=== PATIENT | female | born 1990 | race Caucasian/White ===

== ENCOUNTER → 2022-12-24 | Outpatient (CLI) | payer OTHER, SELFPAY ==
--- NOTE | 2022-12-24 15:18 | US_ITS ---
STUDY: ULTRASOUND OF THE FEMALE PELVIS - COMPLETE REASON FOR EXAM: Female, 32 years old. infertility LMP: TECHNIQUE: Transabdominal and transvaginal TECHNICAL QUALITY: Adequate. COMPARISON: None. FINDINGS: The uterus is anteverted and is in a midline position. The uterus measures 8.6 x 4.8 x 3.4 cm. Normal uterine cervix. The endometrium measures 10 mm in thickness, and is hyperechoic. There is no demonstrated endometrial mass. There is a small posterior fibroid measuring 2.1 x 1.8 x 1.2 cm. I.U.D. - The patient does not have an I.U.D. The right ovary is visualized. The right ovary measures 4.7 x 3.2 x 3 cm. There is no right ovarian cyst or ovarian mass. Small complex cyst measuring 2.1 x 2.1 x 2 cm . There is normal arterial and normal venous vascularity. The left ovary is visualized. The left ovary measures 3.1 x 2.1 x 1.7 cm cm. Small left ovarian cyst measuring 1.2 x 1 x 0.6 cm. There is no visualized left adnexal mass or complex lesion. There is normal arterial and normal venous vascularity. There is mild fluid in the cul-de-sac. The pre void volume of the bladder was 328.19 ml. US/Pelvic w/ Transvaginal IMPRESSION: Small complex right ovarian cyst and smaller simple cyst in left ovary Mild fluid in the cul-de-sac possibly due to ovulation. Electronically Signed: Sai Grissom MD at 16:58 EDT ,
== END | disposition home or self-care (01) ==
PROVIDERS: PCP Nurse Practitioner Family; Referring Provider Obstetrics & Gynecology; Visit Provider Obstetrics & Gynecology
DX: N97.9 Female infertility, unspecified (principal)
CPT/HCPCS: 76830; 76856

== ENCOUNTER → 2023-02-02 | Outpatient (CLI) | payer OTHER, SELFPAY ==
[2023-02-02 10:17] LABS: hCG Titer Quant., Serum 1074 mIU/mL (1-3)
== END | disposition home or self-care (01) ==
LOC: PAVLAB 09:16
PROVIDERS: PCP Nurse Practitioner Family; Referring Provider Nurse Practitioner Women's Health; Visit Provider Nurse Practitioner Women's Health
DX: N91.2 Amenorrhea, unspecified (principal)
CPT/HCPCS: 36415; 84702

== ENCOUNTER → 2023-02-04 | Outpatient (CLI) | payer OTHER, SELFPAY ==
[2023-02-04 12:03] LABS: hCG Titer Quant., Serum 2393 mIU/mL (1-3)
== END | disposition home or self-care (01) ==
LOC: PAVLAB 10:44
PROVIDERS: PCP Nurse Practitioner Family; Referring Provider Nurse Practitioner Women's Health; Visit Provider Nurse Practitioner Women's Health
DX: N91.2 Amenorrhea, unspecified (principal)
CPT/HCPCS: 36415; 84702

== ENCOUNTER → 2023-02-11 | Outpatient (CLI) | payer OTHER, SELFPAY ==
--- NOTE | 2023-02-11 14:15 | US_ITS ---
STUDY: FIRST TRIMESTER OBSTETRICAL ULTRASOUND REASON FOR EXAM: Female, 32 years old confirm RICHARD LMP: December 12, 2022. TECHNIQUE: Transvaginal TECHNICAL QUALITY: Adequate. PRIOR ULTRASOUND: None. FINDINGS: There is visualization of a single gestational sac in a normal intrauterine position. The mean sac diameter (MSD) measures 1.85 cm, indicating an estimated gestational age (EGA) of 6 weeks, 6 days. The gestational sac shape is within normal limits. There is a visualized yolk sac. The yolk sac measures 4.5 mm. The placenta is non-visualized. There is visualization of a live embryo. The crown-rump length (CRL) measures 5.2 mm, indicating an estimated gestational age (EGA) of 6 weeks, 3 days. There is demonstrated cardiac activity with a heart rate of 78 bpm. The estimated gestation age (EGA) by LMP is 6 weeks, 1 days. The estimated date of delivery (RICHARD) by LMP is October 06, 2023. The estimated gestation age (EGA) by US is 6 weeks, 5 days. The estimated date of delivery (RICHARD) by US is October 02, 2023. The uterus measures 9.4 cm x 5.3 cm x 4.3 cm. This is 1.6 cm x 1.6 cm x 1.2 cm fibroid. Findings suggestive of a partially septated uterus. The cervix is closed. The right ovary measures 2.4 cm x 2.6 x 1.8 cm. There is no right ovarian cyst. There is no visualized right adnexal mass or complex lesion. The left ovary measures 4.8 cm x 3.3 cm x 2.6 cm. There is no left ovarian cyst. There is no visualized left adnexal mass or complex lesion. There is no fluid in the cul de sac. US/Transvaginal w/Preg US IMPRESSION: Single live intrauterine gestation with a mean gestational age of 6 weeks and 3 days. Embryonic heart rate of 78bpm Electronically Signed: Pedrito Wong MD at 13:39 EDT ,
== END | disposition home or self-care (01) ==
LOC: US 14:10
PROVIDERS: PCP Nurse Practitioner Family; Referring Provider Nurse Practitioner Women's Health; Visit Provider Nurse Practitioner Women's Health
DX: Z34.90 Encounter for supervision of normal pregnancy, unspecified, unspecified trimester (principal)
CPT/HCPCS: 76817

== ENCOUNTER → 2023-02-18 | Outpatient (CLI) | payer OTHER, SELFPAY ==
--- NOTE | 2023-02-18 16:38 | US_ITS ---
STUDY: FIRST TRIMESTER OBSTETRICAL ULTRASOUND REASON FOR EXAM: Female, 32 years old patient with early . LMP: December 30, 2022. TECHNIQUE: Transvaginal TECHNICAL QUALITY: Adequate. PRIOR ULTRASOUND: Pelvic ultrasound dated February 11, 2023. FINDINGS: There is visualization of a single gestational sac in a normal intrauterine position. The mean sac diameter (MSD) measures 2.6 cm, indicating an estimated gestational age (EGA) of 7 weeks, 4 days. The gestational sac shape is within normal limits. There is a visualized yolk sac. The yolk sac measures 3.7 mm. The placenta is non-visualized. There is visualization of a live embryo. The crown-rump length (CRL) measures 7.2 mm, indicating an estimated gestational age (EGA) of 6 weeks, 5 days. There is demonstrated cardiac activity with a heart rate of 121 bpm and 132 bpm. The estimated gestation age (EGA) by LMP is 7 weeks, 1 days. The estimated date of delivery (RICHARD) by LMP is October 06, 2023. The estimated gestation age (EGA) by US is 7 weeks, 1 days. The estimated date of delivery (RICHARD) by US is October 06, 2023.. The uterus measures 9.9 x 5.2 x 6.6 cm. There is a small hypoechoic nodule within the posterior uterine myometrium measuring 1.4 x 1 x 1.7 cm. This is probably a small leiomyoma. The cervix is closed. The right ovary measures . There is no right ovarian cyst. There is no visualized right adnexal mass or complex lesion. The left ovary measures 3.9 x 2.3 x 2.8 cm. There is left ovarian cyst measuring 1.7 x 1.8 x 2.1 cm. There may be a corpus luteum as well arising from the left ovary measuring 1.8 x 1.5 x 1.7 cm. There is no visualized left adnexal mass or complex lesion. Color Doppler documents blood flow to both ovaries. There is no fluid in the cul de sac. US/Transvaginal w/Preg US IMPRESSION: Single living intrauterine gestation with estimated gestational age by size 7 weeks 1 day. Electronically Signed: India Hall MD at 1:46 EDT ,
== END | disposition home or self-care (01) ==
LOC: OPUS 16:35 → US 16:37
PROVIDERS: PCP Nurse Practitioner Family; Referring Provider Nurse Practitioner Women's Health; Visit Provider Nurse Practitioner Women's Health
DX: Z34.90 Encounter for supervision of normal pregnancy, unspecified, unspecified trimester (principal)
CPT/HCPCS: 76817

== ENCOUNTER → 2023-02-24 | Outpatient (CLI) | payer OTHER, SELFPAY ==
[2023-02-24 14:20] LABS: Absolute Lymphocyte Count 2.51 X10^3/uL (0.83-4.51); Absolute Neutrophil Count 7.6 X10^3/uL (2.0-7.7); Basophil# 0.05 X10^3/uL; Basophil% 0.5 % (0-1); Eosinophil# 0.11 X10^3/uL; Hematocrit 39.5 % (37-47); Hemoglobin 13.2 g/dL (12.0-15.0); Lymphocyte # 2.51 X10^3/ul (0.83-4.51); Lymphocyte % 22.9 % (19-41); Mean Corp Hgb Conc 33.4 g/dL (32-36); Mean Corpuscular Hgb 28.3 pg (27.0-32.0); Mean Corpuscular Volume 84.8 fL (81-99); Mean Platelet Vol. 9.5 fl (6.2-12.0); Monocyte# 0.67 X10^3/uL; Monocyte% 6.1 % (0-10); NRBC Flagged by Analyzer 0 % (0-5); Neutrophil # 7.58 X10^3/uL (2.7-7.7); Neutrophil % 69.2 % (47-70); Platelet Count 323 K/mm3 (150-450); RBC Distribution Width CV 12.7 % (11.6-14.6); RBC Distribution Width SD 38.9 fl (35.1-43.9); Red Blood Count 4.66 M/mm3 (4.2-5.4)
[2023-02-24 15:50] LABS: HIV - WCH Non-Reactive (Nonreactive); Hepatitis B Surface Antigen Non-Reactive (Nonreactive); Hepatitis C Antibody Non-Reactive (Nonreactive); Rubella IgG Reactive (Nonreactive); Syphilis Antibodies Non-reactive
== END | disposition home or self-care (01) ==
PROVIDERS: PCP Nurse Practitioner Family; Referring Provider Obstetrics & Gynecology; Visit Provider Obstetrics & Gynecology
DX: Z34.90 Encounter for supervision of normal pregnancy, unspecified, unspecified trimester (principal)
CPT/HCPCS: 36415; 84702; 85025; 86703; 86762; 86780; 86803; 86850; 86900; 86901; 87340

== ENCOUNTER → 2023-02-26 | Outpatient (CLI) | payer OTHER, SELFPAY | END | disposition home or self-care (01) | LOC: PAVLAB 14:15 | PROVIDERS: PCP Nurse Practitioner Family; Referring Provider Obstetrics & Gynecology; Visit Provider Obstetrics & Gynecology | DX: O26.859 Spotting complicating pregnancy, unspecified trimester (principal); Z3A.00 Weeks of gestation of pregnancy not specified | CPT/HCPCS: 36415; 84702 ==

== ENCOUNTER → 2023-03-05 | Outpatient (CLI) | payer OTHER, SELFPAY ==
[2023-03-07 14:12] LABS: Chlamydia By Nucleic Acid AMP Negative (Negative); Gonococcus By Nucleic Acid AMP Negative (Negative)
== END | disposition home or self-care (01) ==
LOC: LABSPEC 10:38
PROVIDERS: PCP Nurse Practitioner Family; Referring Provider Obstetrics & Gynecology; Visit Provider Obstetrics & Gynecology
DX: O09.90 Supervision of high risk pregnancy, unspecified, unspecified trimester (principal); Z3A.00 Weeks of gestation of pregnancy not specified
CPT/HCPCS: 87086; 87491; 87591

== ENCOUNTER → 2023-03-30 | Outpatient (CLI) | payer OTHER, SELFPAY ==
[2023-03-30 13:03] LABS: Glucose Challenge Gest 1H 50g 132 mg/dL (70-140)
== END | disposition home or self-care (01) ==
PROVIDERS: PCP Nurse Practitioner Family; Referring Provider Obstetrics & Gynecology; Visit Provider Obstetrics & Gynecology
DX: O09.90 Supervision of high risk pregnancy, unspecified, unspecified trimester (principal); Z3A.00 Weeks of gestation of pregnancy not specified
CPT/HCPCS: 36415; 82950

== ENCOUNTER 2023-04-24 10:38 | Outpatient (CLI) | payer OTHER, SELFPAY ==
[2023-04-24] MEDS: 0.9% NaCl Peripheral Flush Adult/Peds IV (11:03)
[2023-04-24] MEDS: Dextrose 5%-Lactated Ringers 1,000 ML 999 ML IV (11:03)
[2023-04-24] MEDS: Metoclopramide 10 MG/2 ML Vial IV (11:04)
[2023-04-24 11:10] VITALS: BP 127/76; PULSE 74; RESP 16; TEMP 36.3; O2SAT 97; BMI 31.7
[2023-04-24 12:18] VITALS: BP 109/65; PULSE 74
== END 2023-04-24 10:39 | disposition home or self-care (01) ==
LOC: MEDOUTP 10:38
PROVIDERS: PCP Nurse Practitioner Family; Referring Provider Obstetrics & Gynecology; Visit Provider Obstetrics & Gynecology
DX: E86.0 Dehydration (principal)
CPT/HCPCS: 96365; 96375; A4216

== ENCOUNTER → 2023-07-02 | Outpatient (CLI) | payer OTHER, SELFPAY ==
[2023-07-02 09:42] LABS: Absolute Lymphocyte Count 2.23 X10^3/uL (0.83-4.51); Absolute Neutrophil Count 6.8 X10^3/uL (2.0-7.7); Basophil# 0.03 X10^3/uL; Basophil% 0.3 % (0-1); Hematocrit 35.7 % (37-47); Lymphocyte # 2.23 X10^3/ul (0.83-4.51); Lymphocyte % 23.2 % (19-41); Mean Corp Hgb Conc 33.6 g/dL (32-36); Mean Corpuscular Hgb 28.8 pg (27.0-32.0); Mean Corpuscular Volume 85.6 fL (81-99); Mean Platelet Vol. 9.2 fl (6.2-12.0); Monocyte# 0.45 X10^3/uL; Monocyte% 4.7 % (0-10); NRBC Flagged by Analyzer 0 % (0-5); Neutrophil # 6.76 X10^3/uL (2.7-7.7); Neutrophil % 70.4 % (47-70); Platelet Count 324 K/mm3 (150-450); RBC Distribution Width CV 12.6 % (11.6-14.6); RBC Distribution Width SD 39.3 fl (35.1-43.9); Red Blood Count 4.17 M/mm3 (4.2-5.4); White Blood Count 9.6 K/mm3 (4.4-11.0)
[2023-07-02 10:18] LABS: Glucose Challenge Gest 1H 50g 120 mg/dL (70-140)
[2023-07-02 10:51] LABS: HIV - WCH Non-Reactive (Nonreactive); Syphilis Antibodies Non-reactive
== END | disposition home or self-care (01) ==
LOC: PAVLAB 08:58
PROVIDERS: PCP Nurse Practitioner Family; Referring Provider Obstetrics & Gynecology; Visit Provider Obstetrics & Gynecology
DX: O09.90 Supervision of high risk pregnancy, unspecified, unspecified trimester (principal); Z13.1 Encounter for screening for diabetes mellitus; Z3A.00 Weeks of gestation of pregnancy not specified
CPT/HCPCS: 36415; 82950; 85025; 86703; 86780; 86850; 86900; 86901

== ENCOUNTER 2023-08-03 14:55 | Outpatient (CLI) | payer OTHER, SELFPAY ==
[2023-08-03] VITALS (14 sets, daily range): BP systolic 120; BP diastolic 86; PULSE 78–100; TEMP 36.9; O2SAT 97–99; BMI 33.1
--- NOTE | 2023-08-03 15:17 | US_ITS ---
STUDY: OBSTETRICAL ULTRASOUND - BIOPHYSICAL PROFILE REASON FOR EXAM: Female, 32 years old nonreassuring FHR LMP: 12/30/2022 PRIOR ULTRASOUND: 02/18/2023. TECHNIQUE: Transabdominal TECHNICAL QUALITY: Adequate. FINDINGS: There is a single intrauterine fetus. The fetus is in a cephalic presentation. There is demonstrated cardiac activity with a heart rate of 152 bpm. There is a normal amniotic fluid volume. The largest amniotic fluid pocket measures 6.5 cm. The amniotic fluid index (PARVEZ) is 18.1 cm. The placenta is posterior in location and is not low lying. There are Grade 1 placental changes. Age by LMP: 30 weeks, 6 days. RICHARD by LMP: 10/06/2023. BIOPHYSICAL PROFILE: Breathing Movements (FBM): 2 Gross Body Movements (GBM): 2 Tone (FT): 2 Amniotic Fluid Volume (AFV): 2 TOTAL SCORE: US/Biophysical Prof W/O Non Stres IMPRESSION: Normal biophysical profile of 02/17. Electronically Signed: Rakesh Yeboah MD at 17:40 EST ,
--- OUTSIDE RECORDS SUMMARY | 2023-08-03 15:35 | XMS RPT_ITS | CCD ---
Author Name Unknown Address [address] [place] [address] Organization [facility] Care Team Providers Care Quality Controller Name Role Phone Tizzano, Mateo P Unavailable Unavailable Tizzano, Mateo P Unavailable Unavailable No Doctor Assigned, Nodr Unavailable Unavail able Tizzano, Mateo P Unavailable Unavailable Tizzano, Mateo P Unavailable Unavailable No Doctor Assigned, Nodr Unavailable Unavail able Tizzano, Mateo P Unavailable Unavailable No Doctor Assigned, Nodr Unavailable Unavail able Inverness, Radha D Unavailable Unavailable Inverness, Radha D Unavailable Unavailable Inverness, Radha D Unavailable Unavailable Inverness, Radha D Unavailable Unavailable Mervin, Radha D Unavailable Unavailable Inverness, Radha D Unavailable Unavailable Inverness, Radha D Unavailable Unavailable Mervin, Radha D Unavailable Unavailable Inverness, Radha D Unavailable Unavailable Mervin, Radha D Unavailable Unavailable Inverness, Radha D Unavailable Unavailable Mervin, Radha D Unavailable Unavailable Inverness, Radha D Unavailable Unavailable Mervin, Radha D Unavailable Unavailable Inverness, Radha D Unavailable Unavailable Mervin, Radha D Unavailable Unavailable Mervin, Radha D Unavailable Unavailable Mervin, Radha D Unavailable Unavailable Ezike, Duane A Unavailable Unavailable Ezike, Duane A Unavailable Unavailable Inverness, Radha D Unavailable Unavailable Shakir, Guru W Unavailable Unavailable Shakir, Guru W Unavailable Unavailable Inverness, Radha D Unavailable Unavailable Mervin, Radha D Unavailable Unavailable Inverness, Radha D Unavailable Unavailable Mervin, Radha D Unavailable Unavailable Mervin, Radha D Unavailable Unavailable Mervin, Radha D Unavailable Unavailable Tizzano, Mateo P Unavailable Unavailable Inverness, Radha D Unavailable Unavailable Tizzano, Mateo P Unavailable Unavailable Tizzano, Mateo P Unavailable Unavailable Mervin, Radha D Unavailable Unavailable Tizzano, Mateo P Unavailable Unavailable Inverness, Radha D Unavailable Unavailable Tizzano, Mateo P Unavailable Unavailable Inverness, Radha D Unavailable Unavailable Tizzano, Mateo P Unavailable Unavailable Inverness, Radha D Unavailable Unavailable Tizzano, Mateo P Unavailable Unavailable Mervin, Radha D Unavailable Unavailable GUEVARA GILLIAM Unavailable Unavailable MERVIN, RADHA D. Unavailable Unavailable Noemi Strange CNP Primary Care Provider [phone] Noemi Strange Unavailable Unavailable Unavailable NewtonRommelsparkle Vizcarra Unavailable Free, Text Entry Unavailable Unavailable Noemi Strange Unavailable Rafa Glez Unavailable Unavailable Bryce Jaquez Unavailable Unavailable ISAAC, LOUIE F Attending Unavailable NOEMI STRANGE Primary Care Unavailable LADARIUS, SIMÓN S Referring Unavailable GRAY, LOUIE F Attending Unavailable NOEMI STRANGE Primary Care Unavailable JOCELIN DURANDY S Referring Unavailable NOEMI STRANGE Primary Care Unavailable MAYRA GOTTLIEB Referring Unavailabl SUBHASH Duncan Attending Unavailable Allergies Allergy Classification Reported Allergen(s) Allergy Type Date of Onset Reaction(s) Facility Opioid Agonists (7 sources) Codeine; Translations: [codeine] Drug Allergy 1 Nausea and Vomiting [facility] Sulfonamides (antibiotic) (4 sources) Sulfonamides (Antibiotic); Translations: [Sulfa Drugs] Drug Allergy Unknown [facility] Work Phone: (8 sources) codeine; Translations: [codeine] Drug Allergy AOF, Vomiting [facility] Repository (9 sources) Sulfonamides (Antibiotic); Translations: [sulfa drugs] Propensity to adverse reactions to drug (disorder) AOF, Unknown [facility] Repository Medications Current Medications Medication Drug Class(es) Dates Sig (Normalized) Sig (Original) ondansetron 4 mg disintegrating oral tablet (11 sources) Serotonin-3 Receptor Antagonist Start: 08-01-2022 End: 08-04-2022 take 1 tablet by mouth three times daily ondansetron 4 mg oral tablet, disintegrating ; 1 tab(s) orally 3 times a day Quantity: 12 Refills: 0 Ordered: 01-Aug-2022 Bryce Jaquez Start: 01-Aug-2022 End: 04-Aug-2022 Generic Substitution Allowed Completed/Discontinued Medications Medication Drug Class(es) Dates Sig (Normalized) Sig (Original) azithromycin 250 mg oral tablet (3 sources) Macrolide Antimicrobial Start: 11-26-2021 End: 01-20-2022 Azithromycin 250 MG Oral Tablet TAKE 2 TABLETS ON DAY 1 THEN TAKE 1 TABLET A DAY FOR 4 DAYS. Quantity: 1 Refills: 0 Ordered: 26-Nov-2021 Rafa Chou Start : 26-Nov-2021 End : 20-Jan-2022 Complete cholecalciferol 0.05 mg oral capsule (2 sources) Vitamin D Start: 01-20-2022 take 1 capsule by mouth once daily QC Vitamin D3 50 MCG (1999 UT) Oral Capsule TAKE 1 CAPSULE Daily Quantity: 0 Refills: 0 Ordered: 20-Jan-2022 Rafa Chou Start : 20-Jan-2022 Active dextromethorphan hydrobromide 20 mg / guaiFENesin 400 mg oral tablet (3 sources) Uncompetitive R-iqujzx-M-aspartat e Receptor Antagonist, Sigma-1 Agonist Start: 11-26-2021 End: 01-20-2022 take 1 tablet by mouth every four hours as needed Dextromethorphan- guaiFENesin 20-400 MG Oral Tablet TAKE 1 TABLET EVERY 4 HOURS NEEDED. Quantity: 28 Refills: 0 Ordered: 26-Nov-2021 Rafa Chou Start : 26-Nov-2021 End : 20-Jan-2022 Complete hydrOXYzine hydrochloride 10 mg oral tablet (12 sources) Antihistamine Start: 07-26-2020 take 1-2 tablets by mouth every four to six hours as needed hydrOXYzine HCl - 10 MG Oral Tablet 1-2 tabs every 4-6 hours prn Quantity: 40 Refills: 1 Ordered: 18-Jan-2021 Gema Lipscomb Start : 26-Jul-2020 Active levonorgestrel 0.688482 mg/hr intrauterine system (6 sources) Progestin, Progestin-containin g Intrauterine Device Mirena (52 MG) 20 MCG/24HR Intrauterine Intrauterine Device Quantity: 0 Refills: 0 Ordered: 24-Oct-2020 DO Active Magnesium (4 sources) Magnesium TABS Quantity: 0 Refills: 0 Ordered: 18-Jan-2021 DO Active naratriptan 2.5 mg oral tablet (5 sources) Serotonin-1b and Serotonin-1d Receptor Agonist Start: 12-18-2020 Naratriptan HCl - 2.5 MG Oral Tablet Quantity: 9 Refills: 0 Ordered: 18-Dec-2020 DO Start : 18-Dec-2020 Active Problems Active Problems Problem Classification Problem Date Documented Date Episodic/Chronic Anxiety disorders (11 sources) Generalized anxiety disorder; Translations: [Generalized anxiety disorder] Chronic Cardiac dysrhythmias (4 sources) Tachycardia; Translations: [Tachycardia, unspecified] Onset: 08-01-2022 08-01-2022 Episodic Contraceptive and procreative management (13 sources) Intrauterine contraceptive device in situ; Translations: [Presence of intrauterine contraceptive device] Resolved: 04-23-2021 Episodic Past or Other Problems Problem Classification Problem Date Documented Da te Episodic/Chronic Unclassified (11 sources) Finding of menstrual bleeding; Translations: [Menstruation] Results Test Name Value Interpretation Reference Range Facil ity Vital Signs Date Time Vital Sign Value Performing Clinician Facility 08-04-2022 09:50-0500 Body height 170.18 cm Rafa Egand Work Phone: [facility] Work Phone: 08-04-2022 09:50-0500 Body mass index (BMI) [Ratio] 33.12 kg/m2 Rafa Egand Work Phone: [facility] Work Phone: 08-04-2022 09:50-0500 Body surface area Derived from formula 2.07 m2 Rafa Egand Work Phone: [facility] Work Phone: 08-04-2022 09:50-0500 Body weight 95.91 kg Rafa Vizcarra Newton Work Phone: [facility] Work Phone: 08-04-2022 09:50-0500 Diastolic blood pressure 80 mm[Hg] Rafa Vizcarra Newton Work Phone: [facility] Work Phone: 08-04-2022 09:50-0500 Heart rate 95 /min Rafa Glez Work Phone: [facility] Work Phone: 08-04-2022 09:50-0500 Systolic blood pressure 126 mm[Hg] Rafa Glez Work Phone: [facility] Work Phone: 08-01-2022 19:00-0500 Diastolic blood pressure 95 mm[Hg] Text Entry [facility] 08-01-2022 19:00-0500 Heart rate 84 /min Text Entry [facility] 08-01-2022 19:00-0500 Respiratory rate 18 /min Text Entry [facility] 08-01-2022 19:00-0500 SaO2% (BldA) [Mass fraction] 97 % Text Entry [facility] 08-01-2022 19:00-0500 Systolic blood pressure 120 mm[Hg] Text Entry [facility] 08-01-2022 15:43-0500 Body height 172.7 cm Text Entry [facility] 08-01-2022 15:43-0500 Body temperature 97.7 [degF] Text Entry [facility] 08-01-2022 15:43-0500 Body weight 95.5 kg Text Entry [facility] 01-20-2022 08:38-0400 Body height 170.18 cm Rafa Glez Work Phone: [facility] Work Phone: 01-20-2022 08:38-0400 Body mass index (BMI) [Ratio] 33.21 kg/m2 Rafa Glez Work Phone: [facility] Work Phone: 01-20-2022 08:38-0400 Body surface area Derived from formula 2.07 m2 Rafa Glez Work Phone: [facility] Work Phone: 01-20-2022 08:38-0400 Body weight 96.19 kg Rafa Egand Work Phone: [facility] Work Phone: 01-20-2022 08:38-0400 Diastolic blood pressure 84 mm[Hg] Rafa Vizcarra Crocheron Work Phone: [facility] Work Phone: 01-20-2022 08:38-0400 Heart rate 79 /min Rafa Vizcarra Crocheron Work Phone: [facility] Work Phone: 01-20-2022 08:38-0400 Systolic blood pressure 130 mm[Hg] Rafa Egand Work Phone: [facility] Work Phone: 11-26-2021 09:42-0400 Body height 170.18 cm Rafa Egand Work Phone: [facility] Work Phone: 11-26-2021 09:42-0400 Body mass index (BMI) [Ratio] 33.07 kg/m2 Rafa Egand Work Phone: [facility] Work Phone: 11-26-2021 09:42-0400 Body surface area Derived from formula 2.07 m2 Rafa Egand Work Phone: [facility] Work Phone: 11-26-2021 09:42-0400 Body weight 95.77 kg Rafa Egand Work Phone: [facility] Work Phone: 11-26-2021 09:42-0400 Diastolic blood pressure 76 mm[Hg] Rafa Vizcarra Crocheron Work Phone: [facility] Work Phone: 11-26-2021 09:42-0400 Systolic blood pressure 126 mm[Hg] Rafa Glez Work Phone: [facility] Work Phone: 06-17-2021 11:02-0500 Body height 170.18 cm Noemi Strange Work Phone: [place] [address] [place] Work Phone: 06-17-2021 11:02-0500 Body mass index (BMI) [Ratio] 32.49 kg/m2 Noemi Strange Work Phone: [place] [address] [place] Work Phone: 06-17-2021 11:02-0500 Body surface area Derived from formula 2.05 m2 Noemi Strange Work Phone: [place] [address] [place] Work Phone: 06-17-2021 11:02-0500 Body temperature 97.1 [degF] Noemi Strange Work Phone: [place] [address] [place] Work Phone: 06-17-2021 11:02-0500 Body weight 94.1 kg Noemi Strange Work Phone: [place] [address] [address] Work Phone: 06-17-2021 11:02-0500 Diastolic blood pressure 80 mm[Hg] Noemi Strange Work Phone: [place] [address] [address] Work Phone: 06-17-2021 11:02-0500 Systolic blood pressure 120 mm[Hg] Noemi L Celena Work Phone: [place] [address] [address] Work Phone: 04-23-2021 09:54-0400 Body height 170.18 cm Noemi Strange Work Phone: [place] [address] [address] Work Phone: 04-23-2021 09:54-0400 Body mass index (BMI) [Ratio] 32.56 kg/m2 Noemi Strange Work Phone: [place] [address] [address] Work Phone: 04-23-2021 09:54-0400 Body surface area Derived from formula 2.06 m2 Noemi Strange Work Phone: [address] Work Phone: 04-23-2021 09:54-0400 Body temperature 98.2 [degF] Noemi Strange Work Phone: [address] Work Phone: 04-23-2021 09:54-0400 Body weight 94.3 kg Noemi Strange Work Phone: [address] Work Phone: 04-23-2021 09:54-0400 Diastolic blood pressure 78 mm[Hg] Noemi L Celena Work Phone: [address] Work Phone: 04-23-2021 09:54-0400 Systolic blood pressure 118 mm[Hg] Noemi L Celena Work Phone: [address] Work Phone: 02-15-2021 15:26-0400 Body height 170.18 cm Noemi L Celena Work Phone: [facility] Work Phone: 02-15-2021 15:26-0400 Body mass index (BMI) [Ratio] 32.89 kg/m2 Noemi L Celena Work Phone: [facility] Work Phone: 02-15-2021 15:26-0400 Body surface area Derived from formula 2.06 m2 Noemi L Celena Work Phone: [facility] Work Phone: 02-15-2021 15:26-0400 Body weight 95.26 kg Noemi L Celena Work Phone: [facility] Work Phone: 02-15-2021 15:26-0400 Diastolic blood pressure 80 mm[Hg] Noemi L Celena Work Phone: [facility] Work Phone: 02-15-2021 15:26-0400 Heart rate 72 /min Noemi L Celena Work Phone: [facility] Work Phone: 02-15-2021 15:26-0400 Systolic blood pressure 122 mm[Hg] Noemi L Celena Work Phone: [facility] Work Phone: 01-18-2021 10:08-0400 Body height 170.18 cm Noemi L Celena Work Phone: [facility] Work Phone: 01-18-2021 10:08-0400 Body mass index (BMI) [Ratio] 32.65 kg/m2 Noemi L Celena Work Phone: [facility] Work Phone: 01-18-2021 10:08-0400 Body surface area Derived from formula 2.06 m2 Noemi Strange Work Phone: [facility] Work Phone: 01-18-2021 10:08-0400 Body weight 94.55 kg Noemi L Celena Work Phone: [facility] Work Phone: 01-18-2021 10:08-0400 Diastolic blood pressure 80 mm[Hg] Noemi L Celena Work Phone: [facility] Work Phone: 01-18-2021 10:08-0400 Heart rate 76 /min Noemi L Celena Work Phone: [facility] Work Phone: 01-18-2021 10:08-0400 Systolic blood pressure 118 mm[Hg] Noemi Strange Work Phone: [facility] Work Phone: 12-18-2020 09:24-0400 Body height 172.7 cm Erma Raedy DO Work Phone: [facility] 12-18-2020 09:24-0400 Body mass index (BMI) [Ratio] 31.6 kg/m2 Erma Raedy DO Work Phone: [facility] 12-18-2020 09:24-0400 Body temperature 98.29 [degF] Erma Raedy DO Work Phone: [facility] 12-18-2020 09:24-0400 Body weight 94.26 kg Erma Raedy DO Work Phone: [facility] 12-18-2020 09:24-0400 Diastolic blood pressure 90 mm[Hg] Erma Raedy DO Work Phone: [facility] 12-18-2020 09:24-0400 Heart rate 75 /min Erma Raedy DO Work Phone: [facility] 12-18-2020 09:24-0400 Respiratory rate 16 /min Erma Raedy DO Work Phone: [facility] 12-18-2020 09:24-0400 SaO2% (BldA) [Mass fraction] 98 % Erma Raedy DO Work Phone: [facility] 12-18-2020 09:24-0400 Systolic blood pressure 135 mm[Hg] Erma Raedy DO Work Phone: [facility] 11-02-2020 09:47-0400 Body height 172.7 cm Erma Raedy DO Work Phone: [facility] 11-02-2020 09:47-0400 Body mass index (BMI) [Ratio] 31.79 kg/m2 Erma Raedy DO Work Phone: [facility] 11-02-2020 09:47-0400 Body temperature 98.6 [degF] Erma Raedy DO Work Phone: [facility] 11-02-2020 09:47-0400 Body weight 94.85 kg Erma Raedy DO Work Phone: [facility] 11-02-2020 09:47-0400 Diastolic blood pressure 90 mm[Hg] Erma Raedy DO Work Phone: [facility] 11-02-2020 09:47-0400 Heart rate 86 /min Erma Raedy DO Work Phone: [facility] 11-02-2020 09:47-0400 Respiratory rate 16 /min Erma Raedy DO Work Phone: [facility] 11-02-2020 09:47-0400 SaO2% (BldA) [Mass fraction] 100 % Erma Raedy DO Work Phone: [facility] 11-02-2020 09:47-0400 Systolic blood pressure 135 mm[Hg] Erma Raedy DO Work Phone: [facility] Encounters Encounter Date Encounter Type Care Provider Facility Start: 07-14-2023 End: 07-14-2023 ambulatory NOEMI STRANGE [facility] Start: 06-08-2023 End: 06-08-[address] [facility] Start: 05-11-2023 End: 05-11-[address] [facility] Start: 08-04-2022 Office outpatient vi sit 15 minutes Rafa Glez Work Phone: [facility] Work Phone: Start: 08-01-2022 End: 08-01-2022 Emergency department patient visit Bryce Jaquez [facility] Emergency 04 Start: 01-20-2022 Office outpatient vi sit 15 minutes Rafa Glez Work Phone: [facility] Work Phone: Start: 11-27-2021 Chart Update Rafa Egand Work Phone: [facility] Work Phone: Start: 11-26-2021 Office outpatient vi sit 15 minutes Rafa Egand Work Phone: [facility] Work Phone: Start: 06-17-2021 Patient encounter procedure Noemi Vizcarra Seitz Work Phone[facility] Work Phone: Start: 05-25-2021 Chart Update Noemi Strange Work Phone: [facility] Work Phone: Start: 04-23-2021 Periodic preventive med est patient 18-39 yrs Noemi Vizcarra Seitz Work Phone: [facility] Work Phone: Start: 02-15-2021 Office outpatient vi sit 10 minutes Noemi Strange Work Phone: [facility] Work Phone: Start: 01-18-2021 Office outpatient vi sit 15 minutes Noemi Strange Work Phone: [facility] Work Phone: Start: 12-18-2020 End: 12-18-2020 Office outpatient visit 15 minutes Erma Haskins DO Work Phone: [facility] Neurology Procedures Date Procedure Procedure Detail Performing Clinician Start: 08-01-2022 End: 08-01-2022 EKG impression Bryce Jaquez Insertion of intraut erine contraceptive device Noemi Vizcarra Celena Work Phone: Plan of Treatment Date Care Activity Detail Author Start: 01-26-2023 EPV, Provider: Rafa Glez, Status: Pen, Time: 8:15 AM EPV, Provider: Rafa Glez, Status: Pen, Time: 8:15 AM [facility] Work Phone: Start: 01-26-2023 Patient encounter procedure [facility] Start: 01-20-2022 EPV, Provider: Rafa Glez, Status: Pen, Time: 8:45 AM EPV, Provider: Rafa Glez, Status: Pen, Time: 8:45 AM [facility] Work Phone: Start: 01-20-2022 EPV, Provider: Gema Ponce, Status: Pen, Time: 8:30 AM EPV, Provider: Gema Ponce, Status: Pen, Time: 8:30 AM [facility] Work Phone: Start: 06-17-2021 IUDRMVL, Provider: Richardson Mary, Status: Pen, Time: 11:00 AM [facility], Provider: Richardson Mary, Status: Pen, Time: 11:[address] Work Phone: Start: 04-23-2021 Patient encounter procedure ANNUAL, Provider: Richardson Mary, Status: Pen, Time: 9:45 AM [facility] Work Phone: Start: 04-19-2021 End: 04-19-2021 Patient encounter procedure 04/19/2021 Office Visit Neurology Erma Haskins [place] [address] [place] [address] [phone] [facility] Neurology Start: 03-13-2021 Influenza vaccination INFLUENZ A VACCINE (Season Ended) [facility] Start: 12-18-2020 End: 12-18-2020 Patient encounter procedure 12/18/2020 Office Visit Neurology Erma Haskins [place] [address] [place] [address] [phone] [facility] Start: 2009 Screening for malign ant neoplasm of cervix CERVICAL CANCER SCREENING DISCUSSION [facility] Start: 10-22-2007 Third diphtheria, te tanus and acellular pertussis (DTaP) vaccination TDAP (ADULT) [facility] Start: 2006 Tetanus vaccination TETANUS [facility] Start: 2004 COVID-19 VACCINE (1) COVID-19 VACCIN E (1) [facility] Start: 10-22-2003 HIV screening HIV SCREENING DISCUSSION [facility] Start: 2001 HIV screening HIV SCREENING DISCUSSION [facility] Start: 1988 Hepatitis C antibody , confirmatory test HEPATITIS C VIRUS SCREENING [facility] Immunizations Immunization Date Immunization Notes Care Provider Fa cility 10-26-2020 Pfizer-BioNTech COVI D-19 Vacc 30 MCG/0.3ML Intramuscular Suspension Noemi Strange Work Phone: [facility] Work Phone: 09-27-2020 Pfizer-BioNTech COVI D-19 Vacc 30 MCG/0.3ML Intramuscular Suspension Noemi Strange Work Phone: [facility] Work Phone: Payers Date Payer Category Payer Private Health Insurance NALLELY DEL ROSARIO [id number] 2020-Present [id number] 2017 Private Health Insurance [id number] 2017 Private Health Insurance 1988 Unknown [id number] 1988 Unknown [id number] 1988 Unknown [id number] Unknown Unknown [id number] Social History Date Type Detail [facility] Start: 1990 Sex Assigned At Not on file [employer] Exposure to SARS-CoV -2 (event) Not sure [facility] [address] [facility] End: 04-23-2021 Never smoker Never smoker [facility] Work Phone: Goals Date Patient Goal Desired Activity /State Clinical Notes 09-13-2009 to 08-01-2022 Erma Haskins, DO - 12/18/2020 9:40 AM EDTPatient InstructionsErma Haskins, DO - 11/02/2020 10:00 AM EDTPatient Instructions Note Date & Type Note Facility 08-01-2022 History of Present illness Narrative Anahy is a 31 yo female, her etoday for ER follow up. She was treated in ER on 08/01/2022 for nausea and rapid HR. Testing was negative for acuet disease process, she was treated for dehydration with 1 liter of IVF and Zofran for nausea.She continues to complain of nausea and reports pain/pressure under breast bone (points to epigastric), reports she gets a burning sensation with eating.sometime pain radiates to right upper abdomen.reports nauseaDenies: vomiting, constipation or diarrheaReviewed labs and ER work up including: troponin, lipase, liver panel, BMP, CBC, PT/INR, UA, CXR, and blood cultures. All tests were normal. [facility] Work Phone: 11-23-2021 History of Present illness Narrative Anahy is a 31 yo female here today with complaints of severe cough, sore throat, and sinus drainage. She reports Sx onset; sore throat on Thursday, cough started on Thursday, hoarseness started on Thursday. 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 Unsure if been around anyone else ill.Is COVID vaccinated and boosted times 1. She has not had COVID, is unaware if she has been around anyone with COVID [facility] Work Phone: 04-23-2021 Note 32 Date of Procedure: 04/23/2021 Pathologist: [facility], Cytology Date Reported: 05/01/2021 Date Received: 04/24/2021 Submitting Physician: RICHARDSON JEANIE BRANT, DO FINAL CYTOLOGICAL INTERPRETATION A. THINPREP PAP CERVICAL: Specimen adequacy: SATISFACTORY FOR EVALUATION. Quality Indicator: Endocervical/transformation zone component is present. Quality Indicator: Partially obscuring inflammation. General Categorization: NEGATIVE FOR INTRAEPITHELIAL LESION OR MALIGNANCY. HIGH RISK HPV TEST RESULT: HPV GENOTYPE 16 NEGATIVE HPV GENOTYPE 18 NEGATIVE HPV GENOTYPE OTHER NEGATIVE Reference Range: Negative Testing for high-risk (HR) type of human papilloma virus (HPV) is performed by the [employer] sid HPV Test. The sid HPV Test is a qualitative polymerase chain reaction that amplifies DNA of HPV16, HPV18 and 12 other high-risk HPV types (31, 33, 35, 39, 45, 51, 52, 56, 58, 59, 66, and 68) associated with cervical cancer and its precursor lesions. A positive result indicates the presence of HPV DNA due to one or more of the 14 genotypes: 16, 18, 31, 33, 35, 39, 45, 51, 52, 56, 58, 59, 66, and 68. Negative results indicate HPV DNA concentrations are undetectable or below the pre-set threshold for detection. False negative results may be associated with unoptimized sampling. A negative HR HPV result does not exclude the possibility of future cytologic HSIL or underlying CIN2-3 or cancer. This test is approved for cervical specimens by the US Food and Drug Administration. Results of this test should be interpreted in conjunction with the patient?s Pap test results. Please refer to ASCCP current guidelines for the use of HPV DNA testing, result interpretation, and patient management. The performance of this test was verified by the [facility] at [facility]. The lab is certified under the Clinical Laboratory Amendments of 1988 (CLIA 88) as qualified to perform high complexity clinical laboratory testing. This specimen has been analyzed by the [employer] Energy[employer] Imaging System ([employer] an automated imaging and review system, which assists the laboratory in evaluating cells on ThinPrep Pap tests. Following automated imaging, selected leonard from every slide were reviewed by a bicycle mechanic and/or pathologist. Electronically Signed Out By [facility], Cytology//ELC By the signature on this report, the individual or group listed as making the Final Interpretation/Diagnosis certifies that they have reviewed this case. Educational Note: Cervical cytology is a screening procedure primarily for squamous cancers and precursors and has associated false-negative and false-positive results as evidenced by published data. Your patient?s test should be interpreted in this context, together with patient?s history and clinical findings. Regular sampling and follow-up of unexplained clinical signs and symptoms are recommended to minimize false negative results. Clinical History Date of Last Menstrual Period: IUD Other Clinical Conditions: COTEST HPV(Genotype) except for ASC-H, HSIL, Carcinoma - Include HPV Genotype testing Annual Clinical Diagnosis History: Screening for cervical cancer - (Z12.4) Source of Specimen A: THINPREP PAP CERVICAL [facility] Department of Pathology [id number] [facility] Diagnosis Temporomandibular disorder- Primary Temporomandibular joint disorders, unspecified Occipital neuralgia of right side Intractable migraine with aura with status migrainosus Migraine with aura, with intractable migraine, so stated, with status migrainosus [facility] [id number] y.o. female presents for possible Lyme disease. She was at a jew outing where several youths found a tick on their body. She denies seeing a tick on her person. She has a bruise on her left thigh that resembles a bullseye appearance described in Lyme disease so she is concerned. She denies feeling ill.[facility] Work Phone: History of Present illness [id number] G0 presents for annual exam. Patient safe at home denies abuse. Patient has migraines improving with adjustment of meds and finding out there is an occiput component. Patient working on physical activity. Patient COVID vaccinated. Patient does have breast exams no new lumps bumps masses. Patient notes she has an IUD and that they are thinking about conception here in the next couple mo nths. Patient already started vitamins. Patient is no acute concerns [employer] [employer] Work Phone: History of Present illness [id number] presents for IUD removal. Considering fertility in the near future. Been taking vitamins. Patient has no acute [facility] Work Phone: History of Present illness Narrative* The last health maintenance visit was unknown year(s) ago. Concerns raised today include: fatigue and decrease in appetite. The patient's health since the last visit is described as good. There are no interval changes in the patient's PMH, PSH, and current medications. There are no interval changesin the patient's social and family history. She does not have regular dental visits. She complains of vision problems. Vision care includes wearing glasses, an eye examination more than a year ago and 06/2020 last exam. She denies hearing loss. Immunizations status: up to date. * Lifestyle: She consumes a diverse and healthy diet. She has weight concerns. Weight control issues:overweight. She exercises regularly. She exercises yoga 3-4 times a week. She does not use tobacco.She consumes alcohol. She reports drinking 1 drinks per week. She typically drinks wine. denies illicit drug use. * Reproductive health: she reports normal menses. she uses no contraception. she is sexually active. [facility]: 12/28/21. * History: 0. * Cervical cancer screening: cancer screening reviewed and current . patient has no history of an abnormal pap smear. * Metabolic screening: lipid profile performed within the past five years. * Anahy is a 31 yo female here today for annual wellness. She reports her health as good, she complains of increase in fatigue and poor appetite, no weight loss. She sees psychiatry every 3 months,[employer] annually. * denies any SI or HI. * No other health concerns [facility] Work Phone: Summary Purpose Family History No Family History Records FoundUnknown Family Member Name Dates Details No pertinent family history: Mother(V49.89, Z78.9) Status:Active Family history of Graves' di sease: Father(V18.19, Z83.49) Status:Active Unknown Family Member Name Dates Details No pertinent family history: Mother(V49.89, Z78.9) Status:Active Family history of Graves' di sease: Father(V18.19, Z83.49) Status:Active Unknown Family Member Name Dates Details No pertinent family history: Mother(V49.89, Z78.9) Status:Active Family history of Graves' di sease: Father(V18.19, Z83.49) Status:Active Unknown Family Member Name Dates Details No pertinent family history: Mother(V49.89, Z78.9) Status:Active Family history of Graves' di sease: Father(V18.19, Z83.49) Status:Active Unknown Family Member Name Dates Details No pertinent family history: Mother(V49.89, Z78.9) Status:Active Family history of Graves' di sease: Father(V18.19, Z83.49) Status:Active Unknown Family Member Name Dates Details No pertinent family history: Mother(V49.89, Z78.9) Status:Active Family history of Graves' di sease: Father(V18.19, Z83.49) Status:Active Unknown Family Member Name Dates Details No pertinent family history: Mother(V49.89, Z78.9) Status:Active Family history of Graves' di sease: Father(V18.19, Z83.49) Status:Active Unknown Family Member Name Dates Details No pertinent family history: Mother(V49.89, Z78.9) Status:Active Family history of Graves' di sease: Father(V18.19, Z83.49) Status:Active Unknown Family Member Name Dates Details No pertinent family history: Mother(V49.89, Z78.9) Status:Active Family history of Graves' di sease: Father(V18.19, Z83.49) Status:Active Unknown Family Member Name Dates Details No pertinent family history: Mother(V49.89, Z78.9) Status:Active Family history of Graves' di sease: Father(V18.19, Z83.49) Status:Active Advance Directives No Advanced Directives Records FoundNo Advanced Directives Records FoundNo Advanced Directives Records FoundNo Advanced Directives Records FoundNo Advanced Directives Records FoundNo Advanced Directives Records Found Reason for Referral Status Reason Specialty Diagnoses / Procedures Referred By Contact Referred To Contact New Request Physical Therapy Diagnoses Temporomandibular disorder Erma Haskins, DO [address] [place] [address] [facility] [address] [place] [address] Scheduling Instructions . Status Reason Specialty Diagnoses / Procedures Referred By Contact Referred To Contact New Request Physical Therapy Diagnoses Temporomandibular disorder Occipital neuralgia of right side Erma Haskins, DO [address] [place] [address] [facility] [address] [place] [address] Chief Complaint 3 month med check.3 month med check.3 month med check.Bruise/rash consistent with lymes disease.PT IS HERE TODAY FOR A ANNUAL EXAM. LAST PAP 11/2017. HAS NO CONCERNS. DOES A SELF BREAST CHECK OCCASIONALLY. LMP: IUDPT IS HERE TODAY FOR THE REMOVAL OF THE IUD. PT STATES IS NOT INTERESTED IN ANY CONTROL. HAS NO CONCERNS. LMP: IUDPATIENT HERE TODAY WITH COMPLAINTS OF A SORE THROAT, COUGH, SINUS DRAINAGE, AND RIGHT EAR DISCOMFORT.Med refill - doesn't need anything today.ER follow-up. Additional Source Comments INFORMATION SOURCE (unrecogn ized section and content) DATE CREATED AUTHOR AUTHOR'S ORGANIZ ATION 12/31/2017 [facility] DATE CREATED AUTHOR AUTHOR'S ORGANIZ ATION 11/29/2021 [facility] DATE CREATED AUTHOR AUTHOR'S ORGANIZ ATION 01/20/2022 [employer] DATE CREATED AUTHOR AUTHOR'S ORGANIZ ATION 01/20/2022 [facility] DATE CREATED AUTHOR AUTHOR'S ORGANIZ ATION 07/15/2023 [facility] Reason for Visit (unrecogniz ed section and content) Reason Comments Follow-up Migraine <item> Privacy Markings (unrecogniz ed section and content) Section Author: Nica Gregory PROHIBITION ON REDISCLOSURE OF CONFIDENTIAL INFORMATION This notice accompanies a disclosure of information concerning a client made to you with the consent of such client. FOR RECORDS PERTAINING TO PATIENTS WHO ARE OR HAVE BEEN ENROLLED IN A CHEMICAL DEPENDENCY/SUBSTANCEABUSE PROGRAM, SOME INFORMATION MAY BE OMITTED. This clinical summary was aggregated from multiple sources. Caution should be exercised in using it in the provision of clinical care. This summary normalizes information from multiple sources, and as a consequence, information in this document may materially change the coding, format and clinical context of patient data. In addition, data may be omitted in some cases. CLINICAL DECISIONS SHOULD BE BASED ON THE PRIMARY CLINICAL RECORDS. [facility] [employer] [facility]. provides no warranty or guarantee of the accuracy or completeness of information in this document.
[2023-08-03] MEDS: Lactated Ringers 1,000 ML 999 ML IV (16:00)
--- NOTE | 2023-08-03 18:33 | OB.TRI.HP_ITS ---
HPI - General General Date of Admission: 08/03/23 HPI Narrative JUWAN SHIPLEY, is a 32 y/o G1 at 30 weeks who presents to L&D due to audible decels in office. NST here shows some spontaneous low amplitude changes in baseline down to 80 for less than 5 seconds. BPP was 8/8 with an PARVEZ of 18. Patient feels good movement Maternal Data Information RICHARD Calculator Estimated Delivery Date Method Current WG Current Estimate 10/06/23 LMP (Certain) 30w 6d Other Estimates 10/08/23 Ultrasound #1 30w 4d PFSH PFSH Home Medications sertraline 50 mg tablet (Zoloft) 75 mg PO DAILY 12/18/22 [History Last Taken Unknown] multivitamin no.47-iron fum 27 mg-folate no.1 1 mg-dha 300 mg capsule (PNV-DHA) 1 cap PO DAILY 02/24/23 [History Last Taken Unknown] ondansetron HCl 4 mg tablet 4 mg PO Q6H 02/24/23 [History Last Taken Unknown] Allergy/AdvReac Type Severity Reaction Status Date / Time codeine Allergy Severe Vomiting Verified 08/03/23 17:01 Family History Grandmother Breast cancer Father Graves disease Other Heart disease Surgical History History of placement of ear tubes History of tonsillectomy [place] teeth removed Social History adopted: No household members: spouse current occupational status: employed 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 current occupational exposures/hazards: No pets and animals: Yes pets and animals: dog(s) history of recent travel: No sexually active: Yes Smoking Status: Never smoker alcohol intake: never substance use type: does not use well-balanced diet: daily or most days caffeine: Yes Type: coffee Number of servings: 1 eating out: 1-3 times/week during the past year weight has: remained stable what type of physical activity do you participate in: walking and yoga frequency: 3-4 times per week duration: 30-45 minutes/day marie/baptist: Judaism seatbelt use: always do you feel safe at home: Yes additional social history: Spouse - Renato ( [employer]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 LARC form signed: yes Problem list reviewed and updated with the most current plan of care details and appropriate orders placed. Relevant counseling for the gestational age provided. Continue routine care and follow up unless otherwise noted in visit n otes/problem list details OB Flowsheet Initial Weight: Not Recorded Date -?-?-?-?-?-?-?-?-?-?--?-?- EGA Weight BP Urine Prot -?-?-?-?-?-?-?-?-?-?-?-?- Glucose FHR FuHt Pres Dilation -?-?-?-?-?-?-?-?-?-?-?-?- Effaced St Visit Note 03/05/23 -?-?-?-?-?-?-?-?-?-?-?-?- 9w 2d 213 lb 6 oz 135/95 -?-?-?-?-?-?-?-?-?-?-?-?- 160 -?-?-?-?-?-?-?-?-?-?-?-?- SM- CRL 2 cm con s with LMP 04/03/23 -?-?-?-?-?-?-?-?-?-?-?-?- 13w 3d 210 lb 8 oz 130/78 Nega tive -?-?-?-?-?-?-?-?-?-?-?-?- Negative -?-?-?-?-?-?-?-?-?-?-?-?- KW- no vb/crampi ng. flu shot today. no concerns. FHT visualized with handheld US. 10/24/23 -?-?-?-?-?-?-?-?-?-?-?-?- 18w 0d 209 lb 8 oz 122/82 Nega tive -?-?-?-?-?-?-?-?-?-?-?-?- Negative 144 -?-?-?-?-?-?-?-?-?-?-?-?- MH-Nausea persis ts, managing better with reglan and zofran. Needs anatomy US scheduled. No VB. No flutters yet. Active IUP on brief US 06/03/23 -?-?-?-?-?-?-?-?-?-?-?-?- 22w 1d 214 lb 8 oz 138/82 Nega tive -?-?-?-?-?-?-?-?-?-?-?-?- Negative 145 -?-?-?-?-?-?-?-?-?-?-?-?- SM- no vb mild c ramping, nausea improving 07/03/23 -?-?-?-?-?-?-?-?-?-?-?-?- 26w 3d 214 lb 8 oz 115/72 Nega tive -?-?-?-?-?-?-?-?-?-?-?-?- Negative 140 27 -?-?-?-?-?-?-?-?-?-?-?-?- JV- no lof, vagi nal bleeding, or dec fm. no complaints. is rh negative also so will not need rhogam. normal 28 week labs. 07/20/23 -?-?-?-?-?-?-?-?-?-?-?-?- 28w 6d 219 lb 4 oz 112/72 Nega tive -?-?-?-?-?-?-?-?-?-?-?-?- Negative 131 28 -?-?-?-?-?-?-?-?-?-?-?-?- MH-no VB, LOF. G ood Fm. tdap, larc. 08/03/23 -?-?-?-?-?-?-?-?-?-?-?-?- 30w 6d 218 lb 112/70 -?-?-?-?-?-?-?-?-?-?-?-?- 140 30 -?-?-?-?-?-?-?-?-?-?-?-?- LC- no vb/ctx/lo f. good fm. decreased fluids today. LC- no vb/ctx/lof. good fm. decreased PO fluids today. had audible decel in the office x3, NST with variable. sent to for IV hydration, monitoring and BPP. NST FHR Rate Baby A Baseline: 120 Variability:: Moderate Accelerations:: 10 x 10 Decelerations:: Variable NST Reactive:: Yes FHR Category:: Category I Uterine Activity:: no contractions Assessment & Plan (1) COVID-19 affecting in second trimester: COMMENT: asa 81 mg daily (2) Low lying placenta nos or without hemorrhage, second trimester: COMMENT: pelvic rest, repeat US with MFM to reevaluate blood vessels also due to concern for maternal or vessel around cervix- was unclear at initial scan; persists at 22 wk, repeat 28 wk; Growth at 47% Vessels and low placenta all resolved. Growth 07/14/23 62% (3) Rh negative status during : QUALIFIERS: Trimester: second trimester Qualified Code(s): O26.892 - Other specified related conditions, second trimester; Z67.91 - Unspecified blood type, Rh negative COMMENT: NO rhogam. negative/lab scanned to her chart (4) Nausea/vomiting in : COMMENT: supportive care ordered, failed doxylamine, doing well with zofran (5) Depression: QUALIFIERS: Depression Type: other depression Qualified Code(s): F32.89 - Other specified depressive episodes COMMENT: zoloft, counseling encouraged. stable (6) Supervision of high-risk : QUALIFIERS: Trimester: third trimester Qualified Code(s): O09.93 - Supervision of high risk , unspecified, third trimester COMMENT: PRR , RICHARD 10/06/23, surprise Renato (7) : QUALIFIERS: Weeks of gestation: 28 weeks Qualified Code(s): Z3A.28 - 28 weeks gestation of COMMENT: declined genetic, ntd, & carrier testing. anatomy reviewed, normal anatomy PLAN: Plan 70-75% of baby's on the nst will show some very low amplitude spontaneous decelerations. These changes are are believed to be related with smaller amout of nikki's jelly a in the umbilical cord and great contractile force of the heart owing to the lesser degree of development of the myocardium. Her biophysical profie was reassuring and PARVEZ is 18- patient feels comfortable with this information and plans to continue kick counts at home and follow up in our office.
== END 2023-08-03 18:10 | disposition home or self-care (01) ==
LOC: WPOUT 14:57 → WP 14:58
PROVIDERS: PCP Nurse Practitioner Family; Referring Provider Registered Nurse; Visit Provider Registered Nurse
DX: O36.8330 Maternal care for abnormalities of the fetal heart rate or rhythm, third trimester, not applicable or unspecified (principal); Z3A.30 30 weeks gestation of pregnancy
CPT/HCPCS: 96360; 36415; 59025; 59050; 76819; J7120

== ENCOUNTER → 2023-08-05 | Outpatient (CLI) | payer OTHER, SELFPAY ==
[2023-08-05 12:43] LABS: Absolute Lymphocyte Count 1.84 X10^3/uL (0.83-4.51); Absolute Neutrophil Count 6.4 X10^3/uL (2.0-7.7); Basophil# 0.03 X10^3/uL; Basophil% 0.3 % (0-1); Eosinophil# 0.08 X10^3/uL; Eosinophils% 0.9 % (0-5); Hemoglobin 12.2 g/dL (12.0-15.0); Lymphocyte # 1.84 X10^3/ul (0.83-4.51); Lymphocyte % 20.6 % (19-41); Mean Corp Hgb Conc 33.9 g/dL (32-36); Mean Corpuscular Hgb 28.9 pg (27.0-32.0); Mean Corpuscular Volume 85.3 fL (81-99); Mean Platelet Vol. 9.9 fl (6.2-12.0); Monocyte# 0.52 X10^3/uL; Monocyte% 5.8 % (0-10); NRBC Flagged by Analyzer 0 % (0-5); Neutrophil # 6.43 X10^3/uL (2.7-7.7); Platelet Count 283 K/mm3 (150-450); RBC Distribution Width CV 12.9 % (11.6-14.6); RBC Distribution Width SD 39.6 fl (35.1-43.9); Red Blood Count 4.22 M/mm3 (4.2-5.4); White Blood Count 8.9 K/mm3 (4.4-11.0)
[2023-08-05 13:15] LABS: Vitamin B12 342 pg/mL (211-911)
[2023-08-05 13:34] LABS: ALB/GLOB Ratio 0.8 RATIO (0.9-2.4); AST(SGOT) 11 U/L (15-37); Alanine Aminotransfer ALT/SGPT 12 U/L (13-56); Alkaline Phosphatase 59 U/L (45-117); Anion Gap 7 (5-15); BUN 6 mg/dL (7-18); BUN/Creat Ratio 15.1 RATIO (10-20); Calcium,Total 8.8 mg/dL (8.5-10.1); Chloride 109 mmol/L (98-107); EST Glomerular Filtration Rate 194 mL/min (>60); Est Glom Filt Rate - Afr Amer 235 mL/min (>60); Globulin 3.6 g/dL (2.2-4.2); Glucose 80 mg/dL (74-106); Potassium 3.7 mmol/L (3.5-5.1); Protein, Total 6.6 g/dL (6.4-8.2); Sodium Level 137 mmol/L (136-145); Thyroid Stim Hormone (TSH) 0.83 uIU/mL (0.358-3.74)
[2023-08-10 02:07] LABS: Vitamin B1, Thiamine 89.2 nmol/L (66.5-200.0)
== END | disposition home or self-care (01) ==
LOC: LAB 11:56
PROVIDERS: PCP Nurse Practitioner Family; Referring Provider Obstetrics & Gynecology; Visit Provider Obstetrics & Gynecology
DX: R42 Dizziness and giddiness (principal)
CPT/HCPCS: 36415; 80053; 82607; 82652; 84425; 84443; 85025

== ENCOUNTER → 2023-08-24 | Outpatient (CLI) | payer OTHER, SELFPAY ==
[2023-08-24 08:40] LABS: Absolute Lymphocyte Count 2.67 X10^3/uL (0.83-4.51); Absolute Neutrophil Count 6.2 X10^3/uL (2.0-7.7); Basophil# 0.04 X10^3/uL; Basophil% 0.4 % (0-1); Eosinophil# 0.19 X10^3/uL; Hematocrit 36.5 % (37-47); Hemoglobin 12.4 g/dL (12.0-15.0); Lymphocyte # 2.67 X10^3/ul (0.83-4.51); Lymphocyte % 27.5 % (19-41); Mean Corpuscular Hgb 29.7 pg (27.0-32.0); Mean Corpuscular Volume 87.3 fL (81-99); Mean Platelet Vol. 9.8 fl (6.2-12.0); Monocyte# 0.55 X10^3/uL; Monocyte% 5.7 % (0-10); NRBC Flagged by Analyzer 0 % (0-5); Neutrophil # 6.21 X10^3/uL (2.7-7.7); Platelet Count 228 K/mm3 (150-450); RBC Distribution Width CV 13.1 % (11.6-14.6); RBC Distribution Width SD 41.2 fl (35.1-43.9); Red Blood Count 4.18 M/mm3 (4.2-5.4); White Blood Count 9.7 K/mm3 (4.4-11.0)
[2023-08-24 08:51] LABS: ALB/GLOB Ratio 0.8 RATIO (0.9-2.4); AST(SGOT) 8 U/L (15-37); Alanine Aminotransfer ALT/SGPT 14 U/L (13-56); Albumin, Serum 2.8 g/dL (3.2-5.0); Alkaline Phosphatase 67 U/L (45-117); Anion Gap 6 (5-15); BUN 5 mg/dL (7-18); Calcium,Total 8.9 mg/dL (8.5-10.1); Chloride 108 mmol/L (98-107); Creatinine, Serum 0.56 mg/dL (0.55-1.02); EST Glomerular Filtration Rate 132 mL/min (>60); Est Glom Filt Rate - Afr Amer 160 mL/min (>60); Globulin 3.5 g/dL (2.2-4.2); Glucose 85 mg/dL (74-106); Potassium 3.8 mmol/L (3.5-5.1); Protein, Total 6.3 g/dL (6.4-8.2); Sodium Level 138 mmol/L (136-145)
--- OUTSIDE RECORDS SUMMARY | 2023-08-24 09:09 | XMS RPT_ITS | CCD ---
Author Name Unknown Address [address] [place] [address] Organization [facility] Care Team Providers Care General Warehouse Associate Name Role Phone Tizzano, Mateo P Unavailable Unavailable Tizzano, Mateo P Unavailable Unavailable No Doctor Assigned, Nodr Unavailable Unavail able Tizzano, Mateo P Unavailable Unavailable Tizzano, Mateo P Unavailable Unavailable No Doctor Assigned, Nodr Unavailable Unavail able Tizzano, Mateo P Unavailable Unavailable No Doctor Assigned, Nodr Unavailable Unavail able [place], Radha D Unavailable Unavailable Mervin, Radha D Unavailable Unavailable [place], Radha D Unavailable Unavailable [place], Radha D Unavailable Unavailable [place], Radha D Unavailable Unavailable Mervin, Radha D Unavailable Unavailable [place], Radha D Unavailable Unavailable [place], Radha D Unavailable Unavailable [place], Radha D Unavailable Unavailable [place], Radha D Unavailable Unavailable [place], Radha D Unavailable Unavailable [place], Radha D Unavailable Unavailable Mervin, Radha D Unavailable Unavailable Mervin, Radha D Unavailable Unavailable [place], Radha D Unavailable Unavailable [place], Radha D Unavailable Unavailable Mervin, Radha D Unavailable Unavailable [place], Radha D Unavailable Unavailable Ezike, Duane A Unavailable Unavailable Ezike, Duane A Unavailable Unavailable [place], Radha D Unavailable Unavailable [place], Guru W Unavailable Unavailable [place], Guru W Unavailable Unavailable [place], Radha D Unavailable Unavailable Mervin, Radha D Unavailable Unavailable Mervin, Radha D Unavailable Unavailable Mervin, Radha D Unavailable Unavailable Mervin, Radha D Unavailable Unavailable [place], Radha D Unavailable Unavailable Tizzano, Mateo P [...] Unavailable Unavailable Mervin, Radha D Unavailable Unavailable GILLIAMAGGIE McginnisS VENKATA Unavailable Unavailable MERVIN, RADHA D. Unavailable Unavailable Noemi Strange CNP Primary Care Provider Noemi Strange Unavailable Unavailable Unavailable [place] Rafa Vizcarra Unavailable Free, Text Entry Unavailable Unavailable Noemi Strange L Unavailable Rafa Glez Unavailable Unavailable Bryce Jaquez Unavailable Unavailable NOEMI STRANGE L Primary Care Unavailable SUBHASH CHAPIN Attending Unavailable MAYRA GOTTLIEB Referring UnavailNOEMI Troncoso Primary Care Unavailable GRAY, LOUIE F Attending Unavailable LADARIUS, SIMÓN S Referring Unavailable ALIE NOEMI L Primary Care Unavailable GRAY, LOUIE F Attending Unavailable LADARIUS, SIMÓN S Referring Unavailable ALIE NOEMI L Primary Care Unavailable DESTINY VACA Attending Unavailable ALIE NOEMI L Referring Unavailable Allergies Allergy Classification Reported Allergen(s) Allergy Type Date of Onset Reaction(s) Facility Opioid Agonists (7 sources) Codeine; Translations: [codeine] Drug Allergy 1 Nausea and Vomiting [facility] Sulfonamides (antibiotic) (4 sources) Sulfonamides (Antibiotic); Translations: [Sulfa Drugs] Drug Allergy Unknown [facility] Work Phone: (9 sources) codeine; Translations: [codeine] Drug Allergy 4 AOF, Vomiting [facility] Repository (9 sources) Sulfonamides (Antibiotic); Translations: [sulfa drugs] Propensity to adverse reactions to drug (disorder) AOF, Unknown [facility]ository Medications Current Medications Medication Drug Class(es) [...] 400 mg oral tablet (3 sources) Uncompetitive B-crheoi-E-aspartat e Receptor Antagonist, Sigma-1 Agonist Start: 11-26-2021 [...] Gema Lipscomb Start : 26-Jul-2020 Active levonorgestrel 0.630986 mg/hr intrauterine system (6 sources) Progestin, Progestin-containin [...] 08-04-2022 09:50-0500 Body height 170.18 cm Rafa Zackery Glez Work Phone: [facility] Work Phone: 08-04-2022 09:50-0500 Body mass index (BMI) [Ratio] 33.12 kg/m2 Rafa Glez Work Phone: [facility] Work Phone: 08-04-2022 09:50-0500 Body surface area Derived from formula 2.07 m2 Rafa Glez Work Phone: [facility] Work Phone: 08-04-2022 09:50-0500 Body weight 95.91 kg Rafa Glez Work Phone: [facility] Work Phone: 08-04-2022 09:50-0500 Diastolic blood pressure 80 mm[Hg] Rafa Glez Work Phone: [facility] Work Phone: 08-04-2022 09:50-0500 Heart rate 95 /min Rafa Glez Work Phone: [facility] Work Phone: 08-04-2022 09:50-0500 Systolic blood pressure 126 mm[Hg] Rafa Glez Work Phone: [facility] Work Phone: 08-01-2022 19:00-0500 Diastolic blood pressure 95 mm[Hg] Text Entry [facility] 08-01-2022 19:00-0500 Heart rate 84 /min Text Entry [facility] 08-01-2022 19:00-0500 Respiratory rate 18 /min Text Entry [facility] 08-01-2022 19:00-0500 SaO2% (BldA) [Mass fraction] 97 % Text Entry [facility] 08-01-2022 19:00-0500 Systolic blood pressure 120 mm[Hg] Text Entry [facility] 08-01-2022 15:43-0500 Body height 172.7 cm Text Entry [facility] 08-01-2022 15:43-0500 Body temperature 97.7 [degF] Text Entry [facility] 08-01-2022 15:43-0500 Body weight 95.5 kg Text Entry [facility] 01-20-2022 08:38-0400 Body height 170.18 cm Rafa Glez Work Phone: [facility] Work Phone: 01-20-2022 08:38-0400 Body mass index (BMI) [Ratio] 33.21 kg/m2 Rafa Egand Work Phone: [facility] Work Phone: 01-20-2022 08:38-0400 Body surface area Derived from formula 2.07 m2 Rafa Vizcarra [place] Work Phone: [facility] Work Phone: 01-20-2022 08:38-0400 Body weight 96.19 kg Rafa Vizcarra [place] Work Phone: [facility] Work Phone: 01-20-2022 08:38-0400 Diastolic blood pressure 84 mm[Hg] Rafa Vizcarra [place] Work Phone: [facility] Work Phone: 01-20-2022 08:38-0400 Heart rate 79 /min Rafa Vizcarra [place] Work Phone: [facility] Work Phone: 01-20-2022 08:38-0400 Systolic blood pressure 130 mm[Hg] Rafa Vizcarra [place] Work Phone: [facility] Work Phone: 11-26-2021 09:42-0400 Body height 170.18 cm Rafa Vizcarra [place] Work Phone: [facility] Work Phone: 11-26-2021 09:42-0400 Body mass index (BMI) [Ratio] 33.07 kg/m2 Rafa Vizcarra [place] Work Phone: [facility] Work Phone: 11-26-2021 09:42-0400 Body surface area Derived from formula 2.07 m2 Rafa Vizcarra [place] Work Phone: [facility] Work Phone: 11-26-2021 09:42-0400 Body weight 95.77 kg Rafa Vizcarra [place] Work Phone: [facility] Work Phone: 11-26-2021 09:42-0400 Diastolic blood pressure 76 mm[Hg] Rafa L [place] Work Phone: [facility] Work Phone: 11-26-2021 09:42-0400 Systolic blood pressure 126 mm[Hg] Rafa Glez Work Phone: [facility] Work Phone: 06-17-2021 11:02-0500 Body height 170.18 cm Noemi L Alie Work Phone: [address] Work Phone: 06-17-2021 11:02-0500 Body mass index (BMI) [Ratio] 32.49 kg/m2 Noemi L Alie Work Phone: [address] Work Phone: 06-17-2021 11:02-0500 Body surface area Derived from formula 2.05 m2 Noemi L Alie Work Phone: [address] Work Phone: 06-17-2021 11:02-0500 Body temperature 97.1 [degF] Noemi L Alie Work Phone: [address] Work Phone: 06-17-2021 11:02-0500 Body weight 94.1 kg Noemi L Alie Work Phone: [address] Work Phone: 06-17-2021 11:02-0500 Diastolic blood pressure 80 mm[Hg] Noemi L Alie Work Phone: [address] Work Phone: 06-17-2021 11:02-0500 Systolic blood pressure 120 mm[Hg] Noemi L Alie Work Phone: [address] Work Phone: 04-23-2021 09:54-0400 Body height 170.18 cm Noemi L Alie Work Phone: [address] Work Phone: 04-23-2021 09:54-0400 Body mass index (BMI) [Ratio] 32.56 kg/m2 Noemi Strange Work Phone: [address] Work Phone: 04-23-2021 09:54-0400 Body surface area Derived from formula 2.06 m2 Noemi Strange Work Phone: [address] Work Phone: 04-23-2021 09:54-0400 Body temperature 98.2 [degF] Noemi Strange Work Phone: [address] Work Phone: 04-23-2021 09:54-0400 Body weight 94.3 kg Noemi Strange Work Phone: [address] Work Phone: 04-23-2021 09:54-0400 Diastolic blood pressure 78 mm[Hg] Noemi Strange Work Phone: [address] Work Phone: 04-23-2021 09:54-0400 Systolic blood pressure 118 mm[Hg] Noemi Strange Work Phone: [address] Work Phone: 02-15-2021 15:26-0400 Body height 170.18 cm Noemi Strange Work Phone: [facility] Work Phone: 02-15-2021 15:26-0400 Body mass index (BMI) [Ratio] 32.89 kg/m2 Noemi Strange Work Phone: [facility] Work Phone: 02-15-2021 15:26-0400 Body surface area Derived from formula 2.06 m2 Noemi Strange Work Phone: [facility] Work Phone: 02-15-2021 15:26-0400 Body weight 95.26 kg Noemi L Alie Work Phone: [facility] Work Phone: 02-15-2021 15:26-0400 Diastolic blood pressure 80 mm[Hg] Noemi L Alie Work Phone: [facility] Work Phone: 02-15-2021 15:26-0400 Heart rate 72 /min Noemi Strange Work Phone: [facility] Work Phone: 02-15-2021 15:26-0400 Systolic blood pressure 122 mm[Hg] Noemi L Alie Work Phone: [facility] Work Phone: 01-18-2021 10:08-0400 Body height 170.18 cm Noemi Strange Work Phone: [facility] Work Phone: 01-18-2021 10:08-0400 Body mass index (BMI) [Ratio] 32.65 kg/m2 Noemi Strange Work Phone: [facility] Work Phone: 01-18-2021 10:08-0400 Body surface area Derived from formula 2.06 m2 Noemi Strange Work Phone: [facility] Work Phone: 01-18-2021 10:08-0400 Body weight 94.55 kg Noemi L Alie Work Phone: [facility] Work Phone: 01-18-2021 10:08-0400 Diastolic blood pressure 80 mm[Hg] Noemi L Alie Work Phone: [facility] Work Phone: 01-18-2021 10:08-0400 Heart rate 76 /min Noemi Strange Work Phone: [facility] Work Phone: 01-18-2021 10:08-0400 Systolic blood pressure 118 mm[Hg] Noemi Strange Work Phone: [facility] Work Phone: 12-18-2020 09:24-0400 Body height 172.7 cm Erma Raedy DO Work Phone: [facility] 12-18-2020 09:24-0400 Body mass index (BMI) [Ratio] 31.6 kg/m2 Erma Raedy DO Work Phone: [facility] 12-18-2020 09:24-0400 Body temperature 98.29 [degF] Erma Raedy DO Work Phone: [facility] 12-18-2020 09:24-0400 Body weight 94.26 kg Erma Raedy DO Work Phone: [facility] 12-18-2020 09:24-0400 Diastolic blood pressure 90 mm[Hg] Erma Raedy DO Work Phone: [facility] 12-18-2020 09:24-0400 Heart rate 75 /min Erma Raedy DO Work Phone: [facility] 12-18-2020 09:24-0400 Respiratory rate 16 /min Erma Raedy DO Work Phone: [facility] 12-18-2020 09:24-0400 SaO2% (BldA) [Mass fraction] 98 % Erma Raedy DO Work Phone: [facility] 12-18-2020 09:24-0400 Systolic blood pressure 135 mm[Hg] Erma Raedy DO Work Phone: [facility] 11-02-2020 09:47-0400 Body height 172.7 cm Erma Raedy DO Work Phone: [facility] 11-02-2020 09:47-0400 Body mass index (BMI) [Ratio] 31.79 kg/m2 Erma Raedy DO Work Phone: [facility] 11-02-2020 09:47-0400 Body temperature 98.6 [degF] Erma Raedy DO Work Phone: [facility] 11-02-2020 09:47-0400 Body weight 94.85 kg Erma Raedy DO Work Phone: [facility] 11-02-2020 09:47-0400 Diastolic blood pressure 90 mm[Hg] Erma Raedy DO Work Phone: [facility] 11-02-2020 09:47-0400 Heart rate 86 /min Erma Raedy DO Work Phone: [facility] 11-02-2020 09:47-0400 Respiratory rate 16 /min Erma Raedy DO Work Phone: [facility] 11-02-2020 09:47-0400 SaO2% (BldA) [Mass fraction] 100 % Erma Raedy DO Work Phone: [facility] 11-02-2020 09:47-0400 Systolic blood pressure 135 mm[Hg] Erma Raedy DO Work Phone: [facility] Encounters Encounter Date Encounter Type Care Provider Facility Start: 08-06-2023 End: 08-06-[address] [facility] Start: 07-14-2023 End: 07-14-[address] [facility] Start: 06-08-2023 End: 06-08-[address] [facility] Start: 05-11-2023 End: 05-11-[address] [facility] Start: 08-04-2022 Office outpatient vi sit 15 minutes Rafa Glez Work Phone: [facility] Work Phone: Start: 08-01-2022 End: 08-01-2022 Emergency department patient visit Bryce Jaquez [facility] Emergency 04 Start: 01-20-2022 Office outpatient vi sit 15 minutes Rafa Glez Work Phone: [facility] Work Phone: Start: 11-27-2021 Chart Update Rafa Glez Work Phone: [facility] Work Phone: Start: 11-26-2021 Office outpatient vi sit 15 minutes Rafa Glez Work Phone: [employer] Work Phone: Start: 06-17-2021 Patient encounter procedure Noemi Strange Work Phone: [facility] Work Phone: Start: 05-25-2021 Chart Update Noemi Strange Work Phone: [facility] Work Phone: Start: 04-23-2021 Periodic preventive med est patient 18-39 yrs Noemi Strange Work Phone: [facility] Work Phone: Start: 02-15-2021 Office outpatient vi sit 10 minutes Noemi Strange Work Phone: [employer] Work Phone: Start: 01-18-2021 Office outpatient vi sit 15 minutes Noemi Strange Work Phone: [employer] Work Phone: Start: 12-18-2020 End: 12-18-2020 Office outpatient visit 15 minutes Erma Haskins DO Work Phone: [facility] Procedures Date Procedure Procedure Detail Performing Clinician Start: 08-01-2022 End: 08-01-2022 EKG impression Bryce Jaquez Insertion of intraut erine contraceptive device Noemi Strange Work Phone: Plan of Treatment Date Care Activity Detail Author Start: 01-26-2023 EPV, Provider: Rafa Glez, Status: Pen, Time: 8:15 AM EPV, Provider: Rafa Glez, Status: Pen, Time: 8:15 AM [facility] Work Phone: Start: 01-26-2023 Patient encounter procedure [facility] Start: 01-20-2022 EPV, Provider: Rafa Glez, Status: Pen, Time: 8:45 AM EPV, Provider: Rafa Glez, Status: Pen, Time: 8:45 AM [facility] Work Phone: Start: 01-20-2022 EPV, Provider: Gema Ponce, Status: Pen, Time: 8:30 AM EPV, Provider: Gema Ponce, Status: Pen, Time: 8:30 AM [facility] Work Phone: Start: 06-17-2021 IUDRMVL, Provider: Richardson Guo, Status: Pen, Time: 11:00 AM [facility], Provider: Richardson Guo, Status: Pen, Time: 11:[address] Work Phone: Start: 04-23-2021 Patient encounter procedure ANNUAL, Provider: Richardson Guo, Status: Pen, Time: 9:45 AM [facility] Work Phone: Start: 04-19-2021 End: 04-19-2021 Patient encounter procedure 04/19/2021 Office Visit Neurology Erma Haskins F, DO [address] [place] [address] [phone] [facility] Start: 03-13-2021 Influenza vaccination INFLUENZ A VACCINE (Season Ended) [facility] Start: 12-18-2020 End: 12-18-2020 Patient encounter procedure 12/18/2020 Office Visit Neurology Jozef Erma F, DO [address] [id number] [facility] [place] Start: 2009 Screening for malign ant neoplasm of cervix CERVICAL CANCER SCREENING DISCUSSION [facility] Start: 10-22-2007 Third diphtheria, te tanus and acellular pertussis (DTaP) vaccination TDAP (ADULT) [facility] Start: 2006 Tetanus vaccination TETANUS [facility] Start: 2004 COVID-19 VACCINE (1) COVID-19 VACCIN E (1) [facility] Start: 10-22-2003 HIV screening HIV SCREENING DISCUSSION [facility] Start: 2001 HIV screening HIV SCREENING DISCUSSION [facility] Start: 1988 Hepatitis C antibody , confirmatory test HEPATITIS C VIRUS SCREENING [facility] Immunizations Immunization Date Immunization Notes Care Provider Fa cili 10-26-2020 Pfizer-BioNTech COVI D-19 Vacc 30 MCG/0.3ML Intramuscular Suspension Noemi Strange Work Phone: [facility] Work Phone: 09-27-2020 Pfizer-BioNTech COVI D-19 Vacc 30 MCG/0.3ML Intramuscular Suspension Noemi Strange Work Phone: [facility] Work Phone: Payers Date Payer Category Payer Private Health Insurance NALLELY DEL ROSARIO [id number] 2020-Present [id number] 2017 Private Health Insurance [id number] 2017 Private Health Insurance 1988 Unknown [id number] 1988 Unknown [id number] 1988 Unknown [id number] 1988 Unknown [id number] Unknown Unknown [id number] Social History Date Type Detail Facility Tobacco smoking stat [facility] Unknown if ever smoked [facility] Start: 1988 Sex Assigned At Not on file [employer] Exposure to SARS-CoV -2 (event) Not sure [facility] End: 04-23-2021 Never smoker Never smoker [facility] Work Phone: Goals Date Patient Goal Desired Activity /State Clinical Notes 09-13-2009 to 08-06-2023 Erma Haskins, DO - 12/18/2020 9:40 AM EDTPatient InstructionsErma Haskins, DO - 11/02/2020 10:00 AM EDTPatient Instructions Note Date & Type Note Facility 08-06-2023 Note Anahy Shipley is a new patient who's primary care provider is Noemi Strange APRN-CNP here for evaluation of heart. Chief Complaint Patient presents with ECHO echo History of Presenting Problem HPI Thank you for consulting us regarding Anahy Shipley. She is referred to the cardiology clinic at [facility] for evaluation of the heart. I saw this patient in the echocardiogram clinic on 08/06/2023. Patient was referred to the echocardiographic clinic for a echocardiogram since there was a question/suspicion of arrhythmia on OB exam. Cardiac ROS Review of Systems See the full note Past Medical History History reviewed. No pertinent past medical history. Past Surgical History: Procedure Laterality Date TONSILLECTOMY TYMPANOSTOMY TUBE PLACEMENT Medications: Outpatient Encounter Medications as of 08/06/2023 Medication Sig Dispense Refill aspirin EC (ECOTRIN LOW STRENGTH) 81 MG EC tablet Take by mouth daily ondansetron in NaCl 0.9% IV Infuse intravenously sertraline (ZOLOFT) 50 MG tablet Take by mouth daily No facility-administered encounter medications on file as of 08/06/2023. Allergies: Allergies Allergen Reactions Codeine Nausea And Vomiting Family Medical History: History reviewed. No pertinent family history. Social History: Social History Socioeconomic History Marital status: Spouse name: None Number of children: None Years of education: None Highest education level: None Tobacco Use Smoking status: Never Smokeless tobacco: Never Substance and Sexual Activity Alcohol use: Never Drug use: Never Physical Exam: Vitals: 08/06/23 1345 BP: 134/67 Growth %ile SmartLinks can only be used for patients less than 20 years old. Weight - Scale: (!) 98.4 kg Facility age limit for growth %mary is 20 years. Height: 172.7 cm Facility age limit for growth %mary is 20 years. Physical Exam Patient is here for the echocardiogram. Physical exam was deferred. Studies: echocardiogram: Position; Vertex. 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 Atrioventricular and ventriculoarterial concordance seen. Atria: Normal left and right atrial size. There was a large patent foramen ovale with [id number] shunt. Tricuspid valve: There was normal tricuspid valve. There was normal Doppler across the tricuspid valve. Mitral valve: Normal mitral valve. There was normal Doppler across the mitral valve. Right ventricle: There was normal size and systolic function. Left ventricle: There was normal size and systolic function. Aortic valve: Normal aortic valve. There was normal Doppler across the aortic valve seen. Pulmonary valve: Normal pulmonary valve. There was normal Doppler across the pulmonary valve seen. Ventricular septum: There was no obvious ventricular septal defect seen. Main pulmonary artery: Normal main pulmonary artery. Pulmonary arteries: Good size branch pulmonary arteries. Pulmonary veins: There were at least 2/4 pulmonary veins seen entering into the left atrium. Systemic venous return: There was normal systemic venous return seen. Aortic arch: Aortic arch was not well seen, however normal 3-vessel view. Ductal arch: Patent Ductal arch. 3-vessel view: There was normal 3-vessel view. Ductus venosus: There was normal flow pattern seen in the ductus venosus. Umbilical artery and umbilical vein. There was normal pulse Doppler in umbilical artery and umbilical vein. Rhythm: There was sinus rhythm. There was no arrhythmia noted. M-mode could not be obtained in this study. Impression and recommendations. 1)Technically difficult study due to limited acoustic windows, movements and maternal body habitus. 2) Aortic arch was not well seen, however normal 3-vessel view. Otherwise normal echocardiogram. There was no arrhythmia noted. 3) I have discussed the limitations of echocardiographic examination, that is likely to miss small ventricular septal defects as well as mild semilunar valve stenosis. Patent foramen ovale and patent ductus arteriosus are normal findings in utero. Coarctation of aorta is difficult to diagnose pre natally in the presence of patent ductus arteriosus. 4) I have also discussed echocardiographic findings in detail including circulation, pathophysiology of Patent foramen ovale and patent ductus arteriosus, prognosis, medical and surgical treatments, follow up echocardiograms and follow ups. 5) I would like to see in cardiology clinic here at [facility], 1-2 months after the or earlier if cardiac condition/status changes in any way. Counseling and/or coordination of care was greater than 35 minutes which is more than 50% of the total time of 60 minutes spent on the enco (more content not included)... [facility] 08-01-2022 History of Present illness Narrative Anahy [...] and blood cultures. All tests were normal. -[facility] Work Phone: 11-23-2021 History of [...] she has been around anyone with COVID [facility] Work Phone: 04-23-2021 Note 32 Date of Procedure: 04/23/2021 Pathologist: [facility], Cytology Date Reported: 05/01/2021 Date Received: 04/24/2021 Submitting Physician: RICHARDSON GUO, DO FINAL CYTOLOGICAL INTERPRETATION A. THINPREP PAP [...] verified by the Molecular Diagnostic Laboratory at [facility]. The lab is certified under the Clinical Laboratory Amendments of 1988 (CLIA 88) as qualified to perform high complexity clinical laboratory testing. This specimen has been analyzed by the [email or web address] Imaging System ([employer] an automated imaging and review system, which assists the laboratory in evaluating cells on ThinPrep Pap tests. Following automated imaging, selected leonard from every slide were reviewed by a exercise equipment repair technician and/or pathologist. Electronically Signed Out By [facility], Cytology//ELC By the signature on this report, [...] Source of Specimen A: THINPREP PAP CERVICAL [facility] Department of Pathology [id number] [place] [address] documented [facility] this [facility] Diagnosis Temporomandibular disorder- Primary Temporomandibular joint disorders, unspecified Occipital neuralgia of right side Intractable migraine with aura with status migrainosus Migraine with aura, with intractable migraine, so stated, with status migrainosus documented in this [facility] [id number] y.o. female presents for possible Lyme disease. She was at a rastafarian outing where several youths found a tick on their body. She denies seeing a tick on her person. She has a bruise on her left thigh that resembles a bullseye appearance described in Lyme disease so she is concerned. She denies feeling ill.[facility] Work Phone: History of Present illness [id number] G0 presents for annual exam. Patient safe [...] started vitamins. Patient is no acute concerns [address] Work Phone: History of Present illness [id number] presents for IUD removal. Considering fertility in the near future. Been taking vitamins. Patient has no acute concern[address] Work Phone: History of Present illness Narrative* [...] uses no contraception. she is sexually active. [facility] [place]. * History: 0. * Cervical cancer [...] weight loss. 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 * denies any SI or HI. * No other health concerns [facility] Work Phone: Summary Purpose Family History [...] Diagnoses Temporomandibular disorder Erma Haskins, DO [address] [place] [address] [facility] [address] [place] [address] Scheduling Instructions . Status Reason Specialty Diagnoses / Procedures Referred By Contact Referred To Contact New Request Physical Therapy Diagnoses Temporomandibular disorder Occipital neuralgia of right side Erma Haskins, DO [address] [place] [address] [facility] [address] [place] [address] Chief Complaint 3 month med check.3 month [...] DATE CREATED AUTHOR AUTHOR'S ORGANIZ ATION 12/31/2017 [facility] DATE CREATED AUTHOR AUTHOR'S ORGANIZ ATION 11/29/2021 [facility] DATE CREATED AUTHOR AUTHOR'S ORGANIZ ATION 01/20/2022 [facility] DATE CREATED AUTHOR AUTHOR'S ORGANIZ ATION 01/20/2022 [facility] DATE CREATED AUTHOR AUTHOR'S ORGANIZ ATION 08/08/[address] [facility] Reason for Visit (unrecogniz ed section and [...] BE BASED ON THE PRIMARY CLINICAL RECORDS. [employer] [facility]. provides no warranty or guarantee of the accuracy or completeness of information in this document.
== END | disposition home or self-care (01) ==
PROVIDERS: PCP Nurse Practitioner Family; Referring Provider Nurse Practitioner Women's Health; Visit Provider Nurse Practitioner Women's Health
DX: R42 Dizziness and giddiness (principal); Z13.1 Encounter for screening for diabetes mellitus
CPT/HCPCS: 36415; 80053; 85025

== ENCOUNTER → 2023-09-08 | Outpatient (CLI) | payer OTHER, SELFPAY ==
[2023-09-08 19:01] LABS: Group B Strep DNA By PCR Negative (Negative); Internal Control PASS; Probe Check PASS; Specimen Processing Control PASS
== END | disposition home or self-care (01) ==
LOC: LABSPEC 16:23
PROVIDERS: PCP Nurse Practitioner Family; Referring Provider Advanced Practice Midwife; Visit Provider Advanced Practice Midwife
DX: Z34.90 Encounter for supervision of normal pregnancy, unspecified, unspecified trimester (principal)
CPT/HCPCS: 87081; 87653

== ENCOUNTER → 2023-09-14 | Outpatient (CLI) | payer OTHER, SELFPAY ==
[2023-09-14 15:01] LABS: ROM Internal Control Test YES-OK TO RESULT pt. (Internal QC); ROM Patient Test Negative (Negative)
[2023-09-14 15:19] LABS: Absolute Lymphocyte Count 2.09 X10^3/uL (0.83-4.51); Absolute Neutrophil Count 6.3 X10^3/uL (2.0-7.7); Basophil# 0.03 X10^3/uL; Basophil% 0.3 % (0-1); Eosinophil# 0.11 X10^3/uL; Eosinophils% 1.2 % (0-5); Hematocrit 36.6 % (37-47); Lymphocyte # 2.09 X10^3/ul (0.83-4.51); Mean Corp Hgb Conc 32.8 g/dL (32-36); Mean Corpuscular Hgb 28.1 pg (27.0-32.0); Mean Corpuscular Volume 85.7 fL (81-99); Mean Platelet Vol. 10.1 fl (6.2-12.0); Monocyte# 0.54 X10^3/uL; Monocyte% 5.9 % (0-10); NRBC Flagged by Analyzer 0 % (0-5); Neutrophil # 6.28 X10^3/uL (2.7-7.7); Neutrophil % 69.2 % (47-70); Platelet Count 240 K/mm3 (150-450); RBC Distribution Width CV 13.1 % (11.6-14.6); RBC Distribution Width SD 40.1 fl (35.1-43.9); Red Blood Count 4.27 M/mm3 (4.2-5.4); White Blood Count 9.1 K/mm3 (4.4-11.0)
[2023-09-14 15:55] LABS: ALB/GLOB Ratio 0.8 RATIO (0.9-2.4); AST(SGOT) 14 U/L (15-37); Alanine Aminotransfer ALT/SGPT 10 U/L (13-56); Albumin, Serum 2.9 g/dL (3.2-5.0); Alkaline Phosphatase 88 U/L (45-117); Anion Gap 8 (5-15); BUN 5 mg/dL (7-18); BUN/Creat Ratio 8.1 RATIO (10-20); Calcium,Total 8.9 mg/dL (8.5-10.1); Chloride 108 mmol/L (98-107); Creatinine, Serum 0.62 mg/dL (0.55-1.02); EST Glomerular Filtration Rate 117 mL/min (>60); Est Glom Filt Rate - Afr Amer 142 mL/min (>60); Globulin 3.5 g/dL (2.2-4.2); Glucose 114 mg/dL (74-106); Potassium 3.7 mmol/L (3.5-5.1); Protein, Total 6.4 g/dL (6.4-8.2); Sodium Level 138 mmol/L (136-145); Uric Acid 3.8 mg/dL (2.6-6.0)
[2023-09-14 16:02] LABS: Protein, Urine (Random) < 6.0 mg/dL (<11.9)
--- OUTSIDE RECORDS SUMMARY | 2023-09-14 16:50 | XMS RPT_ITS | CCD ---
Author Name Unknown Address [address] [place] [address] Organization [facility] Care Team Providers Care Law Examiner Name Role Phone Tizzano, Mateo P Unavailable Unavailable Tizzano, Mateo P Unavailable Unavailable No Doctor Assigned, Nodr Unavailable Unavail able Tizzano, Mateo P Unavailable Unavailable Tizzano, Mateo P Unavailable Unavailable No Doctor Assigned, Nodr Unavailable Unavail able Tizzano, Mateo P Unavailable Unavailable No Doctor Assigned, Nodr Unavailable Unavail able Floyd, Radha D Unavailable Unavailable Mervin, Radha D Unavailable Unavailable Mervin, Radha D Unavailable Unavailable Mervin, Radha D Unavailable Unavailable Mervin, Radha D Unavailable Unavailable Floyd, Radha D Unavailable Unavailable Floyd, Radha D Unavailable Unavailable Floyd, Radha D Unavailable Unavailable Mervin, Radha D Unavailable Unavailable Floyd, Radha D Unavailable Unavailable Floyd, Radha D Unavailable Unavailable Floyd, Radha D Unavailable Unavailable Floyd, Radha D Unavailable Unavailable Floyd, Radha D Unavailable Unavailable Mervin, Radha D Unavailable Unavailable Mervin, Radha D Unavailable Unavailable Mervin, Radha D Unavailable Unavailable Mervin, Radha D Unavailable Unavailable Ezike, Duane A Unavailable Unavailable Ezike, Duane A Unavailable Unavailable Floyd, Radha D Unavailable Unavailable Shakir, Guru W Unavailable Unavailable Maramec, Guru W Unavailable Unavailable Floyd, Radha D Unavailable Unavailable Mervin, Radha D Unavailable Unavailable Mervin, Radha D Unavailable Unavailable Mervin, Radha D Unavailable Unavailable Floyd, Radha D Unavailable Unavailable Floyd, Radha D Unavailable Unavailable Tizzano, Mateo P Unavailable Unavailable Floyd, Radha D Unavailable Unavailable Tizzano, Mateo P Unavailable Unavailable Tizzano, Mateo P Unavailable Unavailable Floyd, Radha D Unavailable Unavailable Tizzano, Mateo P Unavailable Unavailable Mervin, Radha D Unavailable Unavailable Tizzano, Mateo P Unavailable Unavailable Mervin, Radha D Unavailable Unavailable Tizzano, Mateo P Unavailable Unavailable Floyd, Radha D Unavailable Unavailable Tizzano, Mateo P Unavailable Unavailable Floyd, Radha D Unavailable Unavailable GILLIAMAGGIE McginnisS VENKATA [...] [codeine] Drug Allergy 1 Nausea and Vomiting [facility] Sulfonamides (antibiotic) (4 sources) Sulfonamides (Antibiotic); Translations: [Sulfa Drugs] Drug Allergy Unknown [facility] Work Phone: (9 sources) codeine; Translations: [codeine] Drug Allergy 4 AOF, Vomiting [facility] Repository (9 sources) Sulfonamides (Antibiotic); Translations: [sulfa drugs] Propensity to adverse reactions to drug (disorder) AOF, Unknown [facility] Repository Medications Current Medications Medication Drug [...] 400 mg oral tablet (3 sources) Uncompetitive P-exwvzw-X-aspartat e Receptor Antagonist, Sigma-1 Agonist Start: 11-26-2021 [...] Gema Lipscomb Start : 26-Jul-2020 Active levonorgestrel 0.575117 mg/hr intrauterine system (6 sources) Progestin, Progestin-containin [...] 170.18 cm Rafa Zackery Glez Work Phone: [facility] Work Phone: 08-04-2022 09:50-0500 Body mass index (BMI) [Ratio] 33.12 kg/m2 Rafa Glez Work Phone: [facility] Work Phone: 08-04-2022 09:50-0500 Body surface area Derived from formula 2.07 m2 Rafa Glez Work Phone: [facility] Work Phone: 08-04-2022 09:50-0500 Body weight 95.91 kg Rafa Glez Work Phone: [facility] Work Phone: 08-04-2022 09:50-0500 Diastolic blood pressure 80 mm[Hg] Rafa Glez Work Phone: [facility] Work Phone: 08-04-2022 09:50-0500 Heart rate 95 /min Rafa Glez Work Phone: [facility] Work Phone: 08-04-2022 09:50-0500 Systolic blood pressure 126 mm[Hg] Rafa Glez Work Phone: [facility] Work Phone: 08-01-2022 19:00-0500 Diastolic blood pressure 95 mm[Hg] Text Entry [facility] 08-01-2022 19:00-0500 Heart rate 84 /min Text Entry [facility] 08-01-2022 19:00-0500 Respiratory rate 18 /min Text Entry [facility] 08-01-2022 19:00-0500 SaO2% (BldA) [Mass fraction] 97 % Text Entry [facility] 08-01-2022 19:00-0500 Systolic blood pressure 120 mm[Hg] Text Entry [facility] 08-01-2022 15:43-0500 Body height 172.7 cm Text Entry [facility] 08-01-2022 15:43-0500 Body temperature 97.7 [degF] Text Entry [facility] 08-01-2022 15:43-0500 Body weight 95.5 kg Text Entry [facility] 01-20-2022 08:38-0400 Body height 170.18 cm Rafa Glez Work Phone: [facility] Work Phone: 01-20-2022 08:38-0400 Body mass index (BMI) [Ratio] 33.21 kg/m2 Rafa Egand Work Phone: [facility] Work Phone: 01-20-2022 08:38-0400 Body surface area Derived from formula 2.07 m2 Rafa Vizcarra Newton Work Phone: [facility] Work Phone: 01-20-2022 08:38-0400 Body weight 96.19 kg Rafa Vizcarra Merced Work Phone: [facility] Work Phone: 01-20-2022 08:38-0400 Diastolic blood pressure 84 mm[Hg] Rafa Vizcarra Newton Work Phone: [facility] Work Phone: 01-20-2022 08:38-0400 Heart rate 79 /min Rafa Vizcarra Merced Work Phone: [facility] Work Phone: 01-20-2022 08:38-0400 Systolic blood pressure 130 mm[Hg] Rafa Vizcarra Newton Work Phone: [facility] Work Phone: 11-26-2021 09:42-0400 Body height 170.18 cm Rafa Vizcarra Merced Work Phone: [facility] Work Phone: 11-26-2021 09:42-0400 Body mass index (BMI) [Ratio] 33.07 kg/m2 Rafa Vizcarra Newton Work Phone: [facility] Work Phone: 11-26-2021 09:42-0400 Body surface area Derived from formula 2.07 m2 Rafa Vizcarra Merced Work Phone: [facility] Work Phone: 11-26-2021 09:42-0400 Body weight 95.77 kg Rafa Vizcarra Newton Work Phone: [facility] Work Phone: 11-26-2021 09:42-0400 Diastolic blood pressure 76 mm[Hg] Rafa L Newton Work Phone: [facility] Work Phone: 11-26-2021 09:42-0400 Systolic blood pressure 126 mm[Hg] Rafa Glez Work Phone: [facility] Work Phone: 06-17-2021 11:02-0500 Body height 170.18 cm Noemi L Alie Work Phone: [address] Work Phone: 06-17-2021 11:02-0500 Body mass index (BMI) [Ratio] 32.49 kg/m2 Noemi L Alie Work Phone: [address] Work Phone: 06-17-2021 11:02-0500 Body surface area Derived from formula 2.05 m2 Noemi L Alie Work Phone: [address] Work Phone: 06-17-2021 11:02-0500 Body temperature 97.1 [degF] Noemi L Alie Work Phone: [address] Work Phone: 06-17-2021 11:02-0500 Body weight 94.1 kg Noemi L Alie Work Phone: [address] Work Phone: 06-17-2021 11:02-0500 Diastolic blood pressure 80 mm[Hg] Noemi L Alie Work Phone: [address] Work Phone: 06-17-2021 11:02-0500 Systolic blood pressure 120 mm[Hg] Noemi L Alie Work Phone: [address] Work Phone: 04-23-2021 09:54-0400 Body height 170.18 cm Noemi L Alie Work Phone: [address] Work Phone: 04-23-2021 09:54-0400 Body mass index (BMI) [Ratio] 32.56 kg/m2 Noemi Strange Work Phone: [address] Work Phone: 04-23-2021 09:54-0400 Body surface area Derived from formula 2.06 m2 Noemi Strange Work Phone: [address] Work Phone: 04-23-2021 09:54-0400 Body temperature 98.2 [degF] Noemi Strange Work Phone: [address] Work Phone: 04-23-2021 09:54-0400 Body weight 94.3 kg Noemi Strange Work Phone: [address] Work Phone: 04-23-2021 09:54-0400 Diastolic blood pressure 78 mm[Hg] Noemi Strange Work Phone: [address] Work Phone: 04-23-2021 09:54-0400 Systolic blood pressure 118 mm[Hg] Noemi Strange Work Phone: [address] Work Phone: 02-15-2021 15:26-0400 Body height 170.18 cm Noemi Strange Work Phone: [facility] Work Phone: 02-15-2021 15:26-0400 Body mass index (BMI) [Ratio] 32.89 kg/m2 Noemi Strange Work Phone: [facility] Work Phone: 02-15-2021 15:26-0400 Body surface area Derived from formula 2.06 m2 Noemi Strange Work Phone: [facility] Work Phone: 02-15-2021 15:26-0400 Body weight 95.26 kg Noemi L Alie Work Phone: [facility] Work Phone: 02-15-2021 15:26-0400 Diastolic blood pressure 80 mm[Hg] Noemi L Alie Work Phone: [facility] Work Phone: 02-15-2021 15:26-0400 Heart rate 72 /min Noemi Strange Work Phone: [facility] Work Phone: 02-15-2021 15:26-0400 Systolic blood pressure 122 mm[Hg] Noemi L Alie Work Phone: [facility] Work Phone: 01-18-2021 10:08-0400 Body height 170.18 cm Noemi Strange Work Phone: [facility] Work Phone: 01-18-2021 10:08-0400 Body mass index (BMI) [Ratio] 32.65 kg/m2 Noemi Strange Work Phone: [facility] Work Phone: 01-18-2021 10:08-0400 Body surface area Derived from formula 2.06 m2 Noemi Strange Work Phone: [facility] Work Phone: 01-18-2021 10:08-0400 Body weight 94.55 kg Noemi L Alie Work Phone: [facility] Work Phone: 01-18-2021 10:08-0400 Diastolic blood pressure 80 mm[Hg] Noemi L Alie Work Phone: [facility] Work Phone: 01-18-2021 10:08-0400 Heart rate 76 /min Noemi Strange Work Phone: [facility] Work Phone: 01-18-2021 10:08-0400 Systolic blood pressure 118 mm[Hg] Noemi Strange Work Phone: [facility] Work Phone: 12-18-2020 09:24-0400 Body height 172.7 cm Erma Raedy DO Work Phone: [facility] 12-18-2020 09:24-0400 Body mass index (BMI) [Ratio] 31.6 kg/m2 Erma Raedy DO Work Phone: [facility] 12-18-2020 09:24-0400 Body temperature 98.29 [degF] Erma Raedy DO Work Phone: [facility] 12-18-2020 09:24-0400 Body weight 94.26 kg Erma Raedy DO Work Phone: [facility] 12-18-2020 09:24-0400 Diastolic blood pressure 90 mm[Hg] Erma Raedy DO Work Phone: [facility] 12-18-2020 09:24-0400 Heart rate 75 /min Erma Raedy DO Work Phone: [facility] 12-18-2020 09:24-0400 Respiratory rate 16 /min Erma Raedy DO Work Phone: [facility] 12-18-2020 09:24-0400 SaO2% (BldA) [Mass fraction] 98 % Erma Raedy DO Work Phone: [facility] 12-18-2020 09:24-0400 Systolic blood pressure 135 mm[Hg] Erma Raedy DO Work Phone: [facility] 11-02-2020 09:47-0400 Body height 172.7 cm Erma Raedy DO Work Phone: [facility] 11-02-2020 09:47-0400 Body mass index (BMI) [Ratio] 31.79 kg/m2 Erma Raedy DO Work Phone: [facility] 11-02-2020 09:47-0400 Body temperature 98.6 [degF] Erma Raedy DO Work Phone: [facility] 11-02-2020 09:47-0400 Body weight 94.85 kg Erma Raedy DO Work Phone: [facility] 11-02-2020 09:47-0400 Diastolic blood pressure 90 mm[Hg] Erma Raedy DO Work Phone: [facility] [employer] [facility] 11-02-2020 09:47-0400 Heart rate 86 /min Erma Raedy DO Work Phone: [facility] 11-02-2020 09:47-0400 Respiratory rate 16 /min Erma Raedy DO Work Phone: [facility] 11-02-2020 09:47-0400 SaO2% (BldA) [Mass fraction] 100 % Erma Raedy DO Work Phone: [facility] 11-02-2020 09:47-0400 Systolic blood pressure 135 mm[Hg] Erma Raedy DO Work Phone: [facility] Encounters Encounter Date Encounter Type Care Provider Facility Start: 08-06-2023 End: 08-06-2023 ambulatory [facility] Start: 07-14-2023 End: 07-14-2023 ambulatory [facility] Start: 06-08-2023 End: 06-08-2023 ambulatory [facility] Start: 05-11-2023 End: 05-11-2023 ambulatory [facility] Start: 08-04-2022 Office outpatient vi sit 15 minutes Rafa Glez Work Phone: [employer] Work Phone: Start: 08-01-2022 End: 08-01-2022 Emergency department patient visit Bryce Jaquez [facility] Emergency 04 Start: 01-20-2022 Office outpatient vi sit 15 minutes Rafa Glez Work Phone: [employer] Work Phone: Start: 11-27-2021 Chart Update Rafa Glez Work Phone: [employer] Work Phone: Start: 11-26-2021 Office outpatient vi sit 15 minutes Rafa Glez Work Phone: [email or web address] Work Phone: Start: 06-17-2021 Patient encounter procedure Noemi Strange Work Phone: [email or web address] Work Phone: Start: 05-25-2021 Chart Update Noemi Strange Work Phone: [employer] Work Phone: Start: 04-23-2021 Periodic preventive med est patient 18-39 yrs Noemi Strange Work Phone: [email or web address] Work Phone: Start: 02-15-2021 Office outpatient vi sit 10 minutes Noemi Strange Work Phone: [employer] Work Phone: Start: 01-18-2021 Office outpatient vi sit 15 minutes Noemi Strange Work Phone: [employer] Work Phone: Start: 12-18-2020 End: 12-18-2020 Office outpatient visit 15 minutes Erma Haskins DO Work Phone: [facility] Neurology Procedures Date Procedure Procedure Detail Performing Clinician Start: 08-01-2022 End: 08-01-2022 EKG impression Bryce Jaquez Insertion of intraut erine contraceptive device Noemi Strange Work Phone: Plan of Treatment Date Care Activity Detail Author Start: 01-26-2023 EPV, Provider: Rafa Glez, Status: Pen, Time: 8:15 AM EPV, Provider: Rafa Glez, Status: Pen, Time: 8:15 AM [facility] Work Phone: Start: 01-26-2023 Patient encounter procedure [facility] Start: 01-20-2022 EPV, Provider: Rafa Glez, Status: Pen, Time: 8:45 AM EPV, Provider: Rafa Glez, Status: Pen, Time: 8:45 AM [facility] Work Phone: Start: 01-20-2022 EPV, Provider: Gema Ponce, Status: Pen, Time: 8:30 AM EPV, Provider: Gema Ponce, Status: Pen, Time: 8:30 AM [facility] Work Phone: Start: 06-17-2021 IUDRMVL, Provider: Richardson Guo, Status: Pen, Time: 11:00 AM [facility], Provider: Richardson Guo, Status: Pen, Time: 11:[address] Work Phone: Start: 04-23-2021 Patient encounter procedure ANNUAL, Provider: Richardson Guo, Status: Pen, Time: 9:45 AM [facility] Work Phone: Start: 04-19-2021 End: 04-19-2021 Patient encounter procedure 04/19/2021 Office Visit Neurology Erma Haskins F, DO [address] [place] [address] [phone] [facility] Neurology Start: 03-13-2021 Influenza vaccination INFLUENZ A VACCINE (Season Ended) [facility] Start: 12-18-2020 End: 12-18-2020 Patient encounter procedure 12/18/2020 Office Visit Neurology Jozef Erma F, DO [address] [place] [id number] [facility] [place] Start: 2009 Screening for malign ant neoplasm of cervix CERVICAL CANCER SCREENING DISCUSSION [facility] Start: 10-22-2007 Third diphtheria, te tanus and acellular pertussis (DTaP) vaccination TDAP (ADULT) [facility] Start: 2006 Tetanus vaccination TETANUS [facility] Start: 2004 COVID-19 VACCINE (1) COVID-19 VACCIN E (1) [facility] Start: 10-22-2003 HIV screening HIV SCREENING DISCUSSION [facility] Start: 2001 HIV screening HIV SCREENING DISCUSSION [facility] Start: 1988 Hepatitis C antibody , confirmatory test HEPATITIS C VIRUS SCREENING [facility] Immunizations Immunization Date Immunization Notes Care Provider Fa cili 10-26-2020 Pfizer-BioNTech COVI D-19 Vacc 30 MCG/0.3ML Intramuscular Suspension Noemi Strange Work Phone: [facility] Work Phone: 09-27-2020 Pfizer-BioNTech COVI D-19 Vacc 30 MCG/0.3ML Intramuscular Suspension Noemi Strange Work Phone: [facility] Work Phone: Payers Date Payer Category Payer Private Health Insurance NALLELY [employer] ROSAR[employer] [id number] 2020-Present [id number] 2017 Private Health Insurance [id number] 2017 Private Health Insurance 1988 Unknown [id number] 1988 Unknown [id number] 1988 Unknown [id number] 1988 Unknown [id number] Unknown Unknown [id number] Social History Date Type Detail Facility Tobacco smoking stat [facility] Unknown if ever smoked [employer] Start: 1988 Sex Assigned At Not on file [facility] [employer] Exposure to SARS-CoV -2 (event) Not sure [employer] End: 04-23-2021 Never smoker Never smoker [facility] Work Phone: Goals Date Patient Goal [...] is referred to the cardiology clinic at [facility] for evaluation of the heart. I saw [...] was a large patent foramen ovale with [id number] shunt. Tricuspid valve: There was normal tricuspid [...] to see in cardiology clinic here at [facility], 1-2 months after the or earlier if cardiac condition/status changes in any way. Counseling and/or coordination of care was greater than 35 minutes which is more than 50% of the total time of 60 minutes spent on the enco (more content not included)... [facility] 08-01-2022 History of Present illness Narrative Anahy [...] and blood cultures. All tests were normal. -[facility] Work Phone: 11-23-2021 History of Present illness [...] she has been around anyone with COVID [facility] Work Phone: 04-23-2021 Note 32 Date of Procedure: 04/23/2021 Pathologist: [facility], Cytology Date Reported: 05/01/2021 Date Received: [...] verified by the Molecular Diagnostic Laboratory at [facility]. The lab is certified under the Clinical Laboratory Amendments of 1988 (CLIA 88) as qualified to perform high complexity clinical laboratory testing. This specimen has been analyzed by the [employer] System ([employer] an automated imaging and review system, which assists the laboratory in evaluating cells on ThinPrep Pap tests. Following automated imaging, selected leonard from every slide were reviewed by a writing manager and/or pathologist. Electronically Signed Out By [facility], Cytology//ELC By the signature on this [...] Source of Specimen A: THINPREP PAP CERVICAL [facility] Department of Pathology [id number] [place] [address] documented in this encounter [facility]* Diagnosis Temporomandibular disorder- Primary Temporomandibular joint disorders, unspecified Occipital neuralgia of right side Intractable migraine with aura with status migrainosus Migraine with aura, with intractable migraine, so stated, with status migrainosus documented in this encounter [facility] System[facility] [id number] y.o. female presents for possible Lyme disease. She was at a pentecostalism outing where several youths found a tick on their body. She denies seeing a tick on her person. She has a bruise on her left thigh that resembles a bullseye appearance described in Lyme disease so she is concerned. She denies feeling ill.[facility] Work Phone: History of Present illness [id number] G0 presents for annual exam. Patient safe [...] started vitamins. Patient is no acute concerns [address] Work Phone: History of Present illness [id number] presents for IUD removal. Considering fertility in the near future. Been taking vitamins. Patient has no acute concern[address] Work Phone: History of Present illness [...] uses no contraception. she is sexually active. [facility] [place]. * History: 0. * Cervical cancer [...] weight loss. 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 * denies any SI or HI. * No other health concerns [facility] Work Phone: Summary Purpose Family History [...] Diagnoses Temporomandibular disorder Erma Haskins, DO [address] [place] [address] [facility] Physical Therapy [address] [place] [address] Scheduling Instructions . Status Reason Specialty Diagnoses / Procedures Referred By Contact Referred To Contact New Request Physical Therapy Diagnoses Temporomandibular disorder Occipital neuralgia of right side Erma Haskins, DO [address] [place] [address] [facility] Physical [facility] [address] [place] [address] Chief Complaint 3 month med check.3 month [...] DATE CREATED AUTHOR AUTHOR'S ORGANIZ ATION 12/31/2017 [facility] DATE CREATED AUTHOR AUTHOR'S ORGANIZ ATION 11/29/2021 [facility] DATE CREATED AUTHOR AUTHOR'S ORGANIZ ATION 01/20/2022 [employer] DATE CREATED AUTHOR AUTHOR'S ORGANIZ ATION 01/20/2022 [facility] DATE CREATED AUTHOR AUTHOR'S ORGANIZ ATION 08/08/2023 [facility] Reason for Visit (unrecogniz ed section and [...] BE BASED ON THE PRIMARY CLINICAL RECORDS. [employer] [facility]. provides no warranty or guarantee of the accuracy or completeness of information in this document.
== END | disposition home or self-care (01) ==
PROVIDERS: PCP Nurse Practitioner Family; Referring Provider Obstetrics & Gynecology; Visit Provider Obstetrics & Gynecology
DX: O26.899 Other specified pregnancy related conditions, unspecified trimester (principal); O89.8 Other complications of anesthesia during the puerperium
CPT/HCPCS: 36415; 80053; 82570; 84112; 84156; 84550; 85025

== ENCOUNTER 2023-09-21 14:36 | Outpatient (CLI) | payer OTHER, SELFPAY ==
[2023-08-03 15:27] VITALS: RESP 16
[2023-09-21 14:55] VITALS: BP 137/83; PULSE 83; RESP 16; TEMP 36.7
--- NOTE | 2023-09-21 15:11 | US_ITS ---
STUDY: OBSTETRICAL ULTRASOUND - BIOPHYSICAL PROFILE REASON FOR EXAM: Female, 32 years old tachycardia and variables in the office. LMP: 12/30/2022 PRIOR ULTRASOUND: 08/03/2023 TECHNIQUE: Transabdominal TECHNICAL QUALITY: Adequate. FINDINGS: There is a single intrauterine fetus. The fetus is in a cephalic presentation. There is demonstrated cardiac activity with a heart rate of 127 bpm. There is a normal amniotic fluid volume. The largest amniotic fluid pocket measures 5.7 cm. The amniotic fluid index (PARVEZ) is 17.2 cm. The placenta is posterior in location and is not low lying. There are Grade 1 placental changes. Age by LMP: 37 weeks, 6 days. RICHARD by LMP: 10/06/2023. BIOPHYSICAL PROFILE: Breathing Movements (FBM): 0 Gross Body Movements (GBM): 2 Tone (FT): 2 Amniotic Fluid Volume (AFV): 2 TOTAL SCORE: US/Biophysical Prof W/O Non Stres IMPRESSION: biophysical profile of 12/18. Electronically Signed: Remigio Maguire MD at 19:39 EDT ,
[2023-09-21 15:26] VITALS: PULSE 78; O2SAT 97
[2023-09-21 16:43] VITALS: BP 126/80; PULSE 82
[2023-09-21 18:21] VITALS: BP 127/84; PULSE 94; O2SAT 97
--- NOTE | 2023-09-21 19:29 | OB.TRI.HP_ITS ---
HPI - General General Date of Service: 09/21/23 Chief Complaint: non reactive nst in office HPI Narrative JUWAN SHIPLEY, is a 32 F who presents at 37.6 presented with non reactive nst for prolonged monitoring and bpp. Maternal Data Information RICHARD Calculator Estimated Delivery Date Method Current WG Current Estimate 10/06/23 LMP (Certain) 37w 6d Other Estimates 10/08/23 Ultrasound #1 37w 4d PFSH PFSH Home Medications sertraline 50 mg tablet (Zoloft) 75 mg PO DAILY 12/18/22 [History Last Taken Unknown] multivitamin no.47-iron fum 27 mg-folate no.1 1 mg-dha 300 mg capsule (PNV-DHA) 1 cap PO DAILY 02/24/23 [History Last Taken Unknown] ondansetron HCl 4 mg tablet 4 mg PO Q6H 02/24/23 [History Last Taken Unknown] Allergy/AdvReac Type Severity Reaction Status Date / Time codeine Allergy Severe Vomiting Verified 09/21/23 13:22 Family History Grandmother Breast cancer Father Graves disease Other Heart disease Surgical History History of placement of ear tubes History of tonsillectomy [place] teeth removed Social History adopted: No household members: spouse current occupational status: employed 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[employer] current occupational exposures/hazards: No pets and animals: Yes pets and animals: dog(s) history of recent travel: No sexually active: Yes Smoking Status: Never smoker alcohol intake: never substance use type: does not use well-balanced diet: daily or most days caffeine: Yes Type: coffee Number of servings: 1 eating out: 1-3 times/week during the past year weight has: remained stable what type of physical activity do you participate in: walking and yoga frequency: 3-4 times per week duration: 30-45 minutes/day marie/yarsani: Jewish seatbelt use: always do you feel safe at home: Yes additional social history: Spouse - Renato ( [employer]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 cut cord/dad catch: maybe : yes PP control planned: discussed discussed possible routes of delivery and associated risks: [] special requests: [] Plans Covid status: + test 06/22/23 Flu vaccine: given Tdap vaccine: given Rhogam: no/ Rh neg. LARC form signed: yes movement and labor precautions reviewed. Problem list reviewed and updated with the most current plan of care details and appropriate orders placed. Relevant counseling for the gestational age provided. Continue routine care and follow up unless otherwise noted in visit notes/problem list details OB Flowsheet Initial Weight: Not Recorded Date -?-?-?-?--?-?-?-?-?-?-?-?- EGA Weight BP Urine Prot -?-?-?-?-?-?-?-?-?-?-?-?- Glucose FHR FuHt Pres Dilation -?-?-?-?-?-?-?-?-?-?-?-?- Effaced St Visit Note 03/05/23 -?-?-?-?-?-?-?-?-?-?-?-?- 9w 2d 213 lb 6 oz 135/95 -?-?-?-?-?-?-?-?-?-?-?-?- 160 -?-?-?-?-?-?-?-?-?-?-?-?- SM- CRL 2 cm con s with LMP 04/03/23 -?-?-?-?-?-?-?-?-?-?-?-?- 13w 3d 210 lb 8 oz 130/78 Nega tive -?-?-?-?-?-?-?-?-?-?-?-?- Negative -?-?-?-?-?-?-?-?-?-?-?-?- KW- no vb/crampi ng. flu shot today. no concerns. FHT visualized with handheld US. 05/05/23 -?-?-?-?-?-?-?-?-?-?-?-?- 18w 0d 209 lb 8 oz 122/82 Nega tive -?-?-?-?-?-?-?-?-?-?-?-?- Negative 144 -?-?-?-?-?-?-?-?-?-?-?-?- MH-Nausea persis ts, managing better with reglan and zofran. Needs anatomy US scheduled. No VB. No flutters yet. Active IUP on brief US 06/03/23 -?-?-?-?-?-?-?-?-?-?-?-?- 22w 1d 214 lb 8 oz 138/82 Nega tive -?-?-?-?-?-?-?-?-?-?-?-?- Negative 145 -?-?-?-?-?-?-?-?-?-?-?-?- SM- no vb mild c ramping, nausea improving 07/03/23 -?-?-?-?-?-?-?-?-?-?-?-?- 26w 3d 214 lb 8 oz 115/72 Nega tive -?-?-?-?-?-?-?-?-?-?-?-?- Negative 140 27 -?-?-?-?-?-?-?-?-?-?-?-?- JV- no lof, vagi nal bleeding, or dec fm. no complaints. is rh negative also so will not need rhogam. normal 28 week labs. 07/20/23 -?-?-?-?-?-?-?-?-?-?-?-?- 28w 6d 219 lb 4 oz 112/72 Nega tive -?-?-?-?-?-?-?-?-?-?-?-?- Negative 131 28 -?-?-?-?-?-?-?-?-?-?-?-?- MH-no VB, LOF. G ood Fm. tdap, larc. 08/03/23 -?-?-?-?-?-?-?-?-?-?-?-?- 30w 6d 218 lb 112/70 Negative -?-?-?-?-?-?-?-?-?-?-?-?- Negative 140 30 -?-?-?-?-?-?-?-?-?-?-?-?- LC- no vb/ctx/lo f. good fm. decreased fluids today. LC- no vb/ctx/lof. good fm. decreased PO fluids today. had audible decel in the office x3, NST with variable. sent to for IV hydration, monitoring and BPP. 08/05/23 -?-?-?-?-?-?-?-?-?-?-?-?- 31w 1d 217 lb 2 oz 126/86 -?-?-?-?-?-?-?-?-?-?-?-?- 140 -?-?-?-?-?-?-?-?-?-?-?-?- JV- pt seen toda y for dizziness and tension headache like feeling that started yesterday. heart tones are regular rate without audible decels but sounds slightly irregular sounding. ordering for MFM evaluation and possible echo of baby. ordering labs (cbc, cmp, vit d, thiamine, tsh, b12) 08/17/23 -?-?-?-?-?-?-?-?-?-?-?-?- 32w 6d 222 lb 2 oz 122/75 Nega tive -?-?-?-?--?-?-?-?-?-?-?-?- Negative 168 32 -?-?-?-?-?-?-?-?-?-?-?-?- JV- no lof, vagi nal bleeding, or dec fm. She is a little tearful today about weight gain and beka -moralez contractions. doing better with compression stockings and 100 oz of fluid a day. 08/24/23 -?-?-?-?-?-?-?-?-?-?-?-?- 33w 6d 223 lb 6 oz 126/82 Nega tive -?--?-?-?-?-?-?-?-?-?-?-?- Negative 145 33 -?-?-?-?-?-?-?-?-?-?-?-?- MH-NO VB, LOF. G ood FM. Last 2 days very dizzy, nauseous. Feeling extremely thirsty. No reg CTX. Headache off and on . No vision changes. Labs ordered. 08/31/23 -?-?-?-?-?-?-?-?-?-?-?-?- 34w 6d 222 lb 143/83 131/85 Negative -?-?-?-?-?-?-?-?-?-?-?-?- Negative 160 35 Cephalic 0 .5 -?-?-?-?-?-?-?-?-?-?-?-?- Sm- no vb lof go od fm co irregular ctx 09/08/23 -?-?-?-?-?-?-?-?-?-?-?-?- 36w 0d 225 lb 138/89 119/80 Negative -?-?-?-?-?-?-?-?-?-?-?-?- Negative 140 36 Cephalic 0 -?-?-?-?-?-?-?-?-?-?-?-?- kw- no vb/lof/ct x. good fm. no ambrose/dizziness/bv. 09/14/23 -?-?-?-?-?-?-?-?-?-?-?-?- 36w 6d 226 lb 2 oz 130/85 Nega tive -?-?-?-?-?-?-?-?-?-?-?-?- Negative 130 37 Cephalic -?-?-?-?-?-?-?-?--?-?-?-?- AngieV- juwan co mplains of dizziness, stars in eyes, and headaches again. They had stopped for a couple of weeks and back again. she also feels wet most of the time. rom plus collected and pIH labs repeated. pt declines cervix check. 09/21/23 -?-?-?-?-?-?-?-?-?-?-?-?- 37w 6d 226 lb 2 oz 130/85 -?-?-?-?-?-?-?-?-?-?-?-?- 180 38 Cephalic -?-?-?-?-?-?-?-?-?-?-?-?- SM- no vb lof go od fm no regular ctx, nst FOR TACHYCARDIA NST FHR Rate Baby A Baseline: 115-120 Variability:: Moderate Accelerations:: 15 x 15 Decelerations:: Variable (resolved) NST Reactive:: Yes FHR Category:: Category I Assessment & Plan (1) : QUALIFIERS: Weeks of gestation: 37 weeks Qualified Code(s): Z3A.37 - 37 weeks gestation of COMMENT: Neg GBS declined genetic, ntd, & carrier testing. anatomy reviewed, normal anatomy (2) Supervision of high-risk : QUALIFIERS: Trimester: third trimester Qualified Code(s): O09.93 - Supervision of high risk , unspecified, third trimester COMMENT: PRR , RICHARD 10/06/23, surprise Renato (3) tachycardia: PLAN: Plan Patient presents for triage evaluation secondary to non reassuring NSt in office. BPP 6/8 with reactive NST in WP. having irregular contractions without cervical change FHT: Moderate variability reactive no decelerations category I tracing Yeadon: irreg Contractions Assessment and plan: Reactive NST, reassuring maternal and status patient discharged to home to follow-up in office next week and prn. See problem list details for additional plan information. Charges/Coding Procedures Urinary/Genital [id number]: 32372-46 non-stress test Interp
== END 2023-09-21 19:20 | disposition home or self-care (01) ==
LOC: WPOUT 14:36 → WP 14:37
PROVIDERS: PCP Nurse Practitioner Family; Referring Provider Registered Nurse; Visit Provider Registered Nurse
DX: O36.8930 Maternal care for other specified fetal problems, third trimester, not applicable or unspecified (principal); Z3A.37 37 weeks gestation of pregnancy
CPT/HCPCS: 59025; 59050; 76819; 99221; G0378

== ENCOUNTER 2023-09-24 13:40 | Inpatient (IN) | payer OTHER, SELFPAY ==
[2023-09-24] VITALS (11 sets, daily range): BP systolic 120–139; BP diastolic 67–89; PULSE 82–120; RESP 16–18; TEMP 36.4–37.2; O2SAT 97; BMI 34.0
[2023-09-24] MEDS: Lactated Ringers 1,000 ML 50 ML IV (14:50)
[2023-09-24 15:35] LABS: Absolute Lymphocyte Count 2.19 X10^3/uL (0.83-4.51); Absolute Neutrophil Count 6.7 X10^3/uL (2.0-7.7); Basophil# 0.03 X10^3/uL; Basophil% 0.3 % (0-1); Eosinophil# 0.08 X10^3/uL; Eosinophils% 0.8 % (0-5); Hematocrit 38.3 % (37-47); Hemoglobin 12.7 g/dL (12.0-15.0); Lymphocyte # 2.19 X10^3/ul (0.83-4.51); Lymphocyte % 22.7 % (19-41); Mean Corp Hgb Conc 33.2 g/dL (32-36); Mean Corpuscular Hgb 28.1 pg (27.0-32.0); Mean Corpuscular Volume 84.7 fL (81-99); Mean Platelet Vol. 10.1 fl (6.2-12.0); Monocyte# 0.57 X10^3/uL; Monocyte% 5.9 % (0-10); NRBC Flagged by Analyzer 0 % (0-5); Neutrophil # 6.74 X10^3/uL (2.7-7.7); Neutrophil % 69.8 % (47-70); Platelet Count 236 K/mm3 (150-450); RBC Distribution Width CV 13.1 % (11.6-14.6); RBC Distribution Width SD 39.7 fl (35.1-43.9); Red Blood Count 4.52 M/mm3 (4.2-5.4); White Blood Count 9.7 K/mm3 (4.4-11.0)
[2023-09-24] MEDS: LACTATED RINGERS 500 ML 999 ML IV (16:12)
[2023-09-24 16:13] LABS: Syphilis Antibodies Non-reactive
--- NOTE | 2023-09-24 20:21 | HP.PCM.OB_ITS ---
HPI - General General Date of Admission: 09/24/23 HPI Narrative JUWAN SHIPLEY, is a 32 F who presents in early labor, with decreased movement and intermittent variables. now resolving into a category I tracing. Maternal Data Information RICHARD Calculator Estimated Delivery Date Method Current WG Current Estimate 10/06/23 LMP (Certain) 38w 2d Other Estimates 10/08/23 Ultrasound #1 38w 0d PFSH PFSH Medical History (Updated 09/24/23 @ 20:[address] Ivette Cornell MD) Headache Home Medications sertraline 50 mg tablet (Zoloft) 75 mg PO DAILY depression 12/18/22 [History Last Taken 09/23/23 21:00] multivitamin no.47-iron fum 27 mg-folate no.1 1 mg-dha 300 mg capsule (PNV-DHA) 1 cap PO DAILY 02/24/23 [History Last Taken 09/23/23 21:00] aspirin 81 mg tablet,delayed release (Adult Aspirin Regimen) 81 mg PO DAILY hx covid 09/24/23 [History Last Taken 09/23/23 21:00] Allergy/AdvReac Type Severity Reaction Status Date / Time codeine Allergy Severe Vomiting Verified 09/24/23 14:29 Family History Grandmother Breast cancer Father Graves disease Other Heart disease Surgical History History of placement of ear tubes History of tonsillectomy [place] teeth removed Social History adopted: No household members: spouse current occupational status: employed 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 current occupational exposures/hazards: No pets and animals: Yes pets and animals: dog(s) history of recent travel: No sexually active: Yes Smoking Status: Never smoker alcohol intake: never substance use type: does not use well-balanced diet: daily or most days caffeine: Yes Type: coffee Number of servings: 1 eating out: 1-3 times/week during the past year weight has: remained stable what type of physical activity do you participate in: walking and yoga frequency: 3-4 times per week duration: 30-45 minutes/day marie/yazidi: Rastafari seatbelt use: always do you feel safe at home: Yes additional social history: Spouse - 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 cut cord/dad catch: maybe : yes PP control planned: discussed discussed possible routes of delivery and associated risks: [] special requests: [] Plans Covid status: + test 06/22/23 Flu vaccine: given Tdap vaccine: given Rhogam: no/ Rh neg. LARC form signed: yes movement and labor precautions reviewed. Problem list reviewed and updated with the most current plan of care details and appropriate orders placed. Relevant counseling for the gestational age provided. Continue routine care and follow up unless otherwise noted in visit notes/problem list details OB Flowsheet Initial Weight: Not Recorded Date -?-?-?-?-?-?-?-?-?-?-?-?- EGA Weight BP Urine Prot -?-?-?-?-?-?-?-?-?-?-?-?- Glucose FHR FuHt Pres Dilation -?-?-?-?-?-?-?-?-?-?-?-?- Effaced St Visit Note 03/05/23 -?-?-?-?-?-?-?-?-?-?-?-?- 9w 2d 213 lb 6 oz 135/95 -?-?-?-?-?-?-?-?-?-?-?-?- 160 -?-?-?-?-?-?-?-?-?-?-?-?- SM- CRL 2 cm con s with LMP 04/03/23 -?-?-?-?-?-?-?-?-?-?-?-?- 13w 3d 210 lb 8 oz 130/78 Nega tive -?-?-?-?-?-?--?-?-?-?-?-?- Negative -?-?-?-?-?-?-?-?-?-?-?-?- KW- no vb/crampi ng. flu shot today. no concerns. FHT visualized with handheld US. 05/05/23 -?-?-?-?-?-?-?-?-?-?-?-?- 18w 0d 209 lb 8 oz 122/82 Nega tive -?-?-?-?-?-?-?-?-?-?-?-?- Negative 144 -?-?-?-?-?-?-?-?-?-?-?-?- MH-Nausea persis ts, managing better with reglan and zofran. Needs anatomy US scheduled. No VB. No flutters yet. Active IUP on brief US 06/03/23 -?-?-?-?-?-?-?-?-?-?-?-?- 22w 1d 214 lb 8 oz 138/82 Nega tive -?-?-?-?-?-?-?-?-?-?-?-?- Negative 145 -?-?-?-?-?-?-?-?-?-?-?-?- SM- no vb mild c ramping, nausea improving 07/03/23 -?-?-?-?-?-?-?-?-?-?-?-?- 26w 3d 214 lb 8 oz 115/72 Nega tive -?-?-?-?-?-?-?-?-?-?-?-?- Negative 140 27 -?-?-?-?-?-?-?-?-?-?-?-?- JV- no lof, vagi nal bleeding, or dec fm. no complaints. is rh negative also so will not need rhogam. normal 28 week labs. 07/20/23 -?-?-?-?-?-?-?-?-?-?-?-?- 28w 6d 219 lb 4 oz 112/72 Nega tive -?-?-?-?-?-?-?-?-?-?-?-?- Negative 131 28 -?-?-?-?-?-?-?-?-?-?-?-?- MH-no VB, LOF. G ood Fm. tdap, larc. 08/03/23 -?-?-?-?-?--?-?-?-?-?-?-?- 30w 6d 218 lb 112/70 Negative -?-?-?-?-?-?-?-?-?-?-?-?- Negative 140 30 -?-?-?-?-?-?-?-?-?-?-?-?- LC- no vb/ctx/lo f. good fm. decreased fluids today. LC- no vb/ctx/lof. good fm. decreased PO fluids today. had audible decel in the office x3, NST with variable. sent to for IV hydration, monitoring and BPP. 08/05/23 -?-?-?-?-?-?-?-?-?-?-?-?- 31w 1d 217 lb 2 oz 126/86 -?-?-?-?-?-?-?-?-?-?-?-?- 140 -?-?-?-?-?-?-?-?-?-?-?-?- JV- pt seen toda y for dizziness and tension headache like feeling that started yesterday. heart tones are regular rate without audible decels but sounds slightly irregular sounding. ordering for MFM evaluation and possible echo of baby. ordering labs (cbc, cmp, vit d, thiamine, tsh, b12) 08/17/23 -?-?-?-?-?-?-?-?-?-?-?-?- 32w 6d 222 lb 2 oz 122/75 Nega tive -?-?-?-?-?-?-?-?-?-?-?-?- Negative 168 32 -?-?-?-?-?-?-?-?-?-?-?-?- JV- no lof, vagi nal bleeding, or dec fm. She is a little tearful today about weight gain and beka -moralez contractions. doing better with compression stockings and 100 oz of fluid a day. 08/24/23 -?-?-?-?-?-?-?-?-?-?-?-?- 33w 6d 223 lb 6 oz 126/82 Nega tive -?-?-?-?-?-?-?-?-?-?-?-?- Negative 145 33 -?-?-?-?-?-?-?-?-?-?-?-?- MH-NO VB, LOF. G ood FM. Last 2 days very dizzy, nauseous. Feeling extremely thirsty. No reg CTX. Headache off and on . No vision changes. Labs ordered. 08/31/23 -?-?-?-?-?-?-?-?-?-?-?-?- 34w 6d 222 lb 143/83 131/85 Negative -?-?-?-?-?-?-?-?-?-?-?-?- Negative 160 35 Cephalic 0 .5 -?-?-?-?-?-?-?-?-?-?-?-?- Sm- no vb lof go od fm co irregular ctx 09/08/23 -?-?-?-?-?-?-?-?-?-?-?-?- 36w 0d 225 lb 138/89 119/80 Negative -?-?-?-?-?-?-?-?-?-?-?-?- Negative 140 36 Cephalic 0 -?-?-?-?-?-?-?-?-?-?-?-?- kw- no vb/lof/ct x. good fm. no ambrose/dizziness/bv. 09/14/23 -?-?-?-?-?-?-?-?-?-?-?-?- 36w 6d 226 lb 2 oz 130/85 Nega tive -?-?-?-?-?-?-?-?-?-?-?-?- Negative 130 37 Cephalic -?-?-?-?-?-?-?-?-?-?-?-?- ELINA- juwan co mplains of dizziness, stars in eyes, and headaches again. They had stopped for a couple of weeks and back again. she also feels wet most of the time. rom plus collected and pIH labs repeated. pt declines cervix check. 09/21/23 -?-?-?-?-?-?-?-?-?-?-?-?- 37w 6d 226 lb 2 oz 130/85 -?-?-?-?-?-?-?-?-?-?-?-?- 180 38 Cephalic -?-?-?-?-?-?-?-?-?-?-?-?- SM- no vb lof go od fm no regular ctx, nst FOR TACHYCARDIA NST FHR Rate Baby A Baseline: 150 Variability:: Moderate Accelerations:: 15 x 15 Decelerations:: None NST Reactive:: Yes FHR Category:: Category II (initially with intermittent variables) Uterine Activity:: q3-5 ROS Constitutional Constitutional: Reports systems reviewed and no addt'l complaints, except as documented ENT HEENT: Reports systems reviewed and no addt'l complaints, except as documented Cardiovascular Cardiovascular: Reports systems reviewed and no addt'l complaints, except as documented Respiratory/Chest Respiratory/Chest: Reports systems reviewed and no addt'l complaints, except as documented Gastrointestinal Gastrointestinal: Reports systems reviewed and no addt'l complaints, except as documented and nausea; Denies abdominal pain Genitourinary Genitourinary: Reports systems reviewed and no addt'l complaints, except as documented, contractions Details: present and frequency (regular ) and movement Details: present Musculoskeletal Musculoskeletal: Reports systems reviewed and no addt'l complaints, except as documented Integumentary Integumentary: Reports as per HPI Neurologic Neurologic: Reports systems reviewed and no addt'l complaints, except as documented Endocrine Endocrinology: Reports systems reviewed and no addt'l complaints, except as documented Vital Signs Vital Signs Vital Signs: 09/24/23 13:05 09/24/23 13:05 09/24/23 13:06 Temperature Temperature Source Pulse Rate 120 H 108 H Respiratory Rate Blood Pressure 120/81 H BP Systolic 120 BP Diastolic 81 Pulse Ox 09/24/23 13:06 09/24/23 15:09 09/24/23 15:09 Temperature Temperature Source Pulse Rate 96 Respiratory Rate Blood Pressure 132/89 H BP Systolic 132 BP Diastolic 89 Pulse Ox 97 09/24/23 15:09 09/24/23 15:10 09/24/23 15:09 Temperature Temperature Source Temporal Pulse Rate 103 H Respiratory Rate 18 Blood Pressure BP Systolic BP Diastolic Pulse Ox 09/24/23 15:10 09/24/23 15:09 09/24/23 16:19 Temperature 98.9 F Temperature Source Pulse Rate Respiratory Rate Blood Pressure 127/75 H BP Systolic 127 BP Diastolic 75 Pulse Ox 97 09/24/23 16:19 09/24/23 16:19 09/24/23 16:19 Temperature Temperature Source Temporal Pulse Rate 86 Respiratory Rate Blood Pressure BP Systolic BP Diastolic Pulse Ox 97 09/24/23 16:19 09/24/23 16:19 09/24/23 16:19 Temperature 97.8 F Temperature Source Temporal Pulse Rate Respiratory Rate 18 Blood Pressure BP Systolic BP Diastolic Pulse Ox 09/24/23 16:19 09/24/23 16:19 09/24/23 17:57 Temperature 97.8 F Temperature Source Temporal Pulse Rate Respiratory Rate 18 Blood Pressure BP Systolic BP Diastolic Pulse Ox 09/24/23 17:57 09/24/23 17:57 09/24/23 17:57 Temperature Temperature Source Pulse Rate 91 Respiratory Rate 18 Blood Pressure 138/67 H BP Systolic 138 BP Diastolic 67 Pulse Ox 09/24/23 17:57 09/24/23 19:32 09/24/23 19:33 Temperature 98.1 F Temperature Source Pulse Rate 94 Respiratory Rate Blood Pressure 139/84 H BP Systolic 139 BP Diastolic 84 Pulse Ox 09/24/23 19:32 09/24/23 19:33 09/24/23 19:29 Temperature Temperature Source Temporal Pulse Rate 86 Respiratory Rate Blood Pressure BP Systolic BP Diastolic Pulse Ox 97 09/24/23 19:29 09/24/23 19:29 Temperature 97.5 F L Temperature Source Pulse Rate Respiratory Rate 16 Blood Pressure BP Systolic BP Diastolic Pulse Ox Weight Weight: 224 lb 3.362 oz Body Mass Index (BMI) 34.0 Physical Exam Const alert, oriented x3 and healthy appearing Constitutional Narrative: uncomfortable with contractions HEENT normocephalic and moist oral mucous membranes Head and Scalp: atraumatic Neck full ROM, no lymphadenopathy, supple and thyroid normal General: trachea midline Thyroid: thyroid normal Lymph Lymphatic: no lymphadenopathy noted Chest inspection of chest normal Resp normal respiratory effort Cardio regular rate GI normal to inspection, nondistended, normoactive bowel sounds, soft to palpation and non-tender Inspection: gravid external exam normal Bimanual Exam - Vag & Uterus: uterus non-tender Manual OB Exam: estimated gestational size appropriate, presentation cephalic, dilated, effaced and station Extremity normal to inspection General Extremity: Negative for edema Skin no rashes or lesions noted Neuro deep tendon reflexes 2+ bilaterally Motor Exam: strength 5/5 throughout and clonus absent Psych mental status grossly normal Labs Labs Labs: Blood Type A NEGATIVE Antibody Screen NEGATIVE Hct 38.3 % (37-47) Hgb 12.7 g/dL (12.0-15.0) Pap Smear Negative Obstetrics Ultrasound Syphilis Total Ab Non-reactive Rubella IgG Antibody Reactive (Nonreactive) Hep Bs Antigen Non-Reactive (Nonreactive) Hepatitis C Antibody Non-Reactive (Nonreactive) Chlamydia DNA (TRISTIAN) Negative (Negative) N.gonorrhoeae DNA (TRISTIAN) Negative (Negative) HIV 1&2 Antibody Non-Reactive (Nonreactive) Glucose 1 Hr 50 gm 120 mg/dL (70-140) Group B Strep DNA Negative (Negative) Assessment & Plan (1) COVID-19 affecting in second trimester: COMMENT: asa 81 mg daily (2) Rh negative status during : QUALIFIERS: Trimester: second trimester Qualified Code(s): O26.892 - Other specified related conditions, second trimester; Z67.91 - Unspecified blood type, Rh negative COMMENT: NO rhogam. negative/lab scanned to her chart (3) Nausea/vomiting in : COMMENT: supportive care ordered, failed doxylamine, doing well with zofran (4) Depression: QUALIFIERS: Depression Type: other depression Qualified Code(s): F32.89 - Other specified depressive episodes COMMENT: zoloft, counseling encouraged. stable (5) Supervision of high-risk : QUALIFIERS: Trimester: third trimester Qualified Code(s): O09.93 - Supervision of high risk , unspecified, third trimester COMMENT: PRR , RICHARD 10/06/23, surprise Renato (6) : QUALIFIERS: Weeks of gestation: 37 weeks Qualified Code(s): Z3A.37 - 37 weeks gestation of COMMENT: Neg GBS declined genetic, ntd, & carrier testing. anatomy reviewed, normal anatomy (7) Variable heart rate decelerations, antepartum: COMMENT: proceed with delivery (8) Decreased movements in third trimester: PLAN: Plan exp management followed by kohler bulb placed due to minimal change, and pitocin PRN. gbs neg
[2023-09-24] MEDS: 0.9% Normal Saline Single 100 ML IV.SOLN. INTRA-UTER (20:38)
[2023-09-25] VITALS (74 sets, daily range): BP systolic 101–150; BP diastolic 50–86; PULSE 81–150; RESP 16–20; TEMP 35.9–38.9; O2SAT 87–99
--- NOTE | 2023-09-25 | PLAC_PTH ---
PATIENT: JUWAN SHIPLEY LOC: [facility] U#:[id number] AGE/SX: 32/F ROOM: WP010 RE09/24/[address]: Dr. Lizzeth Abarca DO : 1990 BED: 1 DIS: 09/27/2023 SPEC #: [id number] RECD: 09/26/23 00:18 STATUS: CHERYL MERY #: [id number] TIERRA: 09/25/23 00:[address]: Lizzeth Abarca DEPT: SURGICAL PATHOLOGY RECD BY: Heladio Singh ENTERED: 09/28/23 10:28 SP TYPE: PLACENTA OTHR DR: Noemi Dallas, SQL ETL DEVELOPER-C Tissues: Placenta, NOS Procedures: Surgery Specimen Level V HEADER OPERATION: Vaginal delivery PRE-OP DIAGNOSIS: Suspected Chorioamnionitis TISSUE SUBMITTED: Placenta MICROSCOPIC DIAGNOSIS Martínez placenta (555 gm): Umbilical cord - Trivascular with no inflammation Placental membranes - Acute chorionitis and acute deciduitis Placental disc - Deepa-Josue change, intravillous congestion and mild chronic deciduitis. AM: 09/29/23 MICROSCOPIC DESCRIPTION Slides are reviewed. GROSS DESCRIPTION SPECIMEN: PLACENTA / CLINICAL INFORMATION: A. Weight: 3.144 kg B. Gestational Age: 38 weeks C. Sex: Male PLACENTAL WEIGHT (POST FIXATION): 555gm PLACENTAL DIMENSIONS: 21.0x21.0x3.0cm PLACENTAL SHAPE: Usual ovoid PLACENTAL WEIGHT FOR GESTATIONAL AGE: Within 10-99th percentile MEMBRANES - Present A. Insertion: Marginal B. Site of rupture from edge: 3.0cm from edge of placental disc C. Color of membrane: Loya-rodriguez D. Abnormalities: None UMBILICAL CORD - Present A. Color: Loya-rodriguez B. Insertion: Central C. Length: 27cm D. Diameter: 1.0cm E. Number of vessels: Three F. Abnormalities: None PLACENTAL DISC - Present A. Color of surface: Loya-rodriguez B. surface abnormalities: None C. Maternal cotyledons: Intact with minimal tears D. Attached retro placental clot: No clot E. Cut surface: Dark red and spongy F. Lesions: None G. Separate clot: Also present in the container is multiple fragments of blood clot weighing 36 grams and measuring in aggregate 9.0x7.0x2.0cm. SECTIONS SUBMITTED: 1. Membrane roll 2. Cord, maternal end 3. Cord, end 4. Placental disc, and maternal surfaces 5. Placental disc, and maternal surfaces 6. Placental disc, and maternal surfaces SJ/mr 09/28/23 TC:2 CPT: 05926
[2023-09-25] MEDS: Oxytocin 15 Units/NS 250ml 15 UNITS/250 ML IV.SOLN 2 UNITS IV (02:07)
[2023-09-25] MEDS: Lactated Ringers 1,000 ML 50 ML IV (06:36)
[2023-09-25] MEDS: Ondansetron 4 MG/2 ML Vial IV ×3 (09:59→22:46)
[2023-09-25] MEDS: LACTATED RINGERS 500 ML 999 ML IV (10:48)
[2023-09-25] MEDS: fentaNYL-bupivacaine (epidural) 100 ML BAG EPIDURAL ×3 (11:11→19:48)
--- NOTE | 2023-09-25 12:51 | PCM.PN.OB ---
Subjective Subjective pt is comfortable with epidural. current tracing: FHT: Moderate variability reactive no current decelerations category I tracing [place]: q 2-4 min Contractions MVU 200-220 Cx: tight 3-4/80/-1 clear fluid present. A/P: 38 weeks, iol for decel and persistent decreased movement. increasing pitocin now. arom was at 6:30 today and pit was started at 2 am. it has been 6 hours since arom and 11 hours of pitocin with no cervical change. will re-evaluate in 2 hours. Objective Data Objective Data Vital Signs: Vital Signs Temp Pulse Resp BP Pulse Ox 96.7 F L 90 18 115/70 98 09/25/23 11:30 09/25/23 12:45 09/25/23 11:30 09/25/23 12:45 09/25/23 11:41 Weight: 224 lb 3.362 oz Body Mass Index (BMI) 34.0 Intake & Output: Intake and Output for Last 24 Hours 09/23/23 09/24/23 09/25/23 23:59 23:59 23:59 Intake Total 500 / 500 810.09 / 810.09 Output Total 1200 / 1200 1350 / 1350 Balance -700 / -700 -539.91 / -539.91 Lab / Micro Data 09/24/23 14:50 Labs: Laboratory Results - last 24 hr 09/24/23 14:50: WBC 9.7, RBC 4.52, Hgb 12.7, Hct 38.3, MCV 84.7, MCH 28.1, MCHC 33.2, RDW Std Deviation 39.7, RDW Coeff of Linnea 13.1, Plt Count 236, MPV 10.1, Immature Gran % (Auto) 0.500, Neut % (Auto) 69.8, Lymph % (Auto) 22.7, [place] % (Auto) 5.9, Eos % (Auto) 0.8, Baso % (Auto) 0.3, Absolute Neuts (auto) 6.7, Absolute Lymphs (auto) 2.19, Nucleated RBC % 0, Syphilis Total Ab Non-reactive, Blood Type A NEGATIVE, Antibody Screen NEGATIVE
[2023-09-25] MEDS: Amnioinfusion- 0.9% NS 1,000 ML IV.SOLN. 300 ML INTRA-UTER (15:15)
--- NOTE | 2023-09-25 17:04 | PCM.PN.OB ---
Subjective Subjective pt is sitting up in bed. still very comfortable. Since my last in person visit she started having variable decelerations and an amnioinfusion was ordered. Since then the tracing is improved current tracing: FHT: Moderate variability reactive mild variable decelerations, not persistent category II tracing [place]: Q1 min- 5min Contractions cx: /-1 reviewed tracing abnormalities since last note: improved variable decels A/P: pitocin was stopped and restarted at half (currently at 10) continue current management. Objective Data Objective Data Vital Signs: Vital Signs Temp Pulse Resp BP Pulse Ox 98.3 F 90 18 124/68 H 98 09/25/23 16:55 09/25/23 16:57 09/25/23 16:55 09/25/23 16:57 09/25/23 13:56 Weight: 224 lb 3.362 oz Body Mass Index (BMI) 34.0 Intake & Output: Intake and Output for Last 24 Hours 09/23/23 09/24/23 09/25/23 23:59 23:59 23:59 Intake Total 500 / 500 941.12 / 941.12 Output Total 1200 / 1200 1350 / 1350 Balance -700 / -700 -408.88 / -408.88 Lab / Micro Data 09/24/23 14:50
[2023-09-25] MEDS: Lactated Ringers 1,000 ML 200 ML IV (18:03)
[2023-09-25] MEDS: Oxytocin 15 Units/NS 250ml 15 UNITS/250 ML IV.SOLN 16 UNITS IV (21:48)
[2023-09-25] MEDS: Methylergonovine 0.2 MG/ML Ampul IM (22:40)
[2023-09-25] MEDS: Carboprost Tromethamine 250 MCG/ML Ampul IM (22:42)
--- NOTE | 2023-09-25 23:17 | EX.PCM.OBRPT ---
Assessment & Plan (1) Decreased movements in third trimester: (2) Variable heart rate decelerations, antepartum: COMMENT: proceed with delivery (3) COVID-19 affecting in second trimester: COMMENT: asa 81 mg daily (4) Rh negative status during : QUALIFIERS: Trimester: second trimester Qualified Code(s): O26.892 - Other specified related conditions, second trimester; Z67.91 - Unspecified blood type, Rh negative COMMENT: NO rhogam. negative/lab scanned to her chart (5) Nausea/vomiting in : COMMENT: supportive care ordered, failed doxylamine, doing well with zofran (6) Depression: QUALIFIERS: Depression Type: other depression Qualified Code(s): F32.89 - Other specified depressive episodes COMMENT: zoloft, counseling encouraged. stable (7) Supervision of high-risk : QUALIFIERS: Trimester: third trimester Qualified Code(s): O09.93 - Supervision of high risk , unspecified, third trimester COMMENT: PRR , RICHARD 10/06/23, surprise Renato (8) : QUALIFIERS: Weeks of gestation: 37 weeks Qualified Code(s): Z3A.37 - 37 weeks gestation of COMMENT: Neg GBS declined genetic, ntd, & carrier testing. anatomy reviewed, normal anatomy (9) Chorioamnionitis: Maternal Data Information RICHARD Calculator Estimated Delivery Date Method Current WG Current Estimate 10/06/23 LMP (Certain) 38w 3d Other Estimates 10/08/23 Ultrasound #1 38w 1d Final RICHARD Source: LMP Gestational age: 38 weeks 3 days Alpha Doctor Who Attended Delivery: Joshua Ontiveros Vaginal Delivery Maternal Presentation Maternal Presentation: Medically Indicated Induction Type of Induction: Pitocin, Kohler Bulb and Amniotomy Operative Information Date of Procedure: 09/25/23 Pre-Operative Diagnosis: 32 y/o @ 38 weeks 3 days, decelerations, decreased movement, suspected chorioamnionitis in labor, maternal exhaustion Post-Operative Diagnosis: 32 y/o @ 38 weeks 3 days, decelerations, decreased movement, suspected chorioamnionitis in labor, maternal exhaustion Type of Anesthesia: Epidural Drain: Kohler to straight drain Estimated Blood Loss: 500cc Time of Delivery: 22:46 Findings Description of Procedure: This is a 32 year old woman who was admitted to labor and delivery for decelerations in the office on 09/24/23. Induction was initiated with a kohler bulb only then arom and pitocin was started 6:30 am on 09/25/23. There was clear fluid present. The patient progressed to complete and patient pushed for an hour but was tearful stating that she did not feel well and needed help. At that time her extremities felt warm to touch but temp was only 98 degrees F. The tracing was overall reassuring and was receiving an amnioinfusion from prior variable decelerations. The decision was made to perform a vacuum extraction due to poor maternal effort with pushing, exhaustion, and per maternal request. The risk benefits and alternatives of the procedure were discussed with the patient and verbal consent was obtained. The infant was noted to be at a +2 station, the cervix was completely dilated. The infant's head was noted to be in the right occiput anterior presentation. The vacuum was placed in the correct placement in front of the posterior fontanelle. This was confirmed digitally. With the patient's next contraction, the vacuum was inflated and a gentle downward pressure was used to assist with bringing the baby's head to a +3 station. With 2 pull and 0 pop offs. The head was delivered atraumatically. a tight nuchal cord was noted. And reduced by doubly clamping and cutting. The anterior shoulder followed by the posterior shoulder were delivered without difficulty. The was handed off to the patient's chest. The was found to be vigorous and crying and moving of all 4 extremities. The mouth and nares were bulb suctioned. After 60 second delay the cord was clamped and cut and the infant was handed off to the awaiting nurses for routine assessment. The placenta was delivered with gentle traction and uterine massage. Inspection of the vagina cervix and perineum was performed. There were no lacerations to the vagina or to the cervix. The peritoneum was found to have a 2nd degree perineal laceration. The perineal laceration was closed using a 2-0 Vicryl in the usual sterile fashion. During the repair she started bleeding briskly. IM methergine and hemabate were given and her temperature was found to be 102 orally. Antibiotics were ordered as well as a stat cbc and fluids. Sponge lap and needle counts were correct x2. She is now recovering in stable condition. Presentation: Vertex Amniotic Membrane Rupture Type: Artificial Time of Membrane Rupture: 6:30 Amniotic Fluid Description: Clear Placental Delivery Description: Spontaneous Placenta Disposition: Sent to Pathology Cord Vessel Description: 3 Vessels Cord Entanglement: Around neck x 1, tight Nuchal Cord Compression: With compression Infant A Gender: Male (1 minute): 7 (5 minute): 7 Delayed Cord Clamping: No Post Vaginal Delivery Medications Given After Delivery: IV Pitocin, IM Methergin and IM Hemabate Episiotomy Description: None Laceration: 2nd degree Complication Complications: - (suspected chorioamnionitis upon delivery ) Multi Select Codes Urinary/Genital Urinary/Genital CPT Codes: 12379 Vaginal Delivery [facility]
[2023-09-25] MEDS: Oxytocin 15 Units/NS 250ml 15 UNITS/250 ML IV.SOLN 83 UNITS IV (23:23)
--- NOTE | 2023-09-25 23:28 | PCM.DC ---
Discharge Instructions Diet Discharge Diet: No restrictions Activity Discharge Activity: Return to Normal Activity, May Not Drive (while taking narcotic pain medications.) and May Shower May resume sexual activity in: 4-6 weeks Dressing / Incision Call your doctor if your incision/area has: Continuous Slow Oozing, Sudden Increased Bleeding, Increased Pain/ Swelling, Increased Redness and Foul Smelling Discharge Follow Up Care Please Follow Up With: Lizzeth Abarca, DO When: Call [phone] to make an appointment with your doctor in 6 weeks. If you had elevated blood pressure or 4th degree laceration, you will need to be seen in 2 weeks. Test Results: Test results from this visit will be discussed in further detail at your follow-up appointment, if applicable. Discharge Plan Admission Admit Date/Time: 09/24/23 13:40 Attending Provider: Lizzeth Abarca Primary Care Provider: Noemi Dallas NP Discharge Orders/Prescriptions Prescriptions: No Action sertraline [Zoloft] 50 mg tablet 75 mg PO DAILY PNV-DHA 27 mg iron-1 mg -300 mg capsule 1 cap PO DAILY aspirin [Adult Aspirin Regimen] 81 mg tablet,delayed release (DR/EC) 81 mg PO DAILY Referrals / Follow Up: Noemi Dallas NP, DIRECTOR OF DESIGN-C [Primary Care Provider] -
[2023-09-25 23:46] LABS: Absolute Neutrophil Count 17.3 X10^3/uL (2.0-7.7); Basophil# 0.05 X10^3/uL; Basophil% 0.3 % (0-1); Eosinophil# 0.01 X10^3/uL; Eosinophils% 0.1 % (0-5); Hemoglobin 11.1 g/dL (12.0-15.0); Lymphocyte % 6.1 % (19-41); Mean Corp Hgb Conc 33.6 g/dL (32-36); Mean Corpuscular Hgb 28.9 pg (27.0-32.0); Mean Corpuscular Volume 85.9 fL (81-99); Mean Platelet Vol. 10.1 fl (6.2-12.0); Monocyte# 1.03 X10^3/uL; Monocyte% 5.2 % (0-10); NRBC Flagged by Analyzer 0 % (0-5); Neutrophil % 87.7 % (47-70); Platelet Count 199 K/mm3 (150-450); RBC Distribution Width CV 13.2 % (11.6-14.6); RBC Distribution Width SD 40.5 fl (35.1-43.9); Red Blood Count 3.84 M/mm3 (4.2-5.4); White Blood Count 19.7 K/mm3 (4.4-11.0)
[2023-09-25] MEDS: Loperamide 2 MG Capsule PO (23:48)
[2023-09-25] MEDS: Gentamicin IV 320 MG in Dextrose 5%-Water (50mL Bag) 50 ML 100 MG IVPB (23:53)
[2023-09-26] VITALS (21 sets, daily range): BP systolic 107–124; BP diastolic 61–84; PULSE 80–136; RESP 16–18; TEMP 36.6–37.3; O2SAT 95–100
[2023-09-26] MEDS: Lactated Ringers 1,000 ML 200 ML IV
[2023-09-26 00:33] LABS: Pathology Specimen OB SEE PATHOLOGY REPORT
[2023-09-26] MEDS: Ampicillin 2 GM in 0.9% Normal Saline (100mL MB+) 100 ML IV ×4 (00:39→18:06)
[2023-09-26] MEDS: Acetaminophen 500 MG Tablet 1000 MG PO ×2 (05:55→18:01)
[2023-09-26] MEDS: Lactated Ringers 1,000 ML 30 ML IV (06:44)
[2023-09-26] MEDS: 0.9% Saline Lock 10 ML Syringe IV ×3 (07:46→18:05)
--- NOTE | 2023-09-26 09:57 | PN.OBGYN_ITS ---
Subjective Subjective Patient doing well without complaints. Tolerating PO. Ambulating and voiding without difficulty. Feeding well. Denies chest pain, shortness of breath, calf pain/swelling, fevers, chills, lightheadedness. Objective Data Objective Data Vital Signs: Vital Signs Temp Pulse Resp BP Pulse Ox O2 Del Method 99.1 F 85 16 107/74 97 Room Air 09/26/23 07:49 09/26/23 07:49 09/26/23 07:49 09/26/23 07:49 09/26/23 07:49 09/26/23 07:49 Oxygen Delivery Method Room Air Weight: 224 lb 3.362 oz Body Mass Index (BMI) 34.0 Intake & Output: Intake and Output for Last 24 Hours 09/24/23 09/25/23 09/26/23 23:59 23:59 23:59 Intake Total 500 / 500 3817.16 / 3817.16 908 / 908 Output Total 1200 / 1200 2150 / 2150 1700 / 1700 Balance -700 / -700 1667.16 / 1667.16 -792 / -792 Lab / Micro Data 09/25/23 23:30 Labs: Laboratory Results - last 24 hr 09/25/23 23:30: WBC 19.7 H, RBC 3.84 L, Hgb 11.1 L, Hct 33.0 L, MCV 85.9, MCH 28.9, MCHC 33.6, RDW Std Deviation 40.5, RDW Coeff of Linnea 13.2, Plt Count 199, MPV 10.1, Immature Gran % (Auto) 0.600, Neut % (Auto) 87.7 H, Lymph % (Auto) 6.1 L, [place] % (Auto) 5.2, Eos % (Auto) 0.1, Baso % (Auto) 0.3, Absolute Neuts (auto) 17.3 H, Absolute Lymphs (auto) 1.20, Nucleated RBC % 0 ROS Constitutional Constitutional: Denies chills, fatigue, fever(s), poor appetite or weakness Eyes Eyes: Denies blurry vision, change in vision, seeing flashes or spots in vision ENT HEENT: Denies dizziness, headache(s), loss taste/smell or sore throat Cardiovascular Cardiovascular: Denies chest pain, dizziness, dyspnea, irregular heart rhythm, palpitations or rapid heart rate Respiratory/Chest Respiratory/Chest: Denies chest tightness, cough, dyspnea or breast pain Gastrointestinal Gastrointestinal: Denies abdominal pain, constipation or vomiting Genitourinary Genitourinary: Denies dysuria or flank pain Musculoskeletal Musculoskeletal: Denies difficulty walking, joint pain, limited range of motion or numbness Neurologic Neurologic: Denies abnormal movements, abnormal speech, dizziness, numbness, seizure-like activity or syncope Psychiatric Psychiatric: Denies anxiety, behavioral changes, change in appetite, confusion, depression or suicidal thoughts Physical Exam Const alert, oriented x3 and no apparent distress General Appearance: cooperative and comfortable Resp normal respiratory effort Cardio regular rate GI normal to inspection, nondistended, normoactive bowel sounds GI Narrative: uterus is firm below umbilicus Palpation: soft Back/Spine no CVA tenderness and thoraco-lumbar ROM normal Extremity normal to inspection, no clubbing, cyanosis or edema, no calf tenderness and no pedal edema Psych mental status grossly normal, thought process normal, cooperative, affect normal, speech normal, activity/motor behavior normal, denies homicidal ideation and denies suicidal ideation Assessment & Plan (1) Status post vaginal delivery: (2) Chorioamnionitis: (3) Rh negative status during : QUALIFIERS: Trimester: second trimester Qualified Code(s): O26.892 - Other specified related conditions, second trimester; Z67.91 - Unspecified blood type, Rh negative COMMENT: NO rhogam. negative/lab scanned to her chart (4) Depression: QUALIFIERS: Depression Type: other depression Qualified Code(s): F32.89 - Other specified depressive episodes COMMENT: zoloft, counseling encouraged. stable PLAN: Plan s/p PPD # 1 1. routine post delivery care- plan to continue ampicillin for rest of today to complete 24 hours- for chorioamnionitis (2 more doses) 2. breast feeding- support given 3. rh negative- rhogam workup ordered 4. rubella immune 5. continue zoloft
[2023-09-26] MEDS: Ibuprofen 600 MG Tablet PO ×2 (10:07→14:58)
[2023-09-26] MEDS: Senna/Docusate Sodium 1 Tablet PO (10:08)
--- NOTE | 2023-09-26 13:29 | CASEMGMT ---
Social Work Assessment Labor and Delivery Unit Patient Address:[address] [place] [address] [place] [address] Phone number: [phone] Date of Referral: 09/26/23 Time of Referral:? [phone] Referred By: Lizzeth Abarca Date of Intervention: ??09/26/23 Time of Intervention:? 1300 Reason for Referral:? on zoloft Sw completed chart review and acknowledges social work consult entered due to mother of baby (MOB- Anahy) being on zoloft. Sw presented to bedside and introduced self to MOB and father of baby (FOB- Renato). Sw explained sw role during hospitalization and completed psychosocial assessment. FOB present for second half of conversation. History obtained from: medical records, MOB and FOB Household composition: Residing in the home at this time is MOB, CAHNTAL, their dog and now baby when ready for d/c Patient's parent/guardian status:? 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 MICHELLE denies domestic violence or intimate partner violence. Medical History: ?MICHELLE is 32 year old female who is 1, para 0- now 1 following labor and delivery. MICHELLE received routine care with [facility] throughout . MICHELLE presented to hospital for induction of labor and delivered baby on 09/25/23 via vaginal delivery at 38 weeks gestation. Baby boy, named Víctor, was born weighing 7lb 9oz and his apgars were 7, 7, and 8 at one, five and ten minutes of life, respectfully. Baby will be followed by Dr. Epperson for pediatrics. MICHELLE states that she is breast feeding and think this is going okay. Baby requiring admission to [facility] Nurs[facility] due to respiratory distress at this time. Educational Status:? Both parents obtained college degrees, MOB also went on to obtain her PHD. Financial Status: Both parents are gainfully employed outside of the home. 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 Infant Supplies:??Parents have obtained all necessary baby supplies, including: car seat, safe sleep space, clothes, diapers and wipes. Childcare/Caregiver(s):? When both parents are working, MOB has the availability to take baby to work with her. Transportation:?? No barriers Programs/Agencies Involved: ?Parents are not connected to any resources that help them fiancially. MICHELLE is connected to psychiatry and counseling services through [facility]. ?? Children Services/Legal Issues:??? no history of involvement, no issues or concerns warranting referral to be made at this time. Behavioral Health Issues: ??Mental Health History:??FOB denies mental health history. MICHELLE states that she has been diagnosed with generalized anxiety disorder and major depressive disorder. MICHELLE is prescribed zoloft to help her manager of marketing he mental health symptoms. MOB states that she is familiar with signs and symptoms of baby blues and to be on the lookout for. MOB states that she already has a follow up appointment with her psychiatrist. ? Substance Use History:?No drug use prior to or during . ? Family History: Parents deny family history of addiction/ drug use or significant mental health diagnoses. ? Drug Screens: ??No drug screens observed during chart review. Family/Social Stressors:? Parents deny any issues, concerns or stressors at this time. Support Systems: Both sets of grandparents are identified as strong supports for parents. Depression/Shaken Baby/Safe Sleeping:? Sw educated parents on signs and symptoms of baby blues and depression and anxiety to be on the lookout for. Parents express understanding. Sw educated parents on shaken baby prevention, ABCs of safe sleep and Help Me Grow. Parents express understanding. ASSESSMENT:? MOB and baby admitted following labor and delivery of . Baby admitted to [facility] Care Nurs[facility] at this time due to respiratory distress. MICHELLE has obtained all necessary baby supplies and states she has a lot of natural supports in place. FOB states that he would be able to recognize if MICHELLE struggled with her mental health during this period and would know how to help and support her. Parents were talkative and open to support and education. MOB on zoloft and connected to community mental health supports and services. PLAN:? MOB and baby to be discharged when medically ready. ?No other services requested or indicated. Barbie Espinoza, ER REGISTRAR, EMERGENCY WORKER
[2023-09-26] MEDS: Benzocaine/Lanolin/Aloe Vera 1 SPRAY EACH TOPICAL (19:01)
[2023-09-26] MEDS: Sertraline 50 MG Tablet 75 MG PO (19:44)
[2023-09-27] MEDS: 0.9% Saline Lock 10 ML Syringe IV (00:03)
[2023-09-27] MEDS: Acetaminophen 500 MG Tablet 1000 MG PO ×2 (00:03→08:39)
[2023-09-27] MEDS: Ampicillin 2 GM in 0.9% Normal Saline (100mL MB+) 100 ML IV (00:04)
[2023-09-27 01:00] VITALS: BP 120/61; PULSE 97; RESP 16; TEMP 36.8; O2SAT 99
[2023-09-27] MEDS: Ibuprofen 600 MG Tablet PO ×2 (04:55→10:36)
[2023-09-27 08:40] VITALS: BP 118/76; PULSE 75; RESP 16; TEMP 36.8; O2SAT 98
[2023-09-27] MEDS: Senna/Docusate Sodium 1 Tablet PO (08:45)
--- NOTE | 2023-09-27 09:38 | DS.PCM_ITS ---
Providers Date of Admission: 09/24/23 Primary Care Physician: SPEEDY Taylor Reason For Visit: VAGINAL DELIVERY Diagnosis Discharge Diagnosis (1) Status post vaginal delivery: Status: Acute (2) Chorioamnionitis: Status: Acute Code(s): O41.1290 - Chorioamnionitis, unspecified trimester, not applicable or unspecified (3) Rh negative status during : Status: Acute Code(s): O26.899 - Other specified related conditions, unspecified trimester; Z67.91 - Unspecified blood type, Rh negative Qualifiers: Trimester: second trimester Qualified Code(s): O26.892 - Other specified related conditions, second trimester; Z67.91 - Unspecified blood type, Rh negative (4) Depression: Status: Acute Code(s): F32.A - Depression, unspecified Qualifiers: Depression Type: other depression Qualified Code(s): F32.89 - Other specified depressive episodes Plan s/p PPD # 1 1. routine post delivery care- plan to continue ampicillin for rest of today to complete 24 hours- for chorioamnionitis (2 more doses) 2. breast feeding- support given 3. rh negative- rhogam workup ordered 4. rubella immune 5. continue zoloft Medications at Discharge Home Medications sertraline 50 mg tablet (Zoloft) 75 mg PO DAILY depression 12/18/22 multivitamin no.47-iron fum 27 mg-folate no.1 1 mg-dha 300 mg capsule (PNV-DHA) 1 cap PO DAILY 02/24/23 aspirin 81 mg tablet,delayed release (Adult Aspirin Regimen) 81 mg PO DAILY hx covid 09/24/23 Hospital Course Operations None Procedures - (vacuum assisted vaginal delivery ) Summary of Care Provided Minutes Spent on Discharge: 25 Hospital Course: The patient was admitted on 09/24/23 for induction of labor due to decelerations in the office. She delivered on 09/25/23 via vacuum assisted deli very due to exhaustion. On post day #1 she was recovering well but requiring assistance with breast feeding. On post day #2 she was tearful due to some difficulty and mild perineal pain but ready for discharge to [facility] status while baby is still being monitored in the NICU Physical Exam Const alert, oriented x3 and no apparent distress General Appearance: cooperative and comfortable Resp normal respiratory effort Cardio regular rate GI normal to inspection, nondistended, normoactive bowel sounds GI Narrative: uterus is firm below umbilicus Palpation: soft Back/Spine no CVA tenderness and thoraco-lumbar ROM normal Extremity normal to inspection, no clubbing, cyanosis or edema, no calf tenderness and no pedal edema Psych mental status grossly normal, thought process normal, cooperative, affect normal, speech normal, activity/motor behavior normal, denies homicidal ideation and denies suicidal ideation Weight / BMI Weight Weight: 224 lb 3.362 oz Body Mass Index (BMI) 34.0 ABG / Lab / Microbiology Data 09/25/23 23:30 D/C Instructions Discharge Diet: No restrictions May resume sexual activity in: 4-6 weeks Call your doctor if your incision/area has: Continuous Slow Oozing, Sudden Increased Bleeding, Increased Pain/ Swelling, Increased Redness and Foul Smelling Discharge Please Follow Up With: Lizzeth Abarca, DO When: Call [phone] to make an appointment with your doctor in 6 weeks. If you had elevated blood pressure or 4th degree laceration, you will need to be seen in 2 weeks. Meaningful Use Info Meaningful Use Diagnoses (Choose all that apply): None applicable Discharge Plan Admission Admit Date/Time: 09/24/23 13:40 Attending Provider: Lizzeth Abarca Primary Care Provider: Noemi Dallas NP Discharge Orders/Prescriptions Prescriptions: Continued sertraline [Zoloft] 50 mg tablet 75 mg PO DAILY PNV-DHA 27 mg iron-1 mg -300 mg capsule 1 cap PO DAILY aspirin [Adult Aspirin Regimen] 81 mg tablet,delayed release (DR/EC) 81 mg PO DAILY Referrals / Follow Up: Noemi Dallas NP, BOILER WASHER-C [Primary Care Provider] - Disposition Disposition (needs filled in before D/C Order can be placed): Home, Self Care
[2023-09-27 12:50] VITALS: BP 128/83; PULSE 85; RESP 16; TEMP 36.7; O2SAT 97
== END 2023-09-27 13:00 | disposition home or self-care (01) | DRG 805 ==
LOC: WPOUT 13:43 → WP 13:43
PROVIDERS: Obstetrics & Gynecology; Admitting Provider Obstetrics & Gynecology; PCP Nurse Practitioner Family; Visit Provider Obstetrics & Gynecology
DX: O75.81 Maternal exhaustion complicating labor and delivery (principal); Z37.0 Single live birth; O41.1230 Chorioamnionitis, third trimester, not applicable or unspecified; O99.344 Other mental disorders complicating childbirth; F32.A Depression, unspecified; O36.8130 Decreased fetal movements, third trimester, not applicable or unspecified; O69.2XX0 Labor and delivery complicated by other cord entanglement, with compression, not applicable or unspecified; O70.1 Second degree perineal laceration during delivery; Z3A.38 38 weeks gestation of pregnancy; Z79.82 Long term (current) use of aspirin; O76 Abnormality in fetal heart rate and rhythm complicating labor and delivery; Z86.16 Personal history of COVID-19; Z67.91 Unspecified blood type, Rh negative; O26.893 Other specified pregnancy related conditions, third trimester
CPT/HCPCS: 59025; 59050; 85025; 86780; 86850; 86900; 86901; 88307; J7030; J7120; A4216; J2405

== ENCOUNTER → 2023-10-02 | Outpatient (CLI) | payer OTHER, SELFPAY ==
[2023-10-02 17:04] LABS: Absolute Lymphocyte Count 2.84 X10^3/uL (0.83-4.51); Absolute Neutrophil Count 5.5 X10^3/uL (2.0-7.7); Basophil# 0.07 X10^3/uL; Basophil% 0.7 % (0-1); Eosinophil# 0.12 X10^3/uL; Eosinophils% 1.3 % (0-5); Hematocrit 32.7 % (37-47); Hemoglobin 10.5 g/dL (12.0-15.0); Lymphocyte # 2.84 X10^3/ul (0.83-4.51); Lymphocyte % 30.2 % (19-41); Mean Corp Hgb Conc 32.1 g/dL (32-36); Mean Corpuscular Hgb 28.1 pg (27.0-32.0); Mean Corpuscular Volume 87.4 fL (81-99); Mean Platelet Vol. 8.9 fl (6.2-12.0); Monocyte# 0.81 X10^3/uL; Monocyte% 8.6 % (0-10); NRBC Flagged by Analyzer 0 % (0-5); Neutrophil # 5.46 X10^3/uL (2.7-7.7); Neutrophil % 58.1 % (47-70); Platelet Count 548 K/mm3 (150-450); RBC Distribution Width CV 13.3 % (11.6-14.6); RBC Distribution Width SD 42.3 fl (35.1-43.9); Red Blood Count 3.74 M/mm3 (4.2-5.4); White Blood Count 9.4 K/mm3 (4.4-11.0)
[2023-10-02 17:24] LABS: T4 Free Direct 1.14 ng/dL (0.76-1.46); Thyroid Stim Hormone (TSH) 1.14 uIU/mL (0.358-3.74)
== END | disposition home or self-care (01) ==
LOC: LAB 16:09
PROVIDERS: PCP Nurse Practitioner Family; Referring Provider Obstetrics & Gynecology; Visit Provider Obstetrics & Gynecology
DX: R68.83 Chills (without fever) (principal)
CPT/HCPCS: 36415; 84439; 84443; 85025

== ENCOUNTER → 2023-11-05 | Outpatient (CLI) | payer OTHER, SELFPAY ==
[2023-11-11 00:07] LABS: HPV APTIMA, High Risk Negative (Negative)
== END | disposition home or self-care (01) ==
LOC: LABSPEC 17:14
PROVIDERS: PCP Nurse Practitioner Family; Referring Provider Obstetrics & Gynecology; Visit Provider Obstetrics & Gynecology
DX: Z12.4 Encounter for screening for malignant neoplasm of cervix (principal)
CPT/HCPCS: 87624; 88175; G0145

== ENCOUNTER 2023-12-08 11:57 | Emergency (ER) | payer OTHER, SELFPAY ==
[2023-12-08 11:57] VITALS: BP 136/91; PULSE 88; RESP 14; TEMP 37.2; O2SAT 98; BMI 30.6
--- NOTE | 2023-12-08 12:32 | CT_ITS ---
STUDY: CT ABDOMEN AND PELVIS WITH CONTRAST REASON FOR EXAM: Female, 33 years old. LLQ pain. Fever. RADIATION DOSAGE (If Supplied By Facility): CTDIvol = ( 15.72 ) mGy, DLP = ( 1128.96 ) mGycm TECHNIQUE: Transaxial images were obtained from the dome of the diaphragm to the symphysis pubis without oral contrast. IV 100mL Isovue-300 was administered. Sagittal and coronal images were reconstructed. Individualized dose optimization techniques were used for this CT. COMPARISON: None. FINDINGS: The visualized lung bases are unremarkable. The visualized portions of the heart are within normal limits. Normal liver. Normal gallbladder and extrahepatic biliary system. Normal spleen. Normal pancreas. Normal bilateral adrenal glands. Normal right kidney. Normal left kidney. Normal visualized stomach. Normal small intestine. There are scattered colonic diverticula consistent with diverticulosis. The appendix is visualized and appears normal. Normal abdominal aorta. Normal inferior vena cava. Normal retroperitoneum. Normal urinary bladder. Small follicles are seen in both ovaries. There is a small umbilical hernia containing fat. Small benign-appearing bilateral inguinal lymph nodes. Normal osseous structures. CT/Abdomen/Pelvis W IV Cont ONLY IMPRESSION: Sigmoid diverticulosis with no radiographic evidence of diverticulitis. Small follicles are seen in both ovaries. Electronically Signed: Pedrito Wong MD at 14:24 EDT ,
[2023-12-08 12:46] LABS: Bacteria 0 SEEN /hpf (None Seen); Mucous, Urine 0 SEEN /hpf (<or=2+); Red Blood Cells-Urine 0 SEEN /hpf (0-5)
[2023-12-08 12:50] LABS: Absolute Lymphocyte Count 1.31 X10^3/uL (0.83-4.51); Absolute Neutrophil Count 8.6 X10^3/uL (2.0-7.7); Basophil# 0.07 X10^3/uL; Basophil% 0.6 % (0-1); Eosinophil# 0.07 X10^3/uL; Eosinophils% 0.6 % (0-5); Hematocrit 40.4 % (37-47); Hemoglobin 13.4 g/dL (12.0-15.0); Lymphocyte # 1.31 X10^3/ul (0.83-4.51); Lymphocyte % 11.6 % (19-41); Mean Corp Hgb Conc 33.2 g/dL (32-36); Mean Corpuscular Hgb 28.4 pg (27.0-32.0); Mean Corpuscular Volume 85.6 fL (81-99); Mean Platelet Vol. 9.6 fl (6.2-12.0); Monocyte# 1.13 X10^3/uL; NRBC Flagged by Analyzer 0 % (0-5); Neutrophil # 8.64 X10^3/uL (2.7-7.7); Neutrophil % 76.8 % (47-70); Platelet Count 354 K/mm3 (150-450); RBC Distribution Width CV 12.3 % (11.6-14.6); RBC Distribution Width SD 38.5 fl (35.1-43.9); Red Blood Count 4.72 M/mm3 (4.2-5.4); White Blood Count 11.3 K/mm3 (4.4-11.0)
[2023-12-08 12:52] LABS: Color, Urine Straw (Yellow); Glucose, Dipstick Normal (Normal); Ketone-Dipstick Negative (Negative); Leukocyte Esterase-Dipstick 25 /ul (Negative); Nitrite-Dipstick Negative (Negative); Occult Blood-Urine Negative /ul (Negative); Protein-Dipstick Negative (Negative); Specific Gravity, Urine 1.005 (1.002-1.030); Urine Bilirubin Dipstick Negative (Negative); Urine Clarity Clear (Clear); Urine Urobilinogen Normal (Normal)
[2023-12-08 13:01] LABS: Internal QC Validated? YES +Cl - CLEAR BKGD; Pregnancy, Serum, hCG Quali. NEGATIVE Negative
[2023-12-08 13:08] LABS: Anion Gap 6 (5-15); BUN 5 mg/dL (7-18); BUN/Creat Ratio 6.2 RATIO (10-20); Chloride 105 mmol/L (98-107); Creatinine, Serum 0.81 mg/dL (0.55-1.02); EST Glomerular Filtration Rate 86 mL/min (>60); Est Glom Filt Rate - Afr Amer 104 mL/min (>60); Estimated Creatinine Clearance 114.62 ml/min; Glucose 89 mg/dL (74-106); Potassium 3.8 mmol/L (3.5-5.1); Sodium Level 138 mmol/L (136-145)
[2023-12-08 13:29] LABS: Squamous Epithelial Cells - UA 0-5 SEEN /hpf (5-10); White Blood Cells 0-5 SEEN /hpf (0-5)
[2023-12-08 13:55] VITALS: BP 124/85; PULSE 74; RESP 16; O2SAT 98
[2023-12-08 15:00] VITALS: BP 125/74; PULSE 72; RESP 16; O2SAT 98
--- NOTE | 2023-12-08 15:11 | EX.ED.DYSGE1 ---
HPI History of Present Illness Chief Complaint: Abd Pain Informant: patient Onset/Context/Timing Onset: Days Context: Gradual Onset Timing: Waxes and wanes Current Severity: Mild Maximum Severity: Moderate Narrative Narrative: Patient presents secondary to left lower quadrant abdominal pain. She is currently 10 weeks from vaginal delivery. She is no longer having any vaginal bleeding. She reported had a fever up to 103 over the weekend and was seen at urgent care. She had a swab for COVID and flu that was negative. She been having some intermittent left lower quadrant pain. She was sent down by her [facility] office today for further workup. She has not had significant urinary symptoms. Her recently was diagnosed with an ear infection and pinkeye. [facility] Medical History Headache Rh negative status during Home Medications ?Medication ?Instructions ?Recorded ?Last Taken ?Type multivitamin no.47-iron fum 27 1 cap PO DAILY 02/24/23 09/23/23 21:00 History mg-folate no.1 1 mg-dha 300 mg capsule (PNV-DHA) sertraline 100 mg tablet 100 mg PO DAILY depression #30 10/02/23 Unknown Rx tabs lactic acid 1.8 %-citric ac 1 1 appful vaginal PER PKG DIR #60 11/05/23 Unknown Rx %-potassium bitartate 0.4 % grams vaginal gel (Phexxi) Allergy/AdvReac Type Severity Reaction Status Date / Time codeine AdvReac Severe Vomiting Verified 12/08/23 12:35 Family History Grandmother Breast cancer Father Graves disease Other Heart disease Surgical History Status post vaginal delivery History of tonsillectomy [place] teeth removed History of placement of ear tubes Social History adopted: No household members: spouse current occupational status: employed 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 current occupational exposures/hazards: No pets and animals: Yes pets and animals: dog(s) history of recent travel: No sexually active: Yes Smoking Status: Never smoker alcohol intake: never substance use type: does not use well-balanced diet: daily or most days caffeine: Yes Type: coffee Number of servings: 1 eating out: 1-3 times/week during the past year weight has: remained stable what type of physical activity do you participate in: walking and yoga frequency: 3-4 times per week duration: 30-45 minutes/day marie/moravian: Religion seatbelt use: always do you feel safe at home: Yes additional social history: Spouse - 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 ROS ROS ED Constitutional Constitutional ED: Reports fever(s); Denies chills Eyes Eyes: Denies change in vision or discharge from eye(s) ENT ENT ED: Denies discharge from eye(s), rhinorrhea or sore throat Cardiovascular Cardiovascular: Denies chest pain or palpitations Respiratory/Chest Respiratory/Chest: Reports cough; Denies dyspnea Gastrointestinal Gastrointestinal: Reports abdominal pain; Denies diarrhea, nausea or vomiting Genitourinary Genitourinary ED: Denies difficulty urinating or dysuria Musculoskeletal Musculoskeletal: Denies back pain or extremity pain Integumentary Denies Abrasions or rash Neurologic Neurologic: Denies headache(s) or weakness Psychiatric Psychiatric: Denies anxiety or depression Allergic/Immunologic Allergic/Immunologic ED: Denies lip swelling or urticaria EXAM Physical Exam Const Vital Signs: 12/08/23 11:57 12/08/23 13:55 12/08/23 15:00 Temperature 98.9 F Temperature Source Temporal Pulse Rate 88 74 72 Respiratory Rate 14 16 16 Blood Pressure 136/91 H 124/85 H 125/74 H Blood Pressure Mean 106 98 91 Pulse Ox 98 98 98 Oxygen Delivery Method Room Air Room Air Room Air 12/08/23 15:16 Temperature 97.2 F L Temperature Source Pulse Rate 71 Respiratory Rate 15 Blood Pressure 128/67 H Blood Pressure Mean 87 Pulse Ox 98 Oxygen Delivery Method Positive well nourished and well developed General Appearance ED: well developed HEENT Reports moist mucous membranes Eyes EOMs intact bilaterally Chest Wall inspection of chest normal and palpation of chest normal Resp normal respiratory effort and clear to auscultation bilaterally Cardio regular rate and regular rhythm GI GI Narrative: Abdomen soft with mild tenderness in the left lower quadrant. No guarding or rebound. No palpable masses. Extremity normal to inspection Neuro oriented x3 and no sensory deficits noted Motor Exam: strength 5/5 throughout Psych mental status grossly normal Skin no rashes or lesions noted MDM MDM MDM Narrative Medical decision making narrative: IV line established. Labwork obtained to evaluate for leukocytosis, anemia, and electrolyte derangement. Urinalysis obtained to evaluate for infection/hematuria. CT scan of the abdomen pelvis with IV contrast obtained to evaluate for potential renal stone or diverticulitis. Patient declined anything for pain while the emergency room. 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 Labs: Laboratory Results - last 24 hr 12/08/23 12/08/23 11:50 12:10 WBC 11.3 H RBC 4.72 Hgb 13.4 Hct 40.4 MCV 85.6 MCH 28.4 MCHC 33.2 RDW Std Deviation 38.5 RDW Coeff of Linnea 12.3 Plt Count 354 MPV 9.6 Immature Gran % (Auto) 0.400 Neut % (Auto) 76.8 H Lymph % (Auto) 11.6 L Glenn % (Auto) 10.0 Eos % (Auto) 0.6 Baso % (Auto) 0.6 Absolute Neuts (auto) 8.6 H Absolute Lymphs (auto) 1.31 Nucleated RBC % 0 Sodium 138 Potassium 3.8 Chloride 105 Carbon Dioxide 27.0 Anion Gap 6 BUN 5 L Creatinine 0.81 Estim Creat Clear Calc 114.62 Est GFR (MDRD) Af Amer 104 Est GFR (MDRD) Non-Af 86 BUN/Creatinine Ratio 6.2 L Glucose 89 Calcium 10.0 Serum , Qual NEGATIVE Urine Color Straw Urine Clarity Clear Urine pH 6.0 Ur Specific Carpenter 1.005 Urine Protein Negative Urine Glucose (UA) Normal Urine Ketones Negative Urine Occult Blood Negative Urine Nitrite Negative Urine Bilirubin Negative Urine Urobilinogen Normal Ur Leukocyte Esterase 25 H Urine RBC 0 SEEN Urine WBC 0-5 SEEN Ur Squamous Epith Cells 0-5 SEEN Urine Bacteria 0 SEEN Urine Mucus 0 SEEN Radiography Diagnostic Testing: Clinical Impression(s) from Imaging Studies Abdomen/Pelvis CT 12/08/23 12:32 IMPRESSION: Sigmoid diverticulosis with no radiographic evidence of diverticulitis. Small follicles are seen in both ovaries. Electronically Signed: Pedrito Wong MD at 14:24 EDT , Treatment and Re-Evaluation :: CBC reveals white count slightly elevated 11.3 with 76% neutrophils. Hemoglobin is normal at 13.4. Chemistry studies are unremarkable with normal renal function. test negative. Urinalysis reveals no evidence of infection. CT scan of the abdomen pelvis reveals sigmoid diverticulosis without evidence of diverticulitis. Small follicles are seen in the ovaries. On repeat evaluation patient resting comfortably. Test results are discussed with her. With her having recent viral type symptoms I do suspect she may have viral illness causing her reported fever. Workup at this time is unremarkable and patient will continue supportive care at home. She is comfortable to plan and return instructions have been reviewed. Discharge Plan Triage Chief Complaint: Abd Pain ED Provider: Lizzeth Fatima Dx/Rx/DC Orders Clinical Impression: Abdominal pain Instructions: ED Abdominal Pain Unkn Cause Fem Prescriptions: No Action PNV-DHA 27 mg iron-1 mg -300 mg capsule 1 cap PO DAILY Phexxi 1.8-1-0.4 % gel 1 appful vaginal PER PKG DIR Qty: 60 12RF Rx Instructions: insert 1 applicatorful vaginally within 1 hour before each act of vaginal intercourse sertraline 100 mg tablet 100 mg PO DAILY Qty: 30 12RF Primary Care Provider: Noemi Dallas NP Referrals: Ivette Cornell MD [Med Staff - Active Staff] - As Needed Noemi Dallas NP, REIMBURSEMENT COORDINATOR-C [Primary Care Provider] - 1 Week if not improving Print Language: Peruvian Disposition Disposition: Home, Self Care Discharge Date/Time: 12/08/23 15:17
[2023-12-08 15:16] VITALS: BP 128/67; PULSE 71; RESP 15; TEMP 36.2; O2SAT 98
== END 2023-12-08 15:17 | disposition home or self-care (01) ==
PROVIDERS: Emergency Provider Emergency Medicine; PCP Nurse Practitioner Family; Visit Provider Emergency Medicine
DX: R10.32 Left lower quadrant pain (principal)
CPT/HCPCS: 74177; 80048; 81001; 84703; 85025; 87086; 87088; 99282; Q9967

== ENCOUNTER → 2024-07-08 | Outpatient (CLI) | payer OTHER, SELFPAY ==
--- NOTE | 2024-07-08 13:07 | US_ITS ---
HISTORY: viability, spotting in early . LMP 05/19/2024. TECHNIQUE: [No pelvic ultrasound was performed. 83 images. COMPARISON: CT 12/08/2023. FINDINGS: UTERUS: 9.8 x 6.2 x 5.2 cm. Cervix closed. RIGHT OVARY: 1.7 x 1.9 x 3.1 cm. No adnexal masses. LEFT OVARY: 2.1 x 2.5 x 4.2 cm. 2.1 cm corpus luteal cyst. FREE FLUID: None. INTRAUTERINE GESTATIONAL SAC: Single. Mean sac diameter 2 cm corresponding to 6 weeks 6 days. YOLK SAC: 3 mm. POLE: [place] rump length 5 mm corresponding to 6 weeks 3 days. ESTIMATED DELIVERY DATE: 02/26/2025. HEART MOTION: 116 bpm. US/Transvaginal w/Preg US IMPRESSION: Intrauterine with an estimated gestational age of 6 weeks 3 days and heart motion demonstrated. Small left ovarian corpus luteal cyst. Electronically Signed: Monique Montez MD at 15:02 EST ,
== END | disposition home or self-care (01) ==
LOC: OPUS 13:06
PROVIDERS: PCP Nurse Practitioner Family; Referring Provider Obstetrics & Gynecology; Visit Provider Obstetrics & Gynecology
DX: O26.851 Spotting complicating pregnancy, first trimester (principal); Z3A.01 Less than 8 weeks gestation of pregnancy
CPT/HCPCS: 76817

== ENCOUNTER → 2024-07-28 | Outpatient (CLI) | payer OTHER, SELFPAY ==
[2024-07-28 10:56] LABS: Absolute Lymphocyte Count 1.93 X10^3/uL (0.83-4.51); Absolute Neutrophil Count 5.1 X10^3/uL (2.0-7.7); Basophil# 0.03 X10^3/uL; Basophil% 0.4 % (0-1); Eosinophil# 0.06 X10^3/uL; Eosinophils% 0.8 % (0-5); Hematocrit 39.6 % (37-47); Hemoglobin 13.4 g/dL (12.0-15.0); Lymphocyte # 1.93 X10^3/ul (0.83-4.51); Lymphocyte % 25.5 % (19-41); Mean Corp Hgb Conc 33.8 g/dL (32-36); Mean Corpuscular Volume 82.8 fL (81-99); Monocyte# 0.39 X10^3/uL; Monocyte% 5.2 % (0-10); NRBC Flagged by Analyzer 0 % (0-5); Neutrophil # 5.13 X10^3/uL (2.7-7.7); Neutrophil % 67.8 % (47-70); Platelet Count 321 K/mm3 (150-450); RBC Distribution Width CV 12.5 % (11.6-14.6); Red Blood Count 4.78 M/mm3 (4.2-5.4); White Blood Count 7.6 K/mm3 (4.4-11.0)
[2024-07-28 12:03] LABS: HIV - WCH Non-Reactive (Nonreactive); Hepatitis B Surface Antigen Non-Reactive (Nonreactive); Hepatitis C Antibody Non-Reactive (Nonreactive); Rubella IgG Reactive (Nonreactive); Syphilis Antibodies Non-reactive
[2024-07-28 19:38] LABS: Hemoglobin A1c 5.2 % (3.8-5.6)
[2024-07-30 06:08] LABS: Chlamydia By Nucleic Acid AMP Negative (Negative); Gonococcus By Nucleic Acid AMP Negative (Negative)
== END | disposition home or self-care (01) ==
LOC: BWCLAB 09:40
PROVIDERS: PCP Nurse Practitioner Family; Referring Provider Advanced Practice Midwife; Visit Provider Advanced Practice Midwife
DX: Z34.90 Encounter for supervision of normal pregnancy, unspecified, unspecified trimester (principal)
CPT/HCPCS: 36415; 83036; 85025; 86703; 86762; 86780; 86803; 86850; 86900; 86901; 87086; 87340; 87491; 87591

== ENCOUNTER 2025-02-14 10:44 | Outpatient (CLI) | payer OTHER, SELFPAY ==
[2025-02-14 10:53] VITALS: BMI 33.1
[2025-02-14 11:00] VITALS: RESP 18; TEMP 36.4
[2025-02-14 11:02] VITALS: PULSE 102; O2SAT 98
[2025-02-14 11:03] VITALS: BP 134/87; PULSE 97
[2025-02-14 11:16] VITALS: BP 131/81; PULSE 96
[2025-02-14 11:48] LABS: ROM Internal Control Test YES-OK TO RESULT pt. (Internal QC); ROM Patient Test Negative (Negative); Record Kit Lot#, ROM+ 962302
--- NOTE | 2025-02-14 17:21 | OB.TRI.HP_ITS ---
HPI - General General Date of Admission: 02/14/25 Date of Service: 02/14/25 Chief Complaint: contractions HPI Narrative JUWAN SHIPLEY, is a 34 F who presents 2 para 1 who presents at 38-5/7 weeks gestation complaining contractions. Maternal Data Information Final RICHARD: 02/23/25 Gestational age: 38 5/7 [facility] Medical History Rh negative status during Viral illness Chills Abdominal pain Encounter for preconception consultation Spotting affecting Headache Home Medications ?Medication ?Instructions ?Recorded ?Last Taken ?Type multivitamin no.47-iron fum 27 1 cap PO DAILY pregnanc y 02/24/23 02/13/25 21:30 History mg-folate no.1 1 mg-dha 300 mg 1 cap capsule (PNV-DHA) sertraline 100 mg tablet 100 mg PO DAILY depression #30 10/02/23 02/13/25 21:30 Rx tabs 100 mg aspirin 81 mg chewable tablet 1 tab PO DAILY 02/14/25 02/13/25 21:30 History (Aspirin Childrens) 1 TAB Allergy/AdvReac Type Severity Reaction Status Date / Time Sulfa (Sulfonamide Allergy Unknown PT UNSURE Verified 02/14/25 11:18 Antibiotics) OF REACTION codeine AdvReac Severe Vomiting Verified 10/20/24 09:45 Family History Grandmother Breast cancer Father Graves disease Other Heart disease Surgical History Status post vaginal delivery History of tonsillectomy [place] teeth removed History of placement of ear tubes Social History adopted: No household members: spouse and children number of children: 1 current occupational status: employed 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 current occupational exposures/hazards: No pets and animals: No history of recent travel: No sexually active: Yes Smoking Status: Never smoker alcohol intake: never substance use type: does not use well-balanced diet: daily or most days caffeine: Yes Type: coffee Number of servings: 1 eating out: 1-3 times/week during the past year weight has: decreased > 10 lbs what type of physical activity do you participate in: walking and yoga frequency: 3-4 times per week duration: 30-45 minutes/day marie/zoroastrianism: Episcopalian seatbelt use: always do you feel safe at home: Yes 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 Date Name GA/Weeks Outcome Route Bth Weight Gen Labor Lgth Anesthesia Del Locatn Provider FOB 09/25/23 Víctor 38 live - full term vacuum 7#10 Male epid ural H Radha Gross Delivery Date: 09/25/23 Last Updated by: Estrellita Chávez Vaccum delivery 2nd degree tear NST FHR Rate Baby A Baseline: 130 Variability:: Moderate Accelerations:: 15 x 15 Decelerations:: Variable NST Reactive:: Yes FHR Category:: Category I (for > 20 min before discharge) Uterine Activity:: ctxs q2-4 min Assessment & Plan (1) Obesity affecting : QUALIFIERS: Trimester: second trimester Obesity type affecting : unspecified obesity Qualified Code(s): O99.212 - Obesity complicating , second trimester COMMENT: BMI 31.2; HgBA1C ordered (2) AMA (advanced maternal age) multigravida 35+: QUALIFIERS: Trimester: second trimester Qualified Code(s): O09.522 - Supervision of elderly multigravida, second trimester COMMENT: declined genetic testing. growth US 36 weeks. (3) Supervision of high-risk : QUALIFIERS: Trimester: second trimester Qualified Code(s): O09.92 - Supervision of high risk , unspecified, second trimester COMMENT: PRR, , RICHARD 02/23/25, PC: Víctor, : Renato (4) 38 weeks gestation of : (5) False labor after 37 completed weeks of gestation: PLAN: Plan No evidence of active labor. Patient is comfortable being discharged home and returning should the contractions increase in intensity or with rupture of membranes.
== END 2025-02-14 13:35 | disposition home or self-care (01) ==
LOC: WPOUT 10:45 → WP 10:46
PROVIDERS: PCP Nurse Practitioner Family; Referring Provider Obstetrics & Gynecology; Visit Provider Obstetrics & Gynecology
DX: O47.1 False labor at or after 37 completed weeks of gestation (principal); Z3A.38 38 weeks gestation of pregnancy
CPT/HCPCS: 59025; 59050; 84112; 99221; G0378

== ENCOUNTER 2025-02-16 11:15 | Outpatient (CLI) | payer OTHER, SELFPAY ==
[2025-02-16 11:22] VITALS: BP 130/79; PULSE 91; RESP 18; TEMP 36.8
[2025-02-16 11:26] VITALS: BP 126/76; PULSE 90
[2025-02-16 11:29] VITALS: BMI 33.1
--- NOTE | 2025-02-16 20:19 | OB.TRI.HP_ITS ---
HPI - General General Date of Admission: 02/16/25 Date of Service: 02/16/25 Chief Complaint: DFM and contractions HPI Narrative JUWAN SHIPLEY, is a 34 F who presents intermittent decreased movement and frequent contractions. No bleeding or leaking. Sent from office for prolonged monitoring. noted in triage with reactive tracing. Frequent contractions with no cervical change. Patient scheduled for IOL Maternal Data Information Final RICHARD: 02/23/25 Gestational age: 39 PFSH PFSH Medical History (Updated 02/16/25 @ 20:[address] Lizzeth Ramos MD) Low lying placenta, antepartum Rh negative status during Viral illness Chills Abdominal pain Encounter for preconception consultation Spotting affecting Headache Home Medications ?Medication ?Instructions ?Recorded ?Last Taken ?Type multivitamin no.47-iron fum 27 1 cap PO DAILY pregnanc y 02/24/23 02/13/25 21:30 History mg-folate no.1 1 mg-dha 300 mg 1 cap capsule (PNV-DHA) sertraline 100 mg tablet 100 mg PO DAILY depression #30 10/02/23 02/13/25 21:30 Rx tabs 100 mg aspirin 81 mg chewable tablet 1 tab PO DAILY 02/14/25 02/13/25 21:30 History (Aspirin Childrens) 1 TAB Allergy/AdvReac Type Severity Reaction Status Date / Time Sulfa (Sulfonamide Allergy Unknown PT UNSURE Verified 02/14/25 11:18 Antibiotics) OF REACTION codeine AdvReac Severe Vomiting Verified 10/20/24 09:45 Family History Grandmother Breast cancer Father Graves disease Other Heart disease Surgical History Status post vaginal delivery History of tonsillectomy [place] teeth removed History of placement of ear tubes Social History adopted: No household members: spouse and children number of children: 1 current occupational status: employed 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 current occupational exposures/hazards: No pets and animals: No history of recent travel: No sexually active: Yes Smoking Status: Never smoker alcohol intake: never substance use type: does not use well-balanced diet: daily or most days caffeine: Yes Type: coffee Number of servings: 1 eating out: 1-3 times/week during the past year weight has: decreased > 10 lbs what type of physical activity do you participate in: walking and yoga frequency: 3-4 times per week duration: 30-45 minutes/day marie/buddhist: Corey seatbelt use: always do you feel safe at home: Yes 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 Date Name GA/Weeks Outcome Route Bth Weight Infant Gen Labor Lgth Anesthesia Del Locatn Provider FOB 09/25/23 Víctor 38 live - full term vacuum 7#10 Male epid ural [facility] Radha Gross Delivery Date: 09/25/23 Last Updated by: Estrellita Chávez Vaccum delivery 2nd degree tear NST FHR Rate Baby A Variability:: Moderate Accelerations:: 15 x 15 Decelerations:: None NST Reactive:: Yes Uterine Activity:: q3 Assessment & Plan (1) AMA (advanced maternal age) multigravida 35+: QUALIFIERS: Trimester: second trimester Qualified Code(s): O09.522 - Supervision of elderly multigravida, second trimester COMMENT: declined genetic testing. growth US 36 weeks. (2) Decreased movement: QUALIFIERS: Fetus number: single or unspecified fetus Trimester: third trimester Qualified Code(s): O36.8130 - Decreased movements, third trimester, not applicable or unspecified (3) 39 weeks gestation of : PLAN: Plan IOL scheduled for tomorrow
== END 2025-02-16 13:56 | disposition home or self-care (01) ==
LOC: WPOUT 11:19 → WP 11:20
PROVIDERS: PCP Nurse Practitioner Family; Referring Provider Obstetrics & Gynecology; Visit Provider Obstetrics & Gynecology
DX: O36.8130 Decreased fetal movements, third trimester, not applicable or unspecified (principal); Z3A.39 39 weeks gestation of pregnancy
CPT/HCPCS: 59025; 59050; 99221; G0378

== ENCOUNTER 2025-02-17 07:17 | Inpatient (IN) | payer OTHER, SELFPAY ==
[2025-02-17] VITALS (75 sets, daily range): BP systolic 116–154; BP diastolic 62–90; PULSE 80–107; RESP 16–18; TEMP 35.9–37.6; O2SAT 91–100; BMI 33.1
--- OUTSIDE RECORDS SUMMARY | 2025-02-17 06:33 | XMS RPT_ITS | CCD ---
Author Organization [facility] Care Team Providers Care Concreter Name Role Phone Tizzano, Cori P Unavailable Unavailable Tizzano, Cori P Unavailable Unavailable No Doctor Assigned, Nodr Unavailable Unavail able Tizzano, Cori P Unavailable Unavailable Tizzano, Cori P Unavailable Unavailable No Doctor Assigned, Nodr Unavailable Unavail able Tizzano, Cori P Unavailable Unavailable No Doctor Assigned, Nodr Unavailable Unavail able Mervin, Clarice D Unavailable Unavailable Mervin, Clarice D Unavailable Unavailable Mervin, Clarice D Unavailable Unavailable Mervin, Clarice D Unavailable Unavailable [place], Clarice D Unavailable Unavailable [place], Clarice D Unavailable Unavailable [place], Clarice D Unavailable Unavailable Mervin, Clarice D Unavailable Unavailable [place], Clarice D Unavailable Unavailable Mervin, Clarice D Unavailable Unavailable Mervin, Clarice D Unavailable Unavailable [place], Clarice D Unavailable Unavailable [place], Clarice D Unavailable Unavailable Mervin, Clarice D Unavailable Unavailable [place], Clarice D Unavailable Unavailable Mervin, Clarice D Unavailable Unavailable Mervin, Clarice D Unavailable Unavailable Mervin, Clarice D Unavailable Unavailable Ezike, Duane A Unavailable Unavailable Ezike, Duane A Unavailable Unavailable Mervin, Clarice D Unavailable Unavailable Shakir, Guru W Unavailable Unavailable Shakir, Guru W Unavailable Unavailable Mervin, Clarice D Unavailable Unavailable Mervin, Clarice D Unavailable Unavailable [place], Clarice D Unavailable Unavailable [place], Clarice D Unavailable Unavailable Mervin, Clarice D Unavailable Unavailable [place], Clarice D Unavailable Unavailable Tizzano, Cori P Unavailable Unavailable Mervin, Clarice D Unavailable Unavailable Tizzano, Cori P Unavailable Unavailable Tizzano, Cori P Unavailable Unavailable [place], Clarice D Unavailable Unavailable Tizzano, Cori P Unavailable Unavailable [place], Clarice D Unavailable Unavailable Tizzano, Cori P Unavailable Unavailable [place], Clarice D Unavailable Unavailable Tizzano, Cori P Unavailable Unavailable Mervin, Clarice D Unavailable Unavailable Tizzano, Cori P Unavailable Unavailable Mervin, Clarice D Unavailable Unavailable GUEVARA GILLIAM Unavailable Unavailable MERVIN, CLARICE D. Unavailable Unavailable Alie 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, Noemi Primary Care Provider AlieLuizahy L Unavailable Unavailable Unavailable DelanoJose L Unavailable Free, Text Entry Unavailable Unavailable AlieLuizahy L Unavailable NewtonJose L Unavailable Unavailable Bryce Jaquez Unavailable Unavailable Dr. Ivette Cornell Attending Provider [phone] Alie TIRE SORTER, TIRE SORTER-C Noemi Primary Care Provider [phone] Alie TIRE SORTER, TIRE SORTER-C Noemi Referring Provider [phone] Alie TIRE SORTER, TIRE SORTER-C Noemi Primary Care Provider [phone] Alie TIRE SORTER, TIRE SORTER-C Noemi Referring Provider [phone] Dr. Ivette Cornell Attending Provider [phone] SUZANNE Marinelli Attending Provider [phone] Tomi CHAMBERLAIN, TIRE SORTER-C Batsheva Attending Provider [phone] Alie TIRE SORTER, TIRE SORTER-C Noemi Primary Care Provider [phone] Aile TIRE SORTER, TIRE SORTER-C Noemi Referring Provider [phone] Dr. Ivette Cornell Attending Provider [phone] Dr. Lizzeth Abarca Attending Provider [phone] SUZANNE Peña Attending Provider SUZANNE Peña Referring Provider SUZANNE Peña Other Provider Alie TIRE SORTER, TIRE SORTER-C Noemi Referring Provider [phone] Alie TIRE SORTER, TIRE SORTER-C Noemi Primary Care Provider [phone] Tomi CHAMBERLAIN, TIRE SORTER-C Batsheva Attending Provider [phone] SUZANNE Marinelli Attending Provider [phone] Alie TIRE SORTER, TIRE SORTER-C Noemi Referring Provider [phone] Ivette Cornell Attending Provider [phone] Dr. Lizzeth Abarca Attending Provider [phone] Alie TIRE SORTER, TIRE SORTER-C Noemi Primary Care Provider [phone] Tomi TIRE SORTER, TIRE SORTER-C Batsheva Attending Provider [phone] SUZANNE Peña Attending Provider Casey, SUZANNE Rootsay Referring Provider Casey, SUZANNE Alma Rosa Other Provider SUZANNE Marinelli Attending Provider [phone] Dr. Ivette Cornell Admit Provider [phone] Dr. Ivette Cornell Referring Provider [phone] Dr. Ivette Cornell Other Provider [phone] Dr. Lizzeth Abarca Admit Provider Dr. Lizzeth Abarca Other Provider Alie TIRE SORTER, TIRE SORTER-C Noemi Referring Provider [phone] Dr. Ivette Cornell Attending Provider [phone] Marco Antonio TIRE SORTER, TIRE SORTER-C Fauzia Attending Provider [phone] Alie TIRE SORTER, TIRE SORTER-C Noemi Primary Care Provider [phone] Alie TIRE SORTER, TIRE SORTER-C Noemi Referring Provider [phone] Dr. Lizzeth Abarca Attending Provider [phone] Unavailable Primary Care Provider UnavailRAZ Thakkar Attending Unavailable JESUS MARINELLI Referring Unavailable ALIE, NOEMI L Primary Care Unavailable HARLEY SEO Attending Unavailable JESUS MARINELLI Referring Unavailable ALIE, NOEMI L Primary Care Unavailable PAULINE KING Attending Unavailable PAULINE KING Referring Unavailable PRABHA QUEVEDO Attending Unavailable PAULINE KING Referring Unavailable LIZZETH RAMOS Attending Unavailable SHADE ALEXANDER Attending Unavailable CHANDA HUFFMAN Attending Unavail able PRABHA QUEVEDO Attending Unavailable PAULINE NORWOOD Attending Unavailable SHADE ALEXANDER Attending Unavailable PRABHA QUEVEDO Referring Unavailable PRABHA QUEVEDO Referring Unavailable LIZZETH RAMOS Attending Unavailable Alie TIRE SORTER-C, Noemi Primary Care Provider [phone] Alie TIRE SORTER-C, Noemi Referring Provider [phone] Radha Rodriguez DO, Dr. Moreau Attending Provider Oliver REYNOLDS, Dr. Scruggs Attending Provider Oliver REYNOLDS, Dr. Scruggs Referring Provider Richard REYNOLDS, Dr. Moreau Attending Provider Richard REYNOLDS, Dr. Moreau Referring Provider [phone] Jesus Marinelli Attending Unavailable Alie TIRE SORTER, Noemi Primary Care Unavailable Alie TIRE SORTER, Noemi Referring Unavailable Ivette Cornell Attending Unavailable Alie TIRE SORTER, Noemi Primary Care Unavailable Alie TIRE SORTER, Noemi Referring Unavailable Alie TIRE SORTER, Noemi Primary Care Unavailable Alie TIRE SORTER, Noemi Referring Unavailable [place] TIRE SORTER, Batsheva Attending Unavailable Alie TIRE SORTER, Noemi Primary Care Unavailable Radha Jackson Attending Unavailable Alie TIRE SORTER, Noemi Primary Care Unavailable Alie TIRE SORTER, Noemi Referring Unavailable Lizzeth Abarca Attending UnavailShade Crenshaw Attending Unavailable Shade Alexander Referring Unavailable Alie TIRE SORTER, Noemi Primary Care Unavailable Alie TIRE SORTER, Noemi Primary Care Unavailable Lizzeth Abarca Admitting UnavailLizzeth Escobar Attending UnavailIvette Woods Attending Unavailable Ivette Cornell Referring Unavailable Alie TIRE SORTER, Noemi Primary Care Unavailable Alie TIRE SORTER, Noemi Primary Care Unavailable Jesus Marinelli Attending Unavailable Jesus Marinelli Referring Unavailable Alie TIRE SORTER, Noemi Primary Care Unavailable Lizzeth Ramos Attending Unavailable Lizzeth Ramos Referring Unavailable Allergies Allergy Classification Reported Allergen(s) Allergy Type Date of Onset Reaction(s) Facility Opioid Agonists (7 sources) Codeine; Translations: [codeine] Drug Allergy 1 Nausea and Vomiting [facility] Sulfonamides (antibiotic) (4 sources) Sulfonamides (Antibiotic); Translations: [Sulfa Drugs] Drug Allergy Unknown [facility] Work Phone: (20 sources) codeine; Translations: [codeine] Drug Allergy 3 Vomiting [facility] Repository (9 sources) Sulfonamides (Antibiotic); Translations: [sulfa drugs] Propensity to adverse reactions to drug (disorder) AOF, Unknown [facility] Repository (14 sources) Sulfonamides (Antibiotic); Translations: [SULFA (SULFONAMIDE ANTIBIOTICS)] Propensity to adverse reactions 8 [facility] Work Phone: (2 sources) Sulfonamides (Antibiotic) Allergy to substance 5 PT UNSURE OF REACTION [facility] (1 source) Sulfonamides (Antibiotic) Drug allergy (disorder) 5 [facility] Repository Medications Current Medications Medication Drug Class(es) Dates Sig (Normalized) Sig (Original) amoxicillin 875 mg oral tablet (2 sources) Penicillin-class Antibacterial Start: 12-07-2024 End: 12-14-2024 take 1 tablet by mouth twice daily amoxicillin (AMOXIL) 875 mg tablet Take 1 tablet by mouth two times a day for 7 days. 14 tablet 12/07/2024 12/14/2024 Active aspirin 81 mg chewable tablet (20 sources) Platelet Aggregation Inhibitor, Nonsteroidal Anti-inflammatory Drug Start: 02-14-2025 take 1 tablet by mouth once daily Aspirin (Aspirin Childrens) 81 mg tablet,chewable Active 1 {tbl} PO DAILY February 14, 2025 12:00am Start: 11-15-2024 End: 11-16-2024 take 1 tablet by mouth once daily aspirin, enteric coated (ECOTRIN LOW STRENGTH) 81 mg EC tablet Take 1 tablet by mouth once daily. 90 tablet 3 11/16/2024 Active Start: 09-24-2023 End: 09-28-2023 take 1 tablet by mouth once daily Aspirin (Adult Aspirin Regimen) 81 mg tablet,delayed release (DR/EC) Discontinued 81 mg PO DAILY September 24, 2023 12:00am September 28, 2023 1:38pm hx covid Multivit 49-Rgre-Dbkowb 1-Dh a (Pnv-Dha) 27 mg iron-1 mg -300 mg capsule (15 sources) Start: 02-24-2023 Multivit 47-Ir on-Folate 1-Dha (Pnv-Dha) 27 mg iron-1 mg -300 mg capsule Active 1 NMA PO DAILY February 24, 2023 12:00am Start: 02-24-2023 take 1 capsule by mo [facility] once daily Multivit 32-Jvwx-Gmdudw 1-Dha (Pnv-Dha) 27 mg iron-1 mg -300 mg capsule Active 1 CAP PO DAILY February 24, 2023 12:00am Start: 02-24-2023 take 1 capsule by mo [facility] once daily Multivit 74-Xfwa-Jcfvjr 1-Dha (Pnv-Dha) 27 mg iron-1 mg -300 mg capsule Active 1 CAP PO DAILY February 23, 2023 11:00pm Start: 02-24-2023 Multivit 47-Ir on-Folate 1-Dha (Pnv-Dha) 27 mg iron-1 mg -300 mg capsule Active 1 CAP PO February 24, 2023 12:00am Start: 02-24-2023 Multivit 47-Ir on-Folate 1-Dha (Pnv-Dha) 27 mg iron-1 mg -300 mg capsule Active CAP PO February 24, 2023 12:00am PNV no.95/ferrous fum/folic ac ( ORAL) (13 sources) take 1 tablet by mouth once daily before mealtime PNV no.95/ferrous fum/folic ac ( ORAL) Take 1 tablet by mouth once daily. Active rimegepant 75 mg disintegrating oral tablet (1 source) Start: 12-19-19 21 take 1 tablet by mouth two times weekly for headache Rimegepant Sulfate (Nurtec) 75 MG Tab Dispersible Take 75 mg by mouth See admin instructions. Take 1 for prevention of headache. 2 times a week 4 tablet 0 12/18/2020 Active sertraline 100 mg oral tablet (20 sources) Serotonin Reuptake Inhibitor Start: 10-02-19 24 take 1 tablet by mouth once daily Sertraline 100 mg tablet Active 100 mg PO DAILY 11 07October 02, 2023 3:42pm depression Start: 12-18-2022 End: 10-02-2023 Sertraline (Zoloft) 50 mg ta blet Discontinued 75 mg PO DAILY December 18, 2022 12:00am October 02, 2023 3:47pm depression Start: 01-11-2021 Sertraline HCl - 50 MG Oral Tablet TAKE 1 AND 1/2 TABLETS DAILY. Quantity: 45 Refills: 6 Ordered: 11-Jan-2021 DO Start : 11-Jan-2021 Active Start: 10-17-2020 sertraline 100 MG tablet Take 75 mg by mouth daily. 0 10/17/2020 Active Start: 07-26-2020 End: 01-18-2021 take 1 tablet by mouth once daily Sertraline HCl - 100 MG Oral Tablet TAKE 1 TABLET DAILY. Quantity: 30 Refills: 5 Ordered: 27-Sep-2020 DO Start : 26-Jul-2020 End : 18-Jan-2021 Complete take 1.5 tablets by mouth once daily sertraline 50 mg oral tablet ; 1.5 tab(s) orally once a day Quantity: 0 Refills: 0 Ordered: 01-Aug-2022 Rusiska, Sandy Generic Substitution Allowed verapamil hydrochloride 40 mg oral tablet (3 sources) Calcium Channel Rex Start: 11-02-2020 verapamil 40 MG tablet 1/2 po x 7 days then 1/2 po bid 30 tablet 1 11/02/2020 Active Completed/Discontinued Medications Medication Drug Class(es) Dates Sig (Normalized) Sig (Original) azithromycin 250 mg oral tablet (3 sources) Macrolide Antimicrobial Start: 11-26-2021 End: 01-20-2022 Azithromycin 250 MG Oral Tablet TAKE 2 TABLETS ON DAY 1 THEN TAKE 1 TABLET A DAY FOR 4 DAYS. Quantity: 1 Refills: 0 Ordered: 26-Nov-2021 Jose Chou Start : 26-Nov-2021 End : 20-Jan-2022 Complete busPIRone hydrochloride 5 mg oral tablet (4 sources) Start: 10-02-2023 End: 11-05-2023 take 1 tablet by mouth twice daily Buspirone 5 mg tablet Discontinued 5 mg PO TWICE A DAY 60 October 02, 2023 12:00am November 05, 2023 3:28pm cholecalciferol 0.05 mg oral capsule (2 sources) Vitamin D Start: 01-20-2022 take 1 capsule by mouth once daily QC Vitamin D3 50 MCG (1999 UT) Oral Capsule TAKE 1 CAPSULE Daily Quantity: 0 Refills: 0 Ordered: 20-Jan-2022 Jose Chou Start : 20-Jan-2022 Active citric acid 0.01 mg/mg / lactic acid 0.018 mg/mg / potassium bitartrate 0.004 mg/mg vaginal gel (3 sources) Calculi Dissolution Agent, Anti-coagulant Start: 11-05-2023 End: 07-15-2024 Lactic Tbyc-Cdhllr-Cxqgbr ium (Phexxi) 1.8-1-0.4 % gel Discontinued 1 NMA VAGINAL per package directions 60 November 05, 2023 12:00am July 15, 2024 9:30am insert 1 applicatorful vaginally within 1 hour before each act of vaginal intercourse Start: 11-05-2023 Lactic Acid-Ci tric-Potassium (Phexxi) 1.8-1-0.4 % gel Active 1 APPFUL VAGINAL per package directions November 05, 2023 12:00am insert 1 applicatorful vaginally within 1 hour before each act of vaginal intercourse COMPOUNDED PRESCRIPTION (1 source) Start: 06-20-2008 End: 11-16-2024 COMPOUNDED PRESCRIPTION pristig 50 mg. take one daily 0 06/20/2008 11/16/2024 Discontinued (Discontinued by Patient) dextromethorphan hydrobromide 20 mg / guaiFENesin 400 mg oral tablet (3 sources) Uncompetitive G-rjjwzv-W-aspartat e Receptor Antagonist, Sigma-1 Agonist Start: 11-26-2021 End: 01-20-2022 take 1 tablet by mouth every four hours as needed Dextromethorphan-g uaiFENesin 20-400 MG Oral Tablet TAKE 1 TABLET EVERY 4 HOURS NEEDED. Quantity: 28 Refills: 0 Ordered: 26-Nov-2021 Jose Chou Start : 26-Nov-2021 End : 20-Jan-2022 Complete eszopiclone 3 mg oral tablet (1 source) Start: 06-20-2008 End: 11-16-2024 eszopiclone(LUNEST A 3 MG TAB) take one daily 0 06/20/2008 11/16/2024 Discontinued (Discontinued by Patient) hydrOXYzine hydrochloride 10 mg oral tablet (12 sources) Antihistamine Start: 07-26-2020 take 1-2 tablets by mouth every four to six hours as needed hydrOXYzine HCl - 10 MG Oral Tablet 1-2 tabs every 4-6 hours prn Quantity: 40 Refills: 1 Ordered: 18-Jan-2021 Ross GENE-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Gema Start : 26-Jul-2020 Active levonorgestrel 0.204330 mg/hr intrauterine system (6 sources) Progestin, Progestin-containin g Intrauterine Device Mirena (52 MG) 20 MCG/24HR Intrauterine Intrauterine Device Quantity: 0 Refills: 0 Ordered: 24-Oct-2020 DO Active LORazepam 1 mg oral tablet (1 source) Benzodiazepine Start: 06-20-2008 End: 11-16-2024 lorazepam(ATIVAN 1 MG TAB) Take one(1) tablet every day 0 06/20/2008 11/16/2024 Discontinued (Discontinued by Patient) Magnesium (4 sources) Magnesium TABS Quantity: 0 Refills: 0 Ordered: 18-Jan-2021 DO Active metoclopramide 10 mg oral tablet (11 sources) Dopamine-2 Receptor Antagonist Start: 04-24-2023 End: 08-03-2023 take 1 tablet by mouth three times daily Metoclopramide Hcl (Reglan) 10 mg tablet Discontinued 10 mg PO THREE TIMES A DAY April 24, 2023 12:00am August 03, 2023 6:02pm nausea naratriptan 2.5 mg oral tablet (5 sources) Serotonin-1b and Serotonin-1d Receptor Agonist Start: 12-18-2020 Naratriptan HCl - 2.5 MG Oral Tablet Quantity: 9 Refills: 0 Ordered: 18-Dec-2020 DO Start : 18-Dec-2020 Active Start: 12-18-2020 naratriptan (A merge) 2.5 MG tablet 1 po prn migraine max 5mg/day; may repeat in 4 hr x1 8 tablet 4 12/18/2020 Active ondansetron 4 mg disintegrating oral tablet (20 sources) Serotonin-3 Receptor Antagonist Start: 06-30-2024 End: 02-14-2025 take 1 tablet by mouth every eight hours for nausea and vomiting Ondansetron 4 mg tablet,disintegrating Discontinued 4 mg PO Q8H as needed for nausea and vomiting 09 10June 30, 2024 1:00am February 14, 2025 11:19am do not take at same time as other antiemetics Start: 02-24-2023 End: 09-24-2023 take 1 tablet by mouth every six hours Ondansetron Hcl 4 mg tablet Discontinued 4 mg PO EVERY 6 HOURS February 24, 2023 12:00am September 24, 2023 2:31pm Start: 08-01-2022 End: 08-04-2022 take 1 tablet by mouth three times daily ondansetron 4 mg oral tablet, disintegrating ; 1 tab(s) orally 3 times a day Quantity: 12 Refills: 0 Ordered: 01-Aug-2022 Bryce Jaquez Start: 01-Aug-2022 End: 04-Aug-2022 Generic Substitution Allowed Start: 01-15-2021 Ondansetron HC l - 4 MG Oral Tablet Quantity: 15 Refills: 0 Ordered: 15-Jan-2021 DO Start : 15-Jan-2021 Active Start: 11-02-2020 take 1 tablet by jay th every eight hours as needed for nausea ondansetron 4 MG tablet 1 po q 8 hours prn nausea 15 tablet 1 11/02/2020 Active pantoprazole 40 mg delayed release oral tablet (1 source) Proton Pump Inhibitor Start: 08-04-2022 take 1 tablet by mouth once daily Pantoprazole Sodium 40 MG Oral Tablet Delayed Release take 1 tablet by mouth once daily Quantity: 30 Refills: 5 Ordered: 04-Aug-2022 Jose Chou Start : 04-Aug-2022 Active predniSONE 10 mg oral tablet (3 sources) Start: 10-11-2020 End: 01-18-2021 predniSONE 10 MG Oral Tablet TAKE 3 TABLETS FOR 3 DAYS, 2 TABLETS FOR 3 DAYS, 1 TABLET FOR 3DAYS AND THEN STOP Quantity: 18 Refills: 0 Ordered: 11-Oct-2020 Noemi Pastor Start : 11-Oct-2020 End : 18-Jan-2021 Complete prochlorperazine 5 mg oral tablet (2 sources) Phenothiazine Start: 06-29-2024 End: 02-14-2025 take 1 tablet by mouth every six hours as needed for nausea Prochlorperazine Maleate (Compazine) 5 mg tablet Discontinued 5 mg PO EVERY 6 HOURS as needed for nausea and vomiting 12 June 29, 2024 1:00am February 14, 2025 11:19am Take as needed every 6 hours for nausea promethazine hydrochloride 25 mg rectal suppository (2 sources) Phenothiazine Start: 08-30-2024 End: 02-14-2025 Promethazine 25 mg suppository Discontinued 25 mg RC EVERY 6 HOURS as needed for nausea and vomiting 12 0 August 30, 2024 1:00am February 14, 2025 11:19am rizatriptan 10 mg oral tablet (7 sources) Serotonin-1b and Serotonin-1d Receptor Agonist Start: 11-02-2020 Rizatriptan Benzoate 10 MG Oral Tablet Quantity: 12 Refills: 0 Ordered: 29-Nov-2020 DO Start : 29-Nov-2020 Active Vitamin B Complex CAPS (4 sources) Vitamin B Comple x CAPS Quantity: 0 Refills: 0 Ordered: 18-Jan-2021 DO Active Vitamin D TABS (10 sources) End: 01-20-2022 Vitamin D TABS Quantity: 0 Refills: 0 Ordered: 20-Jan-2022 DO End : 20-Jan-2022 Complete Vitamin D TABS Q uantity: 0 Refills: 0 Ordered: 18-Jan-2021 DO Active Womens Multivitamin Plus TAB S (11 sources) Womens Multivita min Plus TABS Quantity: 0 Refills: 0 Ordered: 24-Oct-2020 DO Active Problems Active Problems Problem Classification Problem Date Documented Date Episodic/Chronic Abdominal pain (4 sources) Abdominal pain; Translations: [Unspecified abdominal pain] 07-15-2024 Episodic Comment on above: fevere over the week end and persistent, recommend ER evaluation Anxiety disorders (11 sources) Generalized anxiety disorder; Translations: [Generalized anxiety disorder] Chronic Cardiac dysrhythmias (4 sources) Tachycardia; Translations: [Tachycardia, unspecified] Onset: 08-01-2022 08-01-2022 Episodic Conditions associated with dizziness or vertigo (20 sources) Dizziness; Translations: [Dizziness and giddiness] 08-05-2023 Episodic Comment on above: labs Contraceptive and procreative management (15 sources) Intrauterine contraceptive device in situ; Translations: [Presence of intrauterine contraceptive device] Resolved: 04-23-2021 07-15-2024 Episodic Comment on above: 11/2017, BY DR WILFREDO Villaseñor; Diabetes mellitus without complication (13 sources) Increased glucose level; Translations: [Other abnormal glucose] Onset: 12-08-2024 12-12-2024 Episodic Disorders of teeth and jaw (3 sources) Temporomandibular joint disorder; Translations: [Unspecified temporomandibular joint disorder, unspecified side] Episodic Early or threatened labor (3 sources) False labor at or after 37 completed weeks of gestation; Translations: [False labor at or after 37 completed weeks of gestation] Onset: 02-15-2025 02-14-2025 Episodic Esophageal disorders (1 source) Gastroesophageal reflux disease; Translations: [Esophageal reflux] Chronic Female infertility (20 sources) Female infertility; Translations: [Female infertility, unspecified] 12-18-2022 Chronic Comment on above: OVA kit, ultrasound, SA abnormal motility and morphology Headache; including migraine (20 sources) Refractory migraine with aura; Translations: [Migraine with aura, intractable, with status migrainosus] Onset: 11-02-2020 Chronic Headache; including migraine (11 sources) Headache; Translations: [Headache] 09-14-2023 Episodic Hemorrhage during ; abruptio placenta; placenta previa (20 sources) Low lying placenta; Translations: [Low lying placenta NOS or without hemorrhage, second trimester] Onset: 11-16-2024 07-20-2023 Episodic Comment on above: RESOLVED pelvic rest , repeat US with MFM to reevaluate blood vessels also due to concern for maternal or vessel around cervix- was unclear at initial scan; persists at 22 wk, repeat 28 wk; Growth at 47% Vessels and low placenta all resolved. Growth 07/14/23 62% repeat scan at 28 we eks Immunizations and screening for infectious disease (8 sources) Suspected disease caused by 2019-nCoV; Translations: [Contact with or exposure to other viral diseases] Onset: 12-07-2024 12-07-2024 Episodic Malaise and fatigue (2 sources) Fatigue; Translations: [Other malaise and fatigue] Episodic Menopausal disorders (3 sources) Atrophy of vagina; Translations: [Postmenopausal atrophic vaginitis] Onset: 07-28-2024 08-24-2024 Chronic Comment on above: estrogen cream vagin ally Mood disorders (20 sources) Depressive disorder; Translations: [Depressive disorder, not elsewhere classified] Onset: 08-24-2024 02-24-2023 Chronic Comment on above: zoloft, counseling e ncouraged. stable Nausea and vomiting (3 sources) Nausea; Translations: [Nausea alone] 08-01-2022 Episodic Nutritional deficiencies (2 sources) Vitamin D deficiency; Translations: [Unspecified vitamin D deficiency] Chronic Other complications of ; puerperium affecting management of mother (2 sources) Other disorders of breast associated with and the puerperium; Translations: [Other and unspecified disorder of breast associated with childbirth, condition or complication] 09-27-2023 Episodic Other complications of (19 sources) Maternal obesity complicating , childbirth and the puerperium, antepartum; Translations: [Obesity complicating , second trimester] Onset: 11-16-2024 11-16-2024 Chronic Comment on above: BMI 31.2; HgBA1C ord ered Other complications of (2 sources) Obesity complicating , second trimester; Translations: [Obesity affecting in second trimester, unspecified obesity type (HCC)] Onset: 11-16-2024 Chronic Other complications of (1 source) Obesity complicating , unspecified trimester; Translations: [Obesity complicating , unspecified trimester] Onset: 08-24-2024 Chronic Other complications of (20 sources) High risk ; Translations: [Supervision of high risk , unspecified, unspecified trimester] Onset: 11-16-2024 02-24-2023 Episodic Comment on above: PRR, , RICHARD , PC: Víctor, : Renato PRR , RICHARD , surprise Renato Other complications of (15 sources) Spotting per vagina in ; Translations: [Spotting complicating , unspecified trimester] 02-24-2023 Episodic Other complications of (11 sources) Nausea and vomiting; Translations: [Vomiting of , unspecified] 03-05-2023 Episodic Other complications of (20 sources) RhD negative; Translations: [Other specified related conditions, unspecified trimester] Onset: 11-16-2024 03-05-2023 Episodic Comment on above: NO rhogam. n egative/lab scanned to her chart Other complications of (20 sources) Vomiting of , unspecified; Translations: [Unspecified vomiting of , unspecified as to episode of care or not applicable] 03-05-2023 Episodic Comment on above: supportive care orde red, failed doxylamine, doing well with zofran Other complications of (20 sources) Other specified related conditions, unspecified trimester; Translations: [Other specified complications of , antepartum condition or complication] Onset: 11-16-2024 03-05-2023 Episodic Other complications of (10 sources) Disease caused by 2019-nCoV; Translations: [Other viral diseases complicating , second trimester] 06-22-2023 Episodic Comment on above: asa 81 mg daily Other complications of (20 sources) Other viral diseases complicating , second trimester; Translations: [Other viral diseases in the mother, antepartum condition or complication] 07-03-2023 Episodic Other complications of (6 sources) Reduced movement; Translations: [Decreased movements, third trimester, not applicable or unspecified] 09-26-2023 Episodic Other complications of (5 sources) Variable heart decelerations; Translations: [Maternal care for abnormalities of the heart rate or rhythm, unspecified trimester, not applicable or unspecified] 09-26-2023 Episodic Comment on above: proceed with deliver y Other complications of (4 sources) Decreased movements, third trimester, not applicable or unspecified; Translations: [Decreased movements, affecting management of mother, antepartum condition or complication] Onset: 02-01-2025 09-27-2023 Episodic Other complications of (3 sources) Maternal care for abnormalities of the heart rate or rhythm, unspecified trimester, not applicable or unspecified; Translations: [Abnormality in heart rate or rhythm, antepartum condition or complication] 09-27-2023 Episodic Other complications of (20 sources) Multigravida of advanced maternal age; Translations: [Supervision of elderly multigravida, second trimester] Onset: 11-16-2024 11-16-2024 Episodic Comment on above: declined genetic david ting. growth US 36 weeks. Other complications of (5 sources) Uterine size for dates discrepancy; Translations: [Uterine size-date discrepancy, third trimester] 01-04-2025 Episodic Other complications of (1 source) Supervision of elderly multigravida, third trimester; Translations: [Multigravida of advanced maternal age in third trimester ([facility])] Onset: 11-16-2024 Episodic Other complications of (1 source) Uterine size-date discrepancy, third trimester; Translations: [Uterine size-date discrepancy, third trimester ([facility])] Onset: 01-04-2025 Episodic Other complications of (2 sources) Supervision of elderly multigravida, second trimester; Translations: [Multigravida of advanced maternal age in second trimester ([facility])] Onset: 11-16-2024 Episodic Other complications of (1 source) Supervision of high risk , unspecified, second trimester; Translations: [Supervision of high risk , unspecified, second trimester] Onset: 02-15-2025 Episodic Other ear and sense organ disorders (2 sources) Otalgia, right ear; Translations: [Otalgia, unspecified] Onset: 12-07-2024 12-07-2024 Episodic Other female genital disorders (6 sources) History of past delivery; Translations: [Status post vaginal delivery] 09-26-2023 Episodic Other injuries and conditions due to external causes (8 sources) Contusion; Translations: [Contusion of unspecified site] Episodic Other lower respiratory disease (4 sources) Cough; Translations: [Cough] Episodic Other nutritional; endocrine; and metabolic disorders (3 sources) Obese class I; Translations: [Obesity, unspecified] Onset: 11-02-2020 11-02-2020 Chronic Other nutritional; endocrine; and metabolic disorders (2 sources) Decrease in appetite; Translations: [Anorexia] Episodic Other conditions (14 sources) tachycardia; Translations: [ tachycardia] 09-21-2023 Episodic Other conditions (14 sources) H/O: problem; Translations: [History of infection] 11-16-2024 Episodic Other screening for suspected conditions (not mental disorders or infectious disease) (18 sources) Patient encounter status; Translations: [Breast screening, unspecified] Onset: 11-16-2024 11-16-2024 Episodic Other upper respiratory infections (8 sources) Upper respiratory infection; Translations: [Acute upper respiratory infections of unspecified site] Episodic Otitis media and related conditions (2 sources) Acute right otitis media; Translations: [Otitis media, unspecified, right ear] Onset: 12-07-2024 12-07-2024 Episodic Polyhydramnios and other problems of amniotic cavity (8 sources) Chorioamnionitis; Translations: [Chorioamnionitis, unspecified trimester, not applicable or unspecified] 09-25-2023 Episodic Residual codes; unclassified (4 sources) Chill; Translations: [Chills (without fever)] 10-02-2023 Episodic Residual codes; unclassified (2 sources) Chills (without fever); Translations: [Chills (without fever)] 10-02-2023 Episodic Residual codes; unclassified (19 sources) H/O: previous delivery by vacuum extraction; Translations: [Personal history of other complications of , childbirth and the puerperium] Onset: 11-16-2024 11-16-2024 Episodic Residual codes; unclassified (2 sources) Gestation period, 28 weeks; Translations: [28 weeks gestation of ] 12-07-2024 Episodic Residual codes; unclassified (1 source) Gestation period, 30 weeks; Translations: [30 weeks gestation of ] 12-21-2024 Episodic Residual codes; unclassified (2 sources) Gestation period, 32 weeks; Translations: [32 weeks gestation of ] 01-04-2025 Episodic Residual codes; unclassified (2 sources) Gestation period, 34 weeks; Translations: [34 weeks gestation of ] 01-12-2025 Episodic Residual codes; unclassified (2 sources) Gestation period, 36 weeks; Translations: [36 weeks gestation of ] 01-27-2025 Episodic Residual codes; unclassified (3 sources) Gestation period, 38 weeks; Translations: [38 weeks gestation of ] 02-10-2025 Episodic Residual codes; unclassified (2 sources) 38 weeks gestation of ; Translations: [38 weeks gestation of (HCC)] Onset: 02-10-2025 Episodic Residual codes; unclassified (1 source) 36 weeks gestation of ; Translations: [36 weeks gestation of (HCC)] Onset: 01-27-2025 Episodic Residual codes; unclassified (1 source) 34 weeks gestation of ; Translations: [34 weeks gestation of (HCC)] Onset: 01-12-2025 Episodic Residual codes; unclassified (1 source) Personal history of other complications of , childbirth and the puerperium; Translations: [History of vacuum extraction assisted delivery] Onset: 11-16-2024 Episodic Residual codes; unclassified (1 source) 32 weeks gestation of ; Translations: [32 weeks gestation of (HCC)] Onset: 01-04-2025 Episodic Residual codes; unclassified (1 source) 30 weeks gestation of ; Translations: [30 weeks gestation of (HCC)] Onset: 12-21-2024 Episodic Residual codes; unclassified (1 source) 28 weeks gestation of ; Translations: [28 weeks gestation of (HCC)] Onset: 12-07-2024 Episodic Spondylosis; intervertebral disc disorders; other back problems (1 source) Cervico-occipital neuralgia; Translations: [Occipital neuralgia] Episodic Unclassified (2 sources) DIZZY LIGHTHEADED, HEART POUNDING, SHOULDER PAIN 08-01-2022 Comment on above: DIZZY LIGHTHEADED, H EART POUNDING, SHOULDER PAIN Unclassified (1 source) 1 YR 01-20-2022 Comment on above: 1 YR Unclassified (13 sources) [facility] Education - COMMON Onset: 11-15-2024 11-15-2024 Unclassified (13 sources) Education - [place] Onset: 11-15-2024 11-15-2024 Viral infection (2 sources) Viral disease; Translations: [Viral infection, unspecified] 07-15-2024 Episodic Past or Other Problems Problem Classification Problem Date Documented Date Episodic/Chronic Other complications of (20 sources) Supervision of high risk , unspecified, unspecified trimester; Translations: [Supervision of unspecified high-risk ] Onset: 08-24-2024 03-05-2023 Episodic Other complications of (2 sources) Supervision of elderly multigravida, unspecified trimester; Translations: [Encounter for supervision of high risk multigravida of advanced maternal age, antepartum (HCC)] Onset: 08-24-2024 Episodic Other complications of (1 source) Other specified related conditions, second trimester; Translations: [Other specified related conditions, second trimester] Onset: 10-20-2024 Episodic Other complications of (1 source) Spotting complicating , unspecified trimester; Translations: [Spotting complicating , unspecified trimester] Onset: 08-05-2024 Episodic Other and delivery including normal (20 sources) Early stage of ; Translations: [Encounter for supervision of normal , unspecified, unspecified trimester] Onset: 08-18-2024 02-04-2023 Episodic Comment on above: nl anatomy,Discussed genetic/carrier testing - declined. Requesting limited cervical examsRequesting lower epidural dosage no urge to push last time Neg GBS declined gen etic, ntd, & carrier testing. anatomy reviewed, normal anatomy Residual codes; unclassified (2 sources) Unspecified blood type, Rh negative; Translations: [Rh negative state in antepartum period (HCC)] Onset: 10-20-2024 Episodic Residual codes; unclassified (1 source) 13 weeks gestation of ; Translations: [13 weeks gestation of ] Onset: 08-24-2024 Episodic Residual codes; unclassified (1 source) 10 weeks gestation of ; Translations: [10 weeks gestation of ] Onset: 07-28-2024 Episodic Unclassified (11 sources) Finding of menstrual bleeding; Translations: [Menstruation] Comment on above: Onset age 10 years; Results Test Name Value Interpretation Reference Range Facility OB Triage Physician Noteon 0 02-16-2025 OB Triage Physician Note [facility] Medical Records Department [address] [place] [address] OB Triage Physician Note 02/16/252018 MR#: [id number] Acct: [id number] Name: ANAHY ESCALANTE Rep #: [id number] : 1990 34 From: Lizzeth Ramos MD PCP: SPEEDY Taylor Status:DEP CLI Y Location: [facility] HPI - General General Date of Admission: 02/16/25 Date of Service: 02/16/25 Chief Complaint: DFM and contractions HPI Narrative ANAHY ESCALANTE, is a 34 F who presents intermittent decreased movement and frequent contractions. No bleeding or leaking. Sent from office for prolonged monitoring. noted in triage with reactive tracing. Frequent contractions with no cervical change. Patient scheduled for IOL Maternal Data Information Final RICHARD: 02/23/25 Gestational age: 39 PFSH PFSH Medical History (Updated 02/16/25 @ 20:[address] Lizzeth Ramos MD) Low lying placenta, antepartum Rh negative status during Viral illness Chills Abdominal pain Encounter for preconception consultation Spotting affecting Headache Home Medications ???Medication ???Instructions ???Recorded ???Last Taken ???Type multivitamin no.47-iron fum 27 1 cap PO DAILY 02/24/23 02/13/25 21:30 History mg-folate no.1 1 mg-dha 300 mg 1 cap capsule (PNV-DHA) sertraline 100 mg tablet 100 mg PO DAILY depression #30 02/13/25 21:30 Rx tabs 100 mg aspirin 81 mg chewable tablet 1 tab PO DAILY 02/14/25 02/13/25 2 1:30 History (Aspirin Childrens) 1 TAB Allergy/AdvReac Type Severity Reaction Status Date / Time Sulfa (Sulfonamide Allergy Unknown PT UNSURE Verified 02/14/25 11:18 Antibiotics) OF REACTION codeine AdvReac Severe Vomiting Verified 10/20/24 09:45 Family History Grandmother Breast cancer Father Graves disease Other Heart disease Surgical History Status post vaginal delivery History of tonsillectomy [place] teeth removed History of placement of ear tubes Social History adopted: No household members: spouse and children number of children: 1 current occupational status: employed 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 current occupational exposures/hazards: No pets and animals: No history of recent travel: No sexually active: Yes Smoking Status: Never smoker alcohol intake: never substance use type: does not use well-balanced diet: daily or most days caffeine: Yes Type: coffee Number of servings: 1 eating out: 1-3 times/week during the past year weight has: decreased > 10 lbs what type of physical activity do you participate in: walking and yoga frequency: 3-4 times per week duration: 30-45 minutes/day marie/yarsani: Catholic seatbelt use: always do you feel safe at home: Yes 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 Date Name GA/Weeks Outcome Route Bth Weight Gen Labor Lgth Anesthesia Del Locatn Provider FOB 09/25/23 Víctor 38 live - full term vacuum 7#10 Male epidural [facility] Lee Harrison Delivery Date: 09/25/23 Last Updated by: Estrellita Chávez Vaccsoy delivery 2nd degree tear NST FHR Rate Baby A Variability:: Moderate Accelerations:: 15 x 15 Decelerations:: None NST Reactive:: Yes Uterine Activity:: q3 Assessment Plan (1) AMA (advanced maternal age) multigravida 35+: QUALIFIERS: Trimester: second trimester Qualified Code(s): O09.522 - Supervision of elderly multigravida, second trimester COMMENT: declined genetic testing. growth US 36 weeks. (2) Decreased movement: QUALIFIERS: Fetus number: single or unspecified fetus Trimester: third trimester Qualified Code(s): O36.8130 - Decreased movements, third trimester, not applicable or unspecified (3) 39 weeks gestation of : PLAN: Plan IOL scheduled for tomorrow 02/16/252022 Date Lizzeth Ramos MD Cosigner Signature (if applicable): Date CC: SPEEDY [place]; Dr. Lizzeth Ramos MD Signed Normal [facility] (ROM) Rupture Of Membraneson 02-14-2025 ROM Negative Normal Negative [facility] Comment on above: Result Comment: Amni otic fluid not present indicates No Rupture of Membranes at time of specimen collection. Performed By: #### L 205.1000 ####[facility] [id number] [facility] [place], [address] OB Triage Physician Noteon 0 02-14-2025 OB Triage Physician Note [facility] Medical Records Department [address] [place] [address] OB Triage Physician Note 02/14/25 1721 MR#: [id number] Acct: [id number] Name: ANAHY ESCALANTE Rep #: [id number] : 1990 34 From: Shade Alexander MD PCP: SPEEDY Taylor Status:DEP CLI Y Location: [facility] HPI - General General Date of Admission: 02/14/25 Date of Service: 02/14/25 Chief Complaint: contractions HPI Narrative ANAHY ESCALANTE, is a 34 F who presents 2 para 1 who presents at 38-5/7 weeks gestation complaining contractions. Maternal Data Information Final RICHARD: 02/23/25 Gestational age: 38 5/7 PFSH [facility] Medical History Rh negative status during Viral illness Chills Abdominal pain Encounter for preconception consultation Spotting affecting Headache Home Medications ???Medication ???Instructions ???Recorded ???Last Taken ???Type multivitamin no.47-iron fum 27 1 cap PO DAILY 02/24/23 02/13/25 21:30 History mg-folate no.1 1 mg-dha 300 mg 1 cap capsule (PNV-DHA) sertraline 100 mg tablet 100 mg PO DAILY depression #30 02/13/25 21:30 Rx tabs 100 mg aspirin 81 mg chewable tablet 1 tab PO DAILY 02/14/25 02/13/25 2 1:30 History (Aspirin Childrens) 1 TAB Allergy/AdvReac Type Severity Reaction Status Date / Time Sulfa (Sulfonamide Allergy Unknown PT UNSURE Verified 02/14/25 11:18 Antibiotics) OF REACTION codeine AdvReac Severe Vomiting Verified 10/20/24 09:45 Family History Grandmother Breast cancer Father Graves disease Other Heart disease Surgical History Status post vaginal delivery History of tonsillectomy [place] teeth removed History of placement of ear tubes Social History adopted: No household members: spouse and children number of children: 1 current occupational status: employed 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 current occupational exposures/hazards: No pets and animals: No history of recent travel: No sexually active: Yes Smoking Status: Never smoker alcohol intake: never substance use type: does not use well-balanced diet: daily or most days caffeine: Yes Type: coffee Number of servings: 1 eating out: 1-3 times/week during the past year weight has: decreased > 10 lbs what type of physical activity do you participate in: walking and yoga frequency: 3-4 times per week duration: 30-45 minutes/day marie/yarsani: Catholic seatbelt use: always do you feel safe at home: Yes 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 Date Name GA/Weeks Outcome [facility] Víctor 38 live - full term vacuum 7#10 Male epidural [facility] Michael Gross Delivery Date: 09/25/23 Last Updated by: Estrellita Chávez Vaccum delivery 2nd degree tear NST FHR Rate Baby A Baseline: 130 Variability:: Moderate Accelerations:: 15 x 15 Decelerations:: Variable NST Reactive:: Yes FHR Category:: Category I (for > 20 min before discharge) Uterine Activity:: ctxs q2-4 min Assessment Plan (1) Obesity affecting : QUALIFIERS: Trimester: second trimester Obesity type affecting : unspecified obesity Qualified Code(s): O99.212 - Obesity complicating , second trimester COMMENT: BMI 31.2; HgBA1C ordered (2) AMA (advanced maternal age) multigravida 35+: QUALIFIERS: Trimester: second trimester Qualified Code(s): O09.522 - Supervision of elderly multigravida, second trimester COMMENT: declined genetic testing. growth US 36 weeks. (3) Supervision of high-risk : QUALIFIERS: Trimester: second trimester Qualified Code(s): O09.92 - Supervision of high risk , unspecified, second trimester COMMENT: PRR, , RICHARD 02/23/25, PC: Víctor, : Renato (4) 38 weeks gestation of : (5) False labor after 37 completed weeks of gestation: PLAN: Plan No evidence of active labor. Patient is comfortable being discharged home and returning should the contractions increase in intensity or with rupture of membranes. 02/14/25 1729 Date Shade Alexander MD Cosigner Signature (if applicable): Date CC: SPEEDY [place]; Dr. Shade Alexander MD Signed Normal [facility] URINE OB DIP B/Oon 5 Glucose Ql (U) Negative Neg mg/dL [facility] Interpretation and review of laboratory results Normal [facility] Protein.monoclonal (U) [Mass/Vol] Negative Neg mg/dL [facility] URINE OB DIP B/Oon 5 Glucose Ql (U) Negative Neg mg/dL [facility] Interpretation and review of laboratory results Normal [facility] Protein.monoclonal (U) [Mass/Vol] Negative Neg mg/dL [facility] ROUTINE, GROUP B ST REPTOCOCCUS BY PCRon 01-27-2025 ROUTINE, GROUP B STREPTOCOCCUS BY PCR Not detected Normal [facility] Comment on above: Performed By: #### T SPN, ABORH #### CC [facility] BLOOD BANK [facility] [id number] [address] [place] [address] OF [facility] URINE OB DIP B/Oon 5 Glucose Ql (U) Negative Neg mg/dL [facility] Interpretation and review of laboratory results Normal [facility] Protein.monoclonal (U) [Mass/Vol] Negative Neg mg/dL [facility] Examination level ultrasound on 01-12-2025 Indication Detailed anatomic survey Advanced maternal age, Transfer of care, Maternal obesity, BMI >30 Impression The patient is referred for a detailed anatomic survey. - Single, live, intrauterine . - biometry is consistent with the established gestational age. - No malformations were visualized on a detailed anatomic survey, although some anatomical structures were suboptimally seen as detailed below due to late gestational age. - The amniotic fluid volume is normal amount. - The placenta is posterior, fundal. - Not all structural malformations can be detected by ultrasound examination. Recommendations Additional follow-up as clinically indicated. Maternal Assessment Height 173 cm Height (ft) 5 ft Height (in) 8 in Physical Exam Initial weight (lb) 210 lb Initial BMI 31.93 kg/m Maternal assessment other: 2 Para 1 REMOTE READ Method Transabdominal ultrasound examination. View: Suboptimal view: limited by late gestational age Rivas . Number of fetuses: 1 Dating GA by prior assessment 34 w + 0 d RICHARD by prior assessment: 02/23/2025 Ultrasound examination on: 01/12/2025 GA by U/S based upon: AC, BPD, Femur, HC GA by U/S 34 w + 2 d RICHARD by U/S: 02/21/2025 Assigned: based on stated RICHARD, selected on 01/12/2025 Assigned GA 34 w + 0 d Assigned RICHARD: 02/23/2025 General Evaluation Cardiac activity present. FHR 158 bpm. movements: present. Presentation: cephalic Placenta: Placental site: posterior, fundal Umbilical cord: Cord vessels: 3 vessel cord Amniotic fluid: Amount of AF: normal amount. MVP 5.8 cm. PARVEZ 18.9 cm. Q1 5.1 cm, Q2 3.3 cm, Q3 5.8 cm, Q4 4.7 cm Growth Overview Exam date GA BPD (mm) HC (mm) AC (mm) FL (mm) HL (mm) EFW (g) 01/12/2025 34w 0d 86.6 74% 308.8 41% 311.7 83% 64.9 49% 59.1 67% 2441 58% Biometry Standard BPD 86.6 mm 35w 0d 74% Hadlock OFD 107.1 mm 32w 0d 25% Nicolaides HC 308.8 mm 33w 4d 41% Joseluis AC 311.7 mm 35w 1d 83% Hadlock Femur 64.9 mm 33w 2d 49% Joseluis Humerus 59.1 mm 34w 2d 67% Joseluis EFW 2,441 g 34w 2d 58% Hadlock EFW (lb) 5 lb EFW (oz) 6 oz EFW by: Hadlock (HC-AC-FL) Extended Warp Dresser 7.2 mm Extremities / Bony Struc FL / HC 0.21 Other Structures FHR 158 bpm Anatomy Cranium: normal Lateral ventricles: normal Choroid plexus: normal Midline falx: normal Cavum septi pellucidi: normal Cerebellum: normal Cisterna magna: normal Head / Neck Vermis: suboptimally visualized Neck: suboptimally visualized Nuchal fold: suboptimally visualized Lips: normal Profile: normal Nose: normal Face Maxilla: normal Mandible: normal Orbits: normal Lens: normal 4-chamber view: normal RVOT view: normal LVOT view: normal 3-vessel view: normal 4-mucrrs-inatcet view: normal Heart / Thorax Situs: situs solitus (normal) Aortic arch view: normal SVC: normal IVC: normal Cardiac axis: normal Rt lung: normal Lt lung: normal Diaphragm: normal Cord insertion: suboptimally visualized Stomach: normal Kidneys: normal Bladder: normal Genitals: normal Abdomen Abdom. wall: suboptimally visualized Cervical spine: normal Thoracic spine: normal Lumbar spine: normal Sacral spine: normal Arms: normal Legs: normal Rt upper arm: normal Rt forearm: normal Rt hand: normal Rt fingers: normal Lt upper arm: normal Lt forearm: normal Lt hand: normal Lt fingers: normal Rt upper leg: normal Rt lower leg: normal Rt foot: normal Lt upper leg: normal Lt lower leg: normal Lt foot: normal sex: female Wants to know sex: yes Maternal Structures Uterus / Cervix Uterus: Visualized Cervix: Not visualized Ovaries / Tubes / Adnexa Rt ovary: Visualized Lt ovary: Not visualized Performed By: Jennifer Ledesma RDMS, RVT Read By: Alem Nelson M.D. MATERNAL MEDICINE [facility] Radiology Study observation (narrative) [facility] GLUCOSE GESTATIONAL, 1 HOURo n 12-09-2024 Glucose 1 Hr post Unsp challenge [Mass/Vol] 131 mg/dL Normal [address] [facility] Comment on above: Order Comment: Speci men Type: BLOOD SPECIMEN Ordering Facility: [facility] Address: [address] [place] [address] Result Comment: [facility]st[facility]ians and Gynecologists (Harry/Nohemi) guidelines state gestational diabetes mellitus is present when 2 or more of the plasma glucose concentrations meet or exceed the following levels: fastin mg/dl, 1 hr: 180 mg/dl, 2 hr: 155 mg/dl, and 3 hr: 140 mg/dl. Performed By: #### T SPN, ABORH #### CC MAIN BLOOD BANK CLIA [id number] [address] [place] [address] [place] GLUCOSE GESTATIONAL, 2 HOURo n 12-09-2024 Glucose 2 Hr post Unsp challenge [Mass/Vol] 112 mg/dL Normal 74[address] [facility] Comment on above: Order Comment: Speci men Type: BLOOD SPECIMEN Ordering Facility: [facility] Address: [address] [place] [address] Result Comment: [facility] [employer] of [facility]stetricians and Gynecologists (Mcdonald/Coustan) guidelines state gestational diabetes mellitus is present when 2 or more of the plasma glucose concentrations meet or exceed the following levels: fastin mg/dl, 1 hr: 180 mg/dl, 2 hr: 155 mg/dl, and 3 hr: 140 mg/dl. Performed By: #### T SPN, ABORH #### CC MAIN BLOOD BANK CLIA [id number] [place] [address] [place] GLUCOSE GESTATIONAL, 3 HOURo n 12-09-2024 Glucose 3 Hr post Unsp challenge [Mass/Vol] 102 mg/dL Normal 74-[address] [facility] Comment on above: Order Comment: Speci men Type: BLOOD SPECIMEN Ordering Facility: [facility] Address: [address] [place] [address] Result Comment: [facility] Congress of Obstetricians and Gynecologists (Mcdonald/Coustan) guidelines state gestational diabetes mellitus is present when 2 or more of the plasma glucose concentrations meet or exceed the following levels: fastin mg/dl, 1 hr: 180 mg/dl, 2 hr: 155 mg/dl, and 3 hr: 140 mg/dl. Performed By: #### T SPN, ABORH #### [facility] CLIA [id number] [address] [place] [address] [place] GLUCOSE GESTATIONAL, FASTING on 12-09-2024 Glucose post fast [Mass/Vol] 85 mg/dL Normal 74-[address] [facility] Comment on above: Order Comment: Speci men Type: BLOOD SPECIMEN Ordering Facility: [facility] Address: [address] [place] [address] Result Comment: [facility] Congress of Obstetricians and Gynecologists (Harry/Nohemi) guidelines state gestational diabetes mellitus is present when 2 or more of the plasma glucose concentrations meet or exceed the following levels: fastin mg/dl, 1 hr: 180 mg/dl, 2 hr: 155 mg/dl, and 3 hr: 140 mg/dl. Performed By: #### G TGSTF #### [facility] CLIA [id number] [address] [place] [address] [place] ABO AND RH ONLYon 12-07-2024 ABO A Normal [facility] Comment on above: Order Comment: Speci men Type: BLOOD SPECIMEN Ordering Facility: [facility] Address: [address] [place] [address] Performed By: #### T SPN, ABORH #### [facility] CLIA [id number] [address] [place] [address] [place] Rh Nom (Bld) Negative Normal [facility] Comment on above: Order Comment: Speci men Type: BLOOD SPECIMEN Ordering Facility: [facility] Address: [address] [place] [address] Performed By: #### T SPN, ABORH #### [facility] CLIA [id number] [address] [place] [address] [place] CBC W Auto Differential pane l (Bld)on 12-07-2024 Basophils (Bld) [#/Vol] 10*3/uL Normal <0.[address] [facility] Comment on above: Order Comment: Speci men Type: BLOOD SPECIMEN Ordering Facility: [facility] Address: [address] [place] [address] Performed By: #### T SPN, ABORH #### [facility] CLIA [id number] [address] [place] [address] [place] Basophils/100 WBC (Bld) 0.2 % Normal [facility] Comment on above: Order Comment: Speci men Type: BLOOD SPECIMEN Ordering Facility: [facility] Address: [address] [place] [address] Performed By: #### T SPN, ABORH #### [facility] CLIA [id number] [address] [place] [address] [place] Differential cell count method Nom (Bld) Auto Normal [facility] Comment on above: Order Comment: Speci men Type: BLOOD SPECIMEN Ordering Facility: [facility] Address: [address] [place] [address] Performed By: #### T SPN, ABORH #### [facility] CLIA [id number] [address] [place] [address] [place] Eosinophils (Bld) [#/Vol] 0.04 10*3/uL Normal <0.[address] [facility] Comment on above: Order Comment: Speci men Type: BLOOD SPECIMEN Ordering Facility: [facility] Address: [address] [place] [address] Performed By: #### T SPN, ABORH #### [facility] CLIA [id number] [address] [place] [address] [place] Eosinophils/100 WBC (Bld) 0.3 % Normal [facility] Comment on above: Order Comment: Speci men Type: BLOOD SPECIMEN Ordering Facility: [facility] Address: [address] [place] [address] Performed By: #### T SPN, ABORH #### [facility] CLIA [id number] [address] [place] [address] [place] Erythrocyte distribution width (RBC) [Ratio] 13.1 % Normal 11.5-15.[address] [facility] Comment on above: Order Comment: Speci men Type: BLOOD SPECIMEN Ordering Facility: [facility] Address: [address] [place] [address] Performed By: #### T SPN, ABORH #### [facility] CLIA [id number] [address] [place] [address] [place] Hematocrit (Bld) [Volume fraction] 33.0 % Low 36.0-46.[address] [facility] Comment on above: Order Comment: Speci men Type: BLOOD SPECIMEN Ordering Facility: [facility] Address: [address] [place] [address] Performed By: #### T SPN, ABORH #### [facility] CLIA [id number] [address] [place] [address] [place] Hemoglobin (Bld) [Mass/Vol] 11.3 g/dL Low 11.5-15.[address] [facility] Comment on above: Order Comment: Speci men Type: BLOOD SPECIMEN Ordering Facility: [facility] Address: [address] [place] [address] Performed By: #### T SPN, ABORH #### [facility] CLIA [id number] [address] [place] [address] [place] Immature granulocytes (Bld) [#/Vol] 0.04 10*3/uL Normal <0.[address] [facility] Comment on above: Order Comment: Speci men Type: BLOOD SPECIMEN Ordering Facility: [facility] Address: [address] [place] [address] Performed By: #### T SPN, ABORH #### [facility] CLIA [id number] [address] [place] [address] [place] Immature granulocytes/100 WBC (Bld) 0.3 % Normal [facility] Comment on above: Order Comment: Speci men Type: BLOOD SPECIMEN Ordering Facility: [facility] Address: [address] [place] [address] Performed By: #### T SPN, ABORH #### [facility] CLIA [id number] [address] [place] [address] [place] Lymphocytes (Bld) [#/Vol] 1.44 10*3/uL Normal 1.00-4.[address] [facility] Comment on above: Order Comment: Speci men Type: BLOOD SPECIMEN Ordering Facility: [facility] Address: [address] [place] [address] Performed By: #### T SPN, ABORH #### [facility] CLIA [id number] [address] [place] [address] [place] Lymphocytes/100 WBC (Bld) 11.9 % Normal [facility] Comment on above: Order Comment: Speci men Type: BLOOD SPECIMEN Ordering Facility: [facility] Address: [address] [place] [address] Performed By: #### T SPEmmanuel, ABORH #### [facility] CLIA [id number] [address] [place] [address] [place] MCH (RBC) [Entitic mass] 29.0 pg Normal 26.0-34.[address] [facility] Comment on above: Order Comment: Speci men Type: BLOOD SPECIMEN Ordering Facility: [facility] Address: [address] [place] [address] Performed By: #### T SPN, ABORH #### [facility] CLIA [id number] [address] [place] [address] [place] MCHC (RBC) [Mass/Vol] 34.2 g/dL Normal 30.5-36.0 [facility] Comment on above: Order Comment: Speci men Type: BLOOD SPECIMEN Ordering Facility: [facility] Address: [address] [place] [address] Performed By: #### T SPN, ABORH #### [facility] CLIA [id number] [address] [place] [address] [place] MCV (RBC) [Entitic vol] 84.8 fL Normal 80.0-100.[address] [facility] Comment on above: Order Comment: Speci men Type: BLOOD SPECIMEN Ordering Facility: [facility] Address: [address] [place] [address] Performed By: #### T SPN, ABORH #### [facility] CLIA [id number] [address] [place] [address] [place] Monocytes (Bld) [#/Vol] 0.91 10*3/uL High <0.[address] [facility] Comment on above: Order Comment: Speci men Type: BLOOD SPECIMEN Ordering Facility: [facility] Address: [address] [place] [address] Performed By: #### T SPN, ABORH #### [facility] CLIA [id number] [address] [place] [address] [place] Monocytes/100 WBC (Bld) 7.5 % Normal [facility] Comment on above: Order Comment: Speci men Type: BLOOD SPECIMEN Ordering Facility: [facility] Address: [address] [place] [address] Performed By: #### T SPN, ABORH #### [facility] CLIA [id number] [address] [place] [address] [place] Neutrophils (Bld) [#/Vol] 9.61 10*3/uL High 1.45-7.[address] [facility] Comment on above: Order Comment: Speci men Type: BLOOD SPECIMEN Ordering Facility: [facility] Address: [address] [place] [address] Performed By: #### T SPN, ABORH #### [facility] CLIA [id number] [address] [place] [address] [place] Neutrophils/100 WBC (Bld) 79.8 % Normal [facility] Comment on above: Order Comment: Speci men Type: BLOOD SPECIMEN Ordering Facility: [facility] Address: [address] [place] [address] Performed By: #### T SPN, ABORH #### [facility] CLIA [id number] [address] [place] [address] [place] Nucleated RBC (Bld) [#/Vol] 10*3/uL Normal <0.[address] [facility] Comment on above: Order Comment: Speci men Type: BLOOD SPECIMEN Ordering Facility: [facility] Address: [address] [place] [address] Performed By: #### T SPEmmanuel, ABORH #### [facility] CLIA [id number] [address] [place] [address] [place] Nucleated RBC/100 WBC (Bld) [Ratio] 0.0 /[address] [facility] Comment on above: Order Comment: Speci men Type: BLOOD SPECIMEN Ordering Facility: [facility] Address: [address] [place] [address] Performed By: #### T RIGO, ABORH #### [facility] CLIA [id number] [address] [place] [address] [place] Platelet mean volume (Bld) [Entitic vol] 9.2 fL Normal 9.0-12.[address] [facility] Comment on above: Order Comment: Speci men Type: BLOOD SPECIMEN Ordering Facility: [facility] Address: [address] [place] [address] Performed By: #### T RIGO, ABORH #### [facility] CLIA [id number] [address] [place] [address] [place] Platelets (Bld) [#/Vol] 270 10*3/uL Normal 150-[address] [facility] Comment on above: Order Comment: Speci men Type: BLOOD SPECIMEN Ordering Facility: [facility] Address: [address] [place] [address] Performed By: #### T SPN, ABORH #### [facility] CLIA [id number] [address] [place] [address] [place] RBC (Bld) [#/Vol] 3.89 10*6/uL Low 3.90-5.20 [facility] Comment on above: Order Comment: Speci men Type: BLOOD SPECIMEN Ordering Facility: [facility] Address: [address] [place] [address] Performed By: #### T SPN, ABORH #### [facility] CLIA [id number] [address] [place] [address] [place] WBC (Bld) [#/Vol] 12.06 10*3/uL High 3.70-11.00 [facility] Comment on above: Order Comment: Speci men Type: BLOOD SPECIMEN Ordering Facility: [facility] Address: [address] [place] [address] Performed By: #### T SPN, ABORH #### [facility] CLIA [id number] [address] [place] [address] [place] CNOVon 12-07-2024 [facility] ----- ANAHY ESCALANTE ([id number]) 1990 F Date Time Provider Department 12/07/24 7:15 AM PAULINE [facility] During your visit today, we recorded the following information about you: Temperature Pulse Respiration Blood pressure 98.2 degrees 100/minute 18/minute 120/68 Weight 94.7 kg Pauline Norwood, G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 12/07/2024 7:47 AM Signed [facility] Subjective Anahy Escalante is a 34 year old female. Patient presents with: Ear Pain: right x 5 days, started with sinus pressure Ear Pain Sinus Congestion and Right Ear Pain: - Onset of sinus congestion approximately 5 days ago. - Developed really intense right ear pain last night. - Denies rhinorrhea, pharyngitis, ocular symptoms, cough, nausea, emesis, fever, or chills. - Tried Mucinex and Tylenol with some relief. : - Currently 28 weeks with second . - Receiving care. PAST MEDICAL HISTORY Diagnosis Date Depression History of infection 09/25/2023 History of depression September 2023 Post depression PAST SURGICAL HISTORY Procedure Laterality Date PAST SURGICAL HISTORY OF Ear tube insertion and tonsilectomy ALLERGIES Codeine and Sulfa (Sulfonamide Antibiotics) MEDICATIONS aspirin, enteric coated (ECOTRIN LOW STRENGTH) 81 mg EC tablet Take 1 tablet by mouth once daily. sertraline (ZOLOFT) 100 mg tablet Take 100 mg by mouth once daily. PNV no.95/ferrous fum/folic ac ( ORAL) Take 1 tablet by mouth once daily. amoxicillin (AMOXIL) 875 mg tablet Take 1 tablet by mouth two times a day for 7 days. FAMILY HISTORY Problem Relation Age of Onset Thyroid Father Graves disease Social History Tobacco Use Smoking status: Never Smokeless tobacco: Never Vaping Use Vaping status: Never Used Substance Use Topics Alcohol use: No Drug use: Never Review of Systems Constitutional: (-) fever, (-) chills Eyes: (-) eye complaints Ears/Nose/Mouth/Throat: (+) right otalgia, (+) sinus congestion, (-) sore throat Respiratory: (-) cough Gastrointestinal: (-) nausea, (-) vomiting Objective BP 120/68 Pulse 100 Temp 36.8 ?C (98.2 ?F) Resp 18 Wt 94.7 kg (208 lb 12.4 oz) LMP 05/19/2024 SpO2 98% BMI 31.74 kg/m? Physical Exam Vitals and nursing note reviewed. Constitutional: General: She is not in acute distress. Appearance: Normal appearance. She is normal weight. She is not ill-appearing, toxic-appearing or diaphoretic. HENT: Head: Normocephalic and atraumatic. Right Ear: Ear canal and external ear normal. Left Ear: Ear canal and external ear normal. Ears: Comments: Right TM erythematous and bulging Nose: Nose normal. No congestion or rhinorrhea. Mouth/Throat: Mouth: Mucous membranes are moist. Pharynx: No oropharyngeal exudate or posterior oropharyngeal erythema. Eyes: General: Right eye: No discharge. Left eye: No discharge. Extraocular Movements: Extraocular movements intact. Conjunctiva/sclera: Conjunctivae normal. Pupils: Pupils are equal, round, and reactive to light. Cardiovascular: Rate and Rhythm: Normal rate and regular rhythm. Pulses: Normal pulses. Heart sounds: Normal heart sounds. No murmur heard. No friction rub. Pulmonary: Effort: Pulmonary effort is normal. No respiratory distress. Breath sounds: Normal breath sounds. No stridor. No wheezing, rhonchi or rales. Chest: Chest wall: No tenderness. Abdominal: General: Abdomen is flat. There is no distension. Palpations: Abdomen is soft. There is no mass. Tenderness: There is no abdominal tenderness. There is no right CVA tenderness, left CVA tenderness, guarding or rebound. Hernia: No hernia is present. Musculoskeletal: General: No swelling, tenderness, deformity or signs of injury. Normal range of motion. Cervical back: Normal range of motion and neck supple. No rigidity. Right lower leg: No edema. Left lower leg: No edema. Lymphadenopathy: Cervical: Cervical adenopathy present. Skin: General: Skin is warm and dry. Coloration: Skin is not jaundiced or pale. Findings: No bruising, erythema, lesion or rash. Neurological: General: No focal deficit present. Mental Status: She is alert and oriented to person, place, and time. Cranial Nerves: No cranial nerve deficit. Sensory: No sensory deficit. Motor: No weakness. Coordination: Coordination normal. Gait: Gait normal. Psychiatric: Mood and Affect: Mood normal. Behavior: Behavior normal. Thought Content: Thought content normal. Judgment: Judgment normal. {1. 28 weeks gestation of ([facility]) (Z3A.28) - Currently 28 weeks gestation, second . - Receiving care. - Provided a list of medications safe during , including options for cold, cough, and congestion relief such as warm salt water gargles and saline (more content not included)... Normal [facility] GESTATIONAL GLUCOSE SCREEN, 1-HOUR, 50 GRAM, NON-FASTINGon 12-07-2024 Glucose [Mass/Vol] 137 mg/dL High 74-134 [facility] Comment on above: Order Comment: Speci men Type: BLOOD SPECIMEN Ordering Facility: [facility] Address: [address] [place] [id number] Result Comment: [facility] Congress of Obstetricians and Gynecologists (Harry/Nohemi) guidelines state a gestational diabetes mellitus positive screen is made, in women not previously diagnosed with overt diabetes, when the 1 hr plasma glucose level is equal to or above 140 mg/dL. [facility] recommends a 135 mg/dL cutoff. Performed By: #### T SPN, ABORH #### [facility] CLIA [id number] [address] [place] [address] [place] Reagin and Treponema pallidu m IgG and IgM [Interp]on 12-07-2024 T. pallidum IgG+IgM IA Ql (S) Non-Reactive Normal Nonreactive [facility] Comment on above: Order Comment: Speci men Type: BLOOD SPECIMEN Ordering Facility: [facility] Address: [address] [place] [address] Performed By: #### T SPN, ABORH #### [facility] CLIA [id number] [address] [place] [address] [place] Reagin+T pallidum IgG+IgM Se rPl-Impon 12-07-2024 Reagin and Treponema pallidum IgG and IgM [Interp] Cannot exclude recent Treponemal infection if specimen collected within 7-10 days after appearance of suspect lesions or 2-3 weeks after an exposure. Clinical correlation is required. Normal [facility] Comment on above: Order Comment: Speci men Type: BLOOD SPECIMEN Ordering Facility: [facility] Address: [address] [place] [address] Performed By: #### T SPN, ABORH #### [facility] CLIA [id number] [address] [place] [address] [place] TYPE + SCREEN PRENATALon ABO Invalid result Normal [facility] Comment on above: Order Comment: Speci men Type: BLOOD SPECIMEN Ordering Facility: [facility] Address: [address] [place] [address] Performed By: #### T SPN, ABORH #### [facility] CLIA [id number] Rh Nom (Bld) Invalid result Normal [facility] Comment on above: Order Comment: Speci men Type: BLOOD SPECIMEN Ordering Facility: [facility] Address: [address] [place] [address] Performed By: #### T SPN, ABORH #### [facility] CLIA [id number] [address] [place] [address] TYPE AND SCREEN EXPIRATION 12/10/2024 23:[address] [facility] Comment on above: Order Comment: Speci men Type: BLOOD SPECIMEN Ordering Facility: [facility] Address: [address] [place] [address] Performed By: #### T SPN, ABORH #### [facility] CLIA [id number] [address] [place] [address] [place] 11-03-2024 CNPN Telephone (OBGYWM) ----- ANAHY ESCALANTE ([id number]) 1990 F Date Time Provider Department 11/03/24 PRABHA QUEVEDO During your visit today, we recorded the following information about you: Estephania Yee RN 11/03/2024 4:52 PM Addendum Records received from [facility]. Since it is 229 pages placed behind all chart prep folders for 11/16 NOB appt with CP (it is not specifically in CP's folder). Estephania Yee RN Allergies As of Date: 11/03/2024 Noted Allergy Reaction SULFA (SULFONAMIDE ANTIBIOTICS) 06/20/2008 Date Reviewed: 06/20/2008 Reviewed by: Michelle Coates LPN - Reviewed Reason for Visit: Received Outside Medical Records [0880] Prescriptions as of 11/03/2024 - COMPOUNDED PRESCRIPTION pristig 50 mg. take one daily - eszopiclone(LUNESTA 3 MG TAB) take one daily - lorazepam(ATIVAN 1 MG TAB) Take one(1) tablet every day Problem List As Of Date: 11/03/2024 (None) Encounter Status:Closed by ESTEPHANIA YEE on 11/03/[address] [facility] Laboratory - Chemistry and C hemistry - challengeOrdered By: Lizzeth Rodriguez on 10-20-2024 Glucose Ql (U) Negative [facility] - UrinalysisOrder ed By: Lizzeth Rodriguez on 10-20-2024 Protein Ql (U) Negative [facility] Registry Nurse Office Visit Reporton 10-20-2024 Registry Nurse Office Visit Report [facility] [address], [address] [place] [address] OFFICE VISIT Date of Service: 10/20/24 MR#: [id number] Acct: [id number] Name: ANAHY ESCALANTE Rep #: [id number] : 1990 Provider: Dr. Lizzeth Jones DO Age/Sex: 33/F [place] [facility]: Signed with Addenda ADDENDUM by Dr. Lizzeth Abarca DO on 10/20/24 at 1505 Assessment and Plan Assessment and Plan (1) Low lying placenta, antepartum: Status: Acute Comment: repeat scan at 28 weeks (2) Obesity affecting : Status: Acute Qualifiers: Trimester: second trimester Obesity type affecting : unspecified obesity Qualified Code(s): O99.212 - Obesity complicating , second trimester Comment: BMI 31.2; HgBA1C ordered (3) AMA (advanced maternal age) multigravida 35+: Status: Acute Qualifiers: Trimester: second trimester Qualified Code(s): O09.522 - Supervision of elderly multigravida, second trimester Comment: declined genetic testing. growth US 36 weeks. (4) Rh negative status during : Status: Acute Qualifiers: Trimester: second trimester Qualified Code(s): O26.892 - Other specified related conditions, second trimester; Z67.91 - Unspecified blood type, Rh negative Comment: NO rhogam. negative/lab scanned to her chart (5) Supervision of high-risk : Status: Acute Qualifiers: Trimester: second trimester Qualified Code(s): O09.92 - Supervision of high risk , unspecified, second trimester Comment: PRR, , RICHARD 02/23/25, PC: Víctor, : Renato (6) : Status: Acute Qualifiers: Weeks of gestation: 17 weeks Qualified Code(s): Z3A.17 - 17 weeks gestation of Comment: nl anatomy,Discussed genetic/carrier testing - declined. Requesting limited cervical exams Requesting lower epidural dosage no urge to push last time (7) Depression: Status: Acute Qualifiers: Depression Type: other depression Qualified Code(s): F32.89 - Other specified depressive episodes Comment: zoloft, counseling encouraged. stable Orders: Orders POC Urinalysis 2 Dip (Clinic) Today CBC W/Diff, Automated Today O09.92 - Supervision of high risk , unspecified, second trimester Type Screen Today O09.92 - Supervision of high risk , unspecified, second trimester, O26.892 - Other specified related conditions, second trimester, Z67.91 - Unspecified blood type, Rh negative Glucose Challenge Gest 1H 50g Today O09.92 - Supervision of high risk , unspecified, second trimester, Z13.1 - Encounter for screening for diabetes mellitus HIV Today O09.92 - Supervision of high risk , unspecified, second trimester Syphilis Antibodies Today O09.92 - Supervision of high risk , unspecified, second trimester Addendum The statement above about PTSD was entered in the side notes based on the having some flashbacks and experience of an unfavorable experience with her last labor. It was entered in short hand for the soul purpose of remembering his experience in order to offer a better experience next time. It is not an official diagnosis that was given to him by myself, and it is not within my knowledge that he was given this diagnosis by any other physician. 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 Is patient in pain?: No Allergies codeine Adverse Reaction (Severe, Verified 10/20/24 09:45) Vomiting Medications ???Medication ???Instructions ???Recorded ???Confirmed ???Type multivitamin no.47-iron fum 27 1 cap PO DAILY 02/24/23 10/20/24 History mg-folate no.1 1 mg-dha 300 mg capsule (PNV-DHA) sertraline 100 mg tablet 100 mg PO DAILY depression #30 10/20/24 Rx tabs prochlorperazine maleate 5 mg 5 mg PO Q6H PRN nausea and 4 10/20/24 Rx tablet (Compazine) vomiting #12 tabs ondansetron 4 mg disintegrating 4 mg PO Q8H PRN nausea and 4 10/20/24 Rx tablet vomiting #30 tabs promethazine 25 mg rectal 25 mg SC Q6H PRN nausea and 10/20/24 Rx suppository vomiting #12 ea Last Menstrual Period: 05/19/24 Zika: Zika virus screening: Negative : No PFSH PFSH Medical History Rh negative status during Viral illness Chills Abdominal pain Encounter for preconception consultation Spotting affecting Headache Surgical History (Reviewed 0 (more content not included)... Normal [facility] Registry Nurse Office Visit Reporton 09-21-2024 Registry Nurse Office Visit Report [facility]'s [address], [address] [place] [address] OFFICE VISIT Date of Service: 09/21/24 MR#: [id number] Acct: [id number] Name: QUINTENANAHYZEINA REID Rep #: [id number] : 1990 Provider: SPEEDY harrington Age/Sex: 33/F [place] [facility] [place] Status: Signed Intake Vital Signs 07/28/24 08:53 08/24/24 15:45 09/21/24 13:30 Height 5 ft 8 in 5 ft 8 in 5 ft 8 in Weight: 206 lb 4 oz BMI 31.4 BP 124/80 H Intake Visit Reasons: 18 wk ob Chief Complaint: 18 Week OB 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 Is patient in pain?: No Allergies codeine Adverse Reaction (Severe, Verified 09/21/24 13:31) Vomiting Medications ???Medication ???Instructions ???Recorded ???Confirmed ???Type multivitamin no.47-iron fum 27 1 cap PO DAILY 02/24/23 09/21/24 History mg-folate no.1 1 mg-dha 300 mg capsule (PNV-DHA) sertraline 100 mg tablet 100 mg PO DAILY depression #30 09/21/24 Rx tabs prochlorperazine maleate 5 mg 5 mg PO Q6H PRN nausea and 4 09/21/24 Rx tablet (Compazine) vomiting #12 tabs ondansetron 4 mg disintegrating 4 mg PO Q8H PRN nausea and 4 09/21/24 Rx tablet vomiting #30 tabs promethazine 25 mg rectal 25 mg SC Q6H PRN nausea and 09/21/24 Rx suppository vomiting #12 ea Last Menstrual Period: 05/19/24 Zika: Zika virus screening: Negative : No PFSH PFSH Medical History Rh negative status during Viral illness Chills Abdominal pain Encounter for preconception consultation Spotting affecting Headache Surgical History Status post vaginal delivery History of tonsillectomy [place] teeth removed History of placement of ear tubes Family History Grandmother Breast cancer Father Graves disease Other Heart disease Social History adopted: No household members: spouse and children number of children: 1 current occupational status: employed 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 current occupational exposures/hazards: No pets and animals: No history of recent travel: No sexually active: Yes Smoking Status: Never smoker alcohol intake: never substance use type: does not use well-balanced diet: daily or most days caffeine: Yes Type: coffee Number of servings: 1 eating out: 1-3 times/week during the past year weight has: decreased > 10 lbs what type of physical activity do you participate in: walking and yoga frequency: 3-4 times per week duration: 30-45 minutes/day marie/yarsani: Catholic seatbelt use: always do you feel safe at home: Yes 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 Date Name GA/Weeks Outcome Route Bth Weight Infant Gen Labor Lgth Anesthesia Del Locatn Provider FOB 09/25/23 Víctor 38 live - full term vacuum 7#10 Male epidural [facility] [place] Delivery Date: 09/25/23 Last Updated by: Estrellita Chávez Vaccum delivery 2nd degree tear HPI 18 wk ob Details: ANAHY ESCALANTE is a 33 year old who presents for routine OB visit. OB Visit RICHARD Calculator Estimated Delivery Date Method Current Current Estimate 02/23/25 LMP (Certain) 17w 6d Other Estimates 02/28/25 Ultrasound #1 17w 1d 02/28/25 Ultrasound #2 17w 1d Expected Delivery Route/Plan Labor Preferences- CB/BF classes: [] labor support person: [] labor intervention preferences: [] pain management options preferred: [] cut cord/dad catch: [] : [] PP control planned: [] discussed possible routes of delivery and associated risks: [] special requests: [] Specific Issue/Plans Covid status: [] Flu vaccine: [] Tdap vaccine: [] Rhogam: No rhogam as both patient and negative LARC form signed: [] Problem list reviewed and updated with the most current plan of care details and appropriate orders placed. Relevant counseling for the gestational age provided. Continue routine care and follow up unless otherwise noted in visit notes/problem list details Initial Weight: 209 lb Date -???-???-???-???-???-???- ???-???-???-???-???-???- EGA Weight BP Urine Prot -???-???-???-???-???-???- ???-???-???-???-???-???- Glucose FHR FuHt Pres Dilation -???-???-???-???-???-???- ???-???-???-???-???-???- Effaced St Visit Note 07/28/24 -???-???-???-???-???-???- ??? (more content not included)... Normal [facility] Registry Nurse Office Visit Reporton 08-24-2024 Registry Nurse Office Visit Report [facility] [address], [address] [place] [address] OFFICE VISIT Date of Service: 08/24/24 MR#: [id number] Acct: [id number] Name: ANAHY ESCALANTE Rep #: [id number] : 1990 Provider: Dr. 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 Is patient in pain?: No Feel stressed/tense/nervous/an xious/difficulty sleeping: not at all Allergies codeine Adverse Reaction (Severe, Verified 08/24/24 15:44) Vomiting Medications ???Medication ???Instructions ???Recorded ???Confirmed ???Type multivitamin no.47-iron fum 27 1 cap PO DAILY 02/24/23 08/24/24 History mg-folate no.1 1 mg-dha 300 mg capsule (PNV-DHA) sertraline 100 mg tablet 100 mg PO DAILY depression #30 08/24/24 Rx tabs prochlorperazine maleate 5 mg 5 mg PO Q6H PRN nausea and 4 08/24/24 Rx tablet (Compazine) vomiting #12 tabs ondansetron 4 mg disintegrating 4 mg PO Q8H PRN nausea and 4 08/24/24 Rx tablet vomiting #30 tabs Last Menstrual Period: 05/19/24 Zika: Zika virus screening: Negative : No Have you fallen in the past year?: No PFSH PFSH Medical History Rh negative status during Viral illness Chills Abdominal pain Encounter for preconception consultation Spotting affecting Headache Surgical History Status post vaginal delivery History of tonsillectomy [place] teeth removed History of placement of ear tubes Family History Grandmother Breast cancer Father Graves disease Other Heart disease Social History adopted: No household members: spouse and children number of children: 1 current occupational status: employed 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 current occupational exposures/hazards: No pets and animals: No history of recent travel: No sexually active: Yes Smoking Status: Never smoker alcohol intake: never substance use type: does not use well-balanced diet: daily or most days caffeine: Yes Type: coffee Number of servings: 1 eating out: 1-3 times/week during the past year weight has: decreased > 10 lbs what type of physical activity do you participate in: walking and yoga frequency: 3-4 times per week duration: 30-45 minutes/day marie/yarsani: Catholic seatbelt use: always do you feel safe at home: Yes 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 Date Name GA/Weeks Outcome Route Bth Weight Gen Labor Lgth Anesthesia Del Locatn Provider FOB 09/25/23 Víctor 38 live - full term vacuum 7#10 Male epidural [facility] [place] Delivery Date: 09/25/23 Last Updated by: Estrellita Chávez Vaccum delivery 2nd degree tear HPI 14wk OB Details: ANAHY ESCALANTE is a 33 year old who presents for routine OB visit. OB Visit RICHARD Calculator Estimated Delivery Date Method Current WG Current Estimate 02/23/25 LMP (Certain) 13w 6d Other Estimates 02/28/25 Ultrasound #1 13w 1d 02/28/25 Ultrasound #2 13w 1d Expected Delivery Route/Plan Labor Preferences- CB/BF classes: [] labor support person: [] labor intervention preferences: [] pain management options preferred: [] cut cord/dad catch: [] : [] PP control planned: [] discussed possible routes of delivery and associated risks: [] special requests: [] Specific Issue/Plans Covid status: [] Flu vaccine: [] Tdap vaccine: [] Rhogam: [] LARC form signed: [] Problem list reviewed and updated with the most current plan of care details and appropriate orders placed. Relevant counseling for the gestational age provided. Continue routine care and follow up unless otherwise noted in visit notes/problem list details Initial Weight: 209 lb Date -???-???-???-???-???-???- ???-???-???-???-???-???- EGA Weight BP Urine Prot -???-???-???-???-???-???- ???-???-???-???-???-???- Glucose FHR FuHt Pres Dilation -???-???-???-???-???-???- ???-???-???-???-???-???- Effaced St Visit Note 07/28/24 -???-???-???-???-???-???- ???-???-???-???-???-???- 10w 0d 209 lb (+0 oz) 137/82 - (more content not included)... Normal [facility] Chlamydia/GC TRISTIAN aptimaon CHLAMY,NUC ACID Negative Normal Negative [facility] Comment on above: Performed By: #### L 7000.1800, M100.2200 #### [facility] [address] [place], [place], [address] GC BY NUC ACID Negative Normal Negative [facility] Comment on above: Result Comment: Perf ormed at: =G - [facility] [address] [place], [place] [id number] Central Service Tech: Ning Humphreys MD, Phone: [phone] Performed By: #### L 7000.1800, M100.2200 #### [facility] [address] [place], [address] Urine Cultureon 07-29-2024 URC Culture exhibits no growth. Normal [facility] Comment on above: Performed By: #### L 7000.1800, M100.2200 #### [facility] [address] [place], [address] ABORh Blood Type, Patienton 07-28-2024 ABO and Rh group Nom (Bld) Blood group A Rh(D) negative Normal [facility] Comment on above: Order Comment: PN Performed By: #### L 3890.6100, L509.8000, L3890.6300, L509.4005, L501.9985, BTS, BtABORH, L100.0100, L3890.6005, [id number] #### [facility] [address] [place], [address] CBC W/Diff, Automatedon 07-13 Absolute Lymph 1.93 X10 3/uL Normal 0.83-4.51 [facility] Comment on above: Performed By: #### L 3890.6100, L509.8000, L3890.6300, L509.4005, L501.9985, BTS, BtABORH, L100.0100, L3890.6005, [id number] #### [facility] [address] [place], [address] Absolute Neut 5.1 X10 3/uL Normal 2.0-7.7 [facility] Comment on above: Performed By: #### L 3890.6100, L509.8000, L3890.6300, L509.4005, L501.9985, BTS, BtABORH, L100.0100, L3890.6005, [id number] #### [facility] [address] [place], [address] Basophils/100 WBC (Bld) 0.4 % Normal 0-1 [facility] Comment on above: Performed By: #### L 3890.6100, L509.8000, L3890.6300, L509.4005, L501.9985, BTS, BtABORH, L100.0100, L3890.6005, [id number] #### [facility] [address] [place], [address] Eosinophils/100 WBC (Bld) 0.8 % Normal 0-5 [facility] Comment on above: Performed By: #### L 3890.6100, L509.8000, L3890.6300, L509.4005, L501.9985, BTS, BtABORH, L100.0100, L3890.6005, [id number] #### [facility] [address] [place], [address] Erythrocyte distribution width (RBC) [Ratio] 12.5 % Normal 11.6-14.6 [facility] Comment on above: Performed By: #### L 3890.6100, L509.8000, L3890.6300, L509.4005, L501.9985, BTS, BtABORH, L100.0100, L3890.6005, [id number] #### [facility] [address] [place], [address] Hematocrit (Bld) [Volume fraction] 39.6 % Normal 37-47 [facility] Comment on above: Performed By: #### L 3890.6100, L509.8000, L3890.6300, L509.4005, L501.9985, BTS, BtABORH, L100.0100, L3890.6005, [id number] #### [facility] [address] [place], [address] ( Hemoglobin (Bld) [Mass/Vol] 13.4 g/dL Normal 12.0-15.0 [facility] Comment on above: Performed By: #### L 3890.6100, L509.8000, L3890.6300, L509.4005, L501.9985, BTS, BtABORH, L100.0100, L3890.6005, [id number] #### [facility] [address] [place], [address] IG% 0.300 Normal 0.0-0.9 [facility] Comment on above: Result Comment: IG% - Immature Granulocytes (promyelocytes, myelocytes and metamyelocytes) > 1% indicates that a LEFT SHIFT is Present. Performed By: #### L 3890.6100, L509.8000, L3890.6300, L509.4005, L501.9985, BTS, BtABORH, L100.0100, L3890.6005, [id number] #### [facility] [address] [place], [address] Lymphocytes/100 WBC (Bld) 25.5 % Normal 19-41 [facility] Comment on above: Performed By: #### L 3890.6100, L509.8000, L3890.6300, L509.4005, L501.9985, BTS, BtABORH, L100.0100, L3890.6005, [id number] #### [facility] [address] [place], [address] MCH (RBC) [Entitic mass] 28.0 pg Normal 27.0-32.0 [facility] Comment on above: Performed By: #### L 3890.6100, L509.8000, L3890.6300, L509.4005, L501.9985, BTS, BtABORH, L100.0100, L3890.6005, [id number] #### [facility] [address] [place], [address] MCHC (RBC) [Mass/Vol] 33.8 g/dL Normal 32-36 [facility] Comment on above: Performed By: #### L 3890.6100, L509.8000, L3890.6300, L509.4005, L501.9985, BTS, BtABORH, L100.0100, L3890.6005, [id number] #### [facility] [address] [place], [address] MCV (RBC) [Entitic vol] 82.8 fL Normal 81-99 [facility] Comment on above: Performed By: #### L 3890.6100, L509.8000, L3890.6300, L509.4005, L501.9985, BTS, BtABORH, L100.0100, L3890.6005, [id number] #### [facility] [address] [place], [address] Monocytes/100 WBC (Bld) 5.2 % Normal 0-10 [facility] Comment on above: Performed By: #### L 3890.6100, L509.8000, L3890.6300, L509.4005, L501.9985, BTS, BtABORH, L100.0100, L3890.6005, [id number] #### [facility] [address] [place], [address] Neutrophils/100 WBC (Bld) 67.8 % Normal 47-70 [facility] Comment on above: Performed By: #### L 3890.6100, L509.8000, L3890.6300, L509.4005, L501.9985, BTS, BtABORH, L100.0100, L3890.6005, [id number] #### [facility] [address] [place], [address] Nucleated RBC (Bld) [#/Vol] 0 10*3/uL Normal 0-5 [facility] Comment on above: Performed By: #### L 3890.6100, L509.8000, L3890.6300, L509.4005, L501.9985, BTS, BtABORH, L100.0100, L3890.6005, [id number] #### [facility] [address] [place], [address] Platelet mean volume (Bld) [Entitic vol] 10.0 fL Normal 6.2-12.0 [facility] Comment on above: Performed By: #### L 3890.6100, L509.8000, L3890.6300, L509.4005, L501.9985, BTS, BtABORH, L100.0100, L3890.6005, [id number] #### [facility] [address] [place], [address] Platelets (Bld) [#/Vol] 321 10*3/uL Normal 150-450 [facility] Comment on above: Performed By: #### L 3890.6100, L509.8000, L3890.6300, L509.4005, L501.9985, BTS, BtABORH, L100.0100, L3890.6005, [id number] #### [facility] [address] [place], [address] RBC (Bld) [#/Vol] 4.78 10*6/uL Normal 4.2-5.4 [facility] Comment on above: Performed By: #### L 3890.6100, L509.8000, L3890.6300, L509.4005, L501.9985, BTS, BtABORH, L100.0100, L3890.6005, [id number] #### [facility] [address] [place], [address] RDW SD 38.0 fl Normal 35.1-43.9 [facility] Comment on above: Performed By: #### L 3890.6100, L509.8000, L3890.6300, L509.4005, L501.9985, BTS, BtABORH, L100.0100, L3890.6005, [id number] #### [facility] [address] [place], [address] WBC (Bld) [#/Vol] 7.6 10*3/uL Normal 4.4-11.[address] [facility] Comment on above: Performed By: #### L 3890.6100, L509.8000, L3890.6300, L509.4005, L501.9985, BTS, BtABORH, L100.0100, L3890.6005, [id number] #### [facility] [address] [place], [address] HIV - WCHon 07-28-2024 HIV Non-Reactive Normal Nonreactive [facility] Comment on above: Order Comment: Reaso n for Exam: Performed By: #### L 3890.6100, L509.8000, L3890.6300, L509.4005, L501.9985, BTS, BtABORH, L100.0100, L3890.6005, [id number] ####[facility] [address] [place], [place], [address] Hemoglobin A1con 07-28-2024 HbA1c (Bld) [Mass fraction] 5.2 % Normal 3.8-5.6 [facility] Comment on above: Result Comment: Norm al < 5.7 % Prediabetic 5.7 - 6.4 % Diabetic >or= 6.5 % Please note range changes. Performed By: #### L 3890.6100, L509.8000, L3890.6300, L509.4005, L501.9985, BTS, BtABORH, L100.0100, L3890.6005, [id number] ####[facility] [address] [place], [place], [address] Hepatitis B Surface Antigeno n 07-28-2024 HEP B Surf Ag Non-Reactive Normal Nonreactive [facility] Comment on above: Order Comment: Reaso n for Exam: Performed By: #### L 3890.6100, L509.8000, L3890.6300, L509.4005, L501.9985, BTS, BtABORH, L100.0100, L3890.6005, [id number] ####[facility] [address] [place], [place], [address] Hepatitis C Antibodyon 07-28 Hepatitis C AB Non-Reactive Normal Nonreactive [facility] Comment on above: Order Comment: Reaso n for Exam: Result Comment: Non Reactive: < 0.8 Equivocal: >/= 0.8 to < 1.0 Reactive: >/= 1.0 The CDC requires that a reactive/equivocal HCV antibody result be sent out for confirmation. HCV Quant by PCR testing. Performed By: #### L 3890.6100, L509.8000, L3890.6300, L509.4005, L501.9985, BTS, BtABORH, L100.0100, L3890.6005, [id number] ####[facility] [address] [place], [address] L509.8000on 07-28-2024 Syphilis Abs Non-Reactive Normal [facility] Comment on above: Order Comment: Elidia badillo for Exam: Performed By: #### L 3890.6100, L509.8000, L3890.6300, L509.4005, L501.9985, BTS, BtABORH, L100.0100, L3890.6005, [id number] ####[facility] [address] 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 Is patient in pain?: No Allergies codeine Adverse Reaction (Severe, Verified 07/28/24 08:43) Vomiting Medications ???Medication ???Instructions ???Recorded ???Confirmed ???Type multivitamin no.47-iron fum 27 1 cap PO DAILY 02/24/23 07/28/24 History mg-folate no.1 1 mg-dha 300 mg capsule (PNV-DHA) sertraline 100 mg tablet 100 mg PO DAILY depression #30 10/02/23 07/28/24 Rx tabs prochlorperazine maleate 5 mg 5 mg PO Q6H PRN nausea and 06/29/24 07/28/24 Rx tablet (Compazine) vomiting #12 tabs ondansetron 4 mg disintegrating 4 mg PO Q8H PRN nausea and 06/30/24 07/28/24 Rx tablet vomiting #30 tabs Last Menstrual Period: 05/19/24 Zika: Zika virus screening: Negative : Yes Have you fallen in the past year?: No PFSH PFSH Medical History Rh negative status during Viral illness Chills Abdominal pain Encounter for preconception consultation Spotting affecting Headache Surgical History Status post vaginal delivery History of tonsillectomy [place] teeth removed History of placement of ear tubes Family History Grandmother Breast cancer Father Graves disease Other Heart disease Social History adopted: No household members: spouse and children number of children: 1 current occupational status: employed 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 current occupational exposures/hazards: No pets and animals: No history of recent travel: No sexually active: Yes Smoking Status: Never smoker alcohol intake: never substance use type: does not use well-balanced diet: daily or most days caffeine: Yes Type: coffee Number of servings: 1 eating out: 1-3 times/week during the past year weight has: decreased > 10 lbs what type of physical activity do you participate in: walking and yoga frequency: 3-4 times per week duration: 30-45 minutes/day marie/yarsani: Catholic seatbelt use: always do you feel safe at home: Yes 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 Date Name GA/Weeks Outcome Route Bth Weight Infant Gen Labor Lgth Anesthesia Del Locatn Provider FOB 09/25/23 Vcítor 38 live - full term vacuum 7#10 Male epidural [facility] [place] Delivery Date: 09/25/23 Last Updated by: Estrellita Chávez Vaccum delivery 2nd degree tear HPI NOB LMP 05/19 Details: ANAHY ESCALANTE is a 33 year old who presents for New OB visit. OB Visit RICHARD Calculator Estimated Delivery Date Method Current WG Current Estimate 02/23/25 LMP (Certain) 10w 0d Other Estimates 02/28/25 Ultrasound #1 9w 2d 02/28/25 Ultrasound #2 9w 2d Estimated Due Date: 02/23/25 Expected Delivery Route/Plan Labor Preferences- CB/BF classes: [] labor support person: [] labor intervention preferences: [] pain management options preferred: [] cut cord/dad catch: [] : [] PP control planned: [] discussed possible routes of delivery and associated risks: [] special requests: [] Specific Issue/Plans Covid status: [] Flu vaccine: [] Tdap vaccine: [] Rhogam: [] LARC form signed: [] Problem list reviewed and updated with the most current plan of care details and appropriate orders placed. Relevant counseling for the gestational age provided. Continue routine care and follow up unless otherwise noted in visit notes/problem list details Initial Weight: 209 lb Date -???-???-???-???-???-???- ???-???-???-???-???-???- EGA Weight BP Urine Prot -???-???-???-???-???-???- ???-???-???-???-???-???- Glucose FHR FuHt Pres Dilation -???-???-???-???-???-???- ???-???-???-???-???-???- Effaced St Visit Note 07/28/24 -???-???-???-???-???-???- ???-???-???-???-???-???- 10w 0d 209 lb (+0 oz) 137/82 -???-???-???-???-???-???- ???-???-???-???-???-???- 180 -???-??? (more content not included)... Normal [facility] Rubella IgGon 07-28-2024 Rubella IgG Reactive Normal Nonreactive [facility] Comment on above: Order Comment: Reaso n for Exam: Result Comment: Anti body Results Interpretation of Immune Status Non Reactive Presumed Non-Immune Equivocal Equivocal Reactive Presumed Immune Performed By: #### L 3890.6100, L509.8000, L3890.6300, L509.4005, L501.9985, BTS, BtABORH, L100.0100, L3890.6005, [id number] ####[facility] [address] [place], [place], [id number] Type AND Screenon 07-28-2024 Ab SCREEN GEL TNP Normal [facility] Comment on above: Performed By: #### L 3890.6100, L509.8000, L3890.6300, L509.4005, L501.9985, BTS, BtABORH, L100.0100, L3890.6005, [id number] #### [facility] [address] [place], [place], [id number] ABO and Rh group Nom (Bld) TNP Normal [facility] Comment on above: Performed By: #### L 3890.6100, L509.8000, L3890.6300, L509.4005, L501.9985, BTS, BtABORH, L100.0100, L3890.6005, [id number] #### [facility] [address] [place], [place], [id number] Transvaginal w/Preg USon Transvaginal w/Preg US [facility] Imaging Services [address] [place], [place] [id number] Transvaginal w/Preg US MR#: [id number] Acct: [id number] Name: QUINTENANAHYZEINA REID Rep #: [id number] : 1990 F 33 From: Monique badillo MD PCP: SPEEDY Taylor Status: REG CLI Study: Transvaginal w/Preg US Date of Exam: 07/08/24 Exam# [id number] Ordering Dr: Ivette Cornell [id number] HISTORY: viability, spotting in early . LMP 05/19/2024. TECHNIQUE: [No pelvic ultrasound was performed. 83 images. COMPARISON: CT 12/08/2023. FINDINGS: UTERUS: 9.8 x 6.2 x 5.2 cm. Cervix closed. RIGHT OVARY: 1.7 x 1.9 x 3.1 cm. No adnexal masses. LEFT OVARY: 2.1 x 2.5 x 4.2 cm. 2.1 cm corpus luteal cyst. FREE FLUID: None. INTRAUTERINE GESTATIONAL SAC: Single. Mean sac diameter 2 cm corresponding to 6 weeks 6 days. YOLK SAC: 3 mm. POLE: [place] rump length 5 mm corresponding to 6 weeks 3 days. ESTIMATED DELIVERY DATE: 02/26/2025. HEART MOTION: 116 bpm. US/Transvaginal w/Preg US IMPRESSION: Intrauterine with an estimated gestational age of 6 weeks 3 days and heart motion demonstrated. Small left ovarian corpus luteal cyst. Electronically Signed: Monique Montez MD at 15:02 EST Reading Location ID and State: [facility] / [place] Tel , Service support , CC: TIRE SORTER-C Noemi [place]; Dr. Ivette Cornell MD Cutting Table Operator First: Signed Normal [facility] Absolute lymphocyte countOrd ered By: Ivette Cornell on 10-02-2023 Lymphocytes Auto (Unsp spec) [#/Vol] 2.84 10*3/uL 0.83-4.51 [facility] Automated lymphocyte count a s percentage of total leukocytesOrdered By: Ivette Cornell on 10-02-2023 Lymphocytes/100 WBC Auto (Unsp spec) 30.2 % 19-41 [facility] Basophil percentageOrdered B y: Ivette Cornell on 10-02-2023 Basophils/100 WBC (Bld) 0.7 % 0-1 [facility] Eosinophils/100 WBC (Bld) 1.3 % 0-5 [facility] Hemoglobin (Bld) [Mass/Vol] 10.5 g/dL 12.0-15.0 [facility] Monocytes/100 WBC (Bld) 8.6 % 0-10 [facility] Neutrophils (Bld) [#/Vol] 5.5 10*3/uL 2.0-7.7 [facility] Neutrophils/100 WBC (Bld) 58.1 % 47-70 [facility] WBC (Bld) [#/Vol] 9.4 10*3/uL 4.4-11.[address] [facility] Determination of erythrocyte mean corpuscular volume (MCV)Ordered By: Ivette Cornell on 10-02-2023 MCV (RBC) [Entitic vol] 87.4 fL 81-99 [facility] Erythrocyte distribution wid th ratioOrdered By: Ivette Cornell on 10-02-2023 Erythrocyte distribution width (RBC) [Ratio] 13.3 % 11.6-14.6 [facility] Erythrocyte distribution wid th standard deviationOrdered By: Ivette Cornell on 10-02-2023 Erythrocyte distribution width (RBC) [Entitic vol] 42.3 fL 35.1-43.9 [facility] Hematocrit Auto (Bld) [Volum e fraction]Ordered By: Ivette Cornell on 10-02-2023 Hematocrit (Bld) [Volume fraction] 32.7 % 37-47 [facility] Immature granulocytes/100 WB C Auto (Bld)Ordered By: Ivette Cornell on 10-02-2023 Immature granulocytes/100 WBC (Bld) 1.100 % 0.0-0.9 [facility] Comment on above: IG% - Immature Granu locytes (promyelocytes, myelocytes and metamyelocytes) > 1% indicates that a LEFT SHIFT is Present. Laboratory - Hematology and Cell countsOrdered By: Ivette Cornell on 10-02-2023 MCH (RBC) [Entitic mass] 28.1 pg 27.0-32.0 [facility] MCHC (RBC) [Mass/Vol] 32.1 g/dL 32-36 [facility] Nucleated RBC/100 WBC (Bld) [Ratio] 0 % 0-5 [facility] Platelet mean volume (Bld) [Entitic vol] 8.9 fL 6.2-12.0 [facility] Platelets (Bld) [#/Vol] 548 10*3/uL 150-450 [facility] RBC Auto (Bld) [#/Vol]Ordere d By: Ivette Cornell on 10-02-2023 RBC (Bld) [#/Vol] 3.74 10*6/uL 4.2-5.4 [facility] Serum or plasma thyroid stim ulating hormone (TSH) measurement (units/volume)Ordered By: Ivette Cornell on 10-02-2023 TSH Qn 1.14 uIU/mL 0.358-3.74 [facility] Thin prep Papanicolaou smear with manual screeningOrdered By: Ivette Cornell on 10-02-2023 Thin prep Papanicolaou smear with manual screening 1.14 ng/dL 0.76-1.46 [facility] Absolute lymphocyte countOrd ered By: Lizzeth Rodriguez on 09-25-2023 Lymphocytes Auto (Unsp spec) [#/Vol] 1.20 10*3/uL 0.83-4.51 [facility] Automated lymphocyte count a s percentage of total leukocytesOrdered By: Lizzeth Rodriguez on 09-25-2023 Lymphocytes/100 WBC Auto (Unsp spec) 6.1 % 19-41 [facility] Basophil percentageOrdered B y: Lizzeth Rodriguez on 09-25-2023 Basophils/100 WBC (Bld) 0.3 % 0-1 [facility] Eosinophils/100 WBC (Bld) 0.1 % 0-5 [facility] Hemoglobin (Bld) [Mass/Vol] 11.1 g/dL 12.0-15.0 [facility] Monocytes/100 WBC (Bld) 5.2 % 0-10 [facility] Neutrophils (Bld) [#/Vol] 17.3 10*3/uL 2.0-7.7 [facility] Neutrophils/100 WBC (Bld) 87.7 % 47-70 [facility] WBC (Bld) [#/Vol] 19.7 10*3/uL 4.4-11.0 [facility] Determination of erythrocyte mean corpuscular volume (MCV)Ordered By: Lizzeth Rodriguez on 09-25-2023 MCV (RBC) [Entitic vol] 85.9 fL 81-99 [facility] Erythrocyte distribution wid th ratioOrdered By: Lizzeth Rodriguez on 09-25-2023 Erythrocyte distribution width (RBC) [Ratio] 13.2 % 11.6-14.6 [facility] Erythrocyte distribution wid th standard deviationOrdered By: Lizzeth Rodriguez on 09-25-2023 Erythrocyte distribution width (RBC) [Entitic vol] 40.5 fL 35.1-43.9 [facility] Hematocrit Auto (Bld) [Volum e fraction]Ordered By: Lizzeth Rodriguez on 09-25-2023 Hematocrit (Bld) [Volume fraction] 33.0 % 37-47 [facility] Immature granulocytes/100 WB C Auto (Bld)Ordered By: Lizzeth Rodriguez on 09-25-2023 Immature granulocytes/100 WBC (Bld) 0.600 % 0.0-0.9 [facility] Comment on above: IG% - Immature Granu locytes (promyelocytes, myelocytes and metamyelocytes) > 1% indicates that a LEFT SHIFT is Present. Laboratory - Hematology and Cell countsOrdered By: Lizzeth Rodriguez on 09-25-2023 MCH (RBC) [Entitic mass] 28.9 pg 27.0-32.0 [facility] MCHC (RBC) [Mass/Vol] 33.6 g/dL 32-36 [facility] Nucleated RBC/100 WBC (Bld) [Ratio] 0 % 0-5 [facility] Platelet mean volume (Bld) [Entitic vol] 10.1 fL 6.2-12.0 [facility] Platelets (Bld) [#/Vol] 199 10*3/uL 150-450 [facility] RBC Auto (Bld) [#/Vol]Ordere d By: Lizzeth Rodriguez on 09-25-2023 RBC (Bld) [#/Vol] 3.84 10*6/uL 4.2-5.4 [facility] Serum Treponema species anti body detectionOrdered By: Ivette Cornell on 09-24-2023 Treponema sp Ab Ql (S) Non-Reactive [facility] Absolute lymphocyte countOrd ered By: Lizzeth Ardonrangel on 09-14-2023 Lymphocytes Auto (Unsp spec) [#/Vol] 2.09 10*3/uL 0.83-4.51 [facility] Automated lymphocyte count a s percentage of total leukocytesOrdered By: Lizzeth Michael on 09-14-2023 Lymphocytes/100 WBC Auto (Unsp spec) 23.0 % 19-41 [facility] Basophil percentageOrdered B y: Lizzeth Michael on 09-14-2023 Basophils/100 WBC (Bld) 0.3 % 0-1 [facility] Bilirubin [Mass/Vol] 0.50 mg/dL 0.20-1.00 [facility] Comment on above: For patients on eltr ombopag therapy, use of Dimension [place] TBIL is not recommended. Chloride [Moles/Vol] 108 mmol/L 98-107 [facility] Eosinophils/100 WBC (Bld) 1.2 % 0-5 [facility] Glucose [Mass/Vol] 114 mg/dL 74-[address] [facility] Comment on above: Fasting Glucose resu lt from 100 to 125 mg/dL suggests IMPAIRED HOMEOSTASIS per A.D.A. criteria. Hemoglobin (Bld) [Mass/Vol] 12.0 g/dL 12.0-15.0 [facility] Monocytes/100 WBC (Bld) 5.9 % 0-10 [facility] Neutrophils (Bld) [#/Vol] 6.3 10*3/uL 2.0-7.7 [facility] Neutrophils/100 WBC (Bld) 69.2 % 47-70 [facility] Potassium [Moles/Vol] 3.7 mmol/L 3.5-5.1 [facility] Protein [Mass/Vol] 6.4 g/dL 6.4-8.[address] [facility] Sodium [Moles/Vol] 138 mmol/L 136-[address] [facility] WBC (Bld) [#/Vol] 9.1 10*3/uL 4.4-11.[address] [facility] Determination of erythrocyte mean corpuscular volume (MCV)Ordered By: Lizzeth Rodriguez on 09-14-2023 MCV (RBC) [Entitic vol] 85.7 fL 81-99 [facility] Erythrocyte distribution wid th ratioOrdered By: Lizzeth Rodriguez on 09-14-2023 Erythrocyte distribution width (RBC) [Ratio] 13.1 % 11.6-14.6 [facility] Erythrocyte distribution wid th standard deviationOrdered By: Lizzeth Rodriguez on 09-14-2023 Erythrocyte distribution width (RBC) [Entitic vol] 40.1 fL 35.1-43.9 [facility] Hematocrit Auto (Bld) [Volum e fraction]Ordered By: Lizzeth Rodriguez on 09-14-2023 Hematocrit (Bld) [Volume fraction] 36.6 % 37-47 [facility] Immature granulocytes/100 WB C Auto (Bld)Ordered By: Lizzeth Rodriguez on 09-14-2023 Immature granulocytes/100 WBC (Bld) 0.400 % 0.0-0.9 [facility] Comment on above: IG% - Immature Granu locytes (promyelocytes, myelocytes and metamyelocytes) > 1% indicates that a LEFT SHIFT is Present. Laboratory - Chemistry and C hemistry - challengeOrdered By: Lizzeth Rodriguez on 09-14-2023 Albumin/Globulin [Mass ratio] 0.8 {ratio} 0.9-2.4 [facility] ALP [Catalytic activity/Vol] 88 U/L 45-117 [facility] ALT [Catalytic activity/Vol] 10 U/L 13-56 [facility] CO2 [Moles/Vol] 22.0 mmol/L 21.0-32.0 [facility] Globulin (S) [Mass/Vol] 3.5 g/dL 2.2-4.2 [facility] Urea nitrogen/Creatinine [Mass ratio] 8.1 mg/mg 10-20 [facility] - Chemistry and C hemistry - challengeon 09-14-2023 Glucose Ql (U) Negative [facility] - Hematology and Cell countsOrdered By: Lizzeth Rodriguez on 09-14-2023 MCH (RBC) [Entitic mass] 28.1 pg 27.0-32.0 [facility] MCHC (RBC) [Mass/Vol] 32.8 g/dL 32-36 [facility] Nucleated RBC/100 WBC (Bld) [Ratio] 0 % 0-5 [facility] Platelet mean volume (Bld) [Entitic vol] 10.1 fL 6.2-12.0 [facility] Platelets (Bld) [#/Vol] 240 10*3/uL 150-450 [facility] - Urinalysison Protein Ql (U) Negative [facility] No Panel InformationOrdered By: Lizzeth Rodriguez on 09-14-2023 Vaginal Amniotic Fluid Detection Negative Negative [facility] Comment on above: Amniotic fluid not p resent indicates No Rupture of FetalMembranes at time of specimen collection. Estimated GFR (MDRD) Amer 142 mL/min >60 [facility] Comment on above: GFR Calc Estimated GFR (MDRD) Non-Af Amer 117 mL/min >60 [facility] Comment on above: Non- GFR Calc RBC Auto (Bld) [#/Vol]Ordere d By: Lizzeth Rodriguez on 09-14-2023 RBC (Bld) [#/Vol] 4.27 10*6/uL 4.2-5.4 [facility] Serum or plasma calcium rachael urement (mass/volume)Ordered By: Lizzeth Rodriguez on 09-14-2023 Calcium [Mass/Vol] 8.9 mg/dL 8.5-10.[address] [facility] Serum or plasma creatinine m easurement (mass/volume)Ordered By: Lizzeth Rodriguez on 09-14-2023 Creatinine [Mass/Vol] 0.62 mg/dL 0.55-1.02 [facility] Comment on above: The validity of the calculated GFR & GFRAA in patients over 70 years has not been determined. Clinical correlation is essential. Serum or plasma urea nitroge n measurement (mass/volume)Ordered By: Lizzeth Rodriguez on 09-14-2023 Urea nitrogen [Mass/Vol] 5 mg/dL 7-18 [facility] Serum or plasma uric acid me asurement (mass/volume)Ordered By: Lizzeth Rodriguez on 09-14-2023 Urate [Mass/Vol] 3.8 mg/dL 2.6-6.0 [facility] Comment on above: The drugs N-Acetylcy steine and Metamizole may falsely depress this assay. Thin prep Papanicolaou smear with manual screeningOrdered By: Lizzeth Rodriguez on 09-14-2023 Thin prep Papanicolaou smear with manual screening < 6.0 mg/dL 0.0-11.8 [facility] Thin prep Papanicolaou smear with manual screening 2.9 g/dL 3.2-5.0 [facility] Thin prep Papanicolaou smear with manual screening 14 U/L 15-37 [facility] Thin prep Papanicolaou smear with manual screening 8 5-15 [facility] Urine creatinine measurement (mass/volume)Ordered By: Lizzeth Rodriguez on 09-14-2023 Creatinine (U) [Mass/Vol] 18.50 mg/dL NO RANGE EST. [facility] Urine protein/creatinine mas s ratioOrdered By: Lizzeth Rodriguez on 09-14-2023 Protein/Creatinine (U) [Mass ratio] TNP [facility] Comment on above: Test not performed Laboratory - Chemistry and C hemistry - challengeon 09-08-2023 Glucose Ql (U) Negative [facility] - Urinalysison Protein Ql (U) Negative [facility] No Panel InformationOrdered By: Jesus Marinelli on 09-08-2023 Group B Streptococcus Culture Group B Beta Streptococcus is not isolated. [facility] Group B Streptococcus Culture Group B Beta Streptococcus is not isolated. [facility] Specimen Comment (Misc) Not Reportable [facility] Thin prep Papanicolaou smear with manual screeningOrdered By: Jesus Marinelli on 09-08-2023 Thin prep Papanicolaou smear with manual screening Negative Negative [facility] - Chemistry and C hemistry - challengeon 08-31-2023 Glucose Ql (U) Negative [facility] - Urinalysison Protein Ql (U) Negative [facility] Absolute lymphocyte countOrd ered By: Batsheva Krishna on 08-24-2023 Lymphocytes Auto (Unsp spec) [#/Vol] 2.67 10*3/uL 0.83-4.51 [facility] Automated lymphocyte count a s percentage of total leukocytesOrdered By: Batsheva Krishna on 08-24-2023 Lymphocytes/100 WBC Auto (Unsp spec) 27.5 % 19-41 [facility] Basophil percentageOrdered B y: Batsheva Krishna on 08-24-2023 Basophils/100 WBC (Bld) 0.4 % 0-1 [facility] Bilirubin [Mass/Vol] 0.30 mg/dL 0.20-1.00 [facility] Comment on above: For patients on eltr ombopag therapy, use of Dimension [place] TBIL is not recommended. Chloride [Moles/Vol] 108 mmol/L 98-107 [facility] Eosinophils/100 WBC (Bld) 2.0 % 0-5 [facility] Glucose [Mass/Vol] 85 mg/dL 74-[address] [facility] Hemoglobin (Bld) [Mass/Vol] 12.4 g/dL 12.0-15.0 [facility] Monocytes/100 WBC (Bld) 5.7 % 0-10 [facility] Neutrophils (Bld) [#/Vol] 6.2 10*3/uL 2.0-7.7 [facility] Neutrophils/100 WBC (Bld) 64.0 % 47-70 [facility] Potassium [Moles/Vol] 3.8 mmol/L 3.5-5.1 [facility] Protein [Mass/Vol] 6.3 g/dL 6.4-8.[address] [facility] Sodium [Moles/Vol] 138 mmol/L 136-[address] [facility] WBC (Bld) [#/Vol] 9.7 10*3/uL 4.4-11.[address] [facility] Determination of erythrocyte mean corpuscular volume (MCV)Ordered By: Batsheva Krishna on 08-24-2023 MCV (RBC) [Entitic vol] 87.3 fL 81-99 [facility] Erythrocyte distribution wid th ratioOrdered By: Batshevachaz Krishna on 08-24-2023 Erythrocyte distribution width (RBC) [Ratio] 13.1 % 11.6-14.6 [facility] Erythrocyte distribution wid th standard deviationOrdered By: Batsheva Krishna on 08-24-2023 Erythrocyte distribution width (RBC) [Entitic vol] 41.2 fL 35.1-43.9 [facility] Hematocrit Auto (Bld) [Volum e fraction]Ordered By: Batsheva Krishna on 08-24-2023 Hematocrit (Bld) [Volume fraction] 36.5 % 37-47 [facility] Immature granulocytes/100 WB C Auto (Bld)Ordered By: Batsheva Krishna on 08-24-2023 Immature granulocytes/100 WBC (Bld) 0.400 % 0.0-0.9 [facility] Comment on above: IG% - Immature Granu locytes (promyelocytes, myelocytes and metamyelocytes) > 1% indicates that a LEFT SHIFT is Present. Laboratory - Chemistry and C hemistry - challengeon 08-24-2023 Glucose Ql (U) Negative [facility] - Chemistry and C hemistry - challengeOrdered By: Batsheva Krishna on 08-24-2023 Albumin/Globulin [Mass ratio] 0.8 {ratio} 0.9-2.4 [facility] ALP [Catalytic activity/Vol] 67 U/L 45-117 [facility] ALT [Catalytic activity/Vol] 14 U/L 13-56 [facility] CO2 [Moles/Vol] 24.0 mmol/L 21.0-32.0 [facility] Globulin (S) [Mass/Vol] 3.5 g/dL 2.2-4.2 [facility] Urea nitrogen/Creatinine [Mass ratio] 9.0 mg/mg 10-20 [facility] - Hematology and Cell countsOrdered By: Batsheva Krishna on 08-24-2023 MCH (RBC) [Entitic mass] 29.7 pg 27.0-32.0 [facility] MCHC (RBC) [Mass/Vol] 34.0 g/dL 32-36 [facility] Nucleated RBC/100 WBC (Bld) [Ratio] 0 % 0-5 [facility] Platelet mean volume (Bld) [Entitic vol] 9.8 fL 6.2-12.0 [facility] Platelets (Bld) [#/Vol] 228 10*3/uL 150-450 [facility] - Urinalysison Protein Ql (U) Negative [facility] No Panel InformationOrdered By: Batsheva Krishna on 08-24-2023 Estimated GFR (MDRD) Amer 160 mL/min >60 [facility] Comment on above: GFR Calc Estimated GFR (MDRD) Non-Af Amer 132 mL/min >60 [facility] Comment on above: Non- GFR Calc RBC Auto (Bld) [#/Vol]Ordere d By: Batsheva Krishna on 08-24-2023 RBC (Bld) [#/Vol] 4.18 10*6/uL 4.2-5.4 [facility] Serum or plasma calcium rachael urement (mass/volume)Ordered By: Batsheva Krishna on 08-24-2023 Calcium [Mass/Vol] 8.9 mg/dL 8.5-10.[address] [facility] Serum or plasma creatinine m easurement (mass/volume)Ordered By: Batsheva Krishna on 08-24-2023 Creatinine [Mass/Vol] 0.56 mg/dL 0.55-1.02 [facility] Comment on above: The validity of the calculated GFR & GFRAA in patients over 70 years has not been determined. Clinical correlation is essential. Serum or plasma urea nitroge n measurement (mass/volume)Ordered By: Batsheva Krishna on 08-24-2023 Urea nitrogen [Mass/Vol] 5 mg/dL 7-18 [facility] Thin prep Papanicolaou smear with manual screeningOrdered By: Batsheva Krishna on 08-24-2023 Thin prep Papanicolaou smear with manual screening 2.8 g/dL 3.2-5.0 [facility] Thin prep Papanicolaou smear with manual screening 8 U/L 15-37 [facility] Thin prep Papanicolaou smear with manual screening 6 5-15 [facility] Laboratory - Chemistry and C hemistry - challengeon 08-17-2023 Glucose Ql (U) Negative [facility] - Urinalysison Protein Ql (U) Negative [facility] Absolute lymphocyte countOrd ered By: Lizzeth Rodriguez on 08-05-2023 Lymphocytes Auto (Unsp spec) [#/Vol] 1.84 10*3/uL 0.83-4.51 [facility] Automated lymphocyte count a s percentage of total leukocytesOrdered By: Lizzeth Rodriguez on 08-05-2023 Lymphocytes/100 WBC Auto (Unsp spec) 20.6 % 19-41 [facility] Basophil percentageOrdered B y: Lizzeth Rodriguez on 08-05-2023 Basophils/100 WBC (Bld) 0.3 % 0-1 [facility] Bilirubin [Mass/Vol] 0.30 mg/dL 0.20-1.00 [facility] Comment on above: For patients on eltr ombopag therapy, use of Dimension [place] TBIL is not recommended. Chloride [Moles/Vol] 109 mmol/L 98-107 [facility] Eosinophils/100 WBC (Bld) 0.9 % 0-5 [facility] Glucose [Mass/Vol] 80 mg/dL 74-[address] [facility] Hemoglobin (Bld) [Mass/Vol] 12.2 g/dL 12.0-15.0 [facility] Monocytes/100 WBC (Bld) 5.8 % 0-10 [facility] Neutrophils (Bld) [#/Vol] 6.4 10*3/uL 2.0-7.7 [facility] Neutrophils/100 WBC (Bld) 72.0 % 47-70 [facility] Potassium [Moles/Vol] 3.7 mmol/L 3.5-5.1 [facility] Protein [Mass/Vol] 6.6 g/dL 6.4-8.[address] [facility] Sodium [Moles/Vol] 137 mmol/L 136-[address] [facility] WBC (Bld) [#/Vol] 8.9 10*3/uL 4.4-11.[address] [facility] Determination of erythrocyte mean corpuscular volume (MCV)Ordered By: Lizzeth Rodriguez on 08-05-2023 MCV (RBC) [Entitic vol] 85.3 fL 81-99 [facility] Erythrocyte distribution wid th ratioOrdered By: Lizzeth Rodriguez on 08-05-2023 Erythrocyte distribution width (RBC) [Ratio] 12.9 % 11.6-14.6 [facility] Erythrocyte distribution wid th standard deviationOrdered By: Lizzeth Rodriguez on 08-05-2023 Erythrocyte distribution width (RBC) [Entitic vol] 39.6 fL 35.1-43.9 [facility] Hematocrit Auto (Bld) [Volum e fraction]Ordered By: Lizzeth Rodriguez on 08-05-2023 Hematocrit (Bld) [Volume fraction] 36.0 % 37-47 [facility] Immature granulocytes/100 WB C Auto (Bld)Ordered By: Lizzeth Rodriguez on 08-05-2023 Immature granulocytes/100 WBC (Bld) 0.400 % 0.0-0.9 [facility] Comment on above: IG% - Immature Granu locytes (promyelocytes, myelocytes and metamyelocytes) > 1% indicates that a LEFT SHIFT is Present. Laboratory - Chemistry and C hemistry - challengeOrdered By: Lizzeth Rodriguez on 08-05-2023 Albumin/Globulin [Mass ratio] 0.8 {ratio} 0.9-2.4 [facility] ALP [Catalytic activity/Vol] 59 U/L 45-117 [facility] ALT [Catalytic activity/Vol] 12 U/L 13-56 [facility] CO2 [Moles/Vol] 21.0 mmol/L 21.0-32.0 [facility] Cobalamin (Vitamin B12) [Mass/Vol] 342 pg/mL 211-911 [facility] Globulin (S) [Mass/Vol] 3.6 g/dL 2.2-4.2 [facility] Urea nitrogen/Creatinine [Mass ratio] 15.1 mg/mg 10-20 [facility] Laboratory - Hematology and Cell countsOrdered By: Lizzeth Rodriguez on 08-05-2023 MCH (RBC) [Entitic mass] 28.9 pg 27.0-32.0 [facility] MCHC (RBC) [Mass/Vol] 33.9 g/dL 32-36 [facility] Nucleated RBC/100 WBC (Bld) [Ratio] 0 % 0-5 [facility] Platelets (Bld) [#/Vol] 283 10*3/uL 150-450 [facility] No Panel InformationOrdered By: Lizzeth Rodriguez on 08-05-2023 Estimated GFR (MDRD) Amer 235 mL/min >60 [facility] Comment on above: GFR Calc Estimated GFR (MDRD) Non-Af Amer 194 mL/min >60 [facility] Comment on above: Non- GFR Calc Platelet mean volume Willian-Ec ker (Bld) [Entitic vol]Ordered By: Lizzeth Rodriguez on 08-05-2023 Platelet mean volume (Bld) [Entitic vol] 9.9 fL 6.2-12.0 [facility] RBC Auto (Bld) [#/Vol]Ordere d By: Lizzeth Rodriguez on 08-05-2023 RBC (Bld) [#/Vol] 4.22 10*6/uL 4.2-5.4 [facility] Serum or plasma calcitriol m easurement (mass/volume)Ordered By: Lizzeth Rodriguez on 08-05-2023 1,25-dihydroxyvitamin D3 [Mass/Vol] 119.0 pg/mL 24.8-81.5 [facility] [facility] Comment on above: Performed at: [employer] [id number] Director: Carrington Granados MD, Phone: [phone] Serum or plasma calcium rachael urement (mass/volume)Ordered By: Lizzeth Rodriguez on 08-05-2023 Calcium [Mass/Vol] 8.8 mg/dL 8.5-10.[address] [facility] Serum or plasma creatinine m easurement (mass/volume)Ordered By: Lizzeth Rodriguez on 08-05-2023 Creatinine [Mass/Vol] 0.40 mg/dL 0.55-1.02 [facility] Comment on above: The validity of the calculated GFR & GFRAA in patients over 70 years has not been determined. Clinical correlation is essential. Serum or plasma thiamine gerald surement (mass/volume)Ordered By: Lizzeth Rodriguez on 08-05-2023 Thiamine [Mass/Vol] 89.2 nmol/L 66.5-200.0 [facility] Comment on above: Performed at: [facility] [place], [place] [id number] Director: Carrington Granados MD, Phone: [phone] Serum or plasma thyroid stim ulating hormone (TSH) measurement (units/volume)Ordered By: Lizzeth Rodriguez on 08-05-2023 TSH Qn 0.83 uIU/mL 0.358-3.74 [facility] Serum or plasma urea nitroge n measurement (mass/volume)Ordered By: Lizzeth Ardonrangel on 08-05-2023 Urea nitrogen [Mass/Vol] 6 mg/dL 7-18 [facility] Thin prep Papanicolaou smear with manual screeningOrdered By: Lizzeth Ardonrangel on 08-05-2023 Thin prep Papanicolaou smear with manual screening 3.0 g/dL 3.2-5.0 [facility] Thin prep Papanicolaou smear with manual screening 11 U/L 15-37 [facility] Thin prep Papanicolaou smear with manual screening 7 5-15 [facility] Laboratory - Chemistry and C hemistry - challengeon 08-03-2023 Glucose Ql (U) Negative [facility] Laboratory - Urinalysison Protein Ql (U) Negative [facility] Laboratory - Chemistry and C hemistry - challengeon 07-20-2023 Glucose Ql (U) Negative [facility] Laboratory - Urinalysison Protein Ql (U) Negative [facility] Laboratory - Chemistry and C hemistry - challengeon 07-03-2023 Glucose Ql (U) Negative [facility] Laboratory - Urinalysison Protein Ql (U) Negative [facility] Absolute lymphocyte countOrd ered By: Ivette Huangcori on 07-02-2023 Lymphocytes Auto (Unsp spec) [#/Vol] 2.23 10*3/uL 0.83-4.51 [facility] Basophil percentageOrdered B y: Ivette Huangcori on 07-02-2023 Basophils/100 WBC (Bld) 0.3 % 0-1 [facility] Eosinophils/100 WBC (Bld) 1.0 % 0-5 [facility] Neutrophils (Bld) [#/Vol] 6.8 10*3/uL 2.0-7.7 [facility] Neutrophils/100 WBC (Bld) 70.4 % 47-70 [facility] WBC (Bld) [#/Vol] 9.6 10*3/uL 4.4-11.[address] [facility] Blood erythrocytes count (nu mber/volume)Ordered By: Ivette Cornell on 07-02-2023 RBC (Bld) [#/Vol] 4.17 10*6/uL 4.2-5.4 [facility] Blood hemoglobin measurement (mass/volume)Ordered By: Ivette Cornell on 07-02-2023 Hemoglobin (Bld) [Mass/Vol] 12.0 g/dL 12.0-15.0 [facility] Blood lymphocytes/100 leukoc ytesOrdered By: Ivette Cornell on 07-02-2023 Lymphocytes/100 WBC (Bld) 23.2 % 19-41 [facility] Blood monocytes/100 leukocyt esOrdered By: Ivette Cornell on 07-02-2023 Monocytes/100 WBC (Bld) 4.7 % 0-10 [facility] Blood platelet mean volumeOr dered By: Ivette Cornell on 07-02-2023 Platelet mean volume (Bld) [Entitic vol] 9.2 fL 6.2-12.0 [facility] Determination of erythrocyte mean corpuscular volume (MCV)Ordered By: Ievtte Cornell on 07-02-2023 MCV (RBC) [Entitic vol] 85.6 fL 81-99 [facility] Gestational diabetes screen 1-hour screen with 50g oral glucose loadOrdered By: Ivette Cornell on 07-02-2023 Glucose 1 Hr post 50 g glucose PO [Mass/Vol] 120 mg/dL 70-140 [facility] HIV 1 and HIV-2 antibody ass ay with HIV-1 p24 antigen detectionOrdered By: Ivette Cornell on 07-02-2023 HIV 1+2 Ab+HIV1 p24 Ag IA Ql Non-Reactive Nonreactive [facility] Hematocrit Auto (Bld) [Volum e fraction]Ordered By: Ivette Cornell on 07-02-2023 Hematocrit (Bld) [Volume fraction] 35.7 % 37-47 [facility] Laboratory - Hematology and Cell countsOrdered By: Ivette Cornell on 07-02-2023 Erythrocyte distribution width (RBC) [Entitic vol] 39.3 fL 35.1-43.9 [facility] Erythrocyte distribution width (RBC) [Ratio] 12.6 % 11.6-14.6 [facility] Immature granulocytes/100 WBC (Bld) 0.400 % 0.0-0.9 [facility] Comment on above: IG% - Immature Granu locytes (promyelocytes, myelocytes and metamyelocytes) > 1% indicates that a LEFT SHIFT is Present. MCH (RBC) [Entitic mass] 28.8 pg 27.0-32.0 [facility] Nucleated RBC/100 WBC (Bld) [Ratio] 0 % 0-5 [facility] MCHC Auto (RBC) [Mass/Vol]Or dered By: Ivette Cornell on 07-02-2023 MCHC (RBC) [Mass/Vol] 33.6 g/dL 32-36 [facility] Platelets bldOrdered By: Markie Cornell on 07-02-2023 Platelets (Bld) [#/Vol] 324 10*3/uL 150-450 [facility] Serum Treponema species anti body detectionOrdered By: Ivette Cornell on 07-02-2023 Treponema sp Ab Ql (S) Non-Reactive [facility] Laboratory - Chemistry and C hemistry - challengeon 06-03-2023 Glucose Ql (U) Negative [facility] Laboratory - Urinalysison Protein Ql (U) Negative [facility] Laboratory - Chemistry and C hemistry - challengeon 05-05-2023 Glucose Ql (U) Negative [facility] Laboratory - Urinalysison Protein Ql (U) Negative [facility] Laboratory - Chemistry and C hemistry - challengeon 04-03-2023 Glucose Ql (U) Negative [facility] Laboratory - Urinalysison Protein Ql (U) Negative [facility] Gestational diabetes screen 1-hour screen with 50g oral glucose loadOrdered By: Ivette Cornell on 03-30-2023 Glucose 1 Hr post 50 g glucose PO [Mass/Vol] 132 mg/dL 70-140 [facility] Chlamydia trachomatis rRNA d etection by probe and target amplification methodOrdered By: Ivette Cornell on 03-05-2023 C. trachomatis rRNA TRISTIAN+probe Ql (Unsp spec) Negative Negative [facility] Culture, urineOrdered By: Rob Cornell on 03-05-2023 Bacteria identified Cx Nom (U) Culture exhibits no growth. [facility] Laboratory - Microbiology an d Antimicrobial susceptibilityOrdered By: Ivette Cornell on 03-05-2023 N. gonorrhoeae DNA TRISTIAN+probe Ql (Unsp spec) Negative Negative [facility] Comment on above: Performed at: [address] [id number] Director: Ning Humphreys MD, Phone: [phone] Serum or plasma choriogonado tropin detectionOrdered By: Ivette Cornell on 02-26-2023 HCG ( [place]) [place] [address] mIU/mL <4 [facility] Comment on above: hCG levels with Gest ational AgeGestational Age hCG mIU/mL (IU/L)0.2 - 1 week 5 - 501-2 weeks 50 - 5002-3 weeks 100 - 02564-6 weeks 500 - 174434-7 weeks 1000 - 579675-8 weeks 84370 - 100,0006-8 weeks 98323 - 200,0002-3 months 68407 - 100,000 Absolute lymphocyte countOrd ered By: Ivette Cornell on 02-24-2023 Lymphocytes Auto (Unsp spec) [#/Vol] 2.51 10*3/uL 0.83-4.51 [facility] Basophil percentageOrdered B y: Ivette Cornell on 02-24-2023 Basophils/100 WBC (Bld) 0.5 % 0-1 [facility] Eosinophils/100 WBC (Bld) 1.0 % 0-5 [facility] Neutrophils (Bld) [#/Vol] 7.6 10*3/uL 2.0-7.7 [facility] Neutrophils/100 WBC (Bld) 69.2 % 47-70 [facility] WBC (Bld) [#/Vol] 11.0 10*3/uL 4.4-11.0 [facility] Blood erythrocytes count (nu mber/volume)Ordered By: Ivette Cornell on 02-24-2023 RBC (Bld) [#/Vol] 4.66 10*6/uL 4.2-5.4 [facility] Blood hemoglobin measurement (mass/volume)Ordered By: Ivette Cornell on 02-24-2023 Hemoglobin (Bld) [Mass/Vol] 13.2 g/dL 12.0-15.0 [facility] Blood lymphocytes/100 leukoc ytesOrdered By: Ivette Cornell on 02-24-2023 Lymphocytes/100 WBC (Bld) 22.9 % 19-41 [facility] Blood monocytes/100 leukocyt esOrdered By: Ivette Cornell on 02-24-2023 Monocytes/100 WBC (Bld) 6.1 % 0-10 [facility] Blood platelet mean volumeOr dered By: Ivette Cornell on 02-24-2023 Platelet mean volume (Bld) [Entitic vol] 9.5 fL 6.2-12.0 [facility] Determination of erythrocyte mean corpuscular volume (MCV)Ordered By: Ivette Cornell on 02-24-2023 MCV (RBC) [Entitic vol] 84.8 fL 81-99 [facility] HIV 1 and HIV-2 antibody ass ay with HIV-1 p24 antigen detectionOrdered By: Ivetet Cornell on 02-24-2023 HIV 1+2 Ab+HIV1 p24 Ag IA Ql Non-Reactive Nonreactive [facility] Hematocrit Auto (Bld) [Volum e fraction]Ordered By: Ivette Cornell on 02-24-2023 Hematocrit (Bld) [Volume fraction] 39.5 % 37-47 [facility] Laboratory - Hematology and Cell countsOrdered By: Ivette Cornell on 02-24-2023 Erythrocyte distribution width (RBC) [Entitic vol] 38.9 fL 35.1-43.9 [facility] Erythrocyte distribution width (RBC) [Ratio] 12.7 % 11.6-14.6 [facility] Immature granulocytes/100 WBC (Bld) 0.300 % 0.0-0.9 [facility] Comment on above: IG% - Immature Granu locytes (promyelocytes, myelocytes and metamyelocytes) > 1% indicates that a LEFT SHIFT is Present. MCH (RBC) [Entitic mass] 28.3 pg 27.0-32.0 [facility] Nucleated RBC/100 WBC (Bld) [Ratio] 0 % 0-5 [facility] MCHC Auto (RBC) [Mass/Vol]Or dered By: Ivette Cornell on 02-24-2023 MCHC (RBC) [Mass/Vol] 33.4 g/dL 32-36 [facility] No Panel InformationOrdered By: Ivette Cornell on 02-24-2023 Hepatitis B Surface Antigen Non-Reactive Nonreactive [facility] Hepatitis C Antibody Non-Reactive Nonreactive [facility] Comment on above: Non Reactive: < 0.8 Equivocal: >/= 0.8 to < 1.0 Reactive: >/= 1.0The CDC recommends that a reactive/equivocal HCV antibody result be followed up by the HCV Nucleic Acid Amplificationtest (880794) Rubella IgG Antibody Reactive Nonreactive [facility] Comment on above: Antibody Results Int erpretation of Immune Status Non Reactive Presumed Non-Immune Equivocal Equivocal Reactive Presumed Immune Platelets bldOrdered By: Markie Cornell on 02-24-2023 Platelets (Bld) [#/Vol] 323 10*3/uL 150-450 [facility] Serum Treponema species anti body detectionOrdered By: Ivette Cornell on 02-24-2023 Treponema sp Ab Ql (S) Non-Reactive [facility] Serum or plasma choriogonado tropin detectionOrdered By: Ivette Corenll on 02-24-2023 HCG ( test) [place]l [address] mIU/mL <4 [facility] Comment on above: hCG levels with Gest ational AgeGestational Age hCG mIU/mL (IU/L)0.2 - 1 week 5 - 501-2 weeks 50 - 5002-3 weeks 100 - 26582-1 weeks 500 - 680337-5 weeks 1000 - 869235-2 weeks 95188 - 100,0006-8 weeks 52238 - 200,0002-3 months 57717 - 100,000 Serum or plasma choriogonado tropin detectionOrdered By: Batsheva Krishna on 02-04-2023 HCG ( test) Ql 2393 mIU/mL <4 [facility] Comment on above: hCG levels with Gest ational AgeGestational Age hCG mIU/mL (IU/L)0.2 - 1 week 5 - 501-2 weeks 50 - 5002-3 weeks 100 - 38504-6 weeks 500 - 736178-5 weeks 1000 - 310090-8 weeks 86917 - 100,0006-8 weeks 06039 - 200,0002-3 months 22684 - 100,000 Serum or plasma choriogonado tropin detectionOrdered By: Batsheva Krishna on 02-02-2023 HCG ( test) Ql 1074 mIU/mL <4 [facility] Comment on above: hCG levels with Gest ational AgeGestational Age hCG mIU/mL (IU/L)0.2 - 1 week 5 - 501-2 weeks 50 - 5002-3 weeks 100 - 34089-2 weeks 500 - 621043-8 weeks 1000 - 864436-6 weeks 63148 - 100,0006-8 weeks 72554 - 200,0002-3 months 63224 - 100,000 Tobacco Screening.on 023 Tobacco use status CPHS b) No [facility] Work Phone: Complete Blood Count + Diffe rentialon 08-01-2022 Basophils/100 WBC (Bld) 0.5 % 0.0 - 2.0 [facility] Work Phone: Erythrocyte distribution width (RBC) [Ratio] 12.4 % See Below [facility] Work Phone: Comment on above: Reference Range: 11. 5 - 14.5 Hematocrit (Bld) [Volume fraction] 41.9 % See Below [facility] Work Phone: Comment on above: Reference Range: 36. 0 - 46.0 Hemoglobin (Bld) [Mass/Vol] 13.9 g/dL See Below [facility] Work Phone: Comment on above: Reference Range: 12. 0 - 16.0 Lymphocytes/100 WBC (Bld) 27.0 % See Below [facility] Work Phone: Comment on above: Reference Range: 13. 0 - 44.0 MCHC (RBC) [Mass/Vol] 33.2 g/dL See Below [facility] Work Phone: Comment on above: Reference Range: 32. 0 - 36.0 MCV (RBC) [Entitic vol] 84 fL 80 - 100 [facility] Work Phone: [phone] Monocytes/100 WBC (Bld) 7.1 % 2.0 - 10.0 [facility] Work Phone: [phone] Neutrophils/100 WBC (Bld) 64.0 % See Below [facility] Work Phone: Comment on above: Reference Range: 40. 0 - 80.0 Platelets (Bld) [#/Vol] 348 10*3/uL 150 - 450 [facility] Work Phone: [phone] RBC (Bld) [#/Vol] 4.98 {x10E12/L} See Below [facility] Work Phone: Comment on above: Reference Range: 4.0 0 - 5.20 WBC (Bld) [#/Vol] 8.6 10*3/uL 4.4 - 11.3 [facility] Work Phone: [phone] Complete Blood Count + Differential 0.04 {x10E9/L} See Below [facility] Work Phone: Comment on above: Reference Range: 0.0 0 - 0.10 Complete Blood Count + Differential 0.10 {x10E9/L} See Below [facility] Work Phone: Comment on above: Reference Range: 0.0 0 - 0.70 Complete Blood Count + Differential 0.61 {x10E9/L} See Below [facility] Work Phone: Comment on above: Reference Range: 0.1 0 - 1.00 Complete Blood Count + Differential 2.32 {x10E9/L} See Below [facility] Work Phone: Comment on above: Reference Range: 1.2 0 - 4.80 Complete Blood Count + Differential 5.50 {x10E9/L} See Below [facility] Work Phone: Comment on above: Reference Range: 1.2 0 - 7.70 Percent differential counts (%) should be interpreted in the context of the absolute cell counts (cells/L). Complete Blood Count + Differential 1.2 % 0.0 - 6.0 [facility] Work Phone: Complete Blood Count + Differential 0.2 % 0.0 - 0.9 [facility] Work Phone: Comment on above: Immature Granulocyte Count (IG) includes promyelocytes, myelocytes and metamyelocytes but does not include bands. Percent differential counts (%) should be interpreted in the context of the absolute cell counts (cells/L). Cult, Bloodon 08-01-2022 Bacteria identified Cx Nom (Bld) [facility] Work Phone: Bacteria identified Cx Nom (Bld) [facility] Work Phone: Hepatic Function Panelon Albumin BCP dye [Mass/Vol] 4.6 g/dL 3.4 - 5.0 [facility] Work Phone: ALP [Catalytic activity/Vol] 52 U/L 33 - 110 [facility] Work Phone: ALT With P-5'-P [Catalytic activity/Vol] 16 U/L 7 - 45 [facility] Work Phone: Comment on above: Patients treated wit h Sulfasalazine may generate falsely decreased results for ALT. AST With P-5'-P [Catalytic activity/Vol] 15 U/L 9 - 39 [facility] Work Phone: Bilirubin [Mass/Vol] 0.4 mg/dL 0.0 - 1.2 [facility] Work Phone: Bilirubin.direct [Mass/Vol] 0.0 mg/dL 0.0 - 0.3 [facility] Work Phone: Protein [Mass/Vol] 7.1 g/dL 6.4 - 8.2 [facility] Work Phone: INFLUENZA A/B, COVID 2019 PC R,SYMPTOMATICon 08-01-2022 INFLUENZA A/B, COVID 2019 PCR,SYMPTOMATIC Not detected See Below [facility] Work Phone: Comment on above: Reference Range: Not Detected.This test has received FDA Emergency Use Authorization (EUA) and has been verified by [facility]. This test is only authorized for the duration of time that circumstances exist to justify the authorization of the emergency use of in vitro diagnostic tests for the detection of SARS-CoV-2 virus and/or diagnosis of COVID-19 infection under section 564(b)(1) of the Act, 21 U.S.C. 360bbb-3(b)(1), unless the authorization is terminated or revoked sooner. [facility] is certified under CLIA-88 as qualified to perform high complexity testing. Testing is performed in the [facility] laboratory located at [address] [place] [address].SARS-CoV-2/Flu/RSV Multiplex Test: Fact sheet for providers: https://www.fda.gov/media/011960/downloadFact sheet for patients: https://www.fda.gov/media/152149/download Reference Range: Not Detected Respiratory virus testing is performed routinely by PCR for Influenza A/B and RSV. Not Detected results do not preclude Influenza A/B or RSV infections since the adequacy of sample collection or low viral burden may impact the clinical sensitivity of this test method. SOURCE: Nasal, Nasop haryngealReference Range: Not Detected Respiratory virus testing is performed routinely by PCR for Influenza A/B and RSV. Not Detected results do not preclude Influenza A/B or RSV infections since the adequacy of sample collection or low viral burden may impact the clinical sensitivity of this test method. Laboratory - Chemistry and C hemistry - challengeon 08-01-2022 Anion gap [Moles/Vol] 12 mmol/L 10 - 20 [facility] Work Phone: Calcium [Mass/Vol] 9.3 mg/dL 8.6 - 10.3 [facility] Work Phone: Chloride [Moles/Vol] 104 mmol/L 98 - 107 [facility] Work Phone: CO2 [Moles/Vol] 26 mmol/L 21 - 32 [facility] Work Phone: Creatinine [Mass/Vol] 0.67 mg/dL See Below [facility] Work Phone: Comment on above: Reference Range: 0.5 0 - 1.05 Glucose [Mass/Vol] 93 mg/dL 74 - 99 [facility] Work Phone: Potassium [Moles/Vol] 3.7 mmol/L 3.5 - 5.3 [facility] Work Phone: [phone] Sodium [Moles/Vol] 138 mmol/L 136 - 145 [facility] Work Phone: [phone] Urea nitrogen [Mass/Vol] 9 mg/dL 6 - 23 [facility] Work Phone: Laboratory - Coagulationon 0 08-01-2022 INR Coag (PPP) [Relative time] 1.0 {INR} 0.9 - 1.1 [facility] Work Phone: PT Coag (PPP) [Time] 11.8 s 9.8 - 13.4 [facility] Work Phone: Lipase, Serumon 08-01-2022 Lipase [Catalytic activity/Vol] 22 U/L 9 - 82 [facility] Work Phone: Comment on above: Venipuncture immedia tely after or during the administration of Metamizole may lead to falsely low results. Testing should be performed immediately prior to Metamizole dosing. P-yixdwj-i-benzoquinone imine (metabolite of Acetaminophen) will generate erroneously low results in samples for patients that have taken toxic doses of acetaminophen. No Panel Informationon 08-01 >90 >90 [facility] Work Phone: Comment on above: CALCULATIONS OF VANDANA MATED GFR ARE PERFORMED USING THE 2020 CKD-EPI STUDY REFIT EQUATION WITHOUT THE RACE VARIABLE FOR THE IDMS-TRACEABLE CREATININE METHODS.https://jasn.asnjournals.org/content//A SN.4294664557 Radiologyon 01-20-2023 XR Chest Single view Normal [facility] Work Phone: TROPONIN I, HIGH SENSITIVITY on 08-01-2022 Tropinin I.cardiac panel High sensitivity method <3 0 - 13 [facility] Work Phone: Comment on above: .Less than 99th perc entile of normal range cutoff-Female and children under 18 years old <14 ng/L; Male <21 ng/L: NegativeRepeat testing should be performed if clinically indicated. .Female and children under 18 years old 14-50 ng/L; Male 21-50 ng/L:Consistent with possible cardiac damage and possible increased clinical risk. Serial measurements may help to assess extent of myocardial damage. .>50 ng/L: Consistent with cardiac damage, increased clinical risk andmyocardial infarction. Serial measurements may help assess extent of myocardial damage. . NOTE: Children less than 1 year old may have higher baseline troponin levels and results should be interpreted in conjunction with the overall clinical context. .NOTE: Troponin I testing is performed using a different testing methodology at [facility] than at other [facility]. Direct result comparisons should only be made within the same method. URINALYSIS WITH CULTURE IF I NDICATEDon 08-01-2022 Color (U) Straw See Below [facility] Work Phone: Comment on above: Reference Range: STR AW,YELLOW Glucose Ql (U) Negative NEGATIVE [facility] Work Phone: Ketones Ql (U) Negative NEGATIVE [facility] Work Phone: Leukocyte esterase Test strip Ql (U) Negative NEGATIVE [facility] Work Phone: pH (U) 6.0 [pH] 5.0 - 8.0 [facility] Work Phone: Protein (U) [Mass/Vol] Negative NEGATIVE [facility] Work Phone: RBC (U) [#/Vol] Negative NEGATIVE [facility] Work Phone: Specific gravity (U) [Rel density] 1.006 1 See Below [facility] Work Phone: Comment on above: Reference Range: 1.0 05 - 1.035 URINALYSIS WITH CULTURE IF INDICATED Negative NEGATIVE [facility] Work Phone: URINALYSIS WITH CULTURE IF INDICATED <2.0 0.0 - 1.9 [facility] Work Phone: URINALYSIS WITH CULTURE IF INDICATED CLEAR CLEAR [facility] Work Phone: Urine Teston 08-01 HCG ( test) Ql (U) Negative Negative [facility] Work Phone: CBCon 01-20-2022 Erythrocyte distribution width (RBC) [Ratio] 13.2 % Normal 11.5 - 14.5 [facility] Comment on above: Performed By: #### C BC #### [address] [address] Hematocrit (Bld) [Volume fraction] 42.1 % Normal 36.0 - 46.0 [facility] Comment on above: Performed By: #### C BC #### [address] [address] Hemoglobin (Bld) [Mass/Vol] 14.2 g/dL Normal 12.0 - 16.0 [facility] Comment on above: Performed By: #### C BC #### [address] [address] MCHC (RBC) [Mass/Vol] 33.8 g/dL Normal 32.0 - 36.0 [facility] Comment on above: Performed By: #### C BC #### [address] [address] MCV (RBC) [Entitic vol] 84 fL Normal 80 - 100 [facility] Comment on above: Performed By: #### C BC #### [address] [address] Platelets (Bld) [#/Vol] 315 10*3/uL Normal 150 - 450 [facility] Comment on above: Performed By: #### C BC #### [address] [address] RBC 5.01 x10E12/L Normal 4.00 - 5.20 [facility] Comment on above: Performed By: #### C BC #### [address] [address] WBC (Bld) [#/Vol] 7.0 10*3/uL Normal 4.4 - 11.3 [facility] Comment on above: Performed By: #### C BC #### [address] [address] Laboratory - Chemistry and C hemistry - challengeon 01-20-2022 TSH Qn 1.84 m[IU]/L See Below [facility] Work Phone: Comment on above: Reference Range: 0.4 4 - 3.98 TSH testing is performed using different testing methodology at [facility] than at other [facility]. Direct result comparisons should only be made within the same method. Laboratory - Hematology and Cell countson 01-20-2022 Erythrocyte distribution width (RBC) [Ratio] 13.2 % See Below [facility] Work Phone: Comment on above: Reference Range: 11. 5 - 14.5 Hematocrit (Bld) [Volume fraction] 42.1 % See Below [facility] Work Phone: Comment on above: Reference Range: 36. 0 - 46.0 Hemoglobin (Bld) [Mass/Vol] 14.2 g/dL See Below [facility] Work Phone: Comment on above: Reference Range: 12. 0 - 16.0 MCHC (RBC) [Mass/Vol] 33.8 g/dL See Below [facility] Work Phone: [phone] Comment on above: Reference Range: 32. 0 - 36.0 MCV (RBC) [Entitic vol] 84 fL 80 - 100 [facility] Work Phone: Platelets (Bld) [#/Vol] 315 10*3/uL 150 - 450 [facility] Work Phone: [phone] RBC (Bld) [#/Vol] 5.01 {x10E12/L} See Below [facility] Work Phone: Comment on above: Reference Range: 4.0 0 - 5.20 WBC (Bld) [#/Vol] 7.0 10*3/uL 4.4 - 11.3 [facility] Work Phone: [facility] Follow-up visit Diagnoses/Problems Fatigue, unspecified type (780.79) (R53.83) Poor appetite (783.0) (R63.0) Depression (311) (F32.A) Generalized anxiety disorder (300.02) (F41.1) Orders Fatigue, unspecified type Complete Blood Count; Status:Active; Requested for:[id number]; Follow-up visit in 1 year Outpatient Follow-up Status: Hold For - Scheduling Requested for: [id number] TSH WITH REFLEX TO FREE T4 IF ABNORMAL; Status:Active; Requested for:[id number]; Vitamin D 25-Hydroxy; Status:Active; Requested for:[id number]; Provider Impressions Fatigue: will check lab for TSH, CBC, and Vitamin D. Poor appetite: may be related to medication, will check lab as above. Depression with Anxiety: Well controlled, follow with psychiatry. Return in 1 year for annual wellness or as needed for illness. Chief Complaint Med refill - doesn't need anything today. History of Present Illness The last health maintenance visit was unknown year(s) ago. Concerns raised today include: fatigue and decrease in appetite. The patient's health since the last visit is described as good. There are no interval changes in the patient's PMH, PSH, and current medications. There are no interval changes in the patient's social and family history. She does not have regular dental visits. She complains of vision problems. Vision care includes wearing glasses, an eye examination more than a year ago and 06/2020 last exam. She denies hearing loss. Immunizations status: up to date. Lifestyle: She consumes a diverse and healthy diet. She has weight concerns. Weight control issues: overweight. She exercises regularly. She exercises yoga 3-4 times a week. She does not use tobacco. She consumes alcohol. She reports drinking 1 drinks per week. She typically drinks wine. denies illicit drug use. Reproductive health: she reports normal menses. she uses no contraception. she is sexually active. [facility]: 12/28/21. History: 0. Cervical cancer screening: cancer screening reviewed and current . patient has no history of an abnormal pap smear. Metabolic screening: lipid profile performed within the past five years. Anahy is a 31 yo female here today for annual wellness. She reports her health as good, she complains of increase in fatigue and poor appetite, no weight loss. She sees psychiatry every 3 months, MANNEQUIN [employer]OLD [employer]KER annually. denies any SI or HI. No other health concerns 'Scores and Scales' FARRAH-7 [id number] 21 FARRAH-7 Total Score3 17 17 Feeling nervous, anxious or on edgeSeveral days - 1 Nearly every day - 3 Nearly every day - 3 Not being able to stop or control worryingNot at all - 0 Nearly every day - 3 Nearly every day - 3 Worrying too much about different thingsNot at all - 0 Nearly every day - 3 Nearly every day - 3 Trouble relaxingSeveral days - 1 Over half the days - 2 Nearly every day - 3 Being so restless that it's hard to sit stillSeveral days - 1 Over half the days - 2 Several days - 1 Becoming easily annoyed or irritableNot at all - 0 Over half the days - 2 Over half the days - 2 Feeling afraid as if something awful might happenNot at all - 0 Over half the days - 2 Over half the days - 2 Review of Systems Constitutional: no chills, no fever and no night sweats. Eyes: no blurred vision and no eyesight problems. ENT: no hearing loss, no nasal congestion, no nasal discharge, no hoarseness and no sore throat. Neck: no mass(es) and no swelling. Cardiovascular: no chest pain, no intermittent leg claudication, no lower extremity edema, no palpitations and no syncope. Respiratory: no cough, no shortness of breath during exertion, no shortness of breath at rest and no wheezing. The patient presents with complaints of nausea (nausea due to decrease in appetite). Genitourinary: no dysuria, no change in urinary frequency, no urinary hesitancy, no feelings of urinary urgency and no vaginal discharge. Musculoskeletal: no arthralgias, no back pain and no myalgias. Integumentary: no new skin lesions and no rashes. Neurological: no difficulty walking, no headache, no limb weakness, no numbness and no tingling. Psychiatric: no anxiety, no depression, no anhedonia and no substance use disorders. Endocrine: no recent weight gain and no recent weight loss. Active Problems Acute cough (786.2) (R05.1) Bruise (924.9) (T14.8XXA) Depression (311) (F32.A) Encounter for removal of intrauterine contraceptive device (IUD) (V25.12) (Z30.432) Generalized anxiety disorder (300.02) (F41.1) Headache (784.0) (R51.9) Headache, migraine (346.90) (G43.909) Screening for breast cancer (V76.10) (Z12.39) Screening for cervical cancer (V76.2) (Z12.4) Sore throat (462) (J02.9) Suspected COVID-19 virus infection (V01.79) (Z20.822) Upper respiratory infection (465.9) (J06.9) Women's annual routine gynecological examination (V72.31) (Z01.419) Past Medical History History of Menstruation Onset age 10 years History of Pap test, as part of 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 Normal [facility] TSH WITH REFLEX TO FREE T4 I F ABNORMALon 01-20-2022 TSH Qn 1.84 m[IU]/L Normal 0.44 - 3.98 [facility] Comment on above: Result Comment: TSH testing is performed using different testing methodology at [facility] than at other [facility]. Direct result comparisons should only be made within the same method. Performed By: #### T [facility] #### [place] [address] Tobacco Screening.on 022 Tobacco use status HS b) No [facility] Work Phone: VITAMIN D, 25-HYDROXYon 01-10 VITAMIN D, 25-HYDROXY 25 ng/mL Abnormal [facility] Comment on above: Result Comment: . DEFICIENCY: < 20 NG/ML INSUFFICIENCY: 20-29 NG/ML SUFFICIENCY: 30-100 NG/ML THIS ASSAY ACCURATELY QUANTIFIES THE SUM OF VITAMIN D3, 25-HYDROXY AND VIT D2,25-HYDROXY. Performed By: #### V TDOH #### [facility] [address] [place] [address] Vitamin D 25-Hydroxyon 01-20 25-hydroxyvitamin D3 [Mass/Vol] 25 ng/mL Abnormal [facility] Work Phone: Comment on above: .DEFICIENCY: < 20 NG /MLINSUFFICIENCY: 20-29 NG/MLSUFFICIENCY: 30-100 NG/MLTHIS ASSAY ACCURATELY QUANTIFIES THE SUM OFVITAMIN D3, 25-HYDROXY AND VIT D2,25-HYDROXY. CHEST 2 VIEW PA AND LATon CHEST 2 VIEW PA AND LAT Patient Name: ANAHY ESCALANTE STUDY: TH CHEST 2 VIEW PA AND LAT; 11/26/2021 10:36 am INDICATION: cough, occasional SOB, low grade fever Z20.822: Suspected COVID-19 virus infection R05.1: Acute cough. COMPARISON: 09/11/2018 ACCESSION NUMBER(S): [id number] ORDERING CLINICIAN: JOSE LEWIS FINDINGS: CARDIOMEDIASTINAL SILHOUETTE: Cardiomediastinal silhouette is normal in size and configuration. LUNGS: There are no focal areas of consolidation or pleural effusions noted. ABDOMEN: No remarkable upper abdominal findings. BONES: No acute osseous changes. IMPRESSION: 1. No evidence of acute cardiopulmonary process. Electronically signed by: XIANG HAINES MD [facility] Covid 19 Resultson 2 SARS-CoV-2 (COVID-19) RNA TRISTIAN+probe Ql (Unsp spec) NEGATIVE COVID-19 Test Coronaviruses are common world-wide and are the cause of many common colds. SARS-COV2 is a new coronavirus that began circulating worldwide in 2019 so we are calling it COVID-19. It has been estimated that four out of five patients with COVID-19 will recover at home without the need for medical attention. Symptoms of COVID-19 may include cough, fever, shortness of breath, loss of taste or smell and other flu-like symptoms including chills, sore muscles, sore throat, and headache. Severe illness is more common in older people and people with other health problems such as high blood pressure, obesity, and immune system problems. If the test is positive, you have COVID-19. You will be contacted by the ordering physicians office and instructed to remain on home isolation, in accordance with CDC guidelines. You may also be contacted by the [facility] to see if any of your close contacts may have been exposed to the virus and need to quarantine. If the test is negative, you likely do not have COVID-19 at this time, but you still may have a different illness that can spread to other people (like Influenza, or the Flu) and could still be at risk for getting COVID-19. We recommend that you stay away from other people to limit the spread of illness until your symptoms are improving and you are fever-free for 24 hours without the use of fever lowering medications such as acetaminophen or ibuprofen. No test is 100% accurate so if you are still concerned you may have COVID-19, talk to your doctor about the need to continue to stay away from others. Medicines Unless your provider told you not to use the following: Acetaminophen (Tylenol and others) is generally safe. Anti-inflammatory medications, such as Ibuprofen (Advil or Motrin) or Naproxen (Aleve) can also be used. Lhhe-iam-ukwmdas cough and cold medicines can be used according to the instructions on the package. Some iffz-kzz-eflabit medicines also contain acetaminophen. Make sure you are not taking more than your recommended dose. For those not hospitalized, there is no specific treatment available for this illness. Antibiotics do not treat Coronaviruses. Follow-Up Follow up with your doctor by scheduling a virtual visit or consider follow-up at one of our urgent care fever clinics. If you are having difficulty breathing, or are very weak and having difficulty standing, this is a medical emergency. Call 911 or have someone take you to the nearest emergency room immediately. If possible, wear a facemask. Additional guidance from the CDC for patients who tested POSITIVE for COVID-19 How to isolate: Isolate yourself in a specific room at home and limit your contact with others. Use a separate bathroom from other members of the household, when possible. Leave home only to get essential medical care. Do not go to work, school or public areas. Avoid using public transportation, ride-sharing, or taxis. Restrict contact with pets and other animals. If you must care for your pet or be around animals while you are sick, wash your hands before and after your interaction and wear a facemask. Make sure that shared spaces in the home have good airflow, such as by an air conditioner or an opened window, weather permitting. Personal Hygiene Procedures: Wear a face mask when in the same room as other people or pets. If a face mask interferes with your breathing, others should wear a mask when sharing space with you. Frequent hand-washing: wash your hands with soap and water for at least 20 seconds. If soap and water are not available, use alcohol-based hand research & insights executive. Avoid touching your eyes, nose, and mouth with unwashed hands. Household Hygiene Procedures: Avoid sharing personal household items such as dishes, glassware, cups, eating utensils, towels or bedding with other people or pets in your home. After use, these items should be washed with soap and hot water. Disinfect all high-touch surfaces every day with antibacterial cleaning solutions such as Lysol wipes, bleach, cleansers, etc. High-touch surfaces include tabletops, doorknobs, bathroom fixtures, toilets, phones, keyboards, tablets and bedside tables. Immediately clean any surfaces that may have blood, poop or body fluids on them, using antibacterial cleaning solutions such as Lysol wipes, bleach, cleansers, etc. If clothing or bedding come into contact with blood, poop or body fluids, they should be washed immediately. Follow the directions on the laundry detergent and clothing labels but hot water is recommended when possible. Stopping home isolation precautions: If possible, consult your doctor before stopping home isolation precautions. According to the CDC, you can discontinue home isolation precautions when you have met both of these criteria: Your fever and respiratory symptoms have been gone for 24 terrence (more content not included)... Normal [facility] INFLUENZA A/B, COVID 2019 PC R,SYMPTOMATICon 11-26-2021 INFLUENZA A, PCR Not detected Normal Not Detected [facility] Comment on above: Result Comment: Resp iratory virus testing is performed routinely by PCR for Influenza A/B and RSV. If Influenza and RSV PCR are negative, testing for parainfluenza 1,2,3 viruses and adenovirus is routinely performed for oncology inpatients and intensive care unit patients at [facility] and is available on request on other patients by calling Laboratory Client Services at [phone]. Not Detected results do not preclude Influenza A/B or RSV infections since the adequacy of sample collection or low viral burden may impact the clinical sensitivity of this test method. Performed By: #### C OINP #### [facility] [address] [place] [address] INFLUENZA B, PCR Not detected Normal Not Detected [facility] Comment on above: Result Comment: Resp iratory virus testing is performed routinely by PCR for Influenza A/B and RSV. If Influenza and RSV PCR are negative, testing for parainfluenza 1,2,3 viruses and adenovirus is routinely performed for oncology inpatients and intensive care unit patients at [facility] and is available on request on other patients by calling Laboratory Client Services at [phone] Not Detected results do not preclude Influenza A/B or RSV infections since the adequacy of sample collection or low viral burden may impact the clinical sensitivity of this test method. . The TaqManTM SARS-CoV-2, Flu A, Flu B Multiplex Assay is a multiplex, real-time RT-PCR assay for the detection of RNA from the SARS-CoV-2, Influenza A, and Influenza B viruses. A negative result does not preclude the possibility of SARS-CoV-2, Influenza A, or Influenza B infections, and should not be used as the sole basis for patient management decision as a negative result may be caused by very low levels of infection, collection errors, or testing errors. . This test was developed and its performance characteristics were determined by the Microbiology Laboratory, Department of Pathology, [facility], [place], [place]. It has not been cleared or approved by the US Food and Drug Administration; however, FDA clearance or approval is not currently required for clinical use. This test should not be regarded as investigational or for research purposes. Performed By: #### C OINP #### [facility] [address] [place] [address] SARS-CoV-2 (COVID-19) RNA TRISTIAN+probe Ql (Unsp spec) Not detected Normal Not Detected [facility] Comment on above: Result Comment: . This assay is designed to detect the N, ORF1ab and/or S genes of SARS-CoV-2 via nucleic acid amplification. A Negative (NOT DETECTED) result does not preclude 2019-nCoV infection since the adequacy of sample collection and/or low viral burden may result in presence of viral nucleic acids below the clinical sensitivity of this test method. Negative (NOT DETECTED) result should not be used as the sole basis for treatment or other patient management decisions. Rather negative results should be combined with clinical observations, patient history, and epidemiological information to make patient management decisions. Fact sheet for providers: https://www.fda.gov/media/752311/download Fact sheet for patients: https://www.fda.gov/media/300764/download This test has received FDA Emergency Use Authorization (EUA) and has been verified by [facility] ([facility]). This test is only authorized for the duration of time that circumstances exist to justify the authorization of the emergency use of in vitro diagnostic tests for the detection of SARS-CoV-2 virus and/or diagnosis of COVID-19 infection under section 564(b)(1) of the Act, 21 U.S.C. 360bbb-3(b)(1), unless the authorization is terminated or revoked sooner. [facility] is certified under CLIA-88 as qualified to perform high complexity testing. Testing is performed in the [facility] laboratories located at [address] [place] [address]. Performed By: #### C OINP #### [place] [address] Lab Specimen Source Nasal, Nasopharyngeal Normal [facility] Comment on above: Performed By: #### C OINP #### [place] [address] INFLUENZA A/B, COVID 2019 PCR,SYMPTOMATIC Not detected See Below -[facility] Work Phone: Comment on above: Reference Range: Not Detected.This assay is designed to detect the N, ORF1ab and/or S genes of SARS-CoV-2 via nucleic acid amplification. A Negative (NOT DETECTED) result does not preclude 2019-nCoV infection since the adequacy of sample collection and/or low viral burden may result in presence of viral nucleic acids below the clinical sensitivity of this test method. Negative (NOT DETECTED) result should not be used as the sole basis for treatment or other patient management decisions. Rather negative results should be combined with clinical observations, patient history, and epidemiological information to make patient management decisions.Fact sheet for providers: https://www.fda.gov/media/022526/downloadFact sheet for patients: https://www.fda.gov/media/267464/downloadThis test has received FDA Emergency Use Authorization (EUA) and has been verified by [facility] ([facility]). This test is only authorized for the duration of time that circumstances exist to justify the authorization of the emergency use of in vitro diagnostic tests for the detection of SARS-CoV-2 virus and/or diagnosis of COVID-19 infection under section 564(b)(1) of the Act, 21 U.S.C. 360bbb-3(b)(1), unless the authorization is terminated or revoked sooner. [facility] is certified under CLIA-88 as qualified to perform high complexity testing. Testing is performed in the [facility] laboratories located at [address] [place] [address]. Reference Range: Not Detected Respiratory virus testing is performed routinely by PCR for Influenza A/B and RSV. If Influenza and RSV PCR are negative, testing for parainfluenza 1,2,3 viruses and adenovirus is routinely performed for oncology inpatients and intensive care unit patients at [facility] and is available on request on other patients by calling Laboratory Client Services at [phone] Not Detected results do not preclude Influenza A/B or RSV infections since the adequacy of sample collection or low viral burden may impact the clinical sensitivity of this test method..The TaqManTM SARS-CoV-2, Flu A, Flu B Multiplex Assay is a multiplex, real-time RT-PCR assay for the detection of RNA from the SARS-CoV-2, Influenza A, and Influenza B viruses. A negative result does not preclude the possibility of SARS-CoV-2, Influenza A, or Influenza B infections, and should not be used as the sole basis for patient management decision as a negative result may be caused by very low levels of infection, collection errors, or testing errors. .This test was developed and its performance characteristics were determined by the Microbiology Laboratory, Department of Pathology, [facility], [place], [place]. It has not been cleared or approved by the US Food and Drug Administration; however, FDA clearance or approval is not currently required for clinical use. This test should not be regarded as investigational or for research purposes. SOURCE: Nasal, Nasop haryngealReference Range: Not Detected Respiratory virus testing is performed routinely by PCR for Influenza A/B and RSV. If Influenza and RSV PCR are negative, testing for parainfluenza 1,2,3 viruses and adenovirus is routinely performed for oncology inpatients and intensive care unit patients at [facility] and is available on request on other patients by calling Laboratory Client Services at [phone]. Not Detected results do not preclude Influenza A/B or RSV infections since the adequacy of sample collection or low viral burden may impact the clinical sensitivity of this test method. Office Visit ([facility]on 11-26-2021 Follow-up visit Diagnoses/Problems Acute cough (786.2) (R05.1) Upper respiratory infection (465.9) (J06.9) Sore throat (462) (J02.9) Headache (784.0) (R51.9) Suspected COVID-19 virus infection (V01.79) (Z20.822) Orders Acute cough Start: Dextromethorphan-guaiFENe sin 20-400 MG Oral Tablet; TAKE 1 TABLET EVERY 4 HOURS NEEDED Acute cough, Headache, Sore throat INFLUENZA A/B, COVID 2019 PCR,SYMPTOMATIC; Status:Active; Requested for:26Nov2021; Acute cough, Suspected COVID-19 virus infection Xray Chest 2 View PA + Lateral; Status:Hold For - Scheduling; Requested for:26Nov2021; Radiologist to Determine Optimal Study : Y What are the patient's signs and symptoms? : cough, occasional SOB, low grade fever Acute cough, Upper respiratory infection Start: Azithromycin 250 MG Oral Tablet (Zithromax Z-Rahul); TAKE 2 TABLETS ON DAY 1 THEN TAKE 1 TABLET A DAY FOR 4 DAYS Provider Impressions Suspect COVID 19: will complete PCV COVID test with influenza A/B URI: Start taking Z-Rahul if COVID test negative, will obtain CXR to rule out pneumonia, start taking Dextromethorphan/guaifene sin every 4 hours as needed fro cough. May take Tylenol or Ibuprofen OTC as needed for pain or fever. Will call with xray and lab results. Remain home avoid others until COVID test results available. Chief Complaint PATIENT HERE TODAY WITH COMPLAINTS OF A SORE THROAT, COUGH, SINUS DRAINAGE, AND RIGHT EAR DISCOMFORT. History of Present Illness Anahy is a 31 yo female here today with complaints of severe cough, sore throat, and sinus drainage. She reports Sx onset; sore throat on Thursday, cough started on Thursday, hoarseness started on Thursday. Low grade temp 100.2 on Thursday. 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 Unsure if been around anyone else ill. Is COVID vaccinated and boosted times 1. She has not had COVID, is unaware if she has been around anyone with COVID 'Scores and Scales' FARRAH-7 [id number] 21 FARRAH-7 Total Score3 17 17 Feeling nervous, anxious or on edgeSeveral days - 1 Nearly every day - 3 Nearly every day - 3 Not being able to stop or control worryingNot at all - 0 Nearly every day - 3 Nearly every day - 3 Worrying too much about different thingsNot at all - 0 Nearly every day - 3 Nearly every day - 3 Trouble relaxingSeveral days - 1 Over half the days - 2 Nearly every day - 3 Being so restless that it's hard to sit stillSeveral days - 1 Over half the days - 2 Several days - 1 Becoming easily annoyed or irritableNot at all - 0 Over half the days - 2 Over half the days - 2 Feeling afraid as if something awful might happenNot at all - 0 Over half the days - 2 Over half the days - 2 Review of Systems Constitutional: chills, feeling poorly, feeling tired and fever, but no night sweats. Eyes: no eyesight problems. ENT: earache, nasal congestion, rhinorrhea , sinus pressure, hoarseness and sore throat, but as noted in HPI. Respiratory: shortness of breath during exertion, but as noted in HPI and no wheezing The patient presents with complaints of sudden onset of constant episodes of severe cough, described as tight, dry and non-productive. Gastrointestinal: no abdominal pain, no blood in stools, no constipation, no diarrhea, no melena, no nausea, no rectal pain and no vomiting. Genitourinary: no dysuria, no change in urinary frequency, no urinary hesitancy, no feelings of urinary urgency and no vaginal discharge. Psychiatric: no anxiety, no depression, no anhedonia and no substance use disorders. Active Problems Bruise (924.9) (T14.8XXA) Depression (311) (F32.A) Encounter for removal of intrauterine contraceptive device (IUD) (V25.12) (Z30.432) Generalized anxiety disorder (300.02) (F41.1) Headache, migraine (346.90) (G43.909) Screening for breast cancer (V76.10) (Z12.39) Screening for cervical cancer (V76.2) (Z12.4) Suspected COVID-19 virus infection (V01.79) (Z20.822) Women's annual routine gynecological examination (V72.31) (Z01.419) Past Medical History History of Menstruation Onset age 10 years History of Pap test, as part of routine gynecological examination (V76.2) (Z01.419) 04/23/2021; COTEST NEG November 2017 Surgical History History of Intrauterine device placement 11/2017 History of Tonsillectomy with adenoidectomy 2004 History of Tympanoplasty Family History No pertinent family history Family history of Graves' disease (V18.19) (Z83.49) Social History Does not have living will 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 Normal [employer] Radiologyon 11-26-2021 XR Chest 2 Views Please click on the link to view the study images Normal -[facility] Work Phone: XR Chest 2 Views Normal [facility] Work Phone: Tobacco Screening.on 022 Tobacco use status [facility] b) No [facility] Work Phone: LMPon 06-17-2021 Last menstrual period start date IUD [facility] [place] Work Phone: RN CLINICAL TRIALS - Procedure Visiton 1 08-18-2020 RN CLINICAL TRIALS - Procedure Visit Diagnoses/Problems Encounter for removal of intrauterine contraceptive device (IUD) (V25.12) (Z30.432) Orders Encounter for removal of intrauterine contraceptive device (IUD) Follow-up PRN Outpatient Follow-up Status: Active Requested for: [id number] Unlinked Stop: Mirena (52 MG) 20 MCG/24HR Intrauterine Intrauterine Device Provider Impressions 1) encounter for IUD removal-IUD removed without complication noted above. Patient tolerated procedure well. Precautions for return. Chief Complaint PT IS HERE TODAY FOR THE REMOVAL OF THE IUD. PT STATES IS NOT INTERESTED IN ANY CONTROL. HAS NO CONCERNS. LMP: IUD History of Present Squbqcz05-nnwu-lbn presents for IUD removal. Considering fertility in the near future. Been taking vitamins. Patient has no acute concern Review of Systems Constitutional: No fevers, chills Eye:no vision changes Respiratory: no SOB Cardiovascular: no chest pain Gastrointestinal: No nausea, vomiting, diarrhea, constipation, abdominal pain Genitourinary:no dysuria Gynecology: See HPI Active Problems Problems Bruise (924.9) (T14.8XXA) Depression (311) (F32.A) Encounter for removal of intrauterine contraceptive device (IUD) (V25.12) (Z30.432) Generalized anxiety disorder (300.02) (F41.1) Headache, migraine (346.90) (G43.909) Screening for breast cancer (V76.10) (Z12.39) Screening for cervical cancer (V76.2) (Z12.4) Suspected COVID-19 virus infection (V01.79) (Z20.822) Women's annual routine gynecological examination (V72.31) (Z01.419) Past Medical History Problems History of Menstruation Onset age 10 years History of Pap test, as part of routine gynecological examination (V76.2) (Z01.419) 04/23/2021; COTEST NEG November 2017 Surgical History Problems History of Intrauterine device placement 11/2017 History of Tonsillectomy with adenoidectomy 2004 History of Tympanoplasty Family History Mother No pertinent family history Father Family history of Graves' disease (V18.19) (Z83.49) Social History Problems Does not have living will 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 Vitamin D TABS Womens Multivitamin Plus TABS Vitals Vital Signs Recorded: [id number] 11:02AM Wvsjosxnmlq77.1 F Ymspudgm635 Onkelysat86 Height5 ft 7 in Yautil338 lb 7.20 oz BMI Brdedhyzgf88.49 kg/m2 BSA Calculated2.05 LMPIUD Physical Exam General: None acute distress Eye: Intraocular movements are intact HEENT: Normocephalic Cardiovascular: Regular rate Respiratory: Respirations are nonlabored Gastrointestinal: Nondistended Musculoskeletal: Normal range of motion Neurologic: Alert and oriented x3 Psychiatric: Cooperative appropriate mood and affect. Procedure IUD Removal Procedure: removal of Mirena IUD. Indications for the procedure include desired fertility. Risks, benefits and alternatives were discussed with the patient. Written consent was obtained prior to the procedure and is detailed in the patient's record. Procedure Note: IUD removed without difficulty. Post-Procedure: Patient Status: the patient tolerated the procedure well. Complications: there were no complications. Follow-up in the office as needed. Signatures Electronically signed by : Richardson Guo DO; Jun 17 2021 11:11AM EST (Author) Normal [employer] CORONAVIRUS 2019 BY Jay SARS-CoV-2 (COVID-19) RNA TRISTIAN+probe Ql (Unsp spec) Not detected Normal Not Detected [facility] Comment on above: Result Comment: . This assay is designed to detect the N, ORF1ab and/or S genes of SARS-CoV-2 via nucleic acid amplification. A Negative (NOT DETECTED) result does not preclude 2019-nCoV infection since the adequacy of sample collection and/or low viral burden may result in presence of viral nucleic acids below the clinical sensitivity of this test method. Negative (NOT DETECTED) result should not be used as the sole basis for treatment or other patient management decisions. Rather negative results should be combined with clinical observations, patient history, and epidemiological information to make patient management decisions. Fact sheet for providers: https://www.fda.gov/media/817976/download Fact sheet for patients: https://www.fda.gov/media/374805/download This test has received FDA Emergency Use Authorization (EUA) and has been verified by [facility] ([facility]). This test is only authorized for the duration of time that circumstances exist to justify the authorization of the emergency use of in vitro diagnostic tests for the detection of SARS-CoV-2 virus and/or diagnosis of COVID-19 infection under section 564(b)(1) of the Act, 21 U.S.C. 360bbb-3(b)(1), unless the authorization is terminated or revoked sooner. [facility] is certified under CLIA-88 as qualified to perform high complexity testing. Testing is performed in the [facility] laboratories located at [address] [place] [address]. Performed By: #### C OV19 #### [address] [place] [address] Covid 19 Resultson SARS-CoV-2 (COVID-19) RNA TRISTIAN+probe Ql (Unsp spec) NEGATIVE COVID-19 Test Coronaviruses are common world-wide and are the cause of many common colds. SARS-COV2 is a new coronavirus that began circulating worldwide in 2019 so we are calling it COVID-19. It has been estimated that four out of five patients with COVID-19 will recover at home without the need for medical attention. Symptoms of COVID-19 may include cough, fever, shortness of breath, loss of taste or smell and other flu-like symptoms including chills, sore muscles, sore throat, and headache. Severe illness is more common in older people and people with other health problems such as high blood pressure, obesity, and immune system problems. If the test is positive, you have COVID-19. You will be contacted by the ordering physicians office and instructed to remain on home isolation, in accordance with CDC guidelines. You may also be contacted by the [facility] to see if any of your close contacts may have been exposed to the virus and need to quarantine. If the test is negative, you likely do not have COVID-19 at this time, but you still may have a different illness that can spread to other people (like Influenza, or the Flu) and could still be at risk for getting COVID-19. We recommend that you stay away from other people to limit the spread of illness until your symptoms are improving and you are fever-free for 24 hours without the use of fever lowering medications such as acetaminophen or ibuprofen. No test is 100% accurate so if you are still concerned you may have COVID-19, talk to your doctor about the need to continue to stay away from others. Medicines Unless your provider told you not to use the following: Acetaminophen (Tylenol and others) is generally safe. Anti-inflammatory medications, such as Ibuprofen (Advil or Motrin) or Naproxen (Aleve) can also be used. Obpm-leb-qquhxae cough and cold medicines can be used according to the instructions on the package. Some ohps-hbl-bpfvpjl medicines also contain acetaminophen. Make sure you are not taking more than your recommended dose. For those not hospitalized, there is no specific treatment available for this illness. Antibiotics do not treat Coronaviruses. Follow-Up Follow up with your doctor by scheduling a virtual visit or consider follow-up at one of our urgent care fever clinics. If you are having difficulty breathing, or are very weak and having difficulty standing, this is a medical emergency. Call 911 or have someone take you to the nearest emergency room immediately. If possible, wear a facemask. Additional guidance from the CDC for patients who tested POSITIVE for COVID-19 How to isolate: Isolate yourself in a specific room at home and limit your contact with others. Use a separate bathroom from other members of the household, when possible. Leave home only to get essential medical care. Do not go to work, school or public areas. Avoid using public transportation, ride-sharing, or taxis. Restrict contact with pets and other animals. If you must care for your pet or be around animals while you are sick, wash your hands before and after your interaction and wear a facemask. Make sure that shared spaces in the home have good airflow, such as by an air conditioner or an opened window, weather permitting. Personal Hygiene Procedures: Wear a face mask when in the same room as other people or pets. If a face mask interferes with your breathing, others should wear a mask when sharing space with you. Frequent hand-washing: wash your hands with soap and water for at least 20 seconds. If soap and water are not available, use alcohol-based hand research & insights executive. Avoid touching your eyes, nose, and mouth with unwashed hands. Household Hygiene Procedures: Avoid sharing personal household items such as dishes, glassware, cups, eating utensils, towels or bedding with other people or pets in your home. After use, these items should be washed with soap and hot water. Disinfect all high-touch surfaces every day with antibacterial cleaning solutions such as Lysol wipes, bleach, cleansers, etc. High-touch surfaces include tabletops, doorknobs, bathroom fixtures, toilets, phones, keyboards, tablets and bedside tables. Immediately clean any surfaces that may have blood, poop or body fluids on them, using antibacterial cleaning solutions such as Lysol wipes, bleach, cleansers, etc. If clothing or bedding come into contact with blood, poop or body fluids, they should be washed immediately. Follow the directions on the laundry detergent and clothing labels but hot water is recommended when possible. Stopping home isolation precautions: If possible, consult your doctor before stopping home isolation precautions. According to the CDC, you can discontinue home isolation precautions when you have met both of these criteria: Your fever and respiratory symptoms have been gone for 24 terrence (more content not included)... Normal [facility] CORONAVIRUS 2019 BY PCRon DATE OF SYMPTOM ONSET [YYYYMMDD]? [id number] Normal [facility] Comment on above: Performed By: #### C OV19 #### [facility] [address] [facility] [address] Lab Specimen Source Nasal, Nasopharyngeal Normal [facility] Comment on above: Performed By: #### C OV19 #### [facility] [address] [place] [address] Coronavirus 2019 RNA by PCR, Symptomaticon 05-24-2021 Date and time of symptom onset [id number] 1 -[facility] Work Phone: Coronavirus 2019 RNA by PCR, Symptomatic Not detected Normal See Below -[facility] Work Phone: Comment on above: SOURCE: Nasal, Nasop haryngealReference Range: Not Detected.This assay is designed to detect the N, ORF1ab and/or S genes of SARS-CoV-2 via nucleic acid amplification. A Negative (NOT DETECTED) result does not preclude 2019-nCoV infection since the adequacy of sample collection and/or low viral burden may result in presence of viral nucleic acids below the clinical sensitivity of this test method. Negative (NOT DETECTED) result should not be used as the sole basis for treatment or other patient management decisions. Rather negative results should be combined with clinical observations, patient history, and epidemiological information to make patient management decisions.Fact sheet for providers: https://www.fda.gov/media/741150/downloadFact sheet for patients: https://www.fda.gov/media/305427/downloadThis test has received FDA Emergency Use Authorization (EUA) and has been verified by [facility] ([facility]). This test is only authorized for the duration of time that circumstances exist to justify the authorization of the emergency use of in vitro diagnostic tests for the detection of SARS-CoV-2 virus and/or diagnosis of COVID-19 infection under section 564(b)(1) of the Act, 21 U.S.C. 360bbb-3(b)(1), unless the authorization is terminated or revoked sooner. [facility] is certified under CLIA-88 as qualified to perform high complexity testing. Testing is performed in the [facility] laboratories located at [address] [place] [address] [place] [address]. Office Visit (Family Cesaredu daria)on 05-24-2021 Follow-up visit Diagnoses/Problems Suspected COVID-19 virus infection (V01.79) (Z20.822) Acute A/ Symptoms started 05/20 after being exposed 05/17. Pfizer booser on 05/14. Negative Binax 05/21. P/ PCR testing. Discussed MAB infusion. She would like to pursue of PCR is positive. Will notify of results. Orders Suspected COVID-19 virus infection Coronavirus 2019 RNA by PCR, Symptomatic; Status:Active; Requested for:24May2021; ? : No RESIDENT IN CONGREGATE CARE SETTING? : No ICU? : No HOSPITALIZED (OR PLANNED TO BE ADMITTED)? : No EMPLOYED IN HEALTHCARE? : No FIRST COVID NASAL SWAB TEST? : No Other symptoms: : Fever Symptom 2 : Sore throat Symptom 1 : Headache DATE OF SYMPTOM ONSET? : 20May2021 IS THE PATIENT SYMPTOMATIC DEFINED BY THE CDC (FEVER>100, NEW WORSENING COUGH OR SHORTNESS OF BREATH, NEW LOSS OF TASTE OR SMELL, SORE THROAT, DIARRHEA, BODY ACHES/MALAISE, HEADACHE, NAUSEA/VOMITING, OR RUNNY NOSE/CONGESTION)? : Yes Follow-up PRN Outpatient Follow-up Status: Active Requested for: 24May2021 Provider Impressions Follow-up PRN Chief Complaint Covid symptoms since thursday. An interactive audio and video telecommunication system which permits real time communications between the patient (at the originating site) and provider (at the distant site) was utilized to provide this telehealth service. Verbal consent was requested and obtained from ANAHY ESCALANTE on this date, 05/24/2021 09:00 AM , for a telehealth visit. History of Present Illness 30 y.o. female presents via VV d/t COVID symptoms that started 05/20 with extreme fatigue, malaise, and throbbing headache, then 05/21 she continued to feel fatigued, nauseous, ST, and headache. She has been sleeping 14-15 hours/night. She started a dry cough with exertion the evening of 05/21 and since become constant. Temp. 100.1 F has been the highest since symptoms started. She currently has a diffuse throbbing headache rated 3/10. She was exposed to COVID 05/17. Binax Home test on 05/21 was negative. She has taken ibuprofen 400mg once a day since symptoms started to relieve malaise sx. The ibuprofen was mildly effective. Denies CP or SOB. She had the [employer] booster 05/14/2021. 'Scores and Scales' FARRAH-7 [id number] 21 FARRAH-7 Total Score3 17 17 Feeling nervous, anxious or on edgeSeveral days - 1 Nearly every day - 3 Nearly every day - 3 Not being able to stop or control worryingNot at all - 0 Nearly every day - 3 Nearly every day - 3 Worrying too much about different thingsNot at all - 0 Nearly every day - 3 Nearly every day - 3 Trouble relaxingSeveral days - 1 Over half the days - 2 Nearly every day - 3 Being so restless that it's hard to sit stillSeveral days - 1 Over half the days - 2 Several days - 1 Becoming easily annoyed or irritableNot at all - 0 Over half the days - 2 Over half the days - 2 Feeling afraid as if something awful might happenNot at all - 0 Over half the days - 2 Over half the days - 2 Review of Systems Constitutional: chills, feeling poorly, feeling tired and fever, but as noted in HPI. Eyes: no blurred vision and no eyesight problems. ENT: sore throat, but as noted in HPI and no nasal congestion. Cardiovascular: no chest pain, no intermittent leg claudication, no lower extremity edema, no palpitations and no syncope. Respiratory: cough, but as noted in HPI, no shortness of breath during exertion and no shortness of breath at rest. Gastrointestinal: nausea, but as noted in HPI. Genitourinary: no dysuria, no change in urinary frequency, no urinary hesitancy, no feelings of urinary urgency and no vaginal discharge. Musculoskeletal: myalgias, but as noted in HPI. Integumentary: no new skin lesions and no rashes. Neurological: headache, but as noted in HPI and no syncope. Psychiatric: no anxiety, no depression, no anhedonia and no substance use disorders. Endocrine: no recent weight gain and no recent weight loss. Active Problems Bruise (924.9) (T14.8XXA) Depression (311) (F32.A) Generalized anxiety disorder (300.02) (F41.1) Headache, migraine (346.90) (G43.909) History of Presence of IUD (V45.51) (Z97.5) Screening for breast cancer (V76.10) (Z12.39) Screening for cervical cancer (V76.2) (Z12.4) Women's annual routine gynecological examination (V72.31) (Z01.419) Past Medical History History of IUD (intrauterine device) in place (V45.51) (Z97.5) 11/2017, BY DR HALL History of Menstruation Onset age 10 years History of Pap test, as part of routine gynecological examination (V76.2) (Z01.419) 04/23/2021; COTEST NEG November 2017 Surgical History History of Intrauterine device placement 11/2017 History of Tonsillectomy with adenoidectomy 2004 History of Tympanoplasty Family History No pertinent family history Family history of Graves' disease (V18.19) (Z83.49) Social History Does not have living will 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 [employer] (more content not included)... Normal [employer] RN CLINICAL TRIALS - Office Visiton 04-12 RN CLINICAL TRIALS - Office Visit Diagnoses/Problems Assessed Women's annual routine gynecological examination (V72.31) (Z01.419) Screening for cervical cancer (V76.2) (Z12.4) Screening for breast cancer (V76.10) (Z12.39) Orders PAP MANNEQUIN MOLD [employer]KER, Cytology; Status:In Progress - Specimen/Data Collected,Retrospective Authorization; Done: 23Apr2021 Last Menstrual Period (LMP): : IUD PAP - Site : CERVICAL Cytology Order : ThinPrep PAP, Screening, HPV CoTest - Include Genotyping Follow-up visit in 12 months Outpatient Follow-up Status: Hold For - Scheduling Requested for: 23Apr2021 Provider Impressions 1) annual Exam-Cervical,colon and breast cancer screening guidelines reviewed. CBE benign. Colon cancer screening is up to date. Pap obtained today. Reviewed HPV vaccine and guidelines, counseled. Discussed safe sex practices. Discussed diet and exercise. Reviewed bone health, namely exercise with vitamin D/calcium. Reviewed fertility goals, plan for iud removal in near future. Pt has PNV. Reviewed timing of sex. Reviewed hereditary cancer screening. Discussed that patient is not at increased risk. All questions answered. Chief Complaint PT IS HERE TODAY FOR A ANNUAL EXAM. LAST PAP 11/2017. HAS NO CONCERNS. DOES A SELF BREAST CHECK OCCASIONALLY. LMP: IUD History of Present Epacsor78-bznj-jzz G0 presents for annual exam. Patient safe at home denies abuse. Patient has migraines improving with adjustment of meds and finding out there is an occiput component. Patient working on physical activity. Patient COVID vaccinated. Patient does have breast exams no new lumps bumps masses. Patient notes she has an IUD and that they are thinking about conception here in the next couple months. Patient already started vitamins. Patient is no acute concerns Review of Systems Constitutional: No fevers, chills Eye:no vision changes Respiratory: no SOB Cardiovascular: no chest pain Breast: No lump/mass or discharge Gastrointestinal: No nausea, vomiting, diarrhea, constipation, abdominal pain Genitourinary:no dysuria Gynecology: See HPI Endocrine: No heat or cold intolerance Musculoskeletal: No decreased ROM Skin:No rash Neurologic: No numbness tingling Psychiatric: No anxiety, depression All other: all other systems reviewed and negative for complaint Active Problems Problems Bruise (924.9) (T14.8XXA) Depression (311) (F32.A) Generalized anxiety disorder (300.02) (F41.1) Headache, migraine (346.90) (G43.909) History of Presence of IUD (V45.51) (Z97.5) Screening for breast cancer (V76.10) (Z12.39) Screening for cervical cancer (V76.2) (Z12.4) Women's annual routine gynecological examination (V72.31) (Z01.419) Past Medical History Problems History of IUD (intrauterine device) in place (V45.51) (Z97.5) History of Menstruation Onset age 10 years History of Pap test, as part of routine gynecological examination (V76.2) (Z01.419) November 2017 Surgical History Problems History of Intrauterine device placement 11/2017 History of Tonsillectomy with adenoidectomy 2004 History of Tympanoplasty Family History Mother No pertinent family history Father Family history of Graves' disease (V18.19) (Z83.49) Social History Problems Does not have living will 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 Vitamin D TABS Womens Multivitamin Plus TABS Vitals Vital Signs Recorded: 23Apr2021 09:54AM Nnbrqexstlv04.2 F Mavfekli116 Qhpoyvvsb71 Height5 ft 7 in Tlesic074 lb 14.24 oz BMI Lyrfrzhgfz55.56 kg/m2 BSA Calculated2.06 Tobacco Useb) No Fall Screeninga) No falls within the last year LMPIUD Physical Exam General: None acute distress Eye: Intraocular movements are intact HEENT: Normocephalic Cardiovascular: Regular rate rhythm Respiratory: Lungs are clear to auscultation, respirations are nonlabored Breast: No masses no tenderness no discharge no adenopathy or skin changes Gastrointestinal: Soft nontender nondistended normal bowel sounds Gynecology: External genitalia within normal limits for age. Urethral meatus normal bladder nontender. Vagina without discharge. No vaginal bleeding. Small nulliparous cervix with IUD strings noted. No lesions. No CMT. Uterus mobile midline nontender. No levator ani tenderness. No adnexal tenderness. No adnexal masses Musculoskeletal: Normal range of motion (more content not included)... Normal [employer] Tobacco Screening.on 021 Fall risk assessment a) No falls within the last year [employer] Work Phone: Last menstrual period start date IUD [employer] Work Phone: Tobacco use status [facility] b) No [employer] Work Phone: Office Visit (Family Dariela huff)on 02-15-2021 Follow-up visit Diagnoses/Problems Encounter for preventive health examination (V70.0) (Z00.00) Bruise (924.9) (T14.8XXA) Acute-stable A: Pt. noted a bullseye appearing bruise on her left thigh. She is concerned about Lyme disease as she was recently at a restorationist outing where others found ticks. The area is a faded bruise that does not resemble Lyme disease. P: Follow-up as needed. Orders Health Maintenance Follow-up PRN Outpatient Follow-up Status: Active Requested for: [id number] Provider Impressions Educated on Lyme disease appearance. Follow-up PRN Chief Complaint Bruise/rash consistent with lymes disease. History of Present Illness 30 y.o. female presents for possible Lyme disease. 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 She denies seeing a tick on her person. She has a bruise on her left thigh that resembles a bullseye appearance described in Lyme disease so she is concerned. She denies feeling ill. 'Scores and Scales' FARRAH-7 [id number] 21 FARRAH-7 Total Score3 17 17 Feeling nervous, anxious or on edgeSeveral days - 1 Nearly every day - 3 Nearly every day - 3 Not being able to stop or control worryingNot at all - 0 Nearly every day - 3 Nearly every day - 3 Worrying too much about different thingsNot at all - 0 Nearly every day - 3 Nearly every day - 3 Trouble relaxingSeveral days - 1 Over half the days - 2 Nearly every day - 3 Being so restless that it's hard to sit stillSeveral days - 1 Over half the days - 2 Several days - 1 Becoming easily annoyed or irritableNot at all - 0 Over half the days - 2 Over half the days - 2 Feeling afraid as if something awful might happenNot at all - 0 Over half the days - 2 Over half the days - 2 Review of Systems Constitutional: no chills, not feeling poorly, not feeling tired and no fever. Eyes: no blurred vision and no eyesight problems. Neck: no mass(es) and no swelling. Cardiovascular: no chest pain, no intermittent leg claudication, no lower extremity edema, no palpitations and no syncope. Respiratory: no cough, no shortness of breath during exertion, no shortness of breath at rest and no wheezing. Gastrointestinal: no abdominal pain, no blood in stools, no constipation, no diarrhea, no melena, no nausea, no rectal pain and no vomiting. Genitourinary: no dysuria, no change in urinary frequency, no urinary hesitancy, no feelings of urinary urgency and no vaginal discharge. Musculoskeletal: no arthralgias, no back pain and no myalgias. Integumentary: as noted in HPI, no new skin lesions and no rashes. Neurological: no difficulty walking, no headache, no limb weakness, no numbness and no tingling. Psychiatric: no anxiety, no depression, no anhedonia and no substance use disorders. Endocrine: no recent weight gain and no recent weight loss. Hematologic/Lymphatic: no tendency for easy bruising and no swollen glands. 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 Never smoker No illicit drug use Occasional alcohol use Presence of IUD (V45.51) (Z97.5) Sexually active Allergies codeine Vomiting; Recorded By: Columba Perez; 07/26/2020 12:58:16 PM Sulfa Drugs Unknown; Recorded By: Columba Perez; 07/26/2020 12:58:16 PM Current Meds Medication NameInstructionReason hydrOXYzine HCl - 10 MG Oral Tablet1-2 tabs every 4-6 hours prnGeneralized anxiety disorder Magnesium TABSHealth Maintenance Vitamin B Complex CAPSHealth Maintenance Vitamin D TABSHealth Maintenance Womens Multivitamin Plus TABSHealth Maintenance Mirena (52 MG) 20 MCG/24HR Intrauterine Intrauterine Device Naratriptan HCl - 2.5 MG Oral Tablet Ondansetron HCl - 4 MG Oral Tablet Rizatriptan Benzoate 10 MG Oral Tablet Sertraline HCl - 50 MG Oral TabletTAKE 1 AND 1/2 TABLETS DAILY. Vitals Vital Signs Recorded: [id number] 03:26PM Heart Rate72 Uuddwdnj610 Fzrltctoe52 Height5 ft 7 in Clqtxd778 lb BMI Cwcwyujlxu01.89 kg/m2 BSA Calculated2.06 Tobacco Useb) No Physical Exam Constitutional: Alert and in no acute distress. Well developed, well nourished. Head and Face: Head and face: Normal. Eyes: Normal external exam. Ears, Nose, Mouth, and Throat: External inspection of ears and nose: Normal. Cardiovascular: Heart rate and rhythm were normal, normal S (more content not included)... Normal [employer] Tobacco Screening.on Tobacco use status [facility] b) No [facility] Work Phone: Tobacco Screening.on 021 Tobacco use status [facility] b) No [facility] Work Phone: US Abdomen, Limitedon 2017 INR Coag RelTime (Bld) Exam Date/Time: 07:12 EDTReason for Exam:ABD PAIN ATTN : RUQ;Abdominal painReportPROCEDURE: US Abdomen, Limited, 11/02/2017 6:54 AMCLINICAL INDICATIONS: Right upper quadrant abdominal pain and nauseaCOMPARISON: CT abdomen and pelvis 10/11/2017.TECHNIQUE: Right upper quadrant abdominal sonogramFINDINGS: Visualized pancreas is unremarkable. No ductal dilatation is seen.Hepatic parenchyma is normal in morphology and echogenicity. Hepatic contour issmooth. Focal hepatic abnormality is not seen.Common bile duct 0.2 cm. The gallbladder is normal in size. Gallbladdercalculus, wall thickening, or pain in the region is not elicited.Visualized right kidney is unremarkable.Free fluid is not evident.IMPRESSION:No acute right upper quadrant abdominal pathology. FINAL REPORT Dictated: 11/02/2017 9:29 am Buddy Cabrera MDgned (Electronic Signature): 11/02/2017 9:29 amSigned by: Buddy Cabrera MD Technologist: BS Normal [facility] Chlamydia GC by PCRon 2017 Chlamydia by PCR. Not Detected Normal Not Detected [facility] Comment on above: Result Comment: Xper t CT/NG Assay performance has not been evaluated in patients less than 14 years of age. Performed By: #### 2 [id number] ####JAYLENE [address] [place] [address] Gonorrhoeae by PCR Not Detected Normal Not Detected [facility] Comment on above: Result Comment: Xper t CT/NG Assay performance has not been evaluated in patients less than 14 years of age. Performed By: #### 2 [id number] ####JAYLENE [address]uz[address] [place] [address] Auto Diffon 10-12-2017 Basophils Auto #/vol (Bld) 0.1 E3/mcL Normal 0.0-0.2 [facility] Comment on above: Order Comment: Order Added by Discern Expert. Performed By: #### 2 [id number] ####JAYLENE [address] [place] [address] Basophils/100 WBC Auto (Bld) 0.6 % Normal 0.0-2.0 [facility] Comment on above: Order Comment: Order Added by Discern Expert. Performed By: #### 2 712970 ####JAYLENE RileyO[address]Vxfn[address] [place] [address] Eos Absolute 0.1 E3/mcL Normal 0.0-0.7 [facility] Comment on above: Order Comment: Order Added by Discern Expert. Performed By: #### 2 574702 ####JAYLENE [address]Cx[address]Eckt[address] [place] [address] Eosinophils/100 leukocytes 0.9 % Normal 0.0-11.0 [facility] Comment on above: Order Comment: Order Added by Discern Expert. Performed By: #### 2 353016 ####JAYLENE RileyFtfTqee[address] [place] [address] Lymphocytes 3.8 E3/mcL High 1.2-3.4 [facility] Comment on above: Order Comment: Order Added by Discern Expert. Performed By: #### 2 185826 ####JAYLENE [address] [place] [address] Lymphocytes/100 leukocytes 43.4 % Normal 20.0-55.0 [facility] Comment on above: Order Comment: Order Added by Discern Expert. Performed By: #### 2 399086 ####JAYLENE [address] [place] [address] [place] Absolute 0.7 E3/mcL Normal 0.0-0.7 [facility] Comment on above: Order Comment: Order Added by Discern Expert. Performed By: #### 2 912774 ####JAYLENE [address] [place] [address] Monocytes/100 leukocytes 8.4 % Normal 0.0-10.0 [facility] Comment on above: Order Comment: Order Added by Discern Expert. Performed By: #### 2 431076 ####JAYLENE [address] [place] [address] Neutro Absolute 4.1 E3/mcL Normal 1.4-6.5 [facility] Comment on above: Order Comment: Order Added by Discern Expert. Performed By: #### 2 606807 ####JAYLENE [address] [place] [address] Neutro Auto 46.7 % Normal 37.0-75.0 [facility] Comment on above: Order Comment: Order Added by Amarjit Expert. Performed By: #### 2 079672 ####JAYLENE [address] [place] [address] BMPon 10-12-2017 BUN/Creatinine Ratio 18.6 ratio Normal 5.4-30.0 [facility] Comment on above: Performed By: #### 2 157488 ####JAYLENE [address] [place] [address] Creatinine 0.7 mg/dL Normal 0.6-1.3 [facility] Comment on above: Performed By: #### 2 291925 ####JAYLENE [address] [place] [id number] Urea nitrogen 13 mg/dL Normal 7-18 [facility] Comment on above: Performed By: #### 2 652066 ####JAYLENE [address] [place] [address] Calcium 9.2 mg/dL Normal 8.4-10.2 [facility] Comment on above: Performed By: #### 2 433063 ####JAYLENE [address] [place] [address] Chloride 105 mmol/L Normal 98-107 [facility] Comment on above: Performed By: #### 2 732231 ####JAYLENE [address] [place] [address] CO2 22.8 mmol/L Low 24.0-30.0 [facility] Comment on above: Performed By: #### 2 892942 ####JAYLENE [address] [place] [address] Glucose mass conc 94 mg/dL Normal 70-99 [facility] Comment on above: Performed By: #### 2 671734 ####JAYLENE [address] [place] [address] Potassium molar conc 3.9 mmol/L Normal 3.5-5.1 [facility] Comment on above: Performed By: #### 2 899609 ####JAYLENE [address] [place] [id number] Sodium 136 mmol/L Normal 136-145 [facility] Comment on above: Performed By: #### 2 046638 ####JAYLENE [address] [place] [address] CBC w/ Auto Diffon 8 Erythrocyte distribution width Auto Ratio (RBC) 12.8 % Normal 11.5-14.5 [facility] Comment on above: Performed By: #### 2 353468 ####JAYLENE [address] [place] [address] Erythrocytes (RBC) 4.54 E6/mcL Normal 3.90-5.40 [facility] Comment on above: Performed By: #### 2 508368 ####JAYLENE [address]mrTzsv[address] [place] [address] Hematocrit (HCT) 38.9 % Normal 36.0-48.0 [facility] Comment on above: Performed By: #### 2 732754 ####JAYLENE [address] [place] [id number] Hemoglobin mass conc (Bld) 13.3 g/dL Normal 12.0-16.0 [facility] Comment on above: Performed By: #### 2 286717 ####JAYLENE [address] [place] [address] MCH 29.3 pg Normal 27.0-31.0 [facility] Comment on above: Performed By: #### 2 233772 ####JAYLENE [address] [place] [address] MCHC mass conc (RBC) 34.2 g/dL Normal 33.0-37.0 [facility] Comment on above: Performed By: #### 2 202988 ####JAYLENE [address] [place] [address] MCV 85.7 fL Normal 78.0-100.0 [facility] Comment on above: Performed By: #### 2 663058 ####JAYLENE [address] [place] [address] Platelet mean volume (PMV) 8.1 fL Normal 7.4-11.0 [facility] Comment on above: Performed By: #### 2 153422 ####JAYLENE [address] [place] [id number] Platelets 293 E3/mcL Normal 130-400 [facility] Comment on above: Performed By: #### 2 312035 ####JAYLENE [address] [place] [address] WBC (Leukocytes) 8.8 E3/mcL Normal 3.6-11.0 [facility] Comment on above: Performed By: #### 2 730040 ####JAYLENE [address]IctAslv[address] [place] [address] CT Abdomen/Pelvis w/ Contras ton 10-12-2017 CT Abdomen/Pelvis w/ Contrast Exam Date/Time:10/11/2017 23:27 EDTReason for Exam:Abdominal Pain;Other (please specify)ReportCT SCAN ABDOMEN AND PELVIS:CLINICAL HISTORY: Right upper quadrant pain, low-grade fever x two months.COMPARISON: None.TECHNIQUE: Following the uneventful administration of 100 mL of Omnipaque 300IV contrast helical imaging of the abdomen and pelvis is performed. Multiplanarreconstruction s are submitted.Dose reduction techniques were achieved by using: automated exposure controland/or adjustment of mA and /or kV according to patient size and/or use ofiterative reconstruction technique.FINDINGS:ABDOME N: Atelectasis in the lingula is seen. The imaged lung bases areotherwise clear. The liver, spleen, adrenals, kidneys, pancreas, gallbladder,and biliary ducts are normal. No renal or ureteric stones are present. There isno hydronephrosis. There is no free fluid, fluid collection, or adenopathy.The stomach, proximal small bowel, and imaged colon are normal in course andcaliber. No bowel wall thickening is seen. The aorta and IVC are within normallimits. No acute osseous lesion is seen.PELVIS: The distal ureters, urinary bladder, rectosigmoid colon, distal smallbowel loops, appendix, uterus and adnexa are normal. Pelvic vasculature isnormal. There is no free fluid, fluid collection or adenopathy. No acuteosseous abnormality is present.IMPRESSION:1. No acute abdominal or pelvic inflammatory process.2. No adenopathy.3. Normal appendix. FINAL REPORT Dictated: 10/12/2017 0:16 am Tae Carbone MD KSigned (Electronic Signature): 10/12/2017 0:16 amSigned by: Tae Carbone MD Technologist: BOWEN Normal [facility] Hep Func Panelon 10-12-2017 Alanine aminotransferase (ALT) 14 Int._Unit/L Normal 10-40 [facility] Comment on above: Performed By: #### 2 015365 ####JAYLENE [address] [place] [address] Albumin 4.3 g/dL Normal 3.2-5.0 [facility] Comment on above: Performed By: #### 2 729288 ####JAYLENE [address]ZmoTudc[address] [place] [address] Albumin/Globulin Ratio 1.5 {ratio} Normal 1.1-1.9 [facility] Comment on above: Performed By: #### 2 797250 ####JAYLENE [address] [place] [address] Alk Phos 33 Int._Unit/L Low 42-121 [facility] Comment on above: Performed By: #### 2 468930 ####JAYLENE [address] [place] [address] Aspartate aminotransferase (AST) 19 Int._Unit/L Normal 10-42 [facility] Comment on above: Performed By: #### 2 713992 ####JAYLENE [address] [place] [address] Bili Direct <.10 Normal .00-.20 [facility] Comment on above: Performed By: #### 2 096510 ####JAYLENE [address] [place] [address] Bili Indirect >0.3 Normal [facility] Comment on above: Result Comment: No e stablished ranges available for the Indirect Biliruben. Performed By: #### 2 355957 ####JAYLENE [address] [place] [address] Bili Total 0.4 mg/dL Normal 0.2-1.0 [facility] Comment on above: Performed By: #### 2 042931 ####JAYLENE [address] [place] [address] Globulin 2.9 g/dL Normal 2.0-4.0 [facility] Comment on above: Performed By: #### 2 569118 ####JAYLENE [address] [place] [address] Protein 7.2 g/dL Normal 6.4-8.3 [facility] Comment on above: Performed By: #### 2 295238 ####JAYLENE [address] [place] [address] Lipase Levelon 10-12-2017 Lipase Lvl 21 U/L Normal 8-57 [facility] Comment on above: Performed By: #### 2 884926 ####JAYLENE [address] [place] [address] U BhCG Qlton 10-12-2017 HCG.beta subunit Qn Negative Normal Neg [facility] Comment on above: Performed By: #### 2 805533 ####JAYLENE [address]WnlSyrx[address] [place] [address] UA Completeon 10-12-2017 UA Blood Negative Normal Negative [facility] Comment on above: Performed By: #### 2 178749 ####JAYLENE [address] [place] [address] UA Bacteria Trace Abnormal None [facility] Comment on above: Performed By: #### 2 125851 ####JAYLENE [address]Cfhx[address] [place] [address] UA Clarity Clear Normal Clear [facility] Comment on above: Performed By: #### 2 384017 ####JAYLENE [address]jlLugi[address] [place] [address] UA Leuk Est Trace Normal Negative [facility] Comment on above: Performed By: #### 2 713551 ####JAYLENE FepGkjd[address] [place] [address] UA Mucous Trace Abnormal Trace [facility] Comment on above: Performed By: #### 2 158163 ####JAYLENE ClxIhno[address] [place] [address] UA Nitrite Negative Normal Negative [facility] Comment on above: Performed By: #### 2 798380 ####JAYLENE YjoXmzl[address] [place] [address] UA pH 5.0 Normal 4.6-8.0 [facility] Comment on above: Performed By: #### 2 884167 ####JAYLENE [address]Peau[address] [place] [address] UA Protein Negative Normal Negative [facility] Comment on above: Performed By: #### 2 532257 ####JAYLENE [address]Nyak[address] [place] [address] UA Spec Grav 1.010 Normal 1.003-1.030 [facility] Comment on above: Performed By: #### 2 093789 ####JAYLENERas [address]BzhWgbg[address] [place] [address] UA Squam Epithelial 0-5 Normal 0-5 [facility] Comment on above: Performed By: #### 2 113033 ####JAYLENE [address] [place] [address] UA Urobilinogen Negative Normal [facility] Comment on above: Performed By: #### 2 283393 ####JAYLENE [address] [place] [address] UA WBC 0-5 Normal 0-5 [facility] Comment on above: Performed By: #### 2 641527 ####JAYLENE [address] [place] [address] Urine, color Straw Normal Yellow [facility] Comment on above: Performed By: #### 2 486373 ####JAYLENE [address] [place] [address] Urine, erythrocytes 0-3 Normal 0-3 [facility] Comment on above: Performed By: #### 2 677826 ####JAYLENE [address] [place] [address] Urine, glucose Negative Normal Negative [facility] Comment on above: Performed By: #### 2 465757 ####JAYLENE [address] [place] [address] Urine, ketones presence Negative Normal Negative [facility] Comment on above: Performed By: #### 2 365178 ####JAYLENE [address] [place] [address] Urine, urobilinogen Negative Normal Negative [facility] Comment on above: Performed By: #### 2 402844 ####JAYLENE [address] [place] [address] eGFRon 10-12-2017 eGFR (non-black) mL/min/{1.73_m2} Normal [facility] Comment on above: Order Comment: Order added by Discern Expert. Performed By: #### 2 727838 ####JAYLENE [address] [place] [address] Hep A,B, C Panelon 8 BSA (Body Surface Area) Negative Normal Negative [facility] Comment on above: Performed By: #### 2 804597 ####JAYLENE [address]WllHncw[address] [place] [address] Hep A IgM Negative Normal Negative [facility] Comment on above: Performed By: #### 2 626028 ####JAYLENE RileyBfcPoog[address] [place] [address] Hep B Core IgM Negative Normal Negative [facility] Comment on above: Performed By: #### 2 704636 ####JAYLENE [address] [place] [address] Hep C Ab <0.1 Normal 0.0-0.9 [facility] Comment on above: Result Comment: Nega tive: < 0.8 Indeterminate: 0.8 - 0.9 Positive: > 0.9 The CDC recommends that a positive HCV antibody result be followed up with a HCV Nucleic Acid Amplification test (189382).Performed At: [facility] [address] [id number] Vincent PhD Ph:[phone] Performed By: #### 2 488802 ####JAYLENE RileyYhaPfnn[address] [place] [address] Lab Miscellaneouson 09-26-19 18 Status See Ref Lab Report [facility] Comment on above: Order Comment: CMV I gM Performed By: #### 2 943679 ####JAYLENE [address]XhfBxhq[address] [place] [address] Status See Ref Lab Report [facility] Comment on above: Order Comment: CMV I gG Performed By: #### 2 928676 ####JAYLENE [address]UasGiae[address] [place] [address] Status See Ref Lab Report [facility] Comment on above: Order Comment: EBV p benton Performed By: #### 2 082935 ####JAYLENE [address]AbrTyet[address] [place] [address] Lab Miscellaneouson 09-25-19 Test Name LC [id number] [facility] Comment on above: Order Comment: CMV I gG Performed By: #### 2 738676 ####JAYLENE RileyMeuWfvy[address] [place] [address] Test Name LC [id number] [facility] Comment on above: Order Comment: CMV I gM Performed By: #### 2 127174 ####JAYLENE [address] [place] [id number] Test Name SHELLIE [id number] Normal [facility] Comment on above: Order Comment: EBV p benton Performed By: #### 2 853303 ####JAYLENE [address]SoyNfku[address] [place] [id number] MRI Brain w/ + w/o Contrasto n 09-17-2017 MRI Brain w/ + w/o Contrast Exam Date/Time:09/17/2017 13:07 ESTReason for Exam:HEADACHE FEVER OF UNKNOWN ORIGIN;HeadacheReportMRI OF THE BRAIN WITH AND WITHOUT CONTRASTCLINICAL HISTORY: Headache of unknown originThere are no previous brain images available.TECHNIQUE: Sagittal and axial T1 with axial T2 and FLAIR imaging wassupplemented with gadolinium-enhanced studies. The patient received 17 mL ofMultiHance for the contrast enhanced portion of the study.FINDINGS: No intracranial hemorrhage or extraaxial fluid collections areidentified. Bill-white matter differentiation is preserved without a focus ofabnormal hyperintensity. The ventricular system maintains its usual size,shape, and position without midline shift. Flow-voids are patent at the skullbase. This sulcal pattern is symmetrical over the convexities. There is a smallmucus retention cyst within the left maxillary sinusGadolinium-enhanced images show no abnormal intraaxial or extraaxial enhancingmass.SUMMARY:1. No acute hemorrhage, focal edema, or mass-effect.2. There is no evidence of an enhancing intracranial mass. FINAL REPORT Dictated: 09/17/2017 1:30 pm Holden Ponce DO WSigned (Electronic Signature): 09/17/2017 1:30 pmSigned by: Holden Ponce DO Technologist: KATHERIN Normal [facility] Auto Diffon 09-11-2017 Basophils Auto #/vol (Bld) 0.0 E3/mcL Normal 0.0-0.2 [facility] Comment on above: Order Comment: Order Added by Discern Expert. Performed By: #### 2 951734 ####JAYLENE [address]woDdlj[address] [place] [id number] Basophils/100 WBC Auto (Bld) 0.6 % Normal 0.0-2.0 [facility] Comment on above: Order Comment: Order Added by Discern Expert. Performed By: #### 2 164487 ####JAYLENE [address]AvpTtpo[address] [place] [address] Eos Absolute 0.0 E3/mcL Normal 0.0-0.7 [facility] Comment on above: Order Comment: Order Added by Discern Expert. Performed By: #### 2 520157 ####JAYLENE [address]Eqmq[address] [place] [address] Eosinophils/100 leukocytes 0.5 % Normal 0.0-11.0 [facility] Comment on above: Order Comment: Order Added by Discern Expert. Performed By: #### 2 [id number] ####JAYLENE SrfRmbh9940 [place] [address] Lymphocytes 1.7 E3/mcL Normal 1.2-3.4 [facility] Comment on above: Order Comment: Order Added by Discern Expert. Performed By: #### 2 [id number] ####JAYLENE QjxXhqo1112 [place] [address] Lymphocytes/100 leukocytes 33.0 % Normal 20.0-55.0 [facility] Comment on above: Order Comment: Order Added by Discern Expert. Performed By: #### 2 [id number] ####JAYLENE RileyMlhSuot7323 [place] [address] [place] Absolute 0.4 E3/mcL Normal 0.0-0.7 [facility] Comment on above: Order Comment: Order Added by Discern Expert. Performed By: #### 2 [id number] ####JAYLENE RileyPgtKwzi1562 [place] [address] Monocytes/100 leukocytes 7.0 % Normal 0.0-10.0 [facility] Comment on above: Order Comment: Order Added by Discern Expert. Performed By: #### 2 [id number] ####JAYLENE RileyKlnFohr2586 [place] [address] Neutro Absolute 3.1 E3/mcL Normal 1.4-6.5 [facility] Comment on above: Order Comment: Order Added by Discern Expert. Performed By: #### 2 [id number] ####JAYLENE RileyPhkGbhc9021 [place] [address] Neutro Auto 58.9 % Normal 37.0-75.0 [facility] Comment on above: Order Comment: Order Added by Discern Expert. Performed By: #### 2 [id number] ####JAYLENE ExhOhlw3727 [place] [address] BhCG Quanton 09-11-2017 HCG.beta subunit Qn m[IU]/mL Normal [facility] Comment on above: Result Comment: FEMA LE (NON-) & MALE <3 BORDERLINE 3 - 5 SUGGEST REPEAT TESTING FEMALE () 1 D - 1 WK 5 - 50 1 - 2 WK 50 - 500 2 - 3 WK 100 - 5000 3 - 4 WK 500 - 24994 4 - 5 WK 1000 - 09509 5 - 6 WK 32647 - 604230 6 - 8 WK 16366 - 120398 2 - 3 [place] [address] - 053977 Performed By: #### 2 [id number] ####JAYLENERas RileyLqrRggi2925 [place] [address] CBC w/ Auto Diffon 8 Erythrocyte distribution width Auto Ratio (RBC) 13.0 % Normal 11.5-14.5 [facility] Comment on above: Performed By: #### 2 [id number] ####JAYLENERas RileySeyClkh9536 [place] [address] Erythrocytes (RBC) 4.74 E6/mcL Normal 3.90-5.40 [facility] Comment on above: Performed By: #### 2 [id number] ####JAYLENERas RlieyHnvHxip7195 [place] [address] Hematocrit (HCT) 40.9 % Normal 36.0-48.0 [facility] Comment on above: Performed By: #### 2 [id number] ####JAYLENERas RileyWjaEksd8268 [place] [address] Hemoglobin mass conc (Bld) 14.5 g/dL Normal 12.0-16.0 [facility] Comment on above: Performed By: #### 2 [id number] ####JAYLENERas RileyRciEbbz5959 [place] [address] MCH 30.5 pg Normal 27.0-31.0 [facility] Comment on above: Performed By: #### 2 [id number] ####JAYLENE RileyPjqGwbo1039 [place] [address] MCHC mass conc (RBC) 35.3 g/dL Normal 33.0-37.0 [facility] Comment on above: Performed By: #### 2 [id number] ####JAYLENE Shepherdo1025 [place] [address] MCV 86.3 fL Normal 78.0-100.0 [facility] Comment on above: Performed By: #### 2 [id number] ####JAYLENE [address]pherdo[address] [place] [address] Platelet mean volume (PMV) 7.5 fL Normal 7.4-11.0 [facility] Comment on above: Performed By: #### 2 [id number] ####JAYLENE [address] [place] [address] Platelets 295 E3/mcL Normal 130-400 [facility] Comment on above: Performed By: #### 2 [id number] ####JAYLENE [address] [place] [address] WBC (Leukocytes) 5.2 E3/mcL Normal 3.6-11.0 [facility] Comment on above: Performed By: #### 2 [id number] ####JAYLENE [address] [place] [address] CMPon 09-11-2017 Alanine aminotransferase (ALT) 23 Int._Unit/L Normal 10-40 [facility] Comment on above: Performed By: #### 2 [id number] ####JAYLENE [address]GwiAvaj1456 [place] [address] Albumin 4.3 g/dL Normal 3.2-5.0 [facility] Comment on above: Performed By: #### 2 [id number] ####JAYLENE RileyGpiBtbp5640 [place] [address] Albumin/Globulin Ratio 1.5 {ratio} Normal 1.1-1.9 [facility] Comment on above: Performed By: #### 2 [id number] ####JAYLENE RileyHnfLjrw9622 [place] [address] Alk Phos 34 Int._Unit/L Low 42-121 [facility] Comment on above: Performed By: #### 2 [id number] ####JAYLENE XsbQnhx9666 [place] [address] Aspartate aminotransferase (AST) 24 Int._Unit/L Normal 10-42 [facility] Comment on above: Performed By: #### 2 286592 ####JAYLENE LfqLewe7222 [place] [address] Bili Total 0.6 mg/dL Normal 0.2-1.0 [facility] Comment on above: Performed By: #### 2 292812 ####JAYLENE BsdFkgg8896 [place] [address] BUN/Creatinine Ratio 18.3 ratio Normal 5.4-30.0 [facility] Comment on above: Performed By: #### 2 [id number] ####JAYLENE CfuFtad0956 [place] [address] Calcium 9.2 mg/dL Normal 8.4-10.2 [facility] Comment on above: Performed By: #### 2 215250 ####JAYLENE ByfSnwi7607 [place] [address] Chloride 105 mmol/L Normal 98-107 [facility] Comment on above: Performed By: #### 2 [id number] ####JAYLENE PfsSsjx0660 [place] [address] CO2 24.3 mmol/L Normal 24.0-30.0 [facility] Comment on above: Performed By: #### 2 092595 ####JAYLENE UbtQxxg1005 [place] [address] Creatinine 0.6 mg/dL Normal 0.6-1.3 [facility] Comment on above: Performed By: #### 2 [id number] ####JAYLENE TofRqjr4402 [place] [address] Globulin 2.8 g/dL Normal 2.0-4.0 [facility] Comment on above: Performed By: #### 2 [id number] ####JAYLENE SmnTvhg4334 [place] [address] Glucose mass conc 92 mg/dL Normal 70-99 [facility] Comment on above: Performed By: #### 2 [id number] ####JAYLENE RileyFjbXnor4588 [place] [address] Potassium molar conc 3.8 mmol/L Normal 3.5-5.1 [facility] Comment on above: Performed By: #### 2 [id number] ####JAYLENE HbqUsjo7579 [place] [address] Protein 7.1 g/dL Normal 6.4-8.3 [facility] Comment on above: Performed By: #### 2 488324 ####JAYLENE PfiUhna7237 [place] [address] Sodium 137 mmol/L Normal 136-145 [facility] Comment on above: Performed By: #### 2 [id number] ####JAYLENE YhoEvks2921 [place] [address] Urea nitrogen 11 mg/dL Normal 7-18 [facility] Comment on above: Performed By: #### 2 201417 ####JAYLENE CfzLkcm4314 [place] [address] TSHon 09-11-2017 Thyroid stimulating hormone (TSH) 1.52 mIU/m Normal 0.30-5.60 [facility] Comment on above: Performed By: #### 2 234250 ####JAYLENE JouWqrn5[address] [place] [id number] UA Completeon 09-11-2017 UA Blood Negative Normal Negative [facility] Comment on above: Performed By: #### 8 [id number] ####JAYLENE Urinalysis Automated Atgszkcwvr7942 [place] [address] UA Clarity Clear Normal Clear [facility] Comment on above: Performed By: #### 8 [id number] ####JAYLENE Urinalysis Automated Cjlixfxsjk4781 [place] [address] UA Leuk Est Trace Normal Negative [facility] Comment on above: Performed By: #### 8 [id number] ####JAYLENE Urinalysis Automated Amghtueurs0159 [place] [address] UA Mucous Trace Abnormal Trace [facility] Comment on above: Performed By: #### 8 [id number] ####JAYLENE Urinalysis Automated Lbusunpfqt76[address] [place] [id number] UA Nitrite Negative Normal Negative [facility] Comment on above: Performed By: #### 8 [id number] ####JAYLENE Urinalysis Automated Ufdeovhuvr3626 [place] [address] UA pH 5.0 Normal 4.6-8.0 [facility] Comment on above: Performed By: #### 8 [id number] ####JAYLENE Urinalysis Automated Owvixipvky6129 [place] [address] UA Protein Negative Normal Negative [facility] Comment on above: Performed By: #### 8 [id number] ####JAYLENE Urinalysis Automated Akajjmxmoi9956 [place] [address] UA Spec Grav 1.016 Normal 1.003-1.030 [facility] Comment on above: Performed By: #### 8 [id number] ####JAYLENE Urinalysis Automated Mcjglrkyss8045 [place] [address] UA Squam Epithelial 0-5 Normal 0-5 [facility] Comment on above: Performed By: #### 8 [id number] ####JAYLENE Urinalysis Automated Szufmdnphe2774 [place] [address] UA Urobilinogen Negative Normal [facility] Comment on above: Performed By: #### 8 [id number] ####JAYLENE Urinalysis Automated Yrwtrudrnk0072 [place] [address] UA WBC 0-5 Normal 0-5 [facility] Comment on above: Performed By: #### 8 [id number] ####JAYLENE Urinalysis Automated Eeccxvbzrj3157 [place] [address] Urine, color Yellow Normal Yellow [facility] Comment on above: Performed By: #### 8 [id number] ####JAYLENE Urinalysis Automated [address]omby[address] [place] [id number] Urine, glucose Negative Normal Negative [facility] Comment on above: Performed By: #### 8 [id number] ####JAYLENE Urinalysis Automated Dghbgxrrha5246 [place] [address] Urine, ketones presence Negative Normal Negative [facility] Comment on above: Performed By: #### 8 [id number] ####JAYLENE Urinalysis Automated Oyberkibqz0294 [place] [address] Urine, urobilinogen Negative Normal Negative [facility] Comment on above: Performed By: #### 8 [id number] ####JAYLENE Urinalysis Automated Rmcvbpgzko9585 [place] [id number] XR Chest 2 Viewson 8 XR Chest 2 Views Exam Date/Time: 018 10:28 ESTReason for Exam:Other (please specify)ReportEXAM: XR Chest 2 ViewsDATE: 09/11/2017, 11:54 AMACCESSION: [id number].HISTO RY: Intermittent fever.COMPARISON: None.FINDINGS: Heart and mediastinum are within normal limits. Lungs are clearbilaterally. Skeleton is age appropriate.IMPRESSION:No acute disease by radiography. FINAL REPORT Dictated: 09/11/2017 12:01 pm Eh Hernandez MDSigned (Electronic Signature): 09/11/2017 12:01 pmSigned by: Eh Hernandez MD Technologist: GLP Normal [facility] eGFRon 09-11-2017 eGFR (non-black) mL/min/{1.73_m2} Normal [facility] Comment on above: Order Comment: Order added by Discern Expert. Performed By: #### 1 [id number] ####JAYLENE NxfAljg4349 [place] [address] Lab Miscellaneouson 01-24-20 17 Status See Ref Lab Report Normal [facility] Comment on above: Order Comment: Pap w ith HPV Performed By: #### 1 [id number] ####JAYLENE Send Outs [address]riesrnc[address] [place] [id number] Lab Miscellaneouson 01-20-20 17 Test Name Pap Smear Normal [facility] Comment on above: Order Comment: Pap w ith HPV Performed By: #### 1 [id number] ####JAYLENE Send Outs Qyahmuiapv5092 [place] [id number] Vital Signs Date Time Vital Sign Value Performing Clinician Facility 02-16-2025 11:29-0400 Body height 172.72 cm Noemi RUFF Work Phone: [facility] 02-16-2025 11:29-0400 Body mass index (BMI) [Ratio] 33.1 kg/m2 Noemi Guillenitz [employer] Work Phone: [facility] 02-16-2025 11:29-0400 Body weight 98.88 kg Noemi Guillenitz [employer] Work Phone: [facility] 02-16-2025 11:26-0400 Diastolic blood pressure 76 mm[Hg] Noemi Alie [employer] Work Phone: [facility] 02-16-2025 11:26-0400 Heart rate 90 /min Noemi Guillenitz [employer] Work Phone: [facility] 02-16-2025 11:26-0400 Systolic blood pressure 126 mm[Hg] Noemi Guillenitz [employer] Work Phone: [facility] 02-16-2025 11:22-0400 Body temperature 98.3 [degF] Noemiayush Dallas [employer] Work Phone: [facility] 02-16-2025 11:22-0400 Respiratory rate 18 /min Noemi Guillenitz [employer] Work Phone: [facility] 02-14-2025 11:16-0400 Diastolic blood pressure 81 mm[Hg] Noemi Guillenitz [employer] Work Phone: [facility] 02-14-2025 11:16-0400 Heart rate 96 /min Noemi Alie [employer] Work Phone: [facility] 02-14-2025 11:16-0400 Systolic blood pressure 131 mm[Hg] Noemi Guillenitz [employer] Work Phone: [facility] 02-14-2025 11:02-0400 SaO2% (BldA) [Mass fraction] 98 % Noemi Dallas [employer] Work Phone: [facility] 02-14-2025 11:00-0400 Body temperature 97.6 [degF] Noemi Dallas [employer] Work Phone: [facility] 02-14-2025 11:00-0400 Respiratory rate 18 /min Noemi Guillenitz [employer] Work Phone: [facility] 02-14-2025 10:53-0400 Body height 172.72 cm Noemi Dallas [employer] Work Phone: [facility] 02-14-2025 10:53-0400 Body mass index (BMI) [Ratio] 33.1 kg/m2 Noemi Dallas [employer] Work Phone: [facility] 02-14-2025 10:53-0400 Body weight 98.9 kg Noemi Dallas [employer] Work Phone: [facility] 02-10-2025 09:01-0400 Body mass index (BMI) [Ratio] 32.84 kg/m2 Chanda Santana MD Work Phone: [facility] 02-10-2025 09:01-0400 Body weight 97.98 kg Chanda Santana MD Work Phone: [facility] 02-10-2025 09:01-0400 Diastolic blood pressure 78 mm[Hg] Chanda Santana MD Work Phone: [facility] 02-10-2025 09:01-0400 Systolic blood pressure 118 mm[Hg] Chanda Santana MD Work Phone: [facility] 02-01-2025 13:44-0400 Body mass index (BMI) [Ratio] 32.93 kg/m2 Shade Alexander MD Work Phone: [facility] 02-01-2025 13:44-0400 Body weight 98.25 kg Shade Alexander MD Work Phone: [facility] 02-01-2025 13:44-0400 Diastolic blood pressure 88 mm[Hg] Shade Alexander MD Work Phone: [facility] 02-01-2025 13:44-0400 Systolic blood pressure 124 mm[Hg] Shade Alexander MD Work Phone: [facility] 01-27-2025 10:54-0400 Body mass index (BMI) [Ratio] 32.69 kg/m2 Lizzeth Ramos MD Work Phone: [facility] 01-27-2025 10:54-0400 Body weight 97.52 kg Lizzeth Ramos MD Work Phone: [facility] 01-27-2025 10:54-0400 Diastolic blood pressure 68 mm[Hg] Lizzeth Ramos MD Work Phone: [facility] 01-27-2025 10:54-0400 Systolic blood pressure 118 mm[Hg] Lizzeth Ramos MD Work Phone: [facility] 01-12-2025 12:06-0400 Diastolic blood pressure 75 mm[Hg] Prabha Plotts DISABILITY CASE MANAGER.CNM Work Phone: [facility] Comment on above: ANTHONY BP Average 01-12-2025 12:06-0400 Systolic blood pressure 123 mm[Hg] Prabha Plotts DISABILITY CASE MANAGER.CNM Work Phone: [facility] Comment on above: ANTHONY BP Average 01-12-2025 11:23-0400 Body mass index (BMI) [Ratio] 32.36 kg/m2 Prabha Plotts DISABILITY CASE MANAGER.CNM Work Phone: [facility] 01-12-2025 11:23-0400 Body weight 96.53 kg Prabha Plotts DISABILITY CASE MANAGER.CNM Work Phone: [facility] 01-04-2025 13:32-0400 Body mass index (BMI) [Ratio] 32.39 kg/m2 Pauline King DISABILITY CASE MANAGER.CNM Work Phone: [facility] 01-04-2025 13:32-0400 Body weight 96.62 kg Pauline King DISABILITY CASE MANAGER.CNM Work Phone: [facility] 01-04-2025 13:32-0400 Diastolic blood pressure 80 mm[Hg] Pauline King DISABILITY CASE MANAGER.CNM Work Phone: [facility] 01-04-2025 13:32-0400 Systolic blood pressure 120 mm[Hg] Pauline King APRN.CNM Work Phone: [facility] 12-21-2024 13:24-0400 Body mass index (BMI) [Ratio] 32.08 kg/m2 Lizzeth Ramos MD Work Phone: [facility] 12-21-2024 13:24-0400 Body weight 95.71 kg Lizzeth Ramos MD Work Phone: [facility] 12-21-2024 13:24-0400 Diastolic blood pressure 74 mm[Hg] Lizzeth Ramos MD Work Phone: [facility] 12-21-2024 13:24-0400 Systolic blood pressure 126 mm[Hg] Lizzeth Ramos MD Work Phone: [facility] 12-07-2024 13:08-0400 Body mass index (BMI) [Ratio] 31.47 kg/m2 Shade Alexander MD Work Phone: [facility] 12-07-2024 13:08-0400 Body weight 93.89 kg Shade Alexander MD Work Phone: [facility] 12-07-2024 13:08-0400 Diastolic blood pressure 78 mm[Hg] Shade Alexander MD Work Phone: [facility] 12-07-2024 13:08-0400 Systolic blood pressure 130 mm[Hg] Shade Alexander MD Work Phone: [facility] 12-07-2024 07:22-0400 Body mass index (BMI) [Ratio] 31.74 kg/m2 Pauline Norwood DISABILITY CASE MANAGER.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 Work Phone: [facility] 12-07-2024 07:22-0400 Body temperature 98.2 [degF] Pauline Norwood DISABILITY CASE MANAGER.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 Work Phone: [facility] 12-07-2024 07:22-0400 Body weight 94.7 kg Pauline Norwood DISABILITY CASE MANAGER.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 Work Phone: [facility] 12-07-2024 07:22-0400 Diastolic blood pressure 68 mm[Hg] Pauline Norwood DISABILITY CASE MANAGER.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 Work Phone: [facility] 12-07-2024 07:22-0400 Heart rate 100 /min Pauline Norwood DISABILITY CASE MANAGER.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 Work Phone: [facility] 12-07-2024 07:22-0400 Respiratory rate 18 /min Pauline Norwood DISABILITY CASE MANAGER.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 Work Phone: [facility] 12-07-2024 07:22-0400 SaO2% (BldA) [Mass fraction] 98 % Pauline Norwood DISABILITY CASE MANAGER.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 Work Phone: [facility] 12-07-2024 07:22-0400 Systolic blood pressure 120 mm[Hg] Pauline Norwood DISABILITY CASE 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.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 Work Phone: [facility] 11-16-2024 12:58-0400 Body height 172.7 cm Prabha Plotts DISABILITY CASE MANAGER.CNM Work Phone: [facility] 11-16-2024 12:58-0400 Body mass index (BMI) [Ratio] 32.23 kg/m2 Prabha Plotts DISABILITY CASE MANAGER.CNM Work Phone: [facility] 11-16-2024 12:58-0400 Body weight 96.16 kg Prabha Plotts DISABILITY CASE MANAGER.CNM Work Phone: [facility] 11-16-2024 12:58-0400 Diastolic blood pressure 70 mm[Hg] Prabha Plotts DISABILITY CASE MANAGER.CNM Work Phone: [facility] 11-16-2024 12:58-0400 Systolic blood pressure 118 mm[Hg] Prabha Plotts DISABILITY CASE MANAGER.CNM Work Phone: [facility] 10-20-2024 09:45-0400 Body mass index (BMI) [Ratio] 31.3 kg/m2 Noemi MENDEZC Work Phone: [facility] 10-20-2024 09:45-0400 Body weight 93.49 kg Noemiayush [place] [employer]TER[employer]C Work Phone: [facility] 10-20-2024 09:45-0400 Diastolic blood pressure 75 mm[Hg] Noemi Alie [employer] S[employer]TER-C Work Phone: [facility] 10-20-2024 09:45-0400 Systolic blood pressure 114 mm[Hg] Noemi Alie [employer] S[employer]TER-C Work Phone: [facility] 11-05-2023 15:24-0400 Body height 172.72 cm TIRE SORTER-C Noemi Alie TIRE SORTER Work Phone: [facility] 11-05-2023 15:23-0400 Body mass index (BMI) [Ratio] 30.9 kg/m2 [employer]C Noemi Alie TIRE SORTER Work Phone: [facility] 11-05-2023 15:23-0400 Body weight 92.19 kg TIRE SORTER-C Noemiayush [place] [employer] SORTER Work Phone: [facility] 11-05-2023 15:23-0400 Diastolic blood pressure 85 mm[Hg] TIRE SORTER-C Noemi Alie TIRE SORTER Work Phone: [facility] 11-05-2023 15:23-0400 Systolic blood pressure 128 mm[Hg] TIRE SORTER-C Noemi Alie TIRE SORTER Work Phone: [facility] 10-02-2023 15:10-0400 Body height 172.72 cm TIRE SORTER-C Noemi Alie TIRE SORTER Work Phone: [facility] 10-02-2023 15:10-0400 Diastolic blood pressure 82 mm[Hg] TIRE SORTER-C Noemi Alie TIRE SORTER Work Phone: [facility] 10-02-2023 15:10-0400 Systolic blood pressure 129 mm[Hg] TIRE SORTER-C Noemi Alie TIRE SORTER Work Phone: [facility] 10-02-2023 15:09-0400 Body mass index (BMI) [Ratio] 31.4 kg/m2 [employer]C Noemi Alie TIRE SORTER Work Phone: [facility] 10-02-2023 15:09-0400 Body weight 93.89 kg TIRE SORTER-C Noemi Alie TIRE SORTER Work Phone: [facility] 09-27-2023 12:50-0400 Body temperature 98.1 [degF] TIRE SORTER-C Noemiayush Dallas [employer]RE SORTER Work Phone: [facility] 09-27-2023 12:50-0400 Diastolic blood pressure 83 mm[Hg] TIRE SORTER-C Noemiayush [place] TIRE SORTER Work Phone: [facility] 09-27-2023 12:50-0400 Heart rate 85 /min TI[employer] S[employer]TER-C Noemiayush [place] TIRE SORTER Work Phone: [facility] 09-27-2023 12:50-0400 Respiratory rate 16 /min [employer]TER[employer]C Noemi Dallas [employer] SORTER Work Phone: [facility] 09-27-2023 12:50-0400 SaO2% (BldA) [Mass fraction] 97 % TI[employer] SORTER-C Noemiayush [place] TIRE SORTER Work Phone: [facility] 09-27-2023 12:50-0400 Systolic blood pressure 128 mm[Hg] TIRE SORTER-C Noemiayush [place] TIRE SORTER Work Phone: [facility] 09-24-2023 13:01-0400 Body height 172.72 cm TIRE SORTER-C Noemi Dallas TIRE SORTER Work Phone: [facility] 09-24-2023 13:01-0400 Body mass index (BMI) [Ratio] 34 kg/m2 TI[employer] S[employer]TER-C Noemiayush Dallsa TIRE SORTER Work Phone: [facility] 09-24-2023 13:01-0400 Body weight 101.7 kg TIRE SORTER-C Noemiayush [place] TIRE SORTER Work Phone: [facility] 09-21-2023 18:21-0400 Diastolic blood pressure 84 mm[Hg] TIRE SORTER-C Noemiayush Dallas TIRE SORTER Work Phone: [facility] 09-21-2023 18:21-0400 Heart rate 94 /min TI[employer] S[employer]TER-C Noemiayush [place] TIRE SORTER Work Phone: [facility] 09-21-2023 18:21-0400 SaO2% (BldA) [Mass fraction] 97 % TIRE SORTER-C Noemi Dallas TIRE SORTER Work Phone: [facility] 09-21-2023 18:21-0400 Systolic blood pressure 127 mm[Hg] TIRE SORTER-C Noemi Dallas TIRE SORTER Work Phone: [facility] 09-21-2023 14:55-0400 Body temperature 98.1 [degF] TIRE SORTER-C Noemi Dallas TIRE SORTER Work Phone: [facility] 09-21-2023 14:55-0400 Respiratory rate 16 /min [employer] S[employer]TER-C Noemi Dallas TIRE SORTER Work Phone: [facility] 09-21-2023 13:24-0400 Body height 172.72 cm TIRE SORTER-C Noemi Dallas TIRE SORTER Work Phone: [facility] 09-21-2023 13:22-0400 Body mass index (BMI) [Ratio] 34.4 kg/m2 [employer] S[employer]TER[employer]C Noemi Dallas [employer]RE SORTER Work Phone: [facility] 09-21-2023 13:22-0400 Body weight 102.56 kg TIRE SORTER-C Noemi Dallas TIRE SORTER Work Phone: [facility] 09-21-2023 13:22-0400 Diastolic blood pressure 85 mm[Hg] TIRE SORTER-C Noemi Dallas TIRE SORTER Work Phone: [facility] 09-21-2023 13:22-0400 Systolic blood pressure 130 mm[Hg] TIRE SORTER-C Noemi Dallas TIRE SORTER Work Phone: [facility] 09-14-2023 13:38-0500 Body height 172.72 cm TIRE SORTER-C Noemi Dallas TIRE SORTER Work Phone: [facility] 09-14-2023 13:38-0500 Body mass index (BMI) [Ratio] 34.4 kg/m2 [employer] S[employer]TER-C Noemi Dallas [employer]RE SORTER Work Phone: [facility] 09-14-2023 13:38-0500 Body weight 102.56 kg TIRE SORTER-C Noemi Alie TIRE SORTER Work Phone: [facility] 09-14-2023 13:38-0500 Diastolic blood pressure 85 mm[Hg] TIRE SORTER-C Noemi Alie TIRE SORTER Work Phone: [facility] 09-14-2023 13:38-0500 Systolic blood pressure 130 mm[Hg] TIRE SORTER-C Noemi Alie TIRE SORTER Work Phone: [facility] 09-08-2023 14:06-0500 Diastolic blood pressure 80 mm[Hg] TIRE SORTER-C Noemi Alie TIRE SORTER Work Phone: [facility] 09-08-2023 14:06-0500 Systolic blood pressure 119 mm[Hg] TIRE SORTER-C Noemi Alie TIRE SORTER Work Phone: [facility] 09-08-2023 13:48-0500 Body height 172.72 cm TIRE SORTER-C Noemi Alie TIRE SORTER Work Phone: [facility] 09-08-2023 13:48-0500 Body mass index (BMI) [Ratio] 34.2 kg/m2 TI[employer] S[employer]TER-C Noemi Alie TIRE SORTER Work Phone: [facility] 09-08-2023 13:48-0500 Body weight 102.05 kg TIRE SORTER-C Noemi Alie TIRE SORTER Work Phone: [facility] 08-31-2023 14:26-0500 Diastolic blood pressure 85 mm[Hg] TIRE SORTER-C Noemi Alie TIRE SORTER Work Phone: [facility] 08-31-2023 14:26-0500 Systolic blood pressure 131 mm[Hg] TIRE SORTER-C Noemi Alie TIRE SORTER Work Phone: [facility] 08-31-2023 14:25-0500 Body mass index (BMI) [Ratio] 33.7 kg/m2 [employer] S[employer]TER[employer]C Noemi Alie TIRE SORTER Work Phone: [facility] 08-31-2023 14:25-0500 Body weight 100.69 kg TIRE SORTER-C Noemi Alie TIRE SORTER Work Phone: [facility] 08-24-2023 08:25-0500 Body height 172.72 cm TIRE SORTER-C Noemi Alie TIRE SORTER Work Phone: [facility] 08-24-2023 08:25-0500 Body mass index (BMI) [Ratio] 34 kg/m2 TIRE SORTER-C Noemi Alie TIRE SORTER Work Phone: [facility] 08-24-2023 08:25-0500 Body weight 101.32 kg TIRE SORTER-C Noemi Alie TIRE SORTER Work Phone: [facility] 08-24-2023 08:25-0500 Diastolic blood pressure 82 mm[Hg] TIRE SORTER-C Noemi Alie TIRE SORTER Work Phone: [facility] 08-24-2023 08:25-0500 Systolic blood pressure 126 mm[Hg] TIRE SORTER-C Noemiayush [place] TIRE SORTER Work Phone: [facility] 08-17-2023 09:33-0500 Body mass index (BMI) [Ratio] 33.7 kg/m2 TIRE SORTER-C Noemi Alie TIRE SORTER Work Phone: [facility] 08-17-2023 09:33-0500 Body weight 100.75 kg TIRE SORTER-C Noemi Alie TIRE SORTER Work Phone: [facility] 08-17-2023 09:33-0500 Diastolic blood pressure 75 mm[Hg] TIRE SORTER-C Noemi Alie TIRE SORTER Work Phone: [facility] 08-17-2023 09:33-0500 Systolic blood pressure 122 mm[Hg] TIRE SORTER-C Noemi Alie TIRE SORTER Work Phone: [facility] 08-05-2023 11:24-0500 Body height 172.72 cm TIRE SORTER-C Noemi Alie TIRE SORTER Work Phone: [facility] 08-05-2023 11:24-0500 Body mass index (BMI) [Ratio] 33 kg/m2 TIRE SORTER-C Noemi Alie TIRE SORTER Work Phone: [facility] 08-05-2023 11:24-0500 Body weight 98.48 kg TIRE SORTER-C Noemiayush [place] TIRE SORTER Work Phone: [facility] 08-05-2023 11:24-0500 Diastolic blood pressure 86 mm[Hg] TIRE SORTER-C Noemiayush [place] TIRE SORTER Work Phone: [facility] 08-05-2023 11:24-0500 Systolic blood pressure 126 mm[Hg] TIRE SORTER-C Noemiayush [place] TIRE SORTER Work Phone: [facility] 08-03-2023 18:04-0500 Heart rate 84 /min TIRE SORTER-C Noemi [place] TIRE SORTER Work Phone: [facility] 08-03-2023 18:04-0500 SaO2% (BldA) [Mass fraction] 98 % TIRE SORTER-C Noemi [place] TIRE SORTER Work Phone: [facility] 08-03-2023 16:59-0500 Body mass index (BMI) [Ratio] 33.1 kg/m2 TIRE SORTER-C Noemi [place] TIRE SORTER Work Phone: [facility] 08-03-2023 16:59-0500 Body weight 98.79 kg TIRE SORTER-C Noemi [place] TIRE SORTER Work Phone: [facility] 08-03-2023 15:27-0500 Body temperature 98.4 [degF] TIRE SORTER-C Noemi [place] TIRE SORTER Work Phone: [facility] 08-03-2023 15:26-0500 Diastolic blood pressure 86 mm[Hg] TIRE SORTER-C Noemi [place] TIRE SORTER Work Phone: [facility] 08-03-2023 15:26-0500 Systolic blood pressure 120 mm[Hg] TIRE SORTER-C Noemiayush [place] TIRE SORTER Work Phone: [facility] 08-03-2023 13:37-0500 Body mass index (BMI) [Ratio] 33.1 kg/m2 TIRE SORTER-C Noemi [place] TIRE SORTER Work Phone: [facility] 08-03-2023 13:37-0500 Body weight 98.88 kg TIRE SORTER-C Noemi Alie TIRE SORTER Work Phone: [facility] 08-03-2023 13:37-0500 Diastolic blood pressure 70 mm[Hg] TIRE SORTER-C Noemi Alie TIRE SORTER Work Phone: [facility] 08-03-2023 13:37-0500 Systolic blood pressure 112 mm[Hg] TIRE SORTER-C Noemi Alie TIRE SORTER Work Phone: [facility] 07-20-2023 15:24-0500 Body mass index (BMI) [Ratio] 33.3 kg/m2 TIRE SORTER-C Noemi Alie TIRE SORTER Work Phone: [facility] 07-20-2023 15:24-0500 Body weight 99.45 kg TIRE SORTER-C Noemi Alie TIRE SORTER Work Phone: [facility] 07-20-2023 15:24-0500 Diastolic blood pressure 72 mm[Hg] TIRE SORTER-C Noemi Alie TIRE SORTER Work Phone: [facility] 07-20-2023 15:24-0500 Systolic blood pressure 112 mm[Hg] TIRE SORTER-C Noemi Alie TIRE SORTER Work Phone: [facility] 07-03-2023 13:03-0500 Body mass index (BMI) [Ratio] 32.5 kg/m2 TIRE SORTER-C Noemi Alie TIRE SORTER Work Phone: [facility] 07-03-2023 13:03-0500 Body weight 97.29 kg TIRE SORTER-C Noemi Alie TIRE SORTER Work Phone: [facility] 07-03-2023 13:03-0500 Diastolic blood pressure 72 mm[Hg] TIRE SORTER-C Noemi Alie TIRE SORTER Work Phone: [facility] 07-03-2023 13:03-0500 Systolic blood pressure 115 mm[Hg] TIRE SORTER-C Noemi Alie TIRE SORTER Work Phone: [facility] 06-03-2023 10:47-0500 Body mass index (BMI) [Ratio] 32.5 kg/m2 TIRE SORTER-C Noemi Alie TIRE SORTER Work Phone: [facility] 06-03-2023 10:47-0500 Body weight 97.29 kg TIRE SORTER-C Noemi Alie TIRE SORTER Work Phone: [facility] 06-03-2023 10:47-0500 Diastolic blood pressure 82 mm[Hg] TIRE SORTER-C Noemi Alie TIRE SORTER Work Phone: [facility] 06-03-2023 10:47-0500 Systolic blood pressure 138 mm[Hg] TIRE SORTER-C Noemi Alie TIRE SORTER Work Phone: [facility] 05-05-2023 12:44-0400 Body mass index (BMI) [Ratio] 31.8 kg/m2 TIRE SORTER-C Noemi Alie TIRE SORTER Work Phone: [facility] 05-05-2023 12:44-0400 Body weight 95.02 kg TIRE SORTER-C Noemi Alie TIRE SORTER Work Phone: [facility] 05-05-2023 12:44-0400 Diastolic blood pressure 82 mm[Hg] TIRE SORTER-C Noemi Alie TIRE SORTER Work Phone: [facility] 05-05-2023 12:44-0400 Systolic blood pressure 122 mm[Hg] TIRE SORTER-C Noemi Alie TIRE SORTER Work Phone: [facility] 04-24-2023 12:18-0400 Diastolic blood pressure 65 mm[Hg] TIRE SORTER-C Noemi Alie TIRE SORTER Work Phone: [facility] 04-24-2023 12:18-0400 Heart rate 74 /min TIRE SORTER-C Noemi Alie TIRE SORTER Work Phone: [facility] 04-24-2023 12:18-0400 Systolic blood pressure 109 mm[Hg] TIRE SORTER-C Noemi Alie TIRE SORTER Work Phone: [facility] 04-24-2023 11:10-0400 Body height 172.72 cm TIRE SORTER-C Noemi Alie TIRE SORTER Work Phone: [facility] 04-24-2023 11:10-0400 Body mass index (BMI) [Ratio] 31.7 kg/m2 TIRE SORTER-C Noemi Alie TIRE SORTER Work Phone: [facility] 04-24-2023 11:10-0400 Body temperature 97.4 [degF] TIRE SORTER-C Noemi Alie TIRE SORTER Work Phone: [facility] 04-24-2023 11:10-0400 Body weight 94.8 kg TIRE SORTER-C Noemi Alie TIRE SORTER Work Phone: [facility] 04-24-2023 11:10-0400 Respiratory rate 16 /min TIRE SORTER-C Noemiayush [place] TIRE SORTER Work Phone: [facility] 04-24-2023 11:10-0400 SaO2% (BldA) [Mass fraction] 97 % TIRE SORTER-C Noemi Guillenitz TIRE SORTER Work Phone: [facility] 04-03-2023 13:53-0400 Body mass index (BMI) [Ratio] 32 kg/m2 TIRE SORTER-C Noemi Alie TIRE SORTER Work Phone: [facility] 04-03-2023 13:53-0400 Body weight 95.48 kg TIRE SORTER-C Noemi Guillenitz TIRE SORTER Work Phone: [facility] 04-03-2023 13:53-0400 Diastolic blood pressure 78 mm[Hg] TIRE SORTER-C Noemi Guillenitz TIRE SORTER Work Phone: [facility] 04-03-2023 13:53-0400 Systolic blood pressure 130 mm[Hg] TIRE SORTER-C Noemi Alie TIRE SORTER Work Phone: [facility] 03-05-2023 09:24-0400 Body height 172.72 cm TIRE SORTER-C Noemi Alie TIRE SORTER Work Phone: [facility] 03-05-2023 09:22-0400 Body mass index (BMI) [Ratio] 32.4 kg/m2 TIRE SORTER-C Noemiayush [place] TIRE SORTER Work Phone: [facility] 03-05-2023 09:22-0400 Body weight 96.78 kg TIRE SORTER-C Noemi [place] TIRE SORTER Work Phone: [facility] 03-05-2023 09:22-0400 Diastolic blood pressure 95 mm[Hg] TIRE SORTER-C Noemi Alie TIRE SORTER Work Phone: [facility] 03-05-2023 09:22-0400 Systolic blood pressure 135 mm[Hg] TIRE SORTER-C Noemi Alie TIRE SORTER Work Phone: [facility] 12-18-2022 10:30-0400 Body height 172.72 cm TIRE SORTER-C Noemiayush [place] TIRE SORTER Work Phone: [facility] 12-18-2022 10:30-0400 Body mass index (BMI) [Ratio] 32.5 kg/m2 TIRE SORTER-C Noemiayush [place] TIRE SORTER Work Phone: [facility] 12-18-2022 10:30-0400 Body weight 97.23 kg TIRE SORTER-C Noemi [place] TIRE SORTER Work Phone: [facility] 12-18-2022 10:30-0400 Diastolic blood pressure 87 mm[Hg] TIRE SORTER-C Noemiayush [place] TIRE SORTER Work Phone: [facility] 12-18-2022 10:30-0400 Systolic blood pressure 136 mm[Hg] TIRE SORTER-C Noemiayush [place] TIRE SORTER Work Phone: [facility] 08-04-2022 09:50-0500 Body height 170.18 cm Jose Zackery Egand Work Phone: [facility] Work Phone: 08-04-2022 09:50-0500 Body mass index (BMI) [Ratio] 33.12 kg/m2 Jose L Delano Work Phone: [facility] Work Phone: 08-04-2022 09:50-0500 Body surface area Derived from formula 2.07 m2 Jose L Delano Work Phone: [facility] Work Phone: 08-04-2022 09:50-0500 Body weight 95.91 kg Jose Lewis Work Phone: [facility] Work Phone: 08-04-2022 09:50-0500 Diastolic blood pressure 80 mm[Hg] Jose Egand Work Phone: [facility] Work Phone: 08-04-2022 09:50-0500 Heart rate 95 /min Jose Egand Work Phone: [facility] Work Phone: 08-04-2022 09:50-0500 Systolic blood pressure 126 mm[Hg] Jose Egand Work Phone: [facility] Work Phone: 08-01-2022 19:00-0500 Diastolic blood pressure 95 mm[Hg] Text Entry Free [facility] 08-01-2022 19:00-0500 Heart rate 84 /min Text Entry Free [facility] 08-01-2022 19:00-0500 Respiratory rate 18 /min Text Entry Free [facility] 08-01-2022 19:00-0500 SaO2% (BldA) [Mass fraction] 97 % Text Entry Free [facility] 08-01-2022 19:00-0500 Systolic blood pressure 120 mm[Hg] Text Entry Free [facility] 08-01-2022 15:43-0500 Body height 172.7 cm Text Entry Free [facility] 08-01-2022 15:43-0500 Body temperature 97.7 [degF] Text Entry Free [facility] 08-01-2022 15:43-0500 Body weight 95.5 kg Text Entry Free [facility] 01-20-2022 08:38-0400 Body height 170.18 cm Jose Egand Work Phone: [facility] Work Phone: 01-20-2022 08:38-0400 Body mass index (BMI) [Ratio] 33.21 kg/m2 Jose Egand Work Phone: [facility] Work Phone: 01-20-2022 08:38-0400 Body surface area Derived from formula 2.07 m2 Jose Vizcarra Newton Work Phone: [facility] Work Phone: 01-20-2022 08:38-0400 Body weight 96.19 kg Jose Egand Work Phone: [facility] Work Phone: 01-20-2022 08:38-0400 Diastolic blood pressure 84 mm[Hg] Jose Egand Work Phone: [facility] Work Phone: 01-20-2022 08:38-0400 Heart rate 79 /min Jose Egand Work Phone: [facility] Work Phone: 01-20-2022 08:38-0400 Systolic blood pressure 130 mm[Hg] Jose Egand Work Phone: [facility] Work Phone: 11-26-2021 09:42-0400 Body height 170.18 cm Jose Egand Work Phone: [facility] Work Phone: 11-26-2021 09:42-0400 Body mass index (BMI) [Ratio] 33.07 kg/m2 Jose Egand Work Phone: [facility] Work Phone: 11-26-2021 09:42-0400 Body surface area Derived from formula 2.07 m2 Jose Egand Work Phone: [facility] Work Phone: 11-26-2021 09:42-0400 Body weight 95.77 kg Jose Egand Work Phone: [facility] Work Phone: 11-26-2021 09:42-0400 Diastolic blood pressure 76 mm[Hg] Jose Lewis Work Phone: [facility] Work Phone: 11-26-2021 09:42-0400 Systolic blood pressure 126 mm[Hg] Jose Lewis Work Phone: [facility] Work Phone: 06-17-2021 11:02-0500 Body height 170.18 cm Noemi [place] Work Phone: [address] Work Phone: 06-17-2021 11:02-0500 Body mass index (BMI) [Ratio] 32.49 kg/m2 Noemi [place] Work Phone: [address] Work Phone: 06-17-2021 11:02-0500 Body surface area Derived from formula 2.05 m2 Noemi [place] Work Phone: [address] Work Phone: 06-17-2021 11:02-0500 Body temperature 97.1 [degF] Noemi Dallas Work Phone: [address] Work Phone: 06-17-2021 11:02-0500 Body weight 94.1 kg Noemi Dallas Work Phone: [place] [address] [place] Work Phone: 06-17-2021 11:02-0500 Diastolic blood pressure 80 mm[Hg] Noemi L Alie Work Phone: [place] [address] [place] Work Phone: 06-17-2021 11:02-0500 Systolic blood pressure 120 mm[Hg] Noemi L Alie Work Phone: [address] Work Phone: 04-23-2021 09:54-0400 Body height 170.18 cm Noemi Dallas Work Phone: [address] Work Phone: 04-23-2021 09:54-0400 Body mass index (BMI) [Ratio] 32.56 kg/m2 Noemi Dallas Work Phone: [address] Work Phone: 04-23-2021 09:54-0400 Body surface area Derived from formula 2.06 m2 Noemi Dallas Work Phone: [address] Work Phone: 04-23-2021 09:54-0400 Body temperature 98.2 [degF] Noemi Dallas Work Phone: [address] Work Phone: 04-23-2021 09:54-0400 Body weight 94.3 kg Noemi Dallas Work Phone: [address] Work Phone: 04-23-2021 09:54-0400 Diastolic blood pressure 78 mm[Hg] Noemi L Alie Work Phone: [address] Work Phone: 04-23-2021 09:54-0400 Systolic blood pressure 118 mm[Hg] Noemi L Alie Work Phone: [address] Work Phone: 02-15-2021 15:26-0400 Body height 170.18 cm Noemi L Alie Work Phone: [facility] Work Phone: 02-15-2021 15:26-0400 Body mass index (BMI) [Ratio] 32.89 kg/m2 Noemi L Alie Work Phone: [facility] Work Phone: 02-15-2021 15:26-0400 Body surface area Derived from formula 2.06 m2 Noemi Dallas Work Phone: [facility] Work Phone: 02-15-2021 15:26-0400 Body weight 95.26 kg Noemi Dallas Work Phone: [facility] Work Phone: 02-15-2021 15:26-0400 Diastolic blood pressure 80 mm[Hg] Noemi L Alie Work Phone: [facility] Work Phone: 02-15-2021 15:26-0400 Heart rate 72 /min Noemi Dallas Work Phone: [facility] Work Phone: 02-15-2021 15:26-0400 Systolic blood pressure 122 mm[Hg] Noemi L Alie Work Phone: [facility] Work Phone: 01-18-2021 10:08-0400 Body height 170.18 cm Noemi Dallas Work Phone: [facility] Work Phone: 01-18-2021 10:08-0400 Body mass index (BMI) [Ratio] 32.65 kg/m2 Noemi Dallas Work Phone: [facility] Work Phone: 01-18-2021 10:08-0400 Body surface area Derived from formula 2.06 m2 Noemi Dallas Work Phone: [facility] Work Phone: 01-18-2021 10:08-0400 Body weight 94.55 kg Noemi L Alie Work Phone: [facility] Work Phone: 01-18-2021 10:08-0400 Diastolic blood pressure 80 mm[Hg] Noemi Dallas Work Phone: [facility] Work Phone: 01-18-2021 10:08-0400 Heart rate 76 /min Noemi Dallas Work Phone: [facility] Work Phone: 01-18-2021 10:08-0400 Systolic blood pressure 118 mm[Hg] Noemi Dallas Work Phone: [facility] Work Phone: 12-18-2020 09:24-0400 Body height 172.7 cm Erma Raedy DO Work Phone: [facility] 12-18-2020 09:24-0400 Body mass index (BMI) [Ratio] 31.6 kg/m2 Erma Raedy DO Work Phone: [facility] 12-18-2020 09:24-0400 Body temperature 98.29 [degF] Erma Raedy DO Work Phone: [facility] [employer] [facility] 12-18-2020 09:24-0400 Body weight 94.26 kg Erma Raedy DO Work Phone: [facility] [employer] [facility] 12-18-2020 09:24-0400 Diastolic blood pressure 90 mm[Hg] Erma Raedy DO Work Phone: [facility] 12-18-2020 09:24-0400 Heart rate 75 /min Erma Raedy DO Work Phone: [employer] [facility] 12-18-2020 09:24-0400 Respiratory rate 16 /min Erma Raedy DO Work Phone: [facility] 12-18-2020 09:24-0400 SaO2% (BldA) [Mass fraction] 98 % Erma Raedy DO Work Phone: [facility] 12-18-2020 09:24-0400 Systolic blood pressure 135 mm[Hg] Erma Raedy DO Work Phone: [facility] [employer] [facility] 11-02-2020 09:47-0400 Body height 172.7 cm Erma Raedy DO Work Phone: [facility] [employer] [facility] 11-02-2020 09:47-0400 Body mass index (BMI) [Ratio] 31.79 kg/m2 Erma Raedy DO Work Phone: [facility] [employer] [facility] 11-02-2020 09:47-0400 Body temperature 98.6 [degF] Erma Raedy DO Work Phone: [facility] 11-02-2020 09:47-0400 Body weight 94.85 kg Erma Raedy DO Work Phone: [facility] [employer] [facility] 11-02-2020 09:47-0400 Diastolic blood pressure 90 mm[Hg] Erma Raedy DO Work Phone: [facility] [employer] [facility] 11-02-2020 09:47-0400 Heart rate 86 /min Erma Raedy DO Work Phone: [facility] [employer] [facility] 11-02-2020 09:47-0400 Respiratory rate 16 /min Erma Raedy DO Work Phone: [facility] [employer] [facility] 11-02-2020 09:47-0400 SaO2% (BldA) [Mass fraction] 100 % Erma Raedy DO Work Phone: [facility] 11-02-2020 09:47-0400 Systolic blood pressure 135 mm[Hg] Erma Raedy DO Work Phone: [facility] Encounters Encounter Date Encounter Type Care Provider Facility Start: 02-16-2025 End: 02-16-2025 ambulatory Noemi Dallas TIRE SORTEREmiC Work Phone: -[facility] Start: 02-16-2025 End: 02-16-[address] Lizzeth Ramos MD -[facility] Work Phone: Start: 02-14-2025 End: 02-14-[address] Shade Alxeander MD -[facility] Work Phone: Start: 02-14-2025 End: 02-14-2025 ambulatory Noemi Dallas TIRE SORTER-C Work Phone: -[facility] Start: 02-10-2025 End: 02-10-2025 Patient encounter procedure Chanda Santana MD Work Phone: OB/Gynecology Comment on above: Encounter for superv ision of high risk multigravida of advanced maternal age, antepartum (HCC) (Primary Dx); History of vacuum extraction assisted delivery; Multigravida of advanced maternal age in third trimester ([facility]); Uterine size-date discrepancy, third trimester ([facility]); 38 weeks gestation of ([facility]) Start: 02-10-2025 End: 02-10-2025 ambulatory CHANDA SANTANA Facility:[facility] Start: 02-09-2025 End: 02-09-2025 ambulatory [facility] Start: 02-09-2025 End: 02-09-2025 [facility] Population Health Na vigation Outreach ( to PCP/OB/) Start: 02-01-2025 End: 02-01-2025 Patient encounter procedure Shade Alexander MD Work Phone: OB/Gynecology Comment on above: 36 weeks gestation o f ([facility]) (Primary Dx); Encounter for supervision of high risk multigravida of advanced maternal age, antepartum ([facility]); Decreased movements in third trimester, single or unspecified fetus ([facility]) Start: 02-01-2025 End: 02-01-2025 ambulatory SHADE ALEXANDER Facility:[facility] Start: 01-27-2025 End: 01-27-2025 Patient encounter procedure Lizzeth Ramos MD Work Phone: OB/Gynecology Comment on above: Encounter for superv ision of high risk multigravida of advanced maternal age, antepartum (HCC) (Primary Dx); History of vacuum extraction assisted delivery; Multigravida of advanced maternal age in third trimester (HCC); Uterine size-date discrepancy, third trimester (HCC); Major depressive disorder with current active episode, unspecified depression episode severity, unspecified whether recurrent; 36 weeks gestation of (HCC) Start: 01-27-2025 End: 01-27-2025 ambulatory LIZZETH RAMOS Facility:[facility] Start: 01-12-2025 End: 01-12-2025 Patient encounter procedure Prabha Quevedo APRN.CNM Work Phone: OB/Gynecology Comment on above: 34 weeks gestation o f (HCC) (Primary Dx); Encounter for supervision of high risk multigravida of advanced maternal age, antepartum (HCC); History of vacuum extraction assisted delivery; Multigravida of advanced maternal age in third trimester (HCC) Encounter for antena myron screening for malformation using ultrasound ([facility]) (Primary Dx); Encounter for supervision of high risk multigravida of advanced maternal age, antepartum (HCC); Uterine size-date discrepancy, third trimester (HCC); 34 weeks gestation of (HCC) Start: 01-12-2025 End: 01-12-[address] [facility] [place] PAULINE KING Facility:[facility] Start: 01-04-2025 End: 01-04-2025 Patient encounter procedure Pauline King APRN.SUZANNE Work Phone: OB/Gynecology Comment on above: Encounter for superv ision of high risk multigravida of advanced maternal age, antepartum (HCC) (Primary Dx); 32 weeks gestation of (HCC); History of vacuum extraction assisted delivery; Major depressive disorder with current active episode, unspecified depression episode severity, unspecified whether recurrent; Uterine size-date discrepancy, third trimester (HCC); Multigravida of advanced maternal age in second trimester ([facility]) Start: 01-04-2025 End: 01-04-2025 ambulatory PAULINE SHANNON Facility:[facility] Start: 12-21-2024 End: 12-21-2024 Patient encounter procedure Lizzeth Ramos MD Work Phone: OB/Gynecology Comment on above: Encounter for superv ision of high risk multigravida of advanced maternal age, antepartum (HCC) (Primary Dx); History of vacuum extraction assisted delivery; 30 weeks gestation of (HCC); Major depressive disorder with current active episode, unspecified depression episode severity, unspecified whether recurrent Start: 12-21-2024 End: 12-21-2024 ambulatory LIZZETH KRUGERWIN Facility:[facility] Start: 12-12-2024 End: 02-11-2025 Follow-up encounter Shade Alexander MD Work Phone: OB/Gynecology Start: 12-09-2024 End: 12-09-2024 ambulatory PRABHA QUEVEDO Facility:[facility] Start: 12-08-2024 End: 02-07-2025 Follow-up encounter Prabha Quevedo DISABILITY CASE MANAGER.CNM Work Phone: OB/Gynecology Start: 12-07-2024 End: 12-07-2024 Patient encounter procedure Shade Alexander MD Work Phone: OB/Gynecology Comment on above: Encounter for superv ision of high risk multigravida of advanced maternal age, antepartum (HCC) (Primary Dx); Need for vaccination; 28 weeks gestation of (HCC) Start: 12-07-2024 End: 12-07-2024 ambulatory PRABHA QUEVEDO Facility:[facility] Start: 12-07-2024 End: 12-07-2024 Patient encounter procedure Pauline Norwood APRN.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 Work Phone: [facility] Comment on above: 28 weeks gestation o f (HCC) (Primary Dx); Otalgia, right; Acute otitis media, right Start: 12-07-2024 End: 12-07-2024 ambulatory PAULINE NORWOOD Facility:[facility] Start: 12-01-2024 End: 12-01-2024 ambulatory [facility] Start: 11-16-2024 End: 11-16-2024 Patient encounter procedure Prabha Quevedo DISABILITY CASE MANAGER.CNM Work Phone: OB/Gynecology Comment on above: History of vacuum ex traction assisted delivery (Primary Dx); Low lying placenta nos or without hemorrhage, second trimester ([facility]); Obesity affecting in second trimester, unspecified obesity type ([facility]); Multigravida of advanced maternal age in second trimester ([facility]); Rh negative state in antepartum period ([facility]); Major depressive disorder with current active episode, unspecified depression episode severity, unspecified whether recurrent; Screening for diabetes mellitus; Encounter for supervision of high risk multigravida of advanced maternal age, antepartum ([facility]); History of infection; with care elsewhere in second trimester ([facility]) Start: 11-16-2024 End: 11-16-2024 ambulatory PRABHA QUEVEDO Facility:[facility] Start: 10-20-2024 End: 10-20-[address] Lizzeth Abarca DO [facility] Work Phone: Start: 10-20-2024 End: 10-20-2024 ambulatory Noemi [place] NP [place] [place]: 09-29-2024 End: 09-29-2024 ambulatory HARLEY D [facility] Start: 09-21-2024 End: 09-21-2024 ambulatory Noemi [place] NP [place]: 08-24-2024 End: 08-24-2024 ambulatory Ivette Cornell [place] Start: 07-28-2024 End: 07-28-2024 ambulatory Jesus Marinelli [place] [place] Start: 07-28-2024 End: 07-28-2024 ambulatory Noemi Dallas NP Facility:[facility] Start: 07-15-2024 ambulatory Noemi Dallas NP [place] Start: 07-08-2024 End: 07-08-2024 ambulatory Ivette Cornell Facility:[facility] Start: 11-05-2023 End: 11-05-2023 ambulatory TIRE SORTER-C Noemi Dallas NP Work Phone: [facility] Work Phone: Start: 11-05-2023 End: 11-05-2023 Patient encounter procedure TIRE SORTER-C Noemi Dallas NP Work Phone: [facility], Specimen Work Phone: Start: 11-05-2023 End: 11-05-2023 Patient encounter procedure TIRE SORTER-C Noemi Alie TIRE SORTER Work Phone: [facility] Work Phone: Start: 10-02-2023 End: 10-02-2023 ambulatory TIRE SORTER-C Noemi Alie TIRE SORTER Work Phone: [facility] Work Phone: Start: 10-02-2023 End: 10-02-2023 Patient encounter procedure TIRE SORTER-C Noemi Alie TIRE SORTER Work Phone: [facility] Work Phone: Start: 10-02-2023 End: 10-02-2023 Patient encounter procedure TIRE SORTER-C Noemi Alie TIRE SORTER Work Phone: [facility] Work Phone: Start: 09-30-2023 End: 09-30-2023 Patient encounter procedure TIRE SORTER-C Noemi Alie TIRE SORTER Work Phone: [facility] Work Phone: Start: 09-27-2023 End: 09-27-2023 Patient encounter procedure TIRE SORTER-C Noemi Alie TIRE SORTER Work Phone: [facility] Work Phone: Start: 09-27-2023 Non-patient / Non-visit TIRE SORTER-C Rina Dallas TIRE SORTER Work Phone: [facility] Start: 09-26-2023 Non-patient / Non-visit TIRE SORTER-C K chema Dallas TIRE SORTER Work Phone: [facility] Start: 09-25-2023 Non-patient / Non-visit TIRE SORTER-C K chema Dallas TIRE SORTER Work Phone: [facility] Start: 09-24-2023 Non-patient / Non-visit TIRE SORTER-C K chema Dallas TIRE SORTER Work Phone: [facility] Start: 09-24-2023 End: 09-27-2023 Evaluation and management of inpatient TIRE SORTER-C Noemi Dallas TIRE SORTER Work Phone: [facility] Work Phone: Start: 09-21-2023 Non-patient / Non-visit TIRE SORTER-C Rina Dallas TIRE SORTER Work Phone: [facility] Start: 09-21-2023 End: 09-21-2023 ambulatory TIRE SORTER-C Noemi Dallas TIRE SORTER Work Phone: [facility] Work Phone: Start: 09-21-2023 End: 09-21-2023 Patient encounter procedure TIRE SORTER-C Noemi Dallas TIRE SORTER Work Phone: [facility], Outpatients Work Phone: Start: 09-21-2023 End: 09-21-2023 Patient encounter procedure TIRE SORTER-C Noemi Dallas TIRE SORTER Work Phone: [facility] Work Phone: Start: 09-14-2023 End: 09-14-2023 ambulatory TIRE SORTER-C Noemi Alie TIRE SORTER Work Phone: [facility] Work Phone: Start: 09-14-2023 End: 09-14-2023 Patient encounter procedure TIRE SORTER-C Nomei Alie TIRE SORTER Work Phone: [facility] Work Phone: Start: 09-08-2023 End: 09-08-2023 ambulatory TIRE SORTER-C Noemi Dallas TIRE SORTER Work Phone: [facility] Work Phone: Start: 09-08-2023 End: 09-08-2023 Patient encounter procedure TIRE SORTER-C Noemi Dallas TIRE SORTER Work Phone: [facility], Specimen Work Phone: Start: 09-08-2023 End: 09-08-2023 Patient encounter procedure TIRE SORTER-Xiomara Dallas TIRE SORTER Work Phone: [facility] Work Phone: Start: 08-31-2023 End: 08-31-2023 Patient encounter procedure TIRE SORTER-Xiomara Dallas TIRE SORTER Work Phone: [facility] Work Phone: Start: 08-24-2023 End: 08-24-2023 ambulatory TIRE SORTER-C Noemi Dallas TIRE SORTER Work Phone: [facility] Work Phone: Start: 08-24-2023 End: 08-24-2023 Patient encounter procedure TIRE SORTER-Xiomara Dallas TIRE SORTER Work Phone: [facility] Work Phone: Start: 08-17-2023 End: 08-17-2023 Patient encounter procedure TIRE SORTER-Xiomara Dallas TIRE SORTER Work Phone: [facility] Work Phone: Start: 08-05-2023 End: 08-05-2023 ambulatory TIRE SORTER-C Noemi Dallas TIRE SORTER Work Phone: [facility] Work Phone: Start: 08-05-2023 End: 08-05-2023 Patient encounter procedure TIRE SORTER-Xiomara Dallas TIRE SORTER Work Phone: [facility] Work Phone: Start: 08-03-2023 Non-patient / Non-visit TIRE SORTER-Xiomara Dallas TIRE SORTER Work Phone: [facility] Start: 08-03-2023 End: 08-03-2023 Patient encounter procedure TIRE SORTER-Xiomara Dallas TIRE SORTER Work Phone: [facility], Outpatients Work Phone: Start: 08-03-2023 End: 08-03-2023 Patient encounter procedure TIRE SORTER-C Noemi Dallas TIRE SORTER Work Phone: [facility] Work Phone: Start: 07-20-2023 End: 07-20-2023 Patient encounter procedure TIRE SORTER-C Noemi Dallas TIRE SORTER Work Phone: [facility] Work Phone: Start: 07-03-2023 End: 07-03-2023 Patient encounter procedure TIRE SORTER-C Noemi Dallas TIRE SORTER Work Phone: [facility] Work Phone: Start: 07-02-2023 End: 07-02-2023 Patient encounter procedure TIRE SORTER-C Noemi Dallas TIRE SORTER Work Phone: [facility], Pavilion Start: 06-03-2023 End: 06-03-2023 Patient encounter procedure TIRE SORTER-C Noemi Dallas TIRE SORTER Work Phone: [facility] Work Phone: Start: 05-05-2023 End: 05-05-2023 Patient encounter procedure TIRE SORTER-C Noemi Dallas TIRE SORTER Work Phone: [facility] Work Phone: Start: 04-24-2023 End: 04-24-2023 ambulatory TIRE SORTER-C Noemi Dallas TIRE SORTER Work Phone: [facility] Work Phone: Start: 04-24-2023 End: 04-24-2023 Patient encounter procedure TIRE SORTER-C Noemi Dallas TIRE SORTER Work Phone: [facility]Medical Out Work Phone: Start: 04-03-2023 End: 04-03-2023 Patient encounter procedure TIRE SORTER-C Noemi Dallas TIRE SORTER Work Phone: [facility] Work Phone: Start: 03-30-2023 End: 03-30-2023 ambulatory TIRE SORTER-C Noemi Alie TIRE SORTER Work Phone: [facility] Work Phone: Start: 03-30-2023 End: 03-30-2023 Patient encounter procedure TIRE SORTER-C Noemi Dallas TIRE SORTER [facility] Start: 03-05-2023 End: 03-05-2023 ambulatory TIRE SORTER-C Noemi Dallas TIRE SORTER Work Phone: [facility] Work Phone: Start: 03-05-2023 End: 03-05-2023 Patient encounter procedure TIRE SORTER-C Noemi Dallas TIRE SORTER [facility] Work Phone: Start: 03-05-2023 End: 03-05-2023 Patient encounter procedure TIRE SORTER-C Noemi Alie TIRE SORTER Work Phone: [facility] Work Phone: Start: 02-26-2023 End: 02-26-2023 ambulatory TIRE SORTER-C Noemi Dallas TIRE SORTER Work Phone: [facility] Work Phone: Start: 02-26-2023 End: 02-26-2023 Patient encounter procedure TIRE SORTER-C Noemi Alie TIRE SORTER [facility] Start: 02-24-2023 End: 02-24-2023 Patient encounter procedure TIRE SORTER-C Noemi Alie TIRE SORTER [facility] Start: 02-18-2023 End: 02-18-2023 ambulatory TIRE SORTER-C Noemi Dallas TIRE SORTER Work Phone: [facility] Work Phone: Start: 02-18-2023 End: 02-18-2023 Patient encounter procedure TIRE SORTER-C Noemi Dallas TIRE SORTER Work Phone: [facility]-Ultrasound, [facility] Work Phone: Start: 02-11-2023 End: 02-11-2023 ambulatory TIRE SORTER-C Noemi Alie TIRE SORTER Work Phone: [facility] Work Phone: Start: 02-11-2023 End: 02-11-2023 Patient encounter procedure TIRE SORTER-C Noemi Alie TIRE SORTER Work Phone: [facility], [facility] Work Phone: Start: 02-04-2023 End: 02-04-2023 ambulatory TIRE SORTER-C Noemi Alie TIRE SORTER Work Phone: [facility] Work Phone: Start: 02-04-2023 End: 02-04-2023 Patient encounter procedure TIRE SORTER-C Noemi Alie TIRE SORTER Work Phone: [facility], [facility] Start: 02-02-2023 End: 02-02-2023 Patient encounter procedure TIRE SORTER-C Noemi Alie TIRE SORTER [facility] Start: 12-24-2022 End: 12-24-2022 ambulatory TIRE SORTER-C Noemi Dallas TIRE SORTER Work Phone: [facility] Work Phone: Start: 12-24-2022 End: 12-24-2022 Patient encounter procedure TIRE SORTER-C Noemi Dallas TIRE SORTER Work Phone: [facility]Ultrasound, [facility] Start: 12-18-2022 End: 12-18-2022 Patient encounter procedure TIRE SORTER-C Noemi Dallas TIRE SORTER Work Phone: [facility] Start: 08-04-2022 Office outpatient vi sit 15 minutes Jose Lewis Work Phone: [facility] [employer] Work Phone: Start: 08-01-2022 End: 08-01-2022 Emergency department patient visit Bryce Jaquez [facility] Emergency 04 Start: 01-20-2022 Office outpatient vi sit 15 minutes Jose Lewis Work Phone: [facility] Work Phone: Start: 11-27-2021 Chart Update Jose Lewis Work Phone: [facility] Work Phone: Start: 11-26-2021 Office outpatient vi sit 15 minutes Jose Lewis Work Phone: [facility] Work Phone: Start: 06-17-2021 Patient encounter procedure Noemi Dallas Work Phone: [facility] Work Phone: Start: 05-25-2021 Chart Update Noemi Dallas Work Phone: [facility] Work Phone: Start: 04-23-2021 Periodic preventive med est patient 18-39 yrs Noemi Dallas Work Phone: [employer] Work Phone: Start: 02-15-2021 Office outpatient vi sit 10 minutes Noemi Dallas Work Phone: [facility] Work Phone: Start: 01-18-2021 Office outpatient vi sit 15 minutes Noemi Dallas Work Phone: [facility] Work Phone: Start: 12-18-2020 End: 12-18-2020 Office outpatient visit 15 minutes Erma Haskins DO Work Phone: [facility] Comment on above: Temporomandibular di sorder (Primary Dx); Occipital neuralgia of right side; Intractable migraine with aura with status migrainosus Start: 11-02-2020 End: 11-02-2020 Office outpatient new 30 minutes Erma Haskins DO Work Phone: [facility] [place] Comment on above: Temporomandibular di sorder (Primary Dx); Intractable migraine with aura with status migrainosus Start: 12-28-2017 End: 12-29-2017 Ambulatory Cori Hall Facility:[facility] Start: 11-18-2017 Ambulatory GUEVARAAKASH HASTINGS [facility] Start: 11-18-2017 End: 11-18-2017 Ambulatory Cori Hall Facility:[facility] Start: 11-17-2017 End: 11-18-2017 Ambulatory Cori Hall Facility:[facility] Start: 11-09-2017 End: 11-10-2017 Ambulatory Cori Hall Facility:[facility] Start: 11-02-2017 End: 11-03-2017 Ambulatory Clarice Jeffries Facility:[facility] Start: 10-27-2017 End: 10-27-2017 Ambulatory Clarice Jeffries Facility:[facility] Start: 10-19-2017 End: 10-20-2017 Ambulatory Cori Hall Facility:[facility] Start: 10-19-2017 End: 10-20-2017 Ambulatory Cori Hall Facility:[facility] Start: 10-15-2017 End: 10-16-2017 Ambulatory Clarice Jeffries Facility:[facility] Start: 10-14-2017 End: 10-15-2017 Ambulatory Clarice Jeffries Facility:[facility] Start: 10-11-2017 End: 10-12-2017 Emergency department patient visit Clarice Jeffries Facility:[facility] Start: 09-24-2017 End: 09-25-2017 Ambulatory Clarice Jeffreis Facility:[facility] Start: 09-17-2017 End: 09-18-2017 Ambulatory Clarice Jeffries Facility:[facility] Start: 09-11-2017 End: 09-12-2017 Ambulatory Clarice Jeffries Facility:[facility] Start: 09-11-2017 End: 09-12-2017 Ambulatory Clarice Jeffries Facility:[facility] Start: 02-26-2017 End: 02-27-2017 Ambulatory Cori Arellanosimran Facility:[facility] Start: 01-19-2017 End: 01-20-2017 Ambulatory Cori Hall Facility:[facility] Start: 01-19-2017 End: 01-20-2017 Ambulatory Cori Hall Facility:[facility] Cancer cervix - scre ening done Noemi Dallas Work Phone: [facility] Work Phone: Comment on above: November 2017; Encounter for gynecological examination (general) (routine) without abnormal findings Noemi Dallas Work Phone: [place] [phone] [employer] Work Phone: Comment on above: November 2017; 04/23/2021; COTEST N Aimee 2018; Patient encounter procedure Noemi Dallas Work Phone: [place] [phone] [employer] Work Phone: Procedures Date Procedure Procedure Detail Performing Clinician Start: 02-14-2025 Measurement of pH in vaginal fluid specimen using nitrazine yellow for detection of rupture of amniotic membrane Noemi Dallas TIRE SORTER-C Work Phone: Comment on above: Amniotic fluid not p resent indicates No Rupture of FetalMembranes at time of specimen collection. Start: 02-10-2025 Urnls dip stick/tabl et rgnt non-auto w/o micrscp Chanda Santana MD Work Phone: Start: 02-01-2025 Urnls dip stick/tabl et rgnt non-auto w/o micrscp Shade Alexander MD Work Phone: Start: 01-27-2025 Urnls dip stick/tabl et rgnt non-auto w/o micrscp Lizzeth Ramos MD Work Phone: Start: 01-12-2025 Us preg uterus after 1st trimest 07/13 gestation Pauline King APRN.CNM Work Phone: Start: 12-07-2024 Antibody screen PAULINE KING Comment on above: Order Comment: Speci men Type: BLOOD SPECIMEN Ordering Facility: [facility] Address: [address] [place] [address] Performed By: #### T SPN, ABORH #### CC MAIN BLOOD BANK CLIA [id number] [facility] [id number] STATES [facility] Start: 07-28-2024 Antibody screen Jesus Prasad kelly Comment on above: Performed By: #### L [id number], [id number], [id number], [id number], [id number], BTS, BtABORH, [id number], [id number], [id number] #### [facility] [address] [place], [place], [id number] Start: 09-21-2023 Ultrasonography for biophysical profile without non-stress testing TIRE SORTER-Xiomara Dallas TIRE SORTER Work Phone: Start: 09-08-2023 Group B Streptococcu s Culture TIRE SORTER-Xiomara Dallas TIRE SORTER Work Phone: Start: 08-03-2023 Ultrasonography for biophysical profile without non-stress testing TIRE SORTER-Xiomara Dallas TIRE SORTER Work Phone: Start: 03-05-2023 Urine culture TIRE SORTER-C Alannah Dallas TIRE SORTER Work Phone: Start: 02-18-2023 Transvaginal obstetr ic ultrasonography TIRE SORTER-Xiomara Dallas TIRE SORTER Work Phone: Start: 02-11-2023 Transvaginal obstetr ic ultrasonography TIRE SORTER-Xiomara Dallas TIRE SORTER Work Phone: Start: 12-24-2022 Pelvic echography TIRE SORTER-Xiomara Dallas TIRE SORTER Work Phone: Start: 08-01-2022 End: 08-01-2022 EKG impression Bryce Somple Insertion of intraut erine contraceptive device Noemi Dallas Work Phone: Comment on above: 11/2017; Repair of middle ear Noemi Vizcarra Alie Work Phone: Tonsillectomy and adenoidectomy Noemi Dallas Work Phone: Comment on above: 2004; Plan of Treatment Date Care Activity Detail Author Start: 10-22-2063 RSV Vaccine (1 - 1-d ose 75+ series) RSV Vaccine (1 - 1-dose 75+ series) [facility] Start: 12-07-2034 Urine microalbumin profile DTaP,Tdap,Td Vaccine (10 - Td or Tdap) [facility] Start: 07-20-2033 Urine microalbumin profile DTaP,Tdap,Td Vaccine (9 - Td or Tdap) [facility] Start: 03-13-2025 Influenza vaccination Influenza Vacc ine (#1) [facility] Start: 02-16-2025 Nonstress test [facility] Start: 02-16-2025 Obstetric monitoring [facility] Start: 02-16-2025 Vital signs measurements [facility] Start: 02-16-2025 [facility] Start: 02-16-2025 End: 02-16-2025 Patient encounter procedure 02/16/2025 10:00 AM EDT Routine Office Visit OB/Gynecology [address] [place] [address] Lizzeth Ramos MD [address] [place] [address] OB OB/Gynecology Comment on above: OB Start: 02-16-2025 Patient discharge [facility] Start: 02-14-2025 Nonstress test [facility] Start: 02-14-2025 Obstetric monitoring [facility] Start: 02-14-2025 [facility] Start: 02-14-2025 Vital signs measurements [facility] Start: 02-14-2025 Patient discharge [facility] Start: 02-10-2025 End: 02-10-2025 Patient encounter procedure 02/10/2025 9:10 AM EDT Routine Office Visit OB/Gynecology [address] [place] [address] Chanda Huffman MD [address] [place] [address] OB OB/Gynecology Comment on above: OB Start: 02-01-2025 End: 02-01-2025 Patient encounter procedure 02/01/2025 1:50 PM EDT Routine Office Visit OB/Gynecology [address] [place] [address] Shade Alexander MD [address] [place] [address] OB OB/Gynecology Comment on above: OB Start: 01-27-2025 End: 01-27-2025 Patient encounter procedure 01/27/2025 10:40 AM EDT Routine Office Visit OB/Gynecology [address] [place] [address] Lizzeth Ramos MD [address] [place] [address] ob OB/Gynecology Comment on above: ob Start: 01-18-2025 End: 01-18-2025 Patient encounter procedure 01/18/2025 10:30 AM EDT Routine Office Visit OB/Gynecology [address] [place] [address] Lizzeth Ramos MD [address] [place] [address] OB OB/Gynecology Comment on above: OB Start: 01-12-2025 End: 01-12-2025 Patient encounter procedure 01/12/2025 11:00 AM EDT Routine Office Visit Maternal Medicine [address] [place] [address] anatomy us [facility] Comment on above: anatomy us Start: 01-04-2025 End: 01-04-2026 OBSTETRIC ULTRASOUND WHI OBSTETRIC ULTRASOUND WHI Anc Imaging Routine Encounter for supervision of high risk multigravida of advanced maternal age, antepartum (HCC) 32 weeks gestation of (HCC) Uterine size-date discrepancy, third trimester (HCC) Expected: 01/04/2025, Expires: 01/04/2026 [facility] Work Phone: Comment on above: Expected: 01/04/2025 , Expires: 01/04/2026 Start: 01-04-2025 End: 01-04-2025 Patient encounter procedure 01/04/2025 1:30 PM EDT Routine Office Visit OB/Gynecology [address] [place] [address] Lizzeth Ramos MD [address] [place], [place] [address] OB OB/Gynecology Comment on above: OB Start: 12-21-2024 End: 12-21-2024 Patient encounter procedure 12/21/2024 1:40 PM EDT Routine Office Visit OB/Gynecology [address] [place] [address] Lizzeth Ramos MD [address] [place] [address] OB OB/Gynecology Comment on above: OB Start: 12-07-2024 End: 12-07-2024 Patient encounter procedure OB/Gynecology Comment on above: OB OB - [facility] u/s from 12/01 in care everywhere Start: 12-07-2024 End: 12-07-2024 ambulatory 12/07/2024 12:45 PM EDT Results Only Javid Doherty [facility] [address] [place] [address] [facility] Start: 11-16-2024 End: 02-15-2025 ANEMIA REFLEX PANEL ANEMIA REFLEX PANEL Lab Routine History of vacuum extraction assisted delivery Low lying placenta nos or without hemorrhage, second trimester (HCC) Obesity affecting in second trimester, unspecified obesity type (HCC) Multigravida of advanced maternal age in second trimester (HCC) Rh negative state in antepartum period ([facility]) Major depressive disorder with current active episode, unspecified depression episode severity, unspecified whether recurrent Expected: 11/16/2024, Expires: 02/15/2025 [facility] Comment on above: Expected: 11/16/2024 , Expires: 02/15/2025 Start: 11-16-2024 End: 11-16-2025 GESTATIONAL GLUCOSE SCREEN, 1-HOUR, 50 GRAM, NON-FASTING GESTATIONAL GLUCOSE SCREEN, 1-HOUR, 50 GRAM, NON-FASTING Lab Routine History of vacuum extraction assisted delivery Low lying placenta nos or without hemorrhage, second trimester (HCC) Obesity affecting in second trimester, unspecified obesity type (HCC) Multigravida of advanced maternal age in second trimester (HCC) Rh negative state in antepartum period (HCC) Major depressive disorder with current active episode, unspecified depression episode severity, unspecified whether recurrent Screening for diabetes mellitus Expected: 11/16/2024, Expires: 11/16/2025 [facility] Work Phone: Comment on above: Expected: 11/16/2024 , Expires: 11/16/2025 Start: 11-16-2024 End: 11-16-2025 SYPHILIS TREPONEMAL W/REFLEX SYPHILIS TREPONEMAL W/REFLEX Lab Routine History of vacuum extraction assisted delivery Low lying placenta nos or without hemorrhage, second trimester (HCC) Obesity affecting in second trimester, unspecified obesity type (HCC) Multigravida of advanced maternal age in second trimester (HCC) Rh negative state in antepartum period (HCC) Major depressive disorder with current active episode, unspecified depression episode severity, unspecified whether recurrent Expected: 11/16/2024, Expires: 11/16/2025 [facility] Comment on above: Expected: 11/16/2024 , Expires: 11/16/2025 Start: 11-16-2024 End: 02-15-2025 TYPE + SCREEN TYPE + SCREEN Blood Bank Routine History of vacuum extraction assisted delivery Low lying placenta nos or without hemorrhage, second trimester (HCC) Obesity affecting in second trimester, unspecified obesity type (HCC) Multigravida of advanced maternal age in second trimester (HCC) Rh negative state in antepartum period (HCC) Major depressive disorder with current active episode, unspecified depression episode severity, unspecified whether recurrent Screening for diabetes mellitus Expected: 11/16/2024, Expires: 02/15/2025 [facility] Comment on above: Expected: 11/16/2024 , Expires: 02/15/2025 Start: 03-13-2024 Covid-19 Vaccine ( season) Covid-19 Vaccine () [facility] Start: 11-05-2023 Liquid based cervica l cytology screening [facility] Start: 09-27-2023 Patient discharge [facility] Start: 09-27-2023 Procedure related to [facility] Start: 09-26-2023 Consultation [facility] Start: 09-25-2023 Documentation procedure [facility] Start: 09-25-2023 Administration of bl ood product [facility] Start: 09-25-2023 Administration of medication [facility] Start: 09-25-2023 Application of ice collar, cap or bag [facility] Start: 09-25-2023 Catheterization of vein [facility] Start: 09-25-2023 Introduction of urin juan catheter [facility] Start: 09-25-2023 Measuring intake and output [facility] Start: 09-25-2023 Notification of physician [facility] Start: 09-25-2023 Procedure discontinued [facility] Start: 09-25-2023 Provision of activit y privileges [facility] Start: 09-25-2023 Vital signs measurements [facility] Start: 09-25-2023 End: 09-25-2023 [facility] Start: 09-25-2023 [facility] Start: 09-25-2023 Notification of physician [facility] Start: 09-25-2023 [facility] Start: 09-24-2023 Notification of physician [facility] Start: 09-24-2023 [facility] Start: 09-24-2023 acoustic stimulation test [facility] Start: 09-24-2023 Intrauterine catheterization [facility] Start: 09-24-2023 End: 09-24-2023 [facility] Start: 09-24-2023 Admission procedure [facility] Start: 09-24-2023 Anesthesia consultation [facility] Start: 09-24-2023 Application of intermittent pneumatic compression device [facility] Start: 09-24-2023 Insertion of cathete r into peripheral vein [facility] Start: 09-24-2023 Introduction of urin juan catheter [facility] Start: 09-24-2023 Obstetric monitoring [facility] Start: 09-24-2023 Provision of activit y privileges [facility] Start: 09-24-2023 Vital signs measurements [facility] Start: 09-24-2023 Nonstress test [facility] Start: 09-24-2023 Obstetric monitoring [facility] Start: 09-24-2023 Vital signs measurements [facility] Start: 09-24-2023 [facility] Start: 09-21-2023 Patient discharge [facility] Start: 08-05-2023 Thiamine measurement [facility] Start: 08-05-2023 Vitamin D, 1,25-dihy droxy measurement [facility] Start: 08-03-2023 Nonstress test [facility] Start: 08-03-2023 Obstetric monitoring [facility] Start: 08-03-2023 Vital signs measurements [facility] Start: 08-03-2023 [facility] Start: 08-03-2023 Iv infusion hydratio n initial 31 min-1 hour HYDRATION IV INFUSION [facility] Start: 08-03-2023 Catheterization of vein [facility] Start: 08-03-2023 Patient discharge [facility] Start: 04-24-2023 Iv infusion therapy/prophylaxis /dx 1st to 1 hr THER/PROPH/DIAG IV INF [facility] Start: 04-24-2023 Therapeutic injectio n iv push each new drug TX/PRO/DX INJ NEW DRUG [facility] Start: 01-26-2023 EPV, Provider: Jose Lewis, Status: Pen, Time: 8:15 AM EPV, Provider: Jose Lewis, Status: Pen, Time: 8:15 AM [facility] Work Phone: Start: 01-26-2023 Patient encounter procedure [facility] Start: 01-20-2022 EPV, Provider: Jose Lewis, Status: Pen, Time: 8:45 AM EPV, Provider: Jose Lewis, Status: Pen, Time: 8:45 AM [facility] Work Phone: Start: 01-20-2022 EPV, Provider: Gema Ponce, Status: Pen, Time: 8:30 AM EPV, Provider: Gema Ponce, Status: Pen, Time: 8:30 AM [facility] Work Phone: Start: 06-17-2021 IUDRMVL, Provider: Richardson Guo, Status: Pen, Time: 11:00 AM IUDRMVL, Provider: Richardson Guo, Status: Pen, Time: 11:[address] Work Phone: Start: 04-23-2021 Patient encounter procedure ANNUAL, Provider: Richardson Guo, Status: Pen, Time: 9:45 AM [facility] Work Phone: Start: 04-19-2021 End: 04-19-2021 Patient encounter procedure 04/19/2021 Office Visit Neurology Erma Haskins DO [address] [place] [address] [phone] [facility] Start: 03-13-2021 Influenza vaccination INFLUENZ A VACCINE (Season Ended) [facility] Start: 12-18-2020 End: 12-18-2020 Patient encounter procedure 12/18/2020 Office Visit Neurology Erma Haskins DO [address] [place] [address] [phone] [facility] Start: 2009 Screening for malign ant neoplasm of cervix [facility] Start: 10-22-2007 Third diphtheria, te tanus and acellular pertussis (DTaP) vaccination TDAP (ADULT) [facility] Start: 2006 Anxiety Screening Anxiety Screening [facility] Start: 2006 Depression Screening Depression Scre sofia [facility] Start: 2006 Hepatitis C screening Hepatitis C Or tiffanie [facility] Start: 2006 HIV screening HIV Screening [facility] Start: 2006 Tetanus vaccination TETANUS [facility] Start: 2004 COVID-19 VACCINE (1) COVID-19 VACCIN E (1) [facility] Start: 10-22-2003 HIV screening HIV SCREENING DISCUSSION [facility] Start: 2001 HIV screening HIV SCREENING DISCUSSION [facility] Start: 1988 Hepatitis C antibody , confirmatory test HEPATITIS C VIRUS SCREENING [facility] CBC W Auto Different ial panel - Blood [facility] Glucose [Mass/volume ] in Serum or Plasma --1 hour post 50 g glucose PO [facility] Measurement of gluco se 2 hours after glucose challenge for glucose tolerance test [facility] Path report.final Dx Spec [facility] Patient Education [facility] Work Phone: Patient referral [facility] Work Phone: ROUTINE, GR OUP B STREPTOCOCCUS BY PCR ROUTINE, GROUP B STREPTOCOCCUS BY PCR Microbiology Routine Encounter for supervision of high risk multigravida of advanced maternal age, antepartum (HCC) 36 weeks gestation of (HCC) 01/27/2025 11:13 AM EDT [facility] Work Phone: Serologic test for syphilis [facility] URINE OB DIP B/O URINE OB DIP B/ O Lab Routine 34 weeks gestation of (HCC) Encounter for supervision of high risk multigravida of advanced maternal age, antepartum (HCC) History of vacuum extraction assisted delivery Ordered: 01/12/2025 [facility] Work Phone: Comment on above: Ordered: 01/12/2025 [facility] Immunizations Immunization Date Immunization Notes Care Provider Flora abarca 12-07-2024 tetanus toxoid, redu efren diphtheria toxoid, and acellular pertussis vaccine, adsorbed Shade Alexander MD Work Phone: [facility] 05-16-2024 influenza, seasonal, injectable, preservative free Shade Alexander MD Work Phone: [facility] 05-16-2024 influenza virus vacc ine, unspecified formulation Prabha Quevedo DISABILITY CASE MANAGER.CNM Work Phone: [facility] 07-20-2023 tetanus toxoid, redu efren diphtheria toxoid, and acellular pertussis vaccine, adsorbed TIRE SORTER-C Noemi Dallas TIRE SORTER Work Phone: [facility] 04-03-2023 influenza, injectabl e, quadrivalent, preservative free TIRE SORTER-C Noemi Dallas TIRE SORTER Work Phone: [facility] 05-14-2021 influenza, injectabl e, quadrivalent, preservative free Shade Alxeander MD Work Phone: [facility] 10-26-2020 Pfizer-BioNTech COVI D-19 Vacc 30 MCG/0.3ML Intramuscular Suspension Noemi Dallas Work Phone: [facility] Work Phone: 09-27-2020 Pfizer-BioNTech COVI D-19 Vacc 30 MCG/0.3ML Intramuscular Suspension Noemi Dallas Work Phone: [facility] Work Phone: Comment on above: Series: 05-26-2020 influenza, injectabl e, quadrivalent, preservative free Noemi Dallas Work Phone: [facility] Work Phone: 04-07-2019 influenza, injectabl e, quadrivalent, preservative free Noemi Dallas Work Phone: [facility] Work Phone: 10-04-2018 tetanus toxoid, redu efren diphtheria toxoid, and acellular pertussis vaccine, adsorbed Noemi Dallas Work Phone: [facility] Work Phone: 05-16-2018 influenza, injectabl e, quadrivalent, preservative free Noemi Dallas Work Phone: [facility] Work Phone: 04-04-2017 influenza, injectabl e, quadrivalent, preservative free Noemi Dallas Work Phone: [facility] Work Phone: 03-16-2016 influenza, injectabl e, quadrivalent, preservative free Noemi Dallas Work Phone: [facility] Work Phone: 05-28-2009 novel influenza-H1N1 -09, preservative-free, injectable Noemi Dallas Work Phone: [facility] Work Phone: 10-02-2006 meningococcal polysaccharide vaccine (MPSV4) Noemi Dallas Work Phone: [facility] Work Phone: 10-02-2006 tetanus toxoid, redu efren diphtheria toxoid, and acellular pertussis vaccine, adsorbed Noemi Dallas Work Phone: [facility] Work Phone: 05-19-2001 hepatitis B vaccine, pediatric or pediatric/adolescent dosage Noemi Dallas Work Phone: [facility] Work Phone: 11-11-2000 hepatitis B vaccine, pediatric or pediatric/adolescent dosage Noemi Dallas Work Phone: [facility] Work Phone: 10-06-2000 hepatitis B vaccine, pediatric or pediatric/adolescent dosage Noemi Dallas Work Phone: [facility] Work Phone: 10-06-2000 measles, mumps and rubella virus vaccine Noemi Dallas Work Phone: [facility] Work Phone: 12-05-1993 diphtheria, tetanus toxoids and acellular pertussis vaccine, unspecified formulation Noemi Dallas Work Phone: [facility] Work Phone: 12-05-1993 poliovirus vaccine, inactivated Noemi Dallas Work Phone: [facility] Work Phone: 05-19-1990 diphtheria, tetanus toxoids and acellular pertussis vaccine, unspecified formulation Noemi Dallas Work Phone: [facility] Work Phone: 05-19-1990 poliovirus vaccine, inactivated Noemi Dallas Work Phone: [facility] Work Phone: 02-10-1990 haemophilus influenz ae type b vaccine, conjugate unspecified formulation Noemi Dallas Work Phone: [facility] Work Phone: 02-10-1990 measles, mumps and rubella virus vaccine Noemi Dallas Work Phone: [facility] Work Phone: 04-22-1989 diphtheria, tetanus toxoids and pertussis vaccine Noemi Dallas Work Phone: [facility] Work Phone: 02-26-1989 diphtheria, tetanus toxoids and pertussis vaccine Noemi Dallas Work Phone: [facility] Work Phone: 02-26-1989 poliovirus vaccine, inactivated Noemi Dallas Work Phone: [facility] Work Phone: 1988 diphtheria, tetanus toxoids and pertussis vaccine Noemi Dallas Work Phone: [facility] Work Phone: 1988 poliovirus vaccine, inactivated Noemi Dallas Work Phone: [facility] Work Phone: Payers Date Payer Category Payer Self-pay 2023 Unknown [id number] 2020 Private Health Insurance NALLELY DEL [employer]AR[employer] [id number] 2020-Present [id number] 2017 Private Health Insurance [id number] 2017 Private Health Insurance 1988 Unknown [id number] 1988 Unknown [id number] 9 Unknown Unknown [id number] Unknown [id number] 2 Unknown [id number] 2 Unknown [id number] 2 Unknown [id number] 2 Unknown [id number] 2 Unknown [id number] 2 Unknown [id number] 2 Unknown [id number] 2 Unknown [id number] 2 Unknown [id number] 2 Social History Date Type Detail Facility [facility] Start: 1990 Sex Assigned At Not on file [facility] [employer] [facility] Exposure to SARS-CoV -2 (event) Not sure [facility] Start: 11-16-2024 End: 12-07-2024 Never smoker Never smoker [facility] Work Phone: Comment on above: Noman Prado in [place]. 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; Start: 12-18-2022 End: 10-02-2023 Tobacco smoking consumption unknown [facility] Start: 1990 Sex Assigned At Female [facility] Start: 07-15-2024 End: 11-15-2024 Tobacco smoking status NHIS Never smoked tobacco [facility] Start: 11-15-2024 Tobacco use and exposure Smokeless tobacco non-user [facility] Start: 11-16-2024 End: 01-27-2025 Alcoholic beverage intake Current non-drinker of alcohol (finding) [facility] Start: 11-16-2024 End: 12-07-2024 Tobacco use panel [facility] Start: 11-15-2024 Education 20 [facility] Start: 06-02-2024 [facility] Start: 11-15-2024 Gender identity Identifies as female gender (finding) [facility] Start: 11-15-2024 Sexual orientation Heterosexual (fin ding) [facility] National Score (1-10 0), lower number is lower risk 51 [facility] Goals Date Patient Goal Desired Activity /State Personal health goal Comment on above: Formatting of this n ote might be different from the original. Patient will be independent in a home exercise program to improve/maintain cervical and thoracic ROM, postural flexibility, and muscular strength of the upper body in 6 weeks. Patient will have a decrease complaint of AMBROSE intensity and frequency to 0/10 or to an acceptable tolerable level in 6 weeks. Patient will be able to demonstrate cervical AROM in all planes of motion without pain and to normative values related to age, gender, and body type to allow the patient to perform normal ADL and recreational activities in 6 weeks. Patient will demonstrate improved strength of the deep neck flexors to normative values to provide greater active support of the head and neck in 6 weeks. Patient will have normal quaker of shoulder AROM/PROM and strength of the shoulder and scapular musculature to improve patient s ability use UE without symptoms in 6 weeks. Mental Status Date Assessment Result Facility 04-24-2023 Cognitive function Voice/Name [facility] Work Phone: Clinical Notes 09-13-2009 to 02-10-2025 Quick Notes - Chanda Huffman MD - 02/10/2025 9:13 AM EDTPrenatal Quick Notes - Chanda Huffman MD - 02/10/2025 9:13 AM EDTPatient InstructionsPatient Instructions Note Date & Type Note Facility 02-10-2025 Progress note Formatting of t his note might be different from the original. DM-Pt doing well. Denies vaginal Bleeding, Leaking fluid, or regular Contractions. Pt reports good movement Physical Exam: Gen: female in no apparent distress Abd: soft, Gravid. Non tender to palpation. See flow sheet @ 38.1 weeks Assessment & Plan Encounter for supervision of high risk multigravida of advanced maternal age, antepartum ([facility]) Orders: URINE OB DIP B/O History of vacuum extraction assisted delivery Orders: URINE OB DIP B/O Multigravida of advanced maternal age in third trimester ([facility]) Reviewed Elective IOL 39+ - declines at this time Orders: URINE OB DIP B/O Uterine size-date discrepancy, third trimester ([facility]) AGA per growth on 01/12/25 Orders: URINE OB DIP B/O 38 weeks gestation of ([facility]) Kick counts and labor reviewed RTO weekly Orders: URINE OB DIP B/O Chanda Lilly MD [facility] 02-10-2025 Miscellaneous Notes DM-Pt doing well. Denies vaginal Bleeding, Leaking fluid, or regular Contractions. Pt reports good movement Physical Exam: Gen: female in no apparent distress Abd: soft, Gravid. Non tender to palpation. See flow sheet @ 38.1 weeks Assessment & Plan Encounter for supervision of high risk multigravida of advanced maternal age, antepartum ([facility]) Orders: URINE OB DIP B/O History of vacuum extraction assisted delivery Orders: URINE OB DIP B/O Multigravida of advanced maternal age in third trimester ([facility]) Reviewed Elective IOL 39+ - declines at this time Orders: URINE OB DIP B/O Uterine size-date discrepancy, third trimester ([facility]) AGA per growth on 01/12/25 Orders: URINE OB DIP B/O 38 weeks gestation of ([facility]) Kick counts and labor reviewed RTO weekly Orders: URINE OB DIP B/O Chanda Lilly MD documented in this encounter [facility] 02-10-2025 Instructions Morteza Gifford LPN - 02/10/2025 8:57 AM EDT SEQUENTIAL SCREENINGS The [facility] offers sequential screenings for women who are interested in screenings for chromosomal abnormalities and certain defects during a . The sequential screen combines ultrasound and blood tests to determine the risk of chromosomal abnormalities, including Down's Syndrome (Trisomy 21) and Trisomy 18, as well as open neural tube defects including spina bifida. Ultrasound examination is performed between 11 weeks and 13 weeks gestational age. Blood tests are drawn after the ultrasound and again later in the between 15 and 21 weeks gestational age. Please let your physician know if you are interested in this testing. It will require an appointment with our fiberglass technician. This is not an ultrasound performed by a physician in our office during a routine visit. SIGNS AND SYMPTOMS OF LABOR 1. Contractions every 10 minutes or more often 2. Clear, pink, or brownish fluid (water) leaking from vagina 3. Feeling that baby is pushing down, pressure 4. Low, dull backache 5. Cramps that feel like a period 6. Cramps with or without diarrhea If you notice any of the above symptoms, contact our office at [phone] and ask to speak with a nurse. After hours, you can call doctors registry at [phone] OR call [facility] at [phone] and ask to have the doctor division order technician paged. If you consider this an emergency, dial [phone]- or go to your nearest emergency department. NEED HELP? Are you dealing with a violent or abusive relationship? Are you a victim of rape or sexual assult? Call [facility] ([place]) 24 hour Crisis Hotline: 949.618.5978 or 703-483-3247. MANUAL Your Guide to a Healthy manual is now on-line. Visit [email or web address] to download your free copy documented in this encounter [facility] 02-10-2025 Note HNO ID: [id number] Author: SVITLANA FAIRCHILD, ? Service: ? Author Type: Patient Zigzagger Type: Progress Notes Filed: 02/10/2025 08:47 Note Text: POPULATION HEALTH NAVIGATION OUTREACH Action/FYI 3rd attempt left message to add inspector raw quartz to ob provider field Reason for Outreach Medicaid OB/Peds Care Gaps due: N/A Patient Contacted: Unable or unnecessary to reach patient: Unable to reach patient Left message Navigation Signature: Svitlana Fairchild Population Health Navigator February 10, 2025 8:[address] [facility] 02-09-2025 Note HNO ID: [id number] Author: SVITLANA FAIRCHILD, ? Service: ? Author Type: Patient Zigzagger Type: Progress Notes Filed: 02/09/2025 08:14 Note Text: POPULATION HEALTH NAVIGATION OUTREACH Action/FYI Left message to add inspector raw quartz to OB provider field, My chart sent Reason for Outreach Medicaid OB/Peds Care Gaps due: N/A Patient Contacted: Unable or unnecessary to reach patient: Unable to reach patient Left message MyChart message sent Navigation Signature: Svitlana Fairchild Population Health Navigator February 09, 2025 8:[address] [facility] 02-09-2025 History of Presen t illness Narrative POPULATION HEALTH NAVIGATION OUTREACH Action/FYI Left message to add inspector raw quartz to OB provider field, My chart sent Reason for Outreach Medicaid OB/Peds Care Gaps due: N/A Patient Contacted: Unable or unnecessary to reach patient: Unable to reach patient Left message MyChart message sent Navigation Signature: Svitlana Fairchild Population Health Navigator February 09, 2025 8:13 AM documented in this encounter [facility] 02-09-2025 Note Patient Outreach (NE TNAV) QUINTENANAHY Mcginnis ([id number]) 1990 F Date Time Provider Department 02/09/25 SVITLANA FAIRCHILD During your visit today, we recorded the following information about you: Svitlana Fairchild 02/09/2025 8:14 AM Signed POPULATION HEALTH NAVIGATION OUTREACH Action/FYI Left message to add inspector raw quartz to OB provider field, My chart sent Reason for Outreach Medicaid OB/Peds Care Gaps due: N/A Patient Contacted: Unable or unnecessary to reach patient: Unable to reach patient Left message [employer] message sent Navigation Signature: Svitlana Fairchild Population Health Navigator February 09, 2025 8:13 AM Svitlana Fairchild 02/10/2025 8:47 AM Signed POPULATION HEALTH NAVIGATION OUTREACH Action/FYI 3rd attempt left message to add inspector raw quartz to ob provider field Reason for Outreach Medicaid OB/Peds Care Gaps due: N/A Patient Contacted: Unable or unnecessary to reach patient: Unable to reach patient Left message Navigation Signature: Svitlana Fairchild Population Health Navigator February 10, 2025 8:46 AM Allergies As of Date: 02/09/2025 Noted Allergy Reaction CODEINE 11/15/2024 11 - Vomiting SULFA (SULFONAMIDE ANTIBIOTICS) 06/20/2008 Date Reviewed: 02/01/2025 Reviewed by: Eugenio Dennis LPN - Fully Assessed Reason for Visit: Population Health Navigation Outreach [3910] Cmt: to PCP/OB Prescriptions as of 02/10/2025 - aspirin, enteric coated (ECOTRIN LOW STRENGTH) 81 mg EC tablet Take 1 tablet by mouth once daily. - sertraline (ZOLOFT) 100 mg tablet Take 100 mg by mouth once daily. - PNV no.95/ferrous fum/folic ac ( ORAL) Take 1 tablet by mouth once daily. Problem List As Of Date 02/09/2025 Noted Resolved History of vacuum extraction assisted delivery *11/16/2024 Rh negative state in antepartum period (HCC) [O*11/16/2024 Multigravida of advanced maternal age in second*11/16/2024 Obesity affecting in second trimester*11/16/2024 Low lying placenta nos or without hemorrhage, s*11/16/2024 Major depressive disorder with current active e*11/16/2024 History of infection [Z87.68] with care elsewhere in [facility]*11/16/2024 Elevated glucose [R73.09] 12/08/2024 Encounter Status:Closed by SVITLANA FAIRCHILD on 02/09/[address] [facility] 02-01-2025 Note HNO ID: [id number] Author: SHADE ALEXANDER MD Service: ? Author Type: Physician Type: Progress Notes Filed: 02/01/2025 14:39 Note Text: NST SUMMARY PROVIDER ASSESSMENT AND INTERPRETATION Anahy Escalante is a 34 year old female, , who is at 36w6d with an RICHARD of 02/23/2025, by Last Menstrual Period dating method. Indications for NST: Decreased Movement Baseline: 135 Variability: Moderate Accelerations: Present 15 X 15 Decelerations: None Contractions: TOCO: Irregular Interpretation: Reactive SIGNATURE: Shade Alexander MD [facility] 02-01-2025 History of Presen t illness Narrative NST SUMMARY PROVIDER ASSESSMENT AND INTERPRETATION Anahy Escalante is a 34 year old female, , who is at 36w6d with an RICHARD of 02/23/2025, by Last Menstrual Period dating method. Indications for NST: Decreased Movement Baseline: 135 Variability: Moderate Accelerations: Present 15 X 15 Decelerations: None Contractions: TOCO: Irregular Interpretation: Reactive SIGNATURE: Shade Alexander MD documented in this encounter [facility] 02-01-2025 Progress note Formatting of t his note might be different from the original. RR- VB No. LOF No. CTXS irreg. Movement: decreased. just todayOther c/o: No. Medication list reviewed. SENSITIVE EXAM: Sensitive exam not performed. Physical Exam See Flow Sheet Abd: soft, nontender, gravid Ext: edema: 1+ A/P 36w6d Estimated Date of Delivery: 02/23/25 Assessment & Plan 36 weeks gestation of (HCC) Orders: URINE OB DIP B/O Encounter for supervision of high risk multigravida of advanced maternal age, antepartum (HCC) Orders: URINE OB DIP B/O Decreased movements in third trimester, single or unspecified fetus (HCC) nst and howard counts reviewed Shade Alexander M.D. [facility] 02-01-2025 Miscellaneous Notes RR- VB No. LOF No. CTXS irreg. Movement: decreased. just todayOther c/o: No. Medication list reviewed. SENSITIVE EXAM: Sensitive exam not performed. Physical Exam See Flow Sheet Abd: soft, nontender, gravid Ext: edema: 1+ A/P 36w6d Estimated Date of Delivery: 02/23/25 Assessment & Plan 36 weeks gestation of (HCC) Orders: URINE OB DIP B/O Encounter for supervision of high risk multigravida of advanced maternal age, antepartum (HCC) Orders: URINE OB DIP B/O Decreased movements in third trimester, single or unspecified fetus (HCC) [place] and howard ribeiro reviewed Shade Alexander M.D. documented in this encounter [facility] 02-01-2025 Instructions Eugenio Dennis LPN - 02/01/2025 1:38 PM EDT SEQUENTIAL SCREENINGS The [facility] offers sequential screenings for women who are interested in screenings for chromosomal abnormalities and certain defects during a . The sequential screen combines ultrasound and blood tests to determine the risk of chromosomal abnormalities, including Down's Syndrome (Trisomy 21) and Trisomy 18, as well as open neural tube defects including spina bifida. Ultrasound examination is performed between 11 weeks and 13 weeks gestational age. Blood tests are drawn after the ultrasound and again later in the between 15 and 21 weeks gestational age. Please let your physician know if you are interested in this testing. It will require an appointment with our fiberglass technician. This is not an ultrasound performed by a physician in our office during a routine visit. SIGNS AND SYMPTOMS OF LABOR 1. Contractions every 10 minutes or more often 2. Clear, pink, or brownish fluid (water) leaking from vagina 3. Feeling that baby is pushing down, pressure 4. Low, dull backache 5. Cramps that feel like a period 6. Cramps with or without diarrhea If you notice any of the above symptoms, contact our office at [phone] and ask to speak with a nurse. After hours, you can call doctors registry at [phone] OR call [facility] at [phone] and ask to have the doctor division order technician paged. If you consider this an emergency, dial 91 or go to your nearest emergency department. NEED HELP? Are you dealing with a violent or abusive relationship? Are you a victim of rape or sexual assult? Call [facility] ([place]) 24 hour Crisis Hotline: 388.548.3383 or 201-280-0910. MANUAL Your Guide to a Healthy manual is now on-line. Visit [email or web address] to download your free copy documented in this encounter [facility] 01-27-2025 Progress note Formatting of t his note might be different from the original. S: Anahy Escalante is a 34 year old female who presents at 02/23/2025, by Last Menstrual Period for a routine visit. Denies headache, visual changes, chest pain, shortness of breath, vaginal bleeding, leakage of fluid, or dysuria. Feeling well, no complaints. Good movement, No contractions O: See flow sheet Gen: No apparent distress Abd: Gravid, nontender VTX on US Declined cervical exam GBS collected ASSESSMENT/PLAN: 1. Encounter for supervision of high risk multigravida of advanced maternal age, antepartum (HCC) - ICD9: V23.82, ICD10: O09.529 (primary diagnosis) - URINE OB DIP B/O - ROUTINE, GROUP B STREPTOCOCCUS BY PCR 2. History of vacuum extraction assisted delivery - ICD9: V13.29, ICD10: Z87.59 - URINE OB DIP B/O 3. Multigravida of advanced maternal age in third trimester ([facility]) - ICD9: 659.63, ICD10: O09.523 - URINE OB DIP B/O 4. Uterine size-date discrepancy, third trimester ([facility]) - ICD9: 649.63, ICD10: O26.843 - URINE OB DIP B/O 5. Major depressive disorder with current active episode, unspecified depression episode severity, unspecified whether recurrent - ICD9: 296.30, ICD10: F32.9 - URINE OB DIP B/O 6. 36 weeks gestation of ([facility]) - ICD9: V22.2, ICD10: Z3A.36 - URINE OB DIP B/O - ROUTINE, GROUP B STREPTOCOCCUS BY PCR Lizzeth Ramos MD [facility] 01-27-2025 Miscellaneous Notes S: Anahy Escalante is a 34 year old female who presents at 02/23/2025, by Last Menstrual Period for a routine visit. Denies headache, visual changes, chest pain, shortness of breath, vaginal bleeding, leakage of fluid, or dysuria. Feeling well, no complaints. Good movement, No contractions O: See flow sheet Gen: No apparent distress Abd: Gravid, nontender VTX on US Declined cervical exam GBS collected ASSESSMENT/PLAN: 1. Encounter for supervision of high risk multigravida of advanced maternal age, antepartum ([facility]) - ICD9: V23.82, ICD10: O09.529 (primary diagnosis) - URINE OB DIP B/O - ROUTINE, GROUP B STREPTOCOCCUS BY PCR 2. History of vacuum extraction assisted delivery - ICD9: V13.29, ICD10: Z87.59 - URINE OB DIP B/O 3. Multigravida of advanced maternal age in third trimester ([facility]) - ICD9: 659.63, ICD10: O09.523 - URINE OB DIP B/O 4. Uterine size-date discrepancy, third trimester (HCC) - ICD9: 649.63, ICD10: O26.843 - URINE OB DIP B/O 5. Major depressive disorder with current active episode, unspecified depression episode severity, unspecified whether recurrent - ICD9: 296.30, ICD10: F32.9 - URINE OB DIP B/O 6. 36 weeks gestation of (HCC) - ICD9: V22.2, ICD10: Z3A.36 - URINE OB DIP B/O - ROUTINE, GROUP B STREPTOCOCCUS BY PCR Lizzeth Ramos MD documented in this encounter [facility] 01-27-2025 Instructions Moni Zamora MA - 01/27/2025 10:49 AM EDT SEQUENTIAL SCREENINGS The [facility] offers sequential screenings for women who are interested in screenings for chromosomal abnormalities and certain defects during a . The sequential screen combines ultrasound and blood tests to determine the risk of chromosomal abnormalities, including Down's Syndrome (Trisomy 21) and Trisomy 18, as well as open neural tube defects including spina bifida. Ultrasound examination is performed between 11 weeks and 13 weeks gestational age. Blood tests are drawn after the ultrasound and again later in the between 15 and 21 weeks gestational age. Please let your physician know if you are interested in this testing. It will require an appointment with our fiberglass technician. This is not an ultrasound performed by a physician in our office during a routine visit. SIGNS AND SYMPTOMS OF LABOR 1. Contractions every 10 minutes or more often 2. Clear, pink, or brownish fluid (water) leaking from vagina 3. Feeling that baby is pushing down, pressure 4. Low, dull backache 5. Cramps that feel like a period 6. Cramps with or without diarrhea If you notice any of the above symptoms, contact our office at [phone] and ask to speak with a nurse. After hours, you can call doctors registry at [phone] OR call [facility] at [phone] and ask to have the doctor division order technician paged. If you consider this an emergency, dial [phone]- or go to your nearest emergency department. NEED HELP? Are you dealing with a violent or abusive relationship? Are you a victim of rape or sexual assult? Call [facility] ([place]) 24 hour Crisis Hotline: 421.982.6357 or 946-011-7022. MANUAL Your Guide to a Healthy manual is now on-line. Visit [email or web address] to download your free copy documented in this encounter [facility] 01-12-2025 Note HNO ID: [id number] Author: EUGENIO DENNIS LPN Service: ? Author Type: LICENSED NURSE Type: Progress Notes Filed: 01/12/2025 12:16 Note Text: Manual blood pressure onset visit 126/84 ANTHONY BP average 123/75 Anthony BP #01 - 124/77 pulse 98 oxygen 95 #02 - 111/74 pulse 90 oxygen 95 #03 - 114/75 pulse 92 oxygen 98 #04 - 110/71 pulse 93 oxygen 96 Eugenio Dennis LPN [facility] 01-12-2025 History of Presen t illness Narrative Manual blood pressure onset visit 126/84 ANTHONY BP average 123/75 Anthony BP #01 - 124/77 pulse 98 oxygen 95 #02 - 111/74 pulse 90 oxygen 95 #03 - 114/75 pulse 92 oxygen 98 #04 - 110/71 pulse 93 oxygen 96 Eugenio Dennis LPN documented in this encounter [facility] 01-12-2025 Progress note Formatting of t his note might be different from the original. S: Anahy Escalante is a 34 year old female who presents at 34 weeks gestation for a routine visit. Just completed growth US- EFW 58%, PARVEZ 19. Positive movements. Occasional beka moralez. Denies headache, visual changes, chest pain, shortness of breath, vaginal bleeding, leakage of fluid, or dysuria. Feeling well, no complaints. Initial BP slightly elevated out of patient's normal range at 126/84. Completed True BP and average normal at 123/75. O: See flow sheet Gen: No apparent distress Abd: Gravid, nontender ASSESSMENT/PLAN: 1. 34 weeks gestation of 2. Encounter for supervision of high risk multigravida of advanced maternal age, antepartum 3. History of vacuum extraction assisted delivery 4. AMA - 34 years old at time of delivery - PTL precautions reviewed and when to call office - RTO 2 weeks for MARINA with GBS- educated on process Prabha Quevedo APRN.CNM [facility] 01-12-2025 Miscellaneous Notes S: Anahy Escalante is a 34 year old female who presents at 34 weeks gestation for a routine visit. Just completed growth US- EFW 58%, PARVEZ 19. Positive movements. Occasional beka moralez. Denies headache, visual changes, chest pain, shortness of breath, vaginal bleeding, leakage of fluid, or dysuria. Feeling well, no complaints. Initial BP slightly elevated out of patient's normal range at 126/84. Completed True BP and average normal at 123/75. O: See flow sheet Gen: No apparent distress Abd: Gravid, nontender ASSESSMENT/PLAN: 1. 34 weeks gestation of 2. Encounter for supervision of high risk multigravida of advanced maternal age, antepartum 3. History of vacuum extraction assisted delivery 4. AMA - 34 years old at time of delivery - PTL precautions reviewed and when to call office - RTO 2 weeks for MARINA with GBS- educated on process Prabha Quevedo APRN.CNM documented in this encounter [facility] 01-12-2025 Instructions Eugenio Dennis LPN - 01/12/2025 10:43 AM EDT SEQUENTIAL SCREENINGS The [facility] offers sequential screenings for women who are interested in screenings for chromosomal abnormalities and certain defects during a . The sequential screen combines ultrasound and blood tests to determine the risk of chromosomal abnormalities, including Down's Syndrome (Trisomy 21) and Trisomy 18, as well as open neural tube defects including spina bifida. Ultrasound examination is performed between 11 weeks and 13 weeks gestational age. Blood tests are drawn after the ultrasound and again later in the between 15 and 21 weeks gestational age. Please let your physician know if you are interested in this testing. It will require an appointment with our fiberglass technician. This is not an ultrasound performed by a physician in our office during a routine visit. SIGNS AND SYMPTOMS OF LABOR 1. Contractions every 10 minutes or more often 2. Clear, pink, or brownish fluid (water) leaking from vagina 3. Feeling that baby is pushing down, pressure 4. Low, dull backache 5. Cramps that feel like a period 6. Cramps with or without diarrhea If you notice any of the above symptoms, contact our office at [phone] and ask to speak with a nurse. After hours, you can call doctors registry at [phone] OR call [facility] at [phone] and ask to have the doctor division order technician paged. If you consider this an emergency, dial [phone] or go to your nearest emergency department. NEED HELP? Are you dealing with a violent or abusive relationship? Are you a victim of rape or sexual assult? Call [facility] ([place]) 24 hour Crisis Hotline: 930.755.1582 or 515-762-9561. MANUAL Your Guide to a Healthy manual is now on-line. Visit [email or web address] to download your free copy documented in this encounter [facility] 01-04-2025 Progress note Formatting of t his note might be different from the original. DRAKE-S: Anayh Escalante is a 34 year old female who presents at 32w6d with RICHARD:02/23/2025, by Last Menstrual Period for a routine visit. Denies headache, visual changes, chest pain, shortness of breath, vaginal bleeding, leakage of fluid, or dysuria. Feeling well, no complaints. O: See flow sheet Gen: No apparent distress Abd: Gravid, nontender ASSESSMENT/PLAN: 1. Encounter for supervision of high risk multigravida of advanced maternal age, antepartum 2. History of vacuum extraction assisted delivery 3. Major depressive disorder with current active episode, unspecified depression episode severity, unspecified whether recurrent 4. 32 weeks gestation of 5. with care elsewhere in third trimester - OBSTETRIC ULTRASOUND WHI, Anatomy US ordered for transfer of care 6. Uterine size-date discrepancy, third trimester - OBSTETRIC ULTRASOUND WHI 7. Rh negative state in antepartum period 8. Multigravida of advanced maternal age in second trimester PTL precautions reviewed and when to call RTO in 2 weeks Pauline King APRN.CNM [facility] 01-04-2025 Miscellaneous Notes DRAKE-S: Anahy Escalante is a 34 year old female who presents at 32w6d with RICHARD:02/23/2025, by Last Menstrual Period for a routine visit. Denies headache, visual changes, chest pain, shortness of breath, vaginal bleeding, leakage of fluid, or dysuria. Feeling well, no complaints. O: See flow sheet Gen: No apparent distress Abd: Gravid, nontender ASSESSMENT/PLAN: 1. Encounter for supervision of high risk multigravida of advanced maternal age, antepartum 2. History of vacuum extraction assisted delivery 3. Major depressive disorder with current active episode, unspecified depression episode severity, unspecified whether recurrent 4. 32 weeks gestation of 5. with care elsewhere in third trimester - OBSTETRIC ULTRASOUND WHI, Anatomy US ordered for transfer of care 6. Uterine size-date discrepancy, third trimester - OBSTETRIC ULTRASOUND WHI 7. Rh negative state in antepartum period 8. Multigravida of advanced maternal age in second trimester PTL precautions reviewed and when to call RTO in 2 weeks Pauline King APRN.CNM documented in this encounter [facility] 01-04-2025 Instructions Shayna Leger MA - 01/04/2025 1:30 PM EDT SEQUENTIAL SCREENINGS The [facility] offers sequential screenings for women who are interested in screenings for chromosomal abnormalities and certain defects during a . The sequential screen combines ultrasound and blood tests to determine the risk of chromosomal abnormalities, including Down's Syndrome (Trisomy 21) and Trisomy 18, as well as open neural tube defects including spina bifida. Ultrasound examination is performed between 11 weeks and 13 weeks gestational age. Blood tests are drawn after the ultrasound and again later in the between 15 and 21 weeks gestational age. Please let your physician know if you are interested in this testing. It will require an appointment with our fiberglass technician. This is not an ultrasound performed by a physician in our office during a routine visit. SIGNS AND SYMPTOMS OF LABOR 1. Contractions every 10 minutes or more often 2. Clear, pink, or brownish fluid (water) leaking from vagina 3. Feeling that baby is pushing down, pressure 4. Low, dull backache 5. Cramps that feel like a period 6. Cramps with or without diarrhea If you notice any of the above symptoms, contact our office at [phone] and ask to speak with a nurse. After hours, you can call doctors registry at [phone] OR call [facility] at [phone] and ask to have the doctor division order technician paged. If you consider this an emergency, dial 9-1-8 or go to your nearest emergency department. NEED HELP? Are you dealing with a violent or abusive relationship? Are you a victim of rape or sexual assult? Call [facility] ([facility] 24 hour Crisis Hotline: 688.411.1653 or 555-766-5461. MANUAL Your Guide to a Healthy manual is now on-line. Visit [email or web address] to download your free copy documented in this encounter [facility] 12-21-2024 Progress note Formatting of t his note might be different from the original. S: Anahy Escalante is a 34 year old female who presents at 02/23/2025, by Last Menstrual Period for a routine visit. Denies headache, visual changes, chest pain, shortness of breath, vaginal bleeding, leakage of fluid, or dysuria. Feeling well, no complaints. Good movement, No contractions O: See flow sheet Gen: No apparent distress Abd: Gravid, nontender Passed 3 hour Low lying placenta resolved ASSESSMENT/PLAN: 1. Encounter for supervision of high risk multigravida of advanced maternal age, antepartum (HCC) - ICD9: V23.82, ICD10: O09.529 (primary diagnosis) 2. History of vacuum extraction assisted delivery - ICD9: V13.29, ICD10: Z87.59 3. 30 weeks gestation of (HCC) - ICD9: V22.2, ICD10: Z3A.30 4. Major depressive disorder with current active episode, unspecified depression episode severity, unspecified whether recurrent - ICD9: 296.30, ICD10: F32.9 alie Ramos MD [facility] 12-21-2024 Miscellaneous Notes S: Anahy Escalante is a 34 year old female who presents at 02/23/2025, by Last Menstrual Period for a routine visit. Denies headache, visual changes, chest pain, shortness of breath, vaginal bleeding, leakage of fluid, or dysuria. Feeling well, no complaints. Good movement, No contractions O: See flow sheet Gen: No apparent distress Abd: Gravid, nontender Passed 3 hour Low lying placenta resolved ASSESSMENT/PLAN: 1. Encounter for supervision of high risk multigravida of advanced maternal age, antepartum (HCC) - ICD9: V23.82, ICD10: O09.529 (primary diagnosis) 2. History of vacuum extraction assisted delivery - ICD9: V13.29, ICD10: Z87.59 3. 30 weeks gestation of ([facility]) - ICD9: V22.2, ICD10: Z3A.30 4. Major depressive disorder with current active episode, unspecified depression episode severity, unspecified whether recurrent - ICD9: 296.30, ICD10: F32.9 alie Ramos MD documented in this encounter [facility] 12-21-2024 Instructions Morteza Gifford MA - 12/21/2024 1:22 PM EDT SEQUENTIAL SCREENINGS The [facility] offers sequential screenings for women who are interested in screenings for chromosomal abnormalities and certain defects during a . The sequential screen combines ultrasound and blood tests to determine the risk of chromosomal abnormalities, including Down's Syndrome (Trisomy 21) and Trisomy 18, as well as open neural tube defects including spina bifida. Ultrasound examination is performed between 11 weeks and 13 weeks gestational age. Blood tests are drawn after the ultrasound and again later in the between 15 and 21 weeks gestational age. Please let your physician know if you are interested in this testing. It will require an appointment with our fiberglass technician. This is not an ultrasound performed by a physician in our office during a routine visit. SIGNS AND SYMPTOMS OF LABOR 1. Contractions every 10 minutes or more often 2. Clear, pink, or brownish fluid (water) leaking from vagina 3. Feeling that baby is pushing down, pressure 4. Low, dull backache 5. Cramps that feel like a period 6. Cramps with or without diarrhea If you notice any of the above symptoms, contact our office at [phone] and ask to speak with a nurse. After hours, you can call doctors registry at [phone] OR call [facility] at [phone] and ask to have the doctor division order technician paged. If you consider this an emergency, dial 9-1-9 or go to your nearest emergency department. NEED HELP? Are you dealing with a violent or abusive relationship? Are you a victim of rape or sexual assult? Call [facility] ([facility] 24 hour Crisis Hotline: 627.732.3600 or 615-743-7551. MANUAL Your Guide to a Healthy manual is now on-line. Visit [email or web address] to download your free copy documented in this encounter [facility] 12-07-2024 Progress note Formatting of t his note might be different from the original. RR- VB No. LOF No. CTXS No. Movement: present. Other c/o: occas. lightheadedness Medication list reviewed. SENSITIVE EXAM: Sensitive exam not performed. Physical Exam See Flow Sheet Abd: soft, nontender, gravid A/P 28w6d Estimated Date of Delivery: 02/23/25 Assessment & Plan Need for vaccination tdap today Encounter for supervision of high risk multigravida of advanced maternal age, antepartum (HCC) 28 weeks gestation of (HCC) rh neg declines rh prophylaxis rh neg. f/u in 2 weeks Shade Alexander M.D. [facility] 12-07-2024 Miscellaneous Notes RR- VB No. LOF No. CTXS No. Movement: present. Other c/o: occas. lightheadedness Medication list reviewed. SENSITIVE EXAM: Sensitive exam not performed. Physical Exam See Flow Sheet Abd: soft, nontender, gravid A/P 28w6d Estimated Date of Delivery: 02/23/25 Assessment & Plan Need for vaccination tdap today Encounter for supervision of high risk multigravida of advanced maternal age, antepartum (HCC) 28 weeks gestation of (HCC) rh neg declines rh prophylaxis rh neg. f/u in 2 weeks Shade Alexander M.D. documented in this encounter [facility] 12-07-2024 Note HNO ID: [id number] Author: SUZANNE BOWMAN MA Service: ? Author Type: Spiral Machine Operator Type: Progress Notes Filed: 12/07/2024 14:05 Note Text: Patient identified by name and date of . Anahy Escalante presents today for a vaccination of Tdap. Patient denies an allergy to latex: yes Patient denies a severe (life-threatening) allergy to a previous dose of Tdap, DTP, DTaP, DT or Td vaccine. Yes Patient denies history of epilepsy or neurological problems: Yes Patient is afebrile and denies being moderately or severely ill: currently being treated for ear infection. afebrile Patient denies history of Guillain-[place] Syndrome (a severe paralytic illness): Yes Tdap Adacel injection was given without incident. See immunizations for details of immunizations administered today. VIS sheet provided: Yes Provider Shade Alexander MD was present in office at time of injection. [facility] 12-07-2024 History of Presen t illness Narrative Patient identified by name and date of . Anahy Escalante presents today for a vaccination of Tdap. Patient denies an allergy to latex: yes Patient denies a severe (life-threatening) allergy to a previous dose of Tdap, DTP, DTaP, DT or Td vaccine. Yes Patient denies history of epilepsy or neurological problems: Yes Patient is afebrile and denies being moderately or severely ill: currently being treated for ear infection. afebrile Patient denies history of Guillain-[place] Syndrome (a severe paralytic illness): Yes Tdap Adacel injection was given without incident. See immunizations for details of immunizations administered today. VIS sheet provided: Yes Provider Shade Alexander MD was present in office at time of injection. documented in this encounter [facility] 12-07-2024 Instructions Morteza Gifford MA - 12/07/2024 1:07 PM EDT SEQUENTIAL SCREENINGS The [facility] offers sequential screenings for women who are interested in screenings for chromosomal abnormalities and certain defects during a . The sequential screen combines ultrasound and blood tests to determine the risk of chromosomal abnormalities, including Down's Syndrome (Trisomy 21) and Trisomy 18, as well as open neural tube defects including spina bifida. Ultrasound examination is performed between 11 weeks and 13 weeks gestational age. Blood tests are drawn after the ultrasound and again later in the between 15 and 21 weeks gestational age. Please let your physician know if you are interested in this testing. It will require an appointment with our fiberglass technician. This is not an ultrasound performed by a physician in our office during a routine visit. SIGNS AND SYMPTOMS OF LABOR 1. Contractions every 10 minutes or more often 2. Clear, pink, or brownish fluid (water) leaking from vagina 3. Feeling that baby is pushing down, pressure 4. Low, dull backache 5. Cramps that feel like a period 6. Cramps with or without diarrhea If you notice any of the above symptoms, contact our office at [phone] and ask to speak with a nurse. After hours, you can call doctors registry at [phone] OR call [facility] at [phone] and ask to have the doctor division order technician paged. If you consider this an emergency, dial 91-4 or go to your nearest emergency department. NEED HELP? Are you dealing with a violent or abusive relationship? Are you a victim of rape or sexual assult? Call [facility] ([place]) 24 hour Crisis Hotline: 925.928.8231 or 091-161-7324. MANUAL Your Guide to a Healthy manual is now on-line. Visit [email or web address] to download your free copy documented in this encounter [facility] 12-07-2024 Note HNO ID: [id number] Author: PAULINE NORWOOD APRN.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 Service: ? Author Type: Nurse Practitioner Type: Progress Notes Filed: 12/07/2024 07:47 Note Text: [facility] Subjective Anahy Escalante is a 34 year old female. Patient presents with: Ear Pain: right x 5 days, started with sinus pressure Ear Pain Sinus Congestion and Right Ear Pain: - Onset of sinus congestion approximately 5 days ago. - Developed really intense right ear pain last night. - Denies rhinorrhea, pharyngitis, ocular symptoms, cough, nausea, emesis, fever, or chills. - Tried Mucinex and Tylenol with some relief. : - Currently 28 weeks with second . - Receiving care. PAST MEDICAL HISTORY Diagnosis Date Depression History of infection 09/25/2023 History of depression September 2023 Post depression PAST SURGICAL HISTORY Procedure Laterality Date PAST SURGICAL HISTORY OF Ear tube insertion and tonsilectomy ALLERGIES Codeine and Sulfa (Sulfonamide Antibiotics) MEDICATIONS aspirin, enteric coated (ECOTRIN LOW STRENGTH) 81 mg EC tablet Take 1 tablet by mouth once daily. sertraline (ZOLOFT) 100 mg tablet Take 100 mg by mouth once daily. PNV no.95/ferrous fum/folic ac ( ORAL) Take 1 tablet by mouth once daily. amoxicillin (AMOXIL) 875 mg tablet Take 1 tablet by mouth two times a day for 7 days. FAMILY HISTORY Problem Relation Age of Onset Thyroid Father Graves disease Social History Tobacco Use Smoking status: Never Smokeless tobacco: Never Vaping Use Vaping status: Never Used Substance Use Topics Alcohol use: No Drug use: Never Review of Systems Constitutional: (-) fever, (-) chills Eyes: (-) eye complaints Ears/Nose/Mouth/Throat: (+) right otalgia, (+) sinus congestion, (-) sore throat Respiratory: (-) cough Gastrointestinal: (-) nausea, (-) vomiting Objective BP 120/68 Pulse 100 Temp 36.8 ?C (98.2 ?F) Resp 18 Wt 94.7 kg (208 lb 12.4 oz) LMP 05/19/2024 SpO2 98% BMI 31.74 kg/m? Physical Exam Vitals and nursing note reviewed. Constitutional: General: She is not in acute distress. Appearance: Normal appearance. She is normal weight. She is not ill-appearing, toxic-appearing or diaphoretic. HENT: Head: Normocephalic and atraumatic. Right Ear: Ear canal and external ear normal. Left Ear: Ear canal and external ear normal. Ears: Comments: Right TM erythematous and bulging Nose: Nose normal. No congestion or rhinorrhea. Mouth/Throat: Mouth: Mucous membranes are moist. Pharynx: No oropharyngeal exudate or posterior oropharyngeal erythema. Eyes: General: Right eye: No discharge. Left eye: No discharge. Extraocular Movements: Extraocular movements intact. Conjunctiva/sclera: Conjunctivae normal. Pupils: Pupils are equal, round, and reactive to light. Cardiovascular: Rate and Rhythm: Normal rate and regular rhythm. Pulses: Normal pulses. Heart sounds: Normal heart sounds. No murmur heard. No friction rub. Pulmonary: Effort: Pulmonary effort is normal. No respiratory distress. Breath sounds: Normal breath sounds. No stridor. No wheezing, rhonchi or rales. Chest: Chest wall: No tenderness. Abdominal: General: Abdomen is flat. There is no distension. Palpations: Abdomen is soft. There is no mass. Tenderness: There is no abdominal tenderness. There is no right CVA tenderness, left CVA tenderness, guarding or rebound. Hernia: No hernia is present. Musculoskeletal: General: No swelling, tenderness, deformity or signs of injury. Normal range of motion. Cervical back: Normal range of motion and neck supple. No rigidity. Right lower leg: No edema. Left lower leg: No edema. Lymphadenopathy: Cervical: Cervical adenopathy present. Skin: General: Skin is warm and dry. Coloration: Skin is not jaundiced or pale. Findings: No bruising, erythema, lesion or rash. Neurological: General: No focal deficit present. Mental Status: She is alert and oriented to person, place, and time. Cranial Nerves: No cranial nerve deficit. Sensory: No sensory deficit. Motor: No weakness. Coordination: Coordination normal. Gait: Gait normal. Psychiatric: Mood and Affect: Mood normal. Behavior: Behavior normal. Thought Content: Thought content normal. Judgment: Judgment normal. {1. 28 weeks gestation of ([facility]) (Z3A.28) - Currently 28 weeks gestation, second . - Receiving care. - Provided a list of medications safe during , including options for cold, cough, and congestion relief such as warm salt water gargles and saline spray. 2. Otalgia, right (H92.01) Contribute to AOM 3. Acute otitis media, right (H66.91) - Onset of right ear pain began last night, following sinus congestion that started over the weekend. - Physical exam reveals a bright red and bulging tympanic membrane on the right side, co (more content not included)... [facility] 12-07-2024 History of Presen t illness Narrative [facility] Subjective Anahy Mcginnis Escalante is a 34 year old female. Patient presents with: Ear Pain: right x 5 days, started with sinus pressure Ear Pain Sinus Congestion and Right Ear Pain: - Onset of sinus congestion approximately 5 days ago. - Developed really intense right ear pain last night. - Denies rhinorrhea, pharyngitis, ocular symptoms, cough, nausea, emesis, fever, or chills. - Tried Mucinex and Tylenol with some relief. : - Currently 28 weeks with second . - Receiving care. PAST MEDICAL HISTORY Diagnosis Date Depression History of infection 09/25/2023 History of depression September 2023 Post depression PAST SURGICAL HISTORY Procedure Laterality Date PAST SURGICAL HISTORY OF Ear tube insertion and tonsilectomy ALLERGIES Codeine and Sulfa (Sulfonamide Antibiotics) MEDICATIONS aspirin, enteric coated (ECOTRIN LOW STRENGTH) 81 mg EC tablet Take 1 tablet by mouth once daily. sertraline (ZOLOFT) 100 mg tablet Take 100 mg by mouth once daily. PNV no.95/ferrous fum/folic ac ( ORAL) Take 1 tablet by mouth once daily. amoxicillin (AMOXIL) 875 mg tablet Take 1 tablet by mouth two times a day for 7 days. FAMILY HISTORY Problem Relation Age of Onset Thyroid Father Graves disease Social History Tobacco Use Smoking status: Never Smokeless tobacco: Never Vaping Use Vaping status: Never Used Substance Use Topics Alcohol use: No Drug use: Never Review of Systems Constitutional: (-) fever, (-) chills Eyes: (-) eye complaints Ears/Nose/Mouth/Throat: (+) right otalgia, (+) sinus congestion, (-) sore throat Respiratory: (-) cough Gastrointestinal: (-) nausea, (-) vomiting Objective BP 120/68 Pulse 100 Temp 36.8 C (98.2 F) Resp 18 Wt 94.7 kg (208 lb 12.4 oz) LMP 05/19/2024 SpO2 98% BMI 31.74 kg/m Physical Exam Vitals and nursing note reviewed. Constitutional: General: She is not in acute distress. Appearance: Normal appearance. She is normal weight. She is not ill-appearing, toxic-appearing or diaphoretic. HENT: Head: Normocephalic and atraumatic. Right Ear: Ear canal and external ear normal. Left Ear: Ear canal and external ear normal. Ears: Comments: Right TM erythematous and bulging Nose: Nose normal. No congestion or rhinorrhea. Mouth/Throat: Mouth: Mucous membranes are moist. Pharynx: No oropharyngeal exudate or posterior oropharyngeal erythema. Eyes: General: Right eye: No discharge. Left eye: No discharge. Extraocular Movements: Extraocular movements intact. Conjunctiva/sclera: Conjunctivae normal. Pupils: Pupils are equal, round, and reactive to light. Cardiovascular: Rate and Rhythm: Normal rate and regular rhythm. Pulses: Normal pulses. Heart sounds: Normal heart sounds. No murmur heard. No friction rub. Pulmonary: Effort: Pulmonary effort is normal. No respiratory distress. Breath sounds: Normal breath sounds. No stridor. No wheezing, rhonchi or rales. Chest: Chest wall: No tenderness. Abdominal: General: Abdomen is flat. There is no distension. Palpations: Abdomen is soft. There is no mass. Tenderness: There is no abdominal tenderness. There is no right CVA tenderness, left CVA tenderness, guarding or rebound. Hernia: No hernia is present. Musculoskeletal: General: No swelling, tenderness, deformity or signs of injury. Normal range of motion. Cervical back: Normal range of motion and neck supple. No rigidity. Right lower leg: No edema. Left lower leg: No edema. Lymphadenopathy: Cervical: Cervical adenopathy present. Skin: General: Skin is warm and dry. Coloration: Skin is not jaundiced or pale. Findings: No bruising, erythema, lesion or rash. Neurological: General: No focal deficit present. Mental Status: She is alert and oriented to person, place, and time. Cranial Nerves: No cranial nerve deficit. Sensory: No sensory deficit. Motor: No weakness. Coordination: Coordination normal. Gait: Gait normal. Psychiatric: Mood and Affect: Mood normal. Behavior: Behavior normal. Thought Content: Thought content normal. Judgment: Judgment normal. {1. 28 weeks gestation of ([facility]) (Z3A.28) - Currently 28 weeks gestation, second . - Receiving care. - Provided a list of medications safe during , including options for cold, cough, and congestion relief such as warm salt water gargles and saline spray. 2. Otalgia, right (H92.01) Contribute to AOM 3. Acute otitis media, right (H66.91) - Onset of right ear pain began last night, following sinus congestion that started over the weekend. - Physical exam reveals a bright red and bulging tympanic membrane on the right side, consistent with acute otitis media. - No associated nasal, throat, or ocular symptoms; no cough, nausea, vomiting, fever, or chills reported. - Allergies to sulfa and codeine noted. - Initiated amoxicillin, 1 tablet twice daily, which is safe during . - Prescription sent to [facility]. and Recording using [employer] software for draft documentation of the visit was discussed with the patient/authorized phone representative; all questions welcomed and answered. Patient/authorized phone representative agreed to proceed History and Record Review External record(s) reviewed: prior inpatient record and prior outpatient record. Disposition The patient was discharged. Procedures documented in this encounter [facility] 12-07-2024 Instructions Pauline Norwood APRN.CNP - 12/07/2024 7:41 AM EDT - Take the amoxicillin prescribed for your right ear infection: 1 tablet by mouth twice a day. - Use warm salt-water gargles to soothe your throat as needed. - Use saline nasal spray to help relieve congestion. - Review the list of cold, flu, cough, and congestion remedies provided to choose other options that are safe for use during . documented in this encounter [facility] 11-16-2024 Progress note Formatting of t his note might be different from the original. Patient is a at 25.6 weeks gestation here for NOB. She is a transfer from [place]. Prabha Quevedo APRN.CNM [facility] 11-16-2024 Miscellaneous Notes Patient is a at 25.6 weeks gestation here for NOB. She is a transfer from [place]. Prabha Quevedo APRN.CNM documented in this encounter [facility] 11-15-2024 Note HNO ID: [id number] Author: PRABHA QUEVEDO APRN.CNM Service: ? Author Type: Director Revenue Type: Progress Notes Filed: 11/16/2024 13:54 Note Text: INITIAL OB ASSESSMENT HPI: Anahy is a 34 year old White Female here to establish Obstetrical Care. Patient's last menstrual period was 05/19/2024. from OB Dating Form. was planned Complaints: (!) Heart racing or skipping beats; Severe nausea/vomiting OB History Gravida2 Para1 Term1 Preterm0 AB0 Living1 SAB0 IAB0 Ectopic0 Multiple0 Live Births1 Previous history: Prior : No History of 4th degree laceration: No History of shoulder dystocia: No History of Hypertensive disorders including pre-eclampsia or gestational hypertension: No History of gestational diabetes: No Patient's Risk Screening for delivery: Have you had a prior rivas between 20w and 36w6d? No How many pregnancies have you had before? 1 Did you have a previous baby with a GBS Infection? No Please select all that apply for any prior : N/A MEDICAL/PSYCHOSOCIAL HISTORY: History of hemorrhage or bleeding concerns: No Thyroid Disease: No History of chronic hypertension: No History of pre-existing diabetes: No No results found for: ABORHD BMI 32.23 kg/(m2) Last Pap: History of abnormal pap: No Prior treatment for cervical dysplasia: none. Last HPV: History of STDs: N/A Partner History of STDs: None Did you have a partner with Herpes? No Tobacco use: No E-Cigarette/Vaping Use: No Caffeine use: Yes Drug use: No Alcohol use: No Multivitamin with Folic acid: Yes Would refuse blood transfusion if medically necessary: No Social Needs: How often does this describe you? I don't have enough money to pay my bills: Never Within the past 12 months, have you worried that your food would run out before you had money to buy more? Never In the past 12 months, has lack of reliable transportation kept you from going to medical appointments or work, or from getting things needed for daily living? Never In the past 12 months, have you had any concerns about having a place to live, or about the condition or quality of your housing? Never Would you like more information on any of the following (please check all that apply)? Director Revenue care Social History: Do you have any history of depression, anxiety, PTSD, or other mood problems? Yes Do you have a history of abuse or trauma that may impact your experience? No Are you currently employed? Yes Depression/Anxiety Screening: denies OB Depression and Anxiety Screening- This Encounter Over the past 2 weeks have you felt down, depressed, or hopeless? Negative Over the past two weeks, have you felt little interest or pleasure in doing things?? Negative Feeling nervous, anxious or on edge 0-Not at all Not being able to stop or control worrying 0-Not al all Anxiety Pre-Screening Total (If >/= 3 additional questions will be reviewed) 0 Genetic Screening: Partner present: No Patient verbalized knowledge of partner family health history: Yes Do you or your partner have any personal or family history of defects not previously discussed: No Do you have history of a complicated by anomaly, genetic condition, or demise: No Preeclampsia Risk Screening: Screening for prevention of preeclampsia: High risk factors: None Moderate risk ractors: Age 35 years or older OB Risk Screening: Completed, positive findings include: Patient answered 'Yes' to previous baby with a GBS Infection Marital Status: Partner: Name: Renato Age: 35 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 90 tablet 3 sertraline (ZOLOFT) 100 mg tablet Take 100 mg by mouth once daily. PNV no.95/ferrous fum/folic ac ( ORAL) Take 1 tablet by mouth once daily. COMPOUNDED PRESCRIPTION pristig 50 mg. take one daily 0 eszopiclone(LUNESTA 3 MG TAB) take one daily 0 lorazepam(ATIVAN 1 MG TAB) Take one(1) tablet every day 0 No current facility-administered medications for this visit. Allergies As of Date: 11/16/2024 Allergen Noted Reaction CODEINE 11/15/2024 Vomiting SULFA (SULFONAMIDE ANTIBIOTICS) 06/20/2008 Fully Assessed 11/16/2024 Does patient have penicillin allergy: No REVIEW OF SYSTEMS: GENERAL: Negative for: Fever or Chills HEENT: Negative for: Headache, Impaired Vision, Ringing in Ears, Nosebleeds NECK: Negative for: Swelling, Pain, Stiffness RESPIRATORY: Ne (more content not included)... [facility] 11-15-2024 History of Presen t illness Narrative INITIAL OB ASSESSMENT HPI: Anahy is a 34 year old White Female here to establish Obstetrical Care. Patient's last menstrual period was 05/19/2024. from OB Dating Form. was planned Complaints: (!) Heart racing or skipping beats; Severe nausea/vomiting OB History Gravida2 Para1 Term1 Preterm0 AB0 Living1 SAB0 IAB0 Ectopic0 Multiple0 Live Births1 Previous history: Prior : No History of 4th degree laceration: No History of shoulder dystocia: No History of Hypertensive disorders including pre-eclampsia or gestational hypertension: No History of gestational diabetes: No Patient's Risk Screening for delivery: Have you had a prior rivas between 20w and 36w6d? No How many pregnancies have you had before? 1 Did you have a previous baby with a GBS Infection? No Please select all that apply for any prior : N/A MEDICAL/PSYCHOSOCIAL HISTORY: History of hemorrhage or bleeding concerns: No Thyroid Disease: No History of chronic hypertension: No History of pre-existing diabetes: No No results found for: ABORHD BMI 32.23 kg/(m^2) Last Pap: History of abnormal pap: No Prior treatment for cervical dysplasia: none. Last HPV: History of STDs: N/A Partner History of STDs: None Did you have a partner with Herpes? No Tobacco use: No E-Cigarette/Vaping Use: No Caffeine use: Yes Drug use: No Alcohol use: No Multivitamin with Folic acid: Yes Would refuse blood transfusion if medically necessary: No Social Needs: How often does this describe you? I don't have enough money to pay my bills: Never Within the past 12 months, have you worried that your food would run out before you had money to buy more? Never In the past 12 months, has lack of reliable transportation kept you from going to medical appointments or work, or from getting things needed for daily living? Never In the past 12 months, have you had any concerns about having a place to live, or about the condition or quality of your housing? Never Would you like more information on any of the following (please check all that apply)? Director Revenue care Social History: Do you have any history of depression, anxiety, PTSD, or other mood problems? Yes Do you have a history of abuse or trauma that may impact your experience? No Are you currently employed? Yes Depression/Anxiety Screening: denies OB Depression and Anxiety Screening- This Encounter Over the past 2 weeks have you felt down, depressed, or hopeless? Negative Over the past two weeks, have you felt little interest or pleasure in doing things? Negative Feeling nervous, anxious or on edge 0-Not at all Not being able to stop or control worrying 0-Not al all Anxiety Pre-Screening Total (If >/= 3 additional questions will be reviewed) 0 Genetic Screening: Partner present: No Patient verbalized knowledge of partner family health history: Yes Do you or your partner have any personal or family history of defects not previously discussed: No Do you have history of a complicated by anomaly, genetic condition, or demise: No Preeclampsia Risk Screening: Screening for prevention of preeclampsia: High risk factors: None Moderate risk ractors: Age 35 years or older OB Risk Screening: Completed, positive findings include: Patient answered 'Yes' to previous baby with a GBS Infection Marital Status: Partner: Name: Renato Age: 35 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 90 tablet 3 sertraline (ZOLOFT) 100 mg tablet Take 100 mg by mouth once daily. PNV no.95/ferrous fum/folic ac ( ORAL) Take 1 tablet by mouth once daily. COMPOUNDED PRESCRIPTION pristig 50 mg. take one daily 0 eszopiclone(LUNESTA 3 MG TAB) take one daily 0 lorazepam(ATIVAN 1 MG TAB) Take one(1) tablet every day 0 No current facility-administered medications for this visit. Allergies As of Date: 11/16/2024 Allergen Noted Reaction CODEINE 11/15/2024 Vomiting SULFA (SULFONAMIDE ANTIBIOTICS) 06/20/2008 Fully Assessed 11/16/2024 Does patient have penicillin allergy: No REVIEW OF SYSTEMS: GENERAL: Negative for: Fever or Chills HEENT: Negative for: Headache, Impaired Vision, Ringing in Ears, Nosebleeds NECK: Negative for: Swelling, Pain, Stiffness RESPIRATORY: Negative for: Cough, Shortness of breath, Wheezing GASTROINTESTINAL: Negative for: Heartburn, Constipation, Diarrhea, Blood in stool, Vomiting MUSCULOSKELETAL: Negative for: Muscle or joint pain, stiffness, Joint swelling NEUROLOGIC/PSYCHIATRIC: Negative for: Weakness, Paralysis, Numbness, Tingling, Tremor, Anxiety, Depression, Memory loss SKIN: Negative for: Rash, Itching GENITOURINARY: Negative for: vaginal itching, vaginal discharge, hematuria or dysuria and Positive for: urinary frequency SENSITIVE EXAM: The sensitive examination was discussed with the Patient or Patient's Authorized Chair Frame Builder. As applicable, any other physician, advance practice provider, medical student, or other health professional student that will be observing or involved in the sensitive examination for educational or training purposes was discussed with the Patient or Authorized Chair Frame Builder. The Patient or Authorized Chair Frame Builder has agreed to proceed with the sensitive examination. (Sensitive examination includes inspection and/or palpation of the breasts, pelvis, prostate and anorectal regions). PHYSICAL EXAM: BP 118/70 Ht 5' 8 (1.73m) Wt 212 lb (96.2kg) LMP 05/19/2024 BMI 32.24 kg/(m^2). GENERAL: pleasant in no apparent distress DERMATOLOGY: Normal, without lesions, non-icteric, and non-hirsute NECK: Supple and full range of motion CHEST: Normal inspiratory effort BREAST: deferred ABDOMEN: soft, non-tender, and no masses NEURO: alert and oriented x3,exam grossly non-focal ASSESSMENT/PLAN: 1. History of vacuum extraction assisted delivery - 2. Low lying placenta nos or without hemorrhage, second trimester 3. Obesity affecting in second trimester, unspecified obesity type 4. Multigravida of advanced maternal age in second trimester 5. Rh negative state in antepartum period 6. Major depressive disorder with current active episode, unspecified depression episode severity, unspecified whether recurrent - 7. Screening for diabetes mellitus 8. Encounter for supervision of high risk multigravida of advanced maternal age, antepartum 9. History of infection 10. with care elsewhere in second trimester ([facility]) - ICD9: V22.1, ICD10: Z34.92 PLAN: 1) Patient oriented to practice. Discussed nutrition, folic acid supplementation, dietary guidelines, exercise, smoking, alcohol, caffeine, and drug use. Discussed how to access Your guide to a health and the Supervisor Line Department. Reviewed midwifery and rn building services that are available. 2) Screening: Hemoglobin A1C: declined Baby Aspirin: The patient has been counseled about the potential benefits of low dose aspirin in and our recommendation that this be offered to all patients, regardless of whether they meet the high risk criteria specified above. She Accepts Aneuploidy Screening: Discussed aneuploidy screening, nuchal translucency/first trimester early anatomy ultrasound and NIPT. The risks/benefits and limitations of NIPT/aneuploidy screening were reviewed including the potential for false negative and false positive results. The availability of genetic counseling was reviewed. Information on aneuploidy screening was provided. The patient declines screening Myriad Carrier Screening: Discussed myriad carrier screening. We discussed the availability of professional-society guided carrier screening and reviewed the conditions screened and limitations of screening. The availability of genetic counseling was reviewed. Information on carrier screening was provided. The patient Declines 3) Patient offered option of Virtual Visits. Patient prefers in person visits. Follow up in 3 weeks for MARINA with GCT or sooner prn. Prabha Quevedo APRN.CNM documented in this encounter [facility] 11-15-2024 Instructions Siri Womack MA - 11/15/2024 3:25 PM EDT Please select the following link to access the [facility] Your Guide to a Healthy . [email or web address] documented in this encounter [facility] 10-20-2024 Evaluation note Diagnosis Onset Date Resolution AMA (advanced maternal age) multigravida 35+ acute October 9:19am Depression acute October 20 9:19am Low lying placenta, antepartum acute October 20, 2024 9:19am Obesity affecting acute October 20, 2024 9:19am acute October 20 9:19am Rh negative status during acute October 20 9:19am Supervision of high-risk acute October 20, 2024 9:19am [facility] Work Phone: [phone] Evaluation note* Diagnosis Onset Date Resolution Status Admit Date AMA (advanced maternal age) multigravida 35+ acute October 20 9:19am Depression acute October 20 9:19am Low lying placenta, antepartum acute October 20, 2024 9:19am Obesity affecting acute October 20, 2024 9:19am acute October 20 9:19am Rh negative status during acute October 20, 2024 9:19am Supervision of high-risk acute October 20, 2024 9:19am 38 weeks gestation of acut e February 14, 2025 10:44am AMA (advanced maternal age) multigravida 35+ acute February 14 10:44am False labor after 37 complet ed weeks of gestation acute February 14, 025 10:44am Obesity affecting acute February 14, 2025 10:44am Supervision of high-risk acute February 14, 2025 10:44am [facility] Work Phone: 1(289) 366-299103-17-2024 Discharge summary Author Lizzeth Rodriguez [facility] September 27, 2023 9:51am Note Date/Time September 27, 2023 9:4 4am [facility] Medical Records Department [address] [place] [address] Discharge Summary 09/27/23 0938 MR#: [id number] Acct: [id number] Name: ANAHY ESCALANTE Rep #:[id number] : 1990 32 From: Lizzeth Abarca DO PCP: SPEEDY Taylor Status:ADM IN Location: [id number] Providers Date of Admission: 09/24/23 Primary Care Physician: SPEEDY Taylor Reason For Visit: VAGINAL DELIVERY Diagnosis Discharge Diagnosis (1) Status post vaginal delivery: Status: Acute (2) Chorioamnionitis: Status: Acute Code(s): O41.1290 - Chorioamnionitis, unspecified trimester, not applicable or unspecified (3) Rh negative status during : Status: Acute Code(s): O26.899 - Other specified related conditions, unspecified trimester; Z67.91 - Unspecified blood type, Rh negative Qualifiers: Trimester: second trimester Qualified Code(s): O26.892 - Other specified related conditions, second trimester; Z67.91 - Unspecified blood type, Rh negative (4) Depression: Status: Acute Code(s): F32.A - Depression, unspecified Qualifiers: Depression Type: other depression Qualified Code(s): F32.89 - Other specified depressive episodes Plan s/p PPD # 1 1. routine post delivery care- plan to continue ampicillin for rest of today to complete 24 hours- for chorioamnionitis (2 more doses) 2. breast feeding- support given 3. rh negative- rhogam workup ordered 4. rubella immune 5. continue zoloft Medications at Discharge Home Medications sertraline 50 mg tablet (Zoloft) 75 mg PO DAILY depression 12/18/22 multivitamin no.47-iron fum 27 mg-folate no.1 1 mg-dha 300 mg capsule (PNV-DHA)1 cap PO DAILY 02/24/23 aspirin 81 mg tablet,delayed release (Adult Aspirin Regimen) 81 mg PO DAILY hx covid 24 Hospital Course Operations None Procedures - (vacuum assisted vaginal delivery ) Summary of Care Provided Minutes Spent on Discharge: 25 Hospital Course: The patient was admitted on 09/24/23 for induction of labor due to decelerations in the office. She delivered on 09/24/24 via vacuum assisted delivery due to exhaustion. On post day #1 she was recovering well but requiring assistance with breast feeding. On post day #2 she was tearful due to some difficulty and mild perineal pain but ready for discharge to [facility] while baby is still being monitored in the NICU Physical Exam Const alert, oriented x3 and no apparent distress General Appearance: cooperative and comfortable Resp normal respiratory effort Cardio regular rate GI normal to inspection, nondistended, normoactive bowel sounds GI Narrative: uterus is firm below umbilicus Palpation: soft Back/Spine no CVA tenderness and thoraco-lumbar ROM normal Extremity normal to inspection, no clubbing, cyanosis or edema, no calf tenderness and no pedal edema Psych mental status grossly normal, thought process normal, cooperative, affect normal, speech normal, activity/motor behavior normal, denies homicidal ideationand denies suicidal ideation Weight / BMI Weight Weight: 224 lb 3.362 oz Body Mass Index (BMI) 34.0 ABG / Lab / Microbiology Data 09/25/23 23:30 D/C Instructions Discharge Diet: No restrictions May resume sexual activity in: 4-6 weeks Call your doctor if your incision/area has: Continuous Slow Oozing, Sudden Increased Bleeding, Increased Pain/ Swelling, Increased Redness and Foul SmellingDischarge Please Follow Up With: Lizzeth Abarca DO When: Call [phone] to make an appointment with your doctor in 6 weeks. If you had elevated blood pressure or 4th degree laceration, you will need to be seen in 2 weeks. Meaningful Use Info Meaningful Use Diagnoses (Choose all that apply): None applicable Discharge Plan Admission Admit Date/Time: 09/24/23 13:40 Attending Provider: Lizzeth Abarca Primary Care Provider: Noemi Dallas NP Discharge Orders/Prescriptions Prescriptions: Continued sertraline [Zoloft] 50 mg tablet 75 mg PO DAILY PNV-DHA 27 mg iron-1 mg -300 mg capsule 1 cap PO DAILY aspirin [Adult Aspirin Regimen] 81 mg tablet,delayed release (DR/EC) 81 mg PO DAILY Referrals / Follow Up: Noemi Dallas TIRE SORTER, TIRE SORTER-C [Primary Care Provider] - Disposition Disposition (needs filled in before D/C Order can be placed): Home, Self Care 09/27/23 0951 <Electronically signed by Lizzeth Abarca DO> Cosigner Signature (if applicable): CC: SPEEDY Dallas; Dr. Lizzeth Abarca DO~ Signed [facility] Work Phone: 1(618) 474-145003-16-2024 Progress note Author Lizzeth Rodriguez [facility] September 26, 2023 9:59am Note Date/Time September 26, 2023 9:5 9am [facility] Medical Records Department [address] [place] [address] Progress Note - OBGYN 09/26/23 0957 MR#: [id number] Acct: [id number] Name: ANAHY ESCALANTE Rep #:[id number] : 1990 32 From: Lizzeth Abarca DO PCP: Noemi Dallas, TIRE SORTER-C Status:ADM IN Location: [id number] Subjective Subjective Patient doing well without complaints. Tolerating PO. Ambulating and voiding without difficulty. Feeding well. Denies chest pain, shortness of breath, calf pain/swelling, fevers, chills, lightheadedness. Objective Data Objective Data Vital Signs: Vital Signs Temp Pulse Resp BP Pulse Ox O2 Del Method 99.1 F 85 16 107/74 97 Room Air 09/26/23 07:49 09/26/23 07:49 09/26/23 07:49 09/26/23 07:49 09/26/23 07:49 09/26/23 07:49 Oxygen Delivery Method Room Air Weight: 224 lb 3.362 oz Body Mass Index (BMI) 34.0 Intake & Output: Intake and Output for Last 24 Hours 09/24/23 09/25/23 09/26/23 23:59 23:59 23:59 Intake Total 500 / 500 3817.16 / 3817.16 908 / 908 Output Total 1200 / 1200 2150 / 2150 1700 / 1700 Balance -700 / -700 1667.16 / 1667.16 -792 / -792 Lab / Micro Data 09/25/23 23:30 Labs: Laboratory Results - last 24 hr 09/25/23 23:30: WBC 19.7 H, RBC 3.84 L, Hgb 11.1 L, Hct 33.0 L, MCV 85.9, MCH 28.9, MCHC 33.6, RDW Std Deviation 40.5, RDW Coeff of Linnea 13.2, Plt Count 199, MPV 10.1, Immature Gran % (Auto) 0.600, Neut % (Auto) 87.7 H, Lymph % (Auto) 6.1L, [place] % (Auto) 5.2, Eos % (Auto) 0.1, Baso % (Auto) 0.3, Absolute Neuts (auto)17.3 H, Absolute Lymphs (auto) 1.20, Nucleated RBC % 0 ROS Constitutional Constitutional: Denies chills, fatigue, fever(s), poor appetite or weakness Eyes Eyes: Denies blurry vision, change in vision, seeing flashes or spots in vision ENT HEENT: Denies dizziness, headache(s), loss taste/smell or sore throat Cardiovascular Cardiovascular: Denies chest pain, dizziness, dyspnea, irregular heart rhythm, palpitations or rapid heart rate Respiratory/Chest Respiratory/Chest: Denies chest tightness, cough, dyspnea or breast pain Gastrointestinal Gastrointestinal: Denies abdominal pain, constipation or vomiting Genitourinary Genitourinary: Denies dysuria or flank pain Musculoskeletal Musculoskeletal: Denies difficulty walking, joint pain, limited range of motion or numbness Neurologic Neurologic: Denies abnormal movements, abnormal speech, dizziness, numbness, seizure-like activity or syncope Psychiatric Psychiatric: Denies anxiety, behavioral changes, change in appetite, confusion, depression or suicidal thoughts Physical Exam Const alert, oriented x3 and no apparent distress General Appearance: cooperative and comfortable Resp normal respiratory effort Cardio regular rate GI normal to inspection, nondistended, normoactive bowel sounds GI Narrative: uterus is firm below umbilicus Palpation: soft Back/Spine no CVA tenderness and thoraco-lumbar ROM normal Extremity normal to inspection, no clubbing, cyanosis or edema, no calf tenderness and no pedal edema Psych mental status grossly normal, thought process normal, cooperative, affect normal, speech normal, activity/motor behavior normal, denies homicidal ideationand denies suicidal ideation Assessment & Plan (1) Status post vaginal delivery: (2) Chorioamnionitis: (3) Rh negative status during : QUALIFIERS: Trimester: second trimester Qualified Code(s): O26.892 - Other specified related conditions, second trimester; Z67.91- Unspecified blood type, Rh negative COMMENT: NO rhogam. negative/lab scanned to her chart (4) Depression: QUALIFIERS: Depression Type: other depression Qualified Code(s): F32.89 - Other specified depressive episodes COMMENT: zoloft, counseling encouraged. stable PLAN: Plan s/p PPD # 1 1. routine post delivery care- plan to continue ampicillin for rest of today to complete 24 hours- for chorioamnionitis (2 more doses) 2. breast feeding- support given 3. rh negative- rhogam workup ordered 4. rubella immune 5. continue zoloft 09/26/23 0959 <Electronically signed by Lizzeth Abarca DO> Cosigner Signature (if applicable): CC: ~ Signed [facility] Work Phone: 1(218) 392-524703-16-2024 Discharge summary Author Lizzeth Rodriguez [facility] September 25, 2023 11:28pm Note Date/Time September 25, 2023 11: 28pm [facility] Medical Records Department [address] [place] [address] Instructions for Home/Discharge Instructions 09/25/232327 MR#: [id number] Acct: [id number] Name: ANAHY ESCALANTE Rep #:[id number] : 1990 32 From: Lizzeth Abarca DO PCP: SPEEDY Taylor Status:ADM IN Discharge Instructions Diet Discharge Diet: No restrictions Activity Discharge Activity: Return to Normal Activity, May Not Drive (while taking narcotic pain medications.) and May Shower May resume sexual activity in: 4-6 weeks Dressing / Incision Call your doctor if your incision/area has: Continuous Slow Oozing, Sudden Increased Bleeding, Increased Pain/ Swelling, Increased Redness and Foul Smelling Discharge Follow Up Care Please Follow Up With: Lizzeth Abarca DO When: Call [phone] to make an appointment with your doctor in 6 weeks. If you had elevated blood pressure or 4th degree laceration, you will need to be seen in 2 weeks. Test Results: Test results from this visit will be discussed in further detail at your follow- up appointment, if applicable. Discharge Plan Admission Admit Date/Time: 09/24/23 13:40 Attending Provider: Lizzeth Abarca Primary Care Provider: Noemi Dallas NP Discharge Orders/Prescriptions Prescriptions: No Action sertraline [Zoloft] 50 mg tablet 75 mg PO DAILY PNV-DHA 27 mg iron-1 mg -300 mg capsule 1 cap PO DAILY aspirin [Adult Aspirin Regimen] 81 mg tablet,delayed release (DR/EC) 81 mg PO DAILY Referrals / Follow Up: Noemi Dallas NP, TIRE SORTER-C [Primary Care Provider] - 09/25/232327<Electronically signed by Lizzeth Abarca DO>Lizzeth Abarca DO CC: SPEEDY Dallas ~ Signed [facility] Work Phone: [phone] Procedure [facility] 09-25-2023 Progress note Author Lizzeth Rodriguez [facility] September 25, 2023 5:06pm Note Date/Time September 25, 2023 5:0 6pm [facility] Medical Records Department [address] [place] [address] Progress Note - OBGYN 09/25/231703 MR#: [id number] Acct: [id number] Name: ANAHY ESCALANTE Rep #:[id number] : 1990 32 From: Lizzeth Abarca DO PCP: Noemi Dallas TIRE SORTER-C Status:ADM IN Location: [id number] Subjective Subjective pt is sitting up in bed. still very comfortable. Since my last in person visit she started having variable decelerations and an amnioinfusion was ordered. Since then the tracing is improved current tracing: FHT: Moderate variability reactive mild variable decelerations, not persistent category II tracing Congress: Q1 min- 5min Contractions cx: /-1 reviewed tracing abnormalities since last note: improved variable decels A/P: pitocin was stopped and restarted at half (currently at 10) continue current management. Objective Data Objective Data Vital Signs: Vital Signs Temp Pulse Resp BP Pulse Ox 98.3 F 90 18 124/68 H 98 09/25/23 16:55 09/25/23 16:57 09/25/23 16:55 09/25/23 16:57 09/25/23 13:56 Weight: 224 lb 3.362 oz Body Mass Index (BMI) 34.0 Intake & Output: Intake and Output for Last 24 Hours 09/23/23 09/24/23 09/25/23 23:59 23:59 23:59 Intake Total 500 / 500 941.12 / 941.12 Output Total 1200 / 1200 1350 / 1350 Balance -700 / -700 -408.88 / -408.88 Lab / Micro Data 09/24/23 14:50 09/25/231705 <Electronically signed by Lizzeth Abarca DO> Cosigner Signature (if applicable): CC: ~ Signed [facility] Work Phone: 1(257) 929-642803-15-2024 Progress note Author Lizzeth [facility] September 25, 2023 1:13pm Note Date/Time September 25, 2023 12: 54pm [facility] Medical Records Department [address] [place] [address] Progress Note - OBGYN 09/25/23 1251 MR#: [id number] Acct: [id number] Name: ANAHY ESCALANTE Rep #:[id number] : 1990 32 From: Lizzeth Abarca DO PCP: Noemi Dallas TIRE SORTER-C Status:ADM IN Location: [id number] Subjective Subjective pt is comfortable with epidural. current tracing: FHT: Moderate variability reactive no current decelerations category I tracing Congress: q 2-4 min Contractions MVU 200-220 Cx: tight 3-4/80/-1 clear fluid present. A/P: 38 weeks, iol for decel and persistent decreased movement. increasing pitocin now. arom was at 6:30 today and pit was started at 2 am. it has been 6 hours since arom and 11 hours of pitocin with no cervical change. will re-evaluate in 2 hours. Objective Data Objective Data Vital Signs: Vital Signs Temp Pulse Resp BP Pulse Ox 96.7 F L 90 18 115/70 98 09/25/23 11:30 09/25/23 12:45 09/25/23 11:30 09/25/23 12:45 09/25/23 11:41 Weight: 224 lb 3.362 oz Body Mass Index (BMI) 34.0 Intake & Output: Intake and Output for Last 24 Hours 09/23/23 09/24/23 09/25/23 23:59 23:59 23:59 Intake Total 500 / 500 810.09 / 810.09 Output Total 1200 / 1200 1350 / 1350 Balance -700 / -700 -539.91 / -539.91 Lab / Micro Data 09/24/23 14:50 Labs: Laboratory Results - last 24 hr 09/24/23 14:50: WBC 9.7, RBC 4.52, Hgb 12.7, Hct 38.3, MCV 84.7, MCH 28.1, MCHC 33.2, RDW Std Deviation 39.7, RDW Coeff of Linnea 13.1, Plt Count 236, MPV 10.1, Immature Gran % (Auto) 0.500, Neut % (Auto) 69.8, Lymph % (Auto) 22.7, [place] % (Auto) 5.9, Eos % (Auto) 0.8, Baso % (Auto) 0.3, Absolute Neuts (auto) 6.7, Absolute Lymphs (auto) 2.19, Nucleated RBC % 0, Syphilis Total Ab Non-reactive, Blood Type A NEGATIVE, Antibody Screen NEGATIVE 09/25/23 1313 <Electronically signed by Lizzeth Abarca DO> Cosigner Signature (if applicable): CC: ~ Signed [facility] Work Phone: [phone] 609-638003-14-2024 History and physical note Author Ivette Cornell [facility] September 24, 2023 8:24pm Note Date/Time September 24, 2023 8:2 4pm [facility] Medical Records Department [address] [place] [address] H&P Exam - RN CLINICAL TRIALS 09/24/232020 MR#: [id number] Acct: [id number] Name: ANAHY ESCALANTE Rep #:[id number] : 1990 32 From: Ivette walton MD PCP: SPEEDY Taylor Status:ADM IN Location: HF162-3 HPI - General General Date of Admission: 09/24/23 HPI Narrative ANAHY ESCALANTE, is a 32 F who presents in early labor, with decreased movement and intermittent variables. now resolving into a category I tracing. Maternal Data Information RICHARD Calculator Estimated Delivery Date Method Current WG Current Estimate 10/06/23 LMP (Certain) 38w 2d Other Estimates 10/08/23 Ultrasound #1 38w 0d PFSH PFS Medical History (Updated 09/24/23 @ 20:[address] Ivette Cornell MD) Headache Home Medications sertraline 50 mg tablet (Zoloft) 75 mg PO DAILY depression 12/18/22 [History Last Taken 09/23/23 21:00] multivitamin no.47-iron fum 27 mg-folate no.1 1 mg-dha 300 mg capsule (PNV-DHA)1 cap PO DAILY 02/24/23 [History Last Taken 09/23/23 21:00] aspirin 81 mg tablet,delayed release (Adult Aspirin Regimen) 81 mg PO DAILY hx covid 09/24/23 [History Last Taken 09/23/23 21:00] Allergy/AdvReac Type Severity Reaction Status Date / Time codeine Allergy Severe Vomiting Verified 09/24/23 14:29 Family History Grandmother Breast cancer Father Graves disease Other Heart disease Surgical History History of placement of ear tubes History of tonsillectomy [place] teeth removed Social History adopted: No household members: spouse current occupational status: employed 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 current occupational exposures/hazards: No pets and animals: Yes pets and animals: dog(s) history of recent travel: No sexually active: Yes Smoking Status: Never smoker alcohol intake: never substance use type: does not use well-balanced diet: daily or most days caffeine: Yes Type: coffee Number of servings: 1 eating out: 1-3 times/week during the past year weight has: remained stable what type of physical activity do you participate in: walking and yoga frequency: 3-4 times per week duration: 30-45 minutes/day marie/yarsani: Catholic seatbelt use: always do you feel safe at home: Yes additional social history: Spouse - 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 cut cord/dad catch: maybe : yes PP control planned: discussed discussed possible routes of delivery and associated risks: [] special requests: [] Plans Covid status: + test 06/22/23 Flu vaccine: given Tdap vaccine: given Rhogam: no/ Rh neg. LARC form signed: yes movement and labor precautions reviewed. Problem list reviewed and updated with the most current plan of care details and appropriate orders placed. Relevant counseling for the gestational age provided. Continue routine care and follow up unless otherwise noted in visit notes/problem list details OB Flowsheet Initial Weight: Not Recorded Date -?-?-?-?-?-?-?-?-?-?-?-?- EGA Weight BP Urine Prot -?-?-?-?-?-?-?-?-?-?-?-?- Glucose FHR FuHt Pres Dilation -?-?-?-?-?-?-?-?-?-?-?-?- Effaced St Visit Note 03/05/23 -?-?-?-?-?-?-?-?-?-?-?-?- 9w 2d 213 lb 6 oz 135/95 -?-?-?-?-?-?-?-?-?-?-?-?- 160 -?-?-?-?-?-?-?-?-?-?-?-?- SM- CRL 2 cm con s with LMP 04/03/23 -?-?-?-?-?-?-?-?-?-?-?-?- 13w 3d 210 lb 8 oz 130/78 Nega tive -?-?-?-?-?-?-?-?-?-?--?-?- Negative -?-?-?-?-?-?-?-?-?-?-?-?- KW- no vb/crampi ng. flu shot today. no concerns. FHT visualized with handheld US. 05/05/23 -?-?-?-?--?-?-?-?-?-?-?-?- 18w 0d 209 lb 8 oz 122/82 Nega tive -?-?-?-?-?-?-?-?-?-?-?-?- Negative 144 -?-?-?-?-?-?-?-?-?-?-?-?- MH-Nausea persis ts, managing better with reglan and zofran. Needs anatomy US scheduled. No VB. No flutters yet. Active IUP on brief US 06/03/23 -?-?-?-?-?-?-?-?-?-?-?-?- 22w 1d 214 lb 8 oz 138/82 Nega tive -?-?-?-?-?-?-?-?-?-?-?-?- Negative 145 -?-?-?-?-?-?-?-?-?-?-?-?- SM- no vb mild c ramping, nausea improving 07/03/23 -?-?-?-?--?-?-?-?-?-?-?-?- 26w 3d 214 lb 8 oz 115/72 Nega tive -?-?-?-?-?-?-?-?-?-?-?-?- Negative 140 27 -?-?-?-?-?-?-?-?-?-?-?-?- JV- no lof, vagi nal bleeding, or dec fm. no complaints. is rh negative also so will not need rhogam. normal 28 week labs. 07/20/23 -?-?-?-?-?-?-?-?-?-?-?-?- 28w 6d 219 lb 4 oz 112/72 Nega tive -?-?-?-?-?-?-?-?-?-?-?-?- Negative 131 28 -?-?-?-?-?-?-?-?-?-?-?-?- MH-no VB, LOF. G ood Fm. tdap, larc. 08/03/23 -?-?-?-?-?-?-?-?-?--?-?-?- 30w 6d 218 lb 112/70 Negative -?-?-?-?-?-?-?-?-?-?-?-?- Negative 140 30 -?-?-?-?-?-?-?-?-?-?-?-?- LC- no vb/ctx/lo f. good fm. decreased fluids today. LC- no vb/ctx/lof. good fm. decreased PO fluids today. had audible decel in the office x3, NST with variable. sent to for IV hydration, monitoring and BPP. 08/05/23 -?-?-?-?-?-?-?-?-?-?-?-?- 31w 1d 217 lb 2 oz 126/86 -?-?-?-?-?-?-?-?-?-?-?-?- 140 -?-?-?-?-?-?-?-?-?-?-?-?- JV- pt seen toda y for dizziness and tension headache like feeling that started yesterday. heart tones are regular rate without audible decels but sounds slightly irregular sounding. ordering for MFM evaluation and possible echo of baby. ordering labs (cbc, cmp, vit d, thiamine, tsh, b12) 08/17/23 -?-?-?-?-?-?-?-?-?-?-?-?- 32w 6d 222 lb 2 oz 122/75 Nega tive -?-?-?-?-?-?-?-?-?-?-?-?- Negative 168 32 -?-?-?-?-?-?-?-?-?-?-?-?- JV- no lof, vagi nal bleeding, or dec fm. She is a little tearful today about weight gain and beka -moralez contractions. doing better with compression stockings and 100 oz of fluid a day. 08/24/23 -?-?-?-?-?-?-?-?-?-?-?-?- 33w 6d 223 lb 6 oz 126/82 Nega tive -?-?-?-?-?-?-?-?-?-?-?-?- Negative 145 33 -?-?-?-?-?-?-?-?-?-?-?-?- MH-NO VB, LOF. G ood FM. Last 2 days very dizzy, nauseous. Feeling extremely thirsty. No reg CTX. Headache off and on . No vision changes. Labs ordered. 08/31/23 -?-?-?-?-?-?-?-?-?-?-?-?- 34w 6d 222 lb 143/83 131/85 Negative -?-?-?-?-?-?-?-?-?-?-?-?- Negative 160 35 Cephalic 0 .5 -?-?-?-?-?-?-?-?-?-?-?-?- Sm- no vb lof go od fm co irregular ctx 09/08/23 -?-?-?-?-?-?-?-?-?-?-?-?- 36w 0d 225 lb 138/89 119/80 Negative -?-?-?-?-?-?-?-?-?-?-?-?- Negative 140 36 Cephalic 0 -?-?-?-?-?-?-?-?-?-?-?-?- kw- no vb/lof/ct x. good fm. no ambrose/dizziness/bv. 09/14/23 -?-?-?-?-?-?-?-?-?-?-?-?- 36w 6d 226 lb 2 oz 130/85 Nega tive -?-?-?-?-?-?-?-?-?-?-?-?- Negative 130 37 Cephalic -?-?-?-?-?-?-?-?-?-?-?-?- JV- anahy co mplains of dizziness, stars in eyes, and headaches again. They had stopped for a couple of weeks and back again. she also feels wet most of the time. rom plus collected and pIH labs repeated. pt declines cervix check. 09/21/23 -?-?-?-?-?-?-?-?-?-?-?-?- 37w 6d 226 lb 2 oz 130/85 -?-?-?-?-?-?-?-?-?-?-?-?- 180 38 Cephalic -?-?-?-?-?-?-?-?-?-?-?-?- SM- no vb lof go od fm no regular ctx, nst FOR TACHYCARDIA NST FHR Rate Baby A Baseline: 150 Variability:: Moderate Accelerations:: 15 x 15 Decelerations:: None NST Reactive:: Yes FHR Category:: Category II (initially with intermittent variables) Uterine Activity:: q3-5 ROS Constitutional Constitutional: Reports systems reviewed and no addt'l complaints, except as documented ENT HEENT: Reports systems reviewed and no addt'l complaints, except as documented Cardiovascular Cardiovascular: Reports systems reviewed and no addt'l complaints, except as documented Respiratory/Chest Respiratory/Chest: Reports systems reviewed and no addt'l complaints, except as documented Gastrointestinal Gastrointestinal: Reports systems reviewed and no addt'l complaints, except as documented and nausea; Denies abdominal pain Genitourinary Genitourinary: Reports systems reviewed and no addt'l complaints, except as documented, contractions Details: present and frequency (regular ) and movement Details: present Musculoskeletal Musculoskeletal: Reports systems reviewed and no addt'l complaints, except as documented Integumentary Integumentary: Reports as per HPI Neurologic Neurologic: Reports systems reviewed and no addt'l complaints, except as documented Endocrine Endocrinology: Reports systems reviewed and no addt'l complaints, except as documented Vital Signs Vital Signs Vital Signs: 09/24/23 13:05 09/24/23 13:05 09/24/23 13:06 Temperature Temperature Source Pulse Rate 120 H 108 H Respiratory Rate Blood Pressure 120/81 H BP Systolic 120 BP Diastolic 81 Pulse Ox 09/24/23 13:06 09/24/23 15:09 09/24/23 15:09 Temperature Temperature Source Pulse Rate 96 Respiratory Rate Blood Pressure 132/89 H BP Systolic 132 BP Diastolic 89 Pulse Ox 97 09/24/23 15:09 09/24/23 15:10 09/24/23 15:09 Temperature Temperature Source Temporal Pulse Rate 103 H Respiratory Rate 18 Blood Pressure BP Systolic BP Diastolic Pulse Ox 09/24/23 15:10 09/24/23 15:09 09/24/23 16:19 Temperature 98.9 F Temperature Source Pulse Rate Respiratory Rate Blood Pressure 127/75 H BP Systolic 127 BP Diastolic 75 Pulse Ox 97 09/24/23 16:19 09/24/23 16:19 09/24/23 16:19 Temperature Temperature Source Temporal Pulse Rate 86 Respiratory Rate Blood Pressure BP Systolic BP Diastolic Pulse Ox 97 09/24/23 16:19 09/24/23 16:19 09/24/23 16:19 Temperature 97.8 F Temperature Source Temporal Pulse Rate Respiratory Rate 18 Blood Pressure BP Systolic BP Diastolic Pulse Ox 09/24/23 16:19 09/24/23 16:19 09/24/23 17:57 Temperature 97.8 F Temperature Source Temporal Pulse Rate Respiratory Rate 18 Blood Pressure BP Systolic BP Diastolic Pulse Ox 09/24/23 17:57 09/24/23 17:57 09/24/23 17:57 Temperature Temperature Source Pulse Rate 91 Respiratory Rate 18 Blood Pressure 138/67 H BP Systolic 138 BP Diastolic 67 Pulse Ox 09/24/23 17:57 09/24/23 19:32 09/24/23 19:33 Temperature 98.1 F Temperature Source Pulse Rate 94 Respiratory Rate Blood Pressure 139/84 H BP Systolic 139 BP Diastolic 84 Pulse Ox 09/24/23 19:32 09/24/23 19:33 09/24/23 19:29 Temperature Temperature Source Temporal Pulse Rate 86 Respiratory Rate Blood Pressure BP Systolic BP Diastolic Pulse Ox 97 09/24/23 19:29 09/24/23 19:29 Temperature 97.5 F L Temperature Source Pulse Rate Respiratory Rate 16 Blood Pressure BP Systolic BP Diastolic Pulse Ox Weight Weight: 224 lb 3.362 oz Body Mass Index (BMI) 34.0 Physical Exam Const alert, oriented x3 and healthy appearing Constitutional Narrative: uncomfortable with contractions HEENT normocephalic and moist oral mucous membranes Head and Scalp: atraumatic Neck full ROM, no lymphadenopathy, supple and thyroid normal General: trachea midline Thyroid: thyroid normal Lymph Lymphatic: no lymphadenopathy noted Chest inspection of chest normal Resp normal respiratory effort Cardio regular rate GI normal to inspection, nondistended, normoactive bowel sounds, soft to palpation and non-tender Inspection: gravid external exam normal Bimanual Exam - Vag & Uterus: uterus non-tender Manual OB Exam: estimated gestational size appropriate, presentation cephalic, dilated, effaced and station Extremity normal to inspection General Extremity: Negative for edema Skin no rashes or lesions noted Neuro deep tendon reflexes 2+ bilaterally Motor Exam: strength 5/5 throughout and clonus absent Psych mental status grossly normal Labs Labs Labs: Blood Type A NEGATIVE Antibody Screen NEGATIVE Hct 38.3 % (37-47) Hgb 12.7 g/dL (12.0-15.0) Pap Smear Negative Obstetrics Ultrasound Syphilis Total Ab Non-reactive Rubella IgG Antibody Reactive (Nonreactive) Hep Bs Antigen Non-Reactive (Nonreactive) Hepatitis C Antibody Non-Reactive (Nonreactive) Chlamydia DNA (TRISTIAN) Negative (Negative) N.gonorrhoeae DNA (TRISTIAN) Negative (Negative) HIV 1&2 Antibody Non-Reactive (Nonreactive) Glucose 1 Hr 50 gm 120 mg/dL (70-140) Group B Strep DNA Negative (Negative) Assessment & Plan (1) COVID-19 affecting in second trimester: COMMENT: asa 81 mg daily (2) Rh negative status during : QUALIFIERS: Trimester: second trimester Qualified Code(s): O26.892 - Other specified related conditions, second trimester; Z67.91 - Unspecified blood type, Rh negative COMMENT: NO rhogam. negative/lab scanned to her chart (3) Nausea/vomiting in : COMMENT: supportive care ordered, failed doxylamine, doing well with zofran (4) Depression: QUALIFIERS: Depression Type: other depression Qualified Code(s): F32.89 - Other specified depressive episodes COMMENT: zoloft, counseling encouraged. stable (5) Supervision of high-risk : QUALIFIERS: Trimester: third trimester Qualified Code(s): O09.93 - Supervision of high risk , unspecified, third trimester COMMENT: PRR , RICHARD 10/06/23, surprise Renato (6) : QUALIFIERS: Weeks of gestation: 37 weeks Qualified Code(s): Z3A.37 - 37 weeks gestation of COMMENT: Neg GBS declined genetic, ntd, & carrier testing. anatomy reviewed, normal anatomy (7) Variable heart rate decelerations, antepartum: COMMENT: proceed with delivery (8) Decreased movements in third trimester: PLAN: Plan exp management followed by kohler bulb placed due to minimal change, and pitocin PRN. gbs neg 09/24/232023 <Electronically signed by Ivette Cornell MD> Cosigner Signature (if applicable): CC: TIRE SORTERTrey Dallas; Dr. Ivette Cornell MD~ Signed [facility] Work Phone: 1(384) 734-579201-20-2023 History of Present illness Narrative* Anahy is a 31 yo female, her etoday for ER follow up. She was treated in ER on 08/01/2022 for nausea and rapid HR. Testing was negative for acuet disease process, she was treated for dehydration with 1 liter of IVF and Zofran for nausea. * She continues to complain of nausea and reports pain/pressure under breast bone (points to epigastric), reports she gets a burning sensation with eating. * sometime pain radiates to right upper abdomen. * reports nausea * Denies: vomiting, constipation or diarrhea * Reviewed labs and ER work up including: troponin, lipase, liver panel, BMP, CBC, PT/INR, UA, CXR, and blood cultures. All tests were normal. [facility] Work Phone: [phone]) 801-325905-14-2022 History of Present illness Narrative* Anahy is a 31 yo female here today with complaints of severe cough, sore throat, and sinus drainage. She reports Sx onset; sore throat on Thursday, cough started on Thursday, hoarseness started on Thursday. Low grade temp 100.2 on Thursday. 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 Unsure if been around anyone else ill. * Is COVID vaccinated and boosted times 1. She has not had COVID, is unaware if she has been around anyone with COVID [facility] Work Phone: 1(221) 360-291610-12-2021 NoteAccession #: [id number] Date of Procedure: 04/23/2021 Pathologist: [facility], Cytology Date Reported: 05/01/2021 Date [...] patient?s Pap test results. Please refer to ASC current guidelines for the use of HPV DNA testing, result interpretation, and patient management. The performance of this test was verified by the Molecular Diagnostic Laboratory at [facility]. The lab is certified under the Clinical Laboratory Amendments of 1988 (CLIA 88) as qualified to perform high complexity clinical laboratory testing. This specimen has been analyzed by the [employer]p Imaging System ([employer] an automated imaging and review system, which assists the laboratory in evaluating cells on ThinPrep Pap tests. Following automated imaging, selected leonard from every slide were reviewed by a media consultant and/or pathologist. Electronically Signed Out By [facility], Cytology//ELC By the signature on [...] Source of Specimen A: THINPREP PAP CERVICAL [facility] Department of Pathology [id number] [address]Comment on above:Performed By: #### C #### [facility] Cytology [id number] [place] [address] [id number] History of Present illness Narrative* Erma Haskins, - 12/18/2020 9:40 AM EDT Anahy Escalante 30 y.o. female CHIEF COMPLAINT: Headache HISTORY OF PRESENT ILLNESS: Anahy follows on 12/18/2020. Our initial evaluation was 11/02/2020. She is a 30-year-old woman with a long-standing history of episodic migraine with aura and persistent headache since mid September 2020. She has had 'periods'; of what she calls long standing daily headaches in the past. At her initial visit she had had 2 pulses of steroids which did reduce the headaches temporarily. The headaches worse very severe more than her usual pattern of headache which was one per week. There had been no recent trauma, though she did have a medication change when sertraline was increased to 100 mg in august 2020. 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 SOCIAL HISTORY: Social History Socioeconomic History Marital status: Spouse name: Not on file Number of children: Not on file Years of education: Not on file Highest education level: Not on file Occupational History Not on file Tobacco Use Smoking status: Not on file Substance and Sexual Activity Alcohol use: Not on file Drug use: Not on file Sexual activity: Not on file Other Topics Concern Not on file Social History Narrative Not on file Social Determinants of Health Financial Resource Strain: Difficulty of Paying Living Expenses: Food Insecurity: Worried About Running Out of Food in the Last Year: Ran Out of Food in the Last Year: Transportation Needs: Lack of Transportation (Medical): Lack of Transportation (Non-Medical): Physical Activity: Days of Exercise per Week: Minutes of Exercise per Session: Stress: Feeling of Stress : Social Connections: Frequency of Communication with Friends and Family: Frequency of Social Gatherings with Friends and Family: Attends Yazidi Services: Active Member of Clubs or Organizations: Attends Club or Organization Meetings: Marital Status: Intimate Partner Violence: Fear of Current or Ex-Partner: Emotionally Abused: Physically Abused: Sexually Abused: OCCUPATIONAL HISTORY: OUTPATIENT MEDICATIONS PRIOR TO VISIT: Current Outpatient Medications: hydrOXYzine hcl 10 MG tablet, TAKE 1 TO 2 TABLETS BY MOUTH EVERY 4 TO 6 HOURS NEEDED, Disp: , Rfl: ondansetron 4 MG tablet, 1 po q 8 hours prn nausea, Disp: 15 tablet, Rfl: 1 rizatriptan (Maxalt) 10 MG tablet, 1 po porn migraine May repeat in 2 hours if needed, Disp: 12 tablet, Rfl: 2 sertraline 100 MG tablet, Take 75 mg by mouth daily. , Disp: , Rfl: naratriptan (Amerge) 2.5 MG tablet, 1 po prn migraine max 5mg/day; may repeat in 4 hr x1, Disp: 8 tablet, Rfl: 4 Rimegepant Sulfate (Nurtec) 75 MG Tab Dispersible, Take 75 mg by mouth See admin instructions. Take1 for prevention of headache. 2 times a week, Disp: 4 tablet, Rfl: 0 verapamil 40 MG tablet, 1/2 po x 7 days then 1/2 po bid (Patient not taking: Reported on 12/18/2020),Disp: 30 tablet, Rfl: 1 PHYSICAL EXAM: Blood pressure 135/90, pulse 75, temperature 98.3 F (36.8 C), temperature source Temporal, resp. rate 16, height 1.727 m (5' 8), weight 94.3 kg (207 lb 12.8 oz), SpO2 98 %. Body mass index is 31.6 kg/m . Disc margins sharp and flat Speech fluent Heart regular rate rhythm No bruits auscultated carotids Gait and Station normal Spasm and reproduction of pain with palpation the right greater left occipital region. ASSESSMENT/IMPRESSION: Problem List Items Addressed This Visit Cardiovascular Intractable migraine with aura with status migrainosus Other Visit Diagnoses Temporomandibular disorder - Primary Relevant Orders AMB REFERRAL TO PHYSICAL THERAPY Occipital neuralgia of right side Relevant Orders AMB REFERRAL TO PHYSICAL THERAPY PLAN: PT dry needling Decrease Zoloft to 50 mg Naratriptan in lieu of rizatriptan Obtain MRI from 2017 Verapamil 20 mg twice a day for prevention of headache if need Nurtec every other day Follow-up 4 months Erma Haskins DO documented in this [facility]06-08-2021 Instructions* Patient Instructions* Erma Haskins DO - 12/18/2020 9:40 AM EDT Trial zoloft 50 mg Nurtec 75 mg try as a preventive 2 times a week Naratriptan 2.5 instead of rizatriptan 10 mg Call [facility] for MRI brain 2018 PT Magnesium 400 mg Follow up 4 months Verapamil 40 mg 1/2 tow times a day- not in [facility] History of Present illness Narrative* Erma Haskins DO - 11/02/2020 10:00 AM EDT Anahy Escalante 30 y.o. female CHIEF COMPLAINT: Headache HISTORY OF PRESENT ILLNESS: Anahy was evaluated on 11/02/2020. Thank you for your referral on this 30-year-old right-handed woman with a long-standing history of episodic migraine with aura, and persistent headache since midMarch. In the past she has had what she calls periods of long-standing and daily headaches. The most recent was 3 years ago and likely due to OC. She denies any recent head trauma or new medication though sertraline was increased from 50 mg to 100 mg in August. She has had a daily headache since September 23, only improved with 2 pulses of steroids, however returning shortly after each pulse. The headaches are severe, which is more than her usual pattern of headache i.e. one per week. 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 SOCIAL HISTORY: Social History Socioeconomic History Marital status: Spouse name: Not on file Number of children: Not on file Years of education: Not on file Highest education level: Not on file Occupational History Not on file Tobacco Use Smoking status: Not on file Substance and Sexual Activity Alcohol use: Not on file Drug use: Not on file Sexual activity: Not on file Other Topics Concern Not on file Social History Narrative Not on file Social Determinants of Health Financial Resource Strain: Difficulty of Paying Living Expenses: Not on file Food Insecurity: Worried About Running Out of Food in the Last Year: Not on file Ran Out of Food in the Last Year: Not on file Transportation Needs: Lack of Transportation (Medical): Not on file Lack of Transportation (Non-Medical): Not on file Physical Activity: Days of Exercise per Week: Not on file Minutes of Exercise per Session: Not on file Stress: Feeling of Stress : Not on file Social Connections: Frequency of Communication with Friends and Family: Not on file Frequency of Social Gatherings with Friends and Family: Not on file Attends Yazidi Services: Not on file Active Member of Clubs or Organizations: Not on file Attends Club or Organization Meetings: Not on file Marital Status: Not on file Intimate Partner Violence: Fear of Current or Ex-Partner: Not on file Emotionally Abused: Not on file Physically Abused: Not on file Sexually Abused: Not on file OCCUPATIONAL HISTORY: OUTPATIENT MEDICATIONS PRIOR TO VISIT: Current Outpatient Medications: hydrOXYzine hcl 10 MG tablet, TAKE 1 TO 2 TABLETS BY MOUTH EVERY 4 TO 6 HOURS NEEDED, Disp: , Rfl: ondansetron 4 MG tablet, 1 po q 8 hours prn nausea, Disp: 15 tablet, Rfl: 1 rizatriptan (Maxalt) 10 MG tablet, 1 po porn migraine May repeat in 2 hours if needed, Disp: 12 tablet, Rfl: 2 sertraline 100 MG tablet, Take 100 mg by mouth daily., Disp: , Rfl: verapamil 40 MG tablet, 1/2 po x 7 days then 1/2 po bid, Disp: 30 tablet, Rfl: 1 PHYSICAL EXAM: Blood pressure 135/90, pulse 86, temperature 98.6 F (37 C), temperature source Temporal, resp. rate16, height 1.727 m (5' 8), weight 94.8 kg (209 lb 1.6 oz), SpO2 100 %. Body mass index is 31.79 kg/m . Her speech is fluent without dysarthria or dysphasia. Pupils are round reactive to light and accommodation. Extraocular muscles are full. Disc margins are sharp and flat. Hearing intact bilaterally Zocor. She has bilateral TMD with crepitus, and deviation of jaw as well as tenderness to palpation. She also has tenderness in the right occipital region. Motor examination shows normal bulk strength and tone. Reflexes are 3 and symmetric without spread. Gait and station normal. Romberg testing negative. Heart regular rate rhythm. No bruits auscultated carotids. ASSESSMENT/IMPRESSION: Problem List Items Addressed This Visit Cardiovascular Intractable migraine with aura with status migrainosus Other Visit Diagnoses Temporomandibular disorder - Primary Relevant Orders AMB REFERRAL TO PHYSICAL THERAPY PLAN: I believe we may defer imaging studies - she states she had one 3 years ago and I will obtain results. She states she had labs through your office would recommend they include sedimentation rate, thyroid profile, vitamin D as well as CBC and glucose Magnesium/riboflavin Consideration that higher dose of sertraline which is helping her anxiety, may be causing headache a trial of 75 mg for 5 days was recommended. Consider amitriptyline 5 mg at bedtime if need Topamax was not considered as patient wishes to become in the next 3-6 months PT for TMD, right occipital neuralgia Patient will call for an update, verapamil will be utilized to break headache cycle if need Thank you very much for allowing me to participate in the care of your patient Erma Haskins DO documented [facility] this [facility]04-[facility]21 Instructions* Patient Instructions* Erma Haskins DO - 11/02/2020 10:00 AM EDT Sign release for MRI/lab Magnesium 400 mg at bed B complex daily For a migraine - Rizatriptan 10 mg Consider tapering the Zoloft to 75 mg let Noemi know- consider addition of Elavil 10 mg PT If not better use verapamil for prevention of AMBROSE- 5 days Follow up 6 weeks -zoom Call in 2 weeks for update documented in this [facility] History of Present illness Narrative* 30 y.o. female presents for 3 month med check. No acute concerns. She is feeling well. * MIGRAINE HEADACHES: Rashaad Haskins, Neurologist is following care. She is currently in her 2nd round of PT at [facility] to aide in relief of occipital neuralgia. Headaches daily, however, decreased intensity rated 3-4/10 on a regular basis. Nausea accompanies headaches, ondansetron is effective in relieving nausea. Flashing light aura has decreased in frequency. * DEPRESSION and ANXIETY: Feeling good. Compliant with medication and therapy. She uses hydroxyzine once every other week. BEATRIZ Turk is following care. * FATIGUE: She denies feeling fatigued. 6 hours of restful sleep a night. * Her headaches prevent intense exercise. She and her spouse walk daily. -[facility] Work Phone: [phone] History of Present illness Narrative* 30 y.o. female presents for 3 month med check. No acute concerns. She is feeling well. * MIGRAINE HEADACHES: Rashaad Haskins, Neurologist is following care. She is currently in her 2nd round of PT at [facility] to aide in relief of occipital neuralgia. Headaches daily, however, decreased intensity rated 3-4/10 on a regular basis. Nausea accompanies headaches, ondansetron is effective in relieving nausea. Flashing light aura has decreased in frequency. * DEPRESSION and ANXIETY: Feeling good. Compliant with medication and therapy. She uses hydroxyzine once every other week. BEATRIZ Turk is following care. * FATIGUE: She denies feeling fatigued. 6 hours of restful sleep a night. * Her headaches prevent intense exercise. She and her spouse walk daily. [facility] Work Phone: [phone] History of Present illness Narrative* 30 y.o. female presents for 3 month med check. No acute concerns. She is feeling well. * MIGRAINE HEADACHES: Rashaad Haskins, Neurologist is following care. She is currently in her 2nd round of PT at [facility] in [place] to aide in relief of occipital neuralgia. Headaches daily, however, decreased intensity rated 3-4/10 on a regular basis. Nausea accompanies headaches, ondansetron is effective in relieving nausea. Flashing light aura has decreased in frequency. * DEPRESSION and ANXIETY: Feeling good. Compliant with medication and therapy. She uses hydroxyzine once every other week. BEATRIZ Turk at [place] [address] is following care. * FATIGUE: She denies feeling fatigued. 6 hours of restful sleep a night. * Her headaches prevent intense exercise. She and her spouse walk daily. [facility] Work Phone: Evaluation note* Diagnosis Temporomandibular disorder- Primary Temporomandibular joint disorders, unspecified Intractable migraine with aura with status migrainosus Migraine with aura, with intractable migraine, so stated, with status migrainosus [facility] Temporomandibular disorder- Primary Temporomandibular joint disorders, unspecified Occipital neuralgia of right side Intractable migraine with aura with status migrainosus Migraine with aura, with intractable migraine, so stated, with status migrainosus [facility] Diagnosis Onset Date Resolution Status 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 [facility] Work Phone: Evaluation note* Diagnosis Onset Date Resolution Status Female infertility resolved Depression acute Nausea/vomiting in acute acute Rh negative status during acute Supervision of high-risk acute [facility] Work Phone: Evaluation note* Diagnosis Onset Date Resolution Status Depression acute Nausea/vomiting in acute acute Rh negative status during acute Supervision of high-risk acute Depression acute Nausea/vomiting in acute acute Rh negative status during acute Supervision of high-risk acute [facility] Work Phone: evaluation note* Diagnosis Onset Date Resolution Status Depression acute Nausea/vomiting in acute acute Rh negative status during acute Supervision of high-risk acute Depression acute Low lying placenta nos or wi thout hemorrhage, second trimester acute Nausea/vomiting in acute acute Rh negative status during acute Supervision of high-risk acute COVID-19 affecting in second trimester acute Depression acute Low lying placenta nos or wi thout hemorrhage, second trimester acute Nausea/vomiting in acute acute Rh negative status during acute Supervision of high-risk acute COVID-19 affecting in second trimester acute Depression acute Nausea/vomiting in acute acute Rh negative status during acute Supervision of high-risk acute COVID-19 affecting in second trimester acute Depression acute Low lying placenta nos or wi thout hemorrhage, second trimester acute Nausea/vomiting in acute acute Rh negative status during acute Supervision of high-risk acute COVID-19 affecting in second trimester acute Depression acute Low lying placenta nos or wi thout hemorrhage, second trimester acute Nausea/vomiting in acute acute Rh negative status during acute Supervision of high-risk acute [facility] Work Phone: evaluation note* Diagnosis Onset Date Resolution Status Depression acute Nausea/vomiting in acute acute Rh negative status during acute Supervision of high-risk acute Depression acute Low lying placenta nos or wi thout hemorrhage, second trimester acute Nausea/vomiting in acute acute Rh negative status during acute Supervision of high-risk acute COVID-19 affecting in second trimester acute Depression acute Low lying placenta nos or wi thout hemorrhage, second trimester acute Nausea/vomiting in acute acute Rh negative status during acute Supervision of high-risk acute COVID-19 affecting in second trimester acute Depression acute Nausea/vomiting in acute acute Rh negative status during acute Supervision of high-risk acute COVID-19 affecting in second trimester acute Depression acute Low lying placenta nos or wi thout hemorrhage, second trimester acute Nausea/vomiting in acute acute Rh negative status during acute Supervision of high-risk acute COVID-19 affecting in second trimester acute Depression acute Low lying placenta nos or wi thout hemorrhage, second trimester acute Nausea/vomiting in acute acute Rh negative status during acute Supervision of high-risk acute COVID-19 affecting in second trimester acute Depression acute Low lying placenta nos or wi thout hemorrhage, second trimester acute Nausea/vomiting in acute acute Rh negative status during acute Supervision of high-risk acute COVID-19 affecting in second trimester acute Depression acute Dizziness acute Low lying placenta nos or wi thout hemorrhage, second trimester acute Nausea/vomiting in acute acute Rh negative status during acute Supervision of high-risk acute COVID-19 affecting in second trimester acute Depression acute Dizziness acute Low lying placenta nos or wi thout hemorrhage, second trimester acute Nausea/vomiting in acute acute Rh negative status during acute Supervision of high-risk acute [facility] Work Phone: Evaluation note* Diagnosis Onset Date Resolution Status Depression acute Nausea/vomiting in acute acute Rh negative status during acute Supervision of high-risk acute Low lying placenta nos or wi thout hemorrhage, second trimester resolved COVID-19 affecting in second trimester acute Depression acute Nausea/vomiting in acute acute Rh negative status during acute Supervision of high-risk acute Low lying placenta nos or wi thout hemorrhage, second trimester resolved COVID-19 affecting in second trimester acute Depression acute Nausea/vomiting in acute acute Rh negative status during acute Supervision of high-risk acute COVID-19 affecting in second trimester acute Depression acute Nausea/vomiting in acute acute Rh negative status during acute Supervision of high-risk acute Low lying placenta nos or wi thout hemorrhage, second trimester resolved COVID-19 affecting in second trimester acute Depression acute Nausea/vomiting in acute acute Rh negative status during acute Supervision of high-risk acute Low lying placenta nos or wi thout hemorrhage, second trimester resolved COVID-19 affecting in second trimester acute Depression acute Nausea/vomiting in acute acute Rh negative status during acute Supervision of high-risk acute Low lying placenta nos or wi thout hemorrhage, second trimester resolved COVID-19 affecting in second trimester acute Depression acute Nausea/vomiting in acute acute Rh negative status during acute Supervision of high-risk acute Dizziness resolved Low lying placenta nos or wi thout hemorrhage, second trimester resolved COVID-19 affecting in second trimester acute Depression acute Nausea/vomiting in acute acute Rh negative status during acute Supervision of high-risk acute Dizziness resolved Low lying placenta nos or wi thout hemorrhage, second trimester resolved COVID-19 affecting in second trimester acute Depression acute Nausea/vomiting in acute acute Rh negative status during acute Supervision of high-risk acute COVID-19 affecting in second trimester acute Depression acute Nausea/vomiting in acute acute Rh negative status during acute Supervision of high-risk acute [facility] Work Phone: Evaluation note* Diagnosis Onset Date Resolution Status Depression acute Nausea/vomiting in acute acute Rh negative status during acute Supervision of high-risk acute Low lying placenta nos or wi thout hemorrhage, second trimester resolved COVID-19 affecting in second trimester acute Depression acute Nausea/vomiting in acute acute Rh negative status during acute Supervision of high-risk acute Low lying placenta nos or wi thout hemorrhage, second trimester resolved COVID-19 affecting in second trimester acute Depression acute Nausea/vomiting in acute acute Rh negative status during acute Supervision of high-risk acute COVID-19 affecting in second trimester acute Depression acute Nausea/vomiting in acute acute Rh negative status during acute Supervision of high-risk acute Low lying placenta nos or wi thout hemorrhage, second trimester resolved COVID-19 affecting in second trimester acute Depression acute Nausea/vomiting in acute acute Rh negative status during acute Supervision of high-risk acute Low lying placenta nos or wi thout hemorrhage, second trimester resolved COVID-19 affecting in second trimester acute Depression acute Nausea/vomiting in acute acute Rh negative status during acute Supervision of high-risk acute Low lying placenta nos or wi thout hemorrhage, second trimester resolved COVID-19 affecting in second trimester acute Depression acute Nausea/vomiting in acute acute Rh negative status during acute Supervision of high-risk acute Dizziness resolved Low lying placenta nos or wi thout hemorrhage, second trimester resolved COVID-19 affecting in second trimester acute Depression acute Nausea/vomiting in acute acute Rh negative status during acute Supervision of high-risk acute Dizziness resolved Low lying placenta nos or wi thout hemorrhage, second trimester resolved COVID-19 affecting in second trimester acute Depression acute Nausea/vomiting in acute acute Rh negative status during acute Supervision of high-risk acute COVID-19 affecting in second trimester acute Depression acute Nausea/vomiting in acute acute Rh negative status during acute Supervision of high-risk acute COVID-19 affecting in second trimester acute Depression acute Nausea/vomiting in acute acute Rh negative status during acute Supervision of high-risk acute [facility] Work Phone: Evaluation note* Diagnosis Onset Date Resolution Status Depression acute Nausea/vomiting in acute acute Rh negative status during acute Supervision of high-risk acute Low lying placenta nos or wi thout hemorrhage, second trimester resolved COVID-19 affecting in second trimester acute Depression acute Nausea/vomiting in acute acute Rh negative status during acute Supervision of high-risk acute Low lying placenta nos or wi thout hemorrhage, second trimester resolved COVID-19 affecting in second trimester acute Depression acute Nausea/vomiting in acute acute Rh negative status during acute Supervision of high-risk acute COVID-19 affecting in second trimester acute Depression acute Nausea/vomiting in acute acute Rh negative status during acute Supervision of high-risk acute Low lying placenta nos or wi thout hemorrhage, second trimester resolved COVID-19 affecting in second trimester acute Depression acute Nausea/vomiting in acute acute Rh negative status during acute Supervision of high-risk acute Low lying placenta nos or wi thout hemorrhage, second trimester resolved COVID-19 affecting in second trimester acute Depression acute Nausea/vomiting in acute acute Rh negative status during acute Supervision of high-risk acute Low lying placenta nos or wi thout hemorrhage, second trimester resolved COVID-19 affecting in second trimester acute Depression acute Nausea/vomiting in acute acute Rh negative status during acute Supervision of high-risk acute Dizziness resolved Low lying placenta nos or wi thout hemorrhage, second trimester resolved COVID-19 affecting in second trimester acute Depression acute Nausea/vomiting in acute acute Rh negative status during acute Supervision of high-risk acute Dizziness resolved Low lying placenta nos or wi thout hemorrhage, second trimester resolved COVID-19 affecting in second trimester acute Depression acute Nausea/vomiting in acute acute Rh negative status during acute Supervision of high-risk acute COVID-19 affecting in second trimester acute Depression acute Nausea/vomiting in acute acute Rh negative status during acute Supervision of high-risk acute COVID-19 affecting in second trimester acute Depression acute Nausea/vomiting in acute acute Rh negative status during acute Supervision of high-risk acute COVID-19 affecting in second trimester acute Depression acute tachycardia acute Nausea/vomiting in acute acute Rh negative status during acute Supervision of high-risk acute tachycardia acute acute Supervision of high-risk acute [facility] Work Phone: Evaluation note* Diagnosis Onset Date Resolution Status Depression acute Rh negative status during acute Low lying placenta nos or wi thout hemorrhage, second trimester resolved Nausea/vomiting in resolved resolved Supervision of high-risk resolved Depression acute Rh negative status during acute COVID-19 affecting in second trimester resolved Low lying placenta nos or wi thout hemorrhage, second trimester resolved Nausea/vomiting in resolved resolved Supervision of high-risk resolved Depression acute Rh negative status during acute COVID-19 affecting in second trimester resolved Nausea/vomiting in resolved resolved Supervision of high-risk resolved Depression acute Rh negative status during acute COVID-19 affecting in second trimester resolved Low lying placenta nos or wi thout hemorrhage, second trimester resolved Nausea/vomiting in resolved resolved Supervision of high-risk resolved Depression acute Rh negative status during acute COVID-19 affecting in second trimester resolved Low lying placenta nos or wi thout hemorrhage, second trimester resolved Nausea/vomiting in resolved resolved Supervision of high-risk resolved Depression acute Rh negative status during acute COVID-19 affecting in second trimester resolved Low lying placenta nos or wi thout hemorrhage, second trimester resolved Nausea/vomiting in resolved resolved Supervision of high-risk resolved Depression acute Rh negative status during acute COVID-19 affecting in second trimester resolved Dizziness resolved Low lying placenta nos or wi thout hemorrhage, second trimester resolved Nausea/vomiting in resolved resolved Supervision of high-risk resolved Depression acute Rh negative status during acute COVID-19 affecting in second trimester resolved Dizziness resolved Low lying placenta nos or wi thout hemorrhage, second trimester resolved Nausea/vomiting in resolved resolved Supervision of high-risk resolved Depression acute Rh negative status during acute COVID-19 affecting in second trimester resolved Nausea/vomiting in resolved resolved Supervision of high-risk resolved Depression acute Rh negative status during acute COVID-19 affecting in second trimester resolved Nausea/vomiting in resolved resolved Supervision of high-risk resolved Depression acute Rh negative status during acute COVID-19 affecting in second trimester resolved Nausea/vomiting in resolved resolved Supervision of high-risk resolved Depression acute Rh negative status during acute COVID-19 affecting in second trimester resolved tachycardia resolved Nausea/vomiting in resolved resolved Supervision of high-risk resolved tachycardia resolved resolved Supervision of high-risk resolved Chorioamnionitis acute Depression acute Rh negative status during acute Status post vaginal delivery acute COVID-19 affecting in second trimester resolved Decreased movements in third trimester resolved Nausea/vomiting in resolved resolved Supervision of high-risk resolved Variable heart rate decelerations, antepartum resolved [facility] Work Phone: Evaluation note* Diagnosis Onset Date Resolution Status Depression acute COVID-19 affecting in second trimester resolved Low lying placenta nos or wi thout hemorrhage, second trimester resolved Nausea/vomiting in resolved resolved Supervision of high-risk resolved Depression acute COVID-19 affecting in second trimester resolved Nausea/vomiting in resolved resolved Supervision of high-risk resolved Depression acute COVID-19 affecting in second trimester resolved Low lying placenta nos or wi thout hemorrhage, second trimester resolved Nausea/vomiting in resolved resolved Supervision of high-risk resolved Depression acute COVID-19 affecting in second trimester resolved Low lying placenta nos or wi thout hemorrhage, second trimester resolved Nausea/vomiting in resolved resolved Supervision of high-risk resolved Depression acute COVID-19 affecting in second trimester resolved Low lying placenta nos or wi thout hemorrhage, second trimester resolved Nausea/vomiting in resolved resolved Supervision of high-risk resolved Depression acute COVID-19 affecting in second trimester resolved Dizziness resolved Low lying placenta nos or wi thout hemorrhage, second trimester resolved Nausea/vomiting in resolved resolved Supervision of high-risk resolved Depression acute COVID-19 affecting in second trimester resolved Dizziness resolved Low lying placenta nos or wi thout hemorrhage, second trimester resolved Nausea/vomiting in resolved resolved Supervision of high-risk resolved Depression acute COVID-19 affecting in second trimester resolved Nausea/vomiting in resolved resolved Supervision of high-risk resolved Depression acute COVID-19 affecting in second trimester resolved Nausea/vomiting in resolved resolved Supervision of high-risk resolved Depression acute COVID-19 affecting in second trimester resolved Nausea/vomiting in resolved resolved Supervision of high-risk resolved Depression acute COVID-19 affecting in second trimester resolved tachycardia resolved Nausea/vomiting in resolved resolved Supervision of high-risk resolved tachycardia resolved resolved Supervision of high-risk resolved Depression acute Chorioamnionitis resolved COVID-19 affecting in second trimester resolved Decreased movements in third trimester resolved Nausea/vomiting in resolved resolved Supervision of high-risk resolved Variable heart rate decelerations, antepartum resolved nipple pain nonea ctive Care and examination of lactating mother noneactive Care and examination of lactating mother noneactive Chills acute Depression acute [facility] Work Phone: Evaluation note* Diagnosis Onset Date Resolution Status Depression acute COVID-19 affecting in second trimester resolved Nausea/vomiting in resolved resolved Supervision of high-risk resolved Depression acute COVID-19 affecting in second trimester resolved Low lying placenta nos or wi thout hemorrhage, second trimester resolved Nausea/vomiting in resolved resolved Supervision of high-risk resolved Depression acute COVID-19 affecting in second trimester resolved Low lying placenta nos or wi thout hemorrhage, second trimester resolved Nausea/vomiting in resolved resolved Supervision of high-risk resolved Depression acute COVID-19 affecting in second trimester resolved Low lying placenta nos or wi thout hemorrhage, second trimester resolved Nausea/vomiting in resolved resolved Supervision of high-risk resolved Depression acute COVID-19 affecting in second trimester resolved Dizziness resolved Low lying placenta nos or wi thout hemorrhage, second trimester resolved Nausea/vomiting in resolved resolved Supervision of high-risk resolved Depression acute COVID-19 affecting in second trimester resolved Dizziness resolved Low lying placenta nos or wi thout hemorrhage, second trimester resolved Nausea/vomiting in resolved resolved Supervision of high-risk resolved Depression acute COVID-19 affecting in second trimester resolved Nausea/vomiting in resolved resolved Supervision of high-risk resolved Depression acute COVID-19 affecting in second trimester resolved Nausea/vomiting in resolved resolved Supervision of high-risk resolved Depression acute COVID-19 affecting in second trimester resolved Nausea/vomiting in resolved resolved Supervision of high-risk resolved Depression acute COVID-19 affecting in second trimester resolved tachycardia resolved Nausea/vomiting in resolved resolved Supervision of high-risk resolved tachycardia resolved resolved Supervision of high-risk resolved Depression acute Chorioamnionitis resolved COVID-19 affecting in second trimester resolved Decreased movements in third trimester resolved Nausea/vomiting in resolved resolved Supervision of high-risk resolved Variable heart rate decelerations, antepartum resolved nipple pain nonea ctive Care and examination of lactating mother noneactive Care and examination of lactating mother noneactive Chills acute Depression acute Routine Follow-Up noneactive [facility] Work Phone: Evaluation note* Diagnosis History of vacuum extraction assisted delivery- Primary Other postprocedural status Low lying placenta nos or without hemorrhage, second trimester ([facility]) Obesity affecting in second trimester, unspecified obesity type ([facility]) Multigravida of advanced maternal age in second trimester ([facility]) Rh negative state in antepartum period ([facility]) Rhesus isoimmunization affecting management of mother, antepartum condition Major depressive disorder with current active episode, unspecified depression episode severity, unspecified whether recurrent Screening for diabetes mellitus Encounter for supervision of high risk multigravida of advanced maternal age, antepartum ([facility]) History of infection Personal history of problems with care elsewhere in second trimester ([facility]) [facility] 28 weeks [facility] of ([facility])- Primary state, incidental Otalgia, right Acute otitis media, right Unspecified otitis media [facility] Diagnosis Encounter for supervision of high risk multigravida of advanced maternal age, antepartum ([facility])- Primary Need for vaccination Need for prophylactic vaccination and inoculation against unspecified single disease 28 weeks gestation of ([facility]) state, incidental * Assessment & Plan Note - Shade Alexander MD - 12/07/2024 1:45 PM EDT Associated Problem(s): Encounter for supervision of high risk multigravida of advanced maternal age, antepartum (HCC) documented in this encounter [facility] note* Diagnosis Encounter for supervision of high risk multigravida of advanced maternal age, antepartum (HCC)- Primary Need for vaccination Need for prophylactic vaccination and inoculation against unspecified single disease 28 weeks gestation of (HCC) state, incidental Encounter for supervision of high risk multigravida of advanced maternal age, antepartum (HCC)- Primary History of vacuum extraction assisted delivery Other postprocedural status 30 weeks gestation of (HCC) state, incidental Major depressive disorder with current active episode, unspecified depression episode severity, unspecified whether recurrent documented in this encounter [facility] note* Diagnosis Encounter for supervision of high risk multigravida of advanced maternal age, antepartum (HCC)- Primary Need for vaccination Need for prophylactic vaccination and inoculation against unspecified single disease 28 weeks gestation of (HCC) state, incidental Encounter for supervision of high risk multigravida of advanced maternal age, antepartum (HCC)- Primary 32 weeks gestation of ([facility]) state, incidental History of vacuum extraction assisted delivery Other postprocedural status Major depressive disorder with current active episode, unspecified depression episode severity, unspecified whether recurrent Uterine size-date discrepancy, third trimester (HCC) Multigravida of advanced maternal age in second trimester ([facility]) documented in this encounter [facility] note* Diagnosis Encounter for supervision of high risk multigravida of advanced maternal age, antepartum (HCC)- Primary Need for vaccination Need for prophylactic vaccination and inoculation against unspecified single disease 28 weeks gestation of (HCC) state, incidental 34 weeks gestation of (HCC)- Primary state, incidental Encounter for supervision of high risk multigravida of advanced maternal age, antepartum (HCC) History of vacuum extraction assisted delivery Other postprocedural status Multigravida of advanced maternal age in third trimester (HCC) documented in this encounter [facility] note* Diagnosis Encounter for supervision of high risk multigravida of advanced maternal age, antepartum (HCC)- Primary Need for vaccination Need for prophylactic vaccination and inoculation against unspecified single disease 28 weeks gestation of ([facility]) state, incidental Encounter for screening for malformation using ultrasound ([facility])- Primary Encounter for supervision of high risk multigravida of advanced maternal age, antepartum (HCC) Uterine size-date discrepancy, third trimester ([facility]) 34 weeks gestation of ([facility]) state, incidental documented in this encounter [facility] note* Diagnosis Encounter for supervision of high risk multigravida of advanced maternal age, antepartum (HCC)- Primary Need for vaccination Need for prophylactic vaccination and inoculation against unspecified single disease 28 weeks gestation of ([facility]) state, incidental Encounter for supervision of high risk multigravida of advanced maternal age, antepartum ([facility])- Primary History of vacuum extraction assisted delivery Other postprocedural status Multigravida of advanced maternal age in third trimester ([facility]) Uterine size-date discrepancy, third trimester ([facility]) Major depressive disorder with current active episode, unspecified depression episode severity, unspecified whether recurrent 36 weeks gestation of ([facility]) state, incidental documented in this encounter [facility] note* Diagnosis Encounter for supervision of high risk multigravida of advanced maternal age, antepartum (HCC)- Primary Need for vaccination Need for prophylactic vaccination and inoculation against unspecified single disease 28 weeks gestation of ([facility]) state, incidental 36 weeks gestation of ([facility])- Primary state, incidental Encounter for supervision of high risk multigravida of advanced maternal age, antepartum ([facility]) Decreased movements in third trimester, single or unspecified fetus ([facility]) * Assessment & Plan Note - Shade Alexander MD - 02/01/2025 1:56 PM EDT Associated Problem(s): Encounter for supervision of high risk multigravida of advanced maternal age, antepartum ([facility]) Orders: URINE OB DIP B/O documented in this encounter [facility] note* Diagnosis Encounter for supervision of high risk multigravida of advanced maternal age, antepartum (HCC)- Primary Need for vaccination Need for prophylactic vaccination and inoculation against unspecified single disease 28 weeks gestation of (HCC) state, incidental Elevated glucose- Primary Other abnormal glucose 36 weeks gestation of (HCC)- Primary state, incidental Encounter for supervision of high risk multigravida of advanced maternal age, antepartum (HCC) Decreased movements in third trimester, single or unspecified fetus (HCC) [facility]* Diagnosis Encounter for supervision of high risk multigravida of advanced maternal age, antepartum (HCC)- Primary History of vacuum extraction assisted delivery Other postprocedural status Multigravida of advanced maternal age in third trimester (HCC) Uterine size-date discrepancy, third trimester (HCC) 38 weeks gestation of (HCC) state, incidental * Assessment & Plan Note - Chanda Huffman MD - 02/10/2025 9:14 AM EDT Associated Problem(s): History of vacuum extraction assisted delivery Orders: URINE OB DIP B/O documented in this encounter [facility] note* Diagnosis Elevated glucose- Primary Other abnormal glucose Encounter for supervision of high risk multigravida of advanced maternal age, antepartum (HCC)- Primary History of vacuum extraction assisted delivery Other postprocedural status Multigravida of advanced maternal age in third trimester (HCC) Uterine size-date discrepancy, third trimester ([facility]) 38 weeks gestation of (HCC) state, incidental documented in this encounter [facility] Author Alma Rosa Peña [facility] September 21, 2023 7:32pm Note Date/Time September 21, 2023 7:3 2pm [facility] Medical Records Department [address] [place] [address] OB Triage Physician Note 09/21/239 MR#: [id number] Acct: [id number] Name: ANAHY ESCALANTE Rep #:[id number] : 1990 32 From: Alma Rosa Peña CNM PCP: SPEEDY Taylor Status:REG CLI Y Location: [place] [id number] HPI - General General Date of Service: 09/21/23 Chief Complaint: non reactive nst in office HPI Narrative ANAHY ESCALANTE, is a 32 F who presents at 37.6 presented with non reactivenst for prolonged monitoring and bpp. Maternal Data Information RICHARD Calculator Estimated Delivery Date Method Current WG Current Estimate 10/06/23 LMP (Certain) 37w 6d Other Estimates 10/08/23 Ultrasound #1 37w 4d PFSH PFSH Home Medications sertraline 50 mg tablet (Zoloft) 75 mg PO DAILY 12/18/22 [History Last Taken Unknown] multivitamin no.47-iron fum 27 mg-folate no.1 1 mg-dha 300 mg capsule (PNV-DHA)1 cap PO DAILY 02/24/23 [History Last Taken Unknown] ondansetron HCl 4 mg tablet 4 mg PO Q6H 02/24/23 [History Last Taken Unknown] Allergy/AdvReac Type Severity Reaction Status Date / Time codeine Allergy Severe Vomiting Verified 09/21/23 13:22 Family History Grandmother Breast cancer Father Graves disease Other Heart disease Surgical History History of placement of ear tubes History of tonsillectomy [place] teeth removed Social History adopted: No household members: spouse current occupational status: employed 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 current occupational exposures/hazards: No pets and animals: Yes pets and animals: dog(s) history of recent travel: No sexually active: Yes Smoking Status: Never smoker alcohol intake: never substance use type: does not use well-balanced diet: daily or most days caffeine: Yes Type: coffee Number of servings: 1 eating out: 1-3 times/week during the past year weight has: remained stable what type of physical activity do you participate in: walking and yoga frequency: 3-4 times per week duration: 30-45 minutes/day marie/yarsani: Catholic seatbelt use: always do you feel safe at home: Yes additional social history: Spouse - Renato 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 cut cord/dad catch: maybe : yes PP control planned: discussed discussed possible routes of delivery and associated risks: [] special requests: [] Plans Covid status: + test 06/22/23 Flu vaccine: given Tdap vaccine: given Rhogam: no/ Rh neg. LARC form signed: yes movement and labor precautions reviewed. Problem list reviewed and updated with the most current plan of care details and appropriate orders placed. Relevant counseling for the gestational age provided. Continue routine care and follow up unless otherwise noted in visit notes/problem list details OB Flowsheet Initial Weight: Not Recorded Date -?-?-?-?-?-?-?-?-?-?-?-?- EGA Weight BP Urine Prot -?-?-?-?-?-?-?-?-?-?-?-?- Glucose FHR FuHt Pres Dilation -?-?-?-?-?-?-?-?-?-?-?-?- Effaced St Visit Note 03/05/23 -?-?-?-?-?-?-?-?-?-?-?-?- 9w 2d 213 lb 6 oz 135/95 -?-?-?-?-?-?-?-?-?-?-?-?- 160 -?-?-?-?-?-?-?-?-?-?-?-?- SM- CRL 2 cm con s with LMP 04/03/23 -?-?-?-?-?-?-?-?-?-?-?-?- 13w 3d 210 lb 8 oz 130/78 Nega tive -?-?-?-?-?-?--?-?-?-?-?-?- Negative -?-?-?-?-?-?-?-?-?-?-?-?- KW- no vb/crampi ng. flu shot today. no concerns. FHT visualized with handheld US. 05/05/23 -?-?-?-?-?-?-?-?-?-?-?-?- 18w 0d 209 lb 8 oz 122/82 Nega tive -?-?-?-?-?-?-?-?-?-?-?-?- Negative 144 -?-?-?-?-?-?-?-?-?-?-?-?- MH-Nausea persis ts, managing better with reglan and zofran. Needs anatomy US scheduled. No VB. No flutters yet. Active IUP on brief US 06/03/23 -?-?-?-?-?-?-?-?-?-?-?-?- 22w 1d 214 lb 8 oz 138/82 Nega tive -?-?-?-?-?-?-?-?-?-?-?-?- Negative 145 -?-?-?-?-?-?-?-?-?-?-?-?- SM- no vb mild c ramping, nausea improving 07/03/23 -?-?-?-?-?-?-?-?-?-?-?-?- 26w 3d 214 lb 8 oz 115/72 Nega tive -?-?-?-?-?-?-?-?-?-?-?-?- Negative 140 27 -?-?-?-?-?-?-?-?-?-?-?-?- JV- no lof, vagi nal bleeding, or dec fm. no complaints. is rh negative also so will not need rhogam. normal 28 week labs. 07/20/23 -?-?-?-?-?-?-?-?-?-?-?-?- 28w 6d 219 lb 4 oz 112/72 Nega tive -?-?-?-?-?-?-?-?-?-?-?-?- Negative 131 28 -?-?-?-?-?-?-?-?-?-?-?-?- MH-no VB, LOF. G ood Fm. tdap, larc. 08/03/23 -?-?-?-?-?--?-?-?-?-?-?-?- 30w 6d 218 lb 112/70 Negative -?-?-?-?-?-?-?-?-?-?-?-?- Negative 140 30 -?-?-?-?-?-?-?-?-?-?-?-?- LC- no vb/ctx/lo f. good fm. decreased fluids today. LC- no vb/ctx/lof. good fm. decreased PO fluids today. had audible decel in the office x3, NST with variable. sent to for IV hydration, monitoring and BPP. 08/05/23 -?-?-?-?-?-?-?-?-?-?-?-?- 31w 1d 217 lb 2 oz 126/86 -?-?-?-?-?-?-?-?-?-?-?-?- 140 -?-?-?-?-?-?-?-?-?-?-?-?- JV- pt seen toda y for dizziness and tension headache like feeling that started yesterday. heart tones are regular rate without audible decels but sounds slightly irregular sounding. ordering for MFM evaluation and possible echo of baby. ordering labs (cbc, cmp, vit d, thiamine, tsh, b12) 08/17/23 -?-?-?-?-?-?-?-?-?-?-?-?- 32w 6d 222 lb 2 oz 122/75 Nega tive -?-?-?-?-?-?-?-?-?-?-?-?- Negative 168 32 -?-?-?-?-?-?-?-?-?-?-?-?- JV- no lof, vagi nal bleeding, or dec fm. She is a little tearful today about weight gain and beka -moralez contractions. doing better with compression stockings and 100 oz of fluid a day. 08/24/23 -?-?-?-?-?-?-?-?-?-?-?-?- 33w 6d 223 lb 6 oz 126/82 Nega tive -?-?-?-?-?-?-?-?-?-?-?-?- Negative 145 33 -?-?-?-?-?-?-?-?-?-?-?-?- MH-NO VB, LOF. G ood FM. Last 2 days very dizzy, nauseous. Feeling extremely thirsty. No reg CTX. Headache off and on . No vision changes. Labs ordered. 08/31/23 -?-?-?-?-?-?-?-?-?-?-?-?- 34w 6d 222 lb 143/83 131/85 Negative -?-?-?-?-?-?-?-?-?-?-?-?- Negative 160 35 Cephalic 0 .5 -?-?-?-?-?-?-?-?-?-?-?-?- Sm- no vb lof go od fm co irregular ctx 09/08/23 -?-?-?-?-?-?-?-?-?-?-?-?- 36w 0d 225 lb 138/89 119/80 Negative -?-?-?-?-?-?-?-?-?-?-?-?- Negative 140 36 Cephalic 0 -?-?-?-?-?-?-?-?-?-?-?-?- kw- no vb/lof/ct x. good fm. no ambrose/dizziness/bv. 09/14/23 -?-?-?-?-?-?-?-?-?-?-?-?- 36w 6d 226 lb 2 oz 130/85 Nega tive -?-?-?-?-?-?-?-?-?-?-?-?- Negative 130 37 Cephalic -?-?-?-?-?-?-?-?-?-?-?-?- JV- anahy co mplains of dizziness, stars in eyes, and headaches again. They had stopped for a couple of weeks and back again. she also feels wet most of the time. rom plus collected and pIH labs repeated. pt declines cervix check. 09/21/23 -?-?-?-?-?-?-?-?-?-?-?-?- 37w 6d 226 lb 2 oz 130/85 -?-?-?-?-?-?-?-?-?-?-?-?- 180 38 Cephalic -?-?-?-?-?-?-?-?-?-?-?-?- SM- no vb lof go od fm no regular ctx, nst FOR TACHYCARDIA NST FHR Rate Baby A Baseline: 115-120 Variability:: Moderate Accelerations:: 15 x 15 Decelerations:: Variable (resolved) NST Reactive:: Yes FHR Category:: Category I Assessment & Plan (1) : QUALIFIERS: Weeks of gestation: 37 weeks Qualified Code(s): Z3A.37 - 37 weeks gestation of COMMENT: Neg GBS declined genetic, ntd, & carrier testing. anatomy reviewed, normal anatomy (2) Supervision of high-risk : QUALIFIERS: Trimester: third trimester Qualified Code(s): O09.93 - Supervision of high risk , unspecified, third trimester COMMENT: PRR , RICHARD 10/06/23, surprise Renato (3) tachycardia: PLAN: Plan Patient presents for triage evaluation secondary to non reassuring NSt in office. BPP 6/8 with reactive NST in WP. having irregular contractions without cervical change FHT: Moderate variability reactive no decelerations category I tracing Congress: irreg Contractions Assessment and plan: Reactive NST, reassuring maternal and status patient discharged to home to follow-up in office next week and prn. See problem list details for additional plan information. Charges/Coding Procedures Urinary/Genital 52xxx-59xxx: 90888-46 non-stress test Interp 09/21/231931 <Electronically signed by Alma Rosa singh CNM> Date _ Alma Rosa Peña CNM Cosigner Signature (if applicable): Date CC: SUZANNE Peña; CINTIA-Xiomara Dallas ~ Signed [facility] Work Phone: History of Present illness Diyevvbcp1 y.o. female presents for possible Lyme disease. 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 She denies seeing a tick on her person. She has a bruise on her left thigh that resembles a bullseye appearance described in Lyme disease so she is concerned. She denies feeling ill.[facility] Work Phone: History of Present illness [id number] G0 presents for annual exam. Patient safe [...] started vitamins. Patient is no acute concerns [facility] Work Phone: History of Present illness [id number] presents for IUD removal. Considering fertility in the near future. Been taking vitamins. Patient has no acute concern[facility] Work Phone: History of Present illness Narrative* [...] uses no contraception. she is sexually active. [facility]: 12/28/21. * History: 0. [...] weight loss. 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 * denies any SI or HI. * No other health concerns -[facility] Work Phone: Reason for referral (narrative)No reason for referral information availableWFulton County Health Center Work Phone: Reason for visit Narrative* Diagnostic Procedure Only (Routine) - Closed Specialty Diagnoses / Procedures Referred By Darnell polk Referred To Contact [facility] Diagnoses Encounter for supervision of high risk multigravida of advanced maternal age, antepartum (HCC) 32 weeks gestation of (HCC) with care elsewhere in third trimester ([facility]) Uterine size-date discrepancy, third trimester ([facility]) Procedures OBSTETRIC ULTRASOUND WHI US PREG UTERUS AFTER 1ST TRIMEST GESTATION Pauline King APRN.CNAron [address] [place] [address] Phone: tel: fax: [address] [address] Referral ID Status Reason Start Date Expiration Date V isits Requested Visits Authorized [id number] Closed Auto-Generate d Referral 01/04/2025 01/04/2026 1 1 [facility] Summary Purpose Family History No Family History [...] of Graves' di sease: Father(V18.19, Z83.49) Status:Active Relationship Condition Age at Onset Recorded Date/T darien Not Specified Cardiac disease Unknown grandmother Malignant neoplasm of breast Unknown father Graves' disease Unknown Advance Directives No Advanced Directives Records Found Advance Directive Response Recorded Date/ Time Living Will No September 24, 2023 2:17pm Power of Software Design Analyst No September 23 2:17pm Reason for Referral Status Reason Specialty Diagnoses / Procedures Referred By Contact Referred To Contact New Request Physical Therapy Diagnoses Temporomandibular disorder Erma Haskins, DO [address] [place] [address] [facility] Physical [facility] [address] [place] [address] Scheduling Instructions . Status Reason Specialty Diagnoses / Procedures Referred By Contact Referred To Contact New Request Physical Therapy Diagnoses Temporomandibular disorder Occipital neuralgia of right side Erma Haskins, DO [address] [place] [address] [facility] Physical [facility] [address] [place] [address] Chief Complaint 3 month med check.3 month [...] refill - doesn't need anything today.ER follow-up. Chief Complaint and Reason for Visit Chief Complaint NEW PT, infertility consult per INFERTILITY Reason for Visit Female infertility Chief Complaint NEW PT, infertility consult per INFERTILITY EORDER Reason for Visit Female infertility Chief Complaint NEW PT, infertility consult per INFERTILITY EORDER CONFIRM RICHARD Reason for Visit Female infertility Chief Complaint NEW PT, infertility consult per INFERTILITY EORDER CONFIRM RICHARD Early Reason for Visit Female infertility Chief Complaint NEW PT, infertility consult per INFERTILITY EORDER CONFIRM RICHARD Early NOB LMP: 12/30 Reason for Visit Female infertility Depression Nausea/vomiting in Rh negative status during Supervision of high-risk Chief Complaint NEW PT, infertility consult per INFERTILITY EORDER CONFIRM RICHARD Early NOB LMP: 12/30 E-ORDER Reason for Visit Female infertility Depression Nausea/vomiting in Rh negative status during Supervision of high-risk Chief Complaint EORDER CONFIRM RICHARD Early NOB LMP: 12/30 E-ORDER 13 WK OB Hydration Reason for Visit Depression Nausea/vomiting in Rh negative status during Supervision of high-risk Depression Nausea/vomiting in Rh negative status during Supervision of high-risk Chief Complaint Hydration 17 WK OB 22 WK OB 26 WK OB 29 WK OB 31 WK OB MONITORING MONITORING OB, dizzy spells Reason for Visit Depression Nausea/vomiting in Rh negative status during Supervision of high-risk Depression Low lying placenta nos or without hemorrhage, second trimester Nausea/vomiting in Rh negative status during Supervision of high-risk COVID-19 affecting in second trimester Depression Low lying placenta nos or without hemorrhage, second trimester Nausea/vomiting in Rh negative status during Supervision of high-risk COVID-19 affecting in second trimester Depression Nausea/vomiting in Rh negative status during Supervision of high-risk COVID-19 affecting in second trimester Depression Low lying placenta nos or without hemorrhage, second trimester Nausea/vomiting in Rh negative status during Supervision of high-risk COVID-19 affecting in second trimester Depression Low lying placenta nos or without hemorrhage, second trimester Nausea/vomiting in Rh negative status during Supervision of high-risk Chief Complaint 17 WK OB 22 WK OB 26 WK OB 29 WK OB 31 WK OB MONITORING MONITORING OB, dizzy spells 33 WK OB OB check per Reason for Visit Depression Nausea/vomiting in Rh negative status during Supervision of high-risk Depression Low lying placenta nos or without hemorrhage, second trimester Nausea/vomiting in Rh negative status during Supervision of high-risk COVID-19 affecting in second trimester Depression Low lying placenta nos or without hemorrhage, second trimester Nausea/vomiting in Rh negative status during Supervision of high-risk COVID-19 affecting in second trimester Depression Nausea/vomiting in Rh negative status during Supervision of high-risk COVID-19 affecting in second trimester Depression Low lying placenta nos or without hemorrhage, second trimester Nausea/vomiting in Rh negative status during Supervision of high-risk COVID-19 affecting in second trimester Depression Low lying placenta nos or without hemorrhage, second trimester Nausea/vomiting in Rh negative status during Supervision of high-risk COVID-19 affecting in second trimester Depression Low lying placenta nos or without hemorrhage, second trimester Nausea/vomiting in Rh negative status during Supervision of high-risk COVID-19 affecting in second trimester Depression Dizziness Low lying placenta nos or without hemorrhage, second trimester Nausea/vomiting in Rh negative status during Supervision of high-risk COVID-19 affecting in second trimester Depression Dizziness Low lying placenta nos or without hemorrhage, second trimester Nausea/vomiting in Rh negative status during Supervision of high-risk Chief Complaint 22 WK OB 26 WK OB 29 WK OB 31 WK OB MONITORING MONITORING OB, dizzy spells 33 WK OB OB check per MH 35 WK OB 36 WK OB Reason for Visit Depression Nausea/vomiting in Rh negative status during Supervision of high-risk Low lying placenta nos or without hemorrhage, second trimester COVID-19 affecting in second trimester Depression Nausea/vomiting in Rh negative status during Supervision of high-risk Low lying placenta nos or without hemorrhage, second trimester COVID-19 affecting in second trimester Depression Nausea/vomiting in Rh negative status during Supervision of high-risk COVID-19 affecting in second trimester Depression Nausea/vomiting in Rh negative status during Supervision of high-risk Low lying placenta nos or without hemorrhage, second trimester COVID-19 affecting in second trimester Depression Nausea/vomiting in Rh negative status during Supervision of high-risk Low lying placenta nos or without hemorrhage, second trimester COVID-19 affecting in second trimester Depression Nausea/vomiting in Rh negative status during Supervision of high-risk Low lying placenta nos or without hemorrhage, second trimester COVID-19 affecting in second trimester Depression Nausea/vomiting in Rh negative status during Supervision of high-risk Dizziness Low lying placenta nos or without hemorrhage, second trimester COVID-19 affecting in second trimester Depression Nausea/vomiting in Rh negative status during Supervision of high-risk Dizziness Low lying placenta nos or without hemorrhage, second trimester COVID-19 affecting in second trimester Depression Nausea/vomiting in Rh negative status during Supervision of high-risk COVID-19 affecting in second trimester Depression Nausea/vomiting in Rh negative status during Supervision of high-risk Chief Complaint 22 WK OB 26 WK OB 29 WK OB 31 WK OB MONITORING MONITORING OB, dizzy spells 33 WK OB OB check per MH 35 WK OB 36 WK OB 37 WK OB Reason for Visit Depression Nausea/vomiting in Rh negative status during Supervision of high-risk Low lying placenta nos or without hemorrhage, second trimester COVID-19 affecting in second trimester Depression Nausea/vomiting in Rh negative status during Supervision of high-risk Low lying placenta nos or without hemorrhage, second trimester COVID-19 affecting in second trimester Depression Nausea/vomiting in Rh negative status during Supervision of high-risk COVID-19 affecting in second trimester Depression Nausea/vomiting in Rh negative status during Supervision of high-risk Low lying placenta nos or without hemorrhage, second trimester COVID-19 affecting in second trimester Depression Nausea/vomiting in Rh negative status during Supervision of high-risk Low lying placenta nos or without hemorrhage, second trimester COVID-19 affecting in second trimester Depression Nausea/vomiting in Rh negative status during Supervision of high-risk Low lying placenta nos or without hemorrhage, second trimester COVID-19 affecting in second trimester Depression Nausea/vomiting in Rh negative status during Supervision of high-risk Dizziness Low lying placenta nos or without hemorrhage, second trimester COVID-19 affecting in second trimester Depression Nausea/vomiting in Rh negative status during Supervision of high-risk Dizziness Low lying placenta nos or without hemorrhage, second trimester COVID-19 affecting in second trimester Depression Nausea/vomiting in Rh negative status during Supervision of high-risk COVID-19 affecting in second trimester Depression Nausea/vomiting in Rh negative status during Supervision of high-risk COVID-19 affecting in second trimester Depression Nausea/vomiting in Rh negative status during Supervision of high-risk Chief Complaint 22 WK OB 26 WK OB 29 WK OB 31 WK OB MONITORING MONITORING OB, dizzy spells 33 WK OB OB check per MH 35 WK OB 36 WK OB 37 WK OB 38 WK OB EXTENDED MONITORING EXTENDED MONITORING Reason for Visit Depression Nausea/vomiting in Rh negative status during Supervision of high-risk Low lying placenta nos or without hemorrhage, second trimester COVID-19 affecting in second trimester Depression Nausea/vomiting in Rh negative status during Supervision of high-risk Low lying placenta nos or without hemorrhage, second trimester COVID-19 affecting in second trimester Depression Nausea/vomiting in Rh negative status during Supervision of high-risk COVID-19 affecting in second trimester Depression Nausea/vomiting in Rh negative status during Supervision of high-risk Low lying placenta nos or without hemorrhage, second trimester COVID-19 affecting in second trimester Depression Nausea/vomiting in Rh negative status during Supervision of high-risk Low lying placenta nos or without hemorrhage, second trimester COVID-19 affecting in second trimester Depression Nausea/vomiting in Rh negative status during Supervision of high-risk Low lying placenta nos or without hemorrhage, second trimester COVID-19 affecting in second trimester Depression Nausea/vomiting in Rh negative status during Supervision of high-risk Dizziness Low lying placenta nos or without hemorrhage, second trimester COVID-19 affecting in second trimester Depression Nausea/vomiting in Rh negative status during Supervision of high-risk Dizziness Low lying placenta nos or without hemorrhage, second trimester COVID-19 affecting in second trimester Depression Nausea/vomiting in Rh negative status during Supervision of high-risk COVID-19 affecting in second trimester Depression Nausea/vomiting in Rh negative status during Supervision of high-risk COVID-19 affecting in second trimester Depression Nausea/vomiting in Rh negative status during Supervision of high-risk COVID-19 affecting in second trimester Depression tachycardia Nausea/vomiting in Rh negative status during Supervision of high-risk tachycardia Supervision of high-risk Chief Complaint 22 WK OB 26 WK OB 29 WK OB 31 WK OB MONITORING MONITORING OB, dizzy spells 33 WK OB OB check per MH 35 WK OB 36 WK OB 37 WK OB 38 WK OB EXTENDED MONITORING EXTENDED MONITORING VAGINAL DELIVERY LABOR & DELIVERY LABOR & DELIVERY VAGINAL DELIVERY VAGINAL DELIVERY Reason for Visit Depression Rh negative status during Low lying placenta nos or without hemorrhage, second trimester Nausea/vomiting in Supervision of high-risk Depression Rh negative status during COVID-19 affecting in second trimester Low lying placenta nos or without hemorrhage, second trimester Nausea/vomiting in Supervision of high-risk Depression Rh negative status during COVID-19 affecting in second trimester Nausea/vomiting in Supervision of high-risk Depression Rh negative status during COVID-19 affecting in second trimester Low lying placenta nos or without hemorrhage, second trimester Nausea/vomiting in Supervision of high-risk Depression Rh negative status during COVID-19 affecting in second trimester Low lying placenta nos or without hemorrhage, second trimester Nausea/vomiting in Supervision of high-risk Depression Rh negative status during COVID-19 affecting in second trimester Low lying placenta nos or without hemorrhage, second trimester Nausea/vomiting in Supervision of high-risk Depression Rh negative status during COVID-19 affecting in second trimester Dizziness Low lying placenta nos or without hemorrhage, second trimester Nausea/vomiting in Supervision of high-risk Depression Rh negative status during COVID-19 affecting in second trimester Dizziness Low lying placenta nos or without hemorrhage, second trimester Nausea/vomiting in Supervision of high-risk Depression Rh negative status during COVID-19 affecting in second trimester Nausea/vomiting in Supervision of high-risk Depression Rh negative status during COVID-19 affecting in second trimester Nausea/vomiting in Supervision of high-risk Depression Rh negative status during COVID-19 affecting in second trimester Nausea/vomiting in Supervision of high-risk Depression Rh negative status during COVID-19 affecting in second trimester tachycardia Nausea/vomiting in Supervision of high-risk tachycardia Supervision of high-risk Chorioamnionitis Depression Rh negative status during Status post vaginal delivery COVID-19 affecting in second trimester Decreased movements in third trimester Nausea/vomiting in Supervision of high-risk Variable heart rate decelerations, antepartum Chief Complaint 26 WK OB 29 WK OB 31 WK OB MONITORING MONITORING OB, dizzy spells 33 WK OB OB check per MH 35 WK OB 36 WK OB 37 WK OB 38 WK OB EXTENDED MONITORING EXTENDED MONITORING VAGINAL DELIVERY LABOR & DELIVERY LABOR & DELIVERY VAGINAL DELIVERY VAGINAL DELIVERY nipple pain, feeding assessment assessment emotional & physical concerns Reason for Visit Depression COVID-19 affecting in second trimester Low lying placenta nos or without hemorrhage, second trimester Nausea/vomiting in Supervision of high-risk Depression COVID-19 affecting in second trimester Nausea/vomiting in Supervision of high-risk Depression COVID-19 affecting in second trimester Low lying placenta nos or without hemorrhage, second trimester Nausea/vomiting in Supervision of high-risk Depression COVID-19 affecting in second trimester Low lying placenta nos or without hemorrhage, second trimester Nausea/vomiting in Supervision of high-risk Depression COVID-19 affecting in second trimester Low lying placenta nos or without hemorrhage, second trimester Nausea/vomiting in Supervision of high-risk Depression COVID-19 affecting in second trimester Dizziness Low lying placenta nos or without hemorrhage, second trimester Nausea/vomiting in Supervision of high-risk Depression COVID-19 affecting in second trimester Dizziness Low lying placenta nos or without hemorrhage, second trimester Nausea/vomiting in Supervision of high-risk Depression COVID-19 affecting in second trimester Nausea/vomiting in Supervision of high-risk Depression COVID-19 affecting in second trimester Nausea/vomiting in Supervision of high-risk Depression COVID-19 affecting in second trimester Nausea/vomiting in Supervision of high-risk Depression COVID-19 affecting in second trimester tachycardia Nausea/vomiting in Supervision of high-risk tachycardia Supervision of high-risk Depression Chorioamnionitis COVID-19 affecting in second trimester Decreased movements in third trimester Nausea/vomiting in Supervision of high-risk Variable heart rate decelerations, antepartum nipple pain Care and examination of lactating mother Care and examination of lactating mother Chills Depression Chief Complaint 29 WK OB 31 WK OB MONITORING MONITORING OB, dizzy spells 33 WK OB OB check per MH 35 WK OB 36 WK OB 37 WK OB 38 WK OB EXTENDED MONITORING EXTENDED MONITORING VAGINAL DELIVERY LABOR & DELIVERY LABOR & DELIVERY VAGINAL DELIVERY VAGINAL DELIVERY nipple pain, feeding assessment assessment emotional & physical concerns visit (obstetrics) PAP Reason for Visit Depression COVID-19 affecting in second trimester Nausea/vomiting in Supervision of high-risk Depression COVID-19 affecting in second trimester Low lying placenta nos or without hemorrhage, second trimester Nausea/vomiting in Supervision of high-risk Depression COVID-19 affecting in second trimester Low lying placenta nos or without hemorrhage, second trimester Nausea/vomiting in Supervision of high-risk Depression COVID-19 affecting in second trimester Low lying placenta nos or without hemorrhage, second trimester Nausea/vomiting in Supervision of high-risk Depression COVID-19 affecting in second trimester Dizziness Low lying placenta nos or without hemorrhage, second trimester Nausea/vomiting in Supervision of high-risk Depression COVID-19 affecting in second trimester Dizziness Low lying placenta nos or without hemorrhage, second trimester Nausea/vomiting in Supervision of high-risk Depression COVID-19 affecting in second trimester Nausea/vomiting in Supervision of high-risk Depression COVID-19 affecting in second trimester Nausea/vomiting in Supervision of high-risk Depression COVID-19 affecting in second trimester Nausea/vomiting in Supervision of high-risk Depression COVID-19 affecting in second trimester tachycardia Nausea/vomiting in Supervision of high-risk tachycardia Supervision of high-risk Depression Chorioamnionitis COVID-19 affecting in second trimester Decreased movements in third trimester Nausea/vomiting in Supervision of high-risk Variable heart rate decelerations, antepartum nipple pain Care and examination of lactating mother Care and examination of lactating mother Chills Depression Routine Follow-Up Chief Complaint Admit Date 22 wk ob October 20, 2024 9:1 9am R/O LABOR February 14, 2025 10: 44am Reason for Visit Admit Date AMA (advanced maternal age) multigravida 35+ October 20, 2024 9:19am Depression October 20, 2024 9:1 9am Low lying placenta, antepartum October 9:19am Obesity affecting October 20, 2024 9:19am October 20, 2024 9:1 9am Rh negative status during Apri l 2024 9:19am Supervision of high-risk October 20, 2024 9:19am Chief Complaint Admit Date 22 wk ob October 20, 2024 9:1 9am R/O LABOR February 14, 2025 10: 44am R/O LABOR February 16, 2025 11: 15am Reason for Visit Admit Date AMA (advanced maternal age) multigravida 35+ October 20, 2024 9:19am Depression October 20, 2024 9:1 9am Low lying placenta, antepartum October 9:19am Obesity affecting October 20, 2024 9:19am October 20, 2024 9:1 9am Rh negative status during Apri l 2024 9:19am Supervision of high-risk October 20, 2024 9:19am 38 weeks gestation of February 142024 10:44am AMA (advanced maternal age) multigravida 35+ February 14, 2025 10:44am False labor after 37 completed weeks of gestation February 14, 2025 10:44am Obesity affecting February 14, 2025 10:44am Supervision of high-risk Augus t 2024 10:44am Additional Source Comments INFORMATION SOURCE (unrecogn ized section and content) DATE CREATED AUTHOR 12/30/2017 [facility] DATE CREATED AUTHOR AUTHOR'S ORGANIZ ATION 12/31/2017 [facility] DATE CREATED AUTHOR AUTHOR'S ORGANIZ ATION 11/29/2021 [facility] DATE CREATED AUTHOR AUTHOR'S ORGANIZ ATION 01/20/2022 [facility] DATE CREATED AUTHOR AUTHOR'S ORGANIZ ATION 01/20/2022 [facility] DATE CREATED AUTHOR AUTHOR'S ORGANIZ ATION 12/07/2024 [facility] DATE CREATED AUTHOR AUTHOR'S ORGANIZ ATION 02/11/[address] [facility] DATE CREATED AUTHOR AUTHOR'S ORGANIZ ATION 02/17/2025 [facility] Reason for Visit (unrecogniz ed section and content) Reason Comments New Patient Migraine Reason Comments Follow-up Migraine Reason Comments Initial OB Visit Reason Comments Ear Pain right x 5 days, star kenisha with sinus pressure Reason Onset Date Comments Care 12/07/2024 Reason Onset Date Comments Care 12/21/2024 Reason Onset Date Comments Care 01/04/2025 Reason Onset Date Comments Care 01/12/2025 Reason Onset Date Comments Care 01/27/2025 Reason Onset Date Comments Care 02/01/2025 Reason Onset Date Comments Population Health Navigation Outreach 02/09/2025 to PCP/OB Reason Onset Date Comments Care 02/10/2025 <item> Privacy Markings (unrecogniz ed section and content) Section Author: Nica Gregory PROHIBITION ON REDISCLOSURE OF CONFIDENTIAL INFORMATION This notice accompanies a disclosure of information concerning a client made to you with the consent of such client. Care Teams (unrecognized sec tion and content) Team Status: Active Member Role Status Dates Noemi Dallas TIRE SORTER, TIRE SORTER-C Primary Care Provider Active Team Status: Inactive Member Role Status Dates Dr. Ivette Cornell MD Attending Provider Active Noemi Dallas TIRE SORTER, TIRE SORTER-C Primary Care Provider, Referring Provider Active Team Status: Inactive Member Role Status Dates Noemi Dallas NP, TIRE SORTER-C Primary Care Provider Active Dr. Ivette Cornell MD Attending Provider, Referr ing Provider Active Team Status: Inactive Member Role Status Dates Noemi Dallas NP, TIRE SORTER-C Primary Care Provider Active Batsheva Krishna TIRE SORTER, TIRE SORTER-C Attending Provider, Referring Provider Active Team Status: Active Member Role Status Dates Noemi Dallas NP, TIRE SORTER-C Primary Care Provider Active Dr. Ivette Cornell MD Attending Provider, Referr ing Provider Active Team Status: Inactive Member Role Status Dates Noemi Dallas NP, TIRE SORTER-C Primary Care Provider, Referring Provider Active Dr. Ivette Cornell MD Attending Provider Active Team Status: Inactive Member Role Status Dates Noemi Dallas NP, TIRE SORTER-C Referring Provider Active Jesus Marinelli CNM Attending Provider Active Team Status: Inactive Member Role Status Dates Dr. Ivette Cornell MD Attending Provider, Referr ing Provider Active Noemi Dallas NP, TIRE SORTER-C Primary Care Provider Active Team Status: Inactive Member Role Status Dates Batsheva Krishna TIRE SORTER, TIRE SORTER-C Attending Provider Active Noemi Dallas TIRE SORTER, TIRE SORTER-C Primary Care Provider, Referring Provider Active Team Status: Inactive Member Role Status Dates Noemi Dallas NP, TIRE SORTER-C Referring Provider Active Dr. Ivette Cornell MD Attending Provider Active Team Status: Inactive Member Role Status Dates Dr. Lizzeth Abarca DO Attending Provider Activ daria Dallas TIRE SORTER, TIRE SORTER-C Primary Care Provider, Referring Provider Active Team Status: Inactive Member Role Status Dates Noemi Dallas TIRE SORTER, TIRE SORTER-C Primary Care Provider, Referring Provider Active Batsheva Krishna NP, TIRE SORTER-C Attending Provider Active Team Status: Inactive Member Role Status Dates Noemi Dallas NP, TIRE SORTER-C Primary Care Provider, Referring Provider Active Alma Rosa Peña , CNM Attending Provider Active Team Status: Active Member Role Status Dates Noemi Dallas TIRE SORTER, TIRE SORTER-C Primary Care Provider Active Alma Rosa Peña CNM Referring Provider, Other Provid er Active Dr. Lizzeth Abarca DO Attending Provider Activ e Team Status: Inactive Member Role Status Dates Noemi Dallas TIRE SORTER, TIRE SORTER-C Primary Care Provider, Referring Provider Active Dr. Lizzeth Abarca DO Attending Provider Activ e Team Status: Inactive Member Role Status Dates Noemi Dallas TIRE SORTER, TIRE SORTER-C Primary Care Provider Active Alma Rosa Peña CNM Attending Provider, Referring Pr ovider Active Team Status: Inactive Member Role Status Dates Noemi Dallas TIRE SORTER, TIRE SORTER-C Primary Care Provider Active Dr. Lizzeth Abarca DO Attending Provider, Refe rring Provider Active Team Status: Inactive Member Role Status Dates Noemi Dallas TIRE SORTER, TIRE SORTER-C Primary Care Provider, Referring Provider Active Jesus Marinelli CNM Attending Provider Active Team Status: Inactive Member Role Status Dates Noemi Dallas TIRE SORTER, TIRE SORTER-C Primary Care Provider Active Jesus Marinelli CNM Attending Provider, Referring Pro vider Active Team Status: Active Member Role Status Dates Noemi Dallas TIRE SORTER, TIRE SORTER-C Primary Care Provider Active Alma Rosa Peña CNM Attending Provider , Referring Provider, Other Provider Active Team Status: Active Member Role Status Dates Noemi Dallas TIRE SORTER, TIRE SORTER-C Primary Care Provider Active Dr. Ivette Cornell MD Admit Provid er, Attending Provider, Referring Provider, Other Provider Active Team Status: Active Member Role Status Dates Noemi Dallas TIRE SORTER, TIRE SORTER-C Primary Care Provider Active Dr. Ivette Cornell MD Admit Provid er, Referring Provider, Other Provider Active Dr. Lizzeth Abarca DO Attending Provider Activ e Team Status: Active Member Role Status Dates Noemi Dallas TIRE SORTER, TIRE SORTER-C Primary Care Provider Active Dr. Lizzeth Abarca DO Admit Prov ider, Attending Provider, Other Provider Active Team Status: Inactive Member Role Status Dates Noemi Dallas TIRE SORTER, TIRE SORTER-C Primary Care Provider Active Dr. Lizzeth Abarca DO Admit Provider, Attendin g Provider Active Team Status: Inactive Member Role Status Dates Noemi Dallas TIRE SORTER, TIRE SORTER-C Primary Care Provider, Referring Provider Active Fauzia Bernard TIRE SORTER, TIRE SORTER-C Attending Provider Active Team Status: Active Member Role/Relationship Status Dates Noemi Dallas TIRE SORTER, TIRE SORTER-C Primary Care Provider Active Team Status: Inactive Member Role/Relationship Status Dates Noemi Dallas TIRE SORTER, TIRE SORTER-C Primary Care Provider Active Start: October 20, 2024 End: October 20, 2024 Noemi Dallas TIRE SORTER, TIRE SORTER-C Referring Provider Active S tart: October 20, 2024 End: October 20, 2024 Dr. Lizzeth Abarca DO Attending Provider Activ e Start: October 20, 2024 End: October 20, 2024 Team Status: Inactive Member Role/Relationship Status Dates Noemi Dallas TIRE SORTER, TIRE SORTER-C Primary Care Provider Active Start: February 14, 2025 End: February 14, 2025 Dr. Shade Alexander MD Attending Provider Active Start: February 14, 2025 End: February 14, 2025 Dr. Shade Alexander MD Referring Provider Active Start: February 14, 2025 End: February 14, 2025 Team Status: Inactive Member Role/Relationship Status Dates Noemi Dallas NP, TIRE SORTER-C Primary Care Provider Active Start: February 16, 2025 End: February 16, 2025 Dr. Lizzeth Ramos MD Attending Provider Active Start: February 16, 2025 End: February 16, 2025 Dr. Lizzeth Ramos MD Referring Provider Active Start: February 16, 2025 End: February 16, 2025 Goals (unrecognized section and content) Goals may be documented in a n alternate sectionGoals may be documented in an alternate sectionGoals may be documented in an alternate sectionGoals may be documented in an alternate sectionGoals may be documented in an alternate sectionGoals may be documented in an alternate sectionGoals may be documented in an alternate sectionGoals may be documented in an alternate sectionGoals may be documented in an alternate sectionGoals may be documented in an alternate sectionGoals may be documented in an alternate sectionGoals may be documented in an alternate sectionGoals may be documented in an alternate sectionGoals may be documented in an alternate sectionGoals may be documented in an alternate section Source Comments (unrecognize d section and content) In the event this informatio n is protected by the Federal Confidentiality of Alcohol and Drug Abuse Patient Records regulations: The Federal rules restrict any use of the information to criminally investigate or prosecute any alcohol or drug abuse patient.[facility] the event this information is protected by the Federal Confidentiality of Alcohol and Drug Abuse Patient Records regulations: The Federal rules restrict any use of the information to criminally investigate or prosecute any alcohol or drug abuse patient.[facility] HealthIn the event this information is protected by the Federal Confidentiality of Alcohol and Drug Abuse Patient Records regulations: The Federal rules restrict any use of the information to criminally investigate or prosecute any alcohol or drug abuse patient.[facility] HealthIn the event this information is protected by the Federal Confidentiality of Alcohol and Drug Abuse Patient Records regulations: The Federal rules restrict any use of the information to criminally investigate or prosecute any alcohol or drug abuse patient.[facility] HealthIn the event this information is protected by the Federal Confidentiality of Alcohol and Drug Abuse Patient Records regulations: The Federal rules restrict any use of the information to criminally investigate or prosecute any alcohol or drug abuse patient.[facility] HealthIn the event this information is protected by the Federal Confidentiality of Alcohol and Drug Abuse Patient Records regulations: The Federal rules restrict any use of the information to criminally investigate or prosecute any alcohol or drug abuse patient.[facility] HealthIn the event this information is protected by the Federal Confidentiality of Alcohol and Drug Abuse Patient Records regulations: The Federal rules restrict any use of the information to criminally investigate or prosecute any alcohol or drug abuse patient.[facility] HealthIn the event this information is protected by the Federal Confidentiality of Alcohol and Drug Abuse Patient Records regulations: The Federal rules restrict any use of the information to criminally investigate or prosecute any alcohol or drug abuse patient.[facility] HealthIn the event this information is protected by the Federal Confidentiality of Alcohol and Drug Abuse Patient Records regulations: The Federal rules restrict any use of the information to criminally investigate or prosecute any alcohol or drug abuse patient.[facility] HealthIn the event this information is protected by the Federal Confidentiality of Alcohol and Drug Abuse Patient Records regulations: The Federal rules restrict any use of the information to criminally investigate or prosecute any alcohol or drug abuse patient.[facility] HealthIn the event this information is protected by the Federal Confidentiality of Alcohol and Drug Abuse Patient Records regulations: The Federal rules restrict any use of the information to criminally investigate or prosecute any alcohol or drug abuse patient.[facility] HealthIn the event this information is protected by the Federal Confidentiality of Alcohol and Drug Abuse Patient Records regulations: The Federal rules restrict any use of the information to criminally investigate or prosecute any alcohol or drug abuse patient.[facility] HealthIn the event this information is protected by the Federal Confidentiality of Alcohol and Drug Abuse Patient Records regulations: The Federal rules restrict any use of the information to criminally investigate or prosecute any alcohol or drug abuse patient.[facility] FOR RECORDS PERTAINING TO PATIENTS WHO ARE [...] BE BASED ON THE PRIMARY CLINICAL RECORDS. [facility] [employer] [facility] provides no warranty or guarantee of the accuracy or completeness of information in this document.
--- OUTSIDE RECORDS SUMMARY | 2025-02-17 07:45 | XMS RPT_ITS | CCD ---
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 Name Role Phone Tizzano, Mateo P Unavailable [...] Unavailable Unavailable Mervin, Clarice D Unavailable Unavailable Luverne, Clarice D Unavailable Unavailable Luverne, Clarice D Unavailable Unavailable Luverne, Clarice D Unavailable Unavailable Mervin, Clarice D Unavailable Unavailable Luverne, Clarice D Unavailable Unavailable Mervin, Clarice D Unavailable Unavailable Mervin, Clarice D Unavailable Unavailable Luverne, Clarice D Unavailable Unavailable Luverne, Clarice D Unavailable Unavailable Mervin, Clarice D Unavailable Unavailable Luverne, Clarice D Unavailable Unavailable Mervin, Clarice D Unavailable Unavailable Mervin, Clarice D Unavailable Unavailable Mervin, Clarice D Unavailable Unavailable Ezike, Duane A Unavailable Unavailable Ezike, Duane A Unavailable Unavailable Mervin, Clarice D Unavailable Unavailable Shakir, Guru W Unavailable Unavailable Shakir, Guru W Unavailable Unavailable Mervin, Clarice D Unavailable Unavailable Mervin, Clarice D Unavailable Unavailable Luverne, Clarice D Unavailable Unavailable Luverne, Clarice D Unavailable Unavailable Mervin, Clarice D Unavailable Unavailable Luverne, Clarice D Unavailable Unavailable Tizzano, Mateo P Unavailable Unavailable Mervin, Clarice D Unavailable Unavailable Tizzano, Matoe P Unavailable Unavailable Tizzano, Mateo P Unavailable Unavailable Luverne, Clarice D Unavailable Unavailable Tizzano, Mateo P Unavailable Unavailable Luverne, Clarice D Unavailable Unavailable Tizzano, Mateo P Unavailable Unavailable Luverne, Clarice D Unavailable Unavailable Tizzano, Mateo P Unavailable Unavailable Mervin, Clarice D Unavailable Unavailable Tizzano, Mateo P Unavailable Unavailable Mervin, Clarice D Unavailable Unavailable GUEVARA GILLIAM Unavailable Unavailable MERVIN, CLARICE D. Unavailable Unavailable Alie PREPAROLE COUNSELING AIDE, Noemi Primary Care Provider AlieLuizahy L Unavailable Unavailable Unavailable ProciousJose L Unavailable Free, Text Entry Unavailable Unavailable AlieLuizahy L Unavailable NewtonJose L Unavailable Unavailable Bryce Jaquez Unavailable Unavailable Dr. Ivette Cornell Attending Provider [phone] Alie ON AIR TALENT, ON AIR TALENT-C Noemi Primary Care Provider [phone] Alie ON AIR TALENT, ON AIR TALENT-C Noemi Referring Provider [phone] Alie ON AIR TALENT, ON AIR TALENT-C Noemi Primary Care Provider [phone] Alie ON AIR TALENT, ON AIR TALENT-C Noemi Referring Provider [phone] Dr. Ivette Cornell Attending Provider [phone] SUZANNE Marinelli Attending Provider [phone] Tomi CHAMBERLAIN, ON AIR TALENT-C Batsheva Attending Provider [phone] Alie ON AIR TALENT, ON AIR TALENT-C Noemi Primary Care Provider [phone] Alie ON AIR TALENT, ON AIR TALENT-C Noemi Referring Provider [phone] Dr. Ivette Cornell Attending Provider [phone] Dr. Lizzeth Abarca Attending Provider [phone] SUZANNE Peña Attending Provider SUZANNE Peña Referring Provider SUAZNNE Peña Other Provider Alie ON AIR TALENT, ON AIR TALENT-C Noemi Referring Provider [phone] Alie ON AIR TALENT, ON AIR TALENT-C Noemi Primary Care Provider [phone] Tomi CHAMBERLAIN, ON AIR TALENT-C Batsheva Attending Provider [phone] SUZANNE Marinelli Attending Provider [phone] Aile ON AIR TALENT, ON AIR TALENT-C Noemi Referring Provider [phone] Dr. Ivette Cornell Attending Provider [phone] Dr. Lizzeth Abarca Attending Provider [phone] Alie ON AIR TALENT, ON AIR TALENT-C Noemi Primary Care Provider Tomi ON AIR TALENT, ON AIR TALENT-C Batsheva Attending Provider [phone] Casey, SUZANNE St Attending Provider Casey, SUZANNE Rootsay Referring Provider Casey, SUZANNE Alma Rosa Other Provider SUZANNE Marinelli Attending Provider [phone] Dr. Ivette Cornell Admit Provider [phone] Dr. Ivette Cornell Referring Provider [phone] Dr. Ivette Cornell Other Provider [phone] Dr. Lizzeth Abarca Admit Provider Dr. Lizzeth Abarca Other Provider Alie ON AIR TALENT, ON AIR TALENT-C Noemi Referring Provider [phone] Ivetet Cornell Attending Provider [phone] Marco Antonio ON AIR TALENT, ON AIR TALENT-C Fauzia Attending Provider Alie ON AIR TALENT, ON AIR TALENT-C Noemi Primary Care Provider Alie ON AIR TALENT, ON AIR TALENT-C Noemi Referring Provider [phone] Dr. Lizzeth Abarca Attending Provider [phone] Unavailable Primary Care Provider UnavailRAZ Thakkar Attending Unavailable JESUS MARINELLI Referring Unavailable NOEMI STRANGE Primary Care Unavailable HARLEY SEO Attending Unavailable JESUS MARINELLI Referring Unavailable ALIENOEMI BIANCHI L Primary Care Unavailable Alie ON AIR TALENT-C, Noemi Primary Care Provider Alie ON AIR TALENT-C, Noemi Referring Provider Dr. Lizzeth Abarca DO Attending Provider Catherine REYNOLDS, Dr. Scruggs Attending Provider Catherine REYNOLDS, Dr. Scruggs Referring Provider [phone] Richard REYNOLDS, Dr. Moreau Attending Provider Richard REYNOLDS, Dr. Moreau Referring Provider Jesus Marinelli Attending Unavailable Alie ON AIR TALENT, Noemi Primary Care Unavailable Alie ON AIR TALENT, Noemi Referring Unavailable Ivette Cornell Attending Unavailable Alie ON AIR TALENT, Noemi Primary Care Unavailable Alie ON AIR TALENT, Noemi Referring Unavailable Alie ON AIR TALENT, Noemi Primary Care Unavailable Alie ON AIR TALENT, Noemi Referring Unavailable Tomi ON AIR TALENT, Batsheva Attending Unavailable Alie ON AIR TALENT, Noemi Primary Care Unavailable Radha Jackson Attending Unavailable Alie ON AIR TALENT, Noemi Primary Care Unavailable Alie ON AIR TALENT, Noemi Referring Unavailable Lizzeth Abarca Attending UnavailShade Crenshaw Attending Unavailable Shade Alexander Referring Unavailable Alie ON AIR TALENT, Noemi Primary Care Unavailable Alie ON AIR TALENT, Noemi Primary Care Unavailable Lizzeth Abarca Admitting Unavailabl Lizzeth Pierce Attending Unavailabl e Ivette Cornell Attending Unavailable Aneta Ivette Referring Unavailable Alie ON AIR TALENT, Noemi Primary Care Unavailable Alie ON AIR TALENT, Noemi Primary Care Unavailable Jesus Marinelli Attending Unavailable Jesus Mairnelli Referring Unavailable Alie ON AIR TALENT, Noemi Primary Care Unavailable Lizzeth Ramos Attending Unavailable Lizzeth Ramos Referring Unavailable SHADE ALEXANDER Attending Unavailable SHANNON PAULINE Referring Unavailable PLOTPRABHA GIRARD Attending Unavailable CHANDA HUFFMAN Attending Unavail able LIZZETH RAMOS Attending Unavailable PLOTTS PRABHA Attending Unavailable SHANNON, PAULINE Referring Unavailable SHANNON PAULINE Attending Unavailable RICHARD, LIZZETH Attending Unavailable PLOTTS, PRABHA Referring Unavailable PAULINE NORWOOD Attending Unavailable PLOTTS PRABHA Attending Unavailable CATHERINE SHADE L Attending Unavailable CATHERINE SHADE L Attending Unavailable PLOTTS PRABHA Referring Unavailable Allergies Allergy Classification Reported Allergen(s) Allergy Type Date of Onset Reaction(s) Facility Opioid Agonists (7 sources) Codeine; Translations: [codeine] Drug Allergy 1 Nausea and Vomiting [facility] Sulfonamides (antibiotic) (4 sources) Sulfonamides (Antibiotic); Translations: [Sulfa Drugs] Drug Allergy Unknown [facility] Work Phone: (20 sources) codeine; Translations: [codeine] Drug Allergy 3 Vomiting [facility] Rep[facility] (9 sources) Sulfonamides (Antibiotic); Translations: [sulfa drugs] Propensity to adverse reactions to drug (disorder) AOF, Unknown [facility] Repository (14 sources) Sulfonamides (Antibiotic); Translations: [SULFA (SULFONAMIDE ANTIBIOTICS)] Propensity to adverse reactions 8 [facility] Work Phone: (2 sources) Sulfonamides (Antibiotic) Allergy to substance 5 PT UNSURE OF REACTION [facility] (1 source) Sulfonamides (Antibiotic) Drug allergy (disorder) 5 [facility] Repository Medications Current Medications Medication Drug [...] September 28, 2023 1:38pm hx covid Multivit 34-Eyfq-Upnayo 1-Dh a (Pnv-Dha) 27 mg iron-1 mg -300 mg capsule (15 sources) Start: 02-24-2023 Multivit 47-Ir on-Folate 1-Dha (Pnv-Dha) 27 mg iron-1 mg -300 mg capsule Active 1 NMA PO DAILY February 24, 2023 12:00am Start: 02-24-2023 take 1 capsule by mo ut once daily Multivit 30-Tjjg-Fvdmuq 1-Dha (Pnv-Dha) 27 mg iron-1 mg -300 mg capsule Active 1 CAP PO DAILY February 24, 2023 12:00am Start: 02-24-2023 take 1 capsule by mo uth once daily Multivit 13-Ghdu-Hjqquw 1-Dha (Pnv-Dha) 27 mg iron-1 mg -300 [...] Agent, Anti-coagulant Start: 11-05-2023 End: 07-15-2024 Lactic Oise-Wlrpzr-Viitpr ium (Phexxi) 1.8-1-0.4 % gel Discontinued 1 [...] 400 mg oral tablet (3 sources) Uncompetitive J-yebruu-R-aspartat e Receptor Antagonist, Sigma-1 Agonist Start: 11-26-2021 [...] Quantity: 40 Refills: 1 Ordered: 18-Jan-2021 Ross GENEEmiJHONGema Start : 26-Jul-2020 Active levonorgestrel 0.863819 mg/hr intrauterine system (6 sources) Progestin, Progestin-containin [...] Q8H as needed for nausea and vomiting 30 June 30, 2024 1:00am February 14, 2025 11:19am [...] needed for nausea and vomiting 12 0 June 29, 2024 1:00am February 14, 2025 [...] (11 sources) Headache; Translations: [Headache] 09-14-2023 Episodic Immunizations and screening for infectious disease (8 [...] Obesity complicating , second trimester; Translations: [Obesity complicating , second trimester] Onset: 11-16-2024 Chronic Other complications of (1 source) Obesity complicating , unspecified trimester; Translations: [Obesity complicating , unspecified trimester] Onset: 08-24-2024 Chronic Other complications of (20 sources) High risk ; Translations: [Supervision of high risk , unspecified, unspecified trimester] Onset: 11-16-2024 02-24-2023 Episodic Comment on above: PRR, , RICHARD , PC: Víctor, : Renato HERRERA , RICHARD , surprise Renato Other complications [...] doing well with zofran Other complications of (10 sources) Disease caused [...] of mother, antepartum condition or complication] Onset: 02-15-2025 09-27-2023 Episodic Other complications of (3 sources) [...] unspecified, second trimester] Onset: 02-15-2025 Episodic Other complications of (1 source) Uterine size-date discrepancy, third trimester; Translations: [Uterine size-date discrepancy, third trimester (HCC)] Onset: 01-12-2025 Episodic Other ear and sense organ disorders [...] Translations: [History of infection] 11-16-2024 Episodic Other and delivery including normal (20 sources) Early stage of ; Translations: [Encounter for supervision of normal , unspecified, unspecified trimester] Onset: 08-18-2024 02-04-2023 Episodic Comment on above: nl anatomy,Discussed genetic/carrier testing - declined. Requesting limited cervical examsRequesting lower epidural dosage no urge to push last time Neg GBS declined gen etic, ntd, & carrier testing. anatomy reviewed, normal anatomy Other screening for suspected conditions (not mental [...] of ; Translations: [38 weeks gestation of ] Onset: 02-15-2025 Episodic Residual codes; unclassified (1 source) 39 weeks gestation of ; Translations: [39 weeks gestation of (HCC)] Onset: 02-16-2025 Episodic Residual codes; unclassified (1 source) 36 weeks gestation of ; Translations: [36 weeks gestation of (HCC)] Onset: 01-27-2025 Episodic Residual codes; unclassified (1 source) 34 weeks gestation of ; Translations: [34 weeks gestation of (HCC)] Onset: 01-12-2025 Episodic Residual codes; unclassified (1 source) 32 [...] Problem Classification Problem Date Documented Date Episodic/Chronic Hemorrhage during ; abruptio placenta; placenta previa [...] 62% repeat scan at 28 we eks Other complications of (20 sources) Other specified related conditions, unspecified trimester; Translations: [Other specified complications of , antepartum condition or complication] Onset: 11-16-2024 03-05-2023 Episodic Other complications of (20 sources) Supervision of high risk , unspecified, unspecified trimester; Translations: [Supervision of unspecified high-risk ] Onset: 08-24-2024 03-05-2023 Episodic Other complications of (2 sources) Supervision of elderly multigravida, second trimester; Translations: [Supervision of elderly multigravida, second trimester] Onset: 11-16-2024 Episodic Other complications of (1 source) Other specified related conditions, second trimester; Translations: [Other specified related conditions, second trimester] Onset: 10-20-2024 Episodic Other complications of (2 sources) Supervision of elderly multigravida, unspecified trimester; Translations: [Supervision of elderly multigravida, unspecified trimester] Onset: 08-24-2024 Episodic Other complications of (1 source) Spotting complicating , unspecified trimester; Translations: [Spotting complicating , unspecified trimester] Onset: 08-05-2024 Episodic Other complications of (1 source) Supervision of elderly multigravida, third trimester; Translations: [Multigravida of advanced maternal age in third trimester (HCC)] Onset: 11-16-2024 Episodic Residual codes; unclassified (2 sources) Unspecified blood type, Rh negative; Translations: [Unspecified blood type, Rh negative] Onset: 10-20-2024 Episodic Residual codes; unclassified (1 source) 13 weeks gestation of ; Translations: [13 weeks gestation of ] Onset: 08-24-2024 Episodic Residual codes; unclassified (1 source) 10 weeks gestation of ; Translations: [10 weeks gestation of ] Onset: 07-28-2024 Episodic Residual codes; unclassified (1 source) Personal history of other complications of , childbirth and the puerperium; Translations: [History of vacuum extraction assisted delivery] Onset: 11-16-2024 Episodic Unclassified (11 sources) Finding of menstrual bleeding; Translations: [Menstruation] Comment on above: Onset age 10 years; Results Test Name Value Interpretation Reference Range Facility OB Triage Physician Noteon 0 02-16-2025 OB Triage Physician Note [facility] Medical Records Department [address] [place] [address] OB Triage Physician Note 02/16/252018 MR#: [id number] Acct: [id number] Name: ANAHY ESCALANTE Rep #: [id number] : 1990 34 From: Lizzeth Ramos MD [...] Final RICHARD: 02/23/25 Gestational age: 39 PFSH [facility] Medical History (Updated 02/16/25 @ 20:23 by [...] Status post vaginal delivery History of tonsillectomy [place] teeth removed History of placement of ear tubes Social History adopted: No household members: spouse and children number of children: 1 current occupational status: employed 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 Date Name GA/Weeks Outcome Route Bth Weight Gen Labor Lgth Anesthesia Del Locatn Provider FOB 09/25/23 Víctor 38 live - full term vacuum 7#10 Male epidural [facility] Lee Harrison Delivery Date: 09/25/23 Last [...] Cosigner Signature (if applicable): Date CC: SPEEDY Strange; Dr. Lizzeth Ramos MD Signed Normal [facility] (ROM) Rupture Of Membraneson 02-14-2025 ROM Negative Normal Negative [facility] Comment on above: Result Comment: Amni otic fluid not present indicates No Rupture of Membranes at time of specimen collection. Performed By: #### L 205.1000 ####[facility] [id number] [place], [place], [id number] [facility]-14-2025 [facility] Telephone (OBGYWM) ----- ANAHY ESCALANTE ([id number]) 1990 F Date Time Provider Department 02/14/25 SHADE ALEXANDER During your visit today, we recorded the following information about you: Lizzeth Mcfarland RN 02/14/2025 9:40 AM Signed 38w5d Patient called with c/o contractions since 9 PM. They are every 3-10 min. Most are pain rate of 2-3, with others more painful. Denies LOF, VB, or diarrhea. She is feeling a lot of pressure. Has not had a cervical exam yet this . Good FM. No openings and schedules on hold. Can patient be added to someone's schedule or do you prefer she go to [facility]? TAVARES Hernandez Jennifer, RN 02/14/2025 10:22 AM Signed RR recommended in office worked in or [facility] - patient's choice. Called patient. She has been carroll every 5 minutes consistently since last spoke with office. Having hot flashes with them. Recommended [facility] to rule out labor. Charge nurse notified. Updated [facility] faxed. Patient is coming from [place]. TAVARES Hernandez Rebecca L, MD 02/14/2025 10:46 AM Signed noted. Shade Alexander MD Allergies As of Date: 02/14/2025 Noted Allergy Reaction CODEINE 11/15/2024 11 - Vomiting SULFA (SULFONAMIDE ANTIBIOTICS) 06/20/2008 Date Reviewed: 02/10/2025 Reviewed by: Morteza Gifford LPN - Fully Assessed Reason for Visit: OB Contractions [Other] Prescriptions as of 02/14/2025 - aspirin, enteric coated (ECOTRIN LOW STRENGTH) 81 mg EC tablet Take 1 tablet by mouth once daily. - sertraline (ZOLOFT) 100 mg tablet Take 100 mg by mouth once daily. - PNV no.95/ferrous fum/folic ac ( ORAL) Take 1 tablet by mouth once daily. Problem List As Of Date 02/14/2025 Noted Resolved History of vacuum extraction assisted delivery *11/16/2024 Rh negative state in antepartum period (HCC) [O*11/16/2024 Multigravida of advanced maternal age in second*11/16/2024 Obesity affecting in second trimester*11/16/2024 Low lying placenta nos or without hemorrhage, s*11/16/2024 Major depressive disorder with current active e*11/16/2024 History of infection [Z87.68] with care elsewhere in secon*11/16/2024 Elevated glucose [R73.09] 12/08/2024 Encounter Status:Closed by SHADE ALEXANDER on 02/14/25 [facility] OB Triage Physician Noteon 0 02-14-2025 OB Triage Physician Note [facility] Medical Records Department [address] [place] [address] OB Triage Physician Note 02/14/25 1721 MR#: [id number] Acct: [id number] Name: ANAHY ESCALANTE Rep #: [id number] : 1990 34 From: Shade Alexander MD PCP: SPEEDY Taylor Status:DEP CLI Y Location: [facility] HPI - General General Date of Admission: 02/14/25 Date of Service: 02/14/25 Chief Complaint: contractions HPI Narrative ANAHY ESCALANTE, is a 34 F who presents 2 para 1 who presents at 38-5/7 weeks gestation complaining contractions. 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 02/14/25 8819 Date Shade Alexander MD Cosign Signature (if applicable): Date CC: SPEEDY Strange; Dr. Shade Alexander MD Signed Normal [facility] URINE OB DIP B/Oon 5 Glucose Ql (U) Negative Neg mg/dL [facility] Interpretation and review of laboratory results Normal [facility] Protein.monoclonal (U) [Mass/Vol] Negative Neg mg/dL [facility] URINE OB DIP B/Oon 5 Glucose Ql (U) Negative Neg mg/dL [facility] Interpretation and review of laboratory results Normal [facility] Protein.monoclonal (U) [Mass/Vol] Negative Neg mg/dL [facility] ROUTINE, GROUP B ST REPTOCOCCUS BY PCRon 01-27-2025 ROUTINE, GROUP B STREPTOCOCCUS BY PCR Not detected Normal [facility] Comment on above: Performed By: #### G BPCR ####[facility] [id number] [address] [place] [facility] URINE OB DIP B/Oon 5 Glucose Ql (U) Negative Neg mg/dL [facility] Interpretation and review of laboratory results Normal [facility] Protein.monoclonal (U) [Mass/Vol] Negative Neg mg/dL [facility] Examination level ultrasound on 01-12-2025 Indication Detailed [...] 6 oz EFW by: Hadlock (HC-AC-FL) Extended Time Clock Mechanic 7.2 mm Extremities / Bony Struc FL [...] normal LVOT view: normal 3-vessel view: normal 3-vhpwan-hsyczmj view: normal Heart / Thorax Situs: situs [...] Lt ovary: Not visualized Performed By: Jennifer Ledesma, SHIVAM, RVT Read By: Alem Nelson M.D. MATERNAL MEDICINE [facility] Radiology Study observation (narrative) [facility] GLUCOSE GESTATIONAL, 1 HOURo n 12-09-2024 Glucose 1 Hr post Unsp challenge [Mass/Vol] 131 mg/dL Normal 74-179 [facility] Comment on above: Order Comment: Speci panfilo Type: BLOOD SPECIMENOrdering Facility: [facility] Address: [address] [place] [address] Result Comment: [facility] Congress of Obstetricians and Gynecologists (Harry/Nohemi) guidelines state gestational diabetes mellitus is present when 2 or more of the plasma glucose concentrations meet or exceed the following levels: fastin mg/dl, 1 hr: 180 mg/dl, 2 hr: 155 mg/dl, and 3 hr: 140 mg/dl. Performed By: #### G TGST1 ####[facility] LAB[facility] [id number] [address] OF [facility] GLUCOSE GESTATIONAL, 2 HOURo n 12-09-2024 Glucose 2 Hr post Unsp challenge [Mass/Vol] 112 mg/dL Normal 74-154 [facility] Comment on above: Order Comment: Speci men Type: BLOOD SPECIMENOrdering Facility: [facility] Address: [address] [place] [address] Result Comment: [facility] Congress of Obstetricians and Gynecologists (Harry/Nohemi) guidelines state gestational diabetes mellitus is present when 2 or more of the plasma glucose concentrations meet or exceed the following levels: fastin mg/dl, 1 hr: 180 mg/dl, 2 hr: 155 mg/dl, and 3 hr: 140 mg/dl. Performed By: #### G TGST2 ####[facility] LABCLIA [id number] [place] [address] [place] GLUCOSE GESTATIONAL, 3 HOURo n 12-09-2024 Glucose 3 Hr post Unsp challenge [Mass/Vol] 102 mg/dL Normal 74-139 [facility] Comment on above: Order Comment: Speci men Type: BLOOD SPECIMENOrdering Facility: [facility] Address: [address] [place] [address] Result Comment: [facility] Congress of Obstetricians and Gynecologists ([place]) guidelines state gestational diabetes mellitus is present when 2 or more of the plasma glucose concentrations meet or exceed the following levels: fastin mg/dl, 1 hr: 180 mg/dl, 2 hr: 155 mg/dl, and 3 hr: 140 mg/dl. Performed By: #### G TGST3 ####[facility] LABIA [id number] [place] [address] [place] GLUCOSE GESTATIONAL, FASTING on 12-09-2024 Glucose post fast [Mass/Vol] 85 mg/dL Normal 74-94 [facility] Comment on above: Order Comment: Speci men Type: BLOOD SPECIMENOrdering Facility: [facility] Address: [address] [place] [address] Result Comment: [facility] Congress of Obstetricians and Gynecologists ([place]/[facility]) guidelines state gestational diabetes mellitus is present when 2 or more of the plasma glucose concentrations meet or exceed the following levels: fastin mg/dl, 1 hr: 180 mg/dl, 2 hr: 155 mg/dl, and 3 hr: 140 mg/dl. Performed By: #### G TGSTF ####[facility] LABIA [id number] [place] [address] [place] ABO AND RH ONLYon 12-07-2024 ABO A Normal [facility] Comment on above: Order Comment: Speci men Type: BLOOD SPECIMENOrdering Facility: [facility] Address: [address] [place] [address] Performed By: #### T SPN, ABOR ####CC [facility] BLOOD BANKIA [id number] [place] [address] [place] Rh Nom (Bld) Negative Normal [facility] Comment on above: Order Comment: Speci men Type: BLOOD SPECIMENOrdering Facility: [facility] Address: [address] [place] [address] Performed By: #### T SPN, ABOR ####CC MAIN BLOOD BANKCLIA [id number] [place] [address] [place] CBC W Auto Differential pane l (Bld)on 12-07-2024 Basophils (Bld) [#/Vol] 10*3/uL Normal <0.11 [facility] Comment on above: Order Comment: Speci men Type: BLOOD SPECIMENOrdering Facility: [facility] Address: [address] [place] [address] Performed By: #### 5 7021-8 ####[facility]IT[facility] [id number] [place] [address] [place] Basophils/100 WBC (Bld) 0.2 % Normal [facility] Comment on above: Order Comment: Speci men Type: BLOOD SPECIMENOrdering Facility: [facility] Address: [address] [place] [address] Performed By: #### 5 7021-8 ####[facility] [id number] [place] [address] [place] Differential cell count method Nom (Bld) Auto Normal [facility] Comment on above: Order Comment: Speci men Type: BLOOD SPECIMENOrdering Facility: [facility] Address: [address] [place] [address] Performed By: #### 5 7021-8 ####[facility] MILLFORT JONESNCLIA [id number] [place] [address] [place] Eosinophils (Bld) [#/Vol] 0.04 10*3/uL Normal <0.46 [facility] Comment on above: Order Comment: Speci men Type: BLOOD SPECIMENOrdering Facility: [facility] Address: [address] [place] [address] Performed By: #### 5 7021-8 ####[facility] BRIDGER [id number] [place] [address] [place] Eosinophils/100 WBC (Bld) 0.3 % Normal [facility] Comment on above: Order Comment: Speci men Type: BLOOD SPECIMENOrdering Facility: [facility] Address: [address] [place] [address] Performed By: #### 5 7021-8 ####[facility]ERGENCYNCLIRas [id number] [place] [address] [place] Erythrocyte distribution width (RBC) [Ratio] 13.1 % Normal 11.5-15.0 [facility] Comment on above: Order Comment: Speci men Type: BLOOD SPECIMENOrdering Facility: [facility] Address: [address] [place] [address] Performed By: #### 5 7021-8 ####[facility] [id number] [place] [address] [place] Hematocrit (Bld) [Volume fraction] 33.0 % Low 36.0-46.0 [facility] Comment on above: Order Comment: Speci men Type: BLOOD SPECIMENOrdering Facility: [facility] Address: [address] [place] [address] Performed By: #### 5 7021-8 ####[facility] [id number] [place] [address] [place] Hemoglobin (Bld) [Mass/Vol] 11.3 g/dL Low 11.5-15.5 [facility] Comment on above: Order Comment: Speci men Type: BLOOD SPECIMENOrdering Facility: [facility] Address: [address] [place] [address] Performed By: #### 5 7021-8 ####[facility] MILLTOWNCLIA [id number] [place] [address] [place] Immature granulocytes (Bld) [#/Vol] 0.04 10*3/uL Normal <0.10 [facility] Comment on above: Order Comment: Speci men Type: BLOOD SPECIMENOrdering Facility: [facility] Address: [address] [place] [address] Performed By: #### 5 7021-8 ####[facility] [id number] [place] [address] [place] Immature granulocytes/100 WBC (Bld) 0.3 % Normal [facility] Comment on above: Order Comment: Speci men Type: BLOOD SPECIMENOrdering Facility: [facility] Address: [address] [place] [address] Performed By: #### 5 7021-8 ####[facility] [id number] [place] [address] [place] Lymphocytes (Bld) [#/Vol] 1.44 10*3/uL Normal 1.00-4.00 [facility] Comment on above: Order Comment: Speci men Type: BLOOD SPECIMENOrdering Facility: [facility] Address: [address] [place] [address] Performed By: #### 5 7021-8 ####[facility] [id number] [place] [address] [place] Lymphocytes/100 WBC (Bld) 11.9 % Normal [facility] Comment on above: Order Comment: Speci men Type: BLOOD SPECIMENOrdering Facility: [facility] Address: [address] [place] [address] Performed By: #### 5 7021-8 ####[facility]ENCYNCLIA [id number] [place] [address] [place] MCH (RBC) [Entitic mass] 29.0 pg Normal 26.0-34.0 [facility] Comment on above: Order Comment: Speci men Type: BLOOD SPECIMENOrdering Facility: [facility] Address: [address] [place] [address] Performed By: #### 5 7021-8 ####[facility] [id number] [place] [address] [place] MCHC (RBC) [Mass/Vol] 34.2 g/dL Normal 30.5-36.0 [facility] Comment on above: Order Comment: Speci men Type: BLOOD SPECIMENOrdering Facility: [facility] Address: [address] [place] [address] Performed By: #### 5 7021-8 ####[facility] [id number] [place] [address] [place] MCV (RBC) [Entitic vol] 84.8 fL Normal 80.0-100.0 [facility] Comment on above: Order Comment: Speci men Type: BLOOD SPECIMENOrdering Facility: [facility] Address: [address] [place] [address] Performed By: #### 5 7021-8 ####[facility] EMERGENCYNCLI [id number] [place] [address] [place] Monocytes (Bld) [#/Vol] 0.91 10*3/uL High <0.87 [facility] Comment on above: Order Comment: Speci men Type: BLOOD SPECIMENOrdering Facility: [facility] Address: [address] [place] [address] Performed By: #### 5 7021-8 ####[facility]ENCYNCLIA [id number] [place] [address] [place] Monocytes/100 WBC (Bld) 7.5 % Normal [facility] Comment on above: Order Comment: Speci men Type: BLOOD SPECIMENOrdering Facility: [facility] Address: [address] [place] [address] Performed By: #### 5 7021-8 ####[facility] ELIZABETHMARGARITALIA [id number] [place] [address] [place] Neutrophils (Bld) [#/Vol] 9.61 10*3/uL High 1.45-7.50 [facility] Comment on above: Order Comment: Speci men Type: BLOOD SPECIMENOrdering Facility: [facility] Address: [address] [place] [address] Performed By: #### 5 7021-8 ####[facility] EMERGENCYKELLYLIA [id number] [place] [address] [place] Neutrophils/100 WBC (Bld) 79.8 % Normal [facility] Comment on above: Order Comment: Speci men Type: BLOOD SPECIMENOrdering Facility: [facility] Address: [address] [place] [address] Performed By: #### 5 7021-8 ####[facility] [id number] [place] [address] [place] Nucleated RBC (Bld) [#/Vol] 10*3/uL Normal <0.01 [facility] Comment on above: Order Comment: Speci men Type: BLOOD SPECIMENOrdering Facility: [facility] Address: [address] [place] [address] Performed By: #### 5 7021-8 ####[facility]ENCYNCLIA [id number] [place] [address] [place] Nucleated RBC/100 WBC (Bld) [Ratio] 0.0 /100 WBC Normal [facility] Comment on above: Order Comment: Speci men Type: BLOOD SPECIMENOrdering Facility: [facility] Address: [address] [place] [address] Performed By: #### 5 7021-8 ####[facility]ENCYNCLIA [id number] [place] [address] [place] Platelet mean volume (Bld) [Entitic vol] 9.2 fL Normal 9.0-12.7 [facility] Comment on above: Order Comment: Speci men Type: BLOOD SPECIMENOrdering Facility: [facility] Address: [address] [place] [address] Performed By: #### 5 7021-8 ####[facility]ENCYNCLIA [id number] [place] [address] [place] Platelets (Bld) [#/Vol] 270 10*3/uL Normal 150-400 [facility] Comment on above: Order Comment: Speci men Type: BLOOD SPECIMENOrdering Facility: [facility] Address: [address] [place] [address] Performed By: #### 5 7021-8 ####[facility] [id number] [place] [address] [place] RBC (Bld) [#/Vol] 3.89 10*6/uL Low 3.90-5.20 [facility] Comment on above: Order Comment: Speci men Type: BLOOD SPECIMENOrdering Facility: [facility] Address: [address] [place] [address] Performed By: #### 5 7021-8 ####[facility] [id number] [place] [address] [place] WBC (Bld) [#/Vol] 12.06 10*3/uL High 3.70-11.00 [facility] Comment on above: Order Comment: Speci men Type: BLOOD SPECIMENOrdering Facility: [facility] Address: [address] [place] [address] Performed By: #### 5 7021-8 ####[facility] [id number] [place] [id number] [facility] CNOVon 12-07-2024 CNOV Office Visit (UCWSTR ) ----- ANAHY ESCALANTE ([id number]) 1990 F Date Time Provider Department 12/07/24 7:15 AM [facility] During your visit today, we recorded the following information about you: Temperature Pulse Respiration Blood pressure 98.2 degrees 100/minute 18/minute 120/68 Weight 94.7 kg Pauline Norwood APRN.[facility] 12/07/2024 7:47 AM Signed [facility] [...] Judgment normal. {1. 28 weeks gestation of ([facility]) (Z3A.28) - Currently 28 weeks gestation, second . - Receiving care. - Provided a list of medications safe during , including options for cold, cough, and congestion relief such as warm salt water gargles and saline (more content not included)... Normal [facility] GESTATIONAL GLUCOSE SCREEN, 1-HOUR, 50 GRAM, NON-FASTINGon 12-07-2024 Glucose [Mass/Vol] 137 mg/dL High 74-134 [facility] Comment on above: Order Comment: Specgeetha whittaker Type: BLOOD SPECIMENOrdering Facility: [facility] Address: [address] [place] [address] Result Comment: [facility] Congress of Obstetricians and Gynecologists (Harry/Nohemi) guidelines state a gestational diabetes mellitus positive screen is made, in women not previously diagnosed with overt diabetes, when the 1 hr plasma glucose level is equal to or above 140 mg/dL. The [facility] Manager Application Development and [facility] [place] recommends a 135 mg/dL cutoff. Performed By: #### G LTGST ####[facility] [id number] [place] [address] [place] Reagin and Treponema pallidu m IgG and IgM [Interp]on 12-07-2024 T. pallidum IgG+IgM IA Ql (S) Non-Reactive Normal Nonreactive [facility] Comment on above: Order Comment: Carla whittaker Type: BLOOD SPECIMENOrdering Facility: [facility] Address: [address] [place] [address] Performed By: #### 7 3752-8 ####[facility] LABCLIA [id number] [place] [address] [place] Reagin+T pallidum IgG+IgM Se rPl-Impon 12-07-2024 Reagin and Treponema pallidum IgG and IgM [Interp] Cannot exclude recent Treponemal infection if specimen collected within 7-10 days after appearance of suspect lesions or 2-3 weeks after an exposure. Clinical correlation is required. Normal [facility] Comment on above: Order Comment: Speci men Type: BLOOD SPECIMENOrdering Facility: [facility] Address: [address] [place] [address] Performed By: #### 7 3752-8 ####[facility] LABCLIA [id number] [place] [address] [place] TYPE + SCREEN PRENATALon ABO Invalid result Normal [facility] Comment on above: Order Comment: Speci men Type: BLOOD SPECIMENOrdering Facility: [facility] Address: [address] [place] [address] Performed By: #### T SPN, ABORH ####[facility] BLOOD BANKCLIA [id number] [place] [address] [place] Rh Nom (Bld) Invalid result Normal [facility] Comment on above: Order Comment: Speci men Type: BLOOD SPECIMENOrdering Facility: [facility] Address: [address] [place] [address] Performed By: #### T SPN, ABORH ####CC MAIN BLOOD BANKCLIA [id number] [place] [address] [place] TYPE AND SCREEN EXPIRATION 12/10/2024 23:59 Normal [facility] Comment on above: Order Comment: Speci men Type: BLOOD SPECIMENOrdering Facility: [facility] Address: [address] [place] [address] Performed By: #### T SPN, ABORH ####CC MAIN BLOOD BANKCLIA [id number] [place] [id number] [place] CNPJordana 11-03-2024 CNPN Telephone (OBGYWM) ----- ESCALANTEANAHY Mcginnis ([id number]) 1990 F Date Time Provider Department 11/03/24 PRABHA QUEVEDO OBNANCY During your visit today, we recorded the following information about you: Estephania Yee RN 11/03/2024 4:52 PM Addendum Records received from [facility]. Since it is 229 pages placed behind all chart prep folders for 11/16 NOB appt with CP (it is not specifically in CP's folder). Estephania Yee RN Allergies As of Date: 11/03/2024 Noted Allergy Reaction SULFA (SULFONAMIDE ANTIBIOTICS) 06/20/2008 Date Reviewed: 06/20/2008 Reviewed by: Michelle Coates LPN - Reviewed Reason for Visit: Received Outside Medical Records [3573] Prescriptions as of 11/03/2024 - COMPOUNDED PRESCRIPTION pristig 50 mg. take one daily - eszopiclone(LUNESTA 3 MG TAB) take one daily - lorazepam(ATIVAN 1 MG TAB) Take one(1) tablet every day Problem List As Of Date: 11/03/2024 (None) Encounter Status:Closed by ESTEPHANIA YEE on 11/03/24 Normal [facility] Laboratory - Chemistry and C hemistry - challengeOrdered By: Lizzeth Rodriguez on 10-20-2024 Glucose Ql (U) Negative [facility] Laboratory - UrinalysisOrder ed By: Lizzeth Rodriguez on 10-20-2024 Protein Ql (U) Negative [facility] Manager Application Development Office Visit Reporton 10-20-2024 Manager Application Development Office Visit Report [facility] [address], [address] [place] [address] OFFICE VISIT Date of Service: 10/20/24 MR#: [id number] Acct: [id number] Name: ANAHY ESCALANTE Rep #: [id number] : 1990 Provider: Dr. Lizzeth Jones DO Age/Sex: 33/F Location: [facility] Status: Signed with Addenda ADDENDUM by Dr. [...] 114/75 Intake Visit Reasons: 22 wk ob Skin Grader Required: No Is patient in pain?: No [...] tabs promethazine 25 mg rectal 25 mg CA Q6H PRN nausea and 10/20/24 Rx suppository vomiting #12 ea Last Menstrual Period: 05/19/24 Zika: Zika virus screening: Negative : No PFSH PFSH Medical History Rh negative status during Viral illness Chills Abdominal pain Encounter for preconception consultation Spotting affecting Headache Surgical History (Reviewed 0 (more content not included)... Normal [facility] Manager Application Development Office Visit Reporton 09-21-2024 Manager Application Development Office Visit Report [facility] Women[facility] [address], [address] [place] [address] OFFICE VISIT Date of Service: 09/21/24 MR#: [id number] Acct: [id number] Name: ANAHY ESCALANTE Rep #: [id number] : 1990 Provider: SPEEDY harrington Age/Sex: 33/F Location: [facility] Status: Signed Intake Vital Signs 07/28/24 08:53 08/24/24 15:45 09/21/24 13:30 Height 5 ft 8 in 5 ft 8 in 5 ft 8 in Weight: 206 lb 4 oz BMI 31.4 BP 124/80 H Intake Visit Reasons: 18 wk ob Chief Complaint: 18 Week OB Skin Grader Required: No Is patient in pain?: No [...] tabs promethazine 25 mg rectal 25 mg CA Q6H PRN nausea and 09/21/24 Rx suppository vomiting #12 ea Last Menstrual Period: 05/19/24 Zika: Zika virus screening: Negative : No PFSH PFSH Medical History Rh negative status during Viral illness Chills Abdominal pain Encounter for preconception consultation Spotting affecting Headache Surgical History Status post vaginal delivery History of tonsillectomy [place] teeth removed History of placement of ear tubes Family History Grandmother Breast cancer Father Graves disease Other Heart disease Social History adopted: No household members: spouse and children number of children: 1 current occupational status: employed 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 Date Name GA/Weeks Outcome Route Bth Weight Infant Gen Labor Lgth Anesthesia Del Brettataby Provider FOB 09/25/23 Víctor 38 live - full term vacuum 7#10 Male epidural [facility] [place] Delivery Date: 09/25/23 Last Updated by: Estrellita Chávez Vaccum delivery 2nd degree tear HPI 18 wk ob Details: ANAHY ESCALANTE is a 33 year old who presents for routine OB visit. OB Visit RICHARD Calculator Estimated Delivery Date Method Current WG Current Estimate 02/23/25 LMP (Certain) 17w 6d [...] -???-???-???-???-???-???- ??? (more content not included)... Normal [facility] Manager Application Development Office Visit Reporton 08-24-2024 Manager Application Development Office Visit Report [facility] [address], [address] [place] [address] OFFICE VISIT Date of Service: 08/24/24 MR#: [id number] Acct: [id number] Name: ANAHY ESCALANTE Rep #: [id number] : 1990 Provider: Dr. Ivette moser MD Age/Sex: 33/F Location: [facility] Status: Signed Intake Vital Signs 12/08/23 11:57 07/28/24 08:53 08/24/24 15:44 08/24/24 15:45 Height 5 ft 8 in 5 ft 8 in 5 ft 8 in 5 ft 8 in Weight: 208 lb 6 oz BMI 31.6 BP 130/80 H Intake Visit Reasons: 14wk OB Skin Grader Required: No Is patient in pain?: No [...] Status post vaginal delivery History of tonsillectomy [place] teeth removed History of placement of ear tubes Family History Grandmother Breast cancer Father Graves disease Other Heart disease Social History adopted: No household members: spouse and children number of children: 1 current occupational status: employed 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 Normal [facility] Chlamydia/GC TRISTIAN aptimaon CHLAMY,NUC ACID Negative Normal Negative [facility] Comment on above: Performed By: #### L 7000.1800, M100.2200 #### [facility] [address] [place], [address] GC BY NUC ACID Negative Normal Negative [facility] Comment on above: Result Comment: Perf ormed at: =G - [facility] [address] [place] [id number] Clinical Sciences Professor: Ning Humphreys MD, Phone: [phone] Performed By: #### L 7000.1800, M100.2200 #### [facility] [address] [place], [address] Urine Cultureon 07-29-2024 URC Culture exhibits no growth. Normal [facility] Comment on above: Performed By: #### L 7000.1800, M100.2200 #### [facility] [address] [place], [address] ABORh Blood Type, Patienton 07-28-2024 ABO and Rh group Nom (Bld) Blood group A Rh(D) negative Normal [facility] Comment on above: Order Comment: PN Performed By: #### L 3890.6100, L509.8000, L3890.6300, L509.4005, L501.9985, BTS, BtABORH, L100.0100, L3890.6005, [id number] #### [facility] [address] [place], [address] CBC W/Diff, Automatedon 07-13 Absolute Lymph 1.93 X10 3/uL Normal 0.83-4.51 [facility] Comment on above: Performed By: #### L 3890.6100, L509.8000, L3890.6300, L509.4005, L501.9985, BTS, BtABORH, L100.0100, L3890.6005, [id number] #### [facility] [address] [place], [address] Absolute Neut 5.1 X10 3/uL Normal 2.0-7.7 [facility] Comment on above: Performed By: #### L 3890.6100, L509.8000, L3890.6300, L509.4005, L501.9985, BTS, BtABORH, L100.0100, L3890.6005, [id number] #### [facility] [address] [place], [address] Basophils/100 WBC (Bld) 0.4 % Normal 0-1 [facility] Comment on above: Performed By: #### L 3890.6100, L509.8000, L3890.6300, L509.4005, L501.9985, BTS, BtABORH, L100.0100, L3890.6005, [id number] #### [facility] [address] [place], [address] Eosinophils/100 WBC (Bld) 0.8 % Normal 0-5 [facility] Comment on above: Performed By: #### L 3890.6100, L509.8000, L3890.6300, L509.4005, L501.9985, BTS, BtABORH, L100.0100, L3890.6005, [id number] #### [facility] [address] [place], [address] Erythrocyte distribution width (RBC) [Ratio] 12.5 % Normal 11.6-14.6 [facility] Comment on above: Performed By: #### L 3890.6100, L509.8000, L3890.6300, L509.4005, L501.9985, BTS, BtABORH, L100.0100, L3890.6005, [id number] #### [facility] [address] [place], [address] Hematocrit (Bld) [Volume fraction] 39.6 % Normal 37-47 [facility] Comment on above: Performed By: #### L 3890.6100, L509.8000, L3890.6300, L509.4005, L501.9985, BTS, BtABORH, L100.0100, L3890.6005, [id number] #### [facility] [address] [place], [address] Hemoglobin (Bld) [Mass/Vol] 13.4 g/dL Normal 12.0-15.0 [facility] Comment on above: Performed By: #### L 3890.6100, L509.8000, L3890.6300, L509.4005, L501.9985, BTS, BtABORH, L100.0100, L3890.6005, [id number] #### [facility] [address] [place], [address] IG% 0.300 Normal 0.0-0.9 [facility] Comment on above: Result Comment: IG% - Immature Granulocytes (promyelocytes, myelocytes and metamyelocytes) > 1% indicates that a LEFT SHIFT is Present. Performed By: #### L 3890.6100, L509.8000, L3890.6300, L509.4005, L501.9985, BTS, BtABORH, L100.0100, L3890.6005, [id number] #### [facility] [facility] [address] [place], [address] Lymphocytes/100 WBC (Bld) 25.5 % Normal 19-41 [facility] Comment on above: Performed By: #### L 3890.6100, L509.8000, L3890.6300, L509.4005, L501.9985, BTS, BtABORH, L100.0100, L3890.6005, [id number] #### [facility] [address] [place], [address] MCH (RBC) [Entitic mass] 28.0 pg Normal 27.0-32.0 [facility] Comment on above: Performed By: #### L 3890.6100, L509.8000, L3890.6300, L509.4005, L501.9985, BTS, BtABORH, L100.0100, L3890.6005, [id number] #### [facility] [address] [place], [address] MCHC (RBC) [Mass/Vol] 33.8 g/dL Normal 32-36 [facility] Comment on above: Performed By: #### L 3890.6100, L509.8000, L3890.6300, L509.4005, L501.9985, BTS, BtABORH, L100.0100, L3890.6005, [id number] #### [facility] [address] [place], [address] MCV (RBC) [Entitic vol] 82.8 fL Normal 81-99 [facility] Comment on above: Performed By: #### L 3890.6100, L509.8000, L3890.6300, L509.4005, L501.9985, BTS, BtABORH, L100.0100, L3890.6005, [id number] #### [facility] [address] [place], [address] Monocytes/100 WBC (Bld) 5.2 % Normal 0-10 [facility] Comment on above: Performed By: #### L 3890.6100, L509.8000, L3890.6300, L509.4005, L501.9985, BTS, BtABORH, L100.0100, L3890.6005, [id number] #### [facility] [address] [place], [address] Neutrophils/100 WBC (Bld) 67.8 % Normal 47-70 [facility] Comment on above: Performed By: #### L 3890.6100, L509.8000, L3890.6300, L509.4005, L501.9985, BTS, BtABORH, L100.0100, L3890.6005, [id number] #### [facility] [address] [place], [address] Nucleated RBC (Bld) [#/Vol] 0 10*3/uL Normal 0-5 [facility] Comment on above: Performed By: #### L 3890.6100, L509.8000, L3890.6300, L509.4005, L501.9985, BTS, BtABORH, L100.0100, L3890.6005, [id number] #### [facility] [address] [place], [address] Platelet mean volume (Bld) [Entitic vol] 10.0 fL Normal 6.2-12.0 [facility] Comment on above: Performed By: #### L 3890.6100, L509.8000, L3890.6300, L509.4005, L501.9985, BTS, BtABORH, L100.0100, L3890.6005, [id number] #### [facility] [address] [place], [address] Platelets (Bld) [#/Vol] 321 10*3/uL Normal 150-450 [facility] Comment on above: Performed By: #### L 3890.6100, L509.8000, L3890.6300, L509.4005, L501.9985, BTS, BtABORH, L100.0100, L3890.6005, [id number] #### [facility] [address] [place], [address] RBC (Bld) [#/Vol] 4.78 10*6/uL Normal 4.2-5.4 [facility] Comment on above: Performed By: #### L 3890.6100, L509.8000, L3890.6300, L509.4005, L501.9985, BTS, BtABORH, L100.0100, L3890.6005, [id number] #### [facility] [address] [place], [address] RDW SD 38.0 fl Normal 35.1-43.9 [facility] Comment on above: Performed By: #### L 3890.6100, L509.8000, L3890.6300, L509.4005, L501.9985, BTS, BtABORH, L100.0100, L3890.6005, [id number] #### [facility] [address] [place], [address] WBC (Bld) [#/Vol] 7.6 10*3/uL Normal 4.4-11.0 [facility] Comment on above: Performed By: #### L 3890.6100, L509.8000, L3890.6300, L509.4005, L501.9985, BTS, BtABORH, L100.0100, L3890.6005, [id number] #### [facility] [address] [place], [place], [id number] HIV - WCHon 07-28-2024 HIV Non-Reactive Normal Nonreactive [facility] Comment on above: Order Comment: Reaso n for Exam: Performed By: #### L 3890.6100, L509.8000, L3890.6300, L509.4005, L501.9985, BTS, BtABORH, L100.0100, L3890.6005, [id number] ####[facility] [address] [place], [place], [id number] Hemoglobin A1con 07-28-2024 HbA1c (Bld) [Mass fraction] 5.2 % Normal 3.8-5.6 [facility] Comment on above: Result Comment: Norm al < 5.7 % Prediabetic 5.7 - 6.4 % Diabetic >or= 6.5 % Please note range changes. Performed By: #### L 3890.6100, L509.8000, L3890.6300, L509.4005, L501.9985, BTS, BtABORH, L100.0100, L3890.6005, [id number] ####[facility] [address] [place], [place], [id number] Hepatitis B Surface Antigeno n 07-28-2024 HEP B Surf Ag Non-Reactive Normal Nonreactive [facility] Comment on above: Order Comment: Reaso n for Exam: Performed By: #### L 3890.6100, L509.8000, L3890.6300, L509.4005, L501.9985, BTS, BtABORH, L100.0100, L3890.6005, [id number] ####[facility] [address] [place], [place], [id number] Hepatitis C Antibodyon 07-28 Hepatitis C AB Non-Reactive Normal Nonreactive [facility] Comment on above: Order Comment: Reaso n for Exam: Result Comment: Non Reactive: < 0.8 Equivocal: >/= 0.8 to < 1.0 Reactive: >/= 1.0 The [facility] requires that a reactive/equivocal HCV antibody result be sent out for confirmation. HCV Quant by PCR testing. Performed By: #### L 3890.6100, L509.8000, L3890.6300, L509.4005, L501.9985, BTS, BtABORH, L100.0100, L3890.6005, [id number] ####[facility] [address] [place], [address] L509.8000on 07-28-2024 Syphilis Abs Non-Reactive Normal [facility] Comment on above: Order Comment: Reaso n for Exam: Performed By: #### L 3890.6100, L509.8000, L3890.6300, L509.4005, L501.9985, BTS, BtABORH, L100.0100, L3890.6005, [id number] ####[facility] [address] [facility] [address] [place], [place], [id number] Manager Application Development Office Visit Reporton 07-28-2024 Manager Application Development Office Visit Report [facility]'[address], [address] [place] [address] OFFICE VISIT Date of Service: 07/28/24 MR#: [id number] Acct: [id number] Name: ANAHY ESCAALNTE Rep #: [id number] : 1990 Provider: SUZANNE Tamayo ams Age/Sex: 33/F Location: [facility] Status: Signed Intake Vital Signs 12/08/23 11:57 07/28/24 08:38 07/28/24 08:53 Height 5 ft 8 in 5 ft 8 in 5 ft 8 in Weight: 209 lb BMI 31.7 BP 137/82 H Intake Visit Reasons: NOB LMP 05/19 Skin Grader Required: No Is patient in pain?: No [...] Status post vaginal delivery History of tonsillectomy [place] teeth removed History of placement of ear tubes Family History Grandmother Breast cancer Father Graves disease Other Heart disease Social History adopted: No household members: spouse and children number of children: 1 current occupational status: employed 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 Date Name GA/Weeks Outcome Route Bth Weight Gen Labor Lgth Anesthesia Del Locatn Provider FOB 09/25/23 Víctor 38 live - full term vacuum 7#10 Male epidural [facility] [place] Delivery Date: 09/25/23 Last Updated by: Estrellita Chávez Vaccsoy delivery 2nd degree tear HPI NOB LMP [...] 180 -???-??? (more content not included)... Normal [facility] Rubella IgGon 07-28-2024 Rubella IgG Reactive Normal Nonreactive [facility] Comment on above: Order Comment: Reaso n for Exam: Result Comment: Anti body Results Interpretation of Immune Status Non Reactive Presumed Non-Immune Equivocal Equivocal Reactive Presumed Immune Performed By: #### L 3890.6100, L509.8000, L3890.6300, L509.4005, L501.9985, BTS, BtABORH, L100.0100, L3890.6005, [id number] ####[facility] [address] [place], [place], [id number] Type AND Screenon 07-28-2024 Ab SCREEN GEL TNP Normal [facility] Comment on above: Performed By: #### L 3890.6100, L509.8000, L3890.6300, L509.4005, L501.9985, BTS, BtABORH, L100.0100, L3890.6005, [id number] #### [facility] [address] [place], [address] ABO and Rh group Nom (Bld) TN Normal [facility] Comment on above: Performed By: #### L 3890.6100, L509.8000, L3890.6300, L509.4005, L501.9985, BTS, BtABORH, L100.0100, L3890.6005, [id number] #### [facility] [address] [place], [address] Transvaginal w/Preg USon Transvaginal w/Preg US [facility] [address] [place] [address] Transvaginal w/Preg US MR#: [id number] Acct: [id number] Name: ANAHY ESCALANTE Rep #: [id number] : 1990 F 33 From: Monique badillo MD PCP: SPEEDY Taylor Status: [facility] CLI Study: Transvaginal w/Preg US Date of Exam: 07/08/24 Exam# [id number] Ordering Dr: Ivette Cornell [id number] HISTORY: viability, spotting in early . LMP [...] 6 days. YOLK SAC: 3 mm. POLE: Norlina rump length 5 mm corresponding to 6 weeks 3 days. ESTIMATED DELIVERY DATE: 02/26/2025. HEART MOTION: 116 bpm. US/Transvaginal w/Preg US IMPRESSION: Intrauterine with an estimated gestational age of 6 weeks 3 days and heart motion demonstrated. Small left ovarian corpus luteal cyst. Electronically Signed: Monique Montez MD at 15:02 EST , CC: SPEEDY Strange; Dr. Ivette Cornell MD Senior Policy Advisor: Signed Normal [facility] Absolute lymphocyte countOrd ered By: Ivette Cornell on 10-02-2023 Lymphocytes Auto (Unsp spec) [#/Vol] 2.84 10*3/uL 0.83-4.51 [facility] Automated lymphocyte count a s percentage of total leukocytesOrdered By: Ivette Cornell on 10-02-2023 Lymphocytes/100 WBC Auto (Unsp spec) 30.2 % 19-41 [facility] Basophil percentageOrdered B y: Ivette Cornell on 10-02-2023 Basophils/100 WBC (Bld) 0.7 % 0-1 [facility] Eosinophils/100 WBC (Bld) 1.3 % 0-5 [facility] Hemoglobin (Bld) [Mass/Vol] 10.5 g/dL 12.0-15.0 [facility] Monocytes/100 WBC (Bld) 8.6 % 0-10 [facility] Neutrophils (Bld) [#/Vol] 5.5 10*3/uL 2.0-7.7 [facility] Neutrophils/100 WBC (Bld) 58.1 % 47-70 [facility] WBC (Bld) [#/Vol] 9.4 10*3/uL 4.4-11.0 [facility] Determination of erythrocyte mean corpuscular volume (MCV)Ordered By: Ivette Cornell on 10-02-2023 MCV (RBC) [Entitic vol] 87.4 fL 81-99 [facility] Erythrocyte distribution wid th ratioOrdered By: Ivette Cornell on 10-02-2023 Erythrocyte distribution width (RBC) [Ratio] 13.3 % 11.6-14.6 [facility] Erythrocyte distribution wid th standard deviationOrdered By: Ivette Cornell on 10-02-2023 Erythrocyte distribution width (RBC) [Entitic vol] 42.3 fL 35.1-43.9 [facility] Hematocrit Auto (Bld) [Volum e fraction]Ordered By: Ivette Cornell on 10-02-2023 Hematocrit (Bld) [Volume fraction] 32.7 % 37-47 [facility] Immature granulocytes/100 WB C Auto (Bld)Ordered By: Ivette Cornell on 10-02-2023 Immature granulocytes/100 WBC (Bld) 1.100 % 0.0-0.9 [facility] Comment on above: IG% - Immature Granu locytes (promyelocytes, myelocytes and metamyelocytes) > 1% indicates that a LEFT SHIFT is Present. Laboratory - Hematology and Cell countsOrdered By: Ivette Cornell on 10-02-2023 MCH (RBC) [Entitic mass] 28.1 pg 27.0-32.0 [facility] MCHC (RBC) [Mass/Vol] 32.1 g/dL 32-36 [facility] Nucleated RBC/100 WBC (Bld) [Ratio] 0 % 0-5 [facility] Platelet mean volume (Bld) [Entitic vol] 8.9 fL 6.2-12.0 [facility] Platelets (Bld) [#/Vol] 548 10*3/uL 150-450 [facility] RBC Auto (Bld) [#/Vol]Ordere d By: Ivette Cornell on 10-02-2023 RBC (Bld) [#/Vol] 3.74 10*6/uL 4.2-5.4 [facility] Serum or plasma thyroid stim ulating hormone (TSH) measurement (units/volume)Ordered By: Ivette Cornell on 10-02-2023 TSH Qn 1.14 uIU/mL 0.358-3.74 [facility] Thin prep Papanicolaou smear with manual screeningOrdered By: Ivette Cornell on 10-02-2023 Thin prep Papanicolaou smear with manual screening 1.14 ng/dL 0.76-1.46 [facility] Absolute lymphocyte countOrd ered By: Lizzeth Rodriguez on 09-25-2023 Lymphocytes Auto (Unsp spec) [#/Vol] 1.20 10*3/uL 0.83-4.51 [facility] Automated lymphocyte count a s percentage of total leukocytesOrdered By: Lizzeth Rodriguez on 09-25-2023 Lymphocytes/100 WBC Auto (Unsp spec) 6.1 % 19-41 [facility] Basophil percentageOrdered B y: Lizzeth Rodriguez on 09-25-2023 Basophils/100 WBC (Bld) 0.3 % 0-1 [facility] Eosinophils/100 WBC (Bld) 0.1 % 0-5 [facility] Hemoglobin (Bld) [Mass/Vol] 11.1 g/dL 12.0-15.0 [facility] Monocytes/100 WBC (Bld) 5.2 % 0-10 [facility] Neutrophils (Bld) [#/Vol] 17.3 10*3/uL 2.0-7.7 [facility] Neutrophils/100 WBC (Bld) 87.7 % 47-70 [facility] WBC (Bld) [#/Vol] 19.7 10*3/uL 4.4-11.0 [facility] Determination of erythrocyte mean corpuscular volume (MCV)Ordered By: Lizzeth Rodriguez on 09-25-2023 MCV (RBC) [Entitic vol] 85.9 fL 81-99 [facility] Erythrocyte distribution wid th ratioOrdered By: Lizzeth Rodriguez on 09-25-2023 Erythrocyte distribution width (RBC) [Ratio] 13.2 % 11.6-14.6 [facility] Erythrocyte distribution wid th standard deviationOrdered By: Lizzeth Rodriguez on 09-25-2023 Erythrocyte distribution width (RBC) [Entitic vol] 40.5 fL 35.1-43.9 [facility] Hematocrit Auto (Bld) [Volum e fraction]Ordered By: Lizzeth Rodriguez on 09-25-2023 Hematocrit (Bld) [Volume fraction] 33.0 % 37-47 [facility] Immature granulocytes/100 WB C Auto (Bld)Ordered By: Lizzeth Rodriguez on 09-25-2023 Immature granulocytes/100 WBC (Bld) 0.600 % 0.0-0.9 [facility] Comment on above: IG% - Immature Granu locytes (promyelocytes, myelocytes and metamyelocytes) > 1% indicates that a LEFT SHIFT is Present. Laboratory - Hematology and Cell countsOrdered By: Lizzeth Rodriguez on 09-25-2023 MCH (RBC) [Entitic mass] 28.9 pg 27.0-32.0 [facility] MCHC (RBC) [Mass/Vol] 33.6 g/dL 32-36 [facility] Nucleated RBC/100 WBC (Bld) [Ratio] 0 % 0-5 [facility] Platelet mean volume (Bld) [Entitic vol] 10.1 fL 6.2-12.0 [facility] Platelets (Bld) [#/Vol] 199 10*3/uL 150-450 [facility] RBC Auto (Bld) [#/Vol]Ordere d By: Lizzeth Rodriguez on 09-25-2023 RBC (Bld) [#/Vol] 3.84 10*6/uL 4.2-5.4 [facility] Serum Treponema species anti body detectionOrdered By: Ivette Cornell on 09-24-2023 Treponema sp Ab Ql (S) Non-Reactive [facility] Absolute lymphocyte countOrd ered By: Lizzeth Rodriguez on 09-14-2023 Lymphocytes Auto (Unsp spec) [#/Vol] 2.09 10*3/uL 0.83-4.51 [facility] Automated lymphocyte count a s percentage of total leukocytesOrdered By: Lizzeth Rodriguez on 09-14-2023 Lymphocytes/100 WBC Auto (Unsp spec) 23.0 % 19-41 [facility] Basophil percentageOrdered B y: Lizzeth Rodriguez on 09-14-2023 Basophils/100 WBC (Bld) 0.3 % 0-1 [facility] Bilirubin [Mass/Vol] 0.50 mg/dL 0.20-1.00 [facility] Comment on above: For patients on eltr ombopag therapy, use of Dimension [place] TBIL is not recommended. Chloride [Moles/Vol] 108 mmol/L 98-107 [facility] Eosinophils/100 WBC (Bld) 1.2 % 0-5 [facility] Glucose [Mass/Vol] 114 mg/dL 74-106 [facility] Comment on above: Fasting Glucose resu lt from 100 to 125 mg/dL suggests IMPAIRED HOMEOSTASIS per A.D.A. criteria. Hemoglobin (Bld) [Mass/Vol] 12.0 g/dL 12.0-15.0 [facility] Monocytes/100 WBC (Bld) 5.9 % 0-10 [facility] Neutrophils (Bld) [#/Vol] 6.3 10*3/uL 2.0-7.7 [facility] Neutrophils/100 WBC (Bld) 69.2 % 47-70 [facility] Potassium [Moles/Vol] 3.7 mmol/L 3.5-5.1 [facility] Protein [Mass/Vol] 6.4 g/dL 6.4-8.2 [facility] Sodium [Moles/Vol] 138 mmol/L 136-145 [facility] WBC (Bld) [#/Vol] 9.1 10*3/uL 4.4-11.0 [facility] Determination of erythrocyte mean corpuscular volume (MCV)Ordered By: Lizzeth Rodriguez on 09-14-2023 MCV (RBC) [Entitic vol] 85.7 fL 81-99 [facility] Erythrocyte distribution wid th ratioOrdered By: Lizzeth Rodriguez on 09-14-2023 Erythrocyte distribution width (RBC) [Ratio] 13.1 % 11.6-14.6 [facility] Erythrocyte distribution wid th standard deviationOrdered By: Lizzeth Rodriguez on 09-14-2023 Erythrocyte distribution width (RBC) [Entitic vol] 40.1 fL 35.1-43.9 [facility] Hematocrit Auto (Bld) [Volum e fraction]Ordered By: Lizzeth Rodriguez on 09-14-2023 Hematocrit (Bld) [Volume fraction] 36.6 % 37-47 [facility] Immature granulocytes/100 WB C Auto (Bld)Ordered By: Lizzeth Rodriguez on 09-14-2023 Immature granulocytes/100 WBC (Bld) 0.400 % 0.0-0.9 [facility] Comment on above: IG% - Immature Granu locytes (promyelocytes, myelocytes and metamyelocytes) > 1% indicates that a LEFT SHIFT is Present. Laboratory - Chemistry and C hemistry - challengeOrdered By: Lizzeth Rodriguez on 09-14-2023 Albumin/Globulin [Mass ratio] 0.8 {ratio} 0.9-2.4 [facility] ALP [Catalytic activity/Vol] 88 U/L 45-117 [facility] ALT [Catalytic activity/Vol] 10 U/L 13-56 [facility] CO2 [Moles/Vol] 22.0 mmol/L 21.0-32.0 [facility] Globulin (S) [Mass/Vol] 3.5 g/dL 2.2-4.2 [facility] Urea nitrogen/Creatinine [Mass ratio] 8.1 mg/mg 10-20 [facility] - Chemistry and C hemistry - challengeon 09-14-2023 Glucose Ql (U) Negative [facility] - Hematology and Cell countsOrdered By: Lizzeth Rodriguez on 09-14-2023 MCH (RBC) [Entitic mass] 28.1 pg 27.0-32.0 [facility] MCHC (RBC) [Mass/Vol] 32.8 g/dL 32-36 [facility] Nucleated RBC/100 WBC (Bld) [Ratio] 0 % 0-5 [facility] Platelet mean volume (Bld) [Entitic vol] 10.1 fL 6.2-12.0 [facility] Platelets (Bld) [#/Vol] 240 10*3/uL 150-450 [facility] - Urinalysison Protein Ql (U) Negative [facility] No Panel InformationOrdered By: Lizzeth Rodriguez on 09-14-2023 Vaginal Amniotic Fluid Detection Negative Negative [facility] Comment on above: Amniotic fluid not p resent indicates No Rupture of FetalMembranes at time of specimen collection. Estimated GFR (MDRD) Amer 142 mL/min >60 [facility] Comment on above: GFR Calc Estimated GFR (MDRD) Non-Af Amer 117 mL/min >60 [facility] Comment on above: Non- GFR Calc RBC Auto (Bld) [#/Vol]Ordere d By: Lizzeth Rodriguez on 09-14-2023 RBC (Bld) [#/Vol] 4.27 10*6/uL 4.2-5.4 [facility] Serum or plasma calcium rachael urement (mass/volume)Ordered By: Lizzeth Rodriguez on 09-14-2023 Calcium [Mass/Vol] 8.9 mg/dL 8.5-10.1 [facility] Serum or plasma creatinine m easurement (mass/volume)Ordered By: Lizzeth Rodriguez on 09-14-2023 Creatinine [Mass/Vol] 0.62 mg/dL 0.55-1.02 [facility] Comment on above: The validity of the calculated GFR & GFRAA in patients over 70 years has not been determined. Clinical correlation is essential. Serum or plasma urea nitroge n measurement (mass/volume)Ordered By: Lizzeth Rodriguez on 09-14-2023 Urea nitrogen [Mass/Vol] 5 mg/dL 7-18 [facility] Serum or plasma uric acid me asurement (mass/volume)Ordered By: Lizzeth Rodriguez on 09-14-2023 Urate [Mass/Vol] 3.8 mg/dL 2.6-6.0 [facility] Comment on above: The drugs N-Acetylcy steine and Metamizole may falsely depress this assay. Thin prep Papanicolaou smear with manual screeningOrdered By: Lizzeth Rodriguez on 09-14-2023 Thin prep Papanicolaou smear with manual screening < 6.0 mg/dL 0.0-11.8 [facility] Thin prep Papanicolaou smear with manual screening 2.9 g/dL 3.2-5.0 [facility] Thin prep Papanicolaou smear with manual screening 14 U/L 15-37 [facility] Thin prep Papanicolaou smear with manual screening 8 5-15 [facility] Urine creatinine measurement (mass/volume)Ordered By: Lizzeth Rodriguez on 09-14-2023 Creatinine (U) [Mass/Vol] 18.50 mg/dL NO RANGE EST. [facility] Urine protein/creatinine mas s ratioOrdered By: Lizzeth Rodriguez on 09-14-2023 Protein/Creatinine (U) [Mass ratio] TNP [facility] Comment on above: Test not performed Laboratory - Chemistry and C hemistry - challengeon 09-08-2023 Glucose Ql (U) Negative [facility] - Urinalysison Protein Ql (U) Negative [facility] No Panel InformationOrdered By: Jesus Marinelli on 09-08-2023 Group B Streptococcus Culture Group B Beta Streptococcus is not isolated. [facility] Group B Streptococcus Culture Group B Beta Streptococcus is not isolated. [facility] Specimen Comment (Misc) Not Reportable [facility] Thin prep Papanicolaou smear with manual screeningOrdered By: Jesus Marinelli on 09-08-2023 Thin prep Papanicolaou smear with manual screening Negative Negative [facility] Laboratory - Chemistry and C hemistry - challengeon 08-31-2023 Glucose Ql (U) Negative [facility] - Urinalysison Protein Ql (U) Negative [facility] Absolute lymphocyte countOrd ered By: Batsheva Krishna on 08-24-2023 Lymphocytes Auto (Unsp spec) [#/Vol] 2.67 10*3/uL 0.83-4.51 [facility] Automated lymphocyte count a s percentage of total leukocytesOrdered By: Batsheva Krishna on 08-24-2023 Lymphocytes/100 WBC Auto (Unsp spec) 27.5 % 19-41 [facility] Basophil percentageOrdered B y: Batsheva Krishna on 08-24-2023 Basophils/100 WBC (Bld) 0.4 % 0-1 [facility] Bilirubin [Mass/Vol] 0.30 mg/dL 0.20-1.00 [facility] Comment on above: For patients on eltr ombopag therapy, use of Dimension [place] TBIL is not recommended. Chloride [Moles/Vol] 108 mmol/L 98-107 [facility] Eosinophils/100 WBC (Bld) 2.0 % 0-5 [facility] Glucose [Mass/Vol] 85 mg/dL 74-106 [facility] Hemoglobin (Bld) [Mass/Vol] 12.4 g/dL 12.0-15.0 [facility] Monocytes/100 WBC (Bld) 5.7 % 0-10 [facility] Neutrophils (Bld) [#/Vol] 6.2 10*3/uL 2.0-7.7 [facility] Neutrophils/100 WBC (Bld) 64.0 % 47-70 [facility] Potassium [Moles/Vol] 3.8 mmol/L 3.5-5.1 [facility] Protein [Mass/Vol] 6.3 g/dL 6.4-8.2 [facility] Sodium [Moles/Vol] 138 mmol/L 136-145 [facility] WBC (Bld) [#/Vol] 9.7 10*3/uL 4.4-11.0 [facility] Determination of erythrocyte mean corpuscular volume (MCV)Ordered By: Batsheva Krishna on 08-24-2023 MCV (RBC) [Entitic vol] 87.3 fL 81-99 [facility] Erythrocyte distribution wid th ratioOrdered By: [facility] Erythrocyte distribution width (RBC) [Ratio] 13.1 % 11.6-14.6 [facility] Erythrocyte distribution wid th standard deviationOrdered By: [facility] Tomi on 08-24-2023 Erythrocyte distribution width (RBC) [Entitic vol] 41.2 fL 35.1-43.9 [facility] Hematocrit Auto (Bld) [Volum e fraction]Ordered By: Batsheva Krishna on 08-24-2023 Hematocrit (Bld) [Volume fraction] 36.5 % 37-47 [facility] Immature granulocytes/100 WB C Auto (Bld)Ordered By: Batshevachaz Krishan on 08-24-2023 Immature granulocytes/100 WBC (Bld) 0.400 % 0.0-0.9 [facility] Comment on above: IG% - Immature Granu locytes (promyelocytes, myelocytes and metamyelocytes) > 1% indicates that a LEFT SHIFT is Present. Laboratory - Chemistry and C hemistry - challengeon 08-24-2023 Glucose Ql (U) Negative [facility] Laboratory - Chemistry and C hemistry - challengeOrdered By: Batsheva Krishna on 08-24-2023 Albumin/Globulin [Mass ratio] 0.8 {ratio} 0.9-2.4 [facility] ALP [Catalytic activity/Vol] 67 U/L 45-117 [facility] ALT [Catalytic activity/Vol] 14 U/L 13-56 [facility] CO2 [Moles/Vol] 24.0 mmol/L 21.0-32.0 [facility] Globulin (S) [Mass/Vol] 3.5 g/dL 2.2-4.2 [facility] Urea nitrogen/Creatinine [Mass ratio] 9.0 mg/mg 10-20 [facility] Laboratory - Hematology and Cell countsOrdered By: Batsheva Krishna on 08-24-2023 MCH (RBC) [Entitic mass] 29.7 pg 27.0-32.0 [facility] MCHC (RBC) [Mass/Vol] 34.0 g/dL 32-36 [facility] Nucleated RBC/100 WBC (Bld) [Ratio] 0 % 0-5 [facility] Platelet mean volume (Bld) [Entitic vol] 9.8 fL 6.2-12.0 [facility] Platelets (Bld) [#/Vol] 228 10*3/uL 150-450 [facility] Laboratory - Urinalysison Protein Ql (U) Negative [facility] No Panel InformationOrdered By: Batsheva Krishna on 08-24-2023 Estimated GFR (MDRD) Amer 160 mL/min >60 [facility] Comment on above: GFR Calc Estimated GFR (MDRD) Non-Af Amer 132 mL/min >60 [facility] Comment on above: Non- GFR Calc RBC Auto (Bld) [#/Vol]Ordere d By: Batsheva Krishna on 08-24-2023 RBC (Bld) [#/Vol] 4.18 10*6/uL 4.2-5.[address] [facility] [place] Serum or plasma calcium rachael urement (mass/volume)Ordered By: Batsheva Krishna on 08-24-2023 Calcium [Mass/Vol] 8.9 mg/dL 8.5-10.1 [facility] Serum or plasma creatinine m easurement (mass/volume)Ordered By: Batsheva Krishna on 08-24-2023 Creatinine [Mass/Vol] 0.56 mg/dL 0.55-1.02 [facility] Comment on above: The validity of the calculated GFR & GFRAA in patients over 70 years has not been determined. Clinical correlation is essential. Serum or plasma urea nitroge n measurement (mass/volume)Ordered By: Batsheva Krishna on 08-24-2023 Urea nitrogen [Mass/Vol] 5 mg/dL 7-18 [facility] Thin prep Papanicolaou smear with manual screeningOrdered By: Batsheva Tomi on 08-24-2023 Thin prep Papanicolaou smear with manual screening 2.8 g/dL 3.2-5.0 [facility] Thin prep Papanicolaou smear with manual screening 8 U/L 15-37 [facility] Thin prep Papanicolaou smear with manual screening 6 5-15 [facility] Laboratory - Chemistry and C hemistry - challengeon 08-17-2023 Glucose Ql (U) Negative [facility] Laboratory - Urinalysison Protein Ql (U) Negative [facility] Absolute lymphocyte countOrd ered By: Lizzeth Rodriguez on 08-05-2023 Lymphocytes Auto (Unsp spec) [#/Vol] 1.84 10*3/uL 0.83-4.51 [facility] Automated lymphocyte count a s percentage of total leukocytesOrdered By: Lizzeth Rodriguez on 08-05-2023 Lymphocytes/100 WBC Auto (Unsp spec) 20.6 % 19-41 [facility] Basophil percentageOrdered B y: Lizzeth Rodriguez on 08-05-2023 Basophils/100 WBC (Bld) 0.3 % 0-1 [facility] Bilirubin [Mass/Vol] 0.30 mg/dL 0.20-1.00 [facility] Comment on above: For patients on eltr ombopag therapy, use of Dimension [place] TBIL is not recommended. Chloride [Moles/Vol] 109 mmol/L 98-107 [facility] Eosinophils/100 WBC (Bld) 0.9 % 0-5 [facility] Glucose [Mass/Vol] 80 mg/dL 74-106 [facility] Hemoglobin (Bld) [Mass/Vol] 12.2 g/dL 12.0-15.0 [facility] Monocytes/100 WBC (Bld) 5.8 % 0-10 [facility] Neutrophils (Bld) [#/Vol] 6.4 10*3/uL 2.0-7.7 [facility] Neutrophils/100 WBC (Bld) 72.0 % 47-70 [facility] Potassium [Moles/Vol] 3.7 mmol/L 3.5-5.1 [facility] Protein [Mass/Vol] 6.6 g/dL 6.4-8.2 [facility] Sodium [Moles/Vol] 137 mmol/L 136-145 [facility] WBC (Bld) [#/Vol] 8.9 10*3/uL 4.4-11.0 [facility] Determination of erythrocyte mean corpuscular volume (MCV)Ordered By: Lizzeth Rodriguez on 08-05-2023 MCV (RBC) [Entitic vol] 85.3 fL 81-99 [facility] Erythrocyte distribution wid th ratioOrdered By: Lizzeth Rodriguez on 08-05-2023 Erythrocyte distribution width (RBC) [Ratio] 12.9 % 11.6-14.6 [facility] Erythrocyte distribution wid th standard deviationOrdered By: Lizzeth Rodriguez on 08-05-2023 Erythrocyte distribution width (RBC) [Entitic vol] 39.6 fL 35.1-43.9 [facility] Hematocrit Auto (Bld) [Volum e fraction]Ordered By: Lizzeth Rodriguez on 08-05-2023 Hematocrit (Bld) [Volume fraction] 36.0 % 37-47 [facility] Immature granulocytes/100 WB C Auto (Bld)Ordered By: Lizzeth Rodriguez on 08-05-2023 Immature granulocytes/100 WBC (Bld) 0.400 % 0.0-0.9 [facility] Comment on above: IG% - Immature Granu locytes (promyelocytes, myelocytes and metamyelocytes) > 1% indicates that a LEFT SHIFT is Present. Laboratory - Chemistry and C hemistry - challengeOrdered By: Lizzeth Rodriguez on 01-24-2024 Albumin/Globulin [Mass ratio] 0.8 {ratio} 0.9-2.4 [facility] ALP [Catalytic activity/Vol] 59 U/L 45-117 [facility] ALT [Catalytic activity/Vol] 12 U/L 13-56 [facility] CO2 [Moles/Vol] 21.0 mmol/L 21.0-32.0 [facility] Cobalamin (Vitamin B12) [Mass/Vol] 342 pg/mL 211-911 [facility] Globulin (S) [Mass/Vol] 3.6 g/dL 2.2-4.2 [facility] Urea nitrogen/Creatinine [Mass ratio] 15.1 mg/mg 10-20 [facility] Laboratory - Hematology and Cell countsOrdered By: Lizzeth Rodriguez on 08-05-2023 MCH (RBC) [Entitic mass] 28.9 pg 27.0-32.0 [facility] MCHC (RBC) [Mass/Vol] 33.9 g/dL 32-36 [facility] Nucleated RBC/100 WBC (Bld) [Ratio] 0 % 0-5 [facility] Platelets (Bld) [#/Vol] 283 10*3/uL 150-450 [facility] No Panel InformationOrdered By: Lizzeth Rodriguez on 08-05-2023 Estimated GFR (MDRD) Amer 235 mL/min >60 [facility] Comment on above: GFR Calc Estimated GFR (MDRD) Non-Af Amer 194 mL/min >60 [facility] Comment on above: Non- GFR Calc Platelet mean volume Willian-Ec ker (Bld) [Entitic vol]Ordered By: Lizzeth Rodriguez on 08-05-2023 Platelet mean volume (Bld) [Entitic vol] 9.9 fL 6.2-12.0 [facility] RBC Auto (Bld) [#/Vol]Ordere d By: Lizzeth Rodriguez on 08-05-2023 RBC (Bld) [#/Vol] 4.22 10*6/uL 4.2-5.4 [facility] Serum or plasma calcitriol m easurement (mass/volume)Ordered By: Lizzeth Rodriguez on 08-05-2023 1,25-dihydroxyvitamin D3 [Mass/Vol] 119.0 pg/mL 24.8-81.5 [facility] Comment on above: Performed at: [facility] [address] [id number] Director: Carrington Granados MD, Phone: [phone] Serum or plasma calcium rachael urement (mass/volume)Ordered By: Lizzeth Rodriguez on 08-05-2023 Calcium [Mass/Vol] 8.8 mg/dL 8.5-10.1 [facility] Serum or plasma creatinine m easurement (mass/volume)Ordered By: Lizzeth Rodrgiuez on 08-05-2023 Creatinine [Mass/Vol] 0.40 mg/dL 0.55-1.02 [facility] Comment on above: The validity of the calculated GFR & GFRAA in patients over 70 years has not been determined. Clinical correlation is essential. Serum or plasma thiamine gerald surement (mass/volume)Ordered By: Lizzeth Rodriguez on 08-05-2023 Thiamine [Mass/Vol] 89.2 nmol/L 66.5-200.0 [facility] Comment on above: Performed at: [facility] [id number] [place], [place] [id number] Director: Carrington Granados MD, Phone: [phone] Serum or plasma thyroid stim ulating hormone (TSH) measurement (units/volume)Ordered By: Lizzeth Rodriguez on 08-05-2023 TSH Qn 0.83 uIU/mL 0.358-3.74 [facility] Serum or plasma urea nitroge n measurement (mass/volume)Ordered By: Lizzeth Rodriguez on 08-05-2023 Urea nitrogen [Mass/Vol] 6 mg/dL 7-18 [facility] Thin prep Papanicolaou smear with manual screeningOrdered By: Lizzeth Rodriguez on 08-05-2023 Thin prep Papanicolaou smear with manual screening 3.0 g/dL 3.2-5.0 [facility] Thin prep Papanicolaou smear with manual screening 11 U/L 15-37 [facility] Thin prep Papanicolaou smear with manual screening 7 5-15 [facility] Laboratory - Chemistry and C hemistry - challengeon 08-03-2023 Glucose Ql (U) Negative [facility] Laboratory - Urinalysison Protein Ql (U) Negative [facility] Laboratory - Chemistry and C hemistry - challengeon 07-20-2023 Glucose Ql (U) Negative [facility] Laboratory - Urinalysison Protein Ql (U) Negative [facility] Laboratory - Chemistry and C hemistry - challengeon 07-03-2023 Glucose Ql (U) Negative [facility] Laboratory - Urinalysison Protein Ql (U) Negative [facility] Absolute lymphocyte countOrd ered By: Ivette Cornell on 07-02-2023 Lymphocytes Auto (Unsp spec) [#/Vol] 2.23 10*3/uL 0.83-4.51 [facility] Basophil percentageOrdered B y: Ivette Cornell on 07-02-2023 Basophils/100 WBC (Bld) 0.3 % 0-1 [facility] Eosinophils/100 WBC (Bld) 1.0 % 0-5 [facility] Neutrophils (Bld) [#/Vol] 6.8 10*3/uL 2.0-7.7 [facility] Neutrophils/100 WBC (Bld) 70.4 % 47-70 [facility] WBC (Bld) [#/Vol] 9.6 10*3/uL 4.4-11.0 [facility] Blood erythrocytes count (nu mber/volume)Ordered By: Ivette Cornell on 07-02-2023 RBC (Bld) [#/Vol] 4.17 10*6/uL 4.2-5.4 [facility] Blood hemoglobin measurement (mass/volume)Ordered By: Ivette Cornell on 07-02-2023 Hemoglobin (Bld) [Mass/Vol] 12.0 g/dL 12.0-15.0 [facility] Blood lymphocytes/100 leukoc ytesOrdered By: Ivette Cornell on 07-02-2023 Lymphocytes/100 WBC (Bld) 23.2 % 19-41 [facility] Blood monocytes/100 leukocyt esOrdered By: Ivette Cornell on 07-02-2023 Monocytes/100 WBC (Bld) 4.7 % 0-10 [facility] Blood platelet mean volumeOr dered By: Ivette Cornell on 07-02-2023 Platelet mean volume (Bld) [Entitic vol] 9.2 fL 6.2-12.0 [facility] Determination of erythrocyte mean corpuscular volume (MCV)Ordered By: Ivette Cornell on 07-02-2023 MCV (RBC) [Entitic vol] 85.6 fL 81-99 [facility] Gestational diabetes screen 1-hour screen with 50g oral glucose loadOrdered By: Ivette Cornell on 07-02-2023 Glucose 1 Hr post 50 g glucose PO [Mass/Vol] 120 mg/dL 70-140 [facility] HIV 1 and HIV-2 antibody ass ay with HIV-1 p24 antigen detectionOrdered By: Ivette Cornell on 07-02-2023 HIV 1+2 Ab+HIV1 p24 Ag IA Ql Non-Reactive Nonreactive [facility] Hematocrit Auto (Bld) [Volum e fraction]Ordered By: Ivette Cornell on 07-02-2023 Hematocrit (Bld) [Volume fraction] 35.7 % 37-47 [facility] Laboratory - Hematology and Cell countsOrdered By: Ivette Cornell on 07-02-2023 Erythrocyte distribution width (RBC) [Entitic vol] 39.3 fL 35.1-43.9 [facility] Erythrocyte distribution width (RBC) [Ratio] 12.6 % 11.6-14.6 [facility] Immature granulocytes/100 WBC (Bld) 0.400 % 0.0-0.9 [facility] Comment on above: IG% - Immature Granu locytes (promyelocytes, myelocytes and metamyelocytes) > 1% indicates that a LEFT SHIFT is Present. MCH (RBC) [Entitic mass] 28.8 pg 27.0-32.0 [facility] Nucleated RBC/100 WBC (Bld) [Ratio] 0 % 0-5 [facility] MCHC Auto (RBC) [Mass/Vol]Or dered By: Ivette Cornell on 07-02-2023 MCHC (RBC) [Mass/Vol] 33.6 g/dL 32-36 [facility] Platelets bldOrdered By: Markie Cornell on 07-02-2023 Platelets (Bld) [#/Vol] 324 10*3/uL 150-450 [facility] Serum Treponema species anti body detectionOrdered By: Ivette Cornell on 07-02-2023 Treponema sp Ab Ql (S) Non-Reactive [facility] Laboratory - Chemistry and C hemistry - challengeon 06-03-2023 Glucose Ql (U) Negative [facility] Laboratory - Urinalysison Protein Ql (U) Negative [facility] Laboratory - Chemistry and C hemistry - challengeon 05-05-2023 Glucose Ql (U) Negative [facility] Laboratory - Urinalysison Protein Ql (U) Negative [facility] Laboratory - Chemistry and C hemistry - challengeon 04-03-2023 Glucose Ql (U) Negative [facility] Laboratory - Urinalysison Protein Ql (U) Negative [facility] Gestational diabetes screen 1-hour screen with 50g oral glucose loadOrdered By: Ivette Cornell on 03-30-2023 Glucose 1 Hr post 50 g glucose PO [Mass/Vol] 132 mg/dL 70-140 [facility] Chlamydia trachomatis rRNA d etection by probe and target amplification methodOrdered By: Ivette Cornell on 03-05-2023 C. trachomatis rRNA TRISTIAN+probe Ql (Unsp spec) Negative Negative [facility] Culture, urineOrdered By: Rob Cornell on 03-05-2023 Bacteria identified Cx Nom (U) Culture exhibits no growth. [facility] Laboratory - Microbiology an d Antimicrobial susceptibilityOrdered By: Ivette Cornell on 03-05-2023 N. gonorrhoeae DNA TRISTIAN+probe Ql (Unsp spec) Negative Negative [facility] Comment on above: Performed at: =[address] [id number] Director: Ning Humphreys MD, Phone: [phone] Serum or plasma choriogonado tropin detectionOrdered By: Ivette Cornell on 02-26-2023 HCG ( test) [place]l [address] mIU/mL <4 [facility] Comment on above: hCG levels with Gest ational AgeGestational Age hCG mIU/mL (IU/L)0.2 - 1 week 5 - 501-2 weeks 50 - 5002-3 weeks 100 - 06793-2 weeks 500 - 260570-5 weeks 1000 - 038711-4 weeks 29422 - 100,0006-8 weeks 03630 - 200,0002-3 months 38101 - 100,000 Absolute lymphocyte countOrd ered By: Ivette Cornell on 02-24-2023 Lymphocytes Auto (Unsp spec) [#/Vol] 2.51 10*3/uL 0.83-4.51 [facility] Basophil percentageOrdered B y: Ivette Cornell on 02-24-2023 Basophils/100 WBC (Bld) 0.5 % 0-1 [facility] Eosinophils/100 WBC (Bld) 1.0 % 0-5 [facility] Neutrophils (Bld) [#/Vol] 7.6 10*3/uL 2.0-7.7 [facility] Neutrophils/100 WBC (Bld) 69.2 % 47-70 [facility] WBC (Bld) [#/Vol] 11.0 10*3/uL 4.4-11.0 [facility] Blood erythrocytes count (nu mber/volume)Ordered By: Ivette Cornell on 02-24-2023 RBC (Bld) [#/Vol] 4.66 10*6/uL 4.2-5.4 [facility] Blood hemoglobin measurement (mass/volume)Ordered By: Ivette Cornell on 02-24-2023 Hemoglobin (Bld) [Mass/Vol] 13.2 g/dL 12.0-15.0 [facility] Blood lymphocytes/100 leukoc ytesOrdered By: Ivette Cornell on 02-24-2023 Lymphocytes/100 WBC (Bld) 22.9 % 19-41 [facility] Blood monocytes/100 leukocyt esOrdered By: Ivette Cornell on 02-24-2023 Monocytes/100 WBC (Bld) 6.1 % 0-10 [facility] Blood platelet mean volumeOr dered By: Ivette Cornell on 02-24-2023 Platelet mean volume (Bld) [Entitic vol] 9.5 fL 6.2-12.0 [facility] Determination of erythrocyte mean corpuscular volume (MCV)Ordered By: Ivette Cornell on 02-24-2023 MCV (RBC) [Entitic vol] 84.8 fL 81-99 [facility] HIV 1 and HIV-2 antibody ass ay with HIV-1 p24 antigen detectionOrdered By: Ivette Cornell on 02-24-2023 HIV 1+2 Ab+HIV1 p24 Ag IA Ql Non-Reactive Nonreactive [facility] Hematocrit Auto (Bld) [Volum e fraction]Ordered By: Ivette Cornell on 02-24-2023 Hematocrit (Bld) [Volume fraction] 39.5 % 37-47 [facility] Laboratory - Hematology and Cell countsOrdered By: Ivette Cornell on 02-24-2023 Erythrocyte distribution width (RBC) [Entitic vol] 38.9 fL 35.1-43.9 [facility] Erythrocyte distribution width (RBC) [Ratio] 12.7 % 11.6-14.6 [facility] Immature granulocytes/100 WBC (Bld) 0.300 % 0.0-0.9 [facility] Comment on above: IG% - Immature Granu locytes (promyelocytes, myelocytes and metamyelocytes) > 1% indicates that a LEFT SHIFT is Present. MCH (RBC) [Entitic mass] 28.3 pg 27.0-32.0 [facility] Nucleated RBC/100 WBC (Bld) [Ratio] 0 % 0-5 [facility] MCHC Auto (RBC) [Mass/Vol]Or dered By: Ivette Cornell on 02-24-2023 MCHC (RBC) [Mass/Vol] 33.4 g/dL 32-36 [facility] No Panel InformationOrdered By: Ivette Cornell on 02-24-2023 Hepatitis B Surface Antigen Non-Reactive Nonreactive [facility] Hepatitis C Antibody Non-Reactive Nonreactive [facility] Comment on above: Non Reactive: < 0.8 Equivocal: >/= 0.8 to < 1.0 Reactive: >/= 1.0The CDC recommends that a reactive/equivocal HCV antibody result be followed up by the HCV Nucleic Acid Amplificationtest (692903) Rubella IgG Antibody Reactive Nonreactive [facility] Comment on above: Antibody Results Int erpretation of Immune Status Non Reactive Presumed Non-Immune Equivocal Equivocal Reactive Presumed Immune Platelets bldOrdered By: Markie Cornell on 02-24-2023 Platelets (Bld) [#/Vol] 323 10*3/uL 150-450 [facility] Serum Treponema species anti body detectionOrdered By: Ivette Cornell on 02-24-2023 Treponema sp Ab Ql (S) Non-Reactive [facility] Serum or plasma choriogonado tropin detectionOrdered By: Ivette Cornell on 02-24-2023 HCG ( test) [place]l [address]881 mIU/mL <4 [facility] Comment on above: hCG levels with Gest ational AgeGestational Age hCG mIU/mL (IU/L)0.2 - 1 week 5 - 501-2 weeks 50 - 5002-3 weeks 100 - 02863-6 weeks 500 - 263763-3 weeks 1000 - 343547-6 weeks 86119 - 100,0006-8 weeks 69496 - 200,0002-3 months 45098 - 100,000 Serum or plasma choriogonado tropin detectionOrdered By: Batsheva Krishna on 02-04-2023 HCG ( test) Ql 2393 mIU/mL <4 [facility] Comment on above: hCG levels with Gest ational AgeGestational Age hCG mIU/mL (IU/L)0.2 - 1 week 5 - 501-2 weeks 50 - 5002-3 weeks 100 - 54305-7 weeks 500 - 199506-9 weeks 1000 - 969793-5 weeks 58048 - 100,0006-8 weeks 28230 - 200,0002-3 months 14275 - 100,000 Serum or plasma choriogonado tropin detectionOrdered By: Batsheva Krishna on 02-02-2023 HCG ( test) Ql 1074 mIU/mL <4 [facility] Comment on above: hCG levels with Gest ational AgeGestational Age hCG mIU/mL (IU/L)0.2 - 1 week 5 - 501-2 weeks 50 - 5002-3 weeks 100 - 05281-5 weeks 500 - 562922-1 weeks 1000 - 917298-9 weeks 88524 - 100,0006-8 weeks 62764 - 200,0002-3 months 23128 - 100,000 Tobacco Screening.on 023 Tobacco use status HS b) No -[facility] Work Phone: Complete Blood Count + Diffe ashu 08-01-2022 Basophils/100 WBC (Bld) 0.5 % 0.0 - 2.0 [facility] Work Phone: Erythrocyte distribution width (RBC) [Ratio] 12.4 % See Below [facility] Work Phone: Comment on above: Reference Range: 11. 5 - 14.5 Hematocrit (Bld) [Volume fraction] 41.9 % See Below [facility] Work Phone: [phone] Comment on above: Reference Range: 36. 0 - 46.0 Hemoglobin (Bld) [Mass/Vol] 13.9 g/dL See Below [facility] Work Phone: [phone] Comment on above: Reference Range: 12. 0 - 16.0 Lymphocytes/100 WBC (Bld) 27.0 % See Below [facility] Work Phone: Comment on above: Reference Range: 13. 0 - 44.0 MCHC (RBC) [Mass/Vol] 33.2 g/dL See Below [facility] Work Phone: Comment on above: Reference Range: 32. 0 - 36.0 MCV (RBC) [Entitic vol] 84 fL 80 - 100 [facility] Work Phone: [phone] Monocytes/100 WBC (Bld) 7.1 % 2.0 - 10.0 [facility] Work Phone: [phone] Neutrophils/100 WBC (Bld) 64.0 % See Below [facility] Work Phone: [phone] Comment on above: Reference Range: 40. 0 - 80.0 Platelets (Bld) [#/Vol] 348 10*3/uL 150 - 450 [facility] Work Phone: RBC (Bld) [#/Vol] 4.98 {x10E12/L} See Below [facility] Work Phone: Comment on above: Reference Range: 4.0 0 - 5.20 WBC (Bld) [#/Vol] 8.6 10*3/uL 4.4 - 11.3 [facility] Work Phone: Complete Blood Count + Differential 0.04 {x10E9/L} See Below [facility] Work Phone: Comment on above: Reference Range: 0.0 0 - 0.10 Complete Blood Count + Differential 0.10 {x10E9/L} See Below [facility] Work Phone: Comment on above: Reference Range: 0.0 0 - 0.70 Complete Blood Count + Differential 0.61 {x10E9/L} See Below [facility] Work Phone: Comment on above: Reference Range: 0.1 0 - 1.00 Complete Blood Count + Differential 2.32 {x10E9/L} See Below [facility] Work Phone: Comment on above: Reference Range: 1.2 0 - 4.80 Complete Blood Count + Differential 5.50 {x10E9/L} See Below [facility] Work Phone: Comment on above: Reference Range: 1.2 0 - 7.70 Percent differential counts (%) should be interpreted in the context of the absolute cell counts (cells/L). Complete Blood Count + Differential 1.2 % 0.0 - 6.0 [facility] Work Phone: Complete Blood Count + Differential 0.2 % 0.0 - 0.9 [facility] Work Phone: Comment on above: Immature Granulocyte Count (IG) includes promyelocytes, myelocytes and metamyelocytes but does not include bands. Percent differential counts (%) should be interpreted in the context of the absolute cell counts (cells/L). Cult, Bloodon 08-01-2022 Bacteria identified Cx Nom (Bld) [facility] Work Phone: Bacteria identified Cx Nom (Bld) [facility] Work Phone: Hepatic Function Panelon Albumin BCP dye [Mass/Vol] 4.6 g/dL 3.4 - 5.0 [facility] Work Phone: ALP [Catalytic activity/Vol] 52 U/L 33 - 110 [facility] Work Phone: ALT With P-5'-P [Catalytic activity/Vol] 16 U/L 7 - 45 [facility] Work Phone: Comment on above: Patients treated wit h Sulfasalazine may generate falsely decreased results for ALT. AST With P-5'-P [Catalytic activity/Vol] 15 U/L 9 - 39 [facility] Work Phone: Bilirubin [Mass/Vol] 0.4 mg/dL 0.0 - 1.2 [facility] Work Phone: Bilirubin.direct [Mass/Vol] 0.0 mg/dL 0.0 - 0.3 [facility] Work Phone: Protein [Mass/Vol] 7.1 g/dL 6.4 - 8.2 [facility] Work Phone: INFLUENZA A/B, COVID 2019 PC R,SYMPTOMATICon 08-01-2022 INFLUENZA A/B, COVID 2019 PCR,SYMPTOMATIC Not detected See Below [facility] Work Phone: Comment on above: Reference Range: Not Detected.This test has received FDA Emergency Use Authorization (EUA) and has been verified by [facility]. This test is only authorized for the duration of time that circumstances exist to justify the authorization of the emergency use of in vitro diagnostic tests for the detection of SARS-CoV-2 virus and/or diagnosis of COVID-19 infection under section 564(b)(1) of the Act, 21 U.S.C. 360bbb-3(b)(1), unless the authorization is terminated or revoked sooner. [facility] is certified under CLIA-88 as qualified to perform high complexity testing. Testing is performed in the [facility] laboratory located at [address] [place] [address].SARS-CoV-2/Flu/RSV Multiplex Test: Fact sheet for providers: https://www.fda.gov/media/921370/downloadFact sheet for patients: https://www.fda.gov/media/343192/download Reference Range: Not Detected Respiratory virus testing [...] gap [Moles/Vol] 12 mmol/L 10 - 20 [facility] Work Phone: Calcium [Mass/Vol] 9.3 mg/dL 8.6 - 10.3 [facility] Work Phone: Chloride [Moles/Vol] 104 mmol/L 98 - 107 [facility] Work Phone: CO2 [Moles/Vol] 26 mmol/L 21 - 32 [facility] Work Phone: Creatinine [Mass/Vol] 0.67 mg/dL See Below [facility] Work Phone: Comment on above: Reference Range: 0.5 0 - 1.05 Glucose [Mass/Vol] 93 mg/dL 74 - 99 [facility] Work Phone: Potassium [Moles/Vol] 3.7 mmol/L 3.5 - 5.3 [facility] Work Phone: Sodium [Moles/Vol] 138 mmol/L 136 - 145 [facility] Work Phone: Urea nitrogen [Mass/Vol] 9 mg/dL 6 - 23 [facility] Work Phone: Laboratory - Coagulationon 0 08-01-2022 INR Coag (PPP) [Relative time] 1.0 {INR} 0.9 - 1.1 [facility] Work Phone: PT Coag (PPP) [Time] 11.8 s 9.8 - 13.4 [facility] Work Phone: Lipase, Serumon 08-01-2022 Lipase [Catalytic activity/Vol] 22 U/L 9 - 82 [facility] Work Phone: Comment on above: Venipuncture immedia tely after or during the administration of Metamizole may lead to falsely low results. Testing should be performed immediately prior to Metamizole dosing. M-qwptsb-p-benzoquinone imine (metabolite of Acetaminophen) will generate erroneously low results in samples for patients that have taken toxic doses of acetaminophen. No Panel Informationon 08-01 >90 >90 [facility] Work Phone: Comment on above: CALCULATIONS OF VANDANA MATED GFR ARE PERFORMED USING THE 2020 CKD-EPI STUDY REFIT EQUATION WITHOUT THE RACE VARIABLE FOR THE IDMS-TRACEABLE CREATININE METHODS.https://jasn.asnjournals.org/content//A SN.5523536703 Radiologyon 08-01-2022 XR Chest Single view Normal [facility] Work Phone: TROPONIN I, HIGH SENSITIVITY on 08-01-2022 Tropinin I.cardiac panel High sensitivity method <3 0 - 13 [facility] Work Phone: Comment on above: .Less [...] performed using a different testing methodology at [facility] than at other [facility]. Direct result comparisons should only be made within the same method. URINALYSIS WITH CULTURE IF I NDICATEDon 08-01-2022 Color (U) Straw See Below [facility] Work Phone: Comment on above: Reference Range: STR AW,YELLOW Glucose Ql (U) Negative NEGATIVE -[facility] Work Phone: Ketones Ql (U) Negative NEGATIVE -[facility] Work Phone: Leukocyte esterase Test strip Ql (U) Negative NEGATIVE [facility] Work Phone: pH (U) 6.0 [pH] 5.0 - 8.0 [facility] Work Phone: Protein (U) [Mass/Vol] Negative NEGATIVE -[facility] Work Phone: RBC (U) [#/Vol] Negative NEGATIVE -[facility] Work Phone: Specific gravity (U) [Rel density] 1.006 1 See Below [facility] Work Phone: Comment on above: Reference Range: 1.0 05 - 1.035 URINALYSIS WITH CULTURE IF INDICATED Negative NEGATIVE [facility] Work Phone: URINALYSIS WITH CULTURE IF INDICATED <2.0 0.0 - 1.9 -[facility] Work Phone: URINALYSIS WITH CULTURE IF INDICATED CLEAR CLEAR -[facility] Work Phone: Urine Teston 08-01 HCG ( test) Ql (U) Negative Negative -[facility] Work Phone: CBCon 01-20-2022 Erythrocyte distribution width (RBC) [Ratio] 13.2 % Normal 11.5 - 14.5 [facility] Comment on above: Performed By: #### C AMADOR #### [address] [address] Hematocrit (Bld) [Volume fraction] 42.1 % Normal 36.0 - 46.0 [facility] Comment on above: Performed By: #### C BC #### [address] [address] Hemoglobin (Bld) [Mass/Vol] 14.2 g/dL Normal 12.0 - 16.0 [facility] Comment on above: Performed By: #### C BC #### [address] [address] MCHC (RBC) [Mass/Vol] 33.8 g/dL Normal 32.0 - 36.0 [facility] Comment on above: Performed By: #### C BC #### [address] [address] MCV (RBC) [Entitic vol] 84 fL Normal 80 - 100 [facility] Comment on above: Performed By: #### C BC #### [address] [address] Platelets (Bld) [#/Vol] 315 10*3/uL Normal 150 - 450 [facility] Comment on above: Performed By: #### C BC #### [address] [address] RBC 5.01 x10E12/L Normal 4.00 - 5.20 [facility] Comment on above: Performed By: #### C BC #### [address] [address] WBC (Bld) [#/Vol] 7.0 10*3/uL Normal 4.4 - 11.3 [facility] Comment on above: Performed By: #### C BC #### [address] [address] Laboratory - Chemistry and C hemistry - challengeon 01-20-2022 TSH Qn 1.84 m[IU]/L See Below -[facility] Work Phone: Comment on above: Reference Range: 0.4 4 - 3.98 TSH testing is performed using different testing methodology at [facility] than at other [facility]. Direct result comparisons should only be made within the same method. Laboratory - Hematology and Cell countson 01-20-2022 Erythrocyte distribution width (RBC) [Ratio] 13.2 % See Below [facility] Work Phone: Comment on above: Reference Range: 11. 5 - 14.5 Hematocrit (Bld) [Volume fraction] 42.1 % See Below [facility] Work Phone: [phone] Comment on above: Reference Range: 36. 0 - 46.0 Hemoglobin (Bld) [Mass/Vol] 14.2 g/dL See Below [facility] Work Phone: [phone] Comment on above: Reference Range: 12. 0 - 16.0 MCHC (RBC) [Mass/Vol] 33.8 g/dL See Below [facility] Work Phone: [phone] Comment on above: Reference Range: 32. 0 - 36.0 MCV (RBC) [Entitic vol] 84 fL 80 - 100 [facility] Work Phone: [phone] Platelets (Bld) [#/Vol] 315 10*3/uL 150 - 450 [facility] Work Phone: [phone] RBC (Bld) [#/Vol] 5.01 {x10E12/L} See Below [facility] Work Phone: [phone] Comment on above: Reference Range: 4.0 0 - 5.20 WBC (Bld) [#/Vol] 7.0 10*3/uL 4.4 - 11.3 [facility] Work Phone: [phone] Office Visit ([facility]on 01-20-2022 Follow-up visit Diagnoses/Problems Fatigue, unspecified type (780.79) (R53.83) Poor appetite (783.0) (R63.0) Depression (311) (F32.A) Generalized anxiety disorder (300.02) (F41.1) Orders Fatigue, unspecified type Complete Blood Count; Status:Active; Requested for:[id number]; Follow-up visit in 1 year Outpatient Follow-up Status: Hold For - Scheduling Requested for: [id number] TSH WITH REFLEX TO FREE T4 IF ABNORMAL; Status:Active; Requested for:[id number]; Vitamin D 25-Hydroxy; Status:Active; Requested for:[id number]; Provider Impressions Fatigue: will check lab for [...] uses no contraception. she is sexually active. [facility]: 12/28/21. History: 0. Cervical cancer screening: cancer [...] loss. She sees psychiatry every 3 months, CONSULTING IT ARCHITECT annually. denies any SI or HI. No other health concerns 'Scores and Scales' FARRAH-7 [id number] 21 FARRAH-7 Total Score3 17 17 Feeling [...] of Pap test, as part of routine obstetrics gyn physician (more content not included)... Normal [facility] TSH WITH REFLEX TO FREE T4 I F ABNORMALon 01-20-2022 TSH Qn 1.84 m[IU]/L Normal 0.44 - 3.98 [facility] Comment on above: Result Comment: TSH testing is performed using different testing methodology at [facility] than at other [facility]. Direct result comparisons should only be made within the same method. Performed By: #### T HYDS #### [place] [address] Tobacco Screening.on 022 Tobacco use status CPHS b) No -[facility] Work Phone: VITAMIN D, 25-HYDROXYon 01-10 VITAMIN D, 25-HYDROXY 25 ng/mL Abnormal [facility] Comment on above: Result Comment: . DEFICIENCY: < 20 NG/ML INSUFFICIENCY: 20-29 NG/ML SUFFICIENCY: 30-100 NG/ML THIS ASSAY ACCURATELY QUANTIFIES THE SUM OF VITAMIN D3, 25-HYDROXY AND VIT D2,25-HYDROXY. Performed By: #### V TDOH #### [address] [address] Vitamin D 25-Hydroxyon 01-20 25-hydroxyvitamin D3 [Mass/Vol] 25 ng/mL Abnormal [facility] Work Phone: Comment on above: .DEFICIENCY: [...] R05.1: Acute cough. COMPARISON: 09/11/2018 ACCESSION NUMBER(S): [id number] ORDERING CLINICIAN: JOSE LEWIS FINDINGS: CARDIOMEDIASTINAL SILHOUETTE: Cardiomediastinal silhouette is normal in size and configuration. LUNGS: There are no focal areas of consolidation or pleural effusions noted. ABDOMEN: No remarkable upper abdominal findings. BONES: No acute osseous changes. IMPRESSION: 1. No evidence of acute cardiopulmonary process. Electronically signed by: XIANG HAINES MD [facility] Covid 19 Resultson 2 SARS-CoV-2 (COVID-19) RNA [...] You may also be contacted by the [facility] to see if any of your [...] or Naproxen (Aleve) can also be used. Qwox-hvf-qdoywsu cough and cold medicines can be used according to the instructions on the package. Some wuew-ltg-epalnpz medicines also contain acetaminophen. Make sure you [...] water are not available, use alcohol-based hand oracle forms developer. Avoid touching your eyes, nose, and mouth [...] 24 terrence (more content not included)... Normal [facility] INFLUENZA A/B, COVID 2018 PC R,SYMPTOMATICon 11-26-2021 INFLUENZA A, PCR Not detected Normal Not Detected [facility] Comment on above: Result Comment: Resp iratory virus testing is performed routinely by PCR for Influenza A/B and RSV. If Influenza and RSV PCR are negative, testing for parainfluenza 1,2,3 viruses and adenovirus is routinely performed for oncology inpatients and intensive care unit patients at [facility] and is available on request on other patients by calling Laboratory Client Services at [phone]. Not Detected results do not preclude Influenza A/B or RSV infections since the adequacy of sample collection or low viral burden may impact the clinical sensitivity of this test method. Performed By: #### C OINP #### [facility] [address] [place] [address] INFLUENZA B, PCR Not detected Normal Not Detected [facility] Comment on above: Result Comment: Resp iratory virus testing is performed routinely by PCR for Influenza A/B and RSV. If Influenza and RSV PCR are negative, testing for parainfluenza 1,2,3 viruses and adenovirus is routinely performed for oncology inpatients and intensive care unit patients at [facility] and is available on request on other patients by calling Laboratory Client Services at [phone] Not Detected results do not preclude Influenza [...] by the Microbiology Laboratory, Department of Pathology, [facility], [place], [place]. It has not been cleared or approved by the US Food and Drug Administration; however, FDA clearance or approval is not currently required for clinical use. This test should not be regarded as investigational or for research purposes. Performed By: #### C OINP #### [facility] [address] [place] [address] SARS-CoV-2 (COVID-19) RNA TRISTIAN+probe Ql (Unsp spec) Not detected Normal Not Detected [facility] Comment on above: Result Comment: . This [...] patient management decisions. Fact sheet for providers: https://www.fda.gov/media/353466/download Fact sheet for patients: https://www.fda.gov/media/891350/download This test has received FDA Emergency Use Authorization (EUA) and has been verified by [facility] ([facility]). This test is only authorized for the duration of time that circumstances exist to justify the authorization of the emergency use of in vitro diagnostic tests for the detection of SARS-CoV-2 virus and/or diagnosis of COVID-19 infection under section 564(b)(1) of the Act, 21 U.S.C. 360bbb-3(b)(1), unless the authorization is terminated or revoked sooner. [facility] is certified under CLIA-88 as qualified to perform high complexity testing. Testing is performed in the [facility] laboratories located at [address] [place] [address]. Performed By: #### C OINP #### [place] [address] Lab Specimen Source Nasal, Nasopharyngeal Normal [facility] Comment on above: Performed By: #### C OINP #### [place] [address] INFLUENZA A/B, COVID 2019 PCR,SYMPTOMATIC Not detected See Below -[facility] Work Phone: Comment on above: Reference Range: [...] make patient management decisions.Fact sheet for providers: https://www.fda.gov/media/889268/downloadFact sheet for patients: https://www.fda.gov/media/218417/downloadThis test has received FDA Emergency Use Authorization (EUA) and has been verified by [facility] ([facility]). This test is only authorized for the duration of time that circumstances exist to justify the authorization of the emergency use of in vitro diagnostic tests for the detection of SARS-CoV-2 virus and/or diagnosis of COVID-19 infection under section 564(b)(1) of the Act, 21 U.S.C. 360bbb-3(b)(1), unless the authorization is terminated or revoked sooner. [facility] is certified under CLIA-88 as qualified to perform high complexity testing. Testing is performed in the [facility] laboratories located at [address] [place] [address]. Reference Range: Not Detected Respiratory virus testing is performed routinely by PCR for Influenza A/B and RSV. If Influenza and RSV PCR are negative, testing for parainfluenza 1,2,3 viruses and adenovirus is routinely performed for oncology inpatients and intensive care unit patients at [facility] and is available on request on other patients by calling Laboratory Client Services at [phone] Not Detected results do not preclude Influenza [...] by the Microbiology Laboratory, Department of Pathology, [facility], [place], [place]. It has not been cleared or [...] inpatients and intensive care unit patients at [facility] and is available on request on other patients by calling Laboratory Client Services at [phone]. Not Detected results do not preclude Influenza [...] cough, Headache, Sore throat INFLUENZA A/B, COVID 2018 PCR,SYMPTOMATIC; Status:Active; Requested for:26Nov2021; Acute cough, Suspected [...] anyone with COVID 'Scores and Scales' FARRAH-7 [id number] 21 FARRAH-7 Total Score3 17 17 Feeling [...] placement 11/2017 History of Tonsillectomy with adenoidectomy 2005 History of Tympanoplasty Family History No pertinent family history Family history of Graves' disease (V18.19) (Z83.49) Social History Does not have living will Employed [employer] in [employer]. 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 Normal [facility] Radiologyon 11-26-2021 XR Chest 2 Views Please click on the link to view the study images Normal [facility] Work Phone: XR Chest 2 Views Normal [facility] Work Phone: Tobacco Screening.on 022 Tobacco use status CPHS b) No [facility] Work Phone: LMPon 06-17-2021 Last menstrual period start date IUD [facility] [address] Work Phone: OWNER - Procedure Visiton 1 08-18-2020 OWNER - Procedure Visit Diagnoses/Problems Encounter for removal of intrauterine contraceptive device (IUD) (V25.12) (Z30.432) Orders Encounter for removal of intrauterine contraceptive device (IUD) Follow-up PRN Outpatient Follow-up Status: Active Requested for: [id number] Unlinked Stop: Mirena (52 MG) 20 MCG/24HR Intrauterine Intrauterine Device Provider Impressions 1) encounter for IUD removal-IUD removed without complication noted above. Patient tolerated procedure well. Precautions for return. Chief Complaint PT IS HERE TODAY FOR THE REMOVAL OF THE IUD. PT STATES IS NOT INTERESTED IN ANY CONTROL. HAS NO CONCERNS. LMP: IUD History of Present Yqkezmh06-uija-ddy presents for IUD removal. Considering fertility in [...] Problems Does not have living will Employed [employer] in [place]. 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 This [...] patient management decisions. Fact sheet for providers: https://www.fda.gov/media/083979/download Fact sheet for patients: https://www.fda.gov/media/602593/download This test has received FDA Emergency Use Authorization (EUA) and has been verified by [facility] ([facility]). This test is only authorized for the duration of time that circumstances exist to justify the authorization of the emergency use of in vitro diagnostic tests for the detection of SARS-CoV-2 virus and/or diagnosis of COVID-19 infection under section 564(b)(1) of the Act, 21 U.S.C. 360bbb-3(b)(1), unless the authorization is terminated or revoked sooner. [facility] is certified under CLIA-88 as qualified to perform high complexity testing. Testing is performed in the [facility] laboratories located at [address] [place] [address]. Performed By: #### C OV19 #### [address] [place] [address] Covid 19 Resultson 1 SARS-CoV-2 (COVID-19) RNA TRISTIAN+probe Ql (Unsp spec) [...] You may also be contacted by the [facility] to see if any of your [...] or Naproxen (Aleve) can also be used. Xoxh-onq-ajpwkyp cough and cold medicines can be used according to the instructions on the package. Some tuws-gfp-drzsknw medicines also contain acetaminophen. Make sure you [...] water are not available, use alcohol-based hand oracle forms developer. Avoid touching your eyes, nose, and mouth [...] 24 terrence (more content not included)... Normal [facility] CORONAVIRUS 2019 BY PCRon DATE OF SYMPTOM ONSET [YYYYMMDD]? [id number] Normal [facility] Comment on above: Performed By: #### C OV19 #### [facility] [address] [place] [address] Lab Specimen Source Nasal, Nasopharyngeal Normal [facility] Comment on above: Performed By: #### C OV19 #### [facility] [address] [place] [address] Coronavirus 2019 RNA by PCR, Symptomaticon 05-24-2021 Date and time of symptom onset [id number] 1 -[facility] Work Phone: Coronavirus 2019 RNA by PCR, Symptomatic Not detected Normal See Below -[facility] Work Phone: Comment on above: SOURCE: Nasal, [...] make patient management decisions.Fact sheet for providers: https://www.fda.gov/media/266474/downloadFact sheet for patients: https://www.fda.gov/media/010214/downloadThis test has received FDA Emergency Use Authorization (EUA) and has been verified by [facility] ([facility]). This test is only authorized for the duration of time that circumstances exist to justify the authorization of the emergency use of in vitro diagnostic tests for the detection of SARS-CoV-2 virus and/or diagnosis of COVID-19 infection under section 564(b)(1) of the Act, 21 U.S.C. 360bbb-3(b)(1), unless the authorization is terminated or revoked sooner. [facility] is certified under CLIA-88 as qualified to perform high complexity testing. Testing is performed in the [facility] laboratories located at [address] [place] [address]. Office Visit ([facility])on 05-24-2021 Follow-up visit Diagnoses/Problems Suspected COVID-19 virus [...] Denies CP or SOB. She had the [employer] booster 05/14/2021. 'Scores and Scales' FARRAH-7 [id number] 21 FARRAH-7 Total Score3 17 17 Feeling [...] placement 11/2017 History of Tonsillectomy with adenoidectomy 2005 History of Tympanoplasty Family History No pertinent family history Family history of Graves' disease (V18.19) (Z83.49) Social History Does not have living will Employed [employer] in [place]. 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 [employer] (more content not included)... Normal [facility] OWNER - Office Visiton 04-12 OWNER - Office Visit Diagnoses/Problems Assessed Women's annual routine gynecological examination (V72.31) (Z01.419) Screening for cervical cancer (V76.2) (Z12.4) Screening for breast cancer (V76.10) (Z12.39) Orders PAP CONSULTING IT ARCHITECT, Cytology; Status:In Progress - Specimen/Data Collected,Retrospective Authorization; [...] CHECK OCCASIONALLY. LMP: IUD History of Present Mlrrzaq62-nzji-qzo G0 presents for annual exam. 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 Normal [facility] Tobacco Screening.on Fall risk assessment a) No falls within the last year [facility] Work Phone: Last menstrual period start date IUD [facility] Work Phone: Tobacco use status CPHS b) No [facility] Work Phone: Office Visit ([facility])on 02-15-2021 Follow-up visit Diagnoses/Problems Encounter for preventive health examination (V70.0) (Z00.00) Bruise (924.9) (T14.8XXA) Acute-stable A: Pt. noted a bullseye appearing bruise on her left thigh. She is concerned about Lyme disease as she was recently at a hindu outing where others found ticks. The area is a faded bruise that does not resemble Lyme disease. P: Follow-up as needed. Orders Health Maintenance Follow-up PRN Outpatient Follow-up Status: Active Requested for: [id number] Provider Impressions Educated on Lyme disease appearance. Follow-up PRN Chief Complaint Bruise/rash consistent with lymes disease. History of Present Illness 30 y.o. female presents for possible Lyme disease. She was at a hindu outing where several youths found a tick on their body. She denies seeing a tick on her person. She has a bruise on her left thigh that resembles a bullseye appearance described in Lyme disease so she is concerned. She denies feeling ill. 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 Vitals Vital Signs Recorded: [id number] 03:26PM Heart Rate72 Zvaetanu586 Gkorfzvrc12 Height5 ft 7 in Gcwbml102 lb BMI Pgolawgnde15.89 kg/m2 BSA Calculated2.06 Tobacco Useb) No Physical Exam Constitutional: Alert and in no acute distress. Well developed, well nourished. Head and Face: Head and face: Normal. Eyes: Normal external exam. Ears, Nose, Mouth, and Throat: External inspection of ears and nose: Normal. Cardiovascular: Heart rate and rhythm were normal, normal S (more content not included)... Normal [employer] Tobacco Screening.on Tobacco use status [facility] b) No -[facility] Work Phone: Tobacco Screening.on Tobacco use status [facility] b) No -[facility] Work Phone: US Abdomen, Limitedon 2017 INR [...] by: Buddy Cabrera MD Technologist: BS Normal [facility] Chlamydia GC by PCRon 2017 Chlamydia by PCR. Not Detected Normal Not Detected [facility] Comment on above: Result Comment: Xper t CT/NG Assay performance has not been evaluated in patients less than 14 years of age. Performed By: #### 2 253889 ####JAYLENE JchQgeb4450 [place] [address] Gonorrhoeae by PCR Not Detected Normal Not Detected [facility] Comment on above: Result Comment: Xper t CT/NG Assay performance has not been evaluated in patients less than 14 years of age. Performed By: #### 2 254450 ####JAYLENE Shepherdo[address] [place] [address] Auto Diffon 10-12-2017 Basophils Auto #/vol (Bld) 0.1 E3/mcL Normal 0.0-0.2 [facility] Comment on above: Order Comment: Order Added by Discern Expert. Performed By: #### 2 025401 ####JAYLENE Shepherdo[address] [place] [address] Basophils/100 WBC Auto (Bld) 0.6 % Normal 0.0-2.0 [facility] Comment on above: Order Comment: Order Added by Discern Expert. Performed By: #### 2 809089 ####JAYLENE [address]do[address] [place] [address] Eos Absolute 0.1 E3/mcL Normal 0.0-0.7 [facility] Comment on above: Order Comment: Order Added by Discern Expert. Performed By: #### 2 155470 ####JAYLENE [address] [place] [address] Eosinophils/100 leukocytes 0.9 % Normal 0.0-11.0 [facility] Comment on above: Order Comment: Order Added by Discern Expert. Performed By: #### 2 811457 ####JAYLENE [address] [place] [address] Lymphocytes 3.8 E3/mcL High 1.2-3.4 [facility] Comment on above: Order Comment: Order Added by Discern Expert. Performed By: #### 2 958297 ####JAYLENE [address] [place] [address] Lymphocytes/100 leukocytes 43.4 % Normal 20.0-55.0 [facility] Comment on above: Order Comment: Order Added by Discern Expert. Performed By: #### 2 068069 ####JAYLENE RileyGiiEgeb7836 [place] [address] [place] Absolute 0.7 E3/mcL Normal 0.0-0.7 [facility] Comment on above: Order Comment: Order Added by Discern Expert. Performed By: #### 2 378731 ####JAYLENE [address] [place] [address] Monocytes/100 leukocytes 8.4 % Normal 0.0-10.0 [facility] Comment on above: Order Comment: Order Added by Discern Expert. Performed By: #### 2 213055 ####JAYLENE [address] [place] [address] Neutro Absolute 4.1 E3/mcL Normal 1.4-6.5 [facility] Comment on above: Order Comment: Order Added by Discern Expert. Performed By: #### 2 041391 ####JAYLENE [address] [place] [address] Neutro Auto 46.7 % Normal 37.0-75.0 [facility] Comment on above: Order Comment: Order Added by Discern Expert. Performed By: #### 2 753250 ####JAYLENE [address] [place] [address] BMPon 10-12-2017 BUN/Creatinine Ratio 18.6 ratio Normal 5.4-30.0 [facility] Comment on above: Performed By: #### 2 747664 ####JAYLENE [address] [place] [address] Creatinine 0.7 mg/dL Normal 0.6-1.3 [facility] Comment on above: Performed By: #### 2 948854 ####JAYLENE [address] [place] [address] Urea nitrogen 13 mg/dL Normal 7-18 [facility] Comment on above: Performed By: #### 2 360522 ####JAYLENE [address] [place] [address] Calcium 9.2 mg/dL Normal 8.4-10.2 [facility] Comment on above: Performed By: #### 2 138476 ####JAYLENE [address] [place] [address] Chloride 105 mmol/L Normal 98-107 [facility] Comment on above: Performed By: #### 2 758505 ####JAYLENE [address] [place] [address] CO2 22.8 mmol/L Low 24.0-30.0 [facility] Comment on above: Performed By: #### 2 702949 ####JAYLENE [address] [place] [address] Glucose mass conc 94 mg/dL Normal 70-99 [facility] Comment on above: Performed By: #### 2 138629 ####JAYLENE [address] [place] [address] Potassium molar conc 3.9 mmol/L Normal 3.5-5.1 [facility] Comment on above: Performed By: #### 2 271095 ####JAYLENE [address] [place] [address] Sodium 136 mmol/L Normal 136-145 [facility] Comment on above: Performed By: #### 2 968341 ####JAYLENE [address] [place] [address] CBC w/ Auto Diffon 8 Erythrocyte distribution width Auto Ratio (RBC) 12.8 % Normal 11.5-14.5 [facility] Comment on above: Performed By: #### 2 472973 ####JAYLENE [address] [place] [id number] Erythrocytes (RBC) 4.54 E6/mcL Normal 3.90-5.40 [facility] Comment on above: Performed By: #### 2 175172 ####JAYLENE [address] [place] [address] Hematocrit (HCT) 38.9 % Normal 36.0-48.0 [facility] Comment on above: Performed By: #### 2 085347 ####JAYLENE [address] [place] [address] Hemoglobin mass conc (Bld) 13.3 g/dL Normal 12.0-16.0 [facility] Comment on above: Performed By: #### 2 486118 ####JAYLENE [address] [place] [address] MCH 29.3 pg Normal 27.0-31.0 [facility] Comment on above: Performed By: #### 2 691968 ####JAYLENE [address]do[address] [place] [address] MCHC mass conc (RBC) 34.2 g/dL Normal 33.0-37.0 [facility] Comment on above: Performed By: #### 2 842355 ####JYALENE RileyTgeVzlg2292 [place] [address] MCV 85.7 fL Normal 78.0-100.0 [facility] Comment on above: Performed By: #### 2 237137 ####JAYLENE [address] [place] [address] Platelet mean volume (PMV) 8.1 fL Normal 7.4-11.0 [facility] Comment on above: Performed By: #### 2 829509 ####JAYLENE [address] [place] [address] Platelets 293 E3/mcL Normal 130-400 [facility] Comment on above: Performed By: #### 2 143320 ####JAYLENE [address] [place] [address] WBC (Leukocytes) 8.8 E3/mcL Normal 3.6-11.0 [facility] Comment on above: Performed By: #### 2 542636 ####JAYLENE Shpeherdo[address] [place] [address] CT Abdomen/Pelvis w/ Contras ton 10-12-2017 CT [...] amSigned by: Tae Carbone MD Technologist: BOWEN Plasencia [facility] Hep Func Panelon 10-12-2017 Alanine aminotransferase (ALT) 14 Int._Unit/L Normal 10-40 [facility] Comment on above: Performed By: #### 2 166459 ####JAYLENE RileyOvsBrqc5345 [place] [address] Albumin 4.3 g/dL Normal 3.2-5.0 [facility] Comment on above: Performed By: #### 2 718231 ####JAYLENERas RileyJfiFgnt6725 [place] [address] Albumin/Globulin Ratio 1.5 {ratio} Normal 1.1-1.9 [facility] Comment on above: Performed By: #### 2 194943 ####JAYLENERas RileyLpqVvyp7791 [place] [address] Alk Phos 33 Int._Unit/L Low 42-121 [facility] Comment on above: Performed By: #### 2 942589 ####JAYLENERas RileyUncJyef3257 [place] [address] Aspartate aminotransferase (AST) 19 Int._Unit/L Normal 10-42 [facility] Comment on above: Performed By: #### 2 571443 ####JAYLENE RileyQndLenn9355 [place] [address] Bili Direct <.10 Normal .00-.20 [facility] Comment on above: Performed By: #### 2 497047 ####JAYLENE [address] [place] [address] Bili Indirect >0.3 Normal [facility] Comment on above: Result Comment: No e stablished ranges available for the Indirect Biliruben. Performed By: #### 2 807709 ####JAYLENE [address] [place] [address] Bili Total 0.4 mg/dL Normal 0.2-1.0 [facility] Comment on above: Performed By: #### 2 637829 ####JAYLENE [address] [place] [address] Globulin 2.9 g/dL Normal 2.0-4.0 [facility] Comment on above: Performed By: #### 2 953488 ####JAYLENE [address] [place] [address] Protein 7.2 g/dL Normal 6.4-8.3 [facility] Comment on above: Performed By: #### 2 871175 ####JAYLENE [address] [place] [address] Lipase Levelon 10-12-2017 Lipase Lvl 21 U/L Normal 8-57 [facility] Comment on above: Performed By: #### 2 880100 ####JAYLENE RileyWmvRxes7251 [place] [address] U BhCG Qlton 10-12-2017 HCG.beta subunit Qn Negative Normal Neg [facility] Comment on above: Performed By: #### 2 223564 ####JAYLENE RileyKvpEpwe4514 [place] [address] UA Completeon 10-12-2017 UA Blood Negative Normal Negative [facility] Comment on above: Performed By: #### 2 880840 ####JAYLENE RileyOsyGtah4780 [place] [address] UA Bacteria Trace Abnormal None [facility] Comment on above: Performed By: #### 2 346635 ####JAYLENE RileyKmwDofh3966 [place] [address] UA Clarity Clear Normal Clear [facility] Comment on above: Performed By: #### 2 627543 ####JAYLENE [address] [place] [address] UA Leuk Est Trace Normal Negative [facility] Comment on above: Performed By: #### 2 087506 ####JAYLENE [address] [place] [address] UA Mucous Trace Abnormal Trace [facility] Comment on above: Performed By: #### 2 949339 ####JAYLENE [address] [place] [address] UA Nitrite Negative Normal Negative [facility] Comment on above: Performed By: #### 2 418354 ####JAYLENE PfqGvyf0902 [place] [address] UA pH 5.0 Normal 4.6-8.0 [facility] Comment on above: Performed By: #### 2 752170 ####JAYLENE DvnSkgn3152 [place] [address] UA Protein Negative Normal Negative [facility] Comment on above: Performed By: #### 2 087864 ####JAYLENE OmsUvhs3940 [place] [address] UA Spec Grav 1.010 Normal 1.003-1.030 [facility] Comment on above: Performed By: #### 2 176220 ####JAYLENE MsqSfhc3659 [place] [address] UA Squam Epithelial 0-5 Normal 0-5 [facility] Comment on above: Performed By: #### 2 968327 ####JAYLENE OjcItkp3780 [place] [address] UA Urobilinogen Negative Normal [facility] Comment on above: Performed By: #### 2 846930 ####JAYLENE QbfHduq9088 [place] [address] UA WBC 0-5 Normal 0-5 [facility] Comment on above: Performed By: #### 2 236489 ####JAYLENE YiqRilq0513 [place] [address] Urine, color Straw Normal Yellow [facility] Comment on above: Performed By: #### 2 648944 ####JAYLENERas RileyUeqHkch[address] [place] [address] Urine, erythrocytes 0-3 Normal 0-3 [facility] Comment on above: Performed By: #### 2 882264 ####JAYLENE [address] [place] [address] Urine, glucose Negative Normal Negative [facility] Comment on above: Performed By: #### 2 780704 ####JAYLENE [address] [place] [address] Urine, ketones presence Negative Normal Negative [facility] Comment on above: Performed By: #### 2 785475 ####JAYLENE [address] [place] [address] Urine, urobilinogen Negative Normal Negative [facility] Comment on above: Performed By: #### 2 945714 ####JAYLENE [address] [place] [address] eGFRon 10-12-2017 eGFR (non-black) mL/min/{1.73_m2} Normal [facility] Comment on above: Order Comment: Order added by Discern Expert. Performed By: #### 2 336170 ####JAYLENE [address] [place] [address] Hep A,B, C Panelon 8 BSA (Body Surface Area) Negative Normal Negative [facility] Comment on above: Performed By: #### 2 608282 ####JAYLENE [address] [place] [address] Hep A IgM Negative Normal Negative [facility] Comment on above: Performed By: #### 2 563400 ####JAYLENE [address] [place] [address] Hep B Core IgM Negative Normal Negative [facility] Comment on above: Performed By: #### 2 413798 ####JAYLENE RileyIlkRulk0105 [place] [address] Hep C Ab <0.1 Normal 0.0-0.9 [facility] Comment on above: Result Comment: Nega tive: < 0.8 Indeterminate: 0.8 - 0.9 Positive: > 0.9 The CDC recommends that a positive HCV antibody result be followed up with a HCV Nucleic Acid Amplification test (669010).Performed At: [facility] Jgibma[address] [place], [place] [id number] Vincent PhD Ph:[phone] Performed By: #### 2 389383 ####JAYLENE RileyTvlIqdu[address] 09-26-19 18 Status See Ref Lab Report [facility] Comment on above: Order Comment: CMV I gM Performed By: #### 2 789941 ####JAYLENE MdkLkfr3919 [place] [address] Status See Ref Lab Report [facility] Comment on above: Order Comment: CMV I gG Performed By: #### 2 521497 ####JAYLENE HodFvua3773 [place] [address] Status See Ref Lab Report [facility] Comment on above: Order Comment: EBV p benton Performed By: #### 2 392545 ####JAYLENE FafKwqs9525 [place] [address] Lab [facility] 09-25-19 Test Name [place] [id number] [facility] Comment on above: Order Comment: CMV I gG Performed By: #### 2 094733 ####JAYLENE KjxRkzm0276 [place] [address] Test [place] [id number] [facility] Comment on above: Order Comment: CMV I gM Performed By: #### 2 441605 ####JAYLENE FtxPyce2040 [place] [address] Test Name [place] [id number] [facility] Comment on above: Order Comment: EBV p benton Performed By: #### 2 183272 ####JAYLENE SodIgrp5750 [place] [address] MRI Brain w/ + w/o Contrasto n [...] by: Holden Ponce DO Technologist: KATHERIN Normal [facility] Auto Diffon 09-11-2017 Basophils Auto #/vol (Bld) 0.0 E3/mcL Normal 0.0-0.2 [facility] Comment on above: Order Comment: Order Added by Discern Expert. Performed By: #### 2 985636 ####JAYLENE RileyJsaEgyz4198 [place] [address] Basophils/100 WBC Auto (Bld) 0.6 % Normal 0.0-2.0 [facility] Comment on above: Order Comment: Order Added by Discern Expert. Performed By: #### 2 555353 ####JAYLENE RileyMtjKypp1183 [place] [address] Eos Absolute 0.0 E3/mcL Normal 0.0-0.7 [facility] Comment on above: Order Comment: Order Added by Discern Expert. Performed By: #### 2 927584 ####JAYLENE RileyBlmJggj6326 [place] [address] Eosinophils/100 leukocytes 0.5 % Normal 0.0-11.0 [facility] Comment on above: Order Comment: Order Added by Discern Expert. Performed By: #### 2 840657 ####JAYLENE RileyOcdInat1690 [place] [address] Lymphocytes 1.7 E3/mcL Normal 1.2-3.4 [facility] Comment on above: Order Comment: Order Added by Discern Expert. Performed By: #### 2 514528 ####JAYLENE [address] [place] [address] Lymphocytes/100 leukocytes 33.0 % Normal 20.0-55.0 [facility] Comment on above: Order Comment: Order Added by Discern Expert. Performed By: #### 2 188398 ####JAYLENE [address] [place] [address] [place] Absolute 0.4 E3/mcL Normal 0.0-0.7 [facility] Comment on above: Order Comment: Order Added by Discern Expert. Performed By: #### 2 805710 ####JAYLENE [address] [place] [address] Monocytes/100 leukocytes 7.0 % Normal 0.0-10.0 [facility] Comment on above: Order Comment: Order Added by Discern Expert. Performed By: #### 2 159758 ####JAYLENE [address] [place] [address] Neutro Absolute 3.1 E3/mcL Normal 1.4-6.5 [facility] Comment on above: Order Comment: Order Added by Discern Expert. Performed By: #### 2 372595 ####JAYLENE Sehpherdo1025 [place] [address] Neutro Auto 58.9 % Normal 37.0-75.0 [facility] Comment on above: Order Comment: Order Added by Discern Expert. Performed By: #### 2 825857 ####JAYLENE RileyZigFyle8931 [place] [address] BhCG Quanton 09-11-2017 HCG.beta subunit Qn m[IU]/mL Normal [facility] Comment on above: Result Comment: FEMA LE (NON-) & MALE <3 BORDERLINE 3 - 5 SUGGEST REPEAT TESTING FEMALE () 1 D - 1 WK 5 - 50 1 - 2 WK 50 - 500 2 - 3 WK 100 - 5000 3 - 4 WK 500 - 25880 4 - 5 WK 1000 - 13419 5 - 6 WK 30161 - 660490 6 - 8 WK 70321 - 374126 2 - 3 [place] [address] - 496788 Performed By: #### 2 274995 ####JAYLENE YmtCsmg9461 [place] [address] CBC w/ Auto Diffon 8 Erythrocyte distribution width Auto Ratio (RBC) 13.0 % Normal 11.5-14.5 [facility] Comment on above: Performed By: #### 2 002262 ####JAYLENE PsuSsph8370 [place] [address] Erythrocytes (RBC) 4.74 E6/mcL Normal 3.90-5.40 [facility] Comment on above: Performed By: #### 2 579972 ####JAYLENERas RileySznRcsl3000 [place] [address] Hematocrit (HCT) 40.9 % Normal 36.0-48.0 [facility] Comment on above: Performed By: #### 2 654420 ####JAYLENERas RileyWyyJmxt4882 [place] [address] Hemoglobin mass conc (Bld) 14.5 g/dL Normal 12.0-16.0 [facility] Comment on above: Performed By: #### 2 124177 ####JAYLENE HlrUhfk2353 [place] [address] MCH 30.5 pg Normal 27.0-31.0 [facility] Comment on above: Performed By: #### 2 876652 ####JAYLENERas RileyVbgHnqz8392 [place] [address] MCHC mass conc (RBC) 35.3 g/dL Normal 33.0-37.0 [facility] Comment on above: Performed By: #### 2 863368 ####JAYLENE GsgDbzb9171 [place] [address] MCV 86.3 fL Normal 78.0-100.0 [facility] Comment on above: Performed By: #### 2 621328 ####JAYLENE ErbBblv7601 [place] [address] Platelet mean volume (PMV) 7.5 fL Normal 7.4-11.0 [facility] Comment on above: Performed By: #### 2 721238 ####JAYLENE [address] [place] [address] Platelets 295 E3/mcL Normal 130-400 [facility] Comment on above: Performed By: #### 2 605743 ####JAYLENE [address] [place] [address] WBC (Leukocytes) 5.2 E3/mcL Normal 3.6-11.0 [facility] Comment on above: Performed By: #### 2 635960 ####JAYLENE [address]do[address] [place] [address] CMPon 09-11-2017 Alanine aminotransferase (ALT) 23 Int._Unit/L Normal 10-40 [facility] Comment on above: Performed By: #### 2 507994 ####JAYLENE IimIede0495 [place] [address] Albumin 4.3 g/dL Normal 3.2-5.0 [facility] Comment on above: Performed By: #### 2 930116 ####JAYLENE DzkXfiy0066 [place] [address] Albumin/Globulin Ratio 1.5 {ratio} Normal 1.1-1.9 [facility] Comment on above: Performed By: #### 2 308842 ####JAYLENE PuqXpjy7188 [place] [address] Alk Phos 34 Int._Unit/L Low 42-121 [facility] Comment on above: Performed By: #### 2 052396 ####JAYLENE PtlJqdo8783 [place] [address] Aspartate aminotransferase (AST) 24 Int._Unit/L Normal 10-42 [facility] Comment on above: Performed By: #### 2 079313 ####JAYLENE QadRayh2912 [place] [address] Bili Total 0.6 mg/dL Normal 0.2-1.0 [facility] Comment on above: Performed By: #### 2 169701 ####JAYLENERas MedinaNqnEqnp8728 [place] [address] BUN/Creatinine Ratio 18.3 ratio Normal 5.4-30.0 [facility] Comment on above: Performed By: #### 2 449830 ####JAYLENE ZpsWuxc3732 [place] [address] Calcium 9.2 mg/dL Normal 8.4-10.2 [facility] Comment on above: Performed By: #### 2 252545 ####JAYLENE QluMzkj5729 [place] [address] Chloride 105 mmol/L Normal 98-107 [facility] Comment on above: Performed By: #### 2 058180 ####JAYLENE OztFnrz2373 [place] [address] CO2 24.3 mmol/L Normal 24.0-30.0 [facility] Comment on above: Performed By: #### 2 243490 ####JAYLENE CkzGojs9571 [place] [address] Creatinine 0.6 mg/dL Normal 0.6-1.3 [facility] Comment on above: Performed By: #### 2 573610 ####JAYLENE FrgFamz7415 [place] [address] Globulin 2.8 g/dL Normal 2.0-4.0 [facility] Comment on above: Performed By: #### 2 783480 ####JAYLENE JixLtwf7520 [place] [address] Glucose mass conc 92 mg/dL Normal 70-99 [facility] Comment on above: Performed By: #### 2 040673 ####JAYLENE YplBrbh6413 [place] [address] Potassium molar conc 3.8 mmol/L Normal 3.5-5.1 [facility] Comment on above: Performed By: #### 2 102304 ####JAYLENE AalGwwj9757 [place] [address] Protein 7.1 g/dL Normal 6.4-8.3 [facility] Comment on above: Performed By: #### 2 394559 ####JAYLENE OazCkky9959 [place] [address] Sodium 137 mmol/L Normal 136-145 [facility] Comment on above: Performed By: #### 2 813635 ####JAYLENE BulNepd8385 [place] [address] Urea nitrogen 11 mg/dL Normal 7-18 [facility] Comment on above: Performed By: #### 2 879362 ####JAYLENE IezJgpe4828 [place] [address] TSHon 09-11-2017 Thyroid stimulating hormone (TSH) 1.52 mIU/m Normal 0.30-5.60 [facility] Comment on above: Performed By: #### 2 702038 ####JAYLENE HwqKzvh8028 [place] [address] UA Completeon 09-11-2017 UA Blood Negative Normal Negative [facility] Comment on above: Performed By: #### 8 6870848 ####JAYLENE Urinalysis Automated [address]qkfydmlob[address] [place] [address] UA Clarity Clear Normal Clear [facility] Comment on above: Performed By: #### 8 4046019 ####JAYLENE Urinalysis Automated [address]hybwpzujb[address] [place] [address] UA Leuk Est Trace Normal Negative [facility] Comment on above: Performed By: #### 8 6442393 ####JAYLENE Urinalysis Automated Jldiixufjx[address] [place] [address] UA Mucous Trace Abnormal Trace [facility] Comment on above: Performed By: #### 8 8407244 ####JAYLENE Urinalysis Automated [address]fgfct[address] [place] [address] UA Nitrite Negative Normal Negative [facility] Comment on above: Performed By: #### 8 9993730 ####JAYLENE Urinalysis Automated Tsxypuohwa5607 [place] [address] UA pH 5.0 Normal 4.6-8.0 [facility] Comment on above: Performed By: #### 8 4677240 ####JAYLENE Urinalysis Automated Wyinitzylk9523 [place] 9374205 UA Protein Negative Normal Negative [facility] Comment on above: Performed By: #### 8 9629325 ####JAYLENE Urinalysis Automated Ergfzuolot4567 [place] 9374205 UA Spec Grav 1.016 Normal 1.003-1.030 [facility] Comment on above: Performed By: #### 8 6760572 ####JAYLENE Urinalysis Automated Mwyraqebfv6860 [place] [address] UA Squam Epithelial 0-5 Normal 0-5 [facility] Comment on above: Performed By: #### 8 4275572 ####JAYLENE Urinalysis Automated Zzemxievna2305 [place] [address] UA Urobilinogen Negative Normal [facility] Comment on above: Performed By: #### 8 6970963 ####JAYLENE Urinalysis Automated Tyfedxyvew4376 [place] [address] UA WBC 0-5 Normal 0-5 [facility] Comment on above: Performed By: #### 8 4043894 ####JAYLENE Urinalysis Automated Mtigmtosyp1264 [place] [address] Urine, color Yellow Normal Yellow [facility] Comment on above: Performed By: #### 8 8888228 ####JAYLENE Urinalysis Automated Qbhfflogjo5070 [place] [address] Urine, glucose Negative Normal Negative [facility] Comment on above: Performed By: #### 8 6925388 ####JAYLENE Urinalysis Automated Xruairiwbn6776 [place] [address] Urine, ketones presence Negative Normal Negative [facility] Comment on above: Performed By: #### 8 4895713 ####JAYLENE Urinalysis Automated Fbvctbibrx5364 [place] [address] Urine, urobilinogen Negative Normal Negative [facility] Comment on above: Performed By: #### 8 3666510 ####JAYLENE Urinalysis Automated [address]gebjnbv[address] [place] [address] XR Chest 2 Viewson 8 XR Chest 2 Views Exam Date/Time: 10:28 ESTReason for Exam:Other (please specify)ReportEXAM: XR Chest 2 ViewsDATE: 09/11/2017, 11:54 AMACCESSION: [id number].HISTO RY: Intermittent fever.COMPARISON: None.FINDINGS: Heart and mediastinum are within normal limits. Lungs are clearbilaterally. Skeleton is age appropriate.IMPRESSION:No acute disease by radiography. FINAL REPORT Dictated: 09/11/2017 12:01 pm Eh Hernandez MDSiceciliaed (Electronic Signature): 09/11/2017 12:01 pmSigned by: Eh Hernandez MD Technologist: VISHAL Normal [facility] eGFRon 09-11-2017 eGFR (non-black) mL/min/{1.73_m2} Normal [facility] Comment on above: Order Comment: Order added by Discern Expert. Performed By: #### [id number] ####JAYLENE [id number] [place] [id number] Lab Miscellaneouson 01-24-20 17 Status See Ref Lab Report Normal [facility] Comment on above: Order Comment: Pap w ith HPV Performed By: #### [id number] ####JAYLENE Send Outs [id number] [place] [id number] [facility] Test Name Pap Smear Normal [facility] Comment on above: Order Comment: Pap w ith HPV Performed By: #### 1 [id number] ####JAYLENE Send Outs [id number] [place] [id number] Vital Signs Date Time Vital Sign Value Performing Clinician Facility 02-16-2025 11:29-0400 Body height 172.72 cm Noemi Strange ON [employer] Work Phone: [facility] 02-16-2025 11:29-0400 Body mass index (BMI) [Ratio] 33.1 kg/m2 Noemi Strange [employer] Work Phone: [facility] 02-16-2025 11:29-0400 Body weight 98.88 kg Noemi Strange ON [employer] Work Phone: [facility] 02-16-2025 11:26-0400 Diastolic blood pressure 76 mm[Hg] Noemi Strange ON [employer] Work Phone: [facility] 02-16-2025 11:26-0400 Heart rate 90 /min Noemi Strange [employer] Work Phone: [facility] 02-16-2025 11:26-0400 Systolic blood pressure 126 mm[Hg] Noemi Strange ON [employer] Work Phone: [facility] 02-16-2025 11:22-0400 Body temperature 98.3 [degF] Noemi Guillenitz ON [employer] Work Phone: [facility] 02-16-2025 11:22-0400 Respiratory rate 18 /min Noemi Guillenitz ON [employer] Work Phone: [facility] 02-14-2025 11:16-0400 Diastolic blood pressure 81 mm[Hg] Noemi Alie ON [employer] Work Phone: [facility] 02-14-2025 11:16-0400 Heart rate 96 /min Noemi Alie ON [employer] Work Phone: [facility] 02-14-2025 11:16-0400 Systolic blood pressure 131 mm[Hg] Noemi Guillenitz ON [employer] Work Phone: [facility] 02-14-2025 11:02-0400 SaO2% (BldA) [Mass fraction] 98 % Noemi Guillenitz ON [employer] Work Phone: [facility] 02-14-2025 11:00-0400 Body temperature 97.6 [degF] Noemi Guillenitz ON [employer] Work Phone: [facility] 02-14-2025 11:00-0400 Respiratory rate 18 /min Noemi Guillenitz ON [employer] Work Phone: [facility] 02-14-2025 10:53-0400 Body height 172.72 cm Noemiayush Strange ON [employer] Work Phone: [facility] 02-14-2025 10:53-0400 Body mass index (BMI) [Ratio] 33.1 kg/m2 Noemi Strange ON [employer] Work Phone: [facility] 02-14-2025 10:53-0400 Body weight 98.9 kg Noemi Strange ON [employer] Work Phone: [facility] 02-10-2025 09:01-0400 Body mass index (BMI) [Ratio] 32.84 kg/m2 Chanda Santana MD Work Phone: [facility] 02-10-2025 09:01-0400 Body weight 97.98 kg Chanda Santana MD Work Phone: [facility] 02-10-2025 09:01-0400 Diastolic blood pressure 78 mm[Hg] Chanda Santana MD Work Phone: [facility] 02-10-2025 09:01-0400 Systolic blood pressure 118 mm[Hg] Chanda Santana MD Work Phone: [facility] 02-01-2025 13:44-0400 Body mass index (BMI) [Ratio] 32.93 kg/m2 Shade Alexander MD Work Phone: [facility] 02-01-2025 13:44-0400 Body weight 98.25 kg Shade Alexander MD Work Phone: [facility] 02-01-2025 13:44-0400 Diastolic blood pressure 88 mm[Hg] Shade Alexander MD Work Phone: [facility] 02-01-2025 13:44-0400 Systolic blood pressure 124 mm[Hg] Shade Alexander MD Work Phone: [facility] 01-27-2025 10:54-0400 Body mass index (BMI) [Ratio] 32.69 kg/m2 Lizzeth Ramos MD Work Phone: [facility] 01-27-2025 10:54-0400 Body weight 97.52 kg Lizzeth Ramos MD Work Phone: [facility] 01-27-2025 10:54-0400 Diastolic blood pressure 68 mm[Hg] Lizzeth Ramos MD Work Phone: [facility] 01-27-2025 10:54-0400 Systolic blood pressure 118 mm[Hg] Lizzeth Ramos MD Work Phone: [facility] 01-12-2025 12:06-0400 Diastolic blood pressure 75 mm[Hg] Prabha Quevedo SOCIAL INSURANCE ANALYST.CNM Work Phone: [facility] Comment on above: ANTHONY BP Average 01-12-2025 12:06-0400 Systolic blood pressure 123 mm[Hg] Prabha Quevedo SOCIAL INSURANCE ANALYST.CNM Work Phone: [facility] Comment on above: ANTHONY BP Average 01-12-2025 11:23-0400 Body mass index (BMI) [Ratio] 32.36 kg/m2 Prabha Quevedo SOCIAL INSURANCE ANALYST.CNM Work Phone: [facility] 01-12-2025 11:23-0400 Body weight 96.53 kg Prabha Quevedo SOCIAL INSURANCE ANALYST.CNM Work Phone: [facility] 01-04-2025 13:32-0400 Body mass index (BMI) [Ratio] 32.39 kg/m2 Pauline King SOCIAL INSURANCE ANALYST.CNM Work Phone: [facility] 01-04-2025 13:32-0400 Body weight 96.62 kg Pauline King SOCIAL INSURANCE ANALYST.CNM Work Phone: [facility] 01-04-2025 13:32-0400 Diastolic blood pressure 80 mm[Hg] Pauline King SOCIAL INSURANCE ANALYST.CNM Work Phone: [facility] 01-04-2025 13:32-0400 Systolic blood pressure 120 mm[Hg] Apuline King SOCIAL INSURANCE ANALYST.CNM Work Phone: [facility] 12-21-2024 13:24-0400 Body mass index (BMI) [Ratio] 32.08 kg/m2 Lizzeth Ramos MD Work Phone: [facility] 12-21-2024 13:24-0400 Body weight 95.71 kg Lizzeth Ramos MD Work Phone: [facility] 12-21-2024 13:24-0400 Diastolic blood pressure 74 mm[Hg] Lizzeth Ramos MD Work Phone: [facility] 12-21-2024 13:24-0400 Systolic blood pressure 126 mm[Hg] Lizzeth Ramos MD Work Phone: [facility] 12-07-2024 13:08-0400 Body mass index (BMI) [Ratio] 31.47 kg/m2 Shade Alexander MD Work Phone: [facility] 12-07-2024 13:08-0400 Body weight 93.89 kg Shade Alexander MD Work Phone: [facility] 12-07-2024 13:08-0400 Diastolic blood pressure 78 mm[Hg] Shade Alexander MD Work Phone: [facility] 12-07-2024 13:08-0400 Systolic blood pressure 130 mm[Hg] Shade Alexander MD Work Phone: [facility] 12-07-2024 07:22-0400 Body mass index (BMI) [Ratio] 31.74 kg/m2 Pauline Norwood SOCIAL INSURANCE ANALYST.PREPAROLE COUNSELING AIDE Work Phone: [facility] 12-07-2024 07:22-0400 Body temperature 98.2 [degF] Pauline Norwood SOCIAL INSURANCE ANALYST.PREPAROLE COUNSELING AIDE Work Phone: [facility] 12-07-2024 07:22-0400 Body weight 94.7 kg Pauline Norwood SOCIAL INSURANCE ANALYST.PREPAROLE COUNSELING AIDE Work Phone: [facility] 12-07-2024 07:22-0400 Diastolic blood pressure 68 mm[Hg] Pauline Norwood SOCIAL INSURANCE ANALYST.PREPAROLE COUNSELING AIDE Work Phone: [facility] 12-07-2024 07:22-0400 Heart rate 100 /min Pauline Norwood SOCIAL INSURANCE ANALYST.PREPAROLE COUNSELING AIDE Work Phone: [facility] 12-07-2024 07:22-0400 Respiratory rate 18 /min Pauline Norwood SOCIAL INSURANCE ANALYST.PREPAROLE COUNSELING AIDE Work Phone: [facility] 12-07-2024 07:22-0400 SaO2% (BldA) [Mass fraction] 98 % Pauline Norwood SOCIAL INSURANCE ANALYST.PREPAROLE COUNSELING AIDE Work Phone: [facility] 12-07-2024 07:22-0400 Systolic blood pressure 120 mm[Hg] Pauline Norwood SOCIAL INSURANCE ANALYST.PREPAROLE COUNSELING AIDE Work Phone: [facility] 11-16-2024 12:58-0400 Body height 172.7 cm Prabha Quevedo SOCIAL INSURANCE ANALYST.CNM Work Phone: [facility] 11-16-2024 12:58-0400 Body mass index (BMI) [Ratio] 32.23 kg/m2 Prabha Wellsts SOCIAL INSURANCE ANALYST.CNM Work Phone: [facility] 11-16-2024 12:58-0400 Body weight 96.16 kg Prabha Quevedo SOCIAL INSURANCE ANALYST.CNM Work Phone: [facility] 11-16-2024 12:58-0400 Diastolic blood pressure 70 mm[Hg] Prabha Quevedo SOCIAL INSURANCE ANALYST.CNM Work Phone: [facility] 11-16-2024 12:58-0400 Systolic blood pressure 118 mm[Hg] Prabha Quevedo SOCIAL INSURANCE ANALYST.CNM Work Phone: [facility] 10-20-2024 09:45-0400 Body mass index (BMI) [Ratio] 31.3 kg/m2 Noemi Strange ON [employer] Work Phone: [facility] 10-20-2024 09:45-0400 Body weight 93.49 kg Noemi Strange ON [employer] Work Phone: [facility] 10-20-2024 09:45-0400 Diastolic blood pressure 75 mm[Hg] Noemi Strange [employer] Work Phone: [facility] 10-20-2024 09:45-0400 Systolic blood pressure 114 mm[Hg] Noemi Strange [employer] Work Phone: [facility] 11-05-2023 15:24-0400 Body height 172.72 cm ON [employer] Noemi Strange ON [employer] Work Phone: [facility] 11-05-2023 15:23-0400 Body mass index (BMI) [Ratio] 30.9 kg/m2 [employer] Noemi Strange [employer] Work Phone: [facility] 11-05-2023 15:23-0400 Body weight 92.19 kg ON [employer] Noemiayush Strange ON [employer] Work Phone: [facility] 11-05-2023 15:23-0400 Diastolic blood pressure 85 mm[Hg] ON [employer] Noemiayush Strange ON [employer] Work Phone: [facility] 11-05-2023 15:23-0400 Systolic blood pressure 128 mm[Hg] ON [employer] Noemiayush Strange ON [employer] Work Phone: [facility] 10-02-2023 15:10-0400 Body height 172.72 cm ON [employer] Noemiayush Strange ON [employer] Work Phone: [facility] 10-02-2023 15:10-0400 Diastolic blood pressure 82 mm[Hg] [employer] Noemi Strange [employer] Work Phone: [facility] 10-02-2023 15:10-0400 Systolic blood pressure 129 mm[Hg] ON [employer] Noemiayush Strange ON [employer] Work Phone: [facility] 10-02-2023 15:09-0400 Body mass index (BMI) [Ratio] 31.4 kg/m2 [employer] Noemiayush Strange ON [employer] Work Phone: [facility] 10-02-2023 15:09-0400 Body weight 93.89 kg ON [employer] Noemi Strange [employer] Work Phone: [facility] 09-27-2023 12:50-0400 Body temperature 98.1 [degF] [employer] Noemi Strange [employer] Work Phone: [facility] 09-27-2023 12:50-0400 Diastolic blood pressure 83 mm[Hg] [employer] Noemiayush Strange ON [employer] Work Phone: [facility] 09-27-2023 12:50-0400 Heart rate 85 /min [employer] Noemi Strange [employer] Work Phone: [facility] 09-27-2023 12:50-0400 Respiratory rate 16 /min ON [employer] Noemi Alie ON [employer] Work Phone: [facility] 09-27-2023 12:50-0400 SaO2% (BldA) [Mass fraction] 97 % [employer] Noemi Guillenitz ON [employer] Work Phone: [facility] 09-27-2023 12:50-0400 Systolic blood pressure 128 mm[Hg] ON [employer] Noemi Alie [employer] Work Phone: [facility] 09-24-2023 13:01-0400 Body height 172.72 cm ON [employer] Noemi Alie [employer] Work Phone: [facility] 09-24-2023 13:01-0400 Body mass index (BMI) [Ratio] 34 kg/m2 [employer] Noemi Alie [employer] Work Phone: [facility] 09-24-2023 13:01-0400 Body weight 101.7 kg ON [employer] Noemi Alie [employer] Work Phone: [facility] 09-21-2023 18:21-0400 Diastolic blood pressure 84 mm[Hg] [employer] Noemi Alie [employer] Work Phone: [facility] 09-21-2023 18:21-0400 Heart rate 94 /min [employer] Noemi Guillenitz [employer] Work Phone: [facility] 09-21-2023 18:21-0400 SaO2% (BldA) [Mass fraction] 97 % [employer] Noemi Alie [employer] Work Phone: [facility] 09-21-2023 18:21-0400 Systolic blood pressure 127 mm[Hg] ON [employer] Noemi Strange [employer] Work Phone: [facility] 09-21-2023 14:55-0400 Body temperature 98.1 [degF] [employer] Noemi Strange [employer] Work Phone: [facility] 09-21-2023 14:55-0400 Respiratory rate 16 /min [employer] Noemi Strange [employer] Work Phone: [facility] 09-21-2023 13:24-0400 Body height 172.72 cm ON [employer] Noemi Alie [employer] Work Phone: [facility] 09-21-2023 13:22-0400 Body mass index (BMI) [Ratio] 34.4 kg/m2 [employer] Noemi Alie [employer] Work Phone: [facility] 09-21-2023 13:22-0400 Body weight 102.56 kg ON [employer] Noemi Alie [employer] Work Phone: [facility] 09-21-2023 13:22-0400 Diastolic blood pressure 85 mm[Hg] ON [employer] Noemi Alie [employer] Work Phone: [facility] 09-21-2023 13:22-0400 Systolic blood pressure 130 mm[Hg] ON [employer] Noemiayush Strange ON [employer] Work Phone: [facility] 09-14-2023 13:38-0500 Body height 172.72 cm ON [employer] Noemi Alie ON [employer] Work Phone: [facility] 09-14-2023 13:38-0500 Body mass index (BMI) [Ratio] 34.4 kg/m2 [employer] Noemi Alie [employer] Work Phone: [facility] 09-14-2023 13:38-0500 Body weight 102.56 kg ON [employer] Noemiayush Strange ON [employer] Work Phone: [facility] 09-14-2023 13:38-0500 Diastolic blood pressure 85 mm[Hg] ON [employer] Noemi Alie ON [employer] Work Phone: [facility] 09-14-2023 13:38-0500 Systolic blood pressure 130 mm[Hg] ON [employer] Noemi Alie ON [employer] Work Phone: [facility] 09-08-2023 14:06-0500 Diastolic blood pressure 80 mm[Hg] ON [employer] Noemi Alie ON [employer] Work Phone: [facility] 09-08-2023 14:06-0500 Systolic blood pressure 119 mm[Hg] ON [employer] Noemiayush Strange ON [employer] Work Phone: [facility] 09-08-2023 13:48-0500 Body height 172.72 cm ON [employer] Noemi Alie ON [employer] Work Phone: [facility] 09-08-2023 13:48-0500 Body mass index (BMI) [Ratio] 34.2 kg/m2 [employer] Noemiayush Strange ON [employer] Work Phone: [facility] 09-08-2023 13:48-0500 Body weight 102.05 kg ON [employer] Noemi Alie ON [employer] Work Phone: [facility] 08-31-2023 14:26-0500 Diastolic blood pressure 85 mm[Hg] ON [employer] Noemiayush Strange ON [employer] Work Phone: [facility] 08-31-2023 14:26-0500 Systolic blood pressure 131 mm[Hg] ON [employer] Noemiayush Strange ON [employer] Work Phone: [facility] 08-31-2023 14:25-0500 Body mass index (BMI) [Ratio] 33.7 kg/m2 [employer] Noemiayush Strange ON [employer] Work Phone: [facility] 08-31-2023 14:25-0500 Body weight 100.69 kg ON [employer] Noemiayush Strange ON [employer] Work Phone: [facility] 08-24-2023 08:25-0500 Body height 172.72 cm ON [employer] Noemiayush Strange ON [employer] Work Phone: [facility] 08-24-2023 08:25-0500 Body mass index (BMI) [Ratio] 34 kg/m2 [employer] Noemiayush Strange ON [employer] Work Phone: [facility] 08-24-2023 08:25-0500 Body weight 101.32 kg ON [employer] Noemiayush Strange ON [employer] Work Phone: [facility] 08-24-2023 08:25-0500 Diastolic blood pressure 82 mm[Hg] ON [employer] Noemiayush Strange ON [employer] Work Phone: [facility] 08-24-2023 08:25-0500 Systolic blood pressure 126 mm[Hg] ON [employer] Noemi Alie ON [employer] Work Phone: [facility] 08-17-2023 09:33-0500 Body mass index (BMI) [Ratio] 33.7 kg/m2 [employer] Noemi Alie ON [employer] Work Phone: [facility] 08-17-2023 09:33-0500 Body weight 100.75 kg ON [employer] Noemi Alie ON [employer] Work Phone: [facility] 08-17-2023 09:33-0500 Diastolic blood pressure 75 mm[Hg] ON [employer] Noemi Alie ON [employer] Work Phone: [facility] 08-17-2023 09:33-0500 Systolic blood pressure 122 mm[Hg] ON [employer] Noemi Alie ON [employer] Work Phone: [facility] 08-05-2023 11:24-0500 Body height 172.72 cm ON [employer] Noemi Alie ON [employer] Work Phone: [facility] 08-05-2023 11:24-0500 Body mass index (BMI) [Ratio] 33 kg/m2 [employer] Noemi Alie ON [employer] Work Phone: [facility] 08-05-2023 11:24-0500 Body weight 98.48 kg ON [employer] Noemi Alie ON [employer] Work Phone: [facility] 08-05-2023 11:24-0500 Diastolic blood pressure 86 mm[Hg] ON [employer] Noemi Alie ON [employer] Work Phone: [facility] 08-05-2023 11:24-0500 Systolic blood pressure 126 mm[Hg] ON [employer] Noemi Alie ON [employer] Work Phone: [facility] 08-03-2023 18:04-0500 Heart rate 84 /min ON [employer] Noemiayush Strange ON [employer] Work Phone: [facility] 08-03-2023 18:04-0500 SaO2% (BldA) [Mass fraction] 98 % [employer] Noemi Guillenitz ON [employer] Work Phone: [facility] 08-03-2023 16:59-0500 Body mass index (BMI) [Ratio] 33.1 kg/m2 [employer] Noemi Alie ON [employer] Work Phone: [facility] 08-03-2023 16:59-0500 Body weight 98.79 kg ON [employer] Noemi Alie ON [employer] Work Phone: [facility] 08-03-2023 15:27-0500 Body temperature 98.4 [degF] ON [employer] Noemiayush Strange ON [employer] Work Phone: [facility] 08-03-2023 15:26-0500 Diastolic blood pressure 86 mm[Hg] ON [employer] Noemiayush Strange ON [employer] Work Phone: [facility] 08-03-2023 15:26-0500 Systolic blood pressure 120 mm[Hg] ON [employer] Noemiayush Strange ON [employer] Work Phone: [facility] 08-03-2023 13:37-0500 Body mass index (BMI) [Ratio] 33.1 kg/m2 [employer] Noemi Alie ON [employer] Work Phone: [facility] 08-03-2023 13:37-0500 Body weight 98.88 kg ON [employer] Noemi Alie ON [employer] Work Phone: [facility] 08-03-2023 13:37-0500 Diastolic blood pressure 70 mm[Hg] ON [employer] Noemi Alie ON [employer] Work Phone: [facility] 08-03-2023 13:37-0500 Systolic blood pressure 112 mm[Hg] ON [employer] Noemiayush Strange ON [employer] Work Phone: [facility] 07-20-2023 15:24-0500 Body mass index (BMI) [Ratio] 33.3 kg/m2 [employer] Noemi Strange [employer] Work Phone: [facility] 07-20-2023 15:24-0500 Body weight 99.45 kg ON [employer] Noemiayush Strange ON [employer] Work Phone: [facility] 07-20-2023 15:24-0500 Diastolic blood pressure 72 mm[Hg] ON [employer] Noemi Alie ON [employer] Work Phone: [facility] 07-20-2023 15:24-0500 Systolic blood pressure 112 mm[Hg] ON [employer] Noemi Alie ON [employer] Work Phone: [facility] 07-03-2023 13:03-0500 Body mass index (BMI) [Ratio] 32.5 kg/m2 [employer] Noemi Alie [employer] Work Phone: [facility] 07-03-2023 13:03-0500 Body weight 97.29 kg ON [employer] Noemi Alie ON [employer] Work Phone: [facility] 07-03-2023 13:03-0500 Diastolic blood pressure 72 mm[Hg] ON [employer] Noemi Alie ON [employer] Work Phone: [facility] 07-03-2023 13:03-0500 Systolic blood pressure 115 mm[Hg] ON [employer] Noemi Alie ON [employer] Work Phone: [facility] 06-03-2023 10:47-0500 Body mass index (BMI) [Ratio] 32.5 kg/m2 [employer] Noemi Alie ON [employer] Work Phone: [facility] 06-03-2023 10:47-0500 Body weight 97.29 kg ON [employer] Noemi Alie ON [employer] Work Phone: [facility] 06-03-2023 10:47-0500 Diastolic blood pressure 82 mm[Hg] ON [employer] Noemi Alie ON [employer] Work Phone: [facility] 06-03-2023 10:47-0500 Systolic blood pressure 138 mm[Hg] ON [employer] Noemi Alie ON [employer] Work Phone: [facility] 05-05-2023 12:44-0400 Body mass index (BMI) [Ratio] 31.8 kg/m2 [employer] Noemi Alie ON [employer] Work Phone: [facility] 05-05-2023 12:44-0400 Body weight 95.02 kg ON [employer] Noemi Alie ON [employer] Work Phone: [facility] 05-05-2023 12:44-0400 Diastolic blood pressure 82 mm[Hg] ON [employer] Noemi Alie ON [employer] Work Phone: [facility] 05-05-2023 12:44-0400 Systolic blood pressure 122 mm[Hg] ON [employer] Noemi Alie ON [employer] Work Phone: [facility] 04-24-2023 12:18-0400 Diastolic blood pressure 65 mm[Hg] ON [employer] Noemi Alie ON [employer] Work Phone: [facility] 04-24-2023 12:18-0400 Heart rate 74 /min ON [employer] Noemiayush Strange ON [employer] Work Phone: [facility] 04-24-2023 12:18-0400 Systolic blood pressure 109 mm[Hg] ON [employer] Noemi Alie ON [employer] Work Phone: [facility] 04-24-2023 11:10-0400 Body height 172.72 cm ON [employer] Noemi Alie ON [employer] Work Phone: [facility] 04-24-2023 11:10-0400 Body mass index (BMI) [Ratio] 31.7 kg/m2 [employer] Noemiayush Strange ON [employer] Work Phone: [facility] 04-24-2023 11:10-0400 Body temperature 97.4 [degF] ON [employer] Noemiayush Strange ON [employer] Work Phone: [facility] 04-24-2023 11:10-0400 Body weight 94.8 kg ON [employer] Noemi Alie ON [employer] Work Phone: [facility] 04-24-2023 11:10-0400 Respiratory rate 16 /min ON [employer] Noemiayush Strange ON [employer] Work Phone: [facility] 04-24-2023 11:10-0400 SaO2% (BldA) [Mass fraction] 97 % ON [employer] Noemiayush Strange ON [employer] Work Phone: [facility] 04-03-2023 13:53-0400 Body mass index (BMI) [Ratio] 32 kg/m2 ON [employer] Noemiayush Strange ON [employer] Work Phone: [facility] 04-03-2023 13:53-0400 Body weight 95.48 kg ON [employer] Noemiayush Strange ON [employer] Work Phone: [facility] 04-03-2023 13:53-0400 Diastolic blood pressure 78 mm[Hg] ON [employer] Noemiayush Strange ON [employer] Work Phone: [facility] 04-03-2023 13:53-0400 Systolic blood pressure 130 mm[Hg] ON [employer] Noemiayush Strange ON [employer] Work Phone: [facility] 03-05-2023 09:24-0400 Body height 172.72 cm ON [employer] Noemiayush Strange ON [employer] Work Phone: [facility] 03-05-2023 09:22-0400 Body mass index (BMI) [Ratio] 32.4 kg/m2 [employer] Noemiayush Strange ON [employer] Work Phone: [facility] 03-05-2023 09:22-0400 Body weight 96.78 kg ON [employer]-C Noemiayush Strange ON AIR TALENT Work Phone: [facility] 03-05-2023 09:22-0400 Diastolic blood pressure 95 mm[Hg] ON AIR [employer]AL[employer]-C Noemiayush Strange ON [employer] Work Phone: [facility] 03-05-2023 09:22-0400 Systolic blood pressure 135 mm[Hg] ON [employer]-C Noemiayush Strange ON [employer] Work Phone: [facility] 12-18-2022 10:30-0400 Body height 172.72 cm ON AIR TALENT-C Noemiayush Strange ON [employer] Work Phone: [facility] 12-18-2022 10:30-0400 Body mass index (BMI) [Ratio] 32.5 kg/m2 ON [employer]-C Noemiayush Strange ON [employer] Work Phone: [facility] 12-18-2022 10:30-0400 Body weight 97.23 kg ON AIR TALENT-C Noemi Strange ON [employer] Work Phone: [facility] 12-18-2022 10:30-0400 Diastolic blood pressure 87 mm[Hg] ON [employer]-C Noemi Guillenitz ON AIR [employer] Work Phone: [facility] 12-18-2022 10:30-0400 Systolic blood pressure 136 mm[Hg] ON [employer]-C Noemi Strange ON [employer] Work Phone: [facility] 08-04-2022 09:50-0500 Body height 170.18 cm Jose Vizcarra Procious Work Phone: [facility] Work Phone: 08-04-2022 09:50-0500 Body mass index (BMI) [Ratio] 33.12 kg/m2 Jose L Newton Work Phone: [facility] Work Phone: 08-04-2022 09:50-0500 Body surface area Derived from formula 2.07 m2 Jose L Newton Work Phone: -[facility] Work Phone: 08-04-2022 09:50-0500 Body weight 95.91 kg Jose L Procious Work Phone: [facility] Work Phone: 08-04-2022 09:50-0500 Diastolic blood pressure 80 mm[Hg] Jose L Newton Work Phone: -[facility] Work Phone: 08-04-2022 09:50-0500 Heart rate 95 /min Jose L Newton Work Phone: -[facility] Work Phone: 08-04-2022 09:50-0500 Systolic blood pressure 126 mm[Hg] Jose L Newton Work Phone: -[facility] Work Phone: 08-01-2022 19:00-0500 Diastolic blood pressure 95 mm[Hg] Text Entry Free [facility] [place] 08-01-2022 19:00-0500 Heart rate 84 /min Text Entry Free [facility] 08-01-2022 19:00-0500 Respiratory rate 18 /min Text Entry Free [facility] 08-01-2022 19:00-0500 SaO2% (BldA) [Mass fraction] 97 % Text Entry Free [facility] [place] 08-01-2022 19:00-0500 Systolic blood pressure 120 mm[Hg] Text Entry Free [facility] 08-01-2022 15:43-0500 Body height 172.[address] [facility] 08-01-2022 15:43-0500 Body temperature 97.7 [degF] Text Entry Free [facility] 08-01-2022 15:43-0500 Body weight 95.[address] [facility] 01-20-2022 08:38-0400 Body height 170.18 cm Jose Egand Work Phone: [facility] Work Phone: 01-20-2022 08:38-0400 Body mass index (BMI) [Ratio] 33.21 kg/m2 Jose Egand Work Phone: [facility] Work Phone: 01-20-2022 08:38-0400 Body surface area Derived from formula 2.07 m2 Jose Egand Work Phone: [facility] Work Phone: 01-20-2022 08:38-0400 Body weight 96.19 kg Jose Egand Work Phone: [facility] Work Phone: 01-20-2022 08:38-0400 Diastolic blood pressure 84 mm[Hg] Jose Vizcarra Newton Work Phone: [facility] Work Phone: 01-20-2022 08:38-0400 Heart rate 79 /min Jose Vizcarra Procious Work Phone: [facility] Work Phone: 01-20-2022 08:38-0400 Systolic blood pressure 130 mm[Hg] Jose L Newton Work Phone: [facility] Work Phone: 11-26-2021 09:42-0400 Body height 170.18 cm Jose Vizcarra Procious Work Phone: [facility] Work Phone: 11-26-2021 09:42-0400 Body mass index (BMI) [Ratio] 33.07 kg/m2 Jose Vizcarra Procious Work Phone: [facility] Work Phone: 11-26-2021 09:42-0400 Body surface area Derived from formula 2.07 m2 Jose Vizcarra Procious Work Phone: [facility] Work Phone: 11-26-2021 09:42-0400 Body weight 95.77 kg Jose Vizcarra Procious Work Phone: [facility] Work Phone: 11-26-2021 09:42-0400 Diastolic blood pressure 76 mm[Hg] Jose L Procious Work Phone: [facility] Work Phone: 11-26-2021 09:42-0400 Systolic blood pressure 126 mm[Hg] Jose L Procious Work Phone: [facility] Work Phone: 06-17-2021 11:02-0500 Body height 170.18 cm Noemi Zackery Strange Work Phone: [address] Work Phone: 06-17-2021 11:02-0500 Body mass index (BMI) [Ratio] 32.49 kg/m2 Noemi Strange Work Phone: [employer] Work Phone: 06-17-2021 11:02-0500 Body surface area Derived from formula 2.05 m2 Noemi Strange Work Phone: [employer] Work Phone: 06-17-2021 11:02-0500 Body temperature 97.1 [degF] Noemi Strange Work Phone: [employer] Work Phone: 06-17-2021 11:02-0500 Body weight 94.1 kg Noemi Strange Work Phone: [employer] Work Phone: 06-17-2021 11:02-0500 Diastolic blood pressure 80 mm[Hg] Noemi Strange Work Phone: [employer] Work Phone: 06-17-2021 11:02-0500 Systolic blood pressure 120 mm[Hg] Noemi Strange Work Phone: [employer] Work Phone: 04-23-2021 09:54-0400 Body height 170.18 cm Noemi Strange Work Phone: [employer] Work Phone: 04-23-2021 09:54-0400 Body mass index (BMI) [Ratio] 32.56 kg/m2 Noemi Strange Work Phone: [employer] Work Phone: 04-23-2021 09:54-0400 Body surface area Derived from formula 2.06 m2 Noemi Strange Work Phone: [employer] Work Phone: 04-23-2021 09:54-0400 Body temperature 98.2 [degF] Noemi Strange Work Phone: [address] Work Phone: 04-23-2021 09:54-0400 Body weight 94.3 kg Noemi Strange Work Phone: [address] Work Phone: 04-23-2021 09:54-0400 Diastolic blood pressure 78 mm[Hg] Noemi L Alie Work Phone: [address] Work Phone: 04-23-2021 09:54-0400 Systolic blood pressure 118 mm[Hg] Noemi L Alie Work Phone: [address] Work Phone: 02-15-2021 15:26-0400 Body height 170.18 cm Noemi Strange Work Phone: [facility] Work Phone: 02-15-2021 15:26-0400 Body mass index (BMI) [Ratio] 32.89 kg/m2 Noemi Strange Work Phone: [facility] Work Phone: 02-15-2021 15:26-0400 Body surface area Derived from formula 2.06 m2 Noemi Strange Work Phone: [facility] Work Phone: 02-15-2021 15:26-0400 Body weight 95.26 kg Noemi Strange Work Phone: [facility] Work Phone: 02-15-2021 15:26-0400 Diastolic blood pressure 80 mm[Hg] Noemi L Alie Work Phone: [facility] Work Phone: 02-15-2021 15:26-0400 Heart rate 72 /min Noemi Strange Work Phone: [facility] Work Phone: 02-15-2021 15:26-0400 Systolic blood pressure 122 mm[Hg] Noemi L Alie Work Phone: [facility] Work Phone: 01-18-2021 10:08-0400 Body height 170.18 cm Noemi Strange Work Phone: [facility] Work Phone: 01-18-2021 10:08-0400 Body mass index (BMI) [Ratio] 32.65 kg/m2 Noemi Strange Work Phone: [facility] Work Phone: 01-18-2021 10:08-0400 Body surface area Derived from formula 2.06 m2 Noemi Strange Work Phone: [facility] Work Phone: 01-18-2021 10:08-0400 Body weight 94.55 kg Noemi Strange Work Phone: [facility] Work Phone: 01-18-2021 10:08-0400 Diastolic blood pressure 80 mm[Hg] Noemi L Alie Work Phone: [facility] Work Phone: 01-18-2021 10:08-0400 Heart rate 76 /min Noemi L Alie Work Phone: [facility] Work Phone: 01-18-2021 10:08-0400 Systolic blood pressure 118 mm[Hg] Noemi L Alie Work Phone: [facility] Work Phone: 12-18-2020 09:24-0400 Body height 172.7 cm Erma Raedy DO Work Phone: [facility] 12-18-2020 09:24-0400 Body mass index (BMI) [Ratio] 31.6 kg/m2 Erma Raedy DO Work Phone: [facility] 12-18-2020 09:24-0400 Body temperature 98.29 [degF] Erma Raedy DO Work Phone: [facility] 12-18-2020 09:24-0400 Body weight 94.26 kg Erma Raedy DO Work Phone: [facility] 12-18-2020 09:24-0400 Diastolic blood pressure 90 mm[Hg] Erma Raedy DO Work Phone: [facility] 12-18-2020 09:24-0400 Heart rate 75 /min Erma Raedy DO Work Phone: [facility] 12-18-2020 09:24-0400 Respiratory rate 16 /min Erma Raedy DO Work Phone: [facility] 12-18-2020 09:24-0400 SaO2% (BldA) [Mass fraction] 98 % Erma Raedy DO Work Phone: [facility] 12-18-2020 09:24-0400 Systolic blood pressure 135 mm[Hg] Erma Raedy DO Work Phone: [facility] 11-02-2020 09:47-0400 Body height 172.7 cm Erma Raedy DO Work Phone: [facility] 11-02-2020 09:47-0400 Body mass index (BMI) [Ratio] 31.79 kg/m2 Erma Raedy DO Work Phone: [facility] 11-02-2020 09:47-0400 Body temperature 98.6 [degF] Erma Raedy DO Work Phone: [facility] 11-02-2020 09:47-0400 Body weight 94.85 kg Erma Raedy DO Work Phone: [employer] 11-02-2020 09:47-0400 Diastolic blood pressure 90 mm[Hg] Erma Raedy DO Work Phone: [employer] 11-02-2020 09:47-0400 Heart rate 86 /min Erma Raedy DO Work Phone: [employer] 11-02-2020 09:47-0400 Respiratory rate 16 /min Erma Raedy DO Work Phone: [email or web address] [facility] 11-02-2020 09:47-0400 SaO2% (BldA) [Mass fraction] 100 % Erma Raedy DO Work Phone: [email or web address] [facility] 11-02-2020 09:47-0400 Systolic blood pressure 135 mm[Hg] Erma Raedy DO Work Phone: [facility] Encounters Encounter Date Encounter Type Care Provider Facility Start: 02-16-2025 End: 02-16-2025 ambulatory Noemi Strange ON AIR TALENT-C Work Phone: [facility] Start: 02-16-2025 End: 02-16-[address] Lizzeth Ramos MD -[facility] Work Phone: Start: 02-16-2025 End: 02-16-2025 ambulatory SHADE ALEXANDER Facility:[facility] Start: 02-15-2025 End: 02-15-2025 ambulatory PRABHA QUEVEDO Facility:[facility] Start: 02-14-2025 End: 02-14-[address] Shade Alexander MD -[facility] Work Phone: Start: 02-14-2025 End: 02-14-2025 ambulatory Noemi Strange ON AIR TALENT-C Work Phone: -[facility] Start: 02-10-2025 End: 02-10-2025 Patient encounter procedure Chanda Santana MD Work Phone: OB/Gynecology Comment on above: Encounter for superv ision of high risk multigravida of advanced maternal age, antepartum (HCC) (Primary Dx); History of vacuum extraction assisted delivery; Multigravida of advanced maternal age in third trimester (HCC); Uterine size-date discrepancy, third trimester (HCC); 38 weeks gestation of (HCC) Start: 02-10-2025 End: 02-10-2025 ambulatory CHANDA SANTANA Facility:[facility] Start: 02-09-2025 End: 02-09-2025 [facility] Start: 02-09-2025 End: 02-09-2025 [facility] Comment on above: Population Health Na vigation Outreach ( to PCP/OB/) Start: 02-01-2025 End: 02-01-2025 Patient encounter procedure Shade Alexander MD Work Phone: OB/Gynecology Comment on above: 36 weeks gestation o f (HCC) (Primary Dx); Encounter for supervision of high risk multigravida of advanced maternal age, antepartum (HCC); Decreased movements in third trimester, single or unspecified fetus (HCC) Start: 02-01-2025 End: 02-01-2025 ambulatory SHADE ALEXANDER Facility:[facility] Start: 01-27-2025 End: 01-27-2025 Patient encounter procedure Lizzeth Raoms MD Work Phone: OB/Gynecology Comment on above: [...] 01-27-2025 End: 01-27-2025 ambulatory LIZZETH RAMOS Facility:[facility] Start: 01-12-2025 End: 01-12-2025 Patient encounter procedure Prabha Quevedo APRN.CNM Work Phone: OB/Gynecology Comment on above: 34 weeks gestation o f (HCC) (Primary Dx); Encounter for supervision of high risk multigravida of advanced maternal age, antepartum (HCC); History of vacuum extraction assisted delivery; Multigravida of advanced maternal age in third trimester (HCC) Encounter for antena myron screening for malformation using ultrasound (HCC) (Primary Dx); Encounter for supervision of high risk multigravida of advanced maternal age, antepartum (HCC); Uterine size-date discrepancy, third trimester (HCC); 34 weeks gestation of (HCC) Start: 01-12-2025 End: 01-12-2025 ambulatory [facility] Facility:[facility] Start: 01-04-2025 End: 01-04-2025 Patient encounter procedure Pauline King APRN.CNM Work Phone: OB/Gynecology Comment on above: Encounter for superv ision of high risk multigravida of advanced maternal age, antepartum (HCC) (Primary Dx); 32 weeks gestation of (HCC); History of vacuum extraction assisted delivery; Major depressive disorder with current active episode, unspecified depression episode severity, unspecified whether recurrent; Uterine size-date discrepancy, third trimester (HCC); Multigravida of advanced maternal age in second trimester (HCC) Start: 01-04-2025 End: 01-04-2025 [facility] Facility:[facility] Start: 12-21-2024 End: 12-21-2024 Patient encounter procedure Lizzeth Ramos MD Work Phone: OB/Gynecology Comment on above: Encounter for superv ision of high risk multigravida of advanced maternal age, antepartum (HCC) (Primary Dx); History of vacuum extraction assisted delivery; 30 weeks gestation of (HCC); Major depressive disorder with current active episode, unspecified depression episode severity, unspecified whether recurrent Start: 12-21-2024 End: 12-21-2024 ambulatory LIZZETH RAMOS Facility:[facility] Start: 12-12-2024 End: 02-11-2025 Follow-up encounter Shade Alexander MD Work Phone: OB/Gynecology Start: 12-09-2024 End: 12-09-2024 ambulatory [facility] Facility:[facility] Start: 12-08-2024 End: 02-07-2025 Follow-up encounter Prabha Quevedo APRN.CNM Work Phone: OB/Gynecology Start: 12-07-2024 End: 12-07-2024 Patient encounter procedure Shade Alexander MD Work Phone: OB/Gynecology Comment on above: Encounter for superv ision of high risk multigravida of advanced maternal age, antepartum ([facility]) (Primary Dx); Need for vaccination; 28 weeks gestation of ([facility]) Start: 12-07-2024 End: 12-07-2024 ambulatory [facility] Facility:[facility] Start: 12-07-2024 End: 12-07-2024 Patient encounter procedure Pauline Norwood APRN.CNP Work Phone[facility] Comment on above: 28 weeks gestation o f ([facility]) (Primary Dx); Otalgia, right; Acute otitis media, right Start: 12-07-2024 End: 12-07-2024 ambulatory PAULINE NORWOOD Facility:[facility] Start: 12-01-2024 End: 12-01-2024 ambulatory [facility] Start: 11-16-2024 End: 11-16-2024 Patient encounter procedure Prabha Quevedo APRN.CNM Work Phone: OB/Gynecology Comment on above: History of vacuum ex traction assisted delivery (Primary Dx); Low lying placenta nos or without hemorrhage, second trimester ([facility]); Obesity affecting in second trimester, unspecified obesity type ([facility]); Multigravida of advanced maternal age in second trimester ([facility]); Rh negative state in antepartum period ([facility]); Major depressive disorder with current active episode, unspecified depression episode severity, unspecified whether recurrent; Screening for diabetes mellitus; Encounter for supervision of high risk multigravida of advanced maternal age, antepartum ([facility]); History of infection; with care elsewhere in second trimester ([facility]) Start: 11-16-2024 End: 11-16-2024 [facility] Facility:[facility] Start: 10-20-2024 End: 10-20-[address] Lizzeth Abarca DO -[facility] Work Phone: Start: 10-20-2024 End: 10-20-2024 ambulatory Noemi Strange ON AIR TALENT Facility[facility] Start: 09-29-2024 End: 09-29-2024 ambulatory HARLEY [facility] Start: 09-21-2024 End: 09-21-2024 ambulatory Noemi Alie ON AIR TALENT Facility:[facility] Start: 08-24-2024 End: 08-24-2024 ambulatory Ivette Cornell Facility:[facility] Start: 07-28-2024 End: 07-28-2024 ambulatory Jesus Marinelli Facility:[facility] Start: 07-28-2024 End: 07-28-2024 ambulatory Noemi Alie ON AIR TALENT Facility:[facility] Start: 07-15-2024 ambulatory Noemi Strange ON AIR TALENT Facility :[facility] Start: 07-08-2024 End: 07-08-2024 ambulatory Ivette Mccabeony Facility:[facility] Start: 11-05-2023 End: 11-05-2023 ambulatory ON AIR TALENT-C Noemi Strange ON AIR [employer] Work Phone: [facility] Work Phone: Start: 11-05-2023 End: 11-05-2023 Patient encounter procedure ON AIR TALENT-C Noemi Strange ON AIR [employer] Work Phone: [facility]-Laboratory, Specimen Work Phone: Start: 11-05-2023 End: 11-05-2023 Patient encounter procedure ON AIR TALENT-C Noemiayush Strange ON AIR TALENT Work Phone: [facility] Work Phone: Start: 10-02-2023 End: 10-02-2023 ambulatory ON AIR TALENT-C Noemi Alie ON AIR [employer] Work Phone: [facility] Work Phone: Start: 10-02-2023 End: 10-02-2023 Patient encounter procedure ON AIR TALENT-C Noemiayush Strange ON AIR [employer] Work Phone: [facility] Work Phone: Start: 10-02-2023 End: 10-02-2023 Patient encounter procedure ON AIR TALENT-C Noemi Strange ON AIR [employer] Work Phone: [facility] Work Phone: Start: 09-30-2023 End: 09-30-2023 Patient encounter procedure ON AIR TALENT-C Noemi Strange ON AIR [employer] Work Phone: [facility] Work Phone: Start: 09-27-2023 End: 09-27-2023 Patient encounter procedure ON AIR TALENT-C Noemi Strange ON AIR [employer] Work Phone: [facility] Work Phone: Start: 09-27-2023 Non-patient / Non-visit ON AIR TALENT-C Rina Strange ON AIR TALENT Work Phone: [facility] Start: 09-26-2023 Non-patient / Non-visit ON AIR TALENT-C K chema Strange ON AIR TALENT Work Phone: [facility] Start: 09-25-2023 Non-patient / Non-visit ON AIR TALENT-C Rina Strange ON AIR T[employer] Work Phone: [facility] Start: 09-24-2023 Non-patient / Non-visit ON AIR TALENT-C Rina Strange ON AIR T[employer] Work Phone: [facility] Start: 09-24-2023 End: 09-27-2023 Evaluation and management of inpatient ON AIR TALENT-C Noemi Strange ON AIR [employer] [facility] Work [facility]: Start: 09-21-2023 Non-patient / Non-visit ON AIR TALENT-C Rina Strange ON AIR T[employer] Work Phone: [facility] Start: 09-21-2023 End: 09-21-2023 ambulatory ON AIR TALENT-C Noemi Alie ON AIR T[employer] Work Phone: [facility] Work Phone: Start: 09-21-2023 End: 09-21-2023 Patient encounter procedure ON AIR TALENT-C Noemi Alie ON AIR T[employer] Work Phone: [facility] Work Phone: Start: 09-21-2023 End: 09-21-2023 Patient encounter procedure ON AIR TALENT-C Noemi Alie ON AIR TALENT Work Phone: [facility] Work Phone: Start: 09-14-2023 End: 09-14-2023 ambulatory ON AIR TALENT-C Noemi Alie ON AIR T[employer] Work Phone: [facility] Work Phone: Start: 09-14-2023 End: 09-14-2023 Patient encounter procedure ON AIR TALENT-C Noemi Strange ON AIR T[employer] Work Phone: [facility] Work Phone: Start: 09-08-2023 End: 09-08-2023 ambulatory ON AIR TALENT-C Noemi Straneg ON AIR TALENT Work Phone: [facility] Work Phone: Start: 09-08-2023 End: 09-08-2023 Patient encounter procedure ON AIR TALENT-C Noemi Strange ON AIR T[employer] Work Phone: [facility]-Laboratory, Specimen Work Phone: Start: 09-08-2023 End: 09-08-2023 Patient encounter procedure ON AIR TALENT-C Noemi Strange ON AIR T[employer] Work Phone: [facility] Work Phone: Start: 08-31-2023 End: 08-31-2023 Patient encounter procedure ON AIR TALENT-C Noemi Strange ON AIR T[employer] Work Phone: [facility] Work Phone: Start: 08-24-2023 End: 08-24-2023 ambulatory ON AIR TALENT-C Noemi Strange ON AIR T[employer] Work Phone: [facility] Work Phone: Start: 08-24-2023 End: 08-24-2023 Patient encounter procedure ON AIR TALENT-Xiomara Strange ON AIR T[employer]ENT Work Phone: [facility] Work Phone: Start: 08-17-2023 End: 08-17-2023 Patient encounter procedure ON AIR TALENT-Xiomara Strange ON AIR TALENT Work Phone: [facility] Work Phone: Start: 08-05-2023 End: 08-05-2023 ambulatory ON AIR TALENT-C Noemi Strange ON AIR T[employer]ENT Work Phone: [facility] Work Phone: Start: 08-05-2023 End: 08-05-2023 Patient encounter procedure ON AIR TALENT-iXomara Strange ON AIR TALENT Work Phone: [facility] Work Phone: Start: 08-03-2023 Non-patient / Non-visit ON AIR TALENT-Xiomara Strange ON AIR TALENT Work Phone: [facility] Start: 08-03-2023 End: 08-03-2023 Patient encounter procedure ON AIR TALENT-Xiomara Strange ON AIR TALENT Work Phone: [facility] Work Phone: Start: 08-03-2023 End: 08-03-2023 Patient encounter procedure ON AIR TALENT-Xiomara Strange ON AIR TALENT Work Phone: [facility] Work Phone: Start: 07-20-2023 End: 07-20-2023 Patient encounter procedure ON AIR TALENT-Xiomara Strange ON AIR TALENT Work Phone: [facility] Work Phone: Start: 07-03-2023 End: 07-03-2023 Patient encounter procedure ON AIR TALENT-C Noemi Alie ON AIR TALENT Work Phone: [facility] Work Phone: Start: 07-02-2023 End: 07-02-2023 Patient encounter procedure ON AIR TALENT-C Noemi Strange ON AIR TALENT Work Phone: [facility]atory, [facility] Start: 06-03-2023 End: 06-03-2023 Patient encounter procedure ON AIR TALENT-C Noemi Strange ON AIR TALENT Work Phone: [facility] Work Phone: Start: 05-05-2023 End: 05-05-2023 Patient encounter procedure ON AIR TALENT-C Noemi Strange ON AIR T[employer] Work Phone: [facility] Work Phone: Start: 04-24-2023 End: 04-24-2023 ambulatory ON AIR TALENT-C Noemi Strange ON AIR T[employer] Work Phone: [facility] Work Phone: Start: 04-24-2023 End: 04-24-2023 Patient encounter procedure ON AIR TALENT-C Noemi Alie ON AIR T[employer] [facility] Start: 04-03-2023 End: 04-03-2023 Patient encounter procedure ON AIR TALENT-C Noemi Alie ON AIR T[employer]ENT Work Phone: [facility] Work Phone: Start: 03-30-2023 End: 03-30-2023 ambulatory ON AIR TALENT-C Noemi Stragne ON AIR TALENT Work Phone: [facility] Work Phone: Start: 03-30-2023 End: 03-30-2023 Patient encounter procedure ON AIR TALENT-C Noemi Strange ON AIR TALENT Work Phone: [facility] Work Phone: Start: 03-05-2023 End: 03-05-2023 ambulatory ON AIR TALENT-C Noemi Strange ON AIR TALENT Work Phone: [facility] Work Phone: Start: 03-05-2023 End: 03-05-2023 Patient encounter procedure ON AIR TALENT-C Noemi Strange ON AIR TALENT Work Phone: [facility]-Laboratory, Specimen Work Phone: Start: 03-05-2023 End: 03-05-2023 Patient encounter procedure ON AIR TALENT-C Noemi Strange ON AIR TALENT Work Phone: [facility] Work Phone: Start: 02-26-2023 End: 02-26-2023 ambulatory ON AIR TALENT-C Noemi Strange ON AIR TALENT Work Phone: [facility] Work Phone: Start: 02-26-2023 End: 02-26-2023 Patient encounter procedure ON AIR TALENT-C Noemi Strange ON AIR TALENT [facility] Start: 02-24-2023 End: 02-24-2023 Patient encounter procedure ON AIR TALENT-C Noemiayush Strange ON AIR TALENT Work Phone: [facility] Start: 02-18-2023 End: 02-18-2023 ambulatory ON AIR TALENT-C Noemi Strange ON AIR TALENT Work Phone: [facility] Work Phone: Start: 02-18-2023 End: 02-18-2023 Patient encounter procedure ON AIR TALENT-C Noemi Strange ON AIR TALENT Work Phone: [facility]-Ultrasound, [facility] Work Phone: Start: 02-11-2023 End: 02-11-2023 ambulatory ON AIR TALENT-C Noemi Strange ON AIR TALENT Work Phone: [facility] Work Phone: Start: 02-11-2023 End: 02-11-2023 Patient encounter procedure ON AIR TALENT-C Noemi Alie ON AIR TALENT Work Phone: [facility], [facility] Work Phone: Start: 02-04-2023 End: 02-04-2023 ambulatory ON AIR TALENT-C Noemi Guillenitz ON AIR TALENT Work Phone: [facility] Work Phone: Start: 02-04-2023 End: 02-04-2023 Patient encounter procedure ON AIR TALENT-C Noemi Alie ON AIR TALENT Work Phone: [facility] Start: 02-02-2023 End: 02-02-2023 Patient encounter procedure ON AIR TALENT-C Noemi Alie ON AIR TALENT [facility] Start: 12-24-2022 End: 12-24-2022 ambulatory ON AIR TALENT-C Noemi Alie ON AIR TALENT Work Phone: [facility] Work Phone: Start: 12-24-2022 End: 12-24-2022 Patient encounter procedure ON AIR TALENT-C Noemi Alie ON AIR TALENT Work Phone: [facility], [facility] Start: 12-18-2022 End: 12-18-2022 Patient encounter procedure ON AIR TALENT-C Noemi Guillenitz ON AIR TALENT Work Phone: [facility] Start: 08-04-2022 Office outpatient vi sit 15 minutes Jose Lewis Work Phone: [facility] Work Phone: Start: 08-01-2022 End: 08-01-2022 Emergency department patient visit Bryce Jaquez [facility] Emergency 04 Start: 01-20-2022 Office outpatient vi sit 15 minutes Jose Lewis Work Phone: [facility] Work Phone: Start: 11-27-2021 Chart Update Jose Lewis Work Phone: [facility] Work Phone: Start: 11-26-2021 Office outpatient vi sit 15 minutes Jose Lewis Work Phone: [facility] Work Phone: Start: 06-17-2021 Patient encounter procedure Noemi Strange Work Phone: [facility] [employer] [facility] Work Phone: Start: 05-25-2021 Chart Update Noemi Strange Work Phone: [facility] Work Phone: Start: 04-23-2021 Periodic preventive med est patient 18-39 yrs Noemi Strange Work Phone: [facility] [employer] Work Phone: Start: 02-15-2021 Office outpatient vi sit 10 minutes Noemi Strange Work Phone: [facility] Work Phone: Start: 01-18-2021 Office outpatient vi sit 15 minutes Noemi Strange Work Phone: [facility] Work Phone: Start: 12-18-2020 End: 12-18-2020 Office outpatient visit 15 minutes Erma F Raedy DO Work Phone: [facility] [employer] [place] [facility] Comment on above: Temporomandibular di sorder (Primary Dx); Occipital neuralgia of right side; Intractable migraine with aura with status migrainosus Start: 11-02-2020 End: 11-02-2020 Office outpatient new 30 minutes Erma F Raedy DO Work Phone: [facility] [employer] [place] Comment on above: Temporomandibular di sorder (Primary Dx); Intractable migraine with aura with status migrainosus Start: 12-28-2017 End: 12-29-2017 Ambulatory Mateo Hall Facility:[facility] Start: 11-18-2017 [facility] Start: 11-18-2017 End: 11-18-2017 Ambulatory Mateo P Isabel Facility:[facility] Start: 11-17-2017 End: 11-18-2017 Ambulatory Mateo P Isabel Facility:[facility] Start: 11-09-2017 End: 11-10-2017 Ambulatory Mateo P Candieano Facility:[facility] Start: 11-02-2017 End: 11-03-2017 Ambulatory Clarice Najeratie Facility:[facility] Start: 10-27-2017 End: 10-27-2017 Ambulatory Clarice Donte NajeraMervin Facility:[facility] Start: 10-19-2017 End: 10-20-2017 Ambulatory Mateo Hall Facility:[facility] Start: 10-19-2017 End: 10-20-2017 Ambulatory Mateo Johanne Hall Facility:[facility] Start: 10-15-2017 End: 10-16-2017 Ambulatory Clarice Jeffries Facility:[facility] Start: 10-14-2017 End: 10-15-2017 Ambulatory Clarice Donte Luverne Facility:[facility] Start: 10-11-2017 End: 10-12-2017 Emergency department patient visit Clarice Donte NajeraLuverne Facility:[facility] Start: 09-24-2017 End: 09-25-2017 Ambulatory Clarice D Luverne Facility:[facility] Start: 09-17-2017 End: 09-18-2017 Ambulatory Clarice D Mervin Facility:[facility] Start: 09-11-2017 End: 09-12-2017 Ambulatory Clariceclaudia Najeratie Facility:[facility] Start: 09-11-2017 End: 09-12-2017 Ambulatory Clariceclaudia Najeratie Facility:[facility] Start: 02-26-2017 End: 02-27-2017 Ambulatory Mateoanton Hall Facility:[facility] Start: 01-19-2017 End: 01-20-2017 Ambulatory Mateo P Isabel Facility:[facility] Start: 01-19-2017 End: 01-20-2017 Ambulatory Mateo P Isabel Facility:[facility] Cancer cervix - scre ening done Noemi Strange Work Phone: -[facility] Work Phone: Comment on above: November 2017; Encounter for gynecological examination (general) (routine) without abnormal findings Noemi Strange Work Phone: [facility] [place] [address] [employer] Work Phone: Comment on above: November 2017; 04/23/2021; DARRICK Yu 2018; Patient encounter procedure Noemi Strange Work Phone: [place] [address] [employer] Work Phone: Procedures Date Procedure Procedure Detail Performing Clinician Start: 02-14-2025 Measurement of pH in vaginal fluid specimen using nitrazine yellow for detection of rupture of amniotic membrane Noemi Strange ON AIR TALENT-C Work Phone: Comment on above: Amniotic fluid [...] after 1st trimest 07/13 gestation Pauline King APRN.CN Work Phone: Start: 12-07-2024 Antibody screen SHADE ALEXANDER Comment on above: Order Comment: Speci men Type: BLOOD SPECIMENOrdering Facility: [facility] Address: [address] [place] [address] Performed By: #### T SPN, ABORH ####CC MAIN BLOOD BANKCLIA [id number] [place] [address] [place] Start: 07-28-2024 Antibody screen Jesus barragan Comment on above: Performed By: #### L [id number], [id number], [id number], [id number], [id number], BTS, BtABORH, [id number], [id number], [id number] #### [facility] [address] [place], [address] Start: 09-21-2023 Ultrasonography for biophysical profile without non-stress testing ON AIR TALENT-Xiomara Strange ON AIR TALENT Work Phone: Start: 09-08-2023 Group B Streptococcu s Culture ON AIR TALENT-Xiomara Strange ON AIR TALENT Work Phone: Start: 08-03-2023 Ultrasonography for biophysical profile without non-stress testing ON AIR TALENT-Xiomara Strange ON AIR TALENT Work Phone: Start: 03-05-2023 Urine culture ON AIR TALENT-C Alannah Strange ON AIR TALENT Work Phone: Start: 02-18-2023 Transvaginal obstetr ic ultrasonography ON AIR TALENT-Xiomara Strange ON AIR TALENT Work Phone: Start: 02-11-2023 Transvaginal obstetr ic ultrasonography ON AIR TALENT-Xiomara Strange ON AIR TALENT Work Phone: Start: 12-24-2022 Pelvic echography ON AIR TALENT-Xiomara Strange ON AIR TALENT Work Phone: Start: 08-01-2022 End: 08-01-2022 EKG impression Bryce Somple Insertion of intraut erine contraceptive device Noemi Strange Work Phone: Comment on above: 11/2017; Repair of middle ear Noemi Strange Work Phone: Tonsillectomy and adenoidectomy Noemi Strange Work Phone: Comment on above: 2004; Plan of Treatment Date Care Activity Detail Author Start: 10-22-2063 RSV Vaccine (1 - 1-d ose 75+ series) RSV Vaccine (1 - 1-dose 75+ series) [facility] Start: 12-07-2034 Urine microalbumin profile DTaP,Tdap,Td Vaccine (10 - Td or Tdap) [facility] Start: 07-20-2033 Urine microalbumin profile DTaP,Tdap,Td Vaccine (9 - Td or Tdap) [facility] Start: 03-13-2025 Influenza vaccination Influenza Vacc ine (#1) [facility] Start: 02-16-2025 Nonstress test [facility] Start: 02-16-2025 Obstetric monitoring [facility] Start: 02-16-2025 Vital signs measurements [facility] Start: 02-16-2025 [facility] Start: 02-16-2025 End: 02-16-2025 Patient encounter procedure 02/16/2025 10:00 AM EDT Routine Office Visit OB/Gynecology [address] [place] [address] Lizzeth Ramos MD [address] [place] [address] OB OB/Gynecology Comment on above: OB Start: 02-16-2025 Patient discharge [facility] Start: 02-14-2025 Nonstress test [facility] Start: 02-14-2025 Obstetric monitoring [facility] Start: 02-14-2025 [facility] Start: 02-14-2025 Vital signs measurements [facility] Start: 02-14-2025 Patient discharge [facility] Start: 02-10-2025 End: 02-10-2025 Patient encounter procedure 02/10/2025 9:10 AM EDT Routine Office Visit OB/Gynecology [address] [place] [address] Chanda Huffman MD [address] [place] [address] OB OB/Gynecology Comment on above: OB Start: 02-01-2025 End: 02-01-2025 Patient encounter procedure 02/01/2025 1:50 PM EDT Routine Office Visit OB/Gynecology [address] [place] [address] Shade Alexander MD [address] [place] [address] OB OB/Gynecology Comment on above: OB Start: 01-27-2025 End: 01-27-2025 Patient encounter procedure 01/27/2025 10:40 AM EDT Routine Office Visit OB/Gynecology [address] [place] [address] Lizzeth Ramos MD [address] [place] [address] ob OB/Gynecology Comment on above: ob Start: 01-18-2025 End: 01-18-2025 Patient encounter procedure 01/18/2025 10:30 AM EDT Routine Office Visit OB/Gynecology [address] [place] [address] Lizzeth Ramos MD [address] [place] [address] OB OB/Gynecology Comment on above: OB Start: 01-12-2025 End: 01-12-2025 Patient encounter procedure 01/12/2025 11:00 AM EDT Routine Office Visit Maternal Medicine [address] [place] [address] anatomy us [facility]aternal [facility] Comment on above: anatomy us Start: 01-04-2025 End: 01-04-2026 OBSTETRIC ULTRASOUND WHI OBSTETRIC ULTRASOUND WHI Anc Imaging Routine Encounter for supervision of high risk multigravida of advanced maternal age, antepartum (HCC) 32 weeks gestation of (HCC) Uterine size-date discrepancy, third trimester (HCC) Expected: 01/04/2025, Expires: 01/04/2026 [facility] Work Phone: Comment on above: Expected: 01/04/2025 , Expires: 01/04/2026 Start: 01-04-2025 End: 01-04-2025 Patient encounter procedure 01/04/2025 1:30 PM EDT Routine Office Visit OB/Gynecology [address] [place] [address] Lizzeth Ramos MD [address] [place] [address] OB OB/Gynecology Comment on above: OB Start: 12-21-2024 End: 12-21-2024 Patient encounter procedure 12/21/2024 1:40 PM EDT Routine Office Visit OB/Gynecology [address] [place] [address] Lizzeth Ramos MD [address] [place] [address] OB OB/Gynecology Comment on above: OB Start: 12-07-2024 End: 12-07-2024 Patient encounter procedure OB/Gynecology Comment on above: OB OB - [facility] u/s from 12/01 in care everywhere Start: 12-07-2024 End: 12-07-2024 ambulatory 12/07/2024 12:45 PM EDT Results Only Javid Christensenwn [facility] [address] [place] [address] Javid Vermillion [facility] Start: 11-16-2024 End: 02-15-2025 ANEMIA REFLEX PANEL ANEMIA REFLEX PANEL Lab Routine History of vacuum extraction assisted delivery Low lying placenta nos or without hemorrhage, second trimester (HCC) Obesity affecting in second trimester, unspecified obesity type ([facility]) Multigravida of advanced maternal age in second trimester (HCC) Rh negative state in antepartum period (HCC) Major depressive disorder with current active episode, unspecified depression episode severity, unspecified whether recurrent Expected: 11/16/2024, Expires: 02/15/2025 [facility] Comment on above: Expected: 11/16/2024 , Expires: [...] for diabetes mellitus Expected: 11/16/2024, Expires: 11/16/2025 [facility] Work Phone: Comment on above: Expected: 11/16/2024 [...] unspecified whether recurrent Expected: 11/16/2024, Expires: 11/16/2025 [facility] Comment on above: Expected: 11/16/2024 , Expires: [...] for diabetes mellitus Expected: 11/16/2024, Expires: 02/15/2025 [facility] Comment on above: Expected: 11/16/2024 , Expires: 02/15/2025 Start: 03-13-2024 Covid-19 Vaccine () Covid-19 Vaccine () [facility] Start: 11-05-2023 Liquid based cervica l cytology screening [facility] Start: 09-27-2023 Patient discharge [facility] Start: 09-27-2023 Procedure related to [facility] Start: 09-26-2023 Consultation [facility] Start: 09-25-2023 Documentation procedure [facility] Start: 09-25-2023 Administration of bl ood product [facility] Start: 09-25-2023 Administration of medication [facility] Start: 09-25-2023 Application of ice collar, cap or bag [facility] Start: 09-25-2023 Catheterization of vein [facility] Start: 09-25-2023 Introduction of urin juan catheter [facility] Start: 09-25-2023 Measuring intake and output [facility] Start: 09-25-2023 Notification of physician [facility] Start: 09-25-2023 Procedure discontinued [facility] Start: 09-25-2023 Provision of activit y privileges [facility] Start: 09-25-2023 Vital signs measurements [facility] Start: 09-25-2023 End: 09-25-2023 [facility] Start: 09-25-2023 [facility] Start: 09-25-2023 Notification of physician [facility] Start: 09-25-2023 [facility] Start: 09-24-2023 Notification of physician [facility] Start: 09-24-2023 [facility] Start: 09-24-2023 acoustic stimulation test [facility] Start: 09-24-2023 Intrauterine catheterization [facility] Start: 09-24-2023 End: 09-24-2023 [facility] Start: 09-24-2023 Admission procedure [facility] Start: 09-24-2023 Anesthesia consultation [facility] Start: 09-24-2023 Application of intermittent pneumatic compression device [facility] Start: 09-24-2023 Insertion of cathete r into peripheral vein [facility] Start: 09-24-2023 Introduction of urin juan catheter [facility] Start: 09-24-2023 Obstetric monitoring [facility] Start: 09-24-2023 Provision of activit y privileges [facility] Start: 09-24-2023 Vital signs measurements [facility] Start: 09-24-2023 Nonstress test [facility] Start: 09-24-2023 Obstetric monitoring [facility] Start: 09-24-2023 Vital signs measurements [facility] Start: 09-24-2023 [facility] Start: 09-21-2023 Patient discharge [facility] Start: 08-05-2023 Thiamine measurement [facility] Start: 08-05-2023 Vitamin D, 1,25-dihy droxy measurement [facility] Start: 08-03-2023 Nonstress test [facility] Start: 08-03-2023 Obstetric monitoring [facility] Start: 08-03-2023 Vital signs measurements [facility] Start: 08-03-2023 [facility] Start: 08-03-2023 Iv infusion hydratio n initial 31 min-1 hour [facility] Start: 08-03-2023 Catheterization of vein [facility] Start: 08-03-2023 Patient discharge [facility] Start: 04-24-2023 Iv infusion therapy/prophylaxis /dx 1st to 1 hr [facility]ER[facility] Start: 04-24-2023 Therapeutic injectio n iv push each new drug TX/PRO/DX INJ NEW DRUG [facility] Start: 01-26-2023 EPV, Provider: Jose Lewis, Status: Pen, Time: 8:15 AM EPV, Provider: Jose Lewis, Status: Pen, Time: 8:15 AM [facility] Work Phone: Start: 01-26-2023 Patient encounter procedure [facility] Start: 01-20-2022 EPV, Provider: Jose Lewis, Status: Pen, Time: 8:45 AM EPV, Provider: Jose Lewis, Status: Pen, Time: 8:45 AM [facility] Work Phone: Start: 01-20-2022 EPV, Provider: Gema Ponce, Status: Pen, Time: 8:30 AM EPV, Provider: Gema Ponce, Status: Pen, Time: 8:30 AM [facility] Work Phone: Start: 12-06-2021 IUDRMVL, Provider: Richardson Guo, Status: Pen, Time: 11:00 AM IUDRMVL, Provider: Richardson Guo, Status: Pen, Time: 11:[address] Work Phone: Start: 04-23-2021 Patient encounter procedure ANNUAL, Provider: Richardson Guo, Status: Pen, Time: 9:45 AM [facility] Work Phone: Start: 04-19-2021 End: 04-19-2021 Patient encounter procedure 04/19/2021 Office Visit Neurology Erma Haskins, DO [address], [place] [id number] [facility] Start: 03-13-2021 Influenza vaccination INFLUENZ A VACCINE (Season Ended) [facility] Start: 12-18-2020 End: 12-18-2020 Patient encounter procedure 12/18/2020 Office Visit Neurology Erma Haskins, DO [address] [place] [address] [phone] [facility] Start: 2009 Screening for malign ant neoplasm of cervix [facility] Start: 10-22-2007 Third diphtheria, te tanus and acellular pertussis (DTaP) vaccination TDAP (ADULT) [facility] Start: 2006 Anxiety Screening Anxiety Screening [facility] Start: 2006 [facility] Start: 2006 Hepatitis C screening Hepatitis C Sc tiffanie [facility] Start: 2006 HIV screening HIV Screening [facility] Start: 2006 Tetanus vaccination TETANUS [facility] Start: 2004 COVID-19 VACCINE (1) COVID-19 VACCIN E (1) [facility] Start: 10-22-2003 HIV screening HIV SCREENING DISCUSSION [facility] Start: 2001 HIV screening HIV SCREENING DISCUSSION [facility] Start: 1988 Hepatitis C antibody , confirmatory test HEPATITIS C VIRUS SCREENING [facility] CBC W Auto Different ial panel - Blood [facility] Glucose [Mass/volume ] in Serum or Plasma --1 hour post 50 g glucose PO [facility] Measurement of gluco se 2 hours after glucose challenge for glucose tolerance test [facility] Path report.final Dx Spec Wo [facility] Patient Education [facility] Work Phone: Patient referral [facility] Work Phone: ROUTINE, GR OUP B STREPTOCOCCUS BY PCR ROUTINE, GROUP B STREPTOCOCCUS BY PCR Microbiology Routine Encounter for supervision of high risk multigravida of advanced maternal age, antepartum (HCC) 36 weeks gestation of ([facility]) 01/27/2025 11:[address] [facility] Work Phone: Serologic test for syphilis [facility] URINE OB DIP B/O URINE OB DIP B/ O Lab Routine 34 weeks gestation of ([facility]) Encounter for supervision of high risk multigravida of advanced maternal age, antepartum ([facility]) History of vacuum extraction assisted delivery Ordered: 01/12/2025 [facility] Work Phone: Comment on above: Ordered: 01/12/2025 [facility] Immunizations Immunization Date Immunization Notes Care Provider Flora abarca 12-07-2024 tetanus toxoid, redu efren diphtheria toxoid, and acellular pertussis vaccine, adsorbed Shade Alexander MD Work Phone: [facility] 05-16-2024 influenza, seasonal, injectable, preservative free Shade Alexander MD Work Phone: [facility] 05-16-2024 influenza virus vacc ine, unspecified formulation Prabha Quevedo APRN.CNM Work Phone: [facility] 07-20-2023 tetanus toxoid, redu efren diphtheria toxoid, and acellular pertussis vaccine, adsorbed ON AIR TALENT-C Noemi Strange ON AIR TALENT Work Phone: [facility] 04-03-2023 influenza, injectabl e, quadrivalent, preservative free ON AIR TALENT-C Noemi Strange ON AIR TALENT Work Phone: [facility] 05-14-2021 influenza, injectabl e, quadrivalent, preservative free Shade Alexander MD Work Phone: [facility] 10-26-2020 Pfizer-BioNTech COVI D-19 Vacc 30 MCG/0.3ML Intramuscular Suspension Noemi Strange Work Phone: [facility] Work Phone: 09-27-2020 Pfizer-BioNTech COVI D-19 Vacc 30 MCG/0.3ML Intramuscular Suspension Noemi Strange Work Phone: [facility] Work Phone: Comment on above: Series: 05-26-2020 influenza, injectabl e, quadrivalent, preservative free Noemi Strange Work Phone: [facility] Work Phone: 04-07-2019 influenza, injectabl e, quadrivalent, preservative free Noemi L Alie Work Phone: [facility] Work Phone: 10-04-2018 tetanus toxoid, redu efren diphtheria toxoid, and acellular pertussis vaccine, adsorbed Noemi Strange Work Phone: [facility] Work Phone: 05-16-2018 influenza, injectabl e, quadrivalent, preservative free Noemi L Alie Work Phone: [facility] Work Phone: 04-04-2017 influenza, injectabl e, quadrivalent, preservative free Noemi Strange Work Phone: [facility] Work Phone: 03-16-2016 influenza, injectabl e, quadrivalent, preservative free Noemi L Alie Work Phone: [facility] Work Phone: 05-28-2009 novel influenza-H1N1 -09, preservative-free, injectable Noemi Strange Work Phone: [facility] Work Phone: 10-02-2006 meningococcal polysaccharide vaccine (MPSV4) Noemi Strange Work Phone: [facility] Work Phone: 10-02-2006 tetanus toxoid, redu efren diphtheria toxoid, and acellular pertussis vaccine, adsorbed Noemi Strange Work Phone: [facility] Work Phone: 05-19-2001 hepatitis B vaccine, pediatric or pediatric/adolescent dosage Noemi Strange Work Phone: [facility] Work Phone: 11-11-2000 hepatitis B vaccine, pediatric or pediatric/adolescent dosage Noemi Strange Work Phone: [facility] Work Phone: 10-06-2000 hepatitis B vaccine, pediatric or pediatric/adolescent dosage Noemi Strange Work Phone: [facility] Work Phone: 10-06-2000 measles, mumps and rubella virus vaccine Noemi Strange Work Phone: [facility] Work Phone: 12-05-1993 diphtheria, tetanus toxoids and acellular pertussis vaccine, unspecified formulation Noemi Strange Work Phone: [facility] Work Phone: 12-05-1993 poliovirus vaccine, inactivated Noemi Strange Work Phone: [facility] Work Phone: 05-19-1990 diphtheria, tetanus toxoids and acellular pertussis vaccine, unspecified formulation Noemi Strange Work Phone: [facility] Work Phone: 05-19-1990 poliovirus vaccine, inactivated Noemi Strange Work Phone: [facility] Work Phone: 02-10-1990 haemophilus influenz ae type b vaccine, conjugate unspecified formulation Noemi Strange Work Phone: [facility] Work Phone: 02-10-1990 measles, mumps and rubella virus vaccine Noemi Strange Work Phone: [facility] Work Phone: 04-22-1989 diphtheria, tetanus toxoids and pertussis vaccine Noemi Strange Work Phone: [facility] Work Phone: 02-26-1989 diphtheria, tetanus toxoids and pertussis vaccine Noemi Strange Work Phone: [facility] Work Phone: 02-26-1989 poliovirus vaccine, inactivated Noemi Strange Work Phone: [facility] Work Phone: 1990 diphtheria, tetanus toxoids and pertussis vaccine Noemi Strange Work Phone: [facility] Work Phone: 1988 poliovirus vaccine, inactivated Noemi Strange Work Phone: [facility] Work Phone: Payers Date Payer Category Payer Self-pay 2023 Unknown [id number] 2020 Private Health Insurance [employer] A ETNA [id number] 2020-Present [id number] 2017 Private Health Insurance [id number] 2017 Private Health Insurance 1988 Unknown [id number] 9 1988 Unknown [id number] 9 Unknown Unknown [id number] Unknown [id number] 2 Unknown [id number] 2 Unknown [id number] 2 Unknown [id number] 2 Unknown [id number] [id number] 2 Unknown [id number] [id number] 2 Unknown [id number] [id number] 2 Unknown [id number] [id number] 2 Unknown [id number] [id number] 2 Unknown [id number] 2 Social History Date Type Detail [facility] Start: 1990 Sex Assigned At Not on file A [facility] Exposure to SARS-CoV -2 (event) Not sure [facility] Start: 11-16-2024 End: 12-07-2024 Never smoker Never smoker [facility] Work Phone: Comment on above: Noman Prado in [place]. 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 Start: 11-15-2024 Tobacco use and exposure Smokeless tobacco non-user [facility] Start: 11-16-2024 End: 01-27-2025 Alcoholic beverage intake Current non-drinker of alcohol (finding) [facility] Start: 11-16-2024 End: 12-07-[address] [facility] Start: 11-15-[address] [facility] Start: 06-02-2024 [facility] Start: 11-15-2024 Gender identity Identifies as female gender (finding) [facility] Start: 11-15-2024 Sexual orientation Heterosexual (fin ding) [facility] National Score (1-10 0), lower number is lower risk 51 [facility] Goals Date Patient Goal Desired Activity /State [...] in 6 weeks. Patient will have normal shinto of shoulder AROM/PROM and strength of the shoulder and scapular musculature to improve patient s ability use UE without symptoms in 6 weeks. Mental Status Date Assessment Result Facility 04-24-2023 Cognitive function Voice/Name [facility] Work Phone: Clinical Notes 09-13-2009 to 02-15-2025 Quick Notes - Chanda Huffman MD - 02/10/2025 9:13 AM EDTPrenatal Quick Notes - Chanda Huffman MD - 02/10/2025 9:13 AM EDTPatient InstructionsPatient Instructions Note Date & Type Note Facility 02-15-2025 Note HNO ID: [id number] Author: PRABHA QUEVEDO APRN.SUZANNE Service: ? Author Type: Boiler Tube Reamer Type: Progress Notes Filed: 02/15/2025 15:35 Note Text: NST SUMMARY PROVIDER ASSESSMENT AND INTERPRETATION Anahy Escalante is a 34 year old female, , who is at 38w6d with an RICHARD of 02/23/2025, by Last Menstrual Period dating method. Indications for NST: Decreased Movement Baseline: 130 Variability: Moderate Accelerations: Present 15 X 15 Decelerations: None Contractions: TOCO: Irregular Interpretation: Reactive SIGNATURE: Prabha Quevedo APRN.CNM [facility] 02-10-2025 Progress note Formatting of t his [...] risk multigravida of advanced maternal age, antepartum ([facility]) Orders: URINE OB DIP B/O History of vacuum extraction assisted delivery Orders: URINE OB DIP B/O Multigravida of advanced maternal age in third trimester ([facility]) Reviewed Elective IOL 39+ - declines at this time Orders: URINE OB DIP B/O Uterine size-date discrepancy, third trimester ([facility]) AGA per growth on 01/12/25 Orders: URINE OB DIP B/O 38 weeks gestation of ([facility]) Kick counts and labor reviewed RTO weekly Orders: URINE OB DIP B/O Chanda Lilly MD [facility] 02-10-2025 Miscellaneous Notes DM-Pt doing well. Denies vaginal Bleeding, Leaking fluid, or regular Contractions. Pt reports good movement Physical Exam: Gen: female in no apparent distress Abd: soft, Gravid. Non tender to palpation. See flow sheet @ 38.1 weeks Assessment & Plan Encounter for supervision of high risk multigravida of advanced maternal age, antepartum (HCC) Orders: URINE OB DIP B/O History of vacuum extraction assisted delivery Orders: URINE OB DIP B/O Multigravida of advanced maternal age in third trimester ([facility]) Reviewed Elective IOL 39+ - declines at this time Orders: URINE OB DIP B/O Uterine size-date discrepancy, third trimester ([facility]) AGA per growth on 01/12/25 Orders: URINE OB DIP B/O 38 weeks gestation of ([facility]) Kick counts and labor reviewed RTO weekly Orders: URINE OB DIP B/O Chanda Lilly MD documented in this encounter [facility] 02-10-2025 Instructions Morteza Gifford LPN - 02/10/2025 8:57 AM EDT SEQUENTIAL SCREENINGS The [facility] offers sequential screenings for women who are [...] It will require an appointment with our pharmaceutical laboratory technician. This is not an ultrasound performed [...] the above symptoms, contact our office at [phone] and ask to speak with a nurse. After hours, you can call doctors registry at [phone] OR call [facility] at [phone] and ask to have the doctor director instructional material paged. If you consider this an emergency, dial 03-13- or go to your nearest emergency department. NEED HELP? Are you dealing with a violent or abusive relationship? Are you a victim of rape or sexual assult? Call [facility] ([place]) 24 hour Crisis Hotline: 520.517.6344 or 223-456-1833. MANUAL Your Guide to a Healthy manual is now on-line. Visit [email or web address] to download your free copy documented in this encounter [facility] 02-10-2025 Note HNO ID: [id number] Author: SVITLANA FAIRCHILD, ? Service: ? Author Type: Patient Fruit Room Hand Type: Progress Notes Filed: 02/10/2025 08:47 Note Text: POPULATION HEALTH NAVIGATION OUTREACH Action/FYI 3rd attempt left message to add construction tech to ob provider field Reason for Outreach Medicaid OB/Peds Care Gaps due: N/A Patient Contacted: Unable or unnecessary to reach patient: Unable to reach patient Left message Navigation Signature: Svitlana Fairchild Population Health Naviggabrielle February 10, 2025 8:46 AM [facility] 02-09-2025 Note HNO ID: [id number] Author: SVITLANA FAIRCHILD, ? Service: ? Author Type: Patient Fruit Room Hand Type: Progress Notes Filed: 02/09/2025 08:14 Note Text: POPULATION HEALTH NAVIGATION OUTREACH Action/FYI Left message to add construction tech to OB provider field, My chart sent Reason for Outreach Medicaid OB/Peds Care Gaps due: N/A Patient Contacted: Unable or unnecessary to reach patient: Unable to reach patient Left message Crossbeam Systemshart message sent Navigation Signature: Svitlana Fairchild Population Health Naviggabrielle February 09, 2025 8:13 AM [facility] 02-09-2025 History of Presen t illness Narrative POPULATION HEALTH NAVIGATION OUTREACH Action/FYI Left message to add construction tech to OB provider field, My chart sent Reason for Outreach Medicaid OB/Peds Care Gaps due: N/A Patient Contacted: Unable or unnecessary to reach patient: Unable to reach patient Left message MyChart message sent Navigation Signature: Svitlana Fairchild Population Health Naviggabrielle February 09, 2025 8:13 AM documented in this encounter [facility] 02-09-2025 Note Patient Outreach (SIMON TNAV) ANAHY ESCALANTE ([id number]) 1990 F Date Time Provider Department 02/09/25 SVITLANA FAIRCHILD During your visit today, we recorded the following information about you: Svitlana Fairchild 02/09/2025 8:14 AM Signed POPULATION HEALTH NAVIGATION OUTREACH Action/FYI Left message to add construction tech to OB provider field, My chart sent Reason for Outreach Medicaid OB/Peds Care Gaps due: N/A Patient Contacted: Unable or unnecessary to reach patient: Unable to reach patient Left message MyChart message sent Navigation Signature: Svitlana Fairchild Population Health Navigator February 09, 2025 8:13 AM Svitlana Fairchild 02/10/2025 8:47 AM Signed POPULATION HEALTH NAVIGATION OUTREACH Action/FYI 3rd attempt left message to add construction tech to ob provider field Reason for Outreach [...] [facility] infection [Z87.68[facility] Elevated glucose [R73.09] 12/08/2024 Encounter Status:Closed by SVITLANA FAIRCHILD on 02/09/25 [facility] 02-01-2025 Note HNO ID: [id number] Author: SHADE ALEXANDER MD Service: ? Author [...] Irregular Interpretation: Reactive SIGNATURE: Shade Alexander MD [facility] 02-01-2025 History of Presen t illness Narrative [...] Shade Alexander MD documented in this encounter [facility] 02-01-2025 Progress note Formatting of t his [...] single or unspecified fetus (HCC) nst and kick counts reviewed Shade Alexander M.D. [facility] 02-01-2025 Miscellaneous Notes RR- VB No. LOF [...] Shade Alexander M.D. documented in this encounter [facility] 02-01-2025 Instructions Eugenio Dennis LPN - 02/01/2025 1:38 PM EDT SEQUENTIAL SCREENINGS The [facility] offers sequential screenings for women who are [...] It will require an appointment with our pharmaceutical laboratory technician. This is not an ultrasound performed [...] the above symptoms, contact our office at [phone] and ask to speak with a nurse. After hours, you can call doctors registry at [phone] OR call [facility] at [phone] and ask to have the doctor director instructional material paged. If you consider this an emergency, dial 9-5-5 or go to your nearest emergency department. NEED HELP? Are you dealing with a violent or abusive relationship? Are you a victim of rape or sexual assult? Call [facility] ([place]) 24 hour Crisis Hotline: 820.421.6450 or 142-806-7908. MANUAL Your Guide to a Healthy manual is now on-line. Visit [email or web address] [place] to download your free copy documented in this encounter [facility] 01-27-2025 Progress note Formatting of t his [...] of advanced maternal age in third trimester ([facility]) - ICD9: 659.63, ICD10: O09.523 - URINE OB DIP B/O 4. Uterine size-date discrepancy, third trimester ([facility]) - ICD9: 649.63, ICD10: O26.843 - URINE OB DIP B/O 5. Major depressive disorder with current active episode, unspecified depression episode severity, unspecified whether recurrent - ICD9: 296.30, ICD10: F32.9 - URINE OB DIP B/O 6. 36 weeks gestation of ([facility]) - ICD9: V22.2, ICD10: Z3A.36 - URINE OB DIP B/O - ROUTINE, GROUP B STREPTOCOCCUS BY PCR Lizzeth Ramos MD [facility] 01-27-2025 Miscellaneous Notes S: Anahy Escalante is [...] risk multigravida of advanced maternal age, antepartum ([facility]) - ICD9: V23.82, ICD10: O09.529 (primary diagnosis) - URINE OB DIP B/O - ROUTINE, GROUP B STREPTOCOCCUS BY PCR 2. History of vacuum extraction assisted delivery - ICD9: V13.29, ICD10: Z87.59 - URINE OB DIP B/O 3. Multigravida of advanced maternal age in third trimester ([facility]) - ICD9: 659.63, ICD10: O09.523 - URINE [...] Lizzeth Ramos MD documented in this encounter [facility] 01-27-2025 Instructions Moni Zamora MA - 01/27/2025 10:49 AM EDT SEQUENTIAL SCREENINGS The [facility] offers sequential screenings for women who are [...] It will require an appointment with our pharmaceutical laboratory technician. This is not an ultrasound performed [...] the above symptoms, contact our office at [phone] and ask to speak with a nurse. After hours, you can call [employer] registry at [phone] OR call [facility] at [phone] and ask to have the doctor director instructional material paged. If you consider this an emergency, dial 9-1-1 or go to your nearest emergency department. NEED HELP? Are you dealing with a violent or abusive relationship? Are you a victim of rape or sexual assult? Call [facility] ([place]) 24 hour Crisis Hotline: 561.389.2592 or 229-575-8733. MANUAL Your Guide to a Healthy manual is now on-line. Visit [email or web address] to download your free copy documented in this encounter [facility] 01-12-2025 Note HNO ID: [id number] Author: EUGENIO DENNIS LPN Service: ? Author Type: LICENSED NURSE Type: Progress Notes Filed: 01/12/2025 12:16 Note Text: Manual blood pressure onset visit 126/84 ANTHONY BP average 123/75 Anthony BP #01 - 124/77 pulse 98 oxygen 95 #02 - 111/74 pulse 90 oxygen 95 #03 - 114/75 pulse 92 oxygen 98 #04 - 110/71 pulse 93 oxygen 96 Eugenio Dennis LPN [facility] 01-12-2025 History of Presen t illness Narrative Manual blood pressure onset visit 126/84 ANTHONY BP average 123/75 Anthony BP #01 - 124/77 pulse 98 oxygen 95 #02 - 111/74 pulse 90 oxygen 95 #03 - 114/75 pulse 92 oxygen 98 #04 - 110/71 pulse 93 oxygen 96 Eugenio Dennis LPN documented in this encounter [facility] 01-12-2025 Progress note Formatting of t his [...] GBS- educated on process Prabha Quevedo APRN.CNM [facility] 01-12-2025 Miscellaneous Notes S: Anahy Escalante is [...] Prabha Quevedo APRN.CNM documented in this encounter [facility] 01-12-2025 Instructions Eugenio Dennis LPN - 01/12/2025 10:43 AM EDT SEQUENTIAL SCREENINGS The [facility] offers sequential screenings for women who are [...] It will require an appointment with our pharmaceutical laboratory technician. This is not an ultrasound performed [...] the above symptoms, contact our office at [phone] and ask to speak with a nurse. After hours, you can call doctors registry at [phone] OR call [facility] at [phone] and ask to have the doctor director instructional material paged. If you consider this an emergency, dial 1-9-9 or go to your nearest emergency department. NEED HELP? Are you dealing with a violent or abusive relationship? Are you a victim of rape or sexual assult? Call [facility] [place] [facility] 24 hour Crisis Hotline: 754.672.1382 or 642-504-5922. MANUAL Your Guide to a Healthy manual is now on-line. Visit [email or web address] to download your free copy documented in this encounter [facility] 01-04-2025 Progress note Formatting of t his note might be different from the original. DRAKE-S: Aanhy Escalante is a 34 year old female [...] RTO in 2 weeks Pauline King APRN.CNM [facility] 01-04-2025 Miscellaneous Notes DRAKE-S: Anahy Escalante is [...] Pauline King APRN.CNM documented in this encounter [facility] 01-04-2025 Instructions Shayna Leger MA - 01/04/2025 1:30 PM EDT SEQUENTIAL SCREENINGS The [facility] offers sequential screenings for women who are [...] It will require an appointment with our pharmaceutical laboratory technician. This is not an ultrasound performed [...] the above symptoms, contact our office at [phone] and ask to speak with a nurse. After hours, you can call doctors registry at [phone] OR call [facility] at [phone] and ask to have the doctor director instructional material paged. If you consider this an emergency, dial 9-3-4 or go to your nearest emergency department. NEED HELP? Are you dealing with a violent or abusive relationship? Are you a victim of rape or sexual assult? Call [facility] ([place]) 24 hour Crisis Hotline: 454.429.4991 or 850-610-6193. MANUAL Your Guide to a Healthy manual is now on-line. Visit [email or web address] [place] to download your free copy documented in this encounter [facility] 12-21-2024 Progress note Formatting of t his [...] whether recurrent - ICD9: 296.30, ICD10: F32.9 stable Lizzeth Ramos MD [facility] 12-21-2024 Miscellaneous Notes S: Anahy Escalante is [...] whether recurrent - ICD9: 296.30, ICD10: F32.9 stable Lizzeth Ramos MD documented in this encounter [facility] 12-21-2024 Instructions Morteza Gifford MA - 12/21/2024 1:22 PM EDT SEQUENTIAL SCREENINGS The [facility] offers sequential screenings for women who are [...] It will require an appointment with our pharmaceutical laboratory technician. This is not an ultrasound performed [...] the above symptoms, contact our office at [phone] and ask to speak with a nurse. After hours, you can call doctors registry at [phone] OR call [facility] at [phone] and ask to have the doctor director instructional material paged. If you consider this an emergency, dial 9-1-1 or go to your nearest emergency department. NEED HELP? Are you dealing with a violent or abusive relationship? Are you a victim of rape or sexual assult? Call [facility] ([facility] 24 hour Crisis Hotline: 591.540.2359 or 522-085-3183. MANUAL Your Guide to a Healthy manual is now on-line. Visit [email or web address] to download your free copy documented in this encounter [facility] 12-07-2024 Progress note Formatting of t his [...] f/u in 2 weeks Shade Alexander M.D. [facility] 12-07-2024 Miscellaneous Notes RR- VB No. LOF [...] Shade Alexander M.D. documented in this encounter [facility] 12-07-2024 Note HNO ID: [id number] Author: SUZANNE BOWMAN MA Service: ? Author Type: Circulation Man Type: Progress Notes Filed: 12/07/2024 14:05 Note [...] ear infection. afebrile Patient denies history of Guillain-Bethpage Syndrome (a severe paralytic illness): Yes Tdap Adacel injection was given without incident. See immunizations for details of immunizations administered today. VIS sheet provided: Yes Provider Shade Alexander MD was present in office at time of injection. [facility] 12-07-2024 History of Presen t illness Narrative [...] ear infection. afebrile Patient denies history of Guillain-Bethpage Syndrome (a severe paralytic illness): Yes Tdap Adacel injection was given without incident. See immunizations for details of immunizations administered today. VIS sheet provided: Yes Provider Shade Alexander MD was present in office at time of injection. documented in this encounter [facility] 12-07-2024 Instructions Morteza Gifford MA - 12/07/2024 1:07 PM EDT SEQUENTIAL SCREENINGS The [facility] offers sequential screenings for women who are [...] It will require an appointment with our pharmaceutical laboratory technician. This is not an ultrasound performed [...] the above symptoms, contact our office at [phone] and ask to speak with a nurse. After hours, you can call doctors registry at [phone] OR call [facility] at [phone] and ask to have the doctor director instructional material paged. If you consider this an emergency, dial 1-6-2 or go to your nearest emergency department. NEED HELP? Are you dealing with a violent or abusive relationship? Are you a victim of rape or sexual assult? Call [facility] ([place]) 24 hour Crisis Hotline: 486.274.3460 or 279-455-6186. MANUAL Your Guide to a Healthy manual is now on-line. Visit [email or web address] to download your free copy documented in this encounter [facility] 12-07-2024 Note HNO ID: [id number] Author: PAULINE NORWOOD APRN.PREPAROLE COUNSELING AIDE Service: ? Author Type: Nurse Practitioner Type: Progress Notes Filed: 12/07/2024 07:47 Note Text: [facility] Subjective Anahy Escalante is a 34 [...] Judgment normal. {1. 28 weeks gestation of (HCC) (Z3A.28) - Currently 28 weeks gestation, second [...] right side, co (more content not included)... [facility] 12-07-2024 History of Presen t illness Narrative [facility] [employer] [facility] Subjective Anahy Escalante is a 34 year [...] Judgment normal. {1. 28 weeks gestation of ([facility]) (Z3A.28) - Currently 28 weeks gestation, second [...] safe during . - Prescription sent to [facility]. and Recording using [employer] software for draft documentation of the visit was discussed with the patient/authorized customer response representative; all questions welcomed and answered. Patient/authorized customer response representative agreed to proceed History and Record Review External record(s) reviewed: prior inpatient record and prior outpatient record. Disposition The patient was discharged. Procedures documented in this encounter [facility] 12-07-2024 Instructions Pauline Norwood APRN.CNP - 12/07/2024 [...] use during . documented in this encounter [facility] 11-16-2024 Progress note Formatting of t his note might be different from the original. Patient is a at 25.6 weeks gestation here for NOB. She is a transfer from [place]. Prabha Quevedo APRN.CNM [facility] 11-16-2024 Miscellaneous Notes Patient is a at 25.6 weeks gestation here for NOB. She is a transfer from [place]. Prabha Quevedo APRN.CNM documented in this encounter [facility] 11-15-2024 Note HNO ID: [id number] Author: PRABHA QUEVEDO APRN.CNM Service: ? Author Type: Boiler Tube Reamer Type: Progress Notes Filed: 11/16/2024 13:54 Note [...] the following (please check all that apply)? Boiler Tube Reamer care Social History: Do you have any [...] Stiffness RESPIRATORY: Ne (more content not included)... [facility] 11-15-2024 History of Presen t illness Narrative [...] the following (please check all that apply)? Boiler Tube Reamer care Social History: Do you have any [...] discussed with the Patient or Patient's Authorized Business Proposal Rep. As applicable, any other physician, advance practice provider, medical student, or other health professional student that will be observing or involved in the sensitive examination for educational or training purposes was discussed with the Patient or Authorized Business Proposal Rep. The Patient or Authorized Business Proposal Rep has agreed to proceed with the sensitive [...] 10. with care elsewhere in second trimester ([facility]) - ICD9: V22.1, ICD10: Z34.92 PLAN: 1) Patient oriented to practice. Discussed nutrition, folic acid supplementation, dietary guidelines, exercise, smoking, alcohol, caffeine, and drug use. Discussed how to access Your guide to a health and the Gyroscopic Instrument Tester. Reviewed midwifery and refueling rampman services that are available. 2) Screening: Hemoglobin [...] Prabha Quevedo APRN.CNM documented in this encounter [facility] 11-15-2024 Instructions Siri Womack MA - 11/15/2024 3:25 PM EDT Please select the following link to access the [facility] Your Guide to a Healthy . [email or web address] de documented in this encounter [facility] 10-20-2024 Evaluation note Diagnosis Onset Date Resolution AMA (advanced maternal age) multigravida 35+ acute October 9:19am Depression acute October 20 9:19am Low lying placenta, antepartum acute October 20, 2024 9:19am Obesity affecting acute October 20, 2024 9:19am acute October 20 9:19am Rh negative status during acute October 20 9:19am Supervision of high-risk acute October 20, 2024 9:19am [facility] Work Phone: 1(196) 166-432004-10-2025 Evaluation note* Diagnosis Onset Date Resolution Status [...] ed weeks of gestation acute February 14, 2 025 10:44am Obesity affecting acute February 14, 2025 10:44am Supervision of high-risk acute February 14, 2025 10:44am [facility] Work Phone: 1(309) 838-148903-17-2024 Discharge summary Author Lizzeth Rodriguez [facility] September 27, 2023 9:51am Note Date/Time September 27, 2023 9:4 4am [facility] Medical Records Department [address] [place] [id number] Discharge Summary 09/27/23 0938 MR#: [id number] Acct: [id number] Name: ANAHY ESCALANTE Rep #:[id number] : 1990 32 From: Lizzeth Abarca DO PCP: SPEEDY Taylor Status:ADM IN Location: [id number] Providers Date of Admission: 09/24/23 Primary Care [...] Hospital Course: The patient was admitted on 24 for induction of labor due to decelerations in the office. She delivered on 09/24/24 via vacuum assisted delivery due to exhaustion. On post day #1 she was recovering well but requiring assistance with breast feeding. On post day #2 she was tearful due to some difficulty and mild perineal pain but ready for discharge to [facility] while baby is still being monitored in [...] Up With: Lizzeth Abarca DO When: Call [phone] to make an appointment with your doctor in 6 weeks. If you had elevated blood pressure or 4th degree laceration, you will need to be seen in 2 weeks. Meaningful Use Info Meaningful Use Diagnoses (Choose all that apply): None applicable Discharge Plan Admission Admit Date/Time: 09/24/23 13:40 Attending Provider: Lizzeth Abarca Primary Care Provider: Noemi Strange NP Discharge Orders/Prescriptions Prescriptions: Continued sertraline [Zoloft] 50 mg tablet 75 mg PO DAILY PNV-DHA 27 mg iron-1 mg -300 mg capsule 1 cap PO DAILY aspirin [Adult Aspirin Regimen] 81 mg tablet,delayed release (DR/EC) 81 mg PO DAILY Referrals / Follow Up: Noemi Strange NP, ON AIR TALENT-C [Primary Care Provider] - Disposition Disposition (needs filled in before D/C Order can be placed): Home, Self Care 09/27/23 0951 <Electronically signed by Lizzeth Abarca DO> Cosigner Signature (if applicable): CC: SPEEDY Strange; Dr. Lizzeth Abarca DO~ Signed [facility] Work Phone: 1(161) 890-905303-16-2024 Progress note Author Lizzeth Rodriguez [facility] September 26, 2023 9:59am Note Date/Time September 26, 2023 9:5 9am [facility] Medical Records Department [address] [place] [address] Progress Note - OBGYN 09/26/23 0957 MR#: [id number] Acct: [id number] Name: ANAHY ESCALANTE Rep #:[id number] : 1990 32 From: Lizzeth Abarca DO PCP: ANDREA TaylorC Status:ADM IN Location: QX143-7 Subjective Subjective Patient doing well without complaints. [...] (Auto) 87.7 H, Lymph % (Auto) 6.1L, [place] % (Auto) 5.2, Eos % (Auto) 0.1, [...] Cosigner Signature (if applicable): CC: ~ Signed [facility] Work Phone: 1(645) 624-607103-16-2024 Discharge summary Author Lizzeth Rodriguez [facility] September 25, 2023 11:28pm Note Date/Time September 25, 2023 11: 28pm [facility] Medical Records Department [address] [place] [address] Instructions for Home/Discharge Instructions 09/25/232327 MR#: [id number] Acct: [id number] Name: ANAHY ESCALANTE Rep #:[id number] : [...] Up With: Lizzeth Abarca DO When: Call [phone] to make an appointment with your doctor [...] Provider: Lizzeth Abarca Primary Care Provider: Noemi Strange NP Discharge Orders/Prescriptions Prescriptions: No Action sertraline [Zoloft] 50 mg tablet 75 mg PO DAILY PNV-DHA 27 mg iron-1 mg -300 mg capsule 1 cap PO DAILY aspirin [Adult Aspirin Regimen] 81 mg tablet,delayed release (DR/EC) 81 mg PO DAILY Referrals / Follow Up: Noemi Strange NP, CINTIA-C [Primary Care Provider] - 09/25/232327<Electronically signed by Lizzeth Abarca DO>Lizzeth Abarca DO CC: ON AIR TALENT-C Noemi Strange ~ Signed [facility] Work Phone: 1(756) 680-465603-15-2024 Procedure [facility] 09-25-2023 Progress note Author Lizzeth Rodriguez [facility] September 25, 2023 5:06pm Note Date/Time September 25, 2023 5:0 6pm [facility] Medical Records Department [address] [place] [address] Progress Note - OBGYN 09/25/231703 MR#: [id number] Acct: [id number] Name: ANAHY ESCALANTE Rep #:[id number] : 1990 32 From: Lizzeth Abarca DO PCP: ANDREA TaylorC Status:ADM IN Location: [id number] Subjective Subjective pt is sitting up in bed. still very comfortable. Since my last in person visit she started having variable decelerations and an amnioinfusion was ordered. Since then the tracing is improved current tracing: FHT: Moderate variability reactive mild variable decelerations, not persistent category II tracing [place]: Q1 min- 5min Contractions cx: /-1 reviewed [...] -408.88 Lab / Micro Data 09/24/23 14:50 09/25/23 1706 <Electronically signed by Lizzeth Abarca DO> Cosigner Signature (if applicable): CC: ~ Signed [facility] Work Phone: 1(609) 490-523603-15-2024 Progress note Author Lizzeth Rodriguez [facility] September 25, 2023 1:13pm Note Date/Time September 25, 2023 12: 54pm [facility] Medical Records Department [address] [place] [address] Progress Note - OBGYN 09/25/23 1251 MR#: [id number] Acct: [id number] Name: ANAHY ESCALANTE Rep #:[id number] : 1990 32 From: Lizzeth Abarca DO PCP: ANDREA TaylorC Status:ADM IN Location: [id number] Subjective Subjective pt is comfortable with epidural. current tracing: FHT: Moderate variability reactive no current decelerations category I tracing [place]: q 2-4 min Contractions MVU 200-220 Cx: [...] % (Auto) 69.8, Lymph % (Auto) 22.7, [place] % (Auto) 5.9, Eos % (Auto) 0.8, Baso % (Auto) 0.3, Absolute Neuts (auto) 6.7, Absolute Lymphs (auto) 2.19, Nucleated RBC % 0, Syphilis Total Ab Non-reactive, Blood Type A NEGATIVE, Antibody Screen NEGATIVE 09/25/23 1313 <Electronically signed by Lizzeth Abarca DO> Cosigner Signature (if applicable): CC: ~ Signed [facility] Work Phone: 1(152) 377-788203-14-2024 History and physical note Author Ivette Cornell [facility] September 24, 2023 8:24pm Note Date/Time September 24, 2023 8:2 4pm [facility] Medical Records Department [address] [place] [address] H&P Exam - OWNER 09/24/232020 MR#: [id number] Acct: [id number] Name: ANAHY ESCALANTE Rep #:[id number] : 1990 32 From: Ivette walton MD PCP: SPEEDY Taylor Status:ADM IN [facility] - General General Date of Admission: 09/24/23 HPI Narrative ANAHY ESCALANTE, is a 32 F who presents in early labor, with decreased movement and intermittent variables. now resolving into a category I tracing. 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 Ivette Cornell MD~ Signed [facility] Work Phone: 1(144) 187-774001-20-2023 History of Present illness Narrative* Anahy is [...] and blood cultures. All tests were normal. [facility] Work Phone: 1(171) 968-969305-14-2022 History of Present illness Narrative* Anahy is [...] she has been around anyone with COVID [facility] Work Phone: 1(717) 959-513010-12-2021 NoteAccession #: [id number] Date of Procedure: 04/23/2021 Pathologist: [facility], Cytology Date Reported: 05/01/2021 Date [...] verified by the Molecular Diagnostic Laboratory at [facility]. The lab is certified under the Clinical Laboratory Amendments of 1988 (CLIA 88) as qualified to perform high complexity clinical laboratory testing. This specimen has been analyzed by the [place] [facility] ([employer] an automated imaging and review system, which assists the laboratory in evaluating cells on ThinPrep Pap tests. Following automated imaging, selected leonard from every slide were reviewed by a parquet floor layer and/or pathologist. Electronically Signed Out By [facility], Cytology//ELC By the signature on [...] Source of Specimen A: THINPREP PAP CERVICAL [facility] Department of Pathology [id number] [place], [place] [address]Kessler Institute for RehabilitationComment on above:Performed By: #### C #### [facility] Cytology [address] [place] [address] [id number] History of Present illness Narrative* Erma Haskins, DO - 12/18/2020 9:40 AM EDT Anahy Escalante [...] Family history of headache:none Duration/Location of headache:left>right confucianist- back to daily level 3 Frequency of headache:had no AMBROSE and now back severe 1-2 a week Aura: + 30 minutes Miss work/activities:++ Triggers: Nausea/Vomiting/Photo/Sono:++++ Neuro symptoms associated: OTC medication frequency: Prescribed preventive meds: PT Prescribed abortive meds:rizatriptan 10 mg Evaluation(scans):normal per patient Laboratory investigations: 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 Allelrgies: codeine sand sulfa Mirena IUD 2018- [...] Social Gatherings with Friends and Family: Attends Synagogue Services: Active Member of Clubs or Organizations: [...] months Erma Haskins DO [facility]* Patient Instructions* Erma Haskins DO - 12/18/2020 9:40 AM EDT Trial zoloft 50 mg Nurtec 75 mg try as a preventive 2 times a week Naratriptan 2.5 instead of rizatriptan 10 mg Call [facility] for MRI brain 2018 PT Magnesium 400 mg Follow up 4 months Verapamil 40 mg 1/2 tow times a day- not in [facility] History of Present illness Narrative* Erma [...] history of headache:none Duration/Location of headache: left>right confucianist Frequency of headache: Aura: fuzz across vision x 30 minutes Miss work/activities:++ Triggers: Nausea/Vomiting/Photo/Sono:++++ Neuro symptoms associated: OTC medication frequency: nothing because has been in rebound Prescribed preventive meds:none Prescribed abortive meds: none PMHx:no hx kidney stones PSHx:tubes in ears, Medications:see list Zoloft july, Mirena IUD 2017 Allergies: codeine and sulfa Social: -/- no children, 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 female presents for 3 month med check. No acute concerns. She is feeling well. * MIGRAINE HEADACHES: Rashaad Haskins, Neurologist is following care. She is currently in her 2nd round of PT at [facility] in [place] to aide in relief of occipital neuralgia. [...] exercise. She and her spouse walk daily. -[facility] Work Phone: 1(432) 586-239103-04-2010 History of Present illness Narrative* 30 y.o. female presents for 3 month med check. No acute concerns. She is feeling well. * MIGRAINE HEADACHES: Rashaad Haskins Neurologist is following care. She is currently [...] exercise. She and her spouse walk daily. [facility] Work Phone: 1(687) 928-338403-04-2010 History of Present illness Narrative* 30 y.o. [...] once every other week. BEATRIZ Turk at [place] [address] is following care. * FATIGUE: She denies feeling fatigued. 6 hours of restful sleep a night. * Her headaches prevent intense exercise. She and her spouse walk daily. [facility] Work Phone: Evaluation note* Diagnosis Temporomandibular disorder- Primary Temporomandibular joint disorders, unspecified Intractable migraine with aura with status migrainosus Migraine with aura, with intractable migraine, so stated, with status migrainosus [facility] Diagnosis Temporomandibular disorder- Primary Temporomandibular joint disorders, unspecified Occipital neuralgia of right side Intractable migraine with aura with status migrainosus Migraine with aura, with intractable migraine, so stated, with status migrainosus [facility]* Diagnosis Onset Date Resolution Status 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 [facility] Work Phone: evaluation note* Diagnosis Onset Date Resolution Status Female infertility resolved Depression acute Nausea/vomiting in acute acute Rh negative status during acute Supervision of high-risk [facility] Work Phone: evaluation note* Diagnosis Onset Date Resolution Status Depression acute Nausea/vomiting in acute acute Rh negative status during acute Supervision of high-risk acute Depression acute Nausea/vomiting in acute acute Rh negative status during acute Supervision of high-risk [facility] Work Phone: evaluation note* Diagnosis Onset Date [...] negative status during acute Supervision of high-risk [facility] Work Phone: evaluation note* Diagnosis Onset Date [...] status during acute Supervision of high-risk acute [facility] Work Phone: Evaluation note* Diagnosis Onset [...] status during acute Supervision of high-risk acute [facility] Work Phone: Evaluation note* Diagnosis Onset [...] status during acute Supervision of high-risk acute [facility] Work Phone: Evaluation note* Diagnosis Onset [...] tachycardia acute acute Supervision of high-risk acute [facility] Work Phone: Evaluation note* Diagnosis Onset [...] resolved Variable heart rate decelerations, antepartum resolved [facility] Work Phone: Evaluation note* Diagnosis Onset [...] lactating mother noneactive Chills acute Depression acute [facility] Work Phone: Evaluation note* Diagnosis Onset [...] Chills acute Depression acute Routine Follow-Up noneactive [facility] Work Phone: Evaluation note* Diagnosis History of vacuum extraction assisted delivery- Primary Other postprocedural status Low lying placenta nos or without hemorrhage, second trimester ([facility]) Obesity affecting in second trimester, unspecified obesity type ([facility]) Multigravida of advanced maternal age in second trimester ([facility]) Rh negative state in antepartum period ([facility]) Rhesus isoimmunization affecting management of mother, antepartum condition Major depressive disorder with current active episode, unspecified depression episode severity, unspecified whether recurrent Screening for diabetes mellitus Encounter for supervision of high risk multigravida of advanced maternal age, antepartum ([facility]) History of infection Personal history of problems with care elsewhere in second trimester ([facility]) [facility] Diagnosis 28 weeks gestation of ([facility])- Primary state, incidental Otalgia, right Acute otitis media, right Unspecified otitis media [facility] Diagnosis Encounter for supervision of high risk multigravida of advanced maternal age, antepartum ([facility])- Primary Need for vaccination Need for prophylactic vaccination and inoculation against unspecified single disease 28 weeks gestation of ([facility]) state, incidental * Assessment & Plan Note - Shade Alexander MD - 12/07/2024 1:45 PM EDT Associated Problem(s): Encounter for supervision of high risk multigravida of advanced maternal age, antepartum (HCC) documented in this encounter [facility] note* Diagnosis Encounter for supervision of [...] Other postprocedural status 30 weeks gestation of ([facility]) state, incidental Major depressive disorder with current active episode, unspecified depression episode severity, unspecified whether recurrent documented in this encounter [facility] note* Diagnosis Encounter for supervision of high risk multigravida of advanced maternal age, antepartum (HCC)- Primary Need for vaccination Need for prophylactic vaccination and inoculation against unspecified single disease 28 weeks gestation of (HCC) state, incidental Encounter for supervision of high risk multigravida of advanced maternal age, antepartum (HCC)- Primary 32 weeks gestation of ([facility]) state, incidental History of vacuum extraction assisted delivery Other postprocedural status Major depressive disorder with current active episode, unspecified depression episode severity, unspecified whether recurrent Uterine size-date discrepancy, third trimester (HCC) Multigravida of advanced maternal age in second trimester (HCC) documented in this encounter [facility] note* Diagnosis Encounter for supervision of [...] third trimester (HCC) documented in this encounter [facility] note* Diagnosis Encounter for supervision of high risk multigravida of advanced maternal age, antepartum (HCC)- Primary Need for vaccination Need for prophylactic vaccination and inoculation against unspecified single disease 28 weeks gestation of ([facility]) state, incidental Encounter for screening for malformation using ultrasound ([facility])- Primary Encounter for supervision of high risk multigravida of advanced maternal age, antepartum (HCC) Uterine size-date discrepancy, third trimester (HCC) 34 weeks gestation of ([facility]) state, incidental documented in this encounter [facility] note* Diagnosis Encounter for supervision of high risk multigravida of advanced maternal age, antepartum (HCC)- Primary Need for vaccination Need for prophylactic vaccination and inoculation against unspecified single disease 28 weeks gestation of ([facility]) state, incidental Encounter for supervision of high risk multigravida of advanced maternal age, antepartum ([facility])- Primary History of vacuum extraction assisted delivery Other postprocedural status Multigravida of advanced maternal age in third trimester ([facility]) Uterine size-date discrepancy, third trimester ([facility]) Major depressive disorder with current active episode, unspecified depression episode severity, unspecified whether recurrent 36 weeks gestation of ([facility]) state, incidental documented in this encounter [facility] note* Diagnosis Encounter for supervision of high risk multigravida of advanced maternal age, antepartum (HCC)- Primary Need for vaccination Need for prophylactic vaccination and inoculation against unspecified single disease 28 weeks gestation of ([facility]) state, incidental 36 weeks gestation of ([facility])- Primary state, incidental Encounter for supervision of high risk multigravida of advanced maternal age, antepartum ([facility]) Decreased movements in third trimester, single or unspecified fetus ([facility]) * Assessment & Plan Note - Shade Alexander MD - 02/01/2025 1:56 PM EDT Associated Problem(s): Encounter for supervision of high risk multigravida of advanced maternal age, antepartum ([facility]) Orders: URINE OB DIP B/O documented in this encounter [facility] note* Diagnosis Encounter for supervision of [...] unspecified fetus (HCC) [facility] Diagnosis Encounter for supervision of high [...] OB DIP B/O [facility]* Diagnosis Elevated glucose- Primary Other abnormal glucose Encounter for supervision of high risk multigravida of advanced maternal age, antepartum (HCC)- Primary History of vacuum extraction assisted delivery Other postprocedural status Multigravida of advanced maternal age in third trimester (HCC) Uterine size-date discrepancy, third trimester (HCC) 38 weeks gestation of ([facility]) state, incidental documented in this encounter [place] ClinicHistory and physical note Author Alma Rosa Peña [facility] September 21, 2023 7:32pm Note Date/Time September 21, 2023 7:3 2pm [facility] Medical Records Department [address] [place] [address] OB Triage Physician Note 09/21/231928 MR#: [id number] Acct: [id number] Name: ANAHY ESCALANTE Rep #:[id number] : 1990 32 From: Alma Rosa Peña CNM PCP: SPEEDY Taylor Status:REG CLI Y [facility] HPI - General General Date of Service: [...] placement of ear tubes History of tonsillectomy [place] teeth removed Social History adopted: No household members: spouse 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 G ood Fm. tdap, larc. 01/22/24 -?-?-?-?-?--?-?-?-?-?-?-?- 30w 6d 218 lb 112/70 Negative [...] variability reactive no decelerations category I tracing [place]: irreg Contractions Assessment and plan: Reactive NST, reassuring maternal and status patient discharged to home to follow-up in office next week and prn. See problem list details for additional plan information. Charges/Coding Procedures Urinary/Genital 52xxx-59xxx: 12121-73 non-stress test Interp 09/21/23 193 <Electronically signed by Alma Rosa singh CNM> Date _ Alma Rosa Peña CNM Cosigner Signature (if applicable): Date CC: SUZANNE Peña; SPEEDY Strange ~ Signed [facility] Work Phone: History of Present illness Fbyghgdoz10 y.o. female presents for possible Lyme disease. She was at a hindu outing where several youths found a tick on their body. She denies seeing a tick on her person. She has a bruise on her left thigh that resembles a bullseye appearance described in Lyme disease so she is concerned. She denies feeling ill.[facility] Work Phone: History of Present illness Wkvphgjor11-fbmg-bid G0 presents for annual exam. Patient safe [...] started vitamins. Patient is no acute concerns [facility] [employer] Work Phone: History of Present illness Eifabpwfl13-iihn-uck presents for IUD removal. Considering fertility in the near future. Been taking vitamins. Patient has no acute [facility] [employer] Work Phone: History of Present illness Narrative* [...] uses no contraception. she is sexually active. [facility]: 12/28/21. * History: 0. * Cervical cancer [...] weight loss. She sees psychiatry every 3 months,CONSULTING IT ARCHITECT annually. * denies any SI or HI. * No other health concerns [facility] Work Phone: Reason for referral (narrative)No reason for referral information availableWSelect [facility] Work Phone: Reason for visit Narrative* Diagnostic Procedure Only (Routine) - Closed Specialty Diagnoses / Procedures Referred By Darnell polk Referred To Contact [facility] Diagnoses Encounter for supervision of high risk multigravida of advanced maternal age, antepartum (HCC) 32 weeks gestation of (HCC) with care elsewhere in third trimester (HCC) Uterine size-date discrepancy, third trimester (HCC) Procedures OBSTETRIC ULTRASOUND WHI US PREG UTERUS AFTER 1ST TRIMEST GESTATION Pauline King APRN.SUZANNE [address] [place] [address] Phone: tel: fax: [address] [phone] Referral ID Status Reason Start Date Expiration Date V isits Requested Visits Authorized [id number] Closed Auto-Generate d Referral 01/04/2025 01/04/[address] [facility] Summary Purpose Family History No Family History [...] No September 24, 2023 2:17pm Power of Desk Top Publisher No September 23 2:17pm Reason for Referral Status Reason Specialty Diagnoses / Procedures Referred By Contact Referred To Contact New Request Physical Therapy Diagnoses Temporomandibular disorder Erma Haskins, DO [address] [place] [address] [facility] Physical [facility] [address] [place] [address] Scheduling Instructions . Status Reason Specialty Diagnoses / Procedures Referred By Contact Referred To Contact New Request Physical Therapy Diagnoses Temporomandibular disorder Occipital neuralgia of right side Erma Haskins, DO [address] [place] [address] [facility] Physical Therapy [address] [place] [address] Chief Complaint 3 month med check.3 month [...] 33 WK OB OB check per MH Reason for Visit Depression Nausea/vomiting in Rh [...] 9:1 9am Low lying placenta, antepartum October 10 h2024 9:19am Obesity affecting October 20, 2024 9:19am [...] 14, 2025 10:44am Supervision of high-risk Augus 2024 10:44am Additional Source Comments INFORMATION SOURCE (unrecogn ized section and content) DATE CREATED AUTHOR 12/30/2017 [facility] DATE CREATED AUTHOR AUTHOR'S ORGANIZ ATION 12/31/2017 [facility] DATE CREATED AUTHOR AUTHOR'S ORGANIZ ATION 11/29/2021 [facility] DATE CREATED AUTHOR AUTHOR'S ORGANIZ ATION 01/20/2022 [employer] DATE CREATED AUTHOR AUTHOR'S ORGANIZ ATION 01/20/2022 [facility] DATE CREATED AUTHOR AUTHOR'S ORGANIZ ATION 12/07/2024 [facility] DATE CREATED AUTHOR AUTHOR'S ORGANIZ ATION 02/17/2025 [facility] DATE CREATED AUTHOR AUTHOR'S ORGANIZ ATION 02/17/2025 [facility] Reason for Visit (unrecogniz ed section and [...] Status: Active Member Role Status Dates Noemi Strange ON AIR TALENT, ON AIR TALENT-C Primary Care Provider Active Team Status: Inactive Member Role Status Dates Dr. Ivette Cornell MD Attending Provider Active Noemi Strange ON AIR TALENT, ON AIR TALENT-C Primary Care Provider, Referring Provider Active Team Status: Inactive Member Role Status Dates Noemi Strange NP, ON AIR TALENT-C Primary Care Provider Active Dr. Ivette Cornell MD Attending Provider, Referr ing Provider Active Team Status: Inactive Member Role Status Dates Noemi Strange ON AIR TALENT, ON AIR TALENT-C Primary Care Provider Active Batsheva Krishna ON AIR TALENT, ON AIR TALENT-C Attending Provider, Referring Provider Active Team Status: Active Member Role Status Dates Noemi Strange NP, ON AIR TALENT-C Primary Care Provider Active Dr. Ivette Cornell MD Attending Provider, Referr ing Provider Active Team Status: Inactive Member Role Status Dates Noemi Strange NP, ON AIR TALENT-C Primary Care Provider, Referring Provider Active Dr. Ivette Cornell MD Attending Provider Active Team Status: Inactive Member Role Status Dates Noemi Strange NP, ON AIR TALENT-C Referring Provider Active Jesus Marinelli CNM Attending Provider Active Team Status: Inactive Member Role Status Dates Dr. Ivette Cornell MD Attending Provider, Referr ing Provider Active Noemi Strange ON AIR TALENT, ON AIR TALENT-C Primary Care Provider Active Team Status: Inactive Member Role Status Dates Bathseva Krishna ON AIR TALENT, ON AIR TALENT-C Attending Provider Active Noemi Strange ON AIR TALENT, ON AIR TALENT-C Primary Care Provider, Referring Provider Active Team Status: Inactive Member Role Status Dates Noemi Strange NP, ON AIR TALENT-C Referring Provider Active Dr. Ivette Cornell MD Attending Provider Active Team Status: Inactive Member Role Status Dates Dr. Lizzeth Abarca DO Attending Provider Activ daria Strange ON AIR TALENT, ON AIR TALENT-C Primary Care Provider, Referring Provider Active Team Status: Inactive Member Role Status Dates Noemi Strange ON AIR TALENT, ON AIR TALENT-C Primary Care Provider, Referring Provider Active Batsheva Krishna ON AIR TALENT, ON AIR TALENT-C Attending Provider Active Team Status: Inactive Member Role Status Dates Noemi Alie ON AIR TALENT, ON AIR TALENT-C Primary Care Provider, Referring Provider Active Alma Rosa Peña CNM Attending Provider Active Team Status: Active Member Role Status Dates Noemi Strange ON AIR TALENT, ON AIR TALENT-C Primary Care Provider Active Alma Rosa Peña CNM Referring Provider, Other Provid er Active Dr. Lizzeth Abarca DO Attending Provider Activ e Team Status: Inactive Member Role Status Dates Noemi Strange ON AIR TALENT, ON AIR TALENT-C Primary Care Provider, Referring Provider Active Dr. Lizzeth Abarca DO Attending Provider Activ e Team Status: Inactive Member Role Status Dates Noemi Strange ON AIR TALENT, ON AIR TALENT-C Primary Care Provider Active Alma Rosa Peña CNM Attending Provider, Referring Pr ovider Active Team Status: Inactive Member Role Status Dates Noemi Strange ON AIR TALENT, ON AIR TALENT-C Primary Care Provider Active Dr. Lizzeth Abarca DO Attending Provider, Refe rring Provider Active Team Status: Inactive Member Role Status Dates Noemi Strange ON AIR TALENT, ON AIR TALENT-C Primary Care Provider, Referring Provider Active Jesus Marinelli CNM Attending Provider Active Team Status: Inactive Member Role Status Dates Noemi Strange ON AIR TALENT, ON AIR TALENT-C Primary Care Provider Active Jesus Marinelli CNM Attending Provider, Referring Pro vider Active Team Status: Active Member Role Status Dates Noemi Strange ON AIR TALENT, ON AIR TALENT-C Primary Care Provider Active Alma Rosa Peña CNM Attending Provider , Referring Provider, Other Provider Active Team Status: Active Member Role Status Dates Noemi Strange ON AIR TALENT, ON AIR TALENT-C Primary Care Provider Active Dr. Ivette Cornell MD Admit Provid er, Attending Provider, Referring Provider, Other Provider Active Team Status: Active Member Role Status Dates Noemi Strange ON AIR TALENT, ON AIR TALENT-C Primary Care Provider Active Dr. Ivette Cornell MD Admit Provid er, Referring Provider, Other Provider Active Dr. Lizzeth Abarca DO Attending Provider Activ e Team Status: Active Member Role Status Dates Noemi Strange ON AIR TALENT, ON AIR TALENT-C Primary Care Provider Active Dr. Lizzeth Abarca DO Admit Prov ider, Attending Provider, Other Provider Active Team Status: Inactive Member Role Status Dates Noemi Strange ON AIR TALENT, ON AIR TALENT-C Primary Care Provider Active Dr. Lizzeth Abarca DO Admit Provider, Attendin g Provider Active Team Status: Inactive Member Role Status Dates Noemi Strange ON AIR TALENT, ON AIR TALENT-C Primary Care Provider, Referring Provider Active Fauzia Bernard ON AIR TALENT, ON AIR TALENT-C Attending Provider Active Team Status: Active Member Role/Relationship Status Dates Noemi Strange NP, ON AIR TALENT-C Primary Care Provider Active Team Status: Inactive Member Role/Relationship Status Dates Noemi Strange NP, ON AIR TALENT-C Primary Care Provider Active Start: October 20, 2024 End: October 20, 2024 Noemi Strange NP, ON AIR TALENT-C Referring Provider Active S tart: October 20, 2024 End: October 20, 2024 Dr. Lizzeth Abarca DO Attending Provider Activ e Start: October 20, 2024 End: October 20, 2024 Team Status: Inactive Member Role/Relationship Status Dates Noemi Strange NP, ON AIR TALENT-C Primary Care Provider Active Start: February 14, 2025 End: February 14, 2025 Dr. Shade Alexander MD Attending Provider Active Start: February 14, 2025 End: February 14, 2025 Dr. Shade Alexander MD Referring Provider Active Start: February 14, 2025 End: February 14, 2025 Team Status: Inactive Member Role/Relationship Status Dates Noemi Strange NP, ON AIR TALENT-C Primary Care Provider Active Start: February 16, [...] or prosecute any alcohol or drug abuse patient.[facility] the event this information is protected by the Federal Confidentiality of Alcohol and Drug Abuse Patient Records regulations: The Federal rules restrict any use of the information to criminally investigate or prosecute any alcohol or drug abuse patient.[facility] the event this information is protected by the Federal Confidentiality of Alcohol and Drug Abuse Patient Records regulations: The Federal rules restrict any use of the information to criminally investigate or prosecute any alcohol or drug abuse patient.[facility] the event this information is protected by the Federal Confidentiality of Alcohol and Drug Abuse Patient Records regulations: The Federal rules restrict any use of the information to criminally investigate or prosecute any alcohol or drug abuse patient.[facility] Center[facility] the event this information is protected by the Federal Confidentiality of Alcohol and Drug Abuse Patient Records regulations: The Federal rules restrict any use of the information to criminally investigate or prosecute any alcohol or drug abuse patient.[facility] the event this information is protected by the Federal Confidentiality of Alcohol and Drug Abuse Patient Records regulations: The Federal rules restrict any use of the information to criminally investigate or prosecute any alcohol or drug abuse patient.[facility] Center[facility] the event this information is protected by the Federal Confidentiality of Alcohol and Drug Abuse Patient Records regulations: The Federal rules restrict any use of the information to criminally investigate or prosecute any alcohol or drug abuse patient.[facility] Center[facility] the event this information is protected by the Federal Confidentiality of Alcohol and Drug Abuse Patient Records regulations: The Federal rules restrict any use of the information to criminally investigate or prosecute any alcohol or drug abuse patient.[facility] the event this information is protected by the Federal Confidentiality of Alcohol and Drug Abuse Patient Records regulations: The Federal rules restrict any use of the information to criminally investigate or prosecute any alcohol or drug abuse patient.[facility] Center[facility] the event this information is protected by the Federal Confidentiality of Alcohol and Drug Abuse Patient Records regulations: The Federal rules restrict any use of the information to criminally investigate or prosecute any alcohol or drug abuse patient.[facility] the event this information is protected by the Federal Confidentiality of Alcohol and Drug Abuse Patient Records regulations: The Federal rules restrict any use of the information to criminally investigate or prosecute any alcohol or drug abuse patient.[facility] Center[facility] the event this information is protected by the Federal Confidentiality of Alcohol and Drug Abuse Patient Records regulations: The Federal rules restrict any use of the information to criminally investigate or prosecute any alcohol or drug abuse patient.[facility] Center[facility] the event this information is protected by the Federal Confidentiality of Alcohol and Drug Abuse Patient Records regulations: The Federal rules restrict any use of the information to criminally investigate or prosecute any alcohol or drug abuse patient.[facility] FOR RECORDS PERTAINING TO PATIENTS WHO ARE [...] BE BASED ON THE PRIMARY CLINICAL RECORDS. [facility]. provides no warranty or guarantee of the accuracy or completeness of information in this document.
[2025-02-17] MEDS: Lactated Ringers 1,000 ML 50 ML IV (07:50)
[2025-02-17 08:20] LABS: Hematocrit 35.3 % (37-47); Hemoglobin 12.3 g/dL (12.0-15.0); Immature Granulocytes Count 0.030 X10^3/uL (0.0-0.0); Mean Corp Hgb Conc 34.8 g/dL (32-36); Mean Corpuscular Volume 85.5 fL (81-99); Mean Platelet Vol. 9.9 fl (6.2-12.0); NRBC Flagged by Analyzer 0 % (0-5); Platelet Count 280 K/mm3 (150-450); RBC Distribution Width CV 13.0 % (11.6-14.6); RBC Distribution Width SD 40.4 fl (35.1-43.9); Red Blood Count 4.13 M/mm3 (4.2-5.4); White Blood Count 9.7 K/mm3 (4.4-11.0)
--- NOTE | 2025-02-17 08:53 | HP.PCM.OB_ITS ---
HPI - General General Date of Admission: 02/17/25 HPI Narrative JUWAN SHIPLEY, is a 34 F who presents with RICHARD:02/23/25 Maternal Data Information Final RICHARD: 02/23/25 [facility] Medical History Low lying placenta, antepartum Rh negative status during Viral illness Chills Abdominal pain Encounter for preconception consultation Spotting affecting Headache Home Medications ?Medication ?Instructions ?Recorded ?Last Taken ?Type multivitamin no.47-iron fum 27 1 cap PO DAILY pregnanc y 02/24/23 02/15/25 19:00 History mg-folate no.1 1 mg-dha 300 mg 1 cap capsule (PNV-DHA) sertraline 100 mg tablet 100 mg PO DAILY depression #30 10/02/23 02/16/25 20:00 Rx tabs 100 mg aspirin 81 mg chewable tablet 1 tab PO DAILY 02/14/25 02/15/25 19:00 History (Aspirin Childrens) 1 TAB Allergy/AdvReac Type Severity Reaction Status Date / Time Sulfa (Sulfonamide Allergy Unknown PT UNSURE Verified 02/17/25 07:52 Antibiotics) OF REACTION codeine AdvReac Severe Vomiting Verified 02/17/25 07:52 Family History Grandmother Breast cancer Father Graves disease Other Heart disease Surgical History (Updated 02/17/25 @ 09:02 by Pauline King CNM) Status post vaginal delivery History of tonsillectomy [place] teeth removed History of placement of ear tubes Social History adopted: No household members: spouse and children number of children: 1 current occupational status: employed 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 current occupational exposures/hazards: No pets and animals: No history of recent travel: No sexually active: Yes Smoking Status: Never smoker alcohol intake: never substance use type: does not use well-balanced diet: daily or most days caffeine: Yes Type: coffee Number of servings: 1 eating out: 1-3 times/week during the past year weight has: decreased > 10 lbs what type of physical activity do you participate in: walking and yoga frequency: 3-4 times per week duration: 30-45 minutes/day marie/jew: Religion seatbelt use: always do you feel safe at home: Yes 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 Date Name GA/Weeks Outcome Route Bth Weight Infant Gen Labor Lgth Anesthesia Del Locatn Provider FOB 09/25/23 Víctor 38 live - full term vacuum 7#10 Male epid ural [facility] Radha Gross Delivery Date: 09/25/23 Last Updated by: Estrellita Chávez Vaccum delivery 2nd degree tear NST FHR Rate Baby A Baseline: 135 Variability:: Moderate Accelerations:: 15 x 15 Decelerations:: None FHR Category:: Category I Uterine Activity:: Irregular ROS Constitutional Constitutional: Reports systems reviewed and no addt'l complaints, except as documented; Denies headache(s) Eyes Eyes: Denies acute decrease in peripheral vision, blurry vision or change in vision ENT HEENT: Reports systems reviewed and no addt'l complaints, except as documented Cardiovascular Cardiovascular: Denies chest pain or dizziness Respiratory/Chest Respiratory/Chest: Denies cough, dyspnea, dyspnea on exertion, shortness of breath at rest or shortness of breath with exertion Gastrointestinal Gastrointestinal: Denies abdominal pain, diarrhea, nausea or vomiting Genitourinary Genitourinary: Denies abdominal discomfort Musculoskeletal Musculoskeletal: Denies limited range of motion Integumentary Integumentary: Reports systems reviewed and no addt'l complaints, except as documented Neurologic Neurologic: Reports systems reviewed and no addt'l complaints, except as documented Psychiatric Psychiatric: Reports systems reviewed and no addt'l complaints, except as documented Endocrine Endocrinology: Reports systems reviewed and no addt'l complaints, except as documented Hematologic/Lymphatic Hematologic/Lymphatic: Reports systems reviewed and no addt'l complaints, except as documented Allergic/Immunologic Allergic/Immunologic: Reports systems reviewed and no addt'l complaints, except as documented Vital Signs Vital Signs Vital Signs: 02/17/25 07:47 02/17/25 07:47 02/17/25 07:47 Temperature 98.1 F Temperature Source Temporal Pulse Rate Respiratory Rate 18 Blood Pressure BP Systolic BP Diastolic 02/17/25 07:54 02/17/25 07:54 02/17/25 07:54 Temperature 98.1 F Temperature Source Pulse Rate 105 H Respiratory Rate Blood Pressure 135/85 H BP Systolic 135 BP Diastolic 85 02/17/25 08:48 02/17/25 08:48 02/17/25 08:48 Temperature Temperature Source Pulse Rate 94 Respiratory Rate 16 Blood Pressure 129/89 H BP Systolic 129 BP Diastolic 89 Weight Weight: 218 lb 0.595 oz Body Mass Index (BMI) 33.1 Physical Exam Const alert and oriented x3 General Appearance: cooperative Orientation / Consciousness: awake, oriented to person, oriented to place and oriented to time Exam Limitations: no limitations HEENT normocephalic Head and Scalp: normal to inspection, normocephalic and atraumatic Face and Sinus: normal facial exam Eyes General Eye: normal appearance of both eyes Neck full ROM Chest Chest: symmetrical chest wall rise Resp normal respiratory effort and normal air movement Auscultation: clear to auscultation bilaterally Cardio regular rate, regular rhythm, S1 normal heart sound, S2 normal heart sound, no murmurs, no rub, no gallops and no clicks GI normal to inspection, nondistended, normoactive bowel sounds and non-tender appearance of the vagina normal Bladder / Kidney Exam: no CVA tenderness Manual OB Exam: estimated gestational size appropriate, presentation cephalic, dilated 3, effaced 50, station -1 and other arom, clear fluid Back/Spine normal ROM Extremity normal to inspection and full ROM Skin no rashes or lesions noted Neuro oriented x3, CN's II-XII intact bilaterally and moves all extremities Sensorium / Orientation: awake, alert and oriented to person Motor Exam: clonus absent Deep Tendon Reflexes: Rt Patellar (L4): 2+ and Lt Patellar (L4): 2+ Labs Labs Labs: Blood Type A NEGATIVE Antibody Screen NEGATIVE Hct 35.3 % (37-47) L Hgb 12.3 g/dL (12.0-15.0) Pap Smear Negative Obstetrics Ultrasound Syphilis Total Ab Nonreactive (Nonreactive) Rubella IgG Antibody Reactive (Nonreactive) Hep Bs Antigen Non-Reactive (Nonreactive) Hepatitis C Antibody Non-Reactive (Nonreactive) Chlamydia DNA (TRISTIAN) Negative (Negative) N.gonorrhoeae DNA (TRISTIAN) Negative (Negative) HIV 1&2 Antibody Non-Reactive (Nonreactive) Glucose 1 Hr 50 gm 120 mg/dL (70-140) Group B Strep DNA Negative (Negative) Rhogam given: No Assessment & Plan (1) 39 weeks gestation of : (2) AMA (advanced maternal age) multigravida 35+: QUALIFIERS: Trimester: second trimester Qualified Code(s): O09.522 - Supervision of elderly multigravida, second trimester COMMENT: declined genetic testing. growth US 36 weeks. (3) Rh negative status during : QUALIFIERS: Trimester: second trimester Qualified Code(s): O26.892 - Other specified related conditions, second trimester; Z67.91 - Unspecified blood type, Rh negative COMMENT: NO rhogam. negative/lab scanned to her chart (4) Supervision of high-risk : QUALIFIERS: Trimester: second trimester Qualified Code(s): O09.92 - Supervision of high risk , unspecified, second trimester COMMENT: PRR, , RICHARD 02/23/25, PC: Víctor, : Renato (5) Depression: QUALIFIERS: Depression Type: other depression Qualified Code(s): F32.89 - Other specified depressive episodes COMMENT: zoloft, counseling encouraged. stable (6) Obesity affecting : QUALIFIERS: Obesity type affecting : unspecified obesity Trimester: second trimester Qualified Code(s): O99.212 - Obesity complicating , second trimester COMMENT: BMI 31.2; HgBA1C ordered (7) History of vacuum extraction assisted delivery: PLAN: Plan 1) Admit to labor and delivery 2) Routine labs 3) Continuous EFM 4) Pain management upon request 5) Dr. Nguyen collaborative physician and notified of patient status, above assessment, and plan.
[2025-02-17] MEDS: Oxytocin 15 Units/NS 250ml 15 UNITS/250 ML IV.SOLN 2 UNITS IV (09:10)
[2025-02-17 09:25] LABS: Syphilis Antibodies Nonreactive (Nonreactive)
[2025-02-17] MEDS: Lactated Ringers 1,000 ML 999 ML IV (11:21)
[2025-02-17] MEDS: 0.9% Saline Lock 10 ML Syringe IV (11:45)
[2025-02-17] MEDS: fentaNYL-bupivacaine (epidural) 100 ML BAG EPIDURAL (12:05)
[2025-02-17] MEDS: Lactated Ringers 1,000 ML 200 ML IV (16:00)
[2025-02-17] MEDS: Oxytocin 15 Units/NS 250ml 15 UNITS/250 ML IV.SOLN 83 UNITS IV (17:15)
--- NOTE | 2025-02-17 17:28 | EX.PCM.OBVAG ---
Assessment & Plan (1) Vaginal delivery: (2) First degree perineal laceration: (3) Lactating mother: Maternal Data Information Final RICHARD: 02/23/25 Vaginal Delivery Maternal Presentation Maternal Presentation: Spontaneous Rupture of Membranes and Elective Induction Type of Induction: Pitocin Vaginal Delivery Information Procedure Performed: Spontaneous Vaginal Delivery Surgeon/Practitioner: Pauline King Date of Procedure: 02/17/25 Pre-Procedure Diagnosis: Elective Induction of Labor Post-Procedure Diagnosis: , first degree perineal laceration Type of anesthesia: Epidural Estimated Blood Loss: 250ml Time of Delivery: 16:42 Findings Description of procedure: Progressed to complete with urge to push. Epidural for pain management. of viable female infant over first degree perineal laceration . APGARS 8,9 respectively. Infant head delivered with body immediately forthcoming.CANx1, delivered through. Placed on maternal abdomen, strong cry. Mouth and nares suctioned for secretions. Pitocin started for active 3rd stage management. Cord doubly clamped and cut by FOB after pulsations ceased, delayed cord clamping. Placenta delivered intact via fernandez, 3 vessel cord intact. Perineum inspected and revealed first degree perineal laceration. Repaired with 3.0 vicryl rapide and epidural. Fundus firm and hemostasis achieved. EBL 250ml. Vaginal sweep completed by me, sponge and instrument correct. Mom and baby stable, planning to breastfeed. Family bonding well. notified of delivery. Presentation: Vertex Amniotic Membrane Rupture Type: Artificial Amniotic Fluid Description: Clear Placental Delivery Description: Spontaneous Placenta Disposition: [facility] Specimen collected: No Cord Vessel Description: 3 Vessels Cord Entanglement: Around neck x 1, loose Nuchal Cord Compression: Without compression A Gender: Female (1 minute): 8 (5 minute): 9 Delayed Cord Clamping: Yes Child Care Supervisor in shop service technician: No Post Vaginal Deli Medications given after delivery: IV Pitocin Episiotomy Description: None Laceration: Perineal Extension/lac and 1st degree Complication Complications: No
[2025-02-18] VITALS (13 sets, daily range): BP systolic 118–155; BP diastolic 69–95; PULSE 75–86; RESP 16–17; TEMP 36.6–36.9; O2SAT 96–99
[2025-02-18] MEDS: Senna/Docusate Sodium 1 Tablet PO (06:46)
--- NOTE | 2025-02-18 14:14 | PCM.PN.OB ---
Subjective Subjective Doing well per patient and nursing staff. Ambulating and taking PO without difficulty. Voiding and passing flatus. Pain controlled. , services for assistance. Denies headache, visual changes, chest pain, shortness of breath, leg pain or increased bleeding. Lochia normal. Objective Data Objective Data Vital Signs: Vital Signs Temp Pulse Resp BP Pulse Ox O2 Del Method 97.8 F 86 16 127/87 H 96 Room Air 02/18/25 12:38 02/18/25 12:38 02/18/25 12:38 02/18/25 12:38 02/18/25 05:54 02/18/25 12:38 Oxygen Delivery Method Room Air Weight: 218 lb 0.595 oz Body Mass Index (BMI) 33.1 Intake & Output: Intake and Output for Last 24 Hours 02/16/25 02/17/25 02/18/25 23:59 23:59 23:59 Intake Total 2564.00 / 2564.00 Output Total 2450 / 2450 600 / 600 Balance 114.00 / 114.00 -600 / -600 Lab / Micro Data 02/17/25 07:50 ROS Constitutional Constitutional: Reports systems reviewed and no addt'l complaints, except as documented; Denies headache(s) Eyes Eyes: Denies acute decrease in peripheral vision, blurry vision or change in vision ENT HEENT: Reports systems reviewed and no addt'l complaints, except as documented Cardiovascular Cardiovascular: Denies chest pain or dizziness Respiratory/Chest Respiratory/Chest: Denies cough, dyspnea, dyspnea on exertion, shortness of breath at rest or shortness of breath with exertion Gastrointestinal Gastrointestinal: Denies abdominal pain, diarrhea, nausea or vomiting Genitourinary Genitourinary: Denies abdominal discomfort Musculoskeletal Musculoskeletal: Denies limited range of motion Integumentary Integumentary: Reports systems reviewed and no addt'l complaints, except as documented Neurologic Neurologic: Reports systems reviewed and no addt'l complaints, except as documented Psychiatric Psychiatric: Reports systems reviewed and no addt'l complaints, except as documented Endocrine Endocrinology: Reports systems reviewed and no addt'l complaints, except as documented Hematologic/Lymphatic Hematologic/Lymphatic: Reports systems reviewed and no addt'l complaints, except as documented Allergic/Immunologic Allergic/Immunologic: Reports systems reviewed and no addt'l complaints, except as documented Physical Exam Const alert and oriented x3 General Appearance: cooperative Orientation / Consciousness: awake, oriented to person, oriented to place and oriented to time Exam Limitations: no limitations HEENT normocephalic Head and Scalp: normal to inspection, normocephalic and atraumatic Face and Sinus: normal facial exam Eyes General Eye: normal appearance of both eyes Neck full ROM Chest Chest: symmetrical chest wall rise Resp normal respiratory effort and normal air movement Auscultation: clear to auscultation bilaterally Cardio regular rate, regular rhythm, S1 normal heart sound, S2 normal heart sound, no murmurs, no rub, no gallops and no clicks GI normal to inspection, nondistended, normoactive bowel sounds and non-tender appearance of the vagina normal Bladder / Kidney Exam: no CVA tenderness Back/Spine normal ROM Extremity normal to inspection and full ROM Skin no rashes or lesions noted Neuro oriented x3, CN's II-XII intact bilaterally and moves all extremities Sensorium / Orientation: awake, alert and oriented to person Motor Exam: clonus absent Deep Tendon Reflexes: Rt Patellar (L4): 2+ and Lt Patellar (L4): 2+ Assessment & Plan (1) Lactating mother: (2) First degree perineal laceration: (3) Vaginal delivery: PLAN: Plan 1) Routine care, PPD #1 2) Vitals signs stable 3) Pain controlled 4) , services PRN 5) D/C home 6) Follow up in 2 weeks and 6 weeks
--- NOTE | 2025-02-18 14:14 | PCM.DC.SUM ---
Providers Date of Admission: 02/17/25 Primary Care Physician: Noemi Dallas, PROGRAM FACILITATOR-C Reason For Visit: VAGINAL Diagnosis Discharge Diagnosis (1) Vaginal delivery: Status: Acute Code(s): O80 - Encounter for full-term uncomplicated delivery (2) First degree perineal laceration: Status: Acute Code(s): O70.0 - First degree perineal laceration during delivery (3) Lactating mother: Status: Acute Code(s): Z39.1 - Encounter for care and examination of lactating mother Plan 1) Admit to labor and delivery 2) Routine labs 3) Continuous EFM 4) Pain management upon request 5) Dr. Nguyen [facility] physician and notified of patient status, above assessment, and plan. Medications at Discharge Home Medications multivitamin no.47-iron fum 27 mg-folate no.1 1 mg-dha 300 mg capsule (PNV-DHA) 1 cap PO DAILY 02/24/23 sertraline 100 mg tablet 100 mg PO DAILY depression #30 tabs 10/02/23 acetaminophen 500 mg tablet 1,000 mg (2 x 500 mg) PO Q6H PRN PRN Pain 1-10 Or Fever #0 tabs 02/18/25 ibuprofen 600 mg tablet 600 mg PO Q6H PRN PRN Pain Score 1-10 #0 tabs 02/18/25 Weight / BMI Weight Weight: 218 lb 0.595 oz Body Mass Index (BMI) 33.1 ABG / Lab / Microbiology Data 02/17/25 07:50 D/C Instructions Discharge Activity: Return to Normal Activity, May Drive, May Shower and May Take a Tub Bath May resume sexual activity in: 6 weeks Weight Bearing Status: Full weight bearing Call your doctor if you observe: Fever of 101 or Higher, Inability to urinate, Using more than 1 pad per hour, Shortness of breath, Chest pain, Increased palpitations (irregular heartbeat), Calf discomfort and Uncontrolled pain DC O2, CPAP, BIPAP Needs Home O2 Discharge instructions: No Please Follow Up With: Pauline King CNM When: 2 week virtual visit and 6 week visit Meaningful Use Info Meaningful Use Meaningful Use Diagnoses (Choose all that apply): None applicable Discharge Plan Admission Admit Date/Time: 02/17/25 07:17 Primary Reason for Your Visit: Attending Provider: Pauline King Primary Care Provider: Noemi Dallas NP Discharge Orders/Prescriptions Prescriptions: New acetaminophen 500 mg Tablet 1,000 mg PO Q6H PRN PRN (Reason: Pain 1-10 Or Fever) Qty: 0 0RF ibuprofen 600 mg Tablet 600 mg PO Q6H PRN PRN (Reason: Pain Score 1-10) Qty: 0 0RF Continued PNV-DHA 27 mg iron-1 mg -300 mg capsule 1 cap PO DAILY sertraline 100 mg tablet 100 mg PO DAILY Qty: 30 12RF Discontinued aspirin [Aspirin Childrens] 81 mg tablet,chewable 1 tab PO DAILY Referrals / Follow Up: Noemi Dallas PROGRAM FACILITATOR, PROGRAM FACILITATOR-C [Primary Care Provider] - Disposition Disposition (needs filled in before D/C Order can be placed): Home, Self Care
--- NOTE | 2025-02-18 14:18 | CASEMGMT ---
Social Work Assessment Labor and Delivery Unit Patient Address: [address] [place] [address] , [place] [address] Phone number: [phone] Date of Referral: 02/17/25 Time of Referral: 17:33 Referred By: Pauline King Date of Intervention: 02/18/25 Time of Intervention: 14:18 Reason for Referral: History of depression History obtained from:? Mother of baby (MOB), father of baby (FOB) and review of medical records. ? Household composition: MOB, FOB (Renato Escalante, age 35), their [id number] son, Víctor and daughter, Denise, born on 02/17/25. Patient's parent/guardian status: ???MOB denied any previous or current issues of domestic violence and described a positive relationship with the FOB. MOB and FOB both denied having any other children. MOB and FOB have been together for 15.5 years and have been for 13 years. Medical History: : 2, Para, now 2. MICHELLE received PNC originally from [place], unknown when and was then a transfer beginning at 25 weeks and 6 days. Visits were observed to be routine. Apgars: 8 and 8. Weight: 7lbs, 8oz. Ornamental Metal Erector Apprentice: Dr. Irena Chávez. Educational Status: MOB and FOB denied any issues with reading, writing or learning comprehension. MICHELLE earned her PhD. and the FOB earned his Master?s. ? Financial Status: MOB and FOB reported that their income is sufficient to meet the needs of their family at this time. 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 Infant Supplies: MOB and FOB reported they have the supplies they need for baby at this time including but not limited to: Car seat, bassinet, crib, pack-n-play, diapers, bottles, breast pump and clothing. Childcare/Caregiver(s): MICHELLE reported that she is taking 11 weeks of maternity leave and after that, newborns maternal grandparents (MGP?s) will watch on Tuesdays, MOB is off on Thursday?s and will be in daycare on /?s. MOB and FOB will share childcare responsibilities when they are both home. Transportation: Both MOB and FOB are licensed drivers and have a reliable vehicle to get baby to and from all medical appointments. MOB and FOB denied any issues/barriers to transportation at this time. Programs/Agencies Involved: MICHELLE is currently connected with [place] [id number] for psychiatry/medication management. Children Services/Legal Issues: MOB and FOB denied any previous or current Children Services involvement or legal involvement. Behavioral Health Issues/Mental Health History:? MICHELLE has a history of anxiety and depression and is on medication.? MOB reported effective management of symptoms at this time. MOB had PPD with first-born but associated it with the traumatic experience with her first-born as well as first-born requiring a 4 day stay in the special care nursery. FOB denied any history of mental health concerns. Racing Mechanic administered the [place] Depression Scale (EPDS). MOB?s score was a 5. Racing Mechanic provided education about score which the MOB verbalized she understood. ?MOB reported she?s already made an appointment for the end of this month with her doctor just to touch base on how she?s doing/feeling as a precaution since she had PPD with her first-born. (assessment was given during the time social welfare administrator was alone with the MOB). Substance Use History:?? MOB and FOB denied any previous or current drug or alcohol abuse.? Family History:? MOB and FOB denied any history of mental health or drug or alcohol abuse history on either side of their family. Drug Screens: None obtained for the MOB or the at the time of this admission. Family/Social Stressors:?? Denied. Support Systems:? MICHELLE identified her biggest support as the FOB, family as well as both of their parents. MOB also reported a strong friend support group. Depression/Shaken Baby/Safe Sleeping: Racing Mechanic provided verbal and written education on PPD, increased risk factors for PPD, Safe Sleeping and Shaken Baby.? MOB and FOB both verbalized an understanding.??? ASSESSMENT: MOB and FOB provided consent to social work visit. Upon arrival, the MOB was sitting upright? in the hospital bed with and the FOB was close-by on a couch. Racing Mechanic observed positive interaction between the MOB and FOB as well as with the MOB and . MOB was observed to be very attentive and gentle with . MOB and FOB were very cooperative and expressed excitement for . ?At the end of the assessment, Racing Mechanic requested to speak with the MOB alone, which she and the FOB were both agreeable to. MOB reported feeling safe in her home and denied any previous or current domestic violence, unmanaged mental health issues either with herself or with the FOB and also denied any concerns with any additional drug or alcohol abuse either with herself or with the FOB as well as any unmanaged mental health concerns. Safe Plan of Care for related to substance use: N/A PLAN: For MOB and baby to be discharged when medically ready. No other services requested or indicated. Lizzeth Higgins, MINERAL RESOURCES INSPECTOR, DTP OPERATOR
== END 2025-02-18 19:10 | disposition home or self-care (01) | DRG 807 ==
PROVIDERS: Admitting Provider Advanced Practice Midwife; PCP Nurse Practitioner Family; Referring Provider Advanced Practice Midwife; Visit Provider Advanced Practice Midwife
DX: O69.81X0 Labor and delivery complicated by cord around neck, without compression, not applicable or unspecified (principal); Z37.0 Single live birth; O99.344 Other mental disorders complicating childbirth; F32.89 Other specified depressive episodes; O99.214 Obesity complicating childbirth; O26.893 Other specified pregnancy related conditions, third trimester; Z67.11 Type A blood, Rh negative; O70.0 First degree perineal laceration during delivery; Z3A.39 39 weeks gestation of pregnancy; Z79.899 Other long term (current) drug therapy; Z87.59 Personal history of other complications of pregnancy, childbirth and the puerperium
CPT/HCPCS: 59025; 59050; 85025; 86780; 86850; 86900; 86901; 99221; A4216; G0378; J2405